=== PATIENT | male | born 1935 | race Caucasian/White ===

== ENCOUNTER 2020-11-16 10:04 | Outpatient (CLI) | payer MEDICARE, SELFPAY ==
--- NOTE | ~2020-11-16 | XR_ITS ---
EXAMINATION: XR abdomen/kub 1V INDICATION: Gross hematuria TECHNIQUE: Supine views of the abdomen were obtained on 2 radiographs. COMPARISON: None FINDINGS: A 6 mm stone projects in the lower pole of the left kidney. The bowel gas pattern is normal . There are changes of left total hip arthroplasty. Brachytherapy seeds are present in the prostate. 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 Severe lumbar spondylosis is noted. IMPRESSION: 1. Left nephrolithiasis. Reviewed, dictated and finalized at location A. OR QUANTITY SURVEYOR IMPRESSION: 1. Left nephrolithiasis.
--- NOTE | ~2020-11-16 | CT_ITS ---
EXAMINATION: CT abdomen pelvis wo/w con DATE: 11/16/2020 11:26 INDICATION: Gross hematuria TECHNIQUE: Computed tomography (CT) of the abdomen and pelvis was performed without intravenous contr ast. CT of the abdomen and pelvis was then performed with a total of 130 mL Omnipaque 350 intravenous contrast using a double-bolus technique for simultaneous opacification of the renal parenchyma and r enal collecting system. The dose-length product (DLP) was 2634.39 mGy-cm. Automated exposure control and iterative reconstruction technique were employed. COMPARISON: None FINDINGS: Minimal dependent atelectasis is present in the lung bases. The heart size is normal. There is a moderate-sized sliding hiatal hernia. The liver, spleen, pancreas, gallbladder, and adrenal gla nds are normal. Cysts of the kidneys measure up to 7 cm on the right. There is a thin septation withi n internal calcification in this large right kidney cyst (Bosniak II). No suspicious renal or urothel ial lesion is identified. There is a 6 mm stone in a lower pole calyx of the left kidney. No stones a re identified in the right kidney, ureters, or bladder. There is no hydronephrosis or hydroureter. Th ere is mild wall thickening of the urinary bladder. Brachytherapy seeds are noted in the prostate. Th ere is no free intraperitoneal gas or evidence of bowel obstruction. No pathologically enlarged abdom inal or pelvic lymph nodes are identified. There are changes of left total hip arthroplasty. There is atrophy of the left iliopsoas muscle. Severe lumbar spondylosis is noted. IMPRESSION: 1. Calyceal stone of the left kidney lower pole. 2. Mild wall thickening of the urinary bladder which could reflect chronic outlet obstruction or cyst itis. Reviewed, dictated and finalized at location A. REGENERATOR IMPRESSION: 1. Calyceal stone of the left kidney lower pole. 2. Mild wall thickening of the urinary bladder which could reflect chronic outl et obstruction or cystitis.
[2020-11-16 11:02] LABS: Estimated Glomerular Filt Rate 58
== END 2020-11-16 10:05 | disposition home or self-care (01) ==
PROVIDERS: Visit Provider Nurse Practitioner Adult Health
DX: R31.0 Gross hematuria (principal); N20.0 Calculus of kidney; R93.41 Abnormal radiologic findings on diagnostic imaging of renal pelvis, ureter, or bladder
CPT/HCPCS: 74018; 74178; Q9967

== ENCOUNTER 2020-11-29 02:06 | Outpatient (CLI) | payer MEDICARE, SELFPAY ==
[2020-11-29 18:12] LABS: SARS-CoV-2 RNA PCR Negative
== END 2020-11-29 02:07 | disposition home or self-care (01) ==
LOC: ANHCOVIDDT 02:10
PROVIDERS: Visit Provider Urology
DX: Z01.812 Encounter for preprocedural laboratory examination (principal); Z20.822 Contact with and (suspected) exposure to COVID-19
CPT/HCPCS: C9803; U0003; U0005

== ENCOUNTER 2020-11-29 09:13 | Outpatient (CLI) | payer MEDICARE, SELFPAY ==
--- NOTE | 2020-11-29 09:21 | ECG_ITS ---
Measurements Intervals [place] Rate: 99 P: 40 DC: 173 QRS: -31 QRSD: 106 T: 81 QT: 362 QTc: 466 Interpretive Statements SINUS RHYTHM VENTRICULAR COUPLET AND FREQUENT ATRIAL PREMATURE COMPLEXES DELAYED PRECORDIAL R/S TRANSITION INFERIOR INFARCT, AGE INDETERMINATE BORDERLINE ST-T WAVE ABNORMALITY- HIGH LATERAL LEADS ABNORMAL ECG Electronically Signed On 11-29-2020 11:06:43 RECOVERY ROOM RN by Jack Love D.O.
[2020-11-29 10:36] LABS: Prothrombin Time 13.3 Seconds (11.1-14.7)
[2020-11-29 10:37] LABS: Anion Gap 5 mmol/L (8-16); Blood Urea Nitrogen 24 mg/dL (9-20); Carbon Dioxide 32 mmol/L (22-30); Chloride 98 mmol/L (98-107); Estimated Glomerular Filt Rate 58; Glucose 135 mg/dL (75-110); Potassium 4.2 mmol/L (3.4-5.0); Sodium 135 mmol/L (137-145)
[2020-11-29 10:37] LABS: Partial Thromboplastin Time 29.1 SECONDS (22.3-36.8)
== END 2020-11-29 09:14 | disposition home or self-care (01) ==
LOC: ANHSURGERY 09:20
PROVIDERS: Anesthesiology; Visit Provider Urology
DX: Z01.818 Encounter for other preprocedural examination (principal); I10 Essential (primary) hypertension; N20.0 Calculus of kidney; Z79.899 Other long term (current) drug therapy
CPT/HCPCS: 36415; 80048; 85610; 85730; 87077; 87086; 87088; 87186; 93005; C9803; U0003; U0005

== ENCOUNTER 2020-12-12 14:05 | Outpatient (CLI) | payer MEDICARE, SELFPAY ==
[2020-12-12 15:03] LABS: Prothrombin Time 13.4 Seconds (11.1-14.7)
[2020-12-12 15:04] LABS: Partial Thromboplastin Time 29.2 SECONDS (22.3-36.8)
== END 2020-12-12 14:06 | disposition home or self-care (01) ==
PROVIDERS: Visit Provider Urology
DX: N20.0 Calculus of kidney (principal); Z01.812 Encounter for preprocedural laboratory examination
CPT/HCPCS: 36415; 85610; 85730; 87077; 87086; 87088

== ENCOUNTER → 2020-12-13 03:36 | Outpatient (CLI) | payer MEDICARE, SELFPAY ==
[2020-12-14 18:18] LABS: SARS-CoV-2 RNA PCR Negative
== END ==
PROVIDERS: Visit Provider Urology
DX: Z01.812 Encounter for preprocedural laboratory examination (principal); Z20.822 Contact with and (suspected) exposure to COVID-19
CPT/HCPCS: C9803; U0003; U0005

== ENCOUNTER 2020-12-16 00:57 | Day surgery (SDC) | payer MEDICARE, SELFPAY ==
[2020-11-28 15:49] VITALS: BMI 28.8
--- NOTE | 2020-11-30 12:26 | PC.NURSE ---
SPOKE TO PT'S RICK. STATES NO CHANGE IN HEALTH HX SINCE LAST INTERVIEW ON 11/28/20
--- NOTE | 2020-12-01 14:51 | WPDANESEPPF ---
Anes - Initial Pre Proc Eval Procedure: Operation Date: 12/02/20 15:30 Proposed Procedures p Left Renal Extracorporeal Shock Wave Lithotripsy - Minesh Tse MD Date/Time: 12/01/20 14:51 Surgeon: Minesh Tse MD Pre Op Diagnosis: Left Renal Kidney Stone Patient Data Age: 85 Gender: M Height: 1.78 m Weight: 91 kg Allergies Allergy/AdvReac Type Severity Reaction Status Date / Time No Known Allergies Allergy Unverified 11/28/20 15:41 Home Medications Medication Instructions Recorded Confirmed Type allopurinol 100 mg tablet 100 mg PO DAILY 10/11/20 11/28/20 History fexofenadine 180 mg tablet 180 mg PO DAILY 10/11/20 11/28/20 History hydrochlorothiazide 25 mg tablet 25 mg PO QAM 10/11/20 11/28/20 History simvastatin 20 mg tablet 20 mg PO DAILY 10/11/20 11/28/20 History tamsulosin 0.4 mg capsule 0.4 mg PO DAILY 10/11/20 11/28/20 History aspirin [Aspir-81] 81 mg PO DAILY 11/28/20 11/28/20 History cephalexin 250 mg PO HS 11/28/20 11/28/20 History fluticasone propion-salmeterol 1 inh INHALATION BID 11/28/20 11/28/20 History [Advair Diskus] uslunfgqvgja-nairczxl-[id number] 1 tablet PO DAILY 11/28/20 11/28/20 History [Centrum Silver] omeprazole 20 mg PO QAM 11/28/20 11/28/20 History PMFSH Past Medical History Medical History (Updated 12/01/20 @ 14:52 by Dieudonne Fleming MD) Arthritis CAD (coronary artery disease) Chronic GERD COPD (chronic obstructive pulmonary disease) Gout HTN (hypertension) Hypercholesterolemia Lung cancer Overweight (BMI 25.0-29.9) Prostate CA Surgical History Surgical History (Updated 12/01/20 @ 14:52 by Dieudonne Fleming MD) 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 Social History Social History (Updated 10/11/20 @ 09:36 by Angie Mccabe MA) Smoking packs per day: 1 Smoking cigarettes per day: 20.0 Years smoked: 40 Smoking pack-years: 40.00 Smoking status: Former smoker Smoking end date: 05/04/95 Alcohol intake: current Drinks per week: 9 Substance use: never Additional living arrangements comments: Spiritual care concerns: No Anes - Eval Final PreProcedure Day of Procedure 12/01/20 14:51 Patient weight: obese Heart: regular rate and rhythm Lungs: clear to auscultation and normal air movement Airway: Mallampati scale class II Neurological: alert and oriented Last oral intake: >/= 8 hours ASA classification: III Emergent: no Anesthetic plan: proceed Anesthesia type and monitoring: general LMA and ETT Informed Consent: The patient's anesthetic plan and its attendant risks and benefits were discussed with the patient/family/POA. Questions were solicited and answers provided to the satisfaction of the patient/family/POA.
--- NOTE | 2020-12-02 08:47 | WPDHPUPDATE1 ---
History and Physical Update Update Date/Time: 12/02/20 08:47 History and Physical has been reviewed, including an updated exam of the patient. There are NO changes in the patient's condition. Risks, benefits, and alternatives have been discussed and questions answered. Patient agrees to proceed with procedure.
[2020-12-09 11:32] VITALS: BMI 28.8
--- NOTE | 2020-12-13 08:40 | P.HP_ITS ---
History of Present Illness History of Present Illness Consent: Risks, benefits, and alternatives have been discussed and questions answered. Patient agrees to proceed with procedure. Chief complaint: Left Renal Stone Narrative: Cedric Mckinney is a 85 year old male with known irritable voiding, overactive bladder and hematuria. He has recently undergone a Botox injection for the overactive bladder. At that time his bladder was found to be unremarkable. CT scan of the abdomen pelvis done for hematuria reveals a 6 mm nonobstructing left renal stone. After discussion of therapeutic options he elected for left ESWL. 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 Social History Social History Smoking packs per day: 1 Smoking cigarettes per day: 20.0 Years smoked: 44 Smoking pack-years: 44.00 Smoking status: Former smoker Smoking end date: 05/04/95 Alcohol intake: current Drinks per week: 1 Substance use: never Additional living arrangements comments: Spiritual care concerns: No Meds Home Medications and Allergies Home Medications Medication Instructions Recorded Confirmed Type allopurinol 100 mg tablet 100 mg PO DAILY 10/11/20 12/09/20 History fexofenadine 180 mg tablet 180 mg PO DAILY 10/11/20 12/09/20 History hydrochlorothiazide 25 mg tablet 25 mg PO QAM 10/11/20 12/09/20 History simvastatin 20 mg tablet 20 mg PO DAILY 10/11/20 12/09/20 History tamsulosin 0.4 mg capsule 0.4 mg PO DAILY 10/11/20 12/09/20 History aspirin [Aspir-81] 81 mg PO DAILY 11/28/20 12/09/20 History fluticasone propion-salmeterol 1 inh INHALATION BID 11/28/20 12/09/20 History [Advair Diskus] ddjoyqounwsk-kfqijehm-zztnms 1 tablet PO DAILY 11/28/20 12/09/20 History [Centrum Silver] omeprazole 20 mg PO QAM 11/28/20 12/09/20 History levofloxacin 500 mg PO HS 12/09/20 12/09/20 History Allergies Allergy/AdvReac Type Severity Reaction Status Date / Time No Known Allergies Allergy Unverified 12/09/20 11:29 Exam Const: General: no acute distress Resp: Effort & Inspection: normal respiratory effort GI: Inspection: non-distended GI Palp: No abdominal tenderness and No Guarding due to palpation present (GI) Auscultation: normal bowel sounds Assessment and Plan Assessment and plan (1) Left renal stone: Code(s): N20.0 - Calculus of kidney Status: Acute Assessment and Plan: * Left ESWL
--- NOTE | 2020-12-15 15:50 | WPDANESEPPF ---
Anes - Initial Pre Proc Eval Procedure: Operation Date: 12/16/20 11:00 Proposed Procedures p Left Renal Extracorporeal Shock Wave Lithotripsy - Minesh Tse MD Date/Time: 12/15/20 15:50 Surgeon: Minesh Tse MD Pre Op Diagnosis: Left Renal Stone Patient Data Age: 85 Gender: M Height: 1.78 m Weight: 91 kg Allergies Allergy/AdvReac Type Severity Reaction Status Date / Time No Known Allergies Allergy Unverified 12/16/20 09:30 Home Medications Medication Instructions Recorded Confirmed Type allopurinol 100 mg tablet 100 mg PO DAILY 10/11/20 12/16/20 History fexofenadine 180 mg tablet 180 mg PO DAILY 10/11/20 12/16/20 History hydrochlorothiazide 25 mg tablet 25 mg PO QAM 10/11/20 12/16/20 History simvastatin 20 mg tablet 20 mg PO DAILY 10/11/20 12/16/20 History tamsulosin 0.4 mg capsule 0.4 mg PO DAILY 10/11/20 12/16/20 History aspirin [Aspir-81] 81 mg PO DAILY 11/28/20 12/16/20 History fluticasone propion-salmeterol 1 inh INHALATION BID 11/28/20 12/16/20 History [Advair Diskus] [id number]-htidodgr-qzkcsp 1 tablet PO DAILY 11/28/20 12/16/20 History [Centrum Silver] omeprazole 20 mg PO QAM 11/28/20 12/16/20 History levofloxacin 500 mg PO HS 12/09/20 12/16/20 History Patient hx anesthesia problems: none Family hx anesthesia problems: none [facility] Past Medical History Medical History Arthritis CAD (coronary artery disease) Chronic GERD COPD (chronic obstructive pulmonary disease) Gout HTN (hypertension) Hypercholesterolemia Lung cancer Overweight (BMI 25.0-29.9) Prostate CA Surgical History Surgical History 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 Social History Social History Smoking packs per day: 1 Smoking cigarettes per day: 20.0 Years smoked: 44 Smoking pack-years: 44.00 Smoking status: Former smoker Smoking end date: 05/04/95 Alcohol intake: current Drinks per week: 1 Alcohol use details: 1 GIN & TONIC/DAY Substance use: never Living arrangements: with family Additional living arrangements comments: Spiritual care concerns: No Anes - Eval Final PreProcedure Day of Procedure 12/15/20 15:50 Patient weight: overweight Heart: regular rate and rhythm Lungs: clear to auscultation and normal air movement Airway: Mallampati scale class II Neurological: alert and oriented Last oral intake: >/= 8 hours ASA classification: III Emergent: no Anesthetic plan: proceed Anesthesia type and monitoring: general LMA Informed Consent: The patient's anesthetic plan and its attendant risks and benefits were discussed with the patient/family/POA. Questions were solicited and answers provided to the satisfaction of the patient/family/POA.
[2020-12-16] VITALS (7 sets, daily range): BP systolic 122–147; BP diastolic 70–82; PULSE 56–78; RESP 13–20; TEMP 36.1–36.2; O2SAT 94–99
--- NOTE | ~2020-12-16 | XR_ITS ---
EXAMINATION: XR abdomen/kub 1V INDICATION: Gross hematuria TECHNIQUE: Supine views of the abdomen were obtained on 2 radiographs. COMPARISON: 11/16/2020 FINDINGS: Bowel contents project over the kidneys limiting sensitivity for renal stones. The previous ly identified stone in the left kidney lower pole is not definitely identified. No definite stone is seen along the expected course of the left ureter. A large osteophyte is noted on the left at L3-4. B rachytherapy seeds are noted in the prostate. There are changes of left total hip arthroplasty. Sever e lumbar spondylosis is noted. IMPRESSION: 1. No definite urolithiasis identified. Reviewed, dictated and finalized at location A. E PILOT
--- NOTE | 2020-12-16 06:38 | WPDHPUPDATE1 ---
History and Physical Update Update Date/Time: 12/16/20 06:38 History and Physical has been reviewed, including an updated exam of the patient. There are NO changes in the patient's condition. Risks, benefits, and alternatives have been discussed and questions answered. Patient agrees to proceed with procedure.
[2020-12-16] MEDS: LACTATED RINGERS 1,000 ML 30 ML IV CONT ×2 (09:50→11:59)
[2020-12-16] MEDS: ceFAZolin 2 GM/D5W 50 ML 2 GM/50 ML BAG IVPB (10:50)
--- NOTE | 2020-12-16 11:27 | PM.PROC ---
Procedure Note - Detailed Date of procedure: 12/16/20 Pre-op diagnosis: Left Renal Stone Post-op diagnosis: same Procedure performed: Left ESWL Description of procedure: The patient was brought to the operative suite where he was placed in the supine position on the Dornier lithotripsy table. The 5mm left lower pole stone could not reliably identified on fluoroscopy so we administered 100cc of IV contrast and shocked the lower pole calyx. A total of 2500 shocks were delivered at a power setting of 4. There appeared to be good fragmentation of the stone. The patient tolerated the procedure well and was taken to the recovery room in good condition. Anesthesia: GLMA Surgeon: Minesh Tse MD Drains: No Packing: No Pathology: none sent Complications: No immediate complications Condition: stable Disposition: PACU
== END 2020-12-16 13:32 | disposition home or self-care (01) ==
PROVIDERS: Visit Provider Urology
PROC: (CPT 50590; principal; 2020-12-16 11:00)
DX: N20.0 Calculus of kidney (principal); I10 Essential (primary) hypertension; I25.10 Atherosclerotic heart disease of native coronary artery without angina pectoris; J44.9 Chronic obstructive pulmonary disease, unspecified; K21.9 Gastro-esophageal reflux disease without esophagitis; E78.00 Pure hypercholesterolemia, unspecified; M10.9 Gout, unspecified; Z85.46 Personal history of malignant neoplasm of prostate; Z85.118 Personal history of other malignant neoplasm of bronchus and lung; Z79.82 Long term (current) use of aspirin; Z95.1 Presence of aortocoronary bypass graft; Z87.891 Personal history of nicotine dependence
CPT/HCPCS: 50590; 74018; J0690; J1100; J2370; J2405; J2704; J7120; Q9966

== ENCOUNTER 2021-03-31 12:47 | Outpatient (CLI) | payer MEDICARE, SELFPAY ==
--- NOTE | ~2021-03-31 | MR_ITS ---
EXAMINATION: MR lumbar spine wo con DATE: 03/31/2021 13:33 INDICATION: Lumbar radiculopathy. TECHNIQUE: Magnetic resonance imaging (MRI) of the lumbar spine was performed without intravenous con trast. Sequences included sagittal T2-weighted FSE, sagittal STIR FSE, sagittal T1-weighted FSE, and axial T2-weighted FSE. COMPARISON: None FINDINGS: There is 12 degrees dextroscoliosis of lumbar spine. There is 4 mm retrolisthesis of L2 on L3 and L3 on L4. There is 3 mm anterolisthesis of L5 on S1. There is severely decreased disc height f rom T12-L1 through L5-S1 with endplate remodeling. The distal spinal cord signal intensity is normal. The conus medullaris is at L1. There are cysts in the kidneys measuring up to 4.4 cm on the right. T he following disc levels are specifically discussed: L1-L2: The disc is bulging and has an annular fissure. There is mild bilateral facet joint osteoarthr itis. There is mild bilateral neural foraminal stenosis. There is mild central canal stenosis. L2-L3: The disc is bulging and has an annular fissure. There is severe bilateral facet joint osteoart hritis. There is moderate bilateral neural foraminal stenosis. There is mild central canal stenosis. L3-L4: The disc is bulging and has an annular fissure. There is severe bilateral facet joint osteoart hritis. There is moderate bilateral neural foraminal stenosis. There is mild central canal stenosis w ith posterior decompression. L4-L5: The disc is bulging and has an annular fissure. There is severe bilateral facet joint osteoart hritis. There is moderate right and mild left neural foraminal stenosis. There is mild central canal stenosis. L5-S1: The disc is bulging and has an annular fissure. There is severe bilateral facet joint osteoart hritis. There is mild bilateral neural foraminal stenosis. There is mild central canal stenosis. IMPRESSION: 1. Severe lumbar spondylosis. 2. Lumbar dextroscoliosis. Reviewed, dictated and finalized at location A.
== END 2021-03-31 12:48 | disposition home or self-care (01) ==
PROVIDERS: Visit Provider Neurological Surgery
DX: M54.16 Radiculopathy, lumbar region (principal); M47.816 Spondylosis without myelopathy or radiculopathy, lumbar region; M41.86 Other forms of scoliosis, lumbar region
CPT/HCPCS: 72148

== ENCOUNTER 2021-07-24 13:57 | Outpatient (CLI) | payer MEDICARE, SELFPAY ==
--- NOTE | ~2021-07-24 | XR_ITS ---
EXAMINATION: XR abdomen/kub 1V DATE: 07/24/2021 14:30 INDICATION: Left kidney stone. TECHNIQUE: A supine view of the abdomen on 2 radiographs was obtained. COMPARISON: CT abdomen and pelvis 11/16/20, abdomen radiographs 12/16/2020, 11/16/2020 FINDINGS: There are no dilated loops of bowel. There are brachytherapy seeds in the prostate. There i s a 6 mm stone in distal left ureter. There is a total left hip arthroplasty. Median sternotomy wires and mediastinal surgical clips are seen, likely from prior coronary artery bypass grafting. IMPRESSION: 1. 6 mm stone in distal left ureter. Reviewed, dictated and finalized at location A.
== END 2021-07-24 13:58 | disposition home or self-care (01) ==
LOC: ANHIMG 14:05
PROVIDERS: Visit Provider Urology
DX: N21.0 Calculus in bladder (principal)
CPT/HCPCS: 74018

== ENCOUNTER 2021-08-01 08:36 | Outpatient (CLI) | payer MEDICARE, SELFPAY ==
--- NOTE | ~2021-08-01 | CT_ITS ---
EXAMINATION: CT abdomen pelvis wo con EXAM DATE: 08/01/2021 08:59 INDICATION: Left-sided flank pain. Kidney stone. TECHNIQUE: Spiral CT of the abdomen and pelvis was performed without contrast. Axial, coronal and sag ittal images were reviewed. The dose-length product (DLP) for this examination was 440.63 mGy-cm. T he exposure was tailored according to patient size (auto mA exposure control), and iterative reconstr uction (ASIR) was used as additional dose reduction technique. Comparison is made to prior examinatio n from 11/16/2020. FINDINGS: There are bilateral fluid density renal lesions consistent with cysts, largest on the right measuring 7.5 cm. There are bilateral renal peripelvic cysts. There is bilateral renal cortical thin bryanna, atrophy. There is a stone in the distal aspect of the left ureter, about 4 cm from the ureterov esicular junction, measuring about 3 x 6 mm. No hydronephrosis at present. There are prostate radiat ion seeds. The bladder is unremarkable. The liver, spleen, adrenal glands and pancreas are unremarkable. Gallbladder is unremarkable. No bi liary obstruction. There is no retroperitoneal or pelvic lymphadenopathy. There is extensive scatt ered arterial sclerotic disease. The appendix is normal. There is moderate sigmoid predominant colonic diverticulosis. There is no ad jacent inflammatory change to suggest diverticulitis. There is small to moderate-sized gastroesophag eal hiatal hernia. There is expected amount of colonic stool. No free intraperitoneal gas. The h eart is normal in size. There are no pericardial or pleural effusions. The lung bases are unremarka ble. Advanced lumbar spondylosis. There are no osteoblastic or osteolytic lesions identified. There is left hip replacement. Mild thoracolumbar scoliosis. IMPRESSION: 1. Left distal ureteral 3 x 6 mm stone. No hydronephrosis at present. 2. Moderate sigmoid diverticulosis. 3. Small to moderate hiatal hernia. 4. Other chronic findings. Reviewed, dictated and finalized at location A.
== END 2021-08-01 08:37 | disposition home or self-care (01) ==
LOC: ANHIMG 08:40
PROVIDERS: Visit Provider Urology
DX: N20.0 Calculus of kidney (principal); K57.30 Diverticulosis of large intestine without perforation or abscess without bleeding; K44.9 Diaphragmatic hernia without obstruction or gangrene
CPT/HCPCS: 74176

== ENCOUNTER 2021-08-15 13:59 | Outpatient (RCR) | payer MEDICARE, SELFPAY ==
--- NOTE | 2021-08-15 15:11 | PTOPEVAL ---
PHYSICAL THERAPY EVALUATION AND PLAN OF CARE 08-15-21 Thank you for referring Cedric Mckinney to [facility] for the diagnosis of BPPV. He is to call for any questions, or to make an appointment, if additional PT is needed, ?0-2 x/week for 4 weeks. Please review, sign, date and return this plan of care ANU. I agree with and certify that the following plan of care is medically necessary. Referring Physician Date Attending Provider: Minesh Mckoy MD PT Outpatient Evaluation Document 08/15/21 14:10 JULIANNA (Rec: 08/15/21 15:10 JULIANNA [id number]) Past Medical History Source of Past Medical History Recalled from Previous Visit, Confirmed with Patient/Family Neurological History Hx Neurological Disorders No Significant History Cardiovascular History Hx Cardiac Catheterization Yes Hx Coronary Artery Bypass Graft Yes: CABG 5 VESSEL 2015 Hx Hypercholesterolemia Yes: meds Hx Hypertension Yes: meds Hx Other Cardiac Disorders Yes Respiratory History Hx Chronic Obstructive Pulmonary Disease Yes (COPD) Hx Other Respiratory Disorders Yes: LUNG CA 2019- RADIATION ONLY Gastrointestinal History Hx Gastroesophageal Reflux Disease Yes Genitourinary History Hx Kidney Stones Yes: LT KIDNEY STONE Hx Other Genitourinary Disorders Yes: SELF CATHS QID X 2 YEARS, BOTOX INJECTIONS TO BLADDER Q6 MO, PROSTATE CA Musculoskeletal History Hx Arthritis Yes: R ankle Hx Back Pain Yes: chronic pain in back Hx Gout Yes Hx Joint Replacement Yes: LEFT HIP ARTHROPLASTY 1997 Hx Spinal Surgery Yes: lumbar surgery Hematological History Hx Hematological Disorders No Significant History Endocrine History Hx Endocrine Disorders No Significant History HEENT History Hx Cataracts Yes: BILAT IMPLANTS Hx Sinus Problems Yes: seasonal allergies- 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
--- NOTE | 2021-10-03 13:27 | PCPTNOTE ---
PHYSICAL THERAPY DISCHARGE 10-03-21 Attending Provider: Minesh Mckoy MD Patient:Cedric Mckinney Date of :1935 Cedric has not returned for any further treatments since the initial evaluation on 08/15/2021, therefore he will be discharged at this time. The goals were not assessed. Thank you for referring Mr. Mckinney to [facility]. Please review, sign, date and return this discharge summary ANU. I have been updated about the patient's current status and I agree with discharge from the above service at this time. Referring Physician Date
== END 2021-10-04 08:57 | disposition home or self-care (01) ==
LOC: ANHPT 13:59
PROVIDERS: Visit Provider Otolaryngology
DX: H81.10 Benign paroxysmal vertigo, unspecified ear (principal)
CPT/HCPCS: 97161

== ENCOUNTER 2021-08-28 09:46 | Outpatient (CLI) | payer MEDICARE, SELFPAY ==
--- NOTE | ~2021-08-28 | CT_ITS ---
EXAMINATION: CT abdomen pelvis wo con DATE: 08/28/2021 10:17 INDICATION: Hematuria, left-sided kidney stone TECHNIQUE: Computed tomography (CT) of the abdomen and pelvis was performed without intravenous contr ast. The dose-length product (DLP) was 540.39 mGy-cm. Automated exposure control and iterative recons truction technique were employed. COMPARISON: 08/01/2021 FINDINGS: Minimal dependent atelectasis is present in the lung bases. The heart size is normal. Bilat eral gynecomastia is noted. 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 Median s ternotomy wires are noted. There is a moderate-sized sliding hiatal hernia. The liver, spleen, pancre as, gallbladder, and adrenal glands are normal. Cysts of the kidneys measure up to 7.6 cm on the righ t. The largest right kidney cyst demonstrates septation within internal calcification. The previously described 6 mm distal left ureteral stone now resides near the left ureterovesicular junction. There is no appreciable hydronephrosis or hydroureter. There is calcified atherosclerosis of the aorta and many of the other arteries. No pathologically enlarged abdominal or pelvic lymph nodes are identifie d. Streak artifact from left total hip arthroplasty slightly limits evaluation of the pelvis. Brachyt herapy seeds are noted in the prostate. The appendix is normal. There is severe lumbar spondylosis. IMPRESSION: 1. 6 mm stone of the left ureter which demonstrates distal migration and now resides near the left ur eterovesicular junction. Reviewed, dictated and finalized at location A. IMPRESSION: 1. 6 mm stone of the left ureter which demonstrates distal migration and now re sides near the left ureterovesicular junction.
== END 2021-08-28 09:47 | disposition home or self-care (01) ==
LOC: ANHIMG 09:50
PROVIDERS: Visit Provider Urology
DX: N20.0 Calculus of kidney (principal)
CPT/HCPCS: 74176

== ENCOUNTER 2021-08-31 01:27 | Day surgery (SDC) | payer MEDICARE, SELFPAY ==
[2021-08-30 09:39] VITALS: BMI 28.4
--- NOTE | 2021-08-30 10:58 | WPDANESEPPF ---
Anes - Initial Pre Proc Eval Procedure: Operation Date: 08/31/21 13:15 Proposed Procedures p Cystoscopy, Left Ureteroscopy, Possible Retrograde Pyelogram, Stone Extraction, Possible Stent Placement - Minesh Tse MD s Possible Holmium Laser Procedure - Mniesh Tse MD Date/Time: 08/30/21 10:58 Surgeon: Minesh Tse MD Pre Op Diagnosis: ureteral stones Patient Data Age: 85 Gender: M Height: 1.78 m Weight: 90 kg Allergies Allergy/AdvReac Type Severity Reaction Status Date / Time No Known Allergies Allergy Verified 08/30/21 09:38 Home Medications Medication Instructions Recorded Confirmed Type allopurinol 100 mg tablet 100 mg PO DAILY 10/11/20 08/30/21 History fexofenadine 180 mg tablet 180 mg PO DAILY 10/11/20 08/30/21 History hydrochlorothiazide 25 mg tablet 25 mg PO QAM 10/11/20 08/30/21 History simvastatin 20 mg tablet 20 mg PO DAILY 10/11/20 08/30/21 History tamsulosin 0.4 mg capsule 0.4 mg PO DAILY 10/11/20 08/30/21 History aspirin 81 mg PO DAILY 11/28/20 08/30/21 History fluticasone propion-salmeterol 1 inh INHALATION BID 11/28/20 08/30/21 History [Advair Diskus] [id number] 1 tablet PO DAILY 11/28/20 08/30/21 History omeprazole 20 mg PO QAM 11/28/20 08/30/21 History levofloxacin 500 mg PO HS 12/09/20 08/30/21 History prochlorperazine maleate 10 mg 10 mg PO Q8H PRN 07/26/21 08/30/21 History tablet Patient hx anesthesia problems: none Family hx anesthesia problems: none Results Review: All pre-operative results and documents have been reviewed as part of the pre-operative evaluation. [facility] Past Medical History Medical History Arthritis CAD (coronary artery disease) Chronic GERD COPD (chronic obstructive pulmonary disease) Gout HTN (hypertension) Hypercholesterolemia Lung cancer Overweight (BMI 25.0-29.9) Prostate CA Surgical History Surgical History S/P CABG (coronary artery bypass graft) 5 V 2015 Social History Social History Smoking packs per day: 1 Smoking cigarettes per day: 20.0 Years smoked: 40 Smoking pack-years: 40.00 Smoking status: Former smoker Tobacco type: cigarettes Second hand tobacco smoke exposure: No Smoking end date: 05/04/95 Alcohol intake: current Drinks per week: 9 Alcohol use details: 1 GIN & TONIC/DAY Substance use: never Substance use type: does not use Living arrangements: with family Additional living arrangements comments: Spiritual care concerns: No Anes - Eval Final PreProcedure Day of Procedure 08/30/21 10:58 Patient weight: overweight Heart: regular rate and rhythm Lungs: clear to auscultation and normal air movement Airway: Mallampati scale class II Neurological: alert and oriented Last oral intake: >/= 8 hours ASA classification: III Emergent: no Anesthetic plan: proceed Anesthesia type and monitoring: general LMA and standard monitoring Results Review: All pre-operative results and documents have been reviewed as part of the pre-operative evaluation. Informed Consent: The patient's anesthetic plan and its attendant risks and benefits were discussed with the patient/family/POA. Questions were solicited and answers provided to the satisfaction of the patient/family/POA.
[2021-08-31] VITALS (7 sets, daily range): BP systolic 131–160; BP diastolic 65–87; PULSE 65–78; RESP 15–18; TEMP 36.1–36.6; O2SAT 94–100; BMI 28.4
--- NOTE | ~2021-08-31 | XR_ITS ---
EXAMINATION: XR fluoroscopy no charge INDICATION: Intraoperative stone removal TECHNIQUE: Fluoroscopy exposure time was 1.7 seconds. Two intraoperative fluoroscopic images are subm itted for review. COMPARISON: None available FINDINGS: Fluoroscopic images demonstrate brachytherapy seeds in the prostate, a left total hip arthr oplasty, and a guidewire in the left ureter. Please refer to procedure note for full details. IMPRESSION: 1. Please refer to procedure note for full details. Reviewed, dictated and finalized at location A.
--- NOTE | 2021-08-31 06:45 | PM.HPGS ---
History of Present Illness History of Present Illness Consent: Risks, benefits, and alternatives have been discussed and questions answered. Patient agrees to proceed with procedure. 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 Given history of urolithiasis, a recent CT scan showed 6mm left distal ureteral stone that hasn't passed over several weeks. Review of Systems Cardiovascular: Cardiovascular: Denies chest pain, Denies lightheadedness, Denies palpitations and Denies dyspnea Respiratory: Respiratory: Denies dyspnea Gastrointestinal: Gastrointestinal: Denies diarrhea, Denies nausea and Denies vomiting Genitourinary: Genitourinary: Denies hematuria and Denies dysuria Endocrine: Endocrine: Denies palpitations PMFSH Past Medical History Medical History Arthritis CAD (coronary artery disease) Chronic GERD COPD (chronic obstructive pulmonary disease) Gout HTN (hypertension) Hypercholesterolemia Lung cancer Overweight (BMI 25.0-29.9) Prostate CA Surgical History Surgical History 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 Social History Social History Smoking packs per day: 1 Smoking cigarettes per day: 20.0 Years smoked: 40 Smoking pack-years: 40.00 Smoking status: Former smoker Tobacco type: cigarettes Second hand tobacco smoke exposure: No Smoking end date: 05/04/95 Alcohol intake: current Drinks per week: 9 Alcohol use details: 1 GIN & TONIC/DAY Substance use: never Substance use type: does not use Living arrangements: with family Additional living arrangements comments: Spiritual care concerns: No Meds Home Medications and Allergies Home Medications Medication Instructions Recorded Confirmed Type allopurinol 100 mg tablet 100 mg PO DAILY 10/11/20 08/30/21 History fexofenadine 180 mg tablet 180 mg PO DAILY 10/11/20 08/30/21 History hydrochlorothiazide 25 mg tablet 25 mg PO QAM 10/11/20 08/30/21 History simvastatin 20 mg tablet 20 mg PO DAILY 10/11/20 08/30/21 History tamsulosin 0.4 mg capsule 0.4 mg PO DAILY 10/11/20 08/30/21 History aspirin 81 mg PO DAILY 11/28/20 08/30/21 History fluticasone propion-salmeterol 1 inh INHALATION BID 11/28/20 08/30/21 History [Advair Diskus] [id number] 1 tablet PO DAILY 11/28/20 08/30/21 History omeprazole 20 mg PO QAM 11/28/20 08/30/21 History levofloxacin 500 mg PO HS 12/09/20 08/30/21 History prochlorperazine maleate 10 mg 10 mg PO Q8H PRN 07/26/21 08/30/21 History tablet Allergies Allergy/AdvReac Type Severity Reaction Status Date / Time No Known Allergies Allergy Verified 08/30/21 09:38 Exam Const: General: no acute distress Resp: Effort & Inspection: normal respiratory effort GI: Inspection: non-distended GI Palp: No abdominal tenderness and No Guarding due to palpation present (GI) Auscultation: normal bowel sounds Assessment and Plan Assessment and plan (1) Left ureteral stone: Code(s): N20.1 - Calculus of ureter Status: Acute Assessment and Plan: Cystoscopy, left ureteroscopy with stone extraction, possible laser lithotripsy and possible stent placement.
--- NOTE | 2021-08-31 06:48 | WPDHPUPDATE1 ---
History and Physical Update Update Date/Time: 08/31/21 06:48 History and Physical has been reviewed, including an updated exam of the patient. There are NO changes in the patient's condition. Risks, benefits, and alternatives have been discussed and questions answered. Patient agrees to proceed with procedure.
[2021-08-31] MEDS: LACTATED RINGERS 1,000 ML 30 ML IV CONT (12:00)
[2021-08-31] MEDS: ceFAZolin 2 GM/D5W 50 ML 2 GM/50 ML BAG IVPB (13:05)
[2021-08-31 13:12] LABS: Anion Gap 7 mmol/L (8-16); Blood Urea Nitrogen 24 mg/dL (9-20); Calcium 9.5 mg/dL (8.4-10.2); Carbon Dioxide 29 mmol/L (22-30); Chloride 104 mmol/L (98-107); Estimated CRCL calculation 49 ml/min; Estimated Glomerular Filt Rate > 60; Glucose 103 mg/dL (65-110); Potassium 3.8 mmol/L (3.4-5.0); Sodium 140 mmol/L (137-145)
[2021-08-31] MEDS: KETOROLAC 15 MG/ML VIAL (*BKC) IV PUSH (13:31)
--- NOTE | 2021-08-31 13:36 | P.OP_ITS ---
Procedure Note - Detailed Date of Procedure 08/31/21 Pre-op Diagnosis Left ureteral stone Post-op Diagnosis same Procedure Performed Cystoscopy, left ureteroscopy with stone extraction Surgeon Minesh Tse MD Anesthesia general Description of Procedure The patient was brought to the operative suite where he is prepped and draped in a routine sterile fashion while in the dorsal lithotomy position after the uneventful induction of a general LMA anesthetic. A 19F rigid cystoscope was placed in the bladder. There are no urethral strictures. His prostatic urethra measures, approximately, 3.0cm with moderate median lobe enlargement. The bladder mucosa was endoscopically normal without hyperemia or neoplasm. There was a single, orthotopic ureteral orifice bilaterally. A 0.035 glidewire was advanced into the left renal pelvis under fluoroscopy. The distal ureter was dilated with an 8F/10F ureteral dilator. Ureteroscopy was undertaken with a short, tapered, semi-rigid ureteroscope and the stone was extracted with ease using a 1.9F Escape disposable stone basket. Due to the ease of this manip ulation I opted not to place a ureteral stent. The patient's bladder was emptied and was taken to the recovery room having tolerated this procedure well. Drains No Packing No Pathology yes Complications No immediate complications Condition stable Disposition PACU
== END 2021-08-31 15:15 | disposition home or self-care (01) ==
PROVIDERS: Anesthesiology; Visit Provider Urology
PROC: (CPT 52352; principal; 2021-08-31 13:15)
DX: N20.1 Calculus of ureter (principal); I10 Essential (primary) hypertension; K21.9 Gastro-esophageal reflux disease without esophagitis; J44.9 Chronic obstructive pulmonary disease, unspecified; M19.90 Unspecified osteoarthritis, unspecified site; E78.00 Pure hypercholesterolemia, unspecified; Z79.82 Long term (current) use of aspirin; I25.10 Atherosclerotic heart disease of native coronary artery without angina pectoris; M10.9 Gout, unspecified; Z85.46 Personal history of malignant neoplasm of prostate; Z95.1 Presence of aortocoronary bypass graft; Z87.891 Personal history of nicotine dependence
CPT/HCPCS: 52352; 36415; 74018; 80048; 82365; 88300; C1769; J0690; J1100; J1885; J2405; J2704; J3010; J7120; Q9966

== ENCOUNTER 2022-03-06 09:56 | Outpatient (CLI) | payer MEDICARE, SELFPAY ==
--- NOTE | ~2022-03-06 | XR_ITS ---
EXAMINATION: XR abdomen/kub 1V INDICATION: Left-sided stone TECHNIQUE: Supine views of the abdomen were obtained on 2 radiographs. COMPARISON: 07/24/2021 FINDINGS: The previously described distal left ureteral stone is no longer evident. Bowel contents pr oject over the kidneys limiting sensitivity for renal stones. No urolithiasis is identified. There is severe lumbar spondylosis. Changes of left total hip arthroplasty are noted. There are brachytherapy seeds in the prostate. IMPRESSION: 1. No urolithiasis identified. Reviewed, dictated and finalized at location A.
== END 2022-03-06 09:57 | disposition home or self-care (01) ==
PROVIDERS: Visit Provider Urology
DX: N20.0 Calculus of kidney (principal); M47.816 Spondylosis without myelopathy or radiculopathy, lumbar region
CPT/HCPCS: 74018

== ENCOUNTER 2024-04-16 08:38 | Outpatient (CLI) | payer MEDICARE, SELFPAY | END 2024-04-16 08:39 | disposition home or self-care (01) | LOC: ANHAUDASC 08:40 | PROVIDERS: Visit Provider Otolaryngology | DX: H91.93 Unspecified hearing loss, bilateral (principal) | CPT/HCPCS: 92557; 92567 ==

== ENCOUNTER 2024-07-22 09:30 | Outpatient (RCR) | payer SELFPAY | END 2024-07-28 23:59 | disposition home or self-care (01) | LOC: ANHAUDASC 09:30 | PROVIDERS: Visit Provider Otolaryngology | DX: Z46.1 Encounter for fitting and adjustment of hearing aid (principal) | CPT/HCPCS: 99199; V5261; V5264 ==

== ENCOUNTER 2024-10-28 22:15 | Emergency (ER) | payer MEDICARE, SELFPAY ==
[2024-10-28 22:16] VITALS: BP 161/70; PULSE 68; RESP 20; TEMP 36.1; O2SAT 96
--- NOTE | 2024-10-28 22:21 | ECG_ITS ---
Test Date: 2024-10-28 22:27:51 Measurements Intervals [place] Rate: 59 P: 24 NE: 214 QRS: 37 QRSD: 142 T: 61 QT: 451 QTc: 447 Interpretive Statements SINUS BRADYCARDIA WITH FIRST DEGREE AV BLOCK INDETERMINATE AXIS RIGHT BUNDLE BRANCH BLOCK [120+ ms QRS DURATION, UPRIGHT V1, 40+ ms S IN I/aVL/V4/V5/V6] CAN NOT RULE OUT INFERIOR INFARCTION AGE UNDETERMINED ABNORMAL ECG Electronically Signed On 10-30-2024 16:49:36 SOCK LINING STITCHER by Zaki Sue M.D.
--- NOTE | 2024-10-28 23:35 | PC.NURSE ---
Pt approached triage desk stating that they were going to go home. This RN advised them to be seen at nearest ER if they feel it is necessary.
--- OUTSIDE RECORDS SUMMARY | 2024-11-05 00:07 | XMS_ITS | Continuity of Care Document ---
Author Organization [facility] Address [address] [place] [id number] Care Team Providers Care Epic Specialist Name Role Phone Luis Fernando Lebron Primary Care Physician Jeremie Mujica Unavailable Garland Haywood Unavailable Encounter [facility] Financial Number [id number] Date(s): 02/11/23 - 02/11/[address] [id number] Discharge Disposition: Home or Self Care Attending Physician: Luis Fernando Lebron M.D. Admitting Physician: Luis Fernando Lebron M.D. Referring Physician: Luis Fernando Lebron M.D. Allergies, Adverse Reactions, Alerts No Known Allergies Assessment and Plan Future Appointments Appointment Date:02/19/2023 01:30:00 PM Scheduled Provider:Gerhard Sultana MD Location:Rad Onc Appointment Type:RO Follow Up Appointment Date:03/11/2023 08:30:00 AM Scheduled Provider:Garland Haywood MD Location:[facility] Spec Appointment Type:Virtual Telephone Visit Appointment Date:07/31/2023 10:15:00 AM Scheduled Provider:Susan Montiel MD Location:[facility] 310N Appointment Type:CPA EP Established Patient Immunizations Given and Recorded Vaccine Date Status Refusal Reason SARS-CoV-2 (COVID-19) mRNA BNT-162b2 vax 08/03/22 Recorded influenza virus vaccine, inactivated 08/03/22 Graham rded influenza virus vaccine, inactivated 08/03/22 Graham rded influenza virus vaccine, inactivated 08/29/18 Graham rded influenza virus vaccine, H1N1, inactivat 07/15/17 Recorded pneumococcal 13-valent vaccine 10/14/14 Recorded Medications Advair Diskus 250 mcg-50 mcg inhalation powder 1 puff(s), Inhalation, bid, 180 each, 10, 90, Route to Pharmacy Electronically, [facility], [id number], 175, cm, 11/13/2021 1717, Height, 86.3, kg, 11/13/2021 1717, Weight Start Date: 01/22/22 Status: Ordered albuterol 90 mcg/inh inhaler 2 puff(s), Inhalation, [id number], PRN, 1 each, Inhaler, 3, 3, shortness of breath, Slow Breath inhaleslowly and deeply , Route to Pharmacy Electronically, [facility], [id number], 175, cm, 07/25/2022 1145, Height, 97.... Start Date: 07/25/22 Status: Ordered allopurinol 100 mg oral tablet 1 tablet(s), Oral, daily, 90 tablet(s), 3, FOR GOUT PREVENTION., Route to Pharmacy Electronically, [facility], [id number], 175, cm, 07/25/2022 1145, Height, 97.5, kg, 07/25/2022 1145, Weight Start Date: 08/06/22 Status: Ordered aspirin 81 mg oral enteric coated tablet 81 mg, 1 tablet(s), Oral, daily, Tab EC, 0 Start Date: 11/08/17 Status: Ordered Entresto 49 mg-51 mg oral tablet 1 tablet(s), Oral, bid, 180 tablet(s), Tablet(s), 3, 3, Route to Pharmacy Electronically, [id number], [id number], 178, cm, 09/22/2022 2335, Height, 93.7, kg, 09/26/2022 0507, Weight Start Date: 10/18/22 Stop Date: 10/13/23 Status: Ordered fexofenadine 180 mg oral tablet 180 mg, 1 tablet(s), Oral, daily, 30 tablet(s), Tablet(s), 0 Start Date: 11/08/17 Status: Ordered Flomax 0.4 mg oral capsule 0.4 mg, 1 capsule(s), Oral, pm after dinner, 90 capsule(s), Capsule(s), 3, 3, Route to Pharmacy Electronically, [facility], [id number], 172.72, cm, 11/06/2022 1120,Height, 89.09, kg, 11/06/2022 1120, Weight Start Date: 11/09/22 Stop Date: 11/04/23 Status: Ordered Keflex 250 mg oral capsule 250 mg, 1 capsule(s), Oral, qhs, 0 Start Date: 09/26/22 Status: Ordered Lasix 40 mg oral tablet 40 mg, 1 tablet(s), Oral, daily, 90 tablet(s), Tablet(s), 3, 3, Route to Pharmacy Electronically, [facility], [id number], 178, cm, 09/22/2022 2335, Height, 93.7, k g, 09/26/2022 0507, Weight Start Date: 10/18/22 Stop Date: 10/13/23 Status: Ordered Metoprolol Tartrate 50 mg oral tablet 50 mg, 1 tablet(s), Oral, bid, 180 tablet(s), Tablet(s), 3, 3, Route to Pharmacy Electronically, [facility], [id number], 178, cm, 09/22/2022 2335, Height, 93.7, kg, 09/26/2022 0507, Weight Start Date: 10/18/22 Stop Date: 10/13/23 Status: Ordered Multivitamin oral tablet 1 tablet(s), Oral, daily, 30 tablet(s), 0 Start Date: 11/12/12 Status: Ordered omeprazole 20 mg oral delayed release capsule 1 capsule(s), Oral, daily, 90 capsule(s), 3, Route to Pharmacy Electronically, [email or web address], [id number], 178, cm, 09/22/2022 2335, Height, 93.7, kg, 09/26/2022 0507, Weight Start Date: 10/01/22 Status: Ordered Potassium Chloride (Eqv-K-Tab) 10 mEq oral tablet, extended release 10 mEq, 1 tablet(s), Oral, bid, 180 tablet(s), 3, 3, [facility] to [facility]acy Electronically, [facility], [id number], 172.72, cm, 11/06/2022 1120, Height, 89.09, kg, 11/06/2022 1120, Weight Start Date: 11/09/22 Stop Date: 11/04/23 Status: Ordered prochlorperazine 10 mg oral tablet 10 mg, 1 tablet(s), Oral, [id number], PRN, 30 each, Tablet(s), 1, 1, nausea, Route to Pharmacy Electronically, [facility], [id number], 172.72, cm, 11/06/2022 1120, Height, 89.09, kg, 11/06/2022 1120, Weight Start Date: 11/06/22 Stop Date: 01/05/23 Status: Ordered rosuvastatin 20 mg oral tablet 1 tablet(s), Oral, HS, 90 tablet(s), 3, Route to Pharmacy Electronically, [email or web address], [id number], 175.26, cm, 04/26/2022 0917, Height, 97.7, kg, 04/26/2022 0917, Weight Start Date: 05/29/22 Status: Ordered Problem List Condition Confirmation Course Effective Dates Status H ealth Status Informant Asthma Confirmed Active Asthma-COPD overlap syndrome Confirmed Active ASHD (arteriosclerotic heart disease) I25.10 Confirmed Active COPD (chronic obstructive pulmonary disease) Confirmed Active Acute exacerbation of chronic obstructive airways disease J44.1 Confirmed Active COPD (chronic obstructive pulmonary disease) J44.9 Confirmed Active 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 HTN (hypertension) I10 Confirmed Active Acid reflux disease Confirmed Active Gout Confirmed Active Ground glass opacity present on imaging of lung Confirmed Active History of pulmonary hypertension Confirmed Active History of lung cancer Confirmed Active High cholesterol Confirmed Active Hyperplasia of prostate Confirmed Active High blood pressure Confirmed Active Kidney stone Confirmed Active Cataract Confirmed Active Lesion of lung Confirmed Active Restrictive ventilatory defect Confirmed Active Nocturia 1 Confirmed Active Bulging lumbar disc Confirmed Active Pulmonary HTN Confirmed Active Elevated cholesterol E78.00 Confirmed Active Asthma J45.909 Confirmed Active Urinary incontinence Confirmed Active 1frequency Procedures Procedure Date Related Diagnosis Body Site Status 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 Completed CE - Cataract extraction Completed Hip arthroplasty 2 Comple chiara lumbar back surg 04/2010 C ompleted Prostate implantation Com pleted 30725 2left Social History Social History Type Response Alcohol Current some day alc ohol user, Wine Substance Abuse Never drug user Smoking Status Former smoker;Never; Tobacco Cessation Counseling Requested N/A; Type: Cigarettes; Stopped at age: 55; entered on: 07/25/22 Sex Goals Prevent Readmission Through Ongoing Care Managem ent Start Date:09/28/22 End Date: Status:Met Progression:Met Exacerbations and Complications of COPD Avoided Start Date:09/28/22 End Date: Status:Met Progression:Met Follows Action Plan Appropri ately, Worse or Warning Symptoms Start Date:09/28/22 End Date: Status:Met Progression:Met US Heart * Event Display: Echocardiogram Report * Event Display: Echocardiogram Complete Study * Event Display: Echocardiogram Complete Study Authored Date: [id number] [facility] CARDIOLOGY SERVICES [address] [place] [address]. [place] [address] Transthoracic Echocardiogram Patient Name: BAM SMALL D : 1935 Study Date: 02/11/2023 9:28:05 AM Gender: M Platform Loader: AALocation: [facility]- Ref.Provider: LUIS FERNANDO LEBRON Height(Cm): 178 BSA: 2.08 Weight(Kg): 87.1 Quality: Good Order Provider: LUIS FERNANDO LEBRON PROCEDURES: Echocardiographic Report: Transthoracic echocardiogram with complete 2D, M-Mode, color and Doppler examination. INDICATIONS: CHF I50.9. Measurements: 2D/M Mode Doppler Measurement Value Normal Range Measurement Value Normal Range LVIDd 2D 5.0 [ 3.9 - 5.7 ] cm LVOT Peak [place] 93.5 [ 80.0 - 150.0 ] cm/s LVIDs 2D 4.5 [ 2.0 - 3.8 ] cm LVOT VTI 19.7 [ 20.0 - 30.0 ] cm IVSd Mid 2D 1.1 [ 0.6 - 1.0 ] cm LVOT Diam 2D 2.0 [ 1.4 - 2.6 ] cm LVPWd 2D 1.1 [ 0.6 - 1.0 ] cm LVOT SVI 31.10 [ 35.00 - 70.00 ] mL/m2 LV Mass 207 g AV Peak Milton 100.4 cm/s LV Mass Index 100 [ 49 - 115 ] g/m2 AV Peak PG 4.0 mmHg RWT 0.44 AV Mean PG 2.4 mmHg EDV 2D 93 [ 60 - 145 ] cm3 AV VTI 21.6 cm LV Diastolic Volume Index 45 [ 34 - 74 ] Aortic Valve Area (VTI) 2.87 cm2 ESV 2D 62 [ 20 - 60 ] cm3 AV DV Index (Velocity) 0.93 [ >= 0.50 ] EF Mod BP 34 [ 50 - 74 ] % AV DVTI Index (VTI) 0.91 [ >= 0.50 ] FS 2D 11 [ 25 - 47 ] % MV E Peak [place] 52.5 [ 70.0 - 120.0 ] cm/s LA Volume Index 2D 43 [ 20 - 34 ] cc/m2 MV A Peak [place] 91.0 cm/s RVDd 2D 3.5 cm MV E/A 0.6 RA Area 2D 13 [ 8 - 20 ] cm2 MV Decel Time 367.0 [ 180.0 - 240.0 ] msec IVC Diameter 2D 1.5 [ 1.1 - 2.1 ] cm PV Peak [place] 101.0 [ 80.0 - 150.0 ] cm/s LVOT Diam 2D 2.0 [ 1.4 - 2.6 ] cm PV Peak PG 4.1 mmHg Sinus V 2D 3.3 cm TR Peak Milton 222.3 [ 150.0 - 270.0 ] cm/s Asc AoR 2D 3.3 [ 2.0 - 3.7 ] cm TR Peak PG 19.8 [ 20.0 - 32.0 ] mmHg Tricuspid S` 5.0 [ 10.0 - 25.0 ] cm/s Lateral E` 8 cm/s Medial E` 6 cm/s Average E` 7.00 cm/s E/E` 7.50 [ <= 14.00 ] Measurement Value Normal Range Measurement Value Normal Range 2D/M Mode Doppler - FINDINGS: Left Ventricle: Normal left ventricular cavity size. Moderately depressed left ventricular systolic function. The left ventricular ejection fraction is measured by Bailey's biplane method at 34 %. Impaired LV relaxation with normal LA pressure (grade I diastolic dysfunction). Right Ventricle: Normal right ventricular size. Normal right ventricular systolic function. Left Atrium: Moderately dilated left atrium. Right Atrium: The right atrium is normal in size. Atrial Septum: Cannot rule out small ASD seen with color Doppler (seq 44); recommend correlation with prior studies. Mitral Valve: Mild mitral annular calcification. Trace mitral regurgitation. No mitral stenosis. Aortic Valve: Trileaflet aortic valve. Aortic cusps appear mildly calcified. No hemodynamically significant aortic stenosis by Doppler. No aortic regurgitation. Tricuspid Valve: There is mild tricuspid regurgitation. The estimated Peak RVSP is 23 mmHg. Pulmonic Valve: No pulmonic stenosis. There is mild pulmonic regurgitation. Pericardium: Normal pericardium with no significant pericardial effusion. Aorta: Normal aortic root. Normal ascending aorta size. IVC: Normal inferior vena cava appearance and respiratory collapse. Pulmonary Artery: Pulmonary artery is not well visualized. Rhythm: The rhythm during the study was sinus bradycardia. Prior Comparison: Compared with prior study of 11/28/2022, measured EF has increased from 24% to 34%. Mitral annular calcification does not appear as severe in this study; able to determine mild diastolic function. CONCLUSIONS: 1. Normal left ventricular cavity size. Moderately depressed left ventricular systolic function. The left ventricular ejection fraction is measured by Bailey's biplane method at 34 %. Impaired LV relaxation with normal LA pressure (grade I diastolic dysfunction). 2. Normal right ventricular size. Normal right ventricular systolic function. 3. Moderately dilated left atrium. 4. There is mild tricuspid regurgitation. The estimated Peak RVSP is 23 mmHg. 5. Compared with prior study of 11/28/2022, measured EF has increased from 24% to 34%. Mitral annular calcification does not appear as severe in this study; able to determine mild diastolic function. Electronically Signed By: Velia Moore MD 2023-02-11 11:30:45 CDT CC: CC: Note * Event Display: Authorization to Treat Authored Date: * Event Display: Authorization to Treat Authored Date: * [facility] [employer]: PERFORM Event Display: ROI_Correspondence Authored Date: * Event Display: ROI_Correspondence * Event Display: ROI_Correspondence * Event Display: ROI_Correspondence * Event Display: ROI_Correspondence Authored Date: * Event Display: ROI_Correspondence Authored Date: Patient Care team information Care Team Personnel Name: Abena Saldaña RN Lung Screening Coordinator Position: Population Health Coordinator Member Role: Population Health Coordinator Name: Jeremie Mujica M.D. Position: Physician - Cardiology Member Role: Undercutter Heart Failure Address: Address: [address] [place] [phone] [place] Name: Mindi Ma Cap Maker Position: Population Health Coordinator Member Role: Population Health Coordinator Name: Garland Haywood MD Position: Physician - Electrophysiology Member Role: Specialist Physician Address: Address: [address] [place] [address] [place] [address] Name: Luis Fernando Lebron M.D. Position: Physician - Cardiology Member Role: Primary Care Physician Address: Address: [address] [place] [address] [place] [address]- Name: Laila Burch RN Outpatient Manufacturing Worker Position: OP Manufacturing Worker Jet Dyeing Machine Tender Member Role: Manufacturing Worker Name: Luis Fernando Lebron M.D. Position: Physician - Cardiology Med Service: Primary Substance Abuse Counselor Epic Specialist Role: Referring Physician Address: Address: [address] [place] [address] [place] [address]- Care Team Related Persons Name: BRANDY SMALL Address: home [address] [id number]
--- OUTSIDE RECORDS SUMMARY | 2024-11-05 00:08 | XMS_ITS | Continuity of Care Document ---
Author Organization [facility] Address [address] [place] [phone] Care Team Providers Care Graphic Design Teacher Name Role Phone Luis Fernando Vo Primary Care Physician Encounter [facility] Financial Number [id number] Date(s): 01/24/22 - 01/24/[address] [id number] Discharge Disposition: Home or Self Care Attending Physician: Luis Fernando Vo M.D. Referring Physician: Luis Fernando Vo M.D. Allergies, Adverse Reactions, Alerts No Known Allergies Assessment and Plan Future Appointments Appointment Date:04/26/2022 09:30:00 AM Scheduled Provider:Luis Fernando Vo M.D. Location:[facility] 370N Appointment Type:ZANA GOMES Established Patient Extended Appointment Date:07/25/2022 11:30:00 AM Scheduled Provider:Susan Montiel MD Location:[facility] 310N Appointment Type:ZANA GRIGGS Established Patient Immunizations Given and Recorded Vaccine Date Status Refusal Reason influenza virus vaccine, inactivated 08/29/18 Graham rded influenza virus vaccine, H1N1, inactivat 07/15/17 Recorded pneumococcal 13-valent vaccine 10/14/14 Recorded Medications Advair Diskus 250 mcg-50 mcg inhalation powder 1 puff(s), Inhalation, bid, 180 each, 10, 90, Route to Pharmacy Electronically, [facility], [id number], 175, cm, 11/13/2021 1717, Height, 86.3, kg, 11/13/2021 1717, Weight Start Date: 01/22/22 Status: Ordered albuterol 90 mcg/inh inhaler 2 puff(s), Inhalation, p0dxqma, PRN, 1 each, Inhaler, 3, 3, shortness of breath, Route to Pharmacy Electronically, [id number], [id number] Start Date: 05/31/20 Stop Date: 09/28/20 Status: Ordered Aleve Caplet 220 mg oral tablet 1 tablet(s), Oral, a1hlkor, PRN, 30 tablet(s), Tablet(s), 0, headache Start Date: 11/08/17 Status: Ordered allopurinol 100 mg oral tablet 1 tablet(s), Oral, daily, 90 tablet(s), 3, 0, FOR GOUT PREVENTION., [facility]ically, [facility], [id number], 175, cm, 05/30/2021 0910, Height, 92.7, kg,05/30/2021 0910, Weight Start Date: 07/19/21 Status: Ordered aspirin 81 mg oral enteric coated tablet 81 mg, 1 tablet(s), Oral, daily, Tab EC, 0 Start Date: 11/08/17 Status: Ordered Azithromycin 5 Day Dose Pack 250 mg oral tablet 1 packet(s), Oral, daily, 5 day(s), 6 tablet(s), Packet, 0, 0, 01/29/2022 1315, as directed on package labeling, Route to Pharm[facility] Electronically, [facility], [id number], 175.26, cm, 01/24/2022 1301, Height, 97.7, kg... Start Date: 01/24/22 Stop Date: 01/29/22 Status: Ordered cephalexin 250 mg oral capsule 250 mg, 1 capsule(s), qhs, 0 Start Date: 01/24/22 Status: Ordered fexofenadine 180 mg oral tablet 180 mg, 1 tablet(s), Oral, daily, 30 tablet(s), Tablet(s), 0 Start Date: 11/08/17 Status: Ordered Flomax 0.4 mg oral capsule 0.4 mg, 1 capsule(s), Oral, pm after dinner, 90 capsule(s), Capsule(s), 0 Start Date: 04/10/19 Status: Ordered hydroCHLOROthiazide 25 mg oral tablet 1 tablet(s), Oral, qam, 90 tablet(s), 3, Route [facility], [facility], [id number], 175, cm, 11/13/2021 1717, Height, 86.3, kg, 11/13/2021 1717, Weight Start Date: 01/18/22 Status: Ordered Multivitamin oral tablet 1 tablet(s), Oral, daily, 30 tablet(s), 0 Start Date: 11/12/12 Status: Ordered omeprazole 20 mg oral delayed release capsule 1 capsule(s), Oral, daily, 90 capsule(s), 3, 0, Route to [facility] Electronically, [facility], [id number], 175, cm, 05/30/2021 0910, Height, 92.7, kg, 05/30/2021 0910, Weight Start Date: 09/25/21 Status: Ordered predniSONE 10 mg oral tablet Taper from 40 mg q3day by 10 mg till off, Oral, daily, 30 tablet(s), 0, 0, Route [facility] Pharm[facility] Electronically, [facility], [id number], 175.26, cm, 01/24/2022 1301, Height, 97.7, kg, 01/24/2022 1301, Weight Start Date: 01/24/22 Stop Date: 02/05/22 Status: Ordered rosuvastatin 20 mg oral tablet 20 mg, 1 tablet(s), Oral, qhs, 90 tablet(s), Tablet(s), 3, 3, Route to [facility] Electronically, [facility], [id number], 175, cm, 05/17/2021 1142, Height, 89.5, kg, 05/17/2021 1142, Weight Start Date: 05/22/21 Status: Ordered Problem List Condition Effective Dates Status Health Status Inform ant Asthma(Confirmed) Active ASHD (arteriosclerotic heart disease) I25.10(Confirmed) Active COPD (chronic obstructive pu lmonary disease)(Confirmed) Active Acute exacerbation of chroni c obstructive airways disease J44.1(Confirmed) Active COPD (chronic obstructive pu lmonary disease) J44.9(Confirmed) Active Coronary arteriosclerosis in [place] artery(Confirmed) Active HTN (hypertension) I10(Confirmed) Active Acid reflux disease(Confirmed) Active Gout(Confirmed) Active H/O: lung cancer(Confirmed) Active High cholesterol(Confirmed) Active Hyperplasia of prostate(Confirmed) Active High blood pressure(Confirmed) Active Kidney stone(Confirmed) Active Cataract(Confirmed) Active Lesion of lung(Confirmed) Active Nocturia(Confirmed) 1 Active Bulging lumbar disc(Confirmed) Active Elevated cholesterol E78.00(Confirmed) Active Asthma J45.909(Confirmed) Active Urinary incontinence(Confirmed) Active 1frequency Diagnosis Diagnosis Type Effective Dates Health Status Clinical Service Informant Pure hypercholesterolemia, unspecified 01/24/22 Non-Specified Chronic obstructive pulmonary disease, unspecified 01/24/22 Non-Specified Atherosclerotic heart disease of [place] coronary artery without angina pectoris 01/24/22 Non-Specified Chronic obstructive pulmonary disease, unspecified 01/24/22 Non-Specified Atherosclerotic heart disease of [place] coronary artery without angina pectoris 01/24/22 Non-Specified Pure hypercholesterolemia, unspecified 01/24/22 Non-Specified Pure hypercholesterolemia, unspecified 01/24/22 Non-Specified Atherosclerotic heart disease of [place] coronary artery without angina pectoris 01/24/22 Non-Specified Chronic obstructive pulmonary disease, unspecified 01/24/22 Non-Specified Chronic obstructive pulmonary disease, unspecified 01/24/22 Non-Specified Atherosclerotic heart disease of [place] coronary artery without angina pectoris 01/24/22 Non-Specified Pure hypercholesterolemia, unspecified 01/24/22 Non-Specified Essential (primary) hypertension 01/24/22 Non-Specified Chronic obstructive pulmonary disease, unspecified 01/24/22 Non-Specified Atherosclerotic heart disease of [place] coronary artery without angina pectoris 01/24/22 Non-Specified Pure hypercholesterolemia, unspecified 01/24/22 Non-Specified Procedures Procedure Date Related Diagnosis Body Site Status 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 Completed CE - Cataract extraction Completed Hip arthroplasty 2 Comple chiara lumbar back surg 04/2010 C ompleted Prostate implantation Com pleted [id number] 2left Results Laboratory List Name Date Urinalysis & Microscopic 01/24/22 CBC with Differential 01/24/22 Comprehensive Metabolic Profile 01/24/22 Differential, Automated 01/24/22 Lipid Panel 01/24/22 TSH (Highly Sensitive) 01/24/22 Most recent to oldest [Reference Range]: 1 Albumin [3.5-5.0 g/dL] 4.2 g/dL (01/24/22 10:06 AM) Alk Phos [38-126 U/L] 130 U/L *H* (01/24/22 10:06 AM) BUN [9-20 mg/dL] 34 mg/dL *H* (01/24/22 10:06 AM) Calcium [8.4-10.2 mg/dL] 9.9 mg/dL (01/24/22 10:06 AM) Chloride [98-107 mmol/L] 100 mmol/L (01/24/22 10:06 AM) Cholesterol [<=199 mg/dL] 144 mg/dL (01/24/22 10:06 AM) CO2 [22-30 mmol/L] 29 mmol/L (01/24/22 10:06 AM) Glucose [74-106 mg/dL] 86 mg/dL (01/24/22 10:06 AM) Direct HDL [>=41 mg/dL] 59 mg/dL (01/24/22 10:06 AM) Potassium [3.5-4.9 mmol/L] 3.5 mmol/L (01/24/22 10:06 AM) Sodium [137-145 mmol/L] 138 mmol/L (01/24/22 10:06 AM) Protein, Total [6.5-8.6 g/dL] 7.2 g/dL (01/24/22 10:06 AM) Triglyceride [<=149 mg/dL] 115 mg/dL (01/24/22 10:06 AM) TSH, Highly Sensitive [0.47-4.68 uIU/mL] 2.19 uIU/mL (01/24/22 10:06 AM) Baso # [0.0-0.2 K/uL] 0.1 K/uL (01/24/22 10:06 AM) Eos # [0.0-0.7 K/uL] 0.2 K/uL (01/24/22 10:06 AM) Hematocrit [40.0-48.0 %] 52.2 % *H* (01/24/22 10:06 AM) Lymph % 24 % (01/24/22 10:06 AM) Lymph # [0.7-4.5 K/uL] 2.4 K/uL (01/24/22 10:06 AM) MCHC [31.5-35.5 g/dL] 33.3 g/dL (01/24/22 10:06 AM) MCH [27.2-32.6 pg] 30.0 pg (01/24/22 10:06 AM) MCV [82.0-99.0 fL] 90.0 fL (01/24/22 10:06 AM) Dixie # [0.1-1.3 K/uL] 0.9 K/uL (01/24/22 10:06 AM) MPV [9.3-12.4 fL] 10.8 fL (01/24/22 10:06 AM) Neutro # [1.9-7.0 K/uL] 6.8 K/uL (01/24/22 10:06 AM) Platelet [140-350 K/uL] 214 K/uL (01/24/22 10:06 AM) RBC [4.50-5.40 M/uL] 5.80 M/uL *H* (01/24/22 10:06 AM) RDW [11.5-14.5 %] 13.1 % (01/24/22 10:06 AM) WBC [4.3-10.0 K/uL] 10.4 K/uL *H* (01/24/22 10:06 AM) Neutro % 65 % (01/24/22 10:06 AM) Dixie % 8 % (01/24/22 10:06 AM) Eos % 2 % (01/24/22 10:06 AM) Baso % 1 % (01/24/22 10:06 AM) Nucleated RBCs [0-0 %] 0 % (01/24/22 10:06 AM) UA Blood [Negative] 2+ *(A)* (01/24/22 10:16 AM) UA WBC [<3 /hpf] 51-100 /hpf *(A)* (01/24/22 10:16 AM) UA RBC [<3 /hpf] 26-50 /hpf *(A)* (01/24/22 10:16 AM) AST [17-59 U/L] 27 U/L (01/24/22 10:06 AM) Bilirubin, Total [0.2-1.3 mg/dL] 0.6 mg/ dL (01/24/22 10:06 AM) LDL (Calc) [<=99 mg/dL] 62 mg/dL (01/24/22 10:06 AM) Creatinine [0.7-1.3 mg/dL] 1.5 mg/dL *H* (01/24/22 10:06 AM) Patient Fasting? Yes (01/24/22 10:06 AM) Hemoglobin [13.6-16.5 g/dL] 17.4 g/dL *H* (01/24/22 10:06 AM) eGFR(4vMDRD) [>=60 mL/min/1.73m2] 46 mL/ min/1.73m2 *L* (01/24/22 10:06 AM) eCrCl(C-Gault) 0.5 mL/min/kg (01/24/22 10:06 AM) Immature Gran % [0.0-0.5 %] 0.7 % *H* (01/24/22 10:06 AM) Squamous Epithelial Cells [None seen /hp f] Occasional /hpf *(A)* (01/24/22 10:16 AM) Transitional Epithelial Cells [None seen /hpf] Few /hpf *(A)* (01/24/22 10:16 AM) Hyaline Cast [None seen /lpf] 3-5 /lpf *(A)* (01/24/22 10:16 AM) UA Bacteria [None seen /hpf] Moderate /h pf *(A)* (01/24/22 10:16 AM) UA Bilirubin [Negative] Negative (01/24/22 10:16 AM) UA Clarity [Clear] Hazy *(A)* (01/24/22 10:16 AM) UA Color [Straw] Yellow (01/24/22 10:16 AM) Differential Type Automated (01/24/22 10:06 AM) UA Glucose (Qual) [Negative] Negative (01/24/22 10:16 AM) UA Ketones [Negative] Negative (01/24/22 10:16 AM) UA Leukocyte Esterase [Negative] 2+ *(A)* (01/24/22 10:16 AM) UA Mucus [None seen /lpf] Trace /lpf *(A)* (01/24/22 10:16 AM) UA Nitrite [Negative] Negative (01/24/22 10:16 AM) UA Specific [place] [1.005-1.030] 1.024 (01/24/22 10:16 AM) UA pH [5.0-8.0] 5.5 (01/24/22 10:16 AM) UA Protein (Qual) [Negative] 1+ *(A)* (01/24/22 10:16 AM) UA Urobilinogen [Negative] Negative (01/24/22 10:16 AM) Anion Gap [7-16 mmol/L] 9 mmol/L (01/24/22 10:06 AM) ALT [<=50 U/L] 21 U/L (01/24/22 10:06 AM) Social History Social History Type Response Alcohol Current every day al cohol user, Liquor, Daily, 1 drink Substance Abuse Never drug user Smoking Status Former smoker;Never; Tobacco Cessation Counseling Requested N/A; Type: Cigarettes; Stopped at age: 55; entered on: 05/17/21 Sex Care Team Personnel Name: Luis Fernando Vo M.D. Address: [address] [place], [place] [address]-
--- OUTSIDE RECORDS SUMMARY | 2024-11-05 00:08 | XMS_ITS | Continuity of Care Document ---
Author Organization [facility] Address [address] [place] [phone] Care Team Providers Care Youtuber Name Role Phone Luis Fernando Lebron Primary Care Physician Garland Haywood [phone] Encounter [facility] Financial Number [id number] Date(s): 11/28/22 - 11/28/[address] [id number] Discharge Disposition: Home or Self Care Attending Physician: Luis Fernando Lebron M.D. Admitting Physician: Luis Fernando Lebron M.D. Referring Physician: Luis Fernando Lebron M.D. Allergies, Adverse Reactions, Alerts No Known Allergies Assessment and Plan Future Appointments Appointment Date:12/10/2022 11:15:00 AM Scheduled Provider:Garland Haywood MD Location:[facility] Appointment Type:SLES EP Established Patient Appointment Date:01/17/2023 11:15:00 AM Scheduled Provider: Location:[facility] CT Appointment Type:CT CHEST Appointment Date:01/17/2023 11:45:00 AM Scheduled Provider:Susan Montiel MD Location:[facility] 310N Appointment Type:CPA EP Established Patient Appointment Date:01/30/2023 11:00:00 AM Scheduled Provider:Luis Fernando Lebron M.D. [facility] Appointment Type:CPA EPE Established Patient Extended Immunizations Given and Recorded Vaccine Date Status [...] each, 10, 90, Route to Pharmacy Electronically, [facility], [id number], 175, cm, 11/13/2021 1717, Height, 86.3, kg, 11/13/2021 1717, Weight Start Date: 01/22/22 Status: Ordered albuterol 90 mcg/inh inhaler 2 puff(s), Inhalation, l4wpfcl, PRN, 1 each, Inhaler, 3, 3, shortness of breath, Slow Breath inhaleslowly and deeply , Route to Pharmacy Electronically, [facility] [address] [facility], [id number], 175, cm, 07/25/2022 1145, Height, 97.... Start Date: 07/25/22 Status: Ordered allopurinol 100 mg oral tablet 1 tablet(s), Oral, daily, 90 tablet(s), 3, FOR GOUT PREVENTION., Route to Pharmacy Electronically, [facility], [id number], 175, cm, 07/25/2022 1145, Height, 97.5, kg, 07/25/2022 1145, Weight Start Date: 08/06/22 Status: Ordered aspirin 81 mg oral enteric coated tablet 81 mg, 1 tablet(s), Oral, daily, Tab EC, 0 Start Date: 11/08/17 Status: Ordered Entresto 49 mg-51 mg oral tablet 1 tablet(s), Oral, bid, 180 tablet(s), Tablet(s), 3, 3, [id number], [id number], 178, cm, 09/22/2022 2335, Height, 93.7, kg, 09/26/2022 0507, Weight Start Date: 10/18/22 Stop Date: 10/13/23 Status: Ordered fexofenadine 180 mg oral tablet 180 mg, 1 tablet(s), Oral, daily, 30 tablet(s), Tablet(s), 0 Start Date: 11/08/17 Status: Ordered Flomax 0.4 mg oral capsule 0.4 mg, 1 capsule(s), Oral, pm after dinner, 90 capsule(s), Capsule(s), 3, 3, Route [facility] Pharm[facility] Electron[facility], [facility], [id number], 172.72, cm, 11/06/2022 1120,Height, 89.09, kg, 11/06/2022 1120, Weight Start Date: 11/09/22 Stop Date: 11/04/23 Status: Ordered Keflex 250 mg oral capsule 250 mg, 1 capsule(s), Oral, qhs, 0 Start Date: 09/26/22 Status: Ordered Lasix 40 mg oral tablet 40 mg, 1 tablet(s), Oral, daily, 90 tablet(s), Tablet(s), 3, 3, Route [facility] Pharm[facility], [facility], [id number], 178, cm, 09/22/2022 2335, Height, 93.7, k g, 09/26/2022 0507, Weight Start Date: 10/18/22 Stop Date: 10/13/23 Status: Ordered Metoprolol Tartrate 50 mg oral tablet 50 mg, 1 tablet(s), Oral, bid, 180 tablet(s), Tablet(s), 3, 3, Route to Pharmacy Electronically, [facility], [id number], 178, cm, 09/22/2022 2335, Height, 93.7, kg, 09/26/2022 0507, Weight Start Date: 10/18/22 Stop Date: 10/13/23 Status: Ordered Multivitamin oral tablet 1 tablet(s), Oral, daily, 30 tablet(s), 0 Start Date: 11/12/12 Status: Ordered omeprazole 20 mg oral delayed release capsule 1 capsule(s), Oral, daily, 90 capsule(s), 3, Route to Pharmacy Electronically, [facility] [address], [id number], 178, cm, 09/22/2022 2335, Height, 93.7, kg, 09/26/2022 0507, Weight Start Date: 10/01/22 Status: Ordered Potassium Chloride (Eqv-K-Tab) 10 mEq oral tablet, extended release 10 mEq, 1 tablet(s), Oral, bid, 180 tablet(s), 3, 3, Route to Pharmacy Electronically, [facility] [address], [id number], 172.72, cm, 11/06/2022 1120, Height, 89.09, kg, 11/06/2022 1120, Weight Start Date: 11/09/22 Stop Date: 11/04/23 Status: Ordered predniSONE 10 mg oral tablet Taper from 30 mg q3day by 10 mg till off, Oral, daily, 18 tablet(s), 0, 0, Route to Pharmacy Electronically, [facility], [id number], 178, cm, 09/22/2022 2335, Height, 93.7, kg, 09/26/2022 0507, Weight Start Date: 09/26/22 Stop Date: 10/05/22 Status: Ordered prochlorperazine 10 mg oral tablet 10 mg, 1 tablet(s), Oral, f7qvdzw, PRN, 30 each, Tablet(s), 1, 1, nausea, Route to Pharmacy Electronically, [facility] [address] [facility], [id number], 172.72, cm, 11/06/2022 1120, Height, 89.09, kg, 11/06/2022 1120, Weight Start Date: 11/06/22 Stop Date: 01/05/23 Status: Ordered rosuvastatin 20 mg oral tablet 1 tablet(s), Oral, HS, 90 tablet(s), 3, Route to Pharmacy Electronically, [facility], [id number], 175.26, cm, 04/26/2022 0917, Height, 97.7, kg, [...] disease) J44.9 Confirmed Active Coronary arteriosclerosis in [place] artery Confirmed Active HTN (hypertension) I10 Confirmed Active Acid reflux disease Confirmed Active Gout Confirmed Active Ground glass opacity present on imaging of lung Confirmed Active History of lung cancer Confirmed [...] 04/2010 C ompleted Prostate implantation Com pleted [id number] 2left Social History Social History Type Response [...] Event Display: Echocardiogram Complete Study Authored Date: [facility]ARD[facility]OLOGY [facility] [address] [place] [address] Transthoracic Echocardiogram Patient Name: BAM SMALL D : 1935 Study Date: 11/28/2022 10:52:42 AM Gender: M [employer] Hand: AGLocation: [facility]- Ref.Provider: LUIS FERNANDO LEBRON Height(Cm): 178 BSA: 2.07 Weight(Kg): 86.6 BP: 111/61Quality: Good Order Provider: LUIS FERNANDO LEBRON PROCEDURES: Echocardiographic Report: Transthoracic echocardiogram with complete 2D, M-Mode, color and Doppler examination. INDICATIONS: CHF I50.9. Measurements: 2D/M Mode Doppler Measurement Value Normal Range Measurement Value Normal Range LVIDd 2D 5.4 [ 3.9 - 5.7 ] cm LVOT Peak [place] 73.5 [ 80.0 - 150.0 ] cm/s LVIDs 2D 4.9 [ 2.0 - 3.8 ] cm LVOT VTI 15.2 [ 20.0 - 30.0 ] cm IVSd Mid 2D 0.8 [ 0.6 - 1.0 ] cm LVOT Diam 2D 2.2 [ 1.4 - 2.6 ] cm LVPWd 2D 0.8 [ 0.6 - 1.0 ] cm LVOT SVI 26.94 [ 35.00 - 70.00 ] mL/m2 LV Mass 155 g AV Peak [place] 99.9 cm/s LV Mass Index 75 [ 49 - 115 ] g/m2 AV Peak PG 4.0 mmHg RWT 0.30 AV Mean PG 2.1 mmHg EDV 2D 177 [ 60 - 145 ] cm3 AV VTI 20.9 cm LV Diastolic Volume Index 86 [ 34 - 74 ] Aortic Valve Area (VTI) 2.76 cm2 ESV 2D 135 [ 20 - 60 ] cm3 AV DV Index (Velocity) 0.74 [ >= 0.50 ] EF Mod BP 24 [ 50 - 74 ] % AV DVTI Index (VTI) 0.73 [ >= 0.50 ] FS 2D 9 [ 25 - 47 ] % MV E Peak [place] 45.8 [ 70.0 - 120.0 ] cm/s LA Volume Index 2D 37 [ 20 - 34 ] cc/m2 MV A Peak [place] 98.4 cm/s RVDd 2D 4.6 cm MV E/A 0.5 TAPSE 1.2 [ 1.6 - 2.3 ] cm MV Decel Time 302.1 [ 180.0 - 240.0 ] msec RA Area 2D 13 [ 8 - 20 ] cm2 PV Peak [place] 80.9 [ 80.0 - 150.0 ] cm/s IVC Diameter 2D 1.4 [ 1.1 - 2.1 ] cm PV Peak PG 2.6 mmHg LVOT Diam 2D 2.2 [ 1.4 - 2.6 ] cm TR Peak [place] 223.8 [ 150.0 - 270.0 ] cm/s Sinus V 2D 3.5 cm TR Peak PG 20.1 [ 20.0 - 32.0 ] mmHg Asc AoR 2D 3.6 [ 2.0 - 3.7 ] cm RVSP 25.0 mmHg Tricuspid S` 5.4 [ 10.0 - 25.0 ] cm/s Lateral E` 6 cm/s Medial E` 4 cm/s Average E` 5.00 cm/s E/E` 9.16 [ <= 14.00 ] Measurement Value Normal Range Measurement Value Normal Range 2D/M Mode Doppler - FINDINGS: Left Ventricle: Normal left ventricular cavity size. Severely depressed left ventricular systolic function. Left ventricular dysfunction is global. The left ventricular ejection fraction is measured by Bailey's biplane method at 24 %. Indeterminate diastolic function due to severe mitral annular calcification. Right Ventricle: Mildly dilated right ventricle. Moderate right ventricular hypokinesis. Left Atrium: Mildly dilated left atrium. Right Atrium: The right atrium is normal in size. Atrial Septum: Normal atrial septum. Mitral Valve: Normal appearance and function of the mitral valve with trace physiologic regurgitation. Severe mitral annular calcification. Aortic Valve: No significant aortic stenosis or insufficiency. Trileaflet but asymmetric aortic valve. Tricuspid Valve: Normal appearance and function of the tricuspid valve with trace physiologic regurgitation. Normal right ventricular systolic pressure. The estimated Peak RVSP is 25 mmHg. Pulmonic Valve: Normal pulmonic valve appearance and function with trace (physiologic) regurgitation. Pericardium: Normal pericardium with no significant pericardial effusion. Aorta: Normal aortic root. Normal ascending aorta size. Normal aortic arch. IVC: Normal inferior vena cava appearance and respiratory collapse. Pulmonary Artery: Normal pulmonary artery size. Rhythm: The rhythm during the study was normal sinus rhythm. Prior Comparison: Compared with prior study of 09/24/2022, left atrial size has decreased. CONCLUSIONS: 1. Normal left ventricular cavity size. Severely depressed left ventricular systolic function. Left ventricular dysfunction is global. The left ventricular ejection fraction is measured by Bailey's biplane method at 24 %. Indeterminate diastolic function due to severe mitral annular calcification. 2. Mildly dilated right ventricle. Moderate right ventricular hypokinesis. 3. Mildly dilated left atrium. 4. Normal appearance and function of the mitral valve with trace physiologic regurgitation. Severe mitral annular calcification. 5. No significant aortic stenosis or insufficiency. Trileaflet but asymmetric aortic valve. 6. Compared with prior study of 09/24/2022, left atrial size has decreased. Electronically Signed By: Jeremie Mujica MD [facility] 2022-11-28 12:17:06 PECAN PICKER CC: CC: Note * Event Display: Authorization to Treat Authored Date: [id number] * Event Display: Authorization to Treat Authored Date: [id number] * [facility] [employer]eder: PERFORM Event Display: ROI_Correspondence Authored Date: [id number] * Event Display: ROI_Correspondence * Event Display: ROI_Correspondence * Event Display: ROI_Correspondence * Event Display: ROI_Correspondence Authored Date: [id number] * Event Display: ROI_Correspondence Authored Date: [id number] Patient Care team information Care Team Personnel Name: Abena Saldaña RN Lung Screening Coordinator Position: Population Health Coordinator Member Role: Population Health Coordinator Name: Mindi Ma Industrial Gas Service Helper Position: Population Health Coordinator Member Role: Population Health Coordinator Name: Garland Haywood MD Position: Physician - Electrophysiology Member Role: Specialist Physician Address: Address: [address] [place] [address] [address] [place] [id number] [place] Name: Luis Fernando Lebron M.D. Position: Physician - Cardiology Member Role: Primary Care Physician Address: Address: [address] [place], [place] [address]- Name: Laila Burch RN Outpatient Unit Educator Position: OP Unit Educator Quality Systems Technician Member Role: Unit Educator Name: Luis Fernando Lebron M.D. Position: Physician - Cardiology Med Service: Skelp Processor Youtuber Role: Referring Physician Address: Address: [address] [place], [place] [address]- Care Team Related Persons Name: BRANDY SMALL Address: home [address], [id number]
--- OUTSIDE RECORDS SUMMARY | 2024-11-05 00:08 | XMS_ITS | Continuity of Care Document ---
Author Organization [facility] [address] Address [address] [facility] [address], [place] [id number] Care Team Providers Care Freelance Operator Name Role Phone Baldev Mccray Primary Care Physician Encounter [facility] Financial Number [id number] Date(s): 07/24/24 - 07/24/24 [facility] [address] [facility] [address], [place] [id number] Discharge Disposition: Home or Self Care Allergies, Adverse Reactions, Alerts No Known Allergies Assessment and Plan Future Appointments Appointment Date:08/10/2024 11:30:00 AM Scheduled Provider: [facility] Appointment Type:Echocardiogram Complete Study Appointment Date:08/10/2024 12:30:00 PM Scheduled Provider:Juan Gu MD Location:[facility] Appointment Type:HCS Follow Up Appointment Date:09/28/2024 11:15:00 AM Scheduled Provider:Susan Montiel MD Location:[facility] Appointment Type:CPA EP Established Patient Appointment Date:01/06/2025 11:15:00 AM Scheduled Provider: [facility] Appointment Type:CT CHEST Appointment Date:01/11/2025 01:00:00 PM Scheduled Provider:Baldev Mccray MD Location:[facility] Appointment Type:[facility] CPE Complete Physical Exam Immunizations Given and Recorded Vaccine Date Status Refusal Reason RSV vaccine preF3, recombinant 08/08/23 Recorded influenza virus vaccine, inactivated 07/30/23 Graham rded influenza virus vaccine, inactivated 08/03/22 Graham rded influenza virus vaccine, inactivated 08/03/22 Graham rded influenza virus vaccine, inactivated 08/29/18 Graham rded SARS-CoV-2 (COVID-19) mRNA-LNP vaccine ( 07/30/23 Recorded SARS-CoV-2 (COVID-19) mRNA BNT-162b2 vax 08/03/22 Recorded influenza virus vaccine, H1N1, inactivat 07/15/17 Recorded pneumococcal 13-valent vaccine 10/14/14 Recorded Medications albuterol 90 mcg/inh inhaler 2 puff(s), Inhalation, [id number], PRN, 1 each, Inhaler, 3, 3, shortness of breath, Slow Breath inhaleslowly and deeply , Route to Pharmacy Electronically, [facility] [address] [facility], [id number], 172.72, cm, 07/31/23 10:20:00 CDT, Height, 86.81, kg, 07/31/23 10:20:00 CDT, Weight Start Date: 11/05/23 Status: Ordered allopurinol 100 mg oral tablet 1 tablet(s), Oral, daily, 90 tablet(s), 1, FOR GOUT PREVENTION., Route to Pharmacy Electronically, [facility], [id number], 177, cm, 06/23/24 10:12:00 CDT, Height, 90.9,kg, 06/23/24 10:12:00 CDT, Weight Start Date: 07/07/24 Status: Ordered aspirin 81 mg oral enteric coated tablet 81 mg, 1 tablet(s), Oral, daily, Tab EC, 0 Start Date: 11/08/17 Status: Ordered dapagliflozin 5 mg oral tablet 5 mg, 1 tablet(s), Oral, daily, 30 tablet(s), Tablet(s), 11, 11, This medication can be used for both Heart Failure and Diabetes, please do not stop or substitute without talking to the prescribing physician., Route to Pharmacy Electronically, [facility] [address] [facility], [id number], 177, cm, 02/03/24 11:23:00 CDT, Height, 91.81, kg, 02/03/24 11:23:00 CDT, Weight Start Date: 02/03/24 Status: Ordered Entresto 49 mg-51 mg oral tablet 1 tablet(s), Oral, bid, 180 tablet(s), 0, Route to Pharmacy Electronically, [facility], [id number], 177, cm, 06/23/24 10:12:00 CDT, Height, 90.9, kg, 06/23/24 10:12:00 CDT, Weight Start Date: 07/07/24 Status: Ordered fexofenadine 180 mg oral tablet 180 mg, 1 tablet(s), Oral, daily, 30 tablet(s), Tablet(s), 0 Start Date: 11/08/17 Status: Ordered Flomax 0.4 mg oral capsule 0.4 mg, 1 capsule(s), Oral, pm after dinner, 90 capsule(s), Capsule(s), 3, 3, Route to Pharmacy Electronically, [facility], [id number], 172.72, cm, 11/06/2022 1120,Height, 89.09, kg, 11/06/2022 1120, Weight Start Date: 11/09/22 Stop Date: 11/04/23 Status: Ordered Keflex 250 mg oral capsule 250 mg, 1 capsule(s), Oral, qhs, 0 Start Date: 09/26/22 Status: Ordered Lasix 20 mg oral tablet 20 mg, 1 tablet(s), Oral, daily, 90 tablet(s), Tablet(s), 3, 3, Route to Pharmacy Electronically, [facility], [id number], 177, cm, 02/03/24 11:23:00 CDT, Height, 9 1.81, kg, 02/03/24 11:23:00 CDT, Weight Start Date: 02/03/24 Status: Ordered Metoprolol Succinate ER 50 mg oral tablet, extended release 50 mg, 1 tablet(s), Oral, daily, 90 tablet(s), Tablet CR, 3, 3, Do Not Route Start Date: 02/03/24 Status: Ordered Multivitamin oral tablet 1 tablet(s), Oral, daily, 30 tablet(s), 0 Start Date: 11/12/12 Status: Ordered omeprazole 20 mg oral delayed release capsule 1 capsule(s), Oral, daily, 90 capsule(s), 3, 3, Route to Pharmacy Electronically, [facility] [address] [facility], [id number], 172.72, cm, 07/31/23 10:20:00 CDT, Height, 86.81, kg, 07/31/23 10:20:00 CDT, Weight Start Date: 10/30/23 Status: Ordered Potassium Chloride (Eqv-K-Tab) 10 mEq oral tablet, extended release 10 mEq, 1 tablet(s), Oral, bid, 180 tablet(s), 3, 3, Route to Pharmacy Electronically, [facility] [address] [facility], [id number], 172.72, cm, 11/06/2022 1120, Height, 89.09, kg, 11/06/2022 1120, Weight Start Date: 11/09/22 Stop Date: 11/04/23 Status: Ordered prochlorperazine 10 mg oral tablet 10 mg, 1 tablet(s), Oral, daily, PRN, 30 tablet(s), Tablet(s), 1, 1, nausea, Route to Pharmacy Electronically, [facility] [address] [facility], [id number], 177, cm, 01/03/24 13:03:00 NUTRITION MANAGER, Height, 91.2, kg, 01/03/24 13:03:00 NUTRITION MANAGER, Weight Start Date: 01/03/24 Stop Date: 03/03/24 Status: Ordered rosuvastatin 20 mg oral tablet 1 tablet(s), Oral, HS, 90 tablet(s), 0, Route to Pharmacy Electronically, [facility] [address], [id number], 177, cm, 02/03/24 11:23:00 CDT, Height, 91.81, kg, 02/03/24 11:23:00 CDT, Weight Start Date: 06/19/24 Status: Ordered Tessalon Perles 100 mg oral capsule 100 mg, 1 capsule(s), Oral, tid, PRN, 30 capsule(s), Capsule(s), 0, 0, cough, Route to Pharmacy Electronically, [facility] [address] [facility], [id number], 177.8, cm, 07/14/24 11:38:00 CDT, Height, 92.3, kg, 07/14/24 11:38:00 CDT, Weight Start Date: 07/20/24 Status: Ordered Trelegy Ellipta 100 mcg-62.5 mcg-25 mcg/inh inhalation powder 1 puff(s), Inhalation, daily, 1 each, Inhaler, 0, 0, Fast Breath inhale quickly and deeply, Route to Pharmacy Electronically, [facility] [address] [facility], [id number], 177.8, cm, 07/14/24 11:38:00 CDT, Height, 92.3, kg, 07/14/24 11:38:00 CDT, Weight Start Date: 07/20/24 Status: Ordered Trelegy Ellipta SAMPLE 200 mcg-62.5 mcg-25 mcg/inh Inhaler 1 puff(s), Inhalation, daily, Fast Breath???inhale quickly and deeply , Medication Sample Given, 1,inhaler Start Date: 07/14/24 Status: Ordered Wixela Inhub 250 mcg-50 mcg inhalation powder 1 puff(s), Inhalation, bid, 180 each, 1, INSTR:FAST BREATH INHALE QUICKLY AND DEEPLY, 90, Route to Pharmacy Electronically, [facility] [address], [id number], 177.8, cm, 07/14/24 11:38:00 CDT, Height, 92.3, kg, 07/14/24 11:38:00 CDT, Weight Start Date: 07/21/24 Status: Ordered Problem List Condition Confirmation Course Effective Dates Status H ealth Status Informant Allergic rhinitis Confirmed Active Asthma-COPD overlap syndrome Confirmed Active ASHD (arteriosclerotic heart disease) I25.10 Confirmed Active BPH (benign prostatic hyperplasia) Confirmed Active Hearing loss of both ears Confirmed Active 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 Active HTN (hypertension) I10 Confirmed Active Acid reflux disease Confirmed Active Gout Confirmed Active Ground glass opacity present on imaging of lung Confirmed Active History of pulmonary hypertension Confirmed Active Hx of gout Confirmed Active Heart failure with reduced ejection fraction Confirmed Active History of lung cancer Confirmed Active High cholesterol Confirmed Active Hyperplasia of prostate Confirmed Active High blood pressure Confirmed Active Ischemic cardiomyopathy Confirmed Active Kidney stone Confirmed Active Cataract Confirmed Active Lesion of lung Confirmed Active Restrictive ventilatory defect Confirmed Active Nausea and vomiting Confirmed Active Nocturia 1 Confirmed Active Bulging lumbar disc Confirmed Active Elevated cholesterol E78.00 Confirmed Active Solitary pulmonary nodule Confirmed Active Urinary incontinence Confirmed Active Need for vaccination Confirmed Active 1frequency Procedures Procedure Date Related Diagnosis Body Site Status 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 Completed CE - Cataract extraction Completed Hip arthroplasty 2 Comple chiara lumbar back surg 04/2010 C ompleted Prostate implantation Com pleted 61591 2left Social History Social History Type Response Alcohol Current every day al cohol user, Liquor, Daily, 1 drink Substance Abuse Never drug user Smoking Status Former smoker;Never; Tobacco Cessation Counseling Requested N/A; Type: Cigarettes; Stopped at age: 55; entered on: 07/31/23 Sex Goals Prevent Readmission Through Ongoing Care Managem ent Start Date:09/28/22 End Date: Status:Met Progression:Met Exacerbations and Complications of COPD Avoided Start Date:09/28/22 End Date: Status:Met Progression:Met Follows Action Plan Appropri ately, Worse or Warning Symptoms Start Date:09/28/22 End Date: Status:Met Progression:Met Note * Tomy Hernandez Health Business Support Associate: PERFORM Event Display: ROI_Correspondence Authored Date: [id number] * Event Display: ROI_Correspondence * Event Display: ROI_Correspondence * Event Display: ROI_Correspondence Letter * Baldev Mccray MD: PERFORM, FOLLOWUP Event Display: Patient Letter Authored Date: [id number] Baldev Mccray MD [address] [facility] [address] [place] [id number] 07/14/2024 07/24/2024 BAM SMALL [address] [place], [place] [id number] We want to let you know about your laboratory results listed below. Your complete blood count was normal, chemistry panel was okay except fasting blood sugar was mildly elevated so try to avoid sugary foods and sweet dishes. Cholesterol levels were good. If you would like to discuss them further with us, or if you have further questions, please call us at your convenience to discuss, or to schedule an appointment to do so. Result Name Current Result Previous Result Reference Range WBC (Thousand/uL) 7.1 07/23/2024 3.8 - 10.8 RBC (Million/uL) 4.94 07/23/2024 4.20 - 5.80 Hemoglobin (g/dL) 15.1 07/23/2024 13.2 - 17.1 Hematocrit (%) 46.0 07/23/2024 38.5 - 50.0 MCV (fL) 93.1 07/23/2024 80.0 - 100.0 MCH (pg) 30.6 07/23/2024 27.0 - 33.0 MCHC (g/dL) 32.8 07/23/2024 32.0 - 36.0 RDW (%) 13.1 07/23/2024 11.0 - 15.0 MPV (fL) 10.8 07/23/2024 7.5 - 12.5 Platelet (Thousand/uL) 185 07/23/2024 140 - 400 Neutro % (%) 60.9 07/23/2024 Lymph % (%) 23.7 07/23/2024 [place] % (%) 8.7 07/23/2024 Eos % (%) 6.0 07/23/2024 Baso % (%) 0.7 07/23/2024 Neutro # (cells/uL) 4,324 07/23/2024 1,500 - 7,800 Lymph # (cells/uL) 1,683 07/23/2024 850 - 3,900 [place] # (cells/uL) 618 07/23/2024 200 - 950 Eos # (cells/uL) 426 07/23/2024 15 - 500 Baso # (cells/uL) 50 07/23/2024 0 - 200 Sodium (mmol/L) 142 07/23/2024 139 01/09/2024 135 - 146 Potassium (mmol/L) 4.6 07/23/2024 4.5 01/09/2024 3.5 - 5.3 Chloride (mmol/L) 105 07/23/2024 105 01/09/2024 98 - 110 CO2 (mmol/L) 29 07/23/2024 29 01/09/2024 20 - 32 BUN (mg/dL) 30 07/23/2024 30 01/09/2024 7 - 25 Creatinine (mg/dL) 1.21 07/23/2024 1.17 01/09/2024 0.70 - 1.22 BUN/Creatinine Ratio ((CALC)) 25 07/23/2024 26 01/09/2024 6 - 22 Glucose (mg/dL) 115 07/23/2024 97 01/09/2024 65 - 99 Calcium (mg/dL) 9.4 07/23/2024 9.4 01/09/2024 8.6 - 10.3 Protein, Total (g/dL) 5.9 07/23/2024 5.8 01/09/2024 6.1 - 8.1 Albumin (g/dL) 3.6 07/23/2024 3.7 01/09/2024 3.6 - 5.1 Alk Phos (U/L) 108 07/23/2024 111 01/09/2024 35 - 144 Bilirubin, Total (mg/dL) 0.6 07/23/2024 0.6 01/09/2024 0.2 - 1.2 AST (U/L) 20 07/23/2024 22 01/09/2024 10 - 35 ALT (U/L) 14 07/23/2024 15 01/09/2024 9 - 46 Globulin (G/DL(%)) 2.3 07/23/2024 2.1 01/09/2024 1.9 - 3.7 A/G Ratio ((CALC)) 1.6 07/23/2024 1.8 01/09/2024 1.0 - 2.5 eGFR (mL/min/1.73m2) 58 07/23/2024 60 01/09/2024 > OR = 60 - Cholesterol (mg/dL) 122 07/23/2024 124 01/09/2024 - <200 Triglyceride (mg/dL) 114 07/23/2024 92 01/09/2024 - <150 Direct HDL (mg/dL) 50 07/23/2024 50 01/09/2024 > OR = 40 - LDL (Calc) (mg/dL (calc)) 52 07/23/2024 56 01/09/2024 Chol/HDL Ratio ((CALC)) 2.4 07/23/2024 2.5 01/09/2024 - <5.0 Non HDL Cholesterol (mg/dL (calc)) 72 07/23/2024 74 01/09/2024 - <130 Baldev Mccray MD Patient Care team information Care Team Personnel Name: Cande Malloy COMMUNITY ENGAGEMENT MANAGER Position: AMB COMMUNITY ENGAGEMENT MANAGER/PA Member Role: Nurse Practitioner Address: Address: [address] [place] [address] [place] [address] [place] Name: Gemma Linder Research And Development Scientist Position: Population Health Coordinator Member Role: Population Health Coordinator Name: Gerhard Sultana MD Position: Physician - Radiation Oncology Member Role: Radiation Oncologist Address: Address: [address] [place] [address] [place] Name: Jeremie Mujica M.D. Position: Physician - Cardiology Member Role: Dental Secretary Heart Failure Address: Address: [address] [place] [address] [place] Name: Garland Haywood MD Member Role: Specialist Physician Name: Veronika Odonnell RN Position: AMB ONC Nurse Navigator Member Role: Nurse Navigator Name: Baldev Mccray MD Position: Physician - Internal Medicine Member Role: Primary Care Physician Address: Address: [address] [place] [address] [place] [address] [place] Name: Laila Burch RN Outpatient Chicken Fancier Position: OP Chicken Fancier Enterprise Resource Analyst Member Role: Chicken Fancier Name: Bronson Vaca COMMUNITY ENGAGEMENT MANAGER Position: AMB ONC COMMUNITY ENGAGEMENT MANAGER Member Role: Nurse Practitioner Address: Address: [address] [place] [address] [place] Name: Lucas Damon Senior Net Developer Architect Position: AMB ONC CPM/MA/RN Member Role: Nurse Navigator Care Team Related Persons Name: BRANDY SMALL Address: home [address] [facility], [phone]
--- OUTSIDE RECORDS SUMMARY | 2024-11-05 00:08 | XMS_ITS | Continuity of Care Document ---
Author Organization [facility] [address] [id number] Care Team Providers Care Specialist Icu Name Role Phone Baldev Mccray Primary Care Physician Encounter [facility] Financial Number [id number] Date(s): 07/14/24 - 07/14/24 [facility] [address] [facility] [address], [place] [id number] Encounter Diagnosis S/P radiation therapy(Discharge Diagnosis) - 07/13/24 History of pulmonary hypertension(Discharge Diagnosis) - 07/13/24 Elevated cholesterol E78.00(Discharge Diagnosis) - 07/13/24 Acid reflux disease(Discharge Diagnosis) - 07/13/24 BPH (benign prostatic hyperplasia)(Discharge Diagnosis) - 07/13/24 Hx of gout(Discharge Diagnosis) - 07/13/24 Hearing loss of both ears(Discharge Diagnosis) - 07/13/24 HTN (hypertension) I10(Discharge Diagnosis) - 07/13/24 ASHD (arteriosclerotic heart disease) I25.10(Discharge Diagnosis) - 07/13/24 Ischemic cardiomyopathy(Discharge Diagnosis) - 07/13/24 Heart failure with reduced ejection fraction(Discharge Diagnosis) - 07/13/24 H/O: lung cancer(Discharge Diagnosis) - 07/13/24 Asthma-COPD overlap syndrome(Discharge Diagnosis) - 07/13/24 Ground glass opacity present on imaging of lung(Discharge Diagnosis) - 07/13/24 Discharge Disposition: Home or Self Care Attending Physician: Baldev Mccray MD Allergies, Adverse Reactions, Alerts No Known Allergies Assessment and Plan Future Appointments Appointment Date:08/10/2024 11:30:00 AM Scheduled Provider: Location:[facility] DOC Cardiology Appointment Type:Echocardiogram Complete Study Appointment Date:08/10/2024 12:30:00 PM Scheduled Provider:Juan Scott MD Location:[facility] Appointment Type:HCS Follow Up Appointment Date:09/28/2024 11:15:00 AM Scheduled Provider:Susan Montiel MD Location:[facility] [address] Appointment Type:CPA EP Established Patient Appointment Date:01/06/2025 11:15:00 AM Scheduled Provider: Location:[facility] DOC CT Appointment Type:CT CHEST Appointment Date:01/11/2025 [...] albuterol 90 mcg/inh inhaler 2 puff(s), Inhalation, t2hrdse, PRN, 1 each, Inhaler, 3, 3, shortness of breath, Slow Breath inhaleslowly and deeply , Route to Pharmacy Electronically, [facility] [address] [place], [id number], 172.72, cm, 07/31/23 10:20:00 CDT, Height, 86.81, kg, 07/31/23 10:20:00 CDT, Weight Start Date: 11/05/23 Status: Ordered allopurinol 100 mg oral tablet 1 tablet(s), Oral, daily, 90 tablet(s), 1, FOR GOUT PREVENTION., Route to Pharmacy Electronically, [facility] STORE [address], [id number], 177, cm, 06/23/24 10:12:00 CDT, Height, 90.9,kg, [...] the prescribing physician., Route to Pharmacy Electronically, [facility] [address] IN [place], [id number], 177, cm, 02/03/24 11:23:00 CDT, Height, 91.81, kg, 02/03/24 11:23:00 CDT, Weight Start Date: 02/03/24 Status: Ordered Entresto 49 mg-51 mg oral tablet 1 tablet(s), Oral, bid, 180 tablet(s), 0, Route to Pharmacy Electronically, [facility] [address], [id number], 177, cm, 06/23/24 10:12:00 CDT, Height, 90.9, kg, 06/23/24 10:12:00 CDT, Weight Start Date: 07/07/24 Status: Ordered fexofenadine 180 mg oral tablet 180 mg, 1 tablet(s), Oral, daily, 30 tablet(s), Tablet(s), 0 Start Date: 11/08/17 Status: Ordered Flomax 0.4 mg oral capsule 0.4 mg, 1 capsule(s), Oral, pm after dinner, 90 capsule(s), Capsule(s), 3, 3, Route to Pharmacy Electronically, [facility] [address] IN [place], [id number], 172.72, cm, 11/06/2022 1120,Height, 89.09, kg, 11/06/2022 1120, Weight Start Date: 11/09/22 Stop Date: 11/04/23 Status: Ordered Keflex 250 mg oral capsule 250 mg, 1 capsule(s), Oral, qhs, 0 Start Date: 09/26/22 Status: Ordered Lasix 20 mg oral tablet 20 mg, 1 tablet(s), Oral, daily, 90 tablet(s), Tablet(s), 3, 3, Route to Pharmacy Electronically, [facility] [address] IN [place], [id number], 177, cm, 02/03/24 11:23:00 CDT, Height, 9 [...] capsule(s), 3, 3, Route to Pharmacy Electronically, [facility] [address] [facility], [id number], 172.72, cm, 07/31/23 10:20:00 CDT, Height, 86.81, kg, 07/31/23 10:20:00 CDT, Weight Start Date: 10/30/23 Status: Ordered Potassium Chloride (Eqv-K-Tab) 10 mEq oral tablet, extended release 10 mEq, 1 tablet(s), Oral, bid, 180 tablet(s), 3, 3, Route to Pharmacy Electronically, [facility] [address] [facility], [id number], 172.72, cm, 11/06/2022 1120, Height, 89.09, kg, 11/06/2022 1120, Weight Start Date: 11/09/22 Stop Date: 11/04/23 Status: Ordered prochlorperazine 10 mg oral tablet 10 mg, 1 tablet(s), Oral, daily, PRN, 30 tablet(s), Tablet(s), 1, 1, nausea, Route to Pharmacy Electronically, [facility] [address] IN [place], [id number], 177, cm, 01/03/24 13:03:00 NIGHT NURSE, Height, 91.2, kg, 01/03/24 13:03:00 NIGHT NURSE, Weight Start Date: 01/03/24 Stop Date: 03/03/24 Status: Ordered rosuvastatin 20 mg oral tablet 1 tablet(s), Oral, HS, 90 tablet(s), 0, Route to Pharmacy Electronically, [facility] [address], [id number], 177, cm, 02/03/24 11:23:00 CDT, Height, 91.81, kg, 02/03/24 11:23:00 CDT, Weight Start Date: 06/19/24 Status: Ordered Trelegy Ellipta SAMPLE 200 mcg-62.5 mcg-25 mcg/inh Inhaler 1 puff(s), Inhalation, daily, Fast Breath???inhale quickly and deeply , Medication Sample Given, 1,inhaler Start Date: 07/14/24 Status: Ordered Wixela Inhub 250 mcg-50 mcg inhalation powder 1 puff(s), Inhalation, bid, 1 each, Inhaler, 3, 3, Fast Breath inhale quickly and deeply, Route to Pharmacy Electronically, [facility] [address] [place], [id number], 172.72, cm, 07/31/23 10:20:00 CDT, Height, 86.81, kg, 07/31/23 10:20:00 CDT, Weight Start Date: 11/05/23 Status: Ordered Problem List Condition Confirmation Course Effective Dates Status H ealth Status Informant Allergic rhinitis Confirmed Active Asthma-COPD overlap syndrome Confirmed Active ASHD (arteriosclerotic heart disease) I25.10 Confirmed Active BPH (benign prostatic hyperplasia) Confirmed Active Hearing loss of both ears Confirmed Active Coronary arteriosclerosis in [place] artery Confirmed Active HTN (hypertension) I10 Confirmed [...] 04/2010 C ompleted Prostate implantation Com pleted [id number] 2left Vital Signs Most recent to oldest [Reference Range]: 1 Temperature Temporal Artery [35.8-38 Deg C] 36.2 DegC (07/14/24 11:38 AM) Peripheral Pulse Rate [60-100 bpm] 48 bp m *L (07/14/24 11:38 AM) Blood Pressure [89-139/60-90 mm Hg] 122/ 68mm Hg (07/14/24 11:38 AM) Height 177.80 cm (07/14/24 11:38 AM) Weight 92.3 kg (07/14/24 11:38 AM) Social History Social History Type Response [...] Status:Met Progression:Met Note * [facility] [employer] Machine Setup Operator: PERFORM Event Display: ROI_Correspondence Authored Date: * Event Display: ROI_Correspondence * Event Display: ROI_Correspondence * Event Display: ROI_Correspondence Internal medicine Outpatient Note * Baldev Mccray MD: PERFORM Event Display: Internal Medicine Office/Clinic Note Authored Date: Patient Information Name:BAM SMALL Address: [address] [place] [phone] Sex:Male Date of :1935 Emergency Contact:BRANDY SMALL Location:[facility] [address] Registration Date and Time:07/14/2024 11:03 CDT Primary Care Physician: Baldev Mccray MD, Attending Physician: Baldev Mccray MD, Chief Complaint 6 month f/u; medical issues History of Present Illness Mr. Small??is here today for his follow-up visit.?? He was recently??seen by his master chef??Dr Montiel??and??his inhaler??was??changed to Trelegy??and??it is working better for him because his??cough??has lessened significantly.?? His blood pressure is under control??and clinically he appears saida well compensated??on current regimen. ??He is ??bradycardic??with a heart rate of around 48 bpm and he is on metoprolol treatment??but he is not having any??symptoms related to it. His GERD symptoms??are well-controlled on??omeprazole. He has hearing loss and uses hearing aids. He is due for lab work. Review of Systems GENERAL: No significant wt loss or wt gain, no fever or chills HEENT: No ??pain in ears, nose ??or throat,??using hearing aids for hearing loss? RESPIRATORY: Intermittent??cough, occasional??SOB or Wheezing, no pleuritic chest pain CVS: No chest pain, exertional dyspnea, palpitation, dizziness or syncope GI: No abdominal pain, nausea, vomiting, diarrhea or blood in stool MUSCULOSKELETAL: No joint pain or swelling or redness of joints SKIN: No skin lesions or rashes or change in moles : No dysuria, no incontinence,no blood in urine?? NEUROLOGICAL: No dizziness, headache or visual changes. No focal weakness or sensory disturbance PSYCHIATRIC: No depression, suicidal or homicidal thoughts, no mood swings ? Vitals and Measurements Vital Signs Height: 177.8 cm Height Inches Conversion: 70 Weight: 92.3 kg Weight in Pounds (kg conversion): 203.1 Body Surface Area: 2.1351 m2 Body Mass Index: 29.2 kg/m2 Temperature Temporal Artery: 36.2 DegC Systolic Blood Pressure: 122 mm Hg Diastolic Blood Pressure: 68 mm Hg Peripheral Pulse Rate:??48 bpm??Critical Oxygen Saturation: 97 % HRA Pain Present: No Physical Exam General Examination GENERAL APPEARANCE: Overall appearance is appropriate for patient???s age, well developed and well nourished, in no acute distress.? EYES: extra ocular muscles intact (EOMI) bilaterally, pupils, equal, round, sclera clear.?? HEENT: Head - normocephalic/atraumatic, EARS: Wearing hearing aids??NOSE: Exam deferred ORAL CAVITY: Exam deferred NECK/THYROID: no carotid bruit, no jugular venous distention (JVD), no lymphadenopathy, no thyromegaly.?? CARDIOVASCULAR: Bradycardic but??regular rate and rhythm, normal S1S2, no murmurs, gallops or rubs.?? CHEST: symmetrical.?? RESPIRATORY: Slight diminished??breath sounds??throughout, no wheezes, rhonchi, rales.?? GASTROINTESTINAL: soft, non-tender/non-distended, bowel sounds present.?? SKIN: unremarkable.?? EXTREMITIES: no clubbing, cyanosis, trace??edema.?? PERIPHERAL PULSES: (+) bilaterally.?? LYMPH NODES: No palpable adenopathy.?? RECTAL: Deferred BACK: No spinal tenderness. MUSCULOSKELETAL: No acute??redness or swelling of joints. NEUROLOGIC EXAM: Alert and orientated?3, cranial nerves II-XII grossly intact,??no motor/sensorydeficit. Gait??not tested??but usually walks with a cane PSYCHIATRIC: Normal affect, no suicidal or homicidal ideations or thoughts, ??good eye contact.? Assessment/Plan 1.??HTN (hypertension) I10 Blood pressure is stable and under control on current regimen. ??Followed by automobile service station manager Dr. Scott. Ordered: CBC with Differential, 07/14/24 12:13:00 CDT, Blood, ROUTINE, Routine, 07/14/24 12:14:00 CDT, NurseCollect, Print Label, ASHD (arteriosclerotic heart disease) I25.10 HTN (hypertension) I10, Hold Until Collected, [facility] COMPREHENSIVE METABOLIC PANEL - Ref Lab Only Q, 07/14/24 12:13:00 CDT, Blood, ROUTINE, Routine, 07/14/24 12:14:00 CDT, Nurse Collect, Print Label, ASHD (arteriosclerotic heart disease) I25.10 HTN (hypertension) I10, Hold Until Collected, [facility] Lipid Panel, 07/14/24 12:13:00 CDT, Blood, ROUTINE, Routine, 07/14/24 12:14:00 CDT, Nurse Collect, Print Label, ASHD (arteriosclerotic heart disease) I25.10 HTN (hypertension) I10, Not Required, Hold Until Collected, Yes, [facility] ?? 2.??ASHD (arteriosclerotic heart disease) I25.10 Followed by automobile service station manager as mentioned above.?? Continue current meds. Ordered: CBC with Differential, 07/14/24 12:13:00 CDT, Blood, ROUTINE, Routine, 07/14/24 12:14:00 CDT, NurseCollect, Print Label, ASHD (arteriosclerotic heart disease) I25.10 HTN (hypertension) I10, Hold Until Collected, [facility] COMPREHENSIVE METABOLIC PANEL - Ref Lab Only Q, 07/14/24 12:13:00 CDT, Blood, ROUTINE, Routine, 07/14/24 12:14:00 CDT, Nurse Collect, Print Label, ASHD (arteriosclerotic heart disease) I25.10 HTN (hypertension) I10, Hold Until Collected, [facility] Lipid Panel, 07/14/24 12:13:00 CDT, Blood, ROUTINE, Routine, 07/14/24 12:14:00 CDT, Nurse Collect, Print Label, ASHD (arteriosclerotic heart disease) I25.10 HTN (hypertension) I10, Not Required, Hold Until Collected, Yes, [facility] ?? 3.??Ischemic cardiomyopathy Currently??denies chest pain or angina symptoms.?? Followed by automobile service station manager as mentioned above. ?? 4.??Heart failure with reduced ejection fraction Clinically appears to be well compensated on current med regimen.?? Followed by automobile service station manager Dr. Scott. ?? 5.??H/O: lung cancer Had radiation treatment??and followed by master chef??Dr Montiel.?? Followed by radiation oncologist. ?? 6.??S/P radiation therapy Followed by radiation oncologist Dr. Sultana. ?? 7.??Asthma-COPD overlap syndrome Followed by??master chef Dr Montiel.?? Was seen by her recently??and??inhaler treatment??was changed to Trelegy which is working better for him. ?? 8.??Ground glass opacity present on imaging of lung Monitored and followed by master chef.?? Scheduled to have??another CT scan in future. ?? 9.??History of pulmonary hypertension Followed by pulmonary??and automobile service station manager. ?? 10.??Elevated cholesterol E78.00 Follow low-fat low-cholesterol heart healthy??diet and continue??taking rosuvastatin. ?? 11.??Acid reflux disease Follow??reflux precautions and continue to use omeprazole??for acid reduction. ?? 12.??BPH (benign prostatic hyperplasia) Continue to take??tamsulosin. ?? 13.??Hx of gout Follow low purine diet and??continue to use allopurinol for gout prophylaxis. ?? 14.??Hearing loss of both ears Continue to use??hearing aids. ?? Patient Instructions This visit included provision for longitudinal care for multiple medical conditions for the patient. ?Follow-up in 6 months for CPE Problem List/Past Medical History Ongoing Acid reflux disease Allergic rhinitis ASHD (arteriosclerotic heart disease) I25.10 Asthma-COPD overlap syndrome BPH (benign prostatic hyperplasia) Bulging lumbar disc Cataract Coronary arteriosclerosis in [place] artery Elevated cholesterol E78.00 Gout Ground glass opacity present on imaging of lung H/O: lung cancer Hearing loss of both ears Heart failure with reduced ejection fraction High blood pressure High cholesterol History of lung cancer History of pulmonary hypertension HTN (hypertension) I10 Hx of gout Hyperplasia of prostate Ischemic cardiomyopathy Kidney stone Lesion of lung Nausea and vomiting Need for vaccination Nocturia Restrictive ventilatory defect Solitary pulmonary nodule Urinary incontinence Historical Acute exacerbation of chronic obstructive airways disease J44.1 Cancer of prostate Chest pain Deep vein thrombosis (DVT) Procedure/Surgical History ???CABG x 5 - Coronary artery bypass grafts x 5???CE - Cataract extraction???Hip arthroplasty???lumbar back surg 04/2010???Prostate implantation Medications Unchanged albuterol (albuterol 90 mcg/inh inhaler)2 puff(s) Inhalation every 4 hours as needed shortness of breath. Slow Breath inhale slowly and deeply . Refills: 3. allopurinol (allopurinol 100 mg oral tablet)1 tablet(s) By mouth daily. FOR GOUT PREVENTION.. Refills: 1. aspirin (aspirin 81 mg oral enteric coated tablet)1 tablet(s) By mouth daily. cephalexin (Keflex 250 mg oral capsule)1 capsule(s) By mouth every evening at bedtime. dapagliflozin (dapagliflozin 5 mg oral tablet)1 tablet(s) By mouth daily. This medication can be used for both Heart Failure and Diabetes, please do not stop or substitute without talking to the prescribing physician.. Refills: 11. fexofenadine (fexofenadine 180 mg oral tablet)1 tablet(s) By mouth daily. fluticasone-salmeterol (Wixela Inhub 250 mcg-50 mcg inhalation powder)1 puff(s) Inhalation 2 times a day. Fast Breath inhale quickly and deeply. Refills: 3. fluticasone/umeclidinium/vilanterol (Trelegy Ellipta SAMPLE 200 mcg-62.5 mcg-25 mcg/inh Inhaler)1 puff(s) Inhalation daily. Fast Breath???inhale quickly and deeply . furosemide (Lasix 20 mg oral tablet)1 tablet(s) By mouth daily. Refills: 3. metoprolol (Metoprolol Succinate ER 50 mg oral tablet, extended release)1 tablet(s) By mouth daily.Refills: 3. multivitamin (Multivitamin oral tablet)1 tablet(s) By mouth daily. omeprazole (omeprazole 20 mg oral delayed release capsule)1 capsule(s) By mouth daily. Refills: 3. potassium chloride (Potassium Chloride (Eqv-K-Tab) 10 mEq oral tablet, extended release)1 tablet(s)By mouth 2 times a day for 90 day(s). Refills: 3. prochlorperazine (prochlorperazine 10 mg oral tablet)1 tablet(s) By mouth daily as needed nausea for 30 day(s). Refills: 1. rosuvastatin (rosuvastatin 20 mg oral tablet)1 tablet(s) By mouth HS. Refills: 0. sacubitril-valsartan (Entresto 49 mg-51 mg oral tablet)1 tablet(s) By mouth 2 times a day. Refills:0. tamsulosin (Flomax 0.4 mg oral capsule)1 capsule(s) By mouth every evening after dinner for 90 day(s). Refills: 3. Immunizations Vaccine Date StatusRSV vaccine preF3, recombinant 08/08/2023 Recorded influenza virus vaccine, inactivated 07/30/2023 Recorded SARS-CoV-2 (COVID-19) mRNA-LNP vaccine ( 07/30/2023 Recorded SARS-CoV-2 (COVID-19) mRNA BNT-162b2 vax 08/03/2022 Recorded influenza virus vaccine, inactivated 08/03/2022 Recorded influenza virus vaccine, inactivated 08/03/2022 Recorded influenza virus vaccine, inactivated 08/29/2018 Recorded influenza virus vaccine, H1N1, inactivat 07/15/2017 Recorded pneumococcal 13-valent vaccine 10/14/2014 Recorded Allergies NKA Social History Smoking Status - 02/25/2015 Former smoker Alcohol Current every day alcohol user, Liquor, Daily, 1 drink, 02/03/2024 Current some day alcohol user, Wine, 01/24/2023 Substance Abuse Never drug user, 02/03/2024 Never drug user, 01/24/2023 Tobacco Former smoker, Smokeless Tobacco use: Never. N/A Cessation Counseling. Cigarettes, Stopped age 55 Years., 07/31/2023 Family History ?Mother ?Positive ?Hypertension ?Mother ?Positive ?Breast cancer ?Sister ?Positive ?Arthritis ?Mother ?Positive ?Stroke ?Grandmother/Maternal ?Unknown ?Grandfather/Maternal ?Unknown ?Grandmother/Paternal ?Unknown ?Grandfather/Paternal ?Unknown ? POC Results Event Name?? Event Result?? Date/Time?? Oxygen Saturation 97 % 07/14/24 11:38:00 ? Voice to Text Technology Disclaimer This note may contain text inserted via Dragon or other voice to text assistive technology and manager procurement, variances may occur. Outpatient Summary note * Izabella Coronado MA-MR: PERFORM Event Display: Ambulatory Patient Summary Authored Date: [id number] BAM SMALL :1935 Visit Date:07/14/2024 [facility] Visit Instructions Your Diagnosis HTN (hypertension) I10 ASHD (arteriosclerotic heart disease) I25.10 Ischemic cardiomyopathy Heart failure with reduced ejection fraction H/O: lung cancer S/P radiation therapy Asthma-COPD overlap syndrome Ground glass opacity present on imaging of lung History of pulmonary hypertension Elevated cholesterol E78.00 Acid reflux disease BPH (benign prostatic hyperplasia) Hx of gout Hearing loss of both ears Your Care Team Attending Physician - Baldev Mccray MD Primary Care Physician - Baledv Mccray MD Procedure History ???CABG x 5 - Coronary artery bypass grafts x 5???CE - Cataract extraction???Hip arthroplasty???lumbar back surg 04/2010???Prostate implantation Discharge Vitals Vital Signs Height: 177.8 cm Height Inches Conversion: 70 Weight: 92.3 kg Weight in Pounds (kg conversion): 203.1 Body Surface Area: 2.1351 m2 Body Mass Index: 29.2 kg/m2 Temperature Temporal Artery: 36.2 DegC Systolic Blood Pressure: 122 mm Hg Diastolic Blood Pressure: 68 mm Hg Peripheral Pulse Rate:??48 bpm??Critical Oxygen Saturation: 97 % HRA Pain Present: No What to do next Scheduled Follow-Up Appointments Saturday 11:30 AM CDT ?? With: Where: [facility] Saturday 12:30 PM CDT ?? With: Juan Scott MD Where: [facility] Saturday 11:15 AM NIGHT NURSE ?? With: Susan Montiel MD Where: [facility] [address] [facility] [address] [place], [place] [phone] Saturday 11:15 AM NIGHT NURSE ?? With: Where: [facility] Saturday 1:00 PM CDT ?? With: Baldev Mccray MD Where: [facility] [address] [facility] [address] [place], [place] [id number] Referral Information Referral Information ? No Results Found ? Medications What How Much When Instructions Unchanged albuterol (albuterol 90 mcg/ inh inhaler) 2 puff(s) Inhalation Every 4 hours as needed for shortness of breath Slow Breath inhale slowly and deeply ?? Unchanged allopurinol (allopurinol 100 mg oral tablet) 1 tablet(s) By mouth Daily FOR GOUT PREVENTION. ?? Unchanged aspirin (aspirin 81 mg oral enteric coated tablet) 1 tablet(s) By mouth Daily Unchanged cephalexin (Keflex 250 mg oral capsule) 1 capsule(s) By mouth Every evening at bedtime Unchanged dapagliflozin (dapagliflozin 5 mg oral tablet) 1 tablet(s) By mouth Daily This medication can be used for both Heart Failure and Diabetes, please do not stop or substitute without talking to the prescribing physician. ?? Unchanged fexofenadine (fexofenadine 180 mg oral tablet) 1 tablet(s) By mouth Daily Unchanged fluticasone-salmeterol (Wixela Inhub 250 mcg-50 mcg inhalation powder) 1 puff(s) Inhalation 2 times a day Fast Breath inhale quickly and deeply ?? Unchanged fluticasone/ umeclidinium/ vilanterol (Trelegy Ellipta SAMPLE 200 mcg- 62.5 mcg-25 mcg/ inh Inhaler) 1 puff(s) Inhalation Daily Fast Breath???inhale quickly and deeply ?? Unchanged furosemide (Lasix 20 mg oral tablet) 1 tablet(s) By mouth Daily Unchanged metoprolol (Metoprolol Succinate ER 50 mg oral tablet, extended release) 1 tablet(s) By mouth Daily Unchanged multivitamin (Multivitamin oral tablet) 1 tablet(s) By mouth Daily Unchanged omeprazole (omeprazole 20 mg oral delayed release capsule) 1 capsule(s) By mouth Daily Unchanged potassium chloride (Potassium Chloride (Eqv-K-Tab) 10 mEq oral tablet, extended release) 1 tablet(s) By mouth 2 times a day Duration: 90 day(s) Unchanged prochlorperazine (prochlorperazine 10 mg oral tablet) 1 tablet(s) By mouth Daily as needed for nausea Duration: 30 day(s) Unchanged rosuvastatin (rosuvastatin 20 mg oral tablet) 1 tablet(s) By mouth HS Unchanged sacubitril-valsartan (Entresto 49 mg-51 mg oral tablet) 1 tablet(s) By mouth 2 times a day Unchanged tamsulosin (Flomax 0.4 mg oral capsule) 1 capsule(s) By mouth Every evening after dinner Duration: 90 day(s) Medications and Immunizations Administered Medication Administrations ? No Results Found ? Allergies NKA Problems Ongoing Acid reflux disease Allergic rhinitis ASHD (arteriosclerotic heart disease) I25.10 Asthma-COPD overlap syndrome BPH (benign prostatic hyperplasia) Bulging lumbar disc Cataract Coronary arteriosclerosis in [place] artery Elevated cholesterol E78.00 Gout Ground glass opacity present on imaging of lung H/O: lung cancer Hearing loss of both ears Heart failure with reduced ejection fraction High blood pressure High cholesterol History of lung cancer History of pulmonary hypertension HTN (hypertension) I10 Hx of gout Hyperplasia of prostate Ischemic cardiomyopathy Kidney stone Lesion of lung Nausea and vomiting Need for vaccination Nocturia Restrictive ventilatory defect Solitary pulmonary nodule Urinary incontinence PatientStated Former smoker S/P radiation therapy Historical Acute exacerbation of chronic obstructive airways disease J44.1 Cancer of prostate Chest pain Deep vein thrombosis (DVT) Common Emergency Awareness Tips IS IT A STROKE? Act FAST and Check for these signs: FACE Does the face look uneven? ARM Does one arm drift down? SPEECH Does their speech sound strange? TIME Call at any sign of stroke Voice to Text Technology Disclaimer This note may contain text inserted via Dragon or other voice to text assistive technology and manager procurement, variances may occur. Patient Care team information Care Team Personnel Name: Cande Malloy ADMITTING INTERVIEWER Position: AMB ADMITTING INTERVIEWER/PA Member Role: Nurse Practitioner Address: Address: [address] [place] [phone] [place] Name: Gemma Linder Mower Mechanic Position: Population Health Coordinator Member Role: Population Health Coordinator Name: Gerhard Sultana MD Position: Physician - Radiation Oncology Member Role: Radiation Oncologist Address: Address: [address] [place] [address] [place] Name: Jeremie Mujica M.D. Position: Physician - Cardiology Member Role: Magnet Maker Heart Failure Address: Address: [address] [place] [phone] [place] Name: Garland Haywood MD Member Role: Specialist Physician Name: Veronika Odonnell RN Position: AMB ONC Nurse Navigator Member Role: Nurse Navigator Name: Baldev Mccray MD Position: Physician - Internal Medicine Member Role: Primary Care Physician Address: Address: [address] [place] [address] [address] Name: Laila Burch RN Outpatient Automobile Service Station Manager Position: OP Automobile Service Station Manager Student Success Coach Member Role: Automobile Service Station Manager Name: Bronson Vaca ADMITTING INTERVIEWER Position: AMB ONC ADMITTING INTERVIEWER Member Role: Nurse Practitioner Address: Address: [address] [place] [address] [place] Name: Lucas Damon Baccarat Dealer Position: AMB ONC CPM/MA/RN Member Role: Nurse Navigator Name: Baldev Mccray MD Position: Physician - Internal Medicine Med Service: Calender Runner Specialist Icu Role: Attending Physician Address: Address: [address] [facility] [address] Care Team Related Persons Name: BRANDY SMALL Address: home [address] [facility] [phone]
--- OUTSIDE RECORDS SUMMARY | 2024-11-05 00:08 | XMS_ITS | Continuity of Care Document ---
Author Organization [facility] [address] [id number] Care Team Providers Care Building Services Engineer Name Role Phone Baldev Mccray Primary Care Physician [phone] Encounter [facility] Financial Number [id number] Date(s): 09/28/24 - 09/28/24 [facility] [address] [phone] Encounter Diagnosis Asthma-COPD overlap syndrome(Discharge Diagnosis) - 09/28/24 Asthma exacerbation(Discharge Diagnosis) - 09/28/24 H/O: lung cancer(Discharge Diagnosis) - 09/28/24 Discharge Disposition: Home or Self Care Attending Physician: Susan Montiel MD Allergies, Adverse Reactions, Alerts No Known Allergies Assessment and Plan Future Appointments Appointment Date:12/29/2024 02:00:00 PM Scheduled Provider:Susan Montiel MD Location:[facility] Appointment Type:CPA EP Established Patient Appointment Date:01/06/2025 11:15:00 AM Scheduled Provider: Location:[facility] Appointment Type:CT CHEST Appointment Date:01/11/2025 01:00:00 PM Scheduled Provider:Baldev Mccray MD [facility] Physical Exam Appointment Date:02/15/2025 12:30:00 PM Scheduled Provider:Juan Gu MD Location:[facility] Appointment Type:[facility] Follow Up Immunizations Given and Recorded Vaccine Date Status [...] albuterol 90 mcg/inh inhaler 2 puff(s), Inhalation, g9tsskt, PRN, 1 each, Inhaler, 3, 3, shortness of breath, Slow Breath inhaleslowly and deeply , Route to Pharmacy Electronically, [place] [address] [facility], [id number], 172.72, cm, 07/31/23 10:20:00 CDT, Height, 86.81, kg, 07/31/23 10:20:00 CDT, Weight Start Date: 11/05/23 Status: Ordered allopurinol 100 mg oral tablet 1 tablet(s), Oral, daily, 90 tablet(s), 1, FOR GOUT PREVENTION., Route to Pharmacy Electronically, [facility] [address], [id number], 177, cm, 06/23/24 10:12:00 CDT, Height, 90.9,kg, 06/23/24 10:12:00 CDT, Weight Start Date: 07/07/24 Status: Ordered aspirin 81 mg oral enteric coated tablet 81 mg, 1 tablet(s), Oral, daily, Tab EC, 0 Start Date: 11/08/17 Status: Ordered Azithromycin 5 Day Dose Pack 250 mg oral tablet 1 packet(s), Oral, daily, 5 day(s), 6 tablet(s), Packet, 0, 0, 10/03/24 11:45:00 AM WINDOWS MIGRATION TECHNICIAN, as directed on package labeling, Route to Pharmacy Electronically, [place] [id number] [facility], [id number], 177, cm, 09/28/24 10:57:00 WINDOWS MIGRATION TECHNICIAN, Height, 91, kg, 09/28/24 10:57:00 WINDOWS MIGRATION TECHNICIAN, Weight Start Date: 09/28/24 Stop Date: 10/03/24 Status: Ordered dapagliflozin 5 mg oral tablet 5 mg, 1 tablet(s), Oral, daily, 30 tablet(s), Tablet(s), 11, 11, This medication can be used for both Heart Failure and Diabetes, please do not stop or substitute without talking to the prescribing physician., Route to Pharmacy Electronically, [facility] [address] [facility], [id number], 177, cm, 02/03/24 11:23:00 CDT, Height, 91.81, kg, 02/03/24 11:23:00 CDT, Weight Start Date: 02/03/24 Status: Ordered Entresto 49 mg-51 mg oral tablet 1 tablet(s), Oral, bid, 180 tablet(s), 0, Route to Pharmacy Electronically, [facility] [address], [id number], 177, cm, 06/23/24 10:12:00 CDT, Height, 90.9, kg, 06/23/24 10:12:00 CDT, Weight Start Date: 07/07/24 Status: Ordered fexofenadine 180 mg oral tablet 180 mg, 1 tablet(s), Oral, daily, 30 tablet(s), Tablet(s), 0 Start Date: 11/08/17 Status: Ordered Flomax 0.4 mg oral capsule 0.4 mg, 1 capsule(s), Oral, pm after dinner, 90 capsule(s), Capsule(s), 3, 3, Route to Pharmacy Electronically, [facility] [address] [facility], [id number], 172.72, cm, 11/06/2022 1120,Height, 89.09, kg, 11/06/2022 1120, Weight Start Date: 11/09/22 Stop Date: 11/04/23 Status: Ordered Keflex 250 mg oral capsule 250 mg, 1 capsule(s), Oral, qhs, 0 Start Date: 09/26/22 Status: Ordered Lasix 20 mg oral tablet 20 mg, 1 tablet(s), Oral, daily, 90 tablet(s), Tablet(s), 3, 3, Route to Pharmacy Electronically, [facility] [address] [facility], [id number], 177, cm, 02/03/24 11:23:00 CDT, Height, 9 [...] capsule(s), 3, 3, Route to Pharmacy Electronically, [facility] [address] [facility], [id number], 172.72, cm, 07/31/23 10:20:00 CDT, Height, 86.81, kg, 07/31/23 10:20:00 CDT, Weight Start Date: 10/30/23 Status: Ordered Potassium Chloride (Eac-Djcb-Xlg 10) 10 mEq oral tablet, extended release 10 mEq, 1 tablet(s), Oral, bid, 360 tablet(s), 1, Route to Pharmacy Electronically, [facility] [address], [id number], 177.8, cm, 08/10/24 12:28:00 CDT, Height, 91.81, kg, 08/10/24 12:28:00 CDT, Weight Start Date: 09/01/24 Stop Date: 02/28/25 Status: Ordered predniSONE 10 mg oral tablet Taper from 40 mg q3day by 10 mg till off, Oral, daily, 30 tablet(s), 0, 0, Route to Pharmacy Electronically, [facility] [address] [facility], [id number], 177, cm, 09/28/24 10:57:00 WINDOWS MIGRATION TECHNICIAN, Height, 91, kg, 09/28/24 10:57:00 WINDOWS MIGRATION TECHNICIAN, Weight Start Date: 09/28/24 Stop Date: 10/10/24 Status: Ordered prochlorperazine 10 mg oral tablet 10 mg, 1 tablet(s), Oral, daily, PRN, 30 tablet(s), Tablet(s), 1, 1, nausea, Route to Pharmacy Electronically, [facility] [address], [id number], 177, cm, 01/03/24 13:03:00 WINDOWS MIGRATION TECHNICIAN, Height, 91.2, kg, 01/03/24 13:03:00 WINDOWS MIGRATION TECHNICIAN, Weight Start Date: 01/03/24 Stop Date: 03/03/24 Status: Ordered rosuvastatin 20 mg oral tablet 1 tablet(s), Oral, HS, 90 tablet(s), 0, Route to Pharmacy Electronically, [facility], [id number], 177, cm, 02/03/24 11:23:00 CDT, Height, 91.81, kg, 02/03/24 11:23:00 CDT, Weight Start Date: 06/19/24 Status: Ordered Tessalon Perles 100 mg oral capsule 100 mg, 1 capsule(s), Oral, tid, PRN, 30 capsule(s), Capsule(s), 0, 0, cough, Route to Pharmacy Electronically, [facility] [address] [facility], [id number], 177.8, cm, 07/14/24 11:38:00 CDT, Height, 92.3, kg, 07/14/24 11:38:00 CDT, Weight Start Date: 07/20/24 Status: Ordered Trelegy Ellipta 200 mcg-62.5 mcg-25 mcg/inh inhalation powder 1 puff(s), Inhalation, daily, 1 each, Inhaler, 6, 6, Fast Breath inhale quickly and deeply, Route to Pharmacy Electronically, [facility] [address] [facility], [id number], 177, cm, 09/28/24 10:57:00 WINDOWS MIGRATION TECHNICIAN, Height, 91, kg, 09/28/24 10:57:00 WINDOWS MIGRATION TECHNICIAN, Weight Start Date: 09/28/24 Stop Date: 04/26/25 Status: Ordered Problem List Condition Confirmation Course Effective Dates Status H ealth Status Informant Allergic rhinitis Confirmed Active Asthma-COPD overlap syndrome Confirmed Active ASHD (arteriosclerotic heart disease) I25.10 Confirmed Active BPH (benign prostatic hyperplasia) Confirmed Active Hearing loss of both ears Confirmed Active 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 HTN (hypertension) I10 Confirmed Active Acid reflux disease Confirmed Active Gout Confirmed Active Ground glass opacity present on imaging of lung Confirmed Active History of pulmonary hypertension Confirmed Active Hx of gout Confirmed Active Heart failure with mid-range ejection fraction Confirmed Active Heart failure with reduced ejection [...] 04/2010 C ompleted Prostate implantation Com pleted [id number] 2left Vital Signs Most recent to oldest [Reference Range]: 1 Peripheral Pulse Rate [60-100 bpm] 45 bp m *L (09/28/24 10:57 AM) Height 177 cm (09/28/24 10:57 AM) Weight 91 kg (09/28/24 10:57 AM) Social History Social History Type Response Alcohol Current every day al cohol user, Liquor, Daily, 1 drink Substance Abuse Never drug user Smoking Status Former smoker;Never; Tobacco Cessation Counseling Requested N/A; Type: Cigarettes; Stopped at age: 55; entered on: 07/31/23 Sex Sex Representation Male (finding) Goals Prevent Readmission Through Ongoing Care Managem ent Start Date:09/28/22 End Date: Status:Met Progression:Met Exacerbations and Complications of COPD Avoided Start Date:09/28/22 End Date: Status:Met Progression:Met Follows Action Plan Appropri ately, Worse or Warning Symptoms Start Date:09/28/22 End Date: Status:Met Progression:Met Note * Tomy Hernandez [employer] Osteopathic Neurologist: PERFORM Event Display: ROI_Correspondence Authored Date: * Event Display: ROI_Correspondence * Event Display: ROI_Correspondence * Event Display: ROI_Correspondence Patient Care team information Care Team Personnel Name: Cande Malloy BURRER MACHINE Position: AMB BURRER MACHINE/PA Member Role: Nurse Practitioner Address: [address] [place] [address] [place] Name: Gemma Linder Draw Machine Operator Position: Population Health Coordinator Member Role: Population Health Coordinator Name: Gerhard Sultana MD Position: Physician - Radiation Oncology Member Role: Radiation Oncologist Address: [address] [place] [address] [place] Name: Jeremie Mujica M.D. Position: Physician - Cardiology Member Role: Adoption Services Manager Heart Failure Address: [address] [place] [address] [place] Name: Garland Haywood MD Member Role: Specialist Physician Name: Veronika Odonnell RN Position: AMB ONC Nurse Navigator Member Role: Nurse Navigator Name: Baldev Mccray MD Position: Physician - Internal Medicine Member Role: Primary Care Physician Address: [address] [place] [address] [place] [address] [place] Name: Laila Burch RN Outpatient Cold Roller Position: OP Cold Roller Rigging Slinger Member Role: Cold Roller Name: Bronson Vaca BURRER MACHINE Position: AMB ONC BURRER MACHINE Member Role: Nurse Practitioner Address: [address] [place] [address] [place] Name: Lucas Damon Heating Element Repairer Position: AMB ONC CPM/MA/RN Member Role: Nurse Navigator Name: Susan Montiel MD Position: Physician - Pulmonology Med Service: Platform Architect Building Services Engineer Role: Attending Physician Address: [address] [facility] [address] [place] [address] [place] Care Team Related Persons Name: BRANDY SMALL Insurance Providers Guarantor name: BAM SMALL Health Plan Information #: 1 Payer: Medicare Member Number: [id number] Policy Number: NA Health Plan Information #: 2 Payer: Medicare Supplement Member Number: [id number] Policy Number: NA
--- OUTSIDE RECORDS SUMMARY | 2024-11-05 00:08 | XMS_ITS | Continuity of Care Document ---
Author Organization [facility] Address [address] [place] [phone] Care Team Providers Care Human Services Manager Name Role Phone Luis Fernando Vo Primary Care Physician Garland Haywood Encounter [facility] Financial Number [id number] Date(s): 09/22/22 - 09/26/[address] [phone] Encounter Diagnosis COPD exacerbation(Discharge Diagnosis) - 09/22/22 Atrial fibrillation(Discharge Diagnosis) - 09/22/22 Discharge Disposition: Home with Home Health Care Attending Physician: Binh Jiang M.D. Admitting Physician: Alfonzo Durham M.D. Allergies, Adverse Reactions, Alerts No Known Allergies Assessment and Plan Extracted from: Title:Discharge Summary, Short Stay Author:Binh Thorne M.D. Date:09/26/22 Discharge Summary Reason for Hospitalization: Patient is an 86-year-old male with a past medical history of COPD, stage I right upper lobe lung cancer (status post radiation therapy), CAD status post CABG, hypertension, hyperlipidemia, gout, who presents with shortness of breath, productive cough, and chest discomfort. In the ED, noted to have wheezing on exam and given steroids and albuterol with improvement of symptoms. Viral respiratory pathogen panel was obtained and was negative. Chest x-ray showed no acute process. Patient was also given ceftriaxone and azithromycin for possible pneumonia. Pulmonology and cardiology were consulted by ED. Admitted for further management. Upon arrival to floor, patient with adequate oxygen saturation on room air and states that he is feeling much better, with significant improvement of symptoms and feeling almost back to baseline.. Hospital Course\Significant Findings: Patient was admitted to hospital and had management of the following medical problems. Acute on chronic heart failure with reduced ejection fraction. -Diuresed with IV Lasix and transitioned to oral lasix -Echocardiogram results reviewed which showed ejection fraction of 25%. -Echo also showed mild to moderate mitral regurgitation and moderate tricuspid regurgitation. He had elevated RSVP. -Cardiology was consulted and appreciate input from Dr. Mujica -Continue on metoprolol, Entresto - LifeVest on discharge Chest pain, CAD: History of CABG -MO was ruled out. Monitor on the rehabilitation technician. Continue on aspirin, statin, beta-ric. -Plan for further work up as an out patient Possible atrial fibrillation: -Currently in normal sinus rhythm. -Continue metoprolol and aspirin. Presumed COPD exacerbation: -Continue on bronchodilators. Multiplex PCR is negative. -On oral prednisone with tapering doses. -Antibiotics discontinued as procalcitonin normal -Continue on Breo Ellipta. Appreciate pulmonary input. History of lung cancer: -S/p radiation treatment. Hyperglycemia: -As expected with the steroids. Stable BPH with urinary retention: -Segundo catheter while hospitalized with ongoing diuresis. Continue on Flomax. -Discontinued Segundo catheter on discharge and resume self-catheterization at home Hyperlipidemia: -Continue on statin. Tolerating it well. Generalized weakness: -Home health RN and Bath Aide ordered Discharge date: Patient is doing well. His shortness of breath is stable. Denied any chest pain. No significant arrhythmia on the monitor. Patient was having a LifeVest placed. Discussed with Dr. Mujica who is okay for patient to be discharged to home. Patient had mildly elevated creatinine which need to be further followed as an outpatient with repeat labs. He is currently on Entresto and Lasix. Patient and family was updated that patient need to follow 2 g sodium diet, 40 ounce fluid restrictions and daily weights. Physical exam: Patient is alert, awake, oriented X 3 Vitals Temp BP Pulse RR SpO2 FIO2 Date Wt(kg) Wt(lb) 09/26 13:48 36.3 116/65 58 18 95 RA 09/26 93.7 206 09/26 13:39 36.3 116/65 58 18 95 RA 09/25 94.8 209 09/26 09:05 36.3 127/68 66 18 96 09/24 94.0 207 09/26 05:01 36 116/61 62 16 94 RA 09/22 95.5 210 09/25 19:00 36.6 118/50 85 16 94 RA 09/22 96.2 212 24 Hr Tmax: 36.6 at 09/25 19:00 36 Hr Tmax: 36.6 at 09/25 19:00 Vital Signs are the last 5 in the past 48 hours. Weights display the last 5 within 7 days. Initial Wt: 09/22 96.2 kg 212 lb SHEENT: Neck-supple, No JVD, Oral mucosa- moist Chest: No tenderness Lungs: Bilateral breath sounds heard. No wheezing or rales present CVS: S1, S2 heard. No murmurs. Regular in rate and rhythm Abdomen: soft, No tenderness present. Normal bowel sounds heard. Ext: Mild pedal edema . Labs: Laboratory 09/26/2022 04:40 [employer] SALES [employer]SULTANT Sodium 139 mmol/L Potassium 3.9 mmol/L BUN 55 mg/dL H Creatinine 1.4 mg/dL H Glucose 126 mg/dL H Calcium 8.9 mg/dL 09/25/2022 06:22 [employer] SALES [employer]SULTANT Creatinine 1.1 mg/dL Glucose 118 mg/dL H 09/24/2022 05:07 [employer] SALES CONSULTANT NT-proBNP 11,000 pg/mL 09/23/2022 04:30 [employer] SALES CONSULTANT WBC 6.8 K/uL Hemoglobin 14.6 g/dL Hematocrit 45.3 % Platelet 159 K/uL 09/23/2022 01:24 [employer] SALES [employer]ANT Troponin I 0.01 ng/mL 09/22/2022 21:04 [employer] SALES CONSULTANT Troponin I 0.02 ng/mL 09/22/2022 20:57 OUT[employer] SALES CONSULTANT UA Protein (Qual) 1+ UA WBC 11-25 /hpf 09/22/2022 20:47 [employer] SALES CONSULTANT Procalcitonin <0.08 ng/mL 09/22/2022 18:36 OUTB[employer] SALES CONSULTANT Troponin I 0.02 ng/mL NT-proBNP 7,350 pg/mL Procalcitonin <0.08 ng/mL Blood Culture NEG (In Progress) Blood Culture NEG (In Progress) Influenza A RNA Not Detected Influenza B RNA Not Detected RSV RNA Not Detected . Radiology: CT ANGIO PE PROTOCOL Event Date: 09/23/2022 10:32 OUTBOUND SALES CONSULTANT IMPRESSION: 1. No CT evidence of pulmonary embolus. 2. Increased soft tissue density in the medial right upper lobe at the site of prior radiation therapy which could be seen in the setting of tumor recurrence. 3. Small bilateral pleural effusions with bibasilar and lingular atelectasis, new compared to prior study. 4. Cardiac enlargement with reflux of contrast into the hepatic veins, findings which could be seen with heart failure. CHEST SINGLE VIEW Event Date: 09/22/2022 19:29 OUTBOUND SALES CONSULTANT IMPRESSION: 1. Previously noted right upper and mid lung opacities are less conspicuous on the current study. 2. Cardiac silhouette enlargement.. Cardiology: [facility] Echocardiogram Complete Event Date: 09/24/2022 12:47 OUTBOUND SALES CONSULTANT CONCLUSIONS: 1. Mildly dilated left ventricle. Severely depressed left ventricular systolic function. The left ventricular ejection fraction is measured by Bailey's biplane method at 25 %. Diastolic dysfunction present, cannot determine Diastolic Dysfunction Grade. 2. Moderately dilated right ventricle. Mild right ventricular hypokinesis. 3. Severely dilated left atrium. 4. Mildly dilated right atrium. 5. Normal appearance of the mitral valve leaflets. Mild to moderate mitral regurgitation. 6. No significant aortic stenosis or insufficiency. Trileaflet but assymetric aortic valve. 7. Normal appearance of the tricuspid valve. There is moderate tricuspid regurgitation. Right ventricular systolic pressure is consistent with mild pulmonary hypertension. The estimated Peak RVSP is 47 mmHg. . Discharge Summary Information: Admit Date: Admitted 09/22/2022. Discharge Date: Discharged 09/26/2022. Admitting physician: Binh Jiang M.D.. Consulting physician(s): Susan Montiel MD, Jeremie Mujica M.D.. Admitting diagnosis: Chest pain. Discharge diagnosis: Acute systolic and diastolic heart failure, chest pain, CAD possible atrial fibrillation, presumed COPD exacerbation, history of lung cancer, hyperlipidemia, BPH with urinary retention, hyperlipidemia, deconditioning.. Condition on Discharge: Improved. Disposition: Home, Home health. Discharge Plan from Discharge Orders: Active Care Orders - Ordered -- 09/26/2022 1132, Registered Nurse Active Care Orders - Ordered -- 09/26/2022 1132, Continue lifevest as instructed Diet: - Ordered -- 2GM Sodium diet Follow-up instructions post Discharge - Ordered -- Follow up Instructions: Follow up in 4 weeks, Susan Montiel MD Follow-up instructions post Discharge - Ordered -- Follow up Instructions: Follow up with, Luis Fernando Vo M.D., Special Instructions: Please follow-up with Dr. Vo October 10 at 11:[address] [facility]. If unable to keep appt, please call [phone]... Lab Orders after discharge: - Ordered -- 09/26/20221131, Lab(s) to Draw: Basic Metabolic Profile, Magnesium, Lab Draw Date: 10/01/22, PCP, Dr. Mujica Special Discharge Instructions - Ordered -- 09/26/20221131, Check weight daily--if there is increase in weight more than 3 lb in 1 day or 5 lb in 3 days--call Dr. Mujica for adjustment in medications., 09/26/20221131 Vital Signs: - Ordered -- 09/26/20221131, Every skilled visit. Discharge Medications: Discharge Medications acetaminophen: 650 mg = 1 tablet(s), Oral, [id number], PRN (pain, mild) albuterol: 2 puff(s), Inhalation, [id number], PRN (shortness of breath), Slow Breath inhale slowly and deeply allopurinol: 1 tablet(s), Oral, daily, FOR GOUT PREVENTION. aspirin: 81 mg = 1 tablet(s), Oral, daily cephalexin: 250 mg = 1 capsule(s), Oral, qhs fexofenadine: 180 mg = 1 tablet(s), Oral, daily fluticasone-salmeterol: 1 puff(s), Inhalation, bid furosemide: 40 mg = 1 tablet(s), Oral, daily metoprolol: 50 mg = 1 tablet(s), Oral, bid multivitamin: 1 tablet(s), Oral, daily omeprazole: 1 capsule(s), Oral, daily potassium chloride: 20 mEq = 2 tablet(s), Oral, daily predniSONE: Taper from 30 mg q3day by 10 mg till off, Oral, daily prochlorperazine: 10 mg = 1 tablet(s), Oral, [id number], PRN (nausea) rosuvastatin: 1 tablet(s), Oral, HS sacubitril-valsartan: 1 tablet(s), Oral, bid tamsulosin: 0.4 mg = 1 capsule(s), Oral, pm after dinner . Total discharge time spent: 34 min Future Appointments Appointment Date:10/10/2022 11:30:00 AM Scheduled Provider:Luis Fernando Vo M.D. Location:[facility] Appointment Type:ZANA GRIGGSE Established Patient Extended Appointment Date:11/06/2022 11:00:00 AM Scheduled Provider:Luis Fernando Vo M.D. Location:[facility] [address] Appointment Type:ZANA EPE Established Patient Extended Appointment Date:01/08/2023 11:15:00 AM Scheduled Provider:Susan Montiel MD Location:[facility] [address] Appointment Type:CPA EP Established Patient Functional Status 09/26/22 Activity Assistance Independent 09/23/22 ADLs Minimal assistance 09/22/22 Living Situation Home independently Immunizations Given and Recorded Vaccine Date Status [...] each, 10, 90, Route to Pharmacy Electronically, [facility] [address], [id number], 175, cm, 11/13/2021 1717, Height, 86.3, kg, 11/13/2021 1717, Weight Start Date: 01/22/22 Status: Ordered albuterol 90 mcg/inh inhaler 2 puff(s), Inhalation, [id number], PRN, 1 each, Inhaler, 3, 3, shortness of breath, Slow Breath inhaleslowly and deeply , Route to Pharmacy Electronically, [facility] [address] [facility], [id number], 175, cm, 07/25/2022 1145, Height, 97.... Start Date: 07/25/22 Status: Ordered allopurinol 100 mg oral tablet 1 tablet(s), Oral, daily, 90 tablet(s), 3, FOR GOUT PREVENTION., Route to Pharmacy Electronically, [facility], [id number], 175, cm, 07/25/2022 1145, Height, 97.5, kg, 07/25/2022 1145, Weight Start Date: 08/06/22 Status: Ordered aspirin 81 mg oral enteric coated tablet 81 mg, 1 tablet(s), Oral, daily, Tab EC, 0 Start Date: 11/08/17 Status: Ordered Entresto 49 mg-51 mg oral tablet 1 tablet(s), Oral, bid, 60 tablet(s), Tablet(s), 1, 1, Route to Pharmacy Electronically, [facility], [id number], 178, cm, 09/22/2022 2335, Height, 93.7, kg, 09/26/2022 0507, Weight Start Date: 09/26/22 Status: Ordered fexofenadine 180 mg oral tablet 180 mg, 1 tablet(s), Oral, daily, 30 tablet(s), Tablet(s), 0 Start Date: 11/08/17 Status: Ordered Flomax 0.4 mg oral capsule 0.4 mg, 1 capsule(s), Oral, pm after dinner, 90 capsule(s), Capsule(s), 0 Start Date: 04/10/19 Status: Ordered Keflex 250 mg oral capsule 250 mg, 1 capsule(s), Oral, qhs, 0 Start Date: 09/26/22 Status: Ordered Lasix 40 mg oral tablet 40 mg, 1 tablet(s), Oral, daily, 30 tablet(s), Tablet(s), 1, 1, Route to Pharmacy Electronically, [facility], [id number], 178, cm, 09/22/2022 2335, Height, 93.7, kg, 09/26/2022 0507, Weight Start Date: 09/26/22 Status: Ordered Metoprolol Tartrate 50 mg oral tablet 50 mg, 1 tablet(s), Oral, bid, 60 tablet(s), Tablet(s), 1, 1, Route to Pharmacy Electronically, [facility], [id number], 178, cm, 09/22/2022 2335, Height, 93.7, kg, 09/26/2022 0507, Weight Start Date: 09/26/22 Status: Ordered Multivitamin oral tablet 1 tablet(s), Oral, daily, 30 tablet(s), 0 Start Date: 11/12/12 Status: Ordered omeprazole 20 mg oral delayed release capsule 1 capsule(s), Oral, daily, 90 capsule(s), 3, 0, Route to Pharmacy Electronically, [facility]ORE [address], [id number], 175, cm, 05/30/2021 0910, Height, 92.7, kg, 05/30/2021 0910, Weight Start Date: 09/25/21 Status: Ordered Potassium Chloride (Eqv-K-Tab) 10 mEq oral tablet, extended release 20 mEq, 2 tablet(s), Oral, daily, 60 tablet(s), 0, 0, Route to Pharmacy Electronically, [facility], [id number], 178, cm, 09/22/2022 2335, Height, 93.7,kg, 09/26/2022 0507, Weight Start Date: 09/26/22 Status: Ordered predniSONE 10 mg oral tablet Taper from 30 mg q3day by 10 mg till off, Oral, daily, 18 tablet(s), 0, 0, Route to Pharmacy Electronically, [facility], [id number], 178, cm, 09/22/2022 2335, Height, 93.7, kg, 09/26/2022 0507, Weight Start Date: 09/26/22 Stop Date: 10/05/22 Status: Ordered prochlorperazine 10 mg oral tablet 10 mg, 1 tablet(s), Oral, [id number], PRN, 30 each, Tablet(s), 1, 1, nausea, Route to Pharmacy Electronically, [facility] [address] [facility], [id number], 175, cm, 08/07/2022 1308, Height, 97, kg, 08/07/2022 1308, Weight Start Date: 08/16/22 Stop Date: 10/15/22 Status: Ordered rosuvastatin 20 mg oral tablet 1 tablet(s), Oral, HS, 90 tablet(s), 3, Route to Pharmacy Electronically, [facility], [id number], 175.26, cm, 04/26/2022 0917, Height, 97.7, kg, 04/26/2022 0917, Weight Start Date: 05/29/22 Status: Ordered Tylenol 8 HR Arthritis Pain 650 mg oral tablet, extended release 650 mg, 1 tablet(s), Oral, [id number], PRN, 0, pain, mild Start Date: 09/25/22 Status: Ordered Mental Status 09/26/22 Orientation_ND Oriented x4 Hearing Impairment Hard of hearing Vision Impairment None 09/22/22 Orientation Oriented x 4 Problem List Condition Confirmation Course Effective Dates Status H ealth Status Informant Asthma Confirmed Active ASHD (arteriosclerotic heart disease) I25.10 Confirmed Active COPD (chronic obstructive pulmonary disease) Confirmed Active Acute exacerbation of chronic obstructive airways disease J44.1 Confirmed Active COPD (chronic obstructive pulmonary disease) J44.9 Confirmed Active Coronary arteriosclerosis in [place] artery Confirmed Active HTN (hypertension) I10 Confirmed Active Acid reflux disease Confirmed Active Gout Confirmed Active High cholesterol Confirmed Active Hyperplasia of prostate Confirmed Active High blood pressure Confirmed Active Kidney stone Confirmed Active Cataract Confirmed Active Lesion of lung Confirmed Active Nocturia 1 Confirmed Active Bulging lumbar disc Confirmed Active Elevated cholesterol E78.00 Confirmed Active Asthma J45.909 Confirmed Active Urinary incontinence Confirmed Active 1frequency Diagnosis Diagnosis Type Effective Dates Health Status Clinical Service Informant Encounter for other specified special examinations 09/22/22 Non-Specified Procedures Procedure Date Related Diagnosis Body Site Status 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 Completed CE - Cataract extraction Completed Hip arthroplasty 2 Comple chiara lumbar back surg 04/2010 C ompleted Prostate implantation Com pleted [id number] 2left Results Laboratory List Name Date Glucose (POC) 09/26/22 Glucose (POC) 09/26/22 Basic Metabolic Profile (BMP) 09/26/22 Magnesium Level 09/26/22 Uric Acid 09/26/22 Glucose (POC) 09/25/22 Basic Metabolic Profile (BMP) 09/25/22 Magnesium Level 09/25/22 Basic Metabolic Profile (BMP) 09/24/22 Magnesium Level 09/24/22 NT-proBNP (NTpro BNP) 09/24/22 Procalcitonin 09/24/22 CBC with Differential 09/23/22 Comprehensive Metabolic Profile (CMP) Differential, Automated 09/23/22 Phosphorus Level 09/23/22 Troponin-I 09/23/22 Troponin-I 09/22/22 Urinalysis w/ Reflex to Microscopic 09/04 07/26 Procalcitonin (ADD ON - Procalcitonin) 1 11/22/21 CBC with Differential 09/22/22 Comprehensive Metabolic Profile 09/22/22 Differential, Automated 09/22/22 Lactic Acid 09/22/22 NT-proBNP (BNP, NT-Pro (NT-proBNP)-[facility]) 09/22/22 PT/INR 09/22/22 PTT 09/22/22 Procalcitonin 09/22/22 Troponin-I 09/22/22 Urine Microscopic 09/22/22 Most recent to oldest [Reference Range]: 1 2 3 Albumin [3.5-5.0 g/dL] 3.4 g/dL *L* (09/23/22 4:30 AM) 3.7 g/dL (09/22/22 6:36 PM) Alk Phos [38-126 U/L] 100 U/L (09/23/22 4:30 AM) 118 U/L (09/22/22 6:36 PM) BUN [9-20 mg/dL] 55 mg/dL *H* (09/26/22 4:40 AM) 42 mg/dL *H* (09/25/22 6:22 AM) 38 mg/dL *H* (09/24/22 5:07 AM) Calcium [8.4-10.2 mg/dL] 8.9 mg/dL (09/26/22 4:40 AM) 8.7 mg/dL (09/25/22 6:22 AM) 9.5 mg/dL (09/24/22 5:07 AM) Chloride [98-107 mmol/L] 101 mmol/L (09/26/22 4:40 AM) 106 mmol/L (09/25/22 6:22 AM) 107 mmol/L (09/24/22 5:07 AM) CO2 [22-30 mmol/L] 33 mmol/L *H* (09/26/22 4:40 AM) 28 mmol/L (09/25/22 6:22 AM) 24 mmol/L (09/24/22 5:07 AM) Glucose [74-106 mg/dL] 126 mg/dL *H* (09/26/22 4:40 AM) 118 mg/dL *H* (09/25/22 6:22 AM) 165 mg/dL *H* (09/24/22 5:07 AM) Magnesium [1.6-2.6 mg/dL] 1.9 mg/dL (09/26/22 4:40 AM) 1.9 mg/dL (09/25/22 6:22 AM) 1.8 mg/dL (09/24/22 5:07 AM) Glucose (POC) [65-110 mg/dL] 184 mg/dL *H* (09/26/22 12:57 PM) 117 mg/dL *H* (09/26/22 8:39 AM) 170 mg/dL *H* (09/25/22 5:11 PM) Phosphorus [2.5-4.5 mg/dL] 3.3 mg/dL (09/23/22 4:30 AM) Potassium [3.5-4.9 mmol/L] 3.9 mmol/L (09/26/22 4:40 AM) 3.6 mmol/L (09/25/22 6:22 AM) 4.0 mmol/L (09/24/22 5:07 AM) Sodium [137-145 mmol/L] 139 mmol/L (09/26/22 4:40 AM) 139 mmol/L (09/25/22 6:22 AM) 139 mmol/L (09/24/22 5:07 AM) Protein, Total [6.5-8.6 g/dL] 6.2 g/dL *L* (09/23/22 4:30 AM) 6.6 g/dL (09/22/22 6:36 PM) Troponin I 0.01 ng/mL (09/23/22 1:24 AM) 0.02 ng/mL (09/22/22 9:04 PM) 0.02 ng/mL (09/22/22 6:36 PM) Uric Acid [3.5-8.5 mg/dL] 8.2 mg/dL (09/26/22 4:40 AM) Baso # [0.0-0.2 K/uL] 0.0 K/uL (09/23/22 4:30 AM) 0.0 K/uL (09/22/22 6:36 PM) Eos # [0.0-0.7 K/uL] 0.0 K/uL (09/23/22 4:30 AM) 0.2 K/uL (09/22/22 6:36 PM) Hematocrit [40.0-48.0 %] 45.3 % (09/23/22 4:30 AM) 45.7 % (09/22/22 6:36 PM) Lymph % 7 % (09/23/22 4:30 AM) 18 % (09/22/22 6:36 PM) Lymph # [0.7-4.5 K/uL] 0.5 K/uL *L* (09/23/22 4:30 AM) 1.2 K/uL (09/22/22 6:36 PM) MCHC [31.5-35.5 g/dL] 32.2 g/dL (09/23/22 4:30 AM) 32.6 g/dL (09/22/22 6:36 PM) MCH [27.2-32.6 pg] 30.1 pg (09/23/22 4:30 AM) 30.0 pg (09/22/22 6:36 PM) MCV [82.0-99.0 fL] 93.4 fL (09/23/22 4:30 AM) 92.1 fL (09/22/22 6:36 PM) [place] # [0.1-1.3 K/uL] 0.0 K/uL *L* (09/23/22 4:30 AM) 0.6 K/uL (09/22/22 6:36 PM) MPV [9.3-12.4 fL] 11.5 fL (09/23/22 4:30 AM) 11.0 fL (09/22/22 6:36 PM) Neutro # [1.9-7.0 K/uL] 6.2 K/uL (09/23/22 4:30 AM) 4.8 K/uL (09/22/22 6:36 PM) Platelet [140-350 K/uL] 159 K/uL (09/23/22 4:30 AM) 169 K/uL (09/22/22 6:36 PM) RBC [4.50-5.40 M/uL] 4.85 M/uL (09/23/22 4:30 AM) 4.96 M/uL (09/22/22 6:36 PM) RDW [11.5-14.5 %] 13.2 % (09/23/22 4:30 AM) 13.3 % (09/22/22 6:36 PM) WBC [4.3-10.0 K/uL] 6.8 K/uL (09/23/22 4:30 AM) 7.0 K/uL (09/22/22 6:36 PM) INR [0.9-1.1] 1.1 (09/22/22 6:36 PM) Protime (PT) [11.9-14.9 sec] 14.3 sec (09/22/22 6:36 PM) PTT [23.0-34.0 sec] 29.2 sec (09/22/22 6:36 PM) Neutro % 92 % (09/23/22 4:30 AM) 69 % (09/22/22 6:36 PM) [place] % 1 % (09/23/22 4:30 AM) 9 % (09/22/22 6:36 PM) Eos % 0 % (09/23/22 4:30 AM) 4 % (09/22/22 6:36 PM) Baso % 0 % (09/23/22 4:30 AM) 1 % (09/22/22 6:36 PM) Nucleated RBCs [0-0 %] 0 % (09/23/22 4:30 AM) 0 % (09/22/22 6:36 PM) UA Blood [Negative] Trace *(A)* (09/22/22 8:57 PM) UA WBC [<3 /hpf] 11-25 /hpf *(A)* (09/22/22 8:57 PM) UA RBC [<3 /hpf] 6-10 /hpf *(A)* (09/22/22 8:57 PM) AST [14-54 U/L] 35 U/L (09/23/22 4:30 AM) 32 U/L (09/22/22 6:36 PM) Bilirubin, Total [0.2-1.3 mg/dL] 0.3 mg/dL (09/23/22 4:30 AM) 0.5 mg/dL (09/22/22 6:36 PM) Creatinine [0.7-1.3 mg/dL] 1.4 mg/dL *H* (09/26/22 4:40 AM) 1.1 mg/dL (09/25/22 6:22 AM) 1.1 mg/dL (09/24/22 5:07 AM) Hemoglobin [13.6-16.5 g/dL] 14.6 g/dL (09/23/22 4:30 AM) 14.9 g/dL (09/22/22 6:36 PM) eGFR(4vMDRD) [>=60 mL/min/1.73m2] 49 mL/min/1.73m2 *L* (09/26/22 4:40 AM) >60 mL/min/1.73m2 (09/25/22 6:22 AM) >60 mL/min/1.73m2 (09/24/22 5:07 AM) eCrCl(C-Gault) 0.5 mL/min/kg (09/26/22 4:40 AM) 0.7 mL/min/kg (09/25/22 6:22 AM) 0.7 mL/min/kg (09/24/22 5:07 AM) Immature Gran % [0.0-0.5 %] 0.6 % *H* (09/23/22 4:30 AM) 0.3 % (09/22/22 6:36 PM) NT-proBNP 94795 pg/mL (09/24/22 5:07 AM) 7350 pg/mL (09/22/22 6:36 PM) Squamous Epithelial Cells [None seen /hpf] Occasional /hpf *(A)* (09/22/22 8:57 PM) UA Bilirubin [Negative] Negative (09/22/22 8:57 PM) UA Clarity [Clear] Clear (09/22/22 8:57 PM) UA Color [Straw] Yellow (09/22/22 8:57 PM) Differential Type Automated (09/23/22 4:30 AM) Automated (09/22/22 6:36 PM) UA Glucose (Qual) [Negative] Negative (09/22/22 8:57 PM) UA Ketones [Negative] Negative (09/22/22 8:57 PM) UA Leukocyte Esterase [Negative] Trace *(A)* (09/22/22 8:57 PM) UA Mucus [None seen /lpf] Trace /lpf *(A)* (09/22/22 8:57 PM) UA Nitrite [Negative] Negative (09/22/22 8:57 PM) UA Specific [place] [1.005-1.030] 1.028 (09/22/22 8:57 PM) UA pH [5.0-8.0] 5.5 (09/22/22 8:57 PM) UA Protein (Qual) [Negative] 1+ *(A)* (09/22/22 8:57 PM) UA Urobilinogen [Negative] Negative (09/22/22 8:57 PM) Anion Gap [7-16 mmol/L] 5 mmol/L *L* (09/26/22 4:40 AM) 5 mmol/L *L* (09/25/22 6:22 AM) 8 mmol/L (09/24/22 5:07 AM) Procalcitonin 0.08 ng/mL (09/24/22 5:07 AM) <0.08 ng/mL (09/22/22 8:47 PM) <0.08 ng/mL (09/22/22 6:36 PM) Lactic Acid [0.7-2.1 mmol/L] 1.1 mmol/L (09/22/22 6:36 PM) ALT [<=50 U/L] 20 U/L (09/23/22 4:30 AM) 18 U/L (09/22/22 6:36 PM) Orders for Microbiology Reports Name Date Blood Culture 09/22/22 Blood Culture 09/22/22 Microbiology Reports TEST:Blood Culture STATUS:Order in Progress BODY SITE: SOURCE:Blood COLLECTED DATE/TIME:09/22/22 6:36 PM PRELIMINARY REPORT No growth at 4 days. TEST:Blood Culture STATUS:Order in Progress BODY SITE: SOURCE:Blood COLLECTED DATE/TIME:09/22/22 6:36 PM PRELIMINARY REPORT No growth at 4 days. 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 3D reconstructions were performed on an independent workstation under concurrent physician supervision. Omnipaque-350 69 mL IV was given without complication. Serum creatinine on 09/23/2022 is 0.9 mg/dL with estimated glomerular filtration rate of >60 mL/min/1.73 sq m. Radiation exposure as measured by the dose length product (DLP) is 222 mGy-cm. CT dose-lowering technique was utilized. Comparison to noncontrast chest CT on 01/24/2022. There are small bilateral pleural effusions with bibasilar and lingular atelectasis, new compared to prior study. There is increased soft tissue density in the medial aspect of the right upper lobe (series 7, image #[id number]). No pneumothorax. The heart is mildly enlarged. No pericardial effusion. There is atherosclerosis of the coronary arteries, thoracic aorta, and proximal great vessels. No thoracic aortic aneurysm. No CT evidence of pulmonary embolus. No axillary lymphadenopathy. Prominent mediastinal lymph nodes appear unchanged compared to prior study. No hilar lymphadenopathy. There is reflux of contrast into the hepatic veins. There is a healed median sternotomy. 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 3-D images confirm the above vascular findings. IMPRESSION: 1. No CT evidence of pulmonary embolus. 2. Increased soft tissue density in the medial right upper lobe at the site of prior radiation therapy which could be seen in the setting of tumor recurrence. 3. Small bilateral pleural effusions with bibasilar and lingular atelectasis, new compared to prior study. 4. Cardiac enlargement with reflux of contrast into the hepatic veins, findings which could be seen with heart failure. . Dictating Physician: Natty Car MD Releasing Physician: Natty Car MD Signature Electronically Authorized Authorized Date/Time: 23-SEP-2022 10:54 am * Exam Date Time Procedure Performing Provider Status 09/22/22 7:29 PM CHEST SINGLE VIEW Cristi Alejo End Finder Forming Department; Auth (Verified) Notes: (CHEST SINGLE VIEW) Reason For Exam: Sepsis CHEST SINGLE VIEW EXAMINATION: Chest radiograph, single view HISTORY: Sepsis, lung cancer FINDINGS: Comparison to chest CT on 01/24/2022, and chest radiograph on 02/24/2019. The right anteromedial upper lobe density is not well demonstrated on radiographs. Right mid lung opacity with central lucency on prior chest radiograph is less conspicuous on the current study. No new pulmonary infiltrate or pulmonary nodule. No pleural effusion or pneumothorax. Left basilar atelectasis versus scarring is unchanged. 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 The cardiac silhouette is enlarged. There is atherosclerosis of the thoracic aorta. There are bilateral full-thickness rotator cuff tears with glenohumeral joint osteoarthritis. IMPRESSION: 1. Previously noted right upper and mid lung opacities are less conspicuous on the current study. 2. Cardiac silhouette enlargement. . Dictating Physician: Natty Car MD Releasing Physician: Natty Car MD Signature Electronically Authorized Authorized Date/Time: 22-SEP-2022 07:34 pm Vital Signs Most recent to oldest [Reference Range]: 1 2 3 Temperature Temporal Artery [35.8-38 DegC] 36.3 DegC (09/26/22 1:48 PM) 36.3 DegC (09/26/22 1:39 PM) 36.3 DegC (09/26/22 9:05 AM) Peripheral Pulse Rate [60-100 bpm] 58 bpm *L* (09/26/22 1:48 PM) 58 bpm *L* (09/26/22 1:39 PM) 66 bpm (09/26/22 9:05 AM) Respiratory Rate [14-22 br/min] 18 br/min (09/26/22 1:48 PM) 18 br/min (09/26/22 1:39 PM) 18 br/min (09/26/22 9:05 AM) Blood Pressure [89-139/60-90 mm Hg] 116/65mm Hg (09/26/22 1:48 PM) 116/65mm Hg (09/26/22 1:39 PM) 127/68mm Hg (09/26/22 9:05 AM) Oxygen Therapy Room air (09/26/22 1:48 PM) Room air (09/26/22 1:39 PM) Room air (09/26/22 9:05 AM) Oxygen Flow Rate 0 L/min (09/22/22 11:45 PM) SpO2 96 % (09/23/22 6:56 AM) 96 % (09/22/22 11:45 PM) Height 178 cm (09/22/22 11:35 PM) 178 cm (09/22/22 5:43 PM) Weight 93.7 kg (09/26/22 5:07 AM) 94.8 kg (09/25/22 9:41 AM) 94.0 kg (09/24/22 2:00 AM) Social History Social History Type Response Alcohol Current every day al cohol user, Liquor, Daily, 1 drink Substance Abuse Never drug user Smoking Status Former smoker;Never; Tobacco Cessation Counseling Requested N/A; Type: Cigarettes; Stopped at age: 55; entered on: 07/25/22 Sex Hospital Discharge Instructions Patient Education 09/26/2022 11:43:11 What is COPD? What Is COPD? COPD stands for chronic obstructive pulmonary disease. It means the airways in your lungs are blocked (obstructed). This makes it hard to breathe.??You may have trouble with daily activities because of shortness of breath. Over time the shortness of breath often gets worse. This makes it harder to take care of yourself and take part in activities. Chronic bronchitis and emphysema are 2 common types of COPD. How did I get COPD? Most people get COPD from smoking. Cigarette smoke damages lungs. This can develop into COPD over many years. How COPD affects you COPD makes you work harder to breathe. Air may get trapped in the lungs. This prevents your lungs from filling completely with fresh oxygen-filled air when you breathe in (inhale). It's harder to take deep breaths, especially when you are active and start breathing faster. Over time your lungs may become enlarged, filled with air that does not transfer oxygen into the blood. These problems lead to shortness of breath (also called dyspnea). Hoarse, whistling breathing (wheezing) and a chronic cough are common. So is feeling tired and worn out (fatigue).?? What happens in chronic bronchitis? The cells in the airways make more mucus than normal. The mucus builds up, narrowing the airways. This means less air travels into and out of the lungs. The lining of the airways may also become swollen (inflamed). This causes the airways to narrow even more. What happens in emphysema? The small airways are damaged and lose their stretchiness. The airways collapse when you exhale. This causes air to get trapped in the air sacs. This means that less oxygen enters the blood vessels. And less oxygen is delivered to all of the cells of your body. This makes it hard to breathe. Damage to cilia Cilia are small hairs that line and protect the airways. Smoking damages the cilia. Damaged cilia can???t sweep mucus and particles away. Some of the cilia are destroyed. This damage makes COPD worse. ?? [id number] [employer] All rights reserved. This information is not intended as a substitute for professional medical care. Always follow your healthcare professional's instructions. Note * Hermes Stewart RN Care Manager: PERFORM Event Display: Transition Planning Ongoing - Text Authored Date: [id number] Transition Planning Ongoing Assessment Entered On: 09/26/2022 15:27 OUTBOUND SALES CONSULTANT Performed On: 09/26/2022 15:27 OUTBOUND SALES CONSULTANT by Hermes Stewart RN Care Manager Discharge Planning Daily Note Discharge Arrangements : Patient Post-Acute Information Patient Name: BAM SMALL [facility]: [id number] Gender: Male : 35 Age: 86 Years No Post-Acute Placement(s) Listed No Post-Acute Service(s) Listed Anticipated Discharge Needs RTF : DISCHARGE PLAN/NEEDS:No discharge data available. EQUIPMENT/TREATMENT NEEDS:No discharge data available. Home Caregiver Identification : Patient identifies a Caregiver Home Caregiver Name/Relationship : BRANDY SMALL (SPOUSE) Home Caregiver Hermes Stewart residence hall director - 09/26/2022 15:27 OUTBOUND SALES CONSULTANT Discharge Disposition CM Discharge Disposition : Home with new skilled home health services (06) Hermes Stewart residence hall director - 09/26/2022 15:27 OUTBOUND SALES CONSULTANT * Ayana Malloy RN: PERFORM Event Display: Vital Signs at Discharge - Text Authored Date: Vital Signs at Discharge Entered On: 09/26/2022 13:48 OUTBOUND SALES CONSULTANT Performed On: 09/26/2022 13:48 OUTBOUND SALES CONSULTANT by Ayana Malloy RN Vital Signs Temperature Temporal Artery : 36.3 DegC(Converted to: 97.3 DegF) Peripheral Pulse Rate : 58 bpm (L) Respiratory Rate : 18 br/min Systolic Blood Pressure : 116 mm Hg Diastolic Blood Pressure : 65 mm Hg Oxygen Therapy : Room air Oxygen Saturation : 95 % Present Pain Score : 0 Ayana Malloy RN - 09/26/2022 13:48 OUTBOUND SALES CONSULTANT * Cecelia Banks Clinical Mental Health Associate: PERFORM Event Display: Pharmacy Clinical Note Authored Date: Reviewed medication list prior to patient discharge. Medication changes this admission included: New Additions: ??furosemide 40 mg daily metoprolol tartrate 50 mg BID potassium chloride 20 mEq daily Entresto 49/51 mg BID prednisone taper from 30 mg daily, decrease by 10 mg every 3 days until off Discontinuations: hydrochlorothiazide naproxen Counseled the patient regarding all changes, including indication, directions, and potential side effects of new therapies. Provided with prednisone taper calendar. Patient was using naproxen (Aleve)as needed for pain, encouraged to use Tylenol instead. Arranged for prescriptions to be filled and delivered by [facility] retail pharmacy. Informed of likely calls from the Outpatient CM team post-discharge. The best number to reach the patient is their landline, . The patient and his family members expressed understanding of the information provided and all questions were answered. * Cecelia Banks Clinical Mental Health Associate: PERFORM Event Display: Pharmacy Clinical Note Authored Date: Spoke with Dr. Jiang and readded patient's home Keflex, which he is on chronically once daily asprescribed by his outpatient urologist. * Hermes Stewart RN Care Manager: PERFORM Event Display: Transition Planning Ongoing - Text Authored Date: Transition Planning Ongoing Assessment Entered On: 09/26/2022 12:08 OUTBOUND SALES CONSULTANT Performed On: 09/26/2022 11:57 OUTBOUND SALES CONSULTANT by Hermes Stewart RN Care Manager Discharge Planning Daily Note Discharge Arrangements : Patient Post-Acute Information Patient Name: BAM SMALL Gender: Male : 35 Age: 86 Years No Post-Acute Placement(s) Listed No Post-Acute Service(s) Listed Anticipated Discharge Needs RTF : DISCHARGE PLAN/NEEDS:No discharge data available. EQUIPMENT/TREATMENT NEEDS:No discharge data available. Home Caregiver Identification : Patient identifies a Caregiver Home Caregiver Name/Relationship : BRANDY SMALL (SPOUSE) Home Caregiver Hermes Stewart RN Care Manager - 09/26/2022 11:57 OUTBOUND SALES CONSULTANT CM Ongoing Narrative Note Ongoing Discharge Planning Note : 09/25/22 Hermes Toribio RN, CM admit: SOB, COPD exacerbation, Afib, acute on chronic CHF Pt has no needs upon discharge regarding therapy; however, [facility] has been ordered for pt. DARIAN hasbeen in communication with Darlene from [facility]. Documents had to be faxed b/c [employer] option did notgo through after 2 attempts. CM will follow up to ensure [facility] was set up successfully. 09/26/22 Hermes Toribio RN, CM D/t pt going home with [facility], Dr. Jiang would like to order RN. Also, pt/family tells md dennis terrell would be helpful. CM spoke with pt/family at bedside. [facility] is here fitting pt. I sent referrals. Jd accepted; I spoke with Shirley, who will visit pt/family in pt's room prior to discharge. Floor RN Ayana notified. Hermes Stewart RN Care Manager - 09/26/2022 11:57 OUTBOUND SALES CONSULTANT * Ayana Malloy RN: PERFORM Event Display: Nursing Discharge Instructions - Text Authored Date: Nursing Discharge Instructions Entered On: 09/26/2022 11:42 OUTBOUND SALES CONSULTANT Performed On: 09/26/2022 11:42 OUTBOUND SALES CONSULTANT by Ayana Malloy RN Patient Discharge Location Discharge Location IP : Home Discharge Location IP Home : Yes Ayana Malloy RN - 09/26/2022 11:42 OUTBOUND SALES CONSULTANT Home Discharge Instructions Inpatient/Observation Instructions : After you leave the hospital, you may call the Nursing Unit within 24 hours of your discharge if you have any questions about these instructions. If any medical problems occur or your symptoms get worse, call your doctor immediately. Inpatient/Observation Instructions Freetext : After you leave the hospital, you may call the Nursing Unit within 24 hours of your discharge if you have any questions about these instructions. In any medical problems occur or your systems get worse, or you have questions, call your doctor immediately Patient Home Medications Returned : No home medications Nursing Unit Phone Number : [phone] Wound Measured at Discharge : N/A Diet After Discharge : Low Sodium (No Added Salt or 2 gram sodium), Low Fat/Low Cholesterol or Heart Healthy Discharge Medication Planning : Discharge Medication Information provided, Medication Side Effects Information explained and provided, Ability to obtain prescribed medication confirmed, Due to medications you have received, you should not drive a vehicle or operate machinery for 24 hours Ayana Malloy RN - 09/26/2022 11:42 OUTBOUND SALES CONSULTANT * Event Display: Phone Message/Call Authored Date: [id number] From: Garland Haywood MD To: Ines Urban [place]; Maliha Porter Coordinator; Sent: 09/26/2022 09:05 OUTBOUND SALES CONSULTANT Needs follow up in the office after his echo in 3 months. thank you, KK * Pat, Hermes A residence hall director: PERFORM Event Display: Transition Planning Ongoing - Text Authored Date: [id number] Transition Planning Ongoing Assessment Entered On: 09/25/2022 15:31 OUTBOUND SALES CONSULTANT Performed On: 09/25/2022 15:27 OUTBOUND SALES CONSULTANT by Hermes Stewart residence hall director Discharge Planning Daily Note Discharge Arrangements : Patient Post-Acute Information Patient Name: BAM SMALL Gender: Male : 35 Age: 86 Years No Post-Acute Placement(s) Listed No Post-Acute Service(s) Listed Anticipated Discharge Needs RTF : DISCHARGE PLAN/NEEDS:No discharge data available. EQUIPMENT/TREATMENT NEEDS:No discharge data available. Home Caregiver Identification : Patient identifies a Caregiver Home Caregiver Name/Relationship : BRANDY SMALL (SPOUSE) Home Caregiver Hermes Stewart RN Care Manager - 09/25/2022 15:27 OUTBOUND SALES CONSULTANT CM Ongoing Narrative Note Ongoing Discharge Planning Note : 09/25/22 Hermes Toribio RN CM admit: SOB, COPD exacerbation, Afib, acute on chronic CHF Pt has no needs upon discharge regarding therapy; however, [facility] has been ordered for pt. CM hasbeen in communication with Darlene from [facility]. Documents had to be faxed b/c [employer] option did notgo through after 2 attempts. CM will follow up to ensure [facility] was set up successfully. Hermes Stewart RN Care Manager - 09/25/2022 15:27 OUTBOUND SALES CONSULTANT * Cecelia Banks Clinical Mental Health Associate: PERFORM Event Display: Medication History Documentation - Text Authored Date: [id number] Pharmacy Clinical Interventions Entered On: 09/25/2022 13:23 OUTBOUND SALES CONSULTANT Performed On: 09/25/2022 13:20 OUTBOUND SALES CONSULTANT by Cecelia Banks Clinical Mental Health Associate Medication History Documentation Reviewed Medications : Patient Patient Had Medication List : Yes Medication Changes : - Removed duplicate albuterol - Removed old prednisone taper - Added directions to acetaminophen Patients Preferred Pharmacy : [facility] in [place], [place] Pharmacy Comments : Spoke with the patient during admission regarding his home medications. Patientreports managing his own medications at home. He did have a list with him, which was mostly up to date. This was compared with [facility] fill history. Updates made were minor, as noted above. Cecelia Banks Clinical Mental Health Associate - 09/25/2022 13:20 OUTBOUND SALES CONSULTANT * Nawaf Membreno DPT: PERFORM Event Display: PT Progress Note - Text Authored Date: [id number] PT Progress Note Entered On: 09/24/2022 13:45 OUTBOUND SALES CONSULTANT Performed On: 09/24/2022 13:44 OUTBOUND SALES CONSULTANT by Nawaf Membreno DPT PT Progress Note Physical Therapy Contact Status : Patient seen for a limited visit. PT Progress Note : Attempted evaluation, Pt states that he is independent with mobility and has been up ad jessica in his room and hallway. Will reach out for therapy if he feels like his mobility declines. Will d/c orders per Pts wishes. Nawaf Membreno DPT - 09/24/2022 13:44 OUTBOUND SALES CONSULTANT * Socorro Welsh OT: PERFORM Event Display: OT Progress Note - Text Authored Date: [id number] OT Progress Note Entered On: 09/24/2022 13:45 OUTBOUND SALES CONSULTANT Performed On: 09/24/2022 13:39 OUTBOUND SALES CONSULTANT by Socorro Welsh OT OT Progress Note Occupational Therapy Contact Status : Patient seen for a limited visit. OT Progress Note : Chart reviewed. Pt. educated on role/purpose of OT in acute care setting, reported he has been up independently to/from bathroom since admission, reported he has also been walking in the hallway. R.N. (Mercedes) confirmed he is ambulating in the hallway. Pt. denied any needs/concerns for skilled OT at this time, understands to ask for new orders if any needs change/arise during hospitalization. Encouraged to continue ambulation to maintain strength/independence. Will discontinueOT orders per pt. request. Socorro Welsh OT - 09/24/2022 13:39 OUTBOUND SALES CONSULTANT * Mine Kelley RN, RVT: PERFORM Event Display: Vascular Lab-Preliminary Authored Date: [id number] Vascular Lab-Preliminary Entered On: 09/24/2022 11:26 OUTBOUND SALES CONSULTANT Performed On: 09/24/2022 11:25 OUTBOUND SALES CONSULTANT by Mine Kelley RN, RVT Vascular Lab Preliminary Vascular Lab Exam Performed : Bilateral lower extremity venous duplex scan. Vascular Lab Preliminary Report : Negative for DVT. FINAL REPORT TO FOLLOW : . Exam Performed By : Mine Kelley RN, RVT Mine Kelley RN, RVT - 09/24/2022 11:25 OUTBOUND SALES CONSULTANT * Event Display: Vascular Lab * Angy Limon OT: PERFORM Event Display: OT Cancellation Note Authored Date: [id number] OT Cancellation Note Entered On: 09/24/2022 09:03 OUTBOUND SALES CONSULTANT Performed On: 09/24/2022 09:02 OUTBOUND SALES CONSULTANT by Angy Limon OT OT Cancellation Occupational Therapy Cancellation Status : Treatment session cancelled this attempt, will reattemptwhen appropriate. Therapy Services Cancel/Hold Reason : Other: LE dopplars pending Angy Limon OT - 09/24/2022 09:02 OUTBOUND SALES CONSULTANT * Anayeli Olivia Physical Therapist: PERFORM Event Display: PT Cancellation Note Authored Date: [id number] PT Cancellation Note Entered On: 09/24/2022 08:56 OUTBOUND SALES CONSULTANT Performed On: 09/24/2022 08:56 OUTBOUND SALES CONSULTANT by Anayeli Olivia Physical Therapist PT Cancellation Physical Therapy Cancellation Status : Treatment session cancelled this attempt, will reattempt when appropriate. Therapy Services Cancel/Hold Reason : Other: awaiting results of doppler study; will continue to attempt Anayeli Olivia Physical Therapist - 09/24/2022 08:56 OUTBOUND SALES CONSULTANT * Mindi Davalos CAFETERIA WORKER: PERFORM Event Display: Disease Management Education - Text Authored Date: [id number] Disease Management Education Entered On: 09/24/2022 08:24 OUTBOUND SALES CONSULTANT Performed On: 09/24/2022 08:24 OUTBOUND SALES CONSULTANT by Mindi Davalos CAFETERIA WORKER Disease Management Education Inhaler Technique : Correct Home Medications : Advair BID Albuterol MDI PRN Pneumococcal/Flu Vaccines Up to Date : Influenza, Pneumonia Emergency Plan ([place]) : Discussed Follow Up Appt (1 to 2 weeks) : Discussed Antibiotics - Therapy : Discussed Mindi Davalos CAFETERIA WORKER - 09/24/2022 08:27 OUTBOUND SALES CONSULTANT Disease Management Education Provided : COPD Mindi Davalos CAFETERIA WORKER - 09/24/2022 08:24 OUTBOUND SALES CONSULTANT Education Topics : Plan of care Individuals Taught RT : Patient Barriers to Learning RT : None evident Teaching Method RT : Printed materials Mindi Davalos CAFETERIA WORKER - 09/24/2022 08:27 OUTBOUND SALES CONSULTANT * Maria Antonia Gonsales CAFETERIA WORKER: PERFORM Event Display: RT Aerosol Therapy-MDI/Inhaler - Text Authored Date: RT Aerosol Therapy - MDI/Inhaler Entered On: 09/23/2022 20:05 OUTBOUND SALES CONSULTANT Performed On: 09/23/2022 20:04 OUTBOUND SALES CONSULTANT by Maria Antonia Gonsales CAFETERIA WORKER RT Treatment Assessment Peripheral Pulse Rate : 72 bpm Respiratory Rate : 18 br/min All Lobes Breath Sounds : Diminished Oxygen Therapy : Simple mask Maria Antonia Gonsales CAFETERIA WORKER - 09/23/2022 20:04 OUTBOUND SALES CONSULTANT Aerosol Therapy - MDI RT Charge - MDI : Subsequent Aerosol Treatment Route : Spacer Maria Antonia Gonsales CAFETERIA WORKER - 09/23/2022 20:04 OUTBOUND SALES CONSULTANT Post Treatment Assessment Post Peripheral Pulse Rate : 72 bpm Post Respiratory Rate : 18 br/min Respiratory Treatment Response : Unchanged breath sounds Maria Antonia Gonsales CAFETERIA WORKER - 09/23/2022 20:04 OUTBOUND SALES CONSULTANT Suction/Cough Cough and Deep Breathe : Done Spontaneous Cough : Yes Cough : Non-Productive Maria Antonia Gonsales CAFETERIA WORKER - 09/23/2022 20:04 OUTBOUND SALES CONSULTANT Education Individuals Taught RT : Patient Barriers to Learning RT : None evident Assessment/Outcome Evaluation RT : Needs practice/supervision Maria Antonia Gonsales CAFETERIA WORKER - 09/23/2022 20:04 OUTBOUND SALES CONSULTANT * Krissy Romo CAFETERIA WORKER: PERFORM Event Display: RT Aerosol Therapy-MDI/Inhaler - Text Authored Date: RT Aerosol Therapy - MDI/Inhaler Entered On: 09/23/2022 15:52 OUTBOUND SALES CONSULTANT Performed On: 09/23/2022 15:51 OUTBOUND SALES CONSULTANT by Krissy Romo CAFETERIA WORKER RT Treatment Assessment Peripheral Pulse Rate : 94 bpm Respiratory Rate : 18 br/min All Lobes Breath Sounds : Clear, Diminished Dyspnea Pre : 1. None Oxygen Therapy : Room air Krissy Romo CAFETERIA WORKER - 09/23/2022 15:51 OUTBOUND SALES CONSULTANT Aerosol Therapy - MDI RT Charge - MDI : Subsequent Aerosol Treatment Route : Spacer Patient Participation in Aerosol tx : Cooperative Patient Effort : Good Krissy Romo CAFETERIA WORKER - 09/23/2022 15:51 OUTBOUND SALES CONSULTANT Post Treatment Assessment Post Peripheral Pulse Rate : 97 bpm Post Respiratory Rate : 18 br/min Respiratory Treatment Response : Unchanged breath sounds Post All Lobes Breath Sounds : Clear, Diminished Dyspnea Post : 1. None Krissy Romo CAFETERIA WORKER - 09/23/2022 15:51 OUTBOUND SALES CONSULTANT Suction/Cough Spontaneous Cough : Yes Cough : Able to clear secretions Krissy Romo CAFETERIA WORKER - 09/23/2022 15:51 OUTBOUND SALES CONSULTANT Education Topics : Metered dose inhaler/spacer use Individuals Taught RT : Patient Assessment/Outcome Evaluation RT : Needs practice/supervision, Returns demonstrations correctly, Verbalizes understanding Krissy Romo CAFETERIA WORKER - 09/23/2022 15:51 OUTBOUND SALES CONSULTANT * Za Carlin US/PCT: PERFORM Event Display: Physician/WIRELESS SALES CONSULTANT Communication - Text Authored Date: Physician/WIRELESS SALES CONSULTANT Communication Entered On: 09/23/2022 14:19 OUTBOUND SALES CONSULTANT Performed On: 09/23/2022 14:19 OUTBOUND SALES CONSULTANT by Za Carlin US/PCT MD/WIRELESS SALES CONSULTANT Communication Physician/WIRELESS SALES CONSULTANT Search : Jeremie Mujica M.D. Date/Time Physician/WIRELESS SALES CONSULTANT Communication : 09/23/2022 14:19 OUTBOUND SALES CONSULTANT Physician/WIRELESS SALES CONSULTANT Communication Type : Called Za Carlin US/PCT - 09/23/2022 14:19 OUTBOUND SALES CONSULTANT * Felipa Cardoza OT: PERFORM Event Display: OT Cancellation Note Authored Date: OT Cancellation Note Entered On: 09/23/2022 12:08 OUTBOUND SALES CONSULTANT Performed On: 09/23/2022 12:08 OUTBOUND SALES CONSULTANT by Felipa Cardoza OT OT Cancellation Occupational Therapy Cancellation Status : Treatment session cancelled this attempt, will reattempt when appropriate. OT Cancellation Comments : patient cancelled due to LE dopplers pending Felipa Cardoza OT - 09/23/2022 12:08 OUTBOUND SALES CONSULTANT * Laila Pritchard CAFETERIA WORKER-ACCS: PERFORM Event Display: RT Aerosol Therapy-MDI/Inhaler - Text Authored Date: RT Aerosol Therapy - MDI/Inhaler Entered On: 09/23/2022 11:08 OUTBOUND SALES CONSULTANT Performed On: 09/23/2022 11:07 OUTBOUND SALES CONSULTANT by Laila Pritchard CAFETERIA WORKER-ACCS RT Treatment Assessment Peripheral Pulse Rate : 101 bpm (H) Respiratory Rate : 22 br/min All Lobes Breath Sounds : Diminished Laila Pritchard CAFETERIA WORKER-ACCS - 09/23/2022 11:07 OUTBOUND SALES CONSULTANT Aerosol Therapy - MDI RT Charge - MDI : Subsequent Aerosol Treatment Route : Spacer Patient Participation in Aerosol tx : Cooperative Patient Effort : Good HarriettyenniferLaila CAFETERIA WORKER-ACCS - 09/23/2022 11:07 OUTBOUND SALES CONSULTANT Post Treatment Assessment Post Peripheral Pulse Rate : 98 bpm Post Respiratory Rate : 20 br/min Respiratory Treatment Response : Unchanged breath sounds Post All Lobes Breath Sounds : Diminished Laila Pritchard Florian CAFETERIA WORKER-ACCS - 09/23/2022 11:07 OUTBOUND SALES CONSULTANT Suction/Cough Cough : None Macho Laila E CAFETERIA WORKER-ACCS - 09/23/2022 11:07 OUTBOUND SALES CONSULTANT Education Topics : Metered dose inhaler/spacer use Individuals Taught RT : Patient Barriers to Learning RT : None evident Teaching Method RT : Demonstration, Explanation Assessment/Outcome Evaluation RT : Needs further teaching, Needs practice/supervision, Needs reinforcement Macho Laila E CAFETERIA WORKER-ACCS - 09/23/2022 11:07 OUTBOUND SALES CONSULTANT * Laila Ellison Physical Therapist: PERFORM Event Display: PT Cancellation Note Authored Date: [id number] PT Cancellation Note Entered On: 09/23/2022 08:33 OUTBOUND SALES CONSULTANT Performed On: 09/23/2022 08:32 OUTBOUND SALES CONSULTANT by Laila Ellison Physical Therapist PT Cancellation Physical Therapy Cancellation Status : Treatment session cancelled this attempt. PT Cancellation Comments : Lower extremity dopplers pending. Will await results and evaluate as appropriate. Laila Ellison Physical Therapist - 09/23/2022 08:32 OUTBOUND SALES CONSULTANT * Sapna Everett US: PERFORM Event Display: Physician/WIRELESS SALES CONSULTANT Communication - Text Authored Date: [id number] Physician/WIRELESS SALES CONSULTANT Communication Entered On: 09/23/2022 08:04 OUTBOUND SALES CONSULTANT Performed On: 09/23/2022 08:03 OUTBOUND SALES CONSULTANT by Sapna Everett MD/WIRELESS SALES CONSULTANT Communication Physician/WIRELESS SALES CONSULTANT Search : Susan Montiel MD Date/Time Physician/WIRELESS SALES CONSULTANT Communication : 09/23/2022 08:03 OUTBOUND SALES CONSULTANT Physician/WIRELESS SALES CONSULTANT Communication Type : Called, Other: spoke with Joan at the Answering [facility] Sapna Everett - 09/23/2022 08:03 OUTBOUND SALES CONSULTANT * Laila Pritchard CAFETERIA WORKER-ACCS: PERFORM Event Display: RT Aerosol Therapy-MDI/Inhaler - Text Authored Date: [id number] RT Aerosol Therapy - MDI/Inhaler Entered On: 09/23/2022 06:56 OUTBOUND SALES CONSULTANT Performed On: 09/23/2022 06:56 OUTBOUND SALES CONSULTANT by Laila Pritchard RRT-ACCNancy Aerosol Therapy - MDI RT Charge - MDI : Subsequent Laila Pritchard CAFETERIA WORKER-ACCS - 09/23/2022 11:08 OUTBOUND SALES CONSULTANT Education Topics : Dry powder inhaler Individuals Taught RT : Patient Barriers to Learning RT : None evident Teaching Method RT : Demonstration, Explanation Assessment/Outcome Evaluation RT : Returns demonstrations correctly, Verbalizes understanding Laila Pritchard CAFETERIA WORKER-ACCS - 09/23/2022 06:56 OUTBOUND SALES CONSULTANT * Laila Pritchard CAFETERIA WORKER-ACCS: PERFORM Event Display: RT Adult Severity Index - Text Authored Date: RT Adult Patient Severity Index Entered On: 09/23/2022 06:57 OUTBOUND SALES CONSULTANT Performed On: 09/23/2022 06:56 OUTBOUND SALES CONSULTANT by Laila Pritchard CAFETERIA WORKER-ACCS History and Diagnosis Chief Complaint : Afib COPD Exacerbation Pulmonary Diagnosis : COPD Home Oxygen/CPAP/BiPAP : none noted Home Respriatory Therapy : 1 p Advair 250/50 BID 2 P Albuterol PRN Laila Pritchard CAFETERIA WORKER-ACCS - 09/23/2022 06:56 OUTBOUND SALES CONSULTANT RT Adult Patient Severity Index Level of Consciousness, Severity Index : Alert, oriented, cooperative Level of Acuity, Severity Index : Ambulatory Respiratory Pattern, Severity Index : Regular pattern, RR = 8-20 Breath Sounds, Severity Index : Diminished bilaterally, fine crackles Cough, Severity Index : Strong, spontaneous, non-productive Respiratory History, Severity Index : Severe or chronic exacerbation Surgery This Admission, Severity Index : No surgery Chest X-Ray, Severity Index : Infiltrate in more than one lobe, interstitial changes Adult Severity Index Score : 9 RT Class III : q 4 hours while awake & PRN RT Treatment Plan : continue nebs as ordered Laila Pritchard CAFETERIA WORKER-ACCS - 09/23/2022 06:56 OUTBOUND SALES CONSULTANT Vital Signs Peripheral Pulse Rate : 90 bpm Respiratory Rate : 20 br/min SpO2 : 96 % MachoNateLaila E CAFETERIA WORKER-ACCS - 09/23/2022 06:56 OUTBOUND SALES CONSULTANT Respiratory Care Plan RT Nebulizer Medication Grid RT Nebulizer Medication : DuoNeb RT Nebulizer Medication Dose : 3 ml unit dose RT Nebulizer Medication Frequency : q 4 hours while awake HarriettLaila de oliveira [facility]-ACCS - 09/23/2022 06:56 OUTBOUND SALES CONSULTANT Post Tx Breath Sounds BUL : Diminished BLL : Diminished KARISSA : Clear RML : Clear RUL : Clear LLL : Clear RLL : Clear HarriettLaila de oliveira CAFETERIA WORKER-ACCS - 09/23/2022 06:56 OUTBOUND SALES CONSULTANT Respiratory Treatment Response : Unchanged breath sounds Laila Pritchard [facility]-ACCS - 09/23/2022 06:56 OUTBOUND SALES CONSULTANT Suction/Cough Cough : None Laila Pritchard [facility]-ACCS - 09/23/2022 06:56 OUTBOUND SALES CONSULTANT RT Plan of Care RT Plan of Care : Stabilizing - continue current therapy Laila Pritchard [facility]-ACCS - 09/23/2022 06:56 OUTBOUND SALES CONSULTANT * Lien Gar CAFETERIA WORKER: PERFORM Event Display: RT Aerosol Therapy-Nebulizer - Text Authored Date: RT Aerosol Therapy - Nebulizer Entered On: 09/23/2022 00:13 OUTBOUND SALES CONSULTANT Performed On: 09/23/2022 00:03 OUTBOUND SALES CONSULTANT by Lien Gar CAFETERIA WORKER RT Treatment Assessment Peripheral Pulse Rate : 98 bpm Respiratory Rate : 18 br/min All Lobes Breath Sounds : Diminished Lien Gar CAFETERIA WORKER - 09/23/2022 00:12 OUTBOUND SALES CONSULTANT Aerosol Therapy - Nebulizer RT Charge - Nebulizer : Initial Aerosol Treatment Route : Mouth piece Patient Participation in Aerosol tx : Cooperative Patient Effort : Good Lien Gar RRT - 09/23/2022 00:12 OUTBOUND SALES CONSULTANT Post Treatment Assessment Post Peripheral Pulse Rate : 112 bpm (H*) Post Respiratory Rate : 18 br/min Respiratory Treatment Response : Unchanged breath sounds Post All Lobes Breath Sounds : Diminished Lien Gar RRT - 09/23/2022 00:12 OUTBOUND SALES CONSULTANT Suction/Cough Spontaneous Cough : Yes Cough : Non-Productive Lien Gar RRT - 09/23/2022 00:12 OUTBOUND SALES CONSULTANT RT Adult Severity Score Level of Consciousness, Severity Index : Alert, oriented, cooperative Level of Acuity, Severity Index : Ambulatory Respiratory Pattern, Severity Index : Regular pattern, RR = 8-20 Breath Sounds, Severity Index : Diminished bilaterally, fine crackles Cough, Severity Index : Strong, spontaneous, non-productive Respiratory History, Severity Index : Severe or chronic exacerbation Surgery This Admission, Severity Index : No surgery Chest X-Ray, Severity Index : Infiltrate in more than one lobe, interstitial changes Adult Severity Index Score : 9 Lien Gar CAFETERIA WORKER - 09/23/2022 00:12 OUTBOUND SALES CONSULTANT * Natty Car MD: VERIFY, VERIFY, PERFORM Event Display: Interpretation: Authored Date: EXAMINATION: CT angiography chest with contrast HISTORY: Shortness of breath, orthopnea, lung cancer FINDINGS: Axial computed tomographic images of the chest were obtained with contrast using PE protocol. 3D reconstructions were performed on an independent workstation under concurrent physician supervision. Omnipaque-350 69 mL IV was given without complication. Serum creatinine on 09/23/2022 is 0.9 mg/dL with estimated glomerular filtration rate of >60 mL/min/1.73 sq m. Radiation exposure as measured by the dose length product (DLP) is 222 mGy-cm. CT dose-lowering technique was utilized. Comparison to noncontrast chest CT on 01/24/2022. There are small bilateral pleural effusions with bibasilar and lingular atelectasis, new compared to prior study. There is increased soft tissue density in the medial aspect of the right upper lobe (series 7, image #57). No pneumothorax. The heart is mildly enlarged. No pericardial effusion. There is atherosclerosis of the coronary arteries, thoracic aorta, and proximal great vessels. No thoracic aortic aneurysm. No CT evidence of pulmonary embolus. No axillary lymphadenopathy. Prominent mediastinal lymph nodes appear unchanged compared to prior study. No hilar lymphadenopathy. There is reflux of contrast into the hepatic veins. There is a healed median sternotomy. 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 3-D images confirm the above vascular findings. IMPRESSION: 1. No CT evidence of pulmonary embolus. 2. Increased soft tissue density in the medial right upper lobe at the site of prior radiation therapy which could be seen in the setting of tumor recurrence. 3. Small bilateral pleural effusions with bibasilar and lingular atelectasis, new compared to prior study. 4. Cardiac enlargement with reflux of contrast into the hepatic veins, findings which could be seen with heart failure. . Dictating Physician: Natty Car MD Releasing Physician: Natty Car MD Signature Electronically Authorized Authorized Date/Time: 23-SEP-2022 10:54 am * Lien Gar CAFETERIA WORKER: PERFORM Event Display: RT Adult Severity Index - Text Authored Date: RT Adult Patient Severity Index Entered On: 09/22/2022 23:46 OUTBOUND SALES CONSULTANT Performed On: 09/22/2022 23:45 OUTBOUND SALES CONSULTANT by Lien Gar RRT History and Diagnosis Home Respriatory Therapy : 1 p Advair 250/50 BID 2 P Albuterol PRN Lien Gar CAFETERIA WORKER - 09/22/2022 23:56 OUTBOUND SALES CONSULTANT Chief Complaint : Afib COPD Exacerbation Pulmonary Diagnosis : COPD Home Oxygen/CPAP/BiPAP : none noted Lien Gar RRT - 09/22/2022 23:45 OUTBOUND SALES CONSULTANT RT Adult Patient Severity Index Level of Consciousness, Severity Index : Alert, oriented, cooperative Level of Acuity, Severity Index : Ambulatory Respiratory Pattern, Severity Index : Regular pattern, RR = 8-20 Breath Sounds, Severity Index : Diminished bilaterally, fine crackles Cough, Severity Index : Strong, spontaneous, non-productive Respiratory History, Severity Index : Severe or chronic exacerbation Surgery This Admission, Severity Index : No surgery Chest X-Ray, Severity Index : Infiltrate in more than one lobe, interstitial changes Adult Severity Index Score : 9 RT Class III : q 4 hours RT Treatment Plan : Duo neb Q4 Lien Gar RRT - 09/22/2022 23:56 OUTBOUND SALES CONSULTANT Vital Signs Peripheral Pulse Rate : 98 bpm Respiratory Rate : 18 br/min SpO2 : 96 % Oxygen Flow Rate : 0 L/min Lien Gar RRT - 09/23/2022 00:11 OUTBOUND SALES CONSULTANT Respiratory Care Plan RT Nebulizer Medication Grid RT Nebulizer Medication : DuoNeb RT Nebulizer Medication Dose : 3 ml unit dose RT Nebulizer Medication Frequency : q 4 hours while awake Lien Gar RRT - 09/23/2022 00:11 OUTBOUND SALES CONSULTANT Post Tx Breath Sounds BUL : Diminished BLL : Diminished KARISSA : Diminished RML : Diminished RUL : Diminished LLL : Diminished RLL : Diminished Lien Gar CAFETERIA WORKER - 09/23/2022 00:11 OUTBOUND SALES CONSULTANT Respiratory Treatment Response : Unchanged breath sounds Lien Gar CAFETERIA WORKER - 09/22/2022 23:56 OUTBOUND SALES CONSULTANT Suction/Cough Spontaneous Cough : Yes Cough : Non-Productive Lien Gar CAFETERIA WORKER - 09/22/2022 23:56 OUTBOUND SALES CONSULTANT RT Plan of Care RT Plan of Care : Stabilizing - continue current therapy Lien Gar CAFETERIA WORKER - 09/22/2022 23:56 OUTBOUND SALES CONSULTANT * Rhonda Rodrigues RN: PERFORM Event Display: Fall Risk Intervention - Text Authored Date: [id number] Fall Risk Intervention Entered On: 09/22/2022 23:37 OUTBOUND SALES CONSULTANT Performed On: 09/22/2022 23:36 OUTBOUND SALES CONSULTANT by Rhonda Rodrigues RN Fall Prevention High Fall Risk Interventions : BED/CHAIR ALARM, LOW BED, Bed in low/locked position, Call light in reach, Educate pt. and family on fall prevention, Fall Care Plan, Fall risk bracelet, Gait belt, Observe patient every hour and offer toileting, Personal Items in Reach, Safety Care Plan, Side rails up X 3, Staff remain in room with pt. while toileting, Staff to assist when transferring/ambulating/toileting, Yellow non-skid socks Safety Checklist : Allergy Band, Call device within reach, Close to Nurses Station, Electric Equipment Hazards Reviewed, Fluid/Foods Offered, Identification band, Medication reviewed for appropriateness, Monitor alarms on/limits set, Night light, Phone, TV/CCTV Rhonda Rodrigues RN - 09/22/2022 23:36 OUTBOUND SALES CONSULTANT * Rhonda Rodrigues RN: PERFORM Event Display: Mandatory Admission Screens - Text Authored Date: [id number] Mandatory Admission Screens Entered On: 09/22/2022 23:36 OUTBOUND SALES CONSULTANT Performed On: 09/22/2022 23:35 OUTBOUND SALES CONSULTANT by Rhonda Rodrigues RN Measurements/Notification/Integumary Screen Height : 178 cm(Converted to: 5 ft 10 inch(es), 70.08 inch(es)) Weight : 95.5 kg(Converted to: 210.541 pound(s)) Body Mass Index : 30.14 kg/m2 Body Surface Area : 2.173 m2 Physician to be Notified of Admission : No Person to be Notified of Admission : No Rhonda Rodrigues RN - 09/22/2022 23:35 OUTBOUND SALES CONSULTANT Belongings Patient has Belongings : Yes Clothes, Patient Valuables at Bedside : Jacket, Pants, Shirt, Shoes Electronic Devices at Bedside : Cell phone, Other: trigonometry tutor Rhonda Rodrigues RN - 09/22/2022 23:35 OUTBOUND SALES CONSULTANT Jewelry at Bedside : Watch, Wedding band Rhonda Rodrigues RN - 09/23/2022 04:33 OUTBOUND SALES CONSULTANT Monetary Items at Bedside : Other: brief case Rhonda Rodrigues RN - 09/22/2022 23:35 OUTBOUND SALES CONSULTANT Nutrition Screen Home Diet : Regular Feeding Ability : Complete independence Eating Difficulties : None Adaptive Feeding Equipment : None Appetite : Fair Have you lost weight recently without trying? : No Eating poorly due to decreased appetite? : No MST Score : 0 Nausea/Vomiting/Diarrhea Prior to admission : No Rhonda Rodrigues RN - 09/22/2022 23:35 OUTBOUND SALES CONSULTANT Diabetes Screen Insulin Pump Present : No Ever diagnosed with Diabetes, any type? : No Ever been told you have Pre Diabetes? : No Do you check Blood Glucose at home? : No Rhonda Rodrigues RN - 09/22/2022 23:35 OUTBOUND SALES CONSULTANT * Rhonda Rodrigues RN: PERFORM Event Display: Patient History Adult - Text Authored Date: Patient History Entered On: 09/22/2022 23:35 OUTBOUND SALES CONSULTANT Performed On: 09/22/2022 23:24 OUTBOUND SALES CONSULTANT by Rhonda Rodrigues RN Preferred Language Preferred Language of Patient/Caregiver : Maltese Preferred Mode of Communication : Verbal Rhonda Rodrigues RN - 09/22/2022 23:24 OUTBOUND SALES CONSULTANT General Information Information Given By : Patient Rhonda Rodrigues RN - 09/22/2022 23:24 OUTBOUND SALES CONSULTANT Problem List Adult Past Medical History Reviewed : Yes Rhonda Rodrigues RN - 09/22/2022 23:24 OUTBOUND SALES CONSULTANT (As Of: 09/22/2022 23:35 OUTBOUND SALES CONSULTANT) Problems(Active) Acid reflux disease (SNOMED CT :506113690 ) Name of Problem: Acid reflux disease ; Recorder: Rose Mary Valdovinos RN; Confirmation: Confirmed ; Classification: Medical ; Code: [id number] ; Contributor System: PowerChart ; Last Updated: 07/11/2014 10:29 CDT ; Life Cycle Date: 05/01/2010 ; Life Cycle Status: Active ; Vocabulary: SNOMED CT Acute exacerbation of chronic obstructive airways disease J44.1 (ICD-10-CM :J44.1 ) Name of Problem: Acute exacerbation of chronic obstructive airways disease J44.1 ; Recorder: Linda Vaughan; Confirmation: Confirmed ; Classification: Medical ; Code: J44.1 ; Contributor System: PowerChart ; Last Updated: 04/09/2019 13:43 CDT ; Life Cycle Date: 12/31/2018 ; Life Cycle Status: Active ; Responsible Provider: Linda Vaughan; Vocabulary: ICD-10-CM ASHD (arteriosclerotic heart disease) I25.10 (ICD-10-CM :I25.10 ) Name of Problem: ASHD (arteriosclerotic heart disease) I25.10 ; Recorder: Linda Vaughan; Confirmation: Confirmed ; Classification: Medical ; Code: I25.10 ; Contributor System: PowerChart ; Last Updated: 04/09/2019 13:48 CDT ; Life Cycle Date: 12/31/2018 ; Life Cycle Status: Active ; Responsible Provider: Linda Vaughan; Vocabulary: ICD-10-CM Asthma (SNOMED CT :404006841 ) Name of Problem: Asthma ; Recorder: Rose Mary Valdovinos RN; Confirmation: Confirmed ; Classification:Medical ; Code: 421588286 ; Contributor System: PowerChart ; Last Updated: 07/11/2014 10:27 CDT ; Life Cycle Date: 05/01/2010 ; Life Cycle Status: Active ; Vocabulary: SNOMED CT Asthma J45.909 (ICD-10-CM :J45.909 ) Name of Problem: Asthma J45.909 ; Recorder: Linda Vaughan; Confirmation: Confirmed ; Classification:Medical ; Code: J45.909 ; Contributor System: PowerChart ; Last Updated: 04/09/2019 13:48 CDT ; Life Cycle Date: 12/31/2018 ; Life Cycle Status: Active ; Responsible Provider: Linda Vaughan; Vocabulary: I CD-10-CM Bulging lumbar disc (SNOMED CT :956270983 ) Name of Problem: Bulging lumbar disc ; Recorder: Rose Mary Valdovinos RN; Confirmation: Confirmed ; Classification: Medical ; Code: 964654793 ; Contributor System: PowerChart ; Last Updated: 07/11/2014 10:27 CDT ; Life Cycle Date: 05/01/2010 ; Life Cycle Status: Active ; Vocabulary: SNOMED CT Cataract (SNOMED CT :8896810183 ) Name of Problem: Cataract ; Recorder: Leonie Mercado RN; Confirmation: Confirmed ; Classification:Medical ; Code: 6885387231 ; Contributor System: PowerChart ; Last Updated: 11/08/2017 10:24 OUTBOUND SALES CONSULTANT ; Life Cycle Date: 11/08/2017 ; Life Cycle Status: Active ; Vocabulary: SNOMED CT COPD (chronic obstructive pulmonary disease) (SNOMED CT :60509125 ) Name of Problem: COPD (chronic obstructive pulmonary disease) ; Recorder: Rose Mary Valdovinos RN; Confirmation: Confirmed ; Classification: Medical ; Code: 39310087 ; Contributor System: PowerChart ; Last Updated: 03/04/2019 16:52 CDT ; Life Cycle Date: 03/04/2019 ; Life Cycle Status: Active ; Vocabulary: SNOMED CT COPD (chronic obstructive pulmonary disease) J44.9 (ICD-10-CM :J44.9 ) Name of Problem: COPD (chronic obstructive pulmonary disease) J44.9 ; Recorder: Linda Vaughan; Confirmation: Confirmed ; Classification: Medical ; Code: J44.9 ; Contributor System: PowerChart ; Last Updated: 04/09/2019 13:42 CDT ; Life Cycle Date: 12/31/2018 ; Life Cycle Status: Active ; Responsible Provider: Linda Vaughan; Vocabulary: ICD-10-CM Coronary arteriosclerosis in [place] artery (SNOMED CT :6296017904 ) Name of Problem: Coronary arteriosclerosis in [place] artery ; Recorder: Val Hendrickson V; Confirmation: Confirmed ; Classification: Medical ; Code: 3439802256 ; Contributor System: PowerChart; Last Updated: 07/27/2014 19:53 CDT ; Life Cycle Date: 07/27/2014 ; Life Cycle Status: Active ; Vocabulary: SNOMED CT Elevated cholesterol E78.00 (ICD-10-CM :E78.00 ) Name of Problem: Elevated cholesterol E78.00 ; Recorder: Linda Vaughan; Confirmation: Confirmed ; Classification: Medical ; Code: E78.00 ; Contributor System: PowerChart ; Last Updated: 04/09/2019 13:42CDT ; Life Cycle Date: 12/31/2018 ; Life Cycle Status: Active ; Responsible Provider: Linda Vaughan; Vocabulary: ICD-10-CM Gout (SNOMED CT :328748008 ) Name of Problem: Gout ; Recorder: Val Hendrickson GLORIA V; Confirmation: Confirmed ; Classification: Medical ; Code: 184906736 ; Contributor System: PowerChart ; Last Updated: 07/27/2014 19:54 CDT ; Life Cycle Date: 07/27/2014 ; Life Cycle Status: Active ; Vocabulary: SNOMED CT High blood pressure (SNOMED CT :8495552216 ) Name of Problem: High blood pressure ; Recorder: Rose Mary Valdovinos RN; Confirmation: Confirmed ; Classification: Medical ; Code: 9516477693 ; Contributor System: PowerChart ; Last Updated: 07/11/2014 10:28 CDT ; Life Cycle Date: 05/01/2010 ; Life Cycle Status: Active ; Vocabulary: SNOMED CT High cholesterol (SNOMED CT :82725452 ) Name of Problem: High cholesterol ; Recorder: Rose Mary Valdovinos RN; Confirmation: Confirmed ; Classification: Medical ; Code: 26531333 ; Contributor System: PowerChart ; Last Updated: 07/11/2014 10:28CDT ; Life Cycle Date: 05/01/2010 ; Life Cycle Status: Active ; Vocabulary: SNOMED CT HTN (hypertension) I10 (ICD-10-CM :I10 ) Name of Problem: HTN (hypertension) I10 ; Recorder: Linda Vaughan; Confirmation: Confirmed ; Classification: Medical ; Code: I10 ; Contributor System: PowerChart ; Last Updated: 04/09/2019 13:48 CDT ; Life Cycle Date: 12/31/2018 ; Life Cycle Status: Active ; Responsible Provider: Linda Vaughan; Vocabulary: ICD-10-CM Hyperplasia of prostate (SNOMED CT :3044495699 ) Name of Problem: Hyperplasia of prostate ; Recorder: Val Hendrickson GLORIA V; Confirmation: Confirmed ; Classification: Medical ; Code: 0801361939 ; Contributor System: PowerChart ; Last Updated: 07/27/2014 19:53 CDT ; Life Cycle Date: 07/27/2014 ; Life Cycle Status: Active ; Vocabulary: SNOMED CT Kidney stone (SNOMED CT :390516207 ) Name of Problem: Kidney stone ; Recorder: Wendy Kelly EMPLOYMENT CONSULTANT; Confirmation: Confirmed ; Classification: Medical ; Code: 389761721 ; Contributor System: [employer] ; Last Updated: 01/17/2021 10:43 CDT ; Life Cycle Date: 01/17/2021 ; Life Cycle Status: Active ; Responsible Provider: Wendy Kelly EMPLOYMENT CONSULTANT; Vocabulary: SNOMED CT Lesion of lung (SNOMED CT :471957973 ) Name of Problem: Lesion of lung ; Recorder: Wendy Kelly EMPLOYMENT CONSULTANT; Confirmation: Confirmed ; Classification: Medical ; Code: 572978414 ; Contributor System: [employer] ; Last Updated: 01/17/2021 10:43 CDT ; Life Cycle Date: 01/17/2021 ; Life Cycle Status: Active ; Responsible Provider: Wendy Kelly EMPLOYMENT CONSULTANT; Vocabulary: SNOMED CT Nocturia (SNOMED CT :305410085 ) Name of Problem: Nocturia ; Recorder: Rose Mary Valdovinos RN; Confirmation: Confirmed ; Classification: Medical ; Code: 724745461 ; Contributor System: PowerChart ; Last Updated: 07/11/2014 10:29 CDT ; Life Cycle Date: 05/01/2010 ; Life Cycle Status: Active ; Vocabulary: SNOMED CT ; Comments: 05/01/2010 05:40 - Rose Mary Valdovinos RN frequency Urinary incontinence (SNOMED CT :8843722835 ) Name of Problem: Urinary incontinence ; Recorder: Olga Rosenbaum RN; Confirmation: Confirmed ; Classification: Medical ; Code: 1862965298 ; Contributor System: PowerChart ; Last Updated: 10/14/2017 10:57 OUTBOUND SALES CONSULTANT ; Life Cycle Date: 10/14/2017 ; Life Cycle Status: Active ; Vocabulary: SNOMED CT Diagnoses(Active) Atrial fibrillation Date: 09/22/2022 ; Diagnosis Type: Discharge ; Confirmation: Confirmed ; Clinical Dx: Atrial fibrillation ; Classification: Medical ; Clinical Service: Non-Specified ; Code: ICD-10-CM ; Probability: 0 ; Diagnosis Code: I48.91 COPD exacerbation Date: 09/22/2022 ; Diagnosis Type: Discharge ; Confirmation: Confirmed ; Clinical Dx: COPD exacerbation ; Classification: Medical ; Clinical Service: Non-Specified ; Code: ICD-10-CM ; Probability: 0 ; Diagnosis Code: J44.1 Encounter for other specified special examinations Date: 09/22/2022 ; Confirmation: Confirmed ; Clinical Dx: Encounter for other specified special examinations ; Classification: Medical ; Clinical Service: Non-Specified ; Code: ICD-10-CM ; Probability: 0 ; Diagnosis Code: Z01.89 Shortness of breath Date: 09/22/2022 ; Diagnosis Type: Reason For Visit ; Confirmation: Confirmed ; Clinical Dx: Shortness of breath ; Classification: Medical ; Clinical Service: Emergency medicine ; Code: PNED ; Probability: 0 ; Diagnosis Code: [id number] Family Health History Family History Reviewed : Yes Rhonda Rodrigues RN - 09/22/2022 23:24 OUTBOUND SALES CONSULTANT Family History (As Of: 09/22/2022 23:35 OUTBOUND SALES CONSULTANT) Sister: Relation: Sister ; Gender: Female ; Nomenclature: Arthritis ; Value: Positive Mother: Relation: Mother ; Gender: Female ; ; Age at : 98 Years Nomenclature: Breast cancer ; Value: Positive Nomenclature: Stroke ; Value: Positive Procedure History Procedure History Reviewed : Yes Rhonda Rodrigues RN - 09/22/2022 23:24 OUTBOUND SALES CONSULTANT - Procedure History (As Of: 09/22/2022 23:35 OUTBOUND SALES CONSULTANT) Anesthesia Minutes: 0 ; Procedure Name: Hip arthroplasty ; Procedure Minutes: 0 ; Comments: 05/01/2010 05:41 CDT - Rose Mary Valdovinos RN left Anesthesia Minutes: 0 ; Procedure Name: Prostate implantation ; Procedure Minutes: 0 Anesthesia Minutes: 0 ; Procedure Name: lumbar back surg 04/2010 ; Procedure Minutes: 0 Anesthesia Minutes: 0 ; Procedure Name: 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 : Yes Rhonda Rodrigues RN - 09/22/2022 23:24 OUTBOUND SALES CONSULTANT (As Of: 09/22/2022 23:35 OUTBOUND SALES CONSULTANT) Allergies (Active) NKA Estimated Onset Date: Unspecified ; Created By: Anahy Vo RN; Reaction Status: Active ; Category: Drug ; Substance: NKA ; Type: Allergy ; Updated By: Anahy Vo RN; Reviewed Date: 09/22/2022 18:34 OUTBOUND SALES CONSULTANT Medication List Medications Verified? : Yes Rhonda Rodrigues RN - 09/22/2022 23:24 OUTBOUND SALES CONSULTANT Medication List (As Of: 09/22/2022 23:35 OUTBOUND SALES CONSULTANT) Normal Order azithromycin (Zithromax) : azithromycin (Zithromax) ; Status: Completed ; Ordered As Mnemonic: Zithromax ; Simple Display Line: 500 mg, 5 mL, 250 mL/hr, IV Piggyback, Once ; Ordering Provider: Alfonzo Durham M.D.; Catalog Code: azithromycin ; Order Dt/Tm: 09/22/2022 20:52 OUTBOUND SALES CONSULTANT cefTRIAXone 1 gm/50 mL : cefTRIAXone 1 gm/50 mL ; Status: Completed ; Ordered As Mnemonic: cefTRIAXone ; Simple Display Line: 1 gm, 50 mL, 100 mL/hr, IV Piggyback, Once ; Ordering Provider: Alfonzo Durham M.D.; Catalog Code: cefTRIAXone ; Order Dt/Tm: 09/22/2022 20:52 OUTBOUND SALES CONSULTANT ; Comment: ALWAYS Communicate Potential Side Effects: pain at injection site, diarrhea albuterol Inhaler : albuterol Inhaler ; Status: Completed ; Ordered As Mnemonic: albuterol 90 mcg/inh inhaler ; Simple Display Line: 2 puff(s), Inhalation, Once ; Ordering Provider: Alfonzo Durham M.D.; Catalog Code: albuterol ; Order Dt/Tm: 09/22/2022 18:58 OUTBOUND SALES CONSULTANT ; Comment: RT to Do ALWAYS Communicate Potential Side Effects: Tremors, nervousness, cough, throat irritation, headache, runny or stuffy nose. methylPREDNISolone 125 mg/2 mL Inj : methylPREDNISolone 125 mg/2 mL Inj ; Status: Completed ; Ordered As Mnemonic: SOLUMedrol IV Slow Push Dosing ; Simple Display Line: 125 mg, 2 mL, IV SLOW Push, Once ; Ordering Provider: Alfonzo Durham M.D.; Catalog Code: methylPREDNISolone ; Order Dt/Tm: 09/22/2022 18:58 OUTBOUND SALES CONSULTANT ; Comment: ALWAYS Co mmunicate Potential Side Effects: Increased appetite, weight gain, anxiety azithromycin (Zithromax) : azithromycin (Zithromax) ; Status: Ordered ; Ordered As Mnemonic: Zithromax ; Simple Display Line: 500 mg, 5 mL, 250 mL/hr, IV Piggyback, q24h ; Ordering Provider: Alfonzo Durham M.D.; Catalog Code: azithromycin ; Order Dt/Tm: 09/22/2022 23:10 OUTBOUND SALES CONSULTANT ; Comment: x 5 days cefTRIAXone 1 gm/50 mL : cefTRIAXone 1 gm/50 mL ; Status: Ordered ; Ordered As Mnemonic: Rocephin ; Simple Display Line: 1gm, 50 mL, 100 mL/hr, IV Piggyback, q24h ; Ordering Provider: Alfonzo Durham M.D.; Catalog Code: cefTRIAXone ; Order Dt/Tm: 09/22/2022 23:10 OUTBOUND SALES CONSULTANT methylPREDNISolone 40 mg/1 mL Inj : methylPREDNISolone 40 mg/1 mL Inj ; Status: Ordered ; Ordered As Mnemonic: SOLUMedrol IV Slow Push Dosing ; Simple Display Line: 40 mg, 1 mL, IV SLOW Push, [id number] ; Ordering Provider: Alfonzo Durham M.D.; Catalog Code: methylPREDNISolone ; Order Dt/Tm: 09/22/2022 23:10 OUTBOUND SALES CONSULTANT ; Comment: ALWAYS Co mmunicate Potential Side Effects: Increased appetite, weight gain, anxiety albuterol-ipratropium 2.5 mg-0.5 mg/3 mL Jimena UD : albuterol-ipratropium 2.5 mg-0.5 mg/3 mL Jimena UD ; Status: Ordered ; Ordered As Mnemonic: DuoNeb 2.5 mg-0.5 mg/3 mL ; Simple Display Line: 3 mL, Nebulized, [id number] ; Ordering Provider: Alfonzo Durham M.D.; Catalog Code: albuterol- ipratropium ; Order Dt/Tm: 09/22/2022 23:10 OUTBOUND SALES CONSULTANT ; Comment: RT to Give ALWAYS Communicate Potential Side Effects: Tremors, nervousness, cough, throat irritation, headache, runny or stuffy nose. ondansetron 4 mg/2 mL Inj : ondansetron 4 mg/2 mL Inj ; Status: Ordered ; Ordered As Mnemonic: ondansetron ; Simple Display Line: 4 mg, 2 mL, IV SLOW Push, [id number], PRN: nausea/vomiting ; Ordering Provider: Alfonzo Durham M.D.; Catalog Code: ondansetron ; Order Dt/Tm: 09/22/2022 23:10 OUTBOUND SALES CONSULTANT ; Comment: ALWAYS Communicate Potential Side Effects: Headache, tiredness, pain, swelling, itching, irritation where the needle is placed. naloxone 0.4 mg/1 mL Inj : naloxone 0.4 mg/1 mL Inj ; Status: Ordered ; Ordered As Mnemonic: Narcan ; Simple Display Line: 0.2 mg, 0.5 mL, IV SLOW Push, q2min, PRN: opiate reversal ; Ordering Provider: Alfonzo Durham M.D.;Catalog Code: naloxone ; Order Dt/Tm: 09/22/2022 23:10 OUTBOUND SALES CONSULTANT ; Comment: ALWAYS Communicate Potential Side Effects: increased heart rate, increased blood pressure, nausea Sodium Chloride 0.9% 250 mL : Sodium Chloride 0.9% 250 mL ; Status: Ordered ; Ordered As Mnemonic: Back Up Bag NS 0.9% for [id number] mL ; Simple Display Line: KVO Rate for Backup Bag, IV Cont, Stop: 10/22/20222308 ; Ordering Provider: Alfonzo Durham M.D.; Catalog Code: Sodium Chloride 0.9% ; Order Dt/Tm: 09/22/2022 23:10 OUTBOUND SALES CONSULTANT ; Comment: This is for a backup bag for after IVPB Sodium Chloride 0.9% 250 mL : Sodium Chloride 0.9% 250 mL ; Status: Ordered ; Ordered As Mnemonic: Back Up Bag NS 0.9% for [id number] mL ; Simple Display Line: KVO Rate for Backup Bag, IV Cont, Stop: 10/22/20222308 ; Ordering Provider: Alfonzo Durham M.D.; Catalog Code: Sodium Chloride 0.9% ; Order Dt/Tm: 09/22/2022 23:10 OUTBOUND SALES CONSULTANT ; Comment: This is for a backup bag for after IVPB Prescription/Discharge Order prochlorperazine : prochlorperazine ; Status: Prescribed ; Ordered As Mnemonic: prochlorperazine 10 mg oral tablet ;Simple Display Line: 10 mg, 1 tablet(s), Oral, g0qdoss, for 30 day(s), PRN: nausea, 30 each, 1 Refill(s) ; Ordering Provider: Luis Fernando Vo M.D.; Catalog Code: prochlorperazine ; Order Dt/Tm: 08/16/2022 14:04 CDT allopurinol : allopurinol ; Status: Prescribed ; Ordered As Mnemonic: allopurinol 100 mg oral tablet ; Simple Display Line: 1 tablet(s), Oral, daily, FOR GOUT PREVENTION., 90 tablet(s), 3 Refill(s) ; Ordering Provider: Luis Fernando Vo M.D.; Catalog Code: allopurinol ; Order Dt/Tm: 08/06/2022 09:17 CDT albuterol : albuterol ; Status: Prescribed ; Ordered As Mnemonic: albuterol 90 mcg/inh inhaler ; Simple Display Line: 2 puff(s), Inhalation, [id number], Slow Breath inhale slowly and deeply , PRN: shortness of breath, 1 each, 3 Refill(s) ; Ordering Provider: Susan Montiel MD; Catalog Code: albuterol ; OrderDt/Tm: 07/25/2022 12:04 CDT rosuvastatin : rosuvastatin ; Status: Prescribed ; Ordered As Mnemonic: rosuvastatin 20 mg oral tablet ; SimpleDisplay Line: 1 tablet(s), Oral, HS, 90 tablet(s), 3 Refill(s) ; Ordering Provider: Luis Fernando Vo M.D.; Catalog Code: rosuvastatin ; Order Dt/Tm: 05/29/2022 12:31 CDT predniSONE : predniSONE ; Status: Prescribed ; Ordered As Mnemonic: predniSONE 10 mg oral tablet ; Simple Display Line: Taper from 40 mg q3day by 10 mg till off, Oral, daily, for 12 day(s), 30 tablet(s), 0 Refill(s) ; Ordering Provider: Susan Montiel MD; Catalog Code: predniSONE ; Order Dt/Tm: 01/24/2022 13:14 CDT fluticasone-salmeterol : fluticasone-salmeterol ; Status: Prescribed ; Ordered As Mnemonic: Advair Diskus 250 mcg-50 mcg inhalation powder ; Simple Display Line: 1 puff(s), Inhalation, bid, 180 each, 10 Refill(s) ; Ordering Provider: Susan Montiel MD; Catalog Code: fluticasone-salmeterol ; Order Dt/Tm: 01/22/2022 12:27 CDT hydroCHLOROthiazide : hydroCHLOROthiazide ; Status: Prescribed ; Ordered As Mnemonic: hydroCHLOROthiazide 25 mg oral tablet ; Simple Display Line: 1 tablet(s), Oral, qam, 90 tablet(s), 3 Refill(s) ; Ordering Provider: Luis Fernando Vo M.D.; Catalog Code: hydroCHLOROthiazide ; Order Dt/Tm: 01/18/2022 13:27 CDT omeprazole : omeprazole ; Status: Prescribed ; Ordered As Mnemonic: omeprazole 20 mg oral delayed release capsule ; Simple Display Line: 1 capsule(s), Oral, daily, 90 capsule(s), 3 Refill(s) ; Ordering Provider: Luis Fernando Vo M.D.; Catalog Code: omeprazole ; Order Dt/Tm: 09/25/2021 08:33 OUTBOUND SALES CONSULTANT albuterol : albuterol ; Status: Prescribed ; Ordered As Mnemonic: albuterol 90 mcg/inh inhaler ; Simple Display Line: 2 puff(s), Inhalation, [id number], for 30 day(s), PRN: shortness of breath, 1 each, 3 Refill(s) ; Ordering Provider: Susan Montiel MD; Catalog Code: albuterol ; Order Dt/Tm: 05/31/2020 14:28CDT Home Meds cephalexin : cephalexin ; Status: Documented ; Ordered As Mnemonic: cephalexin 250 mg oral capsule ; Simple Display Line: 250 mg, 1 capsule(s), qhs, 0 Refill(s) ; Catalog Code: cephalexin ; Order Dt/Tm: 01/24/2022 09:09 CDT tamsulosin : tamsulosin ; Status: Documented ; Ordered As Mnemonic: Flomax 0.4 mg oral capsule ; Simple Display Line: 0.4 mg, 1 capsule(s), Oral, pm after dinner, 90 capsule(s), 0 Refill(s) ; Catalog Code: tamsulosin ; Order Dt/Tm: 04/10/2019 11:17 CDT ; Comment: Capsules should be swallowed whole; do not crush, chew, or open. naproxen : naproxen ; Status: Documented ; Ordered As Mnemonic: Aleve Caplet 220 mg oral tablet ; Simple Display Line: 1 tablet(s), Oral, [id number], PRN: headache, 30 tablet(s), 0 Refill(s) ; Catalog Code: naproxen ; Order Dt/Tm: 11/08/2017 10:35 OUTBOUND SALES CONSULTANT fexofenadine : fexofenadine ; Status: Documented ; Ordered As Mnemonic: fexofenadine 180 mg oral tablet ; SimpleDisplay Line: 180 mg, 1 tablet(s), Oral, daily, 30 tablet(s), 0 Refill(s) ; Catalog Code: fexofenadine ; Order Dt/Tm: 11/08/2017 10:34 OUTBOUND SALES CONSULTANT aspirin : aspirin ; Status: Documented ; Ordered As Mnemonic: aspirin 81 mg oral enteric coated tablet ; Simple Display Line: 81 mg, 1 tablet(s), Oral, daily, 0 Refill(s) ; Catalog Code: aspirin ; Order Dt/Tm: 11/08/2017 10:33 OUTBOUND SALES CONSULTANT multivitamin : multivitamin ; Status: Documented ; Ordered As Mnemonic: Multivitamin oral tablet ; Simple Display Line: 1 tablet(s), Oral, daily, 30 tablet(s) ; Catalog Code: multivitamin ; Order Dt/Tm: 11/12/2012 09:59 OUTBOUND SALES CONSULTANT Status: Processing ; Ordered As Mnemonic: acetaminophen ; Simple Display Line: 650 mg, Oral, 100 tablet(s), 0 Refill(s) ; Action Display: Document ; Catalog Code: acetaminophen ; Order Dt/Tm: 09/22/2022 23:28 OUTBOUND SALES CONSULTANT Functional Sensory Devices Needed : Glasses Medical Devices : None Radiology Testing Barriers/Precautions : Other: left hip replacement Medical Devices/Radiology Barriers Verified : Yes Living Situation : Home independently Anticipated Discharge Needs : Home independently Rhonda Rodrigues RN - 09/22/2022 23:24 OUTBOUND SALES CONSULTANT Social Habits Social History Reviewed : Yes Rhonda Rodrigues RN - 09/22/2022 23:24 OUTBOUND SALES CONSULTANT Social History (As Of: 09/22/2022 23:35 OUTBOUND SALES CONSULTANT) Tobacco: Former smoker, Smokeless Tobacco use: Never. N/A Cessation Counseling. Cigarettes, Stopped age 55 Years. (Last Updated: 07/25/2022 11:48 CDT by Janette Gutierrez RN) Alcohol: Current every day alcohol user, Liquor, Daily, 1 drink (Last Updated: 01/24/2022 09:10 CDT by Wendy Mccann EMPLOYMENT CONSULTANT/DIE OUT WORKER) Substance Abuse: Never drug user (Last Updated: 01/24/2022 09:10 CDT by Wendy Mccann EMPLOYMENT CONSULTANT/DIE OUT WORKER) Cultural/Spiritual Special Practices to be Part of Care : No Pastoral Care to Visit : No Rhonda Rodrigues RN - 09/22/2022 23:24 OUTBOUND SALES CONSULTANT Psychosocial Domestic Violence Screening : Patient does not have domestic violence concerns Chela Molina RN - 09/25/2022 10:52 OUTBOUND SALES CONSULTANT Current Danger to Self or Others : No Current treatment for Cancer on 7700 : No Little interest/pleasure in doing things? : No Feeling down, depressed, or hopeless? : No Have you wished you were ? : No Had thoughts of killing yourself? : No Ever attempted to kill yourself? : No Rhonda Rodrigues RN - 09/22/2022 23:24 OUTBOUND SALES CONSULTANT Advance Directive Advanced Directives : Yes Advance Directive Type : Medical durable power of document review attorney Advance Directive Location : Copy obtained from previous records Rhonda Rodrigues RN - 09/22/2022 23:24 OUTBOUND SALES CONSULTANT TB Screen Travelled or Contact in last month? : No contact with ill traveler Previous Pneumococcal Vaccine? : Yes Flu Vaccine This Season? : Yes Rhonda Rodrigues RN - 09/22/2022 23:24 OUTBOUND SALES CONSULTANT Novel Coronavirus Assessment Novel Coronavirus Current Fever : No Novel Coronavirus Fever 14 days : No Novel Coronavirus Exposed COVID 14 days : No Novel Coronavirus Previous Outside Labs : No Novel Coronavirus Received Vaccine : Yes Novel Coronavirus Vaccine Type : Moderna Novel Coronavirus Completed Vac Series : Yes Novel Coronavirus Booster Vaccine Received : Yes Rhonda Rodrigues RN - 09/22/2022 23:24 OUTBOUND SALES CONSULTANT * Osito Vasquez RN: PERFORM Event Display: ED Patient Handoff - Text Authored Date: ED Patient Handoff Entered On: 09/22/2022 23:02 OUTBOUND SALES CONSULTANT Performed On: 09/22/2022 23:02 OUTBOUND SALES CONSULTANT by Osito Vasquez RN Patient Handoff Time Report Called : 09/22/2022 23:02 OUTBOUND SALES CONSULTANT ED Report Called To : Rhonda ED Transfer To Room : 6514 Patient has Belongings : Yes Osito Vasquez RN - 09/22/2022 23:02 OUTBOUND SALES CONSULTANT Belongings Patient has Belongings : Yes Clothes, Patient Valuables at Bedside : Pants, Shirt, Shoes, Undergarments Osito Vasquez RN - 09/22/2022 23:02 OUTBOUND SALES CONSULTANT * Chiki Almanza CAFETERIA WORKER: PERFORM Event Display: RT Aerosol Therapy-MDI/Inhaler - Text Authored Date: RT Aerosol Therapy - MDI/Inhaler Entered On: 09/22/2022 19:17 OUTBOUND SALES CONSULTANT Performed On: 09/22/2022 19:16 OUTBOUND SALES CONSULTANT by Chiki Almanza CAFETERIA WORKER RT Treatment Assessment Peripheral Pulse Rate : 94 bpm Respiratory Rate : 20 br/min All Lobes Breath Sounds : Diminished Dyspnea Pre : 1. None Oxygen Therapy : Room air Oxygen Saturation : 96 % Chiki Almanza CAFETERIA WORKER - 09/22/2022 19:16 OUTBOUND SALES CONSULTANT Aerosol Therapy - MDI RT Charge - MDI : Initial Aerosol Treatment Route : Spacer Patient Participation in Aerosol tx : Cooperative Patient Effort : Good Chiki Almanza CAFETERIA WORKER - 09/22/2022 19:16 OUTBOUND SALES CONSULTANT Post Treatment Assessment Post Peripheral Pulse Rate : 97 bpm Post Respiratory Rate : 18 br/min Respiratory Treatment Response : Unchanged breath sounds Post All Lobes Breath Sounds : Diminished Dyspnea Post : 1. None Chiki Almanza CAFETERIA WORKER - 09/22/2022 19:16 OUTBOUND SALES CONSULTANT Suction/Cough Cough and Deep Breathe : Not done Chiki Almanza RRT - 09/22/2022 19:16 OUTBOUND SALES CONSULTANT Education Barriers to Learning RT : None evident Chiki Almanza RRT - 09/22/2022 19:16 OUTBOUND SALES CONSULTANT * Theodora Dias Compensation Consulting Manager: PERFORM Event Display: Designated Caregiver Text Authored Date: Designated Caregiver Entered On: 09/22/2022 19:00 OUTBOUND SALES CONSULTANT Performed On: 09/22/2022 19:00 OUTBOUND SALES CONSULTANT by Theodora Dias Compensation Consulting Manager Designated Caregiver Home Caregiver Identification : Patient identifies a Caregiver Home Caregiver Name/Relationship : BRANDY SMALL (SPOUSE) Home Caregiver Theodora Dias Compensation Consulting Manager - 09/22/2022 19:00 OUTBOUND SALES CONSULTANT * Event Display: Designated Caregiver Text Authored Date: [id number] * Theodora Dias Compensation Consulting Manager: PERFORM Event Display: Designated Caregiver Text Authored Date: [id number] Designated Caregiver Entered On: 09/22/2022 18:58 OUTBOUND SALES CONSULTANT Performed On: 09/22/2022 18:57 OUTBOUND SALES CONSULTANT by Theodora Dias Compensation Consulting Manager Designated Caregiver Home Caregiver Identification : Patient identifies a Caregiver Home Caregiver Name/Relationship : BRANDY SMALL (SPOUSE) Home Caregiver Theodora Dias Compensation Consulting Manager - 09/22/2022 18:57 OUTBOUND SALES CONSULTANT * Event Display: Authorization to Treat Authored Date: * Event Display: Authorization to Treat Authored Date: * Osito Vasquez RN: PERFORM Event Display: Health History/Procedures - Text Authored Date: [id number] ED Health History/Procedures Entered On: 09/22/2022 18:18 OUTBOUND SALES CONSULTANT Performed On: 09/22/2022 18:17 OUTBOUND SALES CONSULTANT by Osito Vasquez RN Problem List Adult Past Medical History Reviewed : Yes Osito Vasquez RN - 09/22/2022 18:17 OUTBOUND SALES CONSULTANT (As Of: 09/22/2022 18:18 OUTBOUND SALES CONSULTANT) Problems(Active) Acid reflux disease (SNOMED CT :101572829 ) Name of Problem: Acid reflux disease ; Recorder: Rose Mary Valdovinos RN; Confirmation: Confirmed ; Classification: Medical ; Code: [id number] ; Contributor System: [employer] ; Last Updated: 07/11/2014 10:29 CDT ; Life Cycle Date: 05/01/2010 ; Life Cycle Status: Active ; Vocabulary: SNOMED CT Acute exacerbation of chronic obstructive airways disease J44.1 (ICD-10-CM :J44.1 ) Name of Problem: Acute exacerbation of chronic obstructive airways disease J44.1 ; Recorder: Linda Vaughan; Confirmation: Confirmed ; Classification: Medical ; Code: J44.1 ; Contributor System: [employer] ; Last Updated: 04/09/2019 13:43 CDT ; Life Cycle Date: 12/31/2018 ; Life Cycle Status: Active ; Responsible Provider: Linda Vaughan; Vocabulary: ICD-10-CM ASHD (arteriosclerotic heart disease) I25.10 (ICD-10-CM :I25.10 ) Name of Problem: ASHD (arteriosclerotic heart disease) I25.10 ; Recorder: Linda Vaughan; Confirmation: Confirmed ; Classification: Medical ; Code: I25.10 ; Contributor System: [employer] ; Last Updated: 04/09/2019 13:48 CDT ; Life Cycle Date: 12/31/2018 ; Life Cycle Status: Active ; Responsible Provider: Linda Vaughan; Vocabulary: ICD-10-CM Asthma (SNOMED CT :707424245 ) Name of Problem: Asthma ; Recorder: Rose Mary Valdovinos RN; Confirmation: Confirmed ; Classification: Medical ; Code: [id number] ; Contributor System: [employer] ; Last Updated: 07/11/2014 10:27 CDT ; Life Cycle Date: 05/01/2010 ; Life Cycle Status: Active ; Vocabulary: SNOMED CT Asthma J45.909 (ICD-10-CM :J45.909 ) Name of Problem: Asthma J45.909 ; Recorder: Linda Vaughan; Confirmation: Confirmed ; Classification:Medical ; Code: J45.909 ; Contributor System: [employer] ; Last Updated: 04/09/2019 13:48 CDT ; Life Cycle Date: 12/31/2018 ; Life Cycle Status: Active ; Responsible Provider: Linda Vaughan; Vocabulary: I CD-10-CM Bulging lumbar disc (SNOMED CT :145418607 ) Name of Problem: Bulging lumbar disc ; Recorder: Rose Mary Valdovinos RN; Confirmation: Confirmed ; Classification: Medical ; Code: [id number] ; Contributor System: [employer] ; Last Updated: 07/11/2014 10:27 CDT ; Life Cycle Date: 05/01/2010 ; Life Cycle Status: Active ; Vocabulary: SNOMED CT Cataract (SNOMED CT :4922412579 ) Name of Problem: Cataract ; Recorder: Leonie Mercado RN; Confirmation: Confirmed ; Classification:Medical ; Code: [id number] ; Contributor System: [employer] ; Last Updated: 11/08/2017 10:24 OUTBOUND SALES CONSULTANT ; Life Cycle Date: 11/08/2017 ; Life Cycle Status: Active ; Vocabulary: SNOMED CT COPD (chronic obstructive pulmonary disease) (SNOMED CT :33144333 ) Name of Problem: COPD (chronic obstructive pulmonary disease) ; Recorder: Rose Mary Valdovinos RN; Confirmation: Confirmed ; Classification: Medical ; Code: [id number] ; Contributor System: [employer] ; Last Updated: 03/04/2019 16:52 CDT ; Life Cycle Date: 03/04/2019 ; Life Cycle Status: Active ; Vocabulary: SNOMED CT COPD (chronic obstructive pulmonary disease) J44.9 (ICD-10-CM :J44.9 ) Name of Problem: COPD (chronic obstructive pulmonary disease) J44.9 ; Recorder: Linda Vaughan; Confirmation: Confirmed ; Classification: Medical ; Code: J44.9 ; Contributor System: [employer] ; Last Updated: 04/09/2019 13:42 CDT ; Life Cycle Date: 12/31/2018 ; Life Cycle Status: Active ; Responsible Provider: Linda Vaughan; Vocabulary: ICD-10-CM Coronary arteriosclerosis in [place] artery (SNOMED CT :3151538966 ) Name of Problem: Coronary arteriosclerosis in [place] artery ; Recorder: Val Hendrickson GLORIA V; Confirmation: Confirmed ; Classification: Medical ; Code: [id number] ; Contributor System: [employer]; Last Updated: 07/27/2014 19:53 CDT ; Life Cycle Date: 07/27/2014 ; Life Cycle Status: Active ; Vocabulary: SNOMED CT Elevated cholesterol E78.00 (ICD-10-CM :E78.00 ) Name of Problem: Elevated cholesterol E78.00 ; Recorder: Linda Vaughan; Confirmation: Confirmed ; Classification: Medical ; Code: E78.00 ; Contributor System: [employer] ; Last Updated: 04/09/2019 13:42CDT ; Life Cycle Date: 12/31/2018 ; Life Cycle Status: Active ; Responsible Provider: Linda Vaughan; V ocabulary: ICD-10-CM Gout (SNOMED CT :236246655 ) Name of Problem: Gout ; Recorder: Val Hendrickson GLORIA V; Confirmation: Confirmed ; Classification: Medical ; Code: 497138697 ; Contributor System: [employer] ; Last Updated: 07/27/2014 19:54 CDT ; Life Cycle Date: 07/27/2014 ; Life Cycle Status: Active ; Vocabulary: SNOMED CT H/O: lung cancer (SNOMED CT :6724537619 ) Name of Problem: H/O: lung cancer ; Recorder: Susan Montiel MD; Confirmation: Confirmed ; Classification: Medical ; Code: [id number] ; Contributor System: [employer] ; Last Updated: 01/24/2022 13:15 CDT ; Life Cycle Date: 01/24/2022 ; Life Cycle Status: Active ; Responsible Provider: Susan Montiel MD; Vocabulary: SNOMED CT High blood pressure (SNOMED CT :3187800265 ) Name of Problem: High blood pressure ; Recorder: Rose Mary Valdovinos RN; Confirmation: Confirmed ; Classification: Medical ; Code: [id number] ; Contributor System: [employer] ; Last Updated: 07/11/2014 10:28 CDT ; Life Cycle Date: 05/01/2010 ; Life Cycle Status: Active ; Vocabulary: SNOMED CT High cholesterol (SNOMED CT :32468057 ) Name of Problem: High cholesterol ; Recorder: Rose Mary Valdovinos RN; Confirmation: Confirmed ; Classification: Medical ; Code: 98533094 ; Contributor System: [employer] ; Last Updated: 07/11/2014 10:28 CDT ; Life Cycle Date: 05/01/2010 ; Life Cycle Status: Active ; Vocabulary: SNOMED CT HTN (hypertension) I10 (ICD-10-CM :I10 ) Name of Problem: HTN (hypertension) I10 ; Recorder: Linda Vaughan; Confirmation: Confirmed ; Classification: Medical ; Code: I10 ; Contributor System: [employer] ; Last Updated: 04/09/2019 13:48 CDT ; Life Cycle Date: 12/31/2018 ; Life Cycle Status: Active ; Responsible Provider: Linda Vaughan; Vocabulary: ICD-10-CM Hyperplasia of prostate (SNOMED CT :1967512373 ) Name of Problem: Hyperplasia of prostate ; Recorder: Val Hendrickson V; Confirmation: Confirmed ; Classification: Medical ; Code: [id number] ; Contributor System: [employer] ; Last Updated: 07/27/2014 19:53 CDT ; Life Cycle Date: 07/27/2014 ; Life Cycle Status: Active ; Vocabulary: SNOMED CT Kidney stone (SNOMED CT :703269530 ) Name of Problem: Kidney stone ; Recorder: Wendy Kelly EMPLOYMENT CONSULTANT; Confirmation: Confirmed ; Classification: Medical ; Code: [id number] ; Contributor System: [employer] ; Last Updated: 01/17/2021 10:43 CDT ; Life Cycle Date: 01/17/2021 ; Life Cycle Status: Active ; Responsible Provider: Wendy Kelly EMPLOYMENT CONSULTANT; Vocabulary: SNOMED CT Lesion of lung (SNOMED CT :470631243 ) Name of Problem: Lesion of lung ; Recorder: Wendy Kelly EMPLOYMENT CONSULTANT; Confirmation: Confirmed ; Classification: Medical ; Code: [id number] ; Contributor System: [employer] ; Last Updated: 01/17/2021 10:43 CDT ; Life Cycle Date: 01/17/2021 ; Life Cycle Status: Active ; Responsible Provider: Wendy Kelly EMPLOYMENT CONSULTANT; Vocabulary: SNOMED CT Nocturia (SNOMED CT :656325364 ) Name of Problem: Nocturia ; Recorder: Rose Mary Valdovinos RN; Confirmation: Confirmed ; Classification: Medical ; Code: 511836191 ; Contributor System: [employer] ; Last Updated: 07/11/2014 10:29 CDT ; Life Cycle Date: 05/01/2010 ; Life Cycle Status: Active ; Vocabulary: SNOMED CT ; Comments: 05/01/2010 05:40 - Rose Mary Valdovinos RN frequency Urinary incontinence (SNOMED CT :3802237778 ) Name of Problem: Urinary incontinence ; Recorder: Olga Rosenbaum RN; Confirmation: Confirmed ; Classification: Medical ; Code: [id number] ; Contributor System: [employer] ; Last Updated: 10/14/2017 10:57 OUTBOUND SALES CONSULTANT ; Life Cycle Date: 10/14/2017 ; Life Cycle Status: Active ; Vocabulary: SNOMED CT Diagnoses(Active) Shortness of breath Date: 09/22/2022 ; Diagnosis Type: Reason For Visit ; Confirmation: Confirmed ; Clinical Dx: Shortness of breath ; Classification: Medical ; Clinical Service: Emergency medicine ; Code: PNED ; Probability: 0 ; Diagnosis Code: [id number] Family Health History Family History Reviewed : Yes Osito Vasquez RN - 09/22/2022 18:17 OUTBOUND SALES CONSULTANT Family History (As Of: 09/22/2022 18:18 OUTBOUND SALES CONSULTANT) Sister: Relation: Sister ; Gender: Female ; Nomenclature: Arthritis ; Value: Positive Mother: Relation: Mother ; Gender: Female ; ; Age at : 98 Years Nomenclature: Breast cancer ; Value: Positive Nomenclature: Stroke ; Value: Positive Procedure History Procedure History Reviewed : Yes Osito Vasquez RN - 09/22/2022 18:17 OUTBOUND SALES CONSULTANT - Procedure History (As Of: 09/22/2022 18:18 OUTBOUND SALES CONSULTANT) Anesthesia Minutes: 0 ; Procedure Name: Hip arthroplasty ; Procedure Minutes: 0 ; Comments: 05/01/2010 05:41 CDT - Rose Mary Valdovinos RN left Anesthesia Minutes: 0 ; Procedure Name: Prostate implantation ; Procedure Minutes: 0 Anesthesia Minutes: 0 ; Procedure Name: lumbar back surg 04/2010 ; Procedure Minutes: 0 Anesthesia Minutes: 0 ; Procedure Name: CABG x 5 - Coronary artery bypass grafts x 5 ; Procedure Minutes: 0 ; Comments: 10/14/2017 10:59 OUTBOUND SALES CONSULTANT - Olga Rosenbaum RN 2014 Anesthesia Minutes: 0 ; Procedure Name: CE - Cataract extraction ; Procedure Minutes: 0 Social Habits Flu Vaccine This Season? : Yes Osito Vasquez RN - 09/22/2022 18:17 OUTBOUND SALES CONSULTANT Social History (As Of: 09/22/2022 18:18 OUTBOUND SALES CONSULTANT) Tobacco: Former smoker, Smokeless Tobacco use: Never. N/A Cessation Counseling. Cigarettes, Stopped age 55 Years. (Last Updated: 07/25/2022 11:48 CDT by Janette Gutierrez RN) Alcohol: Current every day alcohol user, Liquor, Daily, 1 drink (Last Updated: 01/24/2022 09:10 CDT by Wendy Mccann EMPLOYMENT CONSULTANT/DIE OUT WORKER) Substance Abuse: Never drug user (Last Updated: 01/24/2022 09:10 CDT by Wendy Mccann EMPLOYMENT CONSULTANT/DIE OUT WORKER) Medical Devices Medical Devices : None Radiology Testing Barriers/Precautions : Other: left hip replacement Osito Vsaquez RN - 09/22/2022 18:17 OUTBOUND SALES CONSULTANT * Event Display: ROI_Correspondence * Event Display: ROI_Correspondence * Event Display: ROI_Correspondence * Event Display: ROI_Correspondence Authored Date: [id number] * Event Display: ROI_Correspondence Authored Date: [id number] Discharge summary * Binh Jiang M.D.: PERFORM, MODIFY, SIGN, VERIFY Event Display: Discharge Summary. Authored Date: Patient: BAM SMALL Age: 86 years Sex: Male : 1935 Associated Diagnoses: None Author: Binh Jiang M.D. Discharge Summary Reason for Hospitalization: Patient is an 86-year-old male with a past medical history of COPD, stage I right upper lobe lung cancer (status post radiation therapy), CAD status post CABG, hypertension, hyperlipidemia, gout, who presents with shortness of breath, productive cough, and chest discomfort. In the ED, noted to have wheezing on exam and given steroids and albuterol with improvement of symptoms. Viral respiratory pathogen panel was obtained and was negative. Chest x-ray showed no acute process. Patient was also given ceftriaxone and azithromycin for possible pneumonia. Pulmonology and cardiology were consulted by ED. Admitted for further management. Upon arrival to floor, patient withadequate oxygen saturation on room air and states that he is feeling much better, with significant improvement of symptoms and feeling almost back to baseline.. Hospital Course\Significant Findings: Patient was admitted to hospital and had management of the following medical problems. Acute on chronic heart failure with reduced ejection fraction. -Diuresed with IV Lasix and transitioned to oral lasix -Echocardiogram results reviewed which showed ejection fraction of 25%. -Echo also showed mild to moderate mitral regurgitation and moderate tricuspid regurgitation. He had elevated RSVP. -Cardiology was consulted and appreciate input from Dr. Mujica -Continue on metoprolol, Entresto - LifeVest on discharge Chest pain, CAD: History of CABG -MO was ruled out. Monitor on the rehabilitation technician. Continue on aspirin, statin, beta-ric. -Plan for further work up as an out patient Possible atrial fibrillation: -Currently in normal sinus rhythm. -Continue metoprolol and aspirin. Presumed COPD exacerbation: -Continue on bronchodilators. Multiplex PCR is negative. -On oral prednisone with tapering doses. -Antibiotics discontinued as procalcitonin normal -Continue on Breo Ellipta. Appreciate pulmonary input. History of lung cancer: -S/p radiation treatment. Hyperglycemia: -As expected with the steroids. Stable BPH with urinary retention: -Segundo catheter while hospitalized with ongoing diuresis. Continue on Flomax. -Discontinued Segundo catheter on discharge and resume self-catheterization at home Hyperlipidemia: -Continue on statin. Tolerating it well. Generalized weakness: -Home health RN and Bath Aide ordered Discharge date: Patient is doing well. His shortness of breath is stable. Denied any chest pain. Nosignificant arrhythmia on the monitor. Patient was having a LifeVest placed. Discussed with Dr. Mujica who is okay for patient to be discharged to home. Patient had mildly elevated creatinine which need to be further followed as an outpatient with repeat labs. He is currently on Entresto and Lasix. Patient and family was updated that patient need to follow 2 g sodium diet, 40 ounce fluid restrictions and daily weights. Physical exam: Patient is alert, awake, oriented X 3 Vitals Temp BP Pulse RR SpO2 FIO2 Date Wt(kg) Wt(lb) 09/26 13:48 36.3 116/65 58 18 95 RA 09/26 93.7 206 09/26 13:39 36.3 116/65 58 18 95 RA 09/25 94.8 209 09/26 09:05 36.3 127/68 66 18 96 RA 09/24 94.0 207 09/26 05:01 36 116/61 62 16 94 09/22 95.5 210 09/25 19:00 36.6 118/50 85 16 94 09/22 96.2 212 24 Hr Tmax: 36.6 at 09/25 19:00 36 Hr Tmax: 36.6 at 09/25 19:00 Vital Signs are the last 5 in the past 48 hours. Weights display the last 5 within 7 days. Initial Wt: 09/22 96.2 kg 212 lb SHEENT: Neck-supple, No JVD, Oral mucosa- moist Chest: No tenderness Lungs: Bilateral breath sounds heard. No wheezing or rales present CVS: S1, S2 heard. No murmurs. Regular in rate and rhythm Abdomen: soft, No tenderness present. Normal bowel sounds heard. Ext: Mild pedal edema . Labs: Laboratory 09/26/2022 04:40 OUTBOUND SALES CONSULTANT Sodium 139 mmol/L Potassium 3.9 mmol/L BUN 55 mg/dL H Creatinine 1.4 mg/dL H Glucose 126 mg/dL H Calcium 8.9 mg/dL 09/25/2022 06:22 OUTBOUND SALES CONSULTANT Creatinine 1.1 mg/dL Glucose 118 mg/dL H 09/24/2022 05:07 OUTBOUND SALES CONSULTANT NT-proBNP 11,000 pg/mL 09/23/2022 04:30 OUTBOUND SALES CONSULTANT WBC 6.8 K/uL Hemoglobin 14.6 g/dL Hematocrit 45.3 % Platelet 159 K/uL 09/23/2022 01:24 OUTBOUND SALES CONSULTANT Troponin I 0.01 ng/mL 09/22/2022 21:04 OUTBOUND SALES CONSULTANT Troponin I 0.02 ng/mL 09/22/2022 20:57 OUTBOUND SALES CONSULTANT UA Protein (Qual) 1+ UA WBC 11-25 /hpf 09/22/2022 20:47 OUTBOUND SALES CONSULTANT Procalcitonin <0.08 ng/mL 09/22/2022 18:36 OUTBOUND SALES CONSULTANT Troponin I 0.02 ng/mL NT-proBNP 7,350 pg/mL Procalcitonin <0.08 ng/mL Blood Culture NEG (In Progress) Blood Culture NEG (In Progress) Influenza A RNA Not Detected Influenza B RNA Not Detected RSV RNA Not Detected . Radiology: CT ANGIO PE PROTOCOL Event Date: 09/23/2022 10:32 OUTBOUND SALES CONSULTANT IMPRESSION: 1. No CT evidence of pulmonary embolus. 2. Increased soft tissue density in the medial right upper lobe at the site of prior radiation therapy which could be seen in the setting of tumor recurrence. 3. Small bilateral pleural effusions with bibasilar and lingular atelectasis, new compared to prior study. 4. Cardiac enlargement with reflux of contrast into the hepatic veins, findings which could be seen with heart failure. CHEST SINGLE VIEW Event Date: 09/22/2022 19:29 OUTBOUND SALES CONSULTANT IMPRESSION: 1. Previously noted right upper and mid lung opacities are less conspicuous on the current study. 2. Cardiac silhouette enlargement.. Cardiology: [facility] Echocardiogram Complete Event Date: 09/24/2022 12:47 OUTBOUND SALES CONSULTANT CONCLUSIONS: 1. Mildly dilated left ventricle. Severely depressed left ventricular systolic function. The left ventricular ejection fraction is measured by Bailey's biplane method at 25 %. Diastolic dysfunction present, cannot determine Diastolic Dysfunction Grade. 2. Moderately dilated right ventricle. Mild right ventricular hypokinesis. 3. Severely dilated left atrium. 4. Mildly dilated right atrium. 5. Normal appearance of the mitral valve leaflets. Mild to moderate mitral regurgitation. 6. No significant aortic steno sis or insufficiency. Trileaflet but assymetric aortic valve. 7. Normal appearance of the tricuspidvalve. There is moderate tricuspid regurgitation. Right ventricular systolic pressure is consistentwith mild pulmonary hypertension. The estimated Peak RVSP is 47 mmHg. . Discharge Summary Information: Admit Date: Admitted 09/22/2022. Discharge Date: Discharged 09/26/2022. Admitting physician: Binh Jiang M.D.. Consulting physician(s): Susan Montiel MD, Jeremie Mujica M.D.. Admitting diagnosis: Chest pain. Discharge diagnosis: Acute systolic and diastolic heart failure, chest pain, CAD possible atrial fibrillation, presumed COPD exacerbation, history of lung cancer, hyperlipidemia, BPH with urinary retention, hyperlipidemia, deconditioning.. Condition on Discharge: Improved. Disposition: Home, Home health. Discharge Plan from Discharge Orders: Active Care Orders - Ordered -- 09/26/20221131, Registered Nurse Active Care Orders - Ordered -- 09/26/20221131, Continue lifevest as instructed Diet: - Ordered -- 2GM Sodium diet Follow-up instructions post Discharge - Ordered -- Follow up Instructions: Follow up in 4 weeks, Susan Montiel MD Follow-up instructions post Discharge - Ordered -- Follow up Instructions: Follow up with, Luis Fernando Vo M.D., Special Instructions: Please follow-up with Dr. Vo October 10 at 11:[address] [facility]. If unable to keep appt, please call [phone]... Lab Orders after discharge: - Ordered -- 09/26/20221131, Lab(s) to Draw: Basic Metabolic Profile, Magnesium, Lab Draw Date: 10/01/22, PCP, Dr. Mujica Special Discharge Instructions - Ordered -- 09/26/20221131, Check weight daily--if there is increase in weight more than 3 lb in 1 day or 5lb in 3 days--call Dr. Mujica for adjustment in medications., 09/26/20221131 Vital Signs: - Ordered -- 09/26/20221131, Every skilled visit. Discharge Medications: Discharge Medications acetaminophen: 650 mg = 1 tablet(s), Oral, [id number], PRN (pain, mild) albuterol: 2 puff(s), Inhalation, [id number], PRN (shortness of breath), Slow Breath inhale slowly anddeeply allopurinol: 1 tablet(s), Oral, daily, FOR GOUT PREVENTION. aspirin: 81 mg = 1 tablet(s), Oral, daily cephalexin: 250 mg = 1 capsule(s), Oral, qhs fexofenadine: 180 mg = 1 tablet(s), Oral, daily fluticasone-salmeterol: 1 puff(s), Inhalation, bid furosemide: 40 mg = 1 tablet(s), Oral, daily metoprolol: 50 mg = 1 tablet(s), Oral, bid multivitamin: 1 tablet(s), Oral, daily omeprazole: 1 capsule(s), Oral, daily potassium chloride: 20 mEq = 2 tablet(s), Oral, daily predniSONE: Taper from 30 mg q3day by 10 mg till off, Oral, daily prochlorperazine: 10 mg = 1 tablet(s), Oral, [id number], PRN (nausea) rosuvastatin: 1 tablet(s), Oral, HS sacubitril-valsartan: 1 tablet(s), Oral, bid tamsulosin: 0.4 mg = 1 capsule(s), Oral, pm after dinner . Total discharge time spent: 34 min [Electronically Signed on 09/26/2022 02:51 PM OUTBOUND SALES CONSULTANT] Binh Jiang M.D. Nurse Progress note * Ayana Malloy RN: PERFORM Event Display: Progress Note-Nurse Authored Date: Pt went home with and son in private car at 1415. * Cecilia Puckett RN: PERFORM Event Display: Progress Note-Nurse Authored Date: [id number] This AM RN went to administer pt's scheduled morning medications but patient stated that he had already taken them. Pt then proceeded to produce a weekly pill automatic data processing planner box with multiple medications inside. Patient stated that he was unsure of what medications were in the boxes. Pt produced a medication list but medications were unable to be identified. Pharmacist Zana stated that medications could not be verified due to being in unlabeled containers. Dr. Binh Jiang notified of this event. RN also informed MD that morning medications, besides aspirin and methylprednisolone. No new orders received and patient educated to inform hospital staff of all medications being taken to avoid risk o f injury or overdose. Upon arrival of patient's spouse, spouse stated that she would take medications home with her and placed them in her purse. No further incidents to report. This information was also communicated to JOSE Long when patient transferred to division [id number]. * Rhonda Rodrigues RN: PERFORM Event Display: Progress Note-Nurse Authored Date: pt arrived to 65 via er stretcher with RN and PCT. RN at bedside and pt attached to rehabilitation technician. see ronnie and MARGI for assessment. WIRELESS SALES CONSULTANT paged and hospitalist notified. Hospital Summary note * Ayana Malloy RN: PERFORM Event Display: Inpatient Patient Summary Authored Date: [id number] [facility] for your health care. Routine checkups and screenings are an important part of staying healthy. [facility] entire network of care is open, safe and ready to provide you with the very best patient-focused care. BAM SMALL :1935 Visit Date:09/22/[address] [facility] would like to thank you for allowing us to assist you with the healthcare needs. The following information includes patient education materials and information regarding your injury/illness. Our entire staff strives to provide a very good experience for our patients and their families. You may receive, by mail, a survey about your experience with us at [facility].PLEASE ENSURE YOU FOLLOW-UP PER THE INSTRUCTIONS BELOW. Location Information ?[facility]?[address] ?? Your Care Team Admitting Physician - Alfonzo Durham M.D. Attending Physician - Binh Jiang M.D. Consulting Physician - eJremie Mujica M.D., Kristen E MD Primary Care Physician - Luis Fernando Vo M.D. Reason for Your Visit Afib COPD Exacerbation Your Diagnosis Encounter for other specified special examinations Atrial fibrillation COPD exacerbation Shortness of breath Discharge Orders Discharge Instructions ?Follow-up instructions post Discharge?Follow-up Instuctions post Discharge??Follow up with ?Follow-up instructions post Discharge?Provider Search?Luis Fernando Vo ??Abigail ?Follow-up instructions post Discharge?Special Instructions?Please follow-up with Dr. Vo October 10 at 11:30 am in [address] [facility]. ??If unable to keep appt, please call [phone] to reschedule. ?Follow-up instructions post Discharge?Follow-up Instuctions post Discharge??Follow up in 4 weeks ?Follow-up instructions post Discharge?Provider Search?Susan Montiel ??MD ?Special Discharge Instructions?Special Instructions?Check weight daily--if there is increase in weight more than 3 lb in 1 day or 5 lb in 3 days--call Dr. Mujica for adjustment in medications. ?Special Discharge Instructions?Stop Date/Time?09/26/20221131 ?Vital Signs:?Special Instructions?Every skilled visit ?Active Care Orders?Special Instructions?Registered Nurse ?Active Care Orders?Special Instructions?Continue lifevest as instructed ?Lab Orders after discharge:?Lab(s) to draw?Basic Metabolic Profile, Magnesium ?Lab Orders after discharge:?Lab(s) to be drawn on:?11/28/22 ?Lab Orders after discharge:?CallLab results to:?PCP, Dr. Mujica ?Diet:?Diet post Discharge?2GM Sodium diet ?Discharge Patient to:?Discharge Disposition?Home w/Home Health Care ?Discharge Patient to:?Home Health Options?Registered Nurse ?Discharge Patient to:?Home Health Options?Other: (Free-text below) ?Discharge Patient to:?Special Instructions?Bath Aide ?? Nursing Discharge Instructions Inpatient/Observation Instructions: After you leave the hospital, you may call the Nursing Unit within 24 hours of your discharge if you have any questions about these instructions. ??If any medical problems occur or your symptoms get worse, call your doctor immediately. Nursing Unit Phone Number: [phone] Patient Home Medications Returned: No home medications Diet After Discharge: Low Sodium (No Added Salt or 2 gram sodium), Low Fat/Low Cholesterol or HeartHealthy Discharge Medication Planning: Discharge Medication Information provided, Medication Side Effects Information explained and provided, Ability to obtain prescribed medication confirmed, Due to medications you have received, you should not drive a vehicle or operate machinery for 24 hours No qualifying data available. Tests Pending Procedures History ???CABG x 5 - Coronary artery bypass grafts x 5???CE - Cataract extraction???Hip arthroplasty???lumbar back surg 04/2010???Prostate implantation Discharge Vitals Temperature Temporal Artery: 36.3 DegC (09/26/22 13:48:00) Peripheral Pulse Rate:??58 bpm??Low (09/26/22 13:48:00) Respiratory Rate: 18 br/min (09/26/22 13:48:00) Systolic Blood Pressure: 116 mm Hg (09/26/22 13:48:00) Diastolic Blood Pressure: 65 mm Hg (09/26/22 13:48:00) Oxygen Saturation: 95 % (09/26/22 13:48:00) What to do next Scheduled Follow-Up Appointments Saturday 11:30 AM OUTBOUND SALES CONSULTANT ?? With: Luis Fernando Vo M.D. Where: [facility] [address] [phone] Saturday 11:00 AM OUTBOUND SALES CONSULTANT ?? With: Luis Fernando Vo M.D. [facility] [address] [phone] Saturday 11:15 AM OUTBOUND SALES CONSULTANT ?? With: Susan Montiel MD Where: [facility] [address] [facility] [address] [phone] You Need to Schedule the Following Appointments Follow Up with??Susan Montiel When??In 4 weeks 10/24/2022 OUTBOUND SALES CONSULTANT Why: Call for follow up appointment Call PCP if symptoms worsen Return to ED if symptoms worsen Where: [address] [facility] [address] [place] [phone]- Business (1) Follow Up with??Follow up with Primary Care Provider When??In 1 week 10/03/2022 OUTBOUND SALES CONSULTANT Why: Call for follow up appointment Call PCP if symptoms worsen Return to ED if symptoms worsen Follow Up with??Jeremie Mujica When??Within 1 to 2 weeks Why: Call for follow up appointment Call PCP if symptoms worsen Return to ED if symptoms worsen Where: [address] [facility] [phone]- Business (1) The Following Equipment/Services/Treatments Have Been Arranged For You Medications [facility] provided you with a completed list of medications post discharge, share the list of your current medications with your primary care physician; update the information when medications are discontinued, doses are changed, or new medications (including over the counter products) are added; and carry medication information at all times in the event of emergency situations. What How Much When Instructions Side Effects Next Dose New furosemide (Lasix 40 mg oral tablet) 1 tablet(s) By mouth Daily Refills: [address] [facility] metoprolol (Metoprolol Tartrate 50 mg oral tablet) 1 tablet(s) By mouth 2 times a day Refills: 1 Pickup at [facility] New potassium chloride (Potassium Chloride (Eqv-K-Tab) 10 mEq oral tablet, extended release) 2 tablet(s) By mouth Daily Pickup at [facility] predniSONE (predniSONE 10 mg oral tablet) Taper from 30 mg q3day by 10 mg till off By mouth Daily Duration: 9 day(s) Pickup at [facility] New sacubitril-valsartan (Entresto 49 mg-51 mg oral tablet) 1 tablet(s) By mouth 2 times a day Refills: 1 Pickup at [facility] Changed acetaminophen (Tylenol 8 HR Arthritis Pain 650 mg oral tablet, extended release) 1 tablet(s) By mouth Every 8 hours as needed for pain, mild Changed albuterol (albuterol 90 mcg/ inh inhaler) 2 puff(s) Inhalation Every 4 hours as needed for shortness of breath Slow Breath inhale slowly and deeply ?? Changed cephalexin (Keflex 250 mg oral capsule) 1 capsule(s) By mouth Every evening at bedtime Unchanged allopurinol (allopurinol 100 mg oral tablet) 1 tablet(s) By mouth Daily FOR GOUT PREVENTION. ?? Unchanged aspirin (aspirin 81 mg oral enteric coated tablet) 1 tablet(s) By mouth Daily Unchanged fexofenadine (fexofenadine 180 mg oral tablet) 1 tablet(s) By mouth Daily Unchanged fluticasone-salmeterol (Advair Diskus 250 mcg-50 mcg inhalation powder) 1 puff(s) Inhalation 2 times a day Unchanged multivitamin (Multivitamin oral tablet) 1 tablet(s) By mouth Daily Unchanged omeprazole (omeprazole 20 mg oral delayed release capsule) 1 capsule(s) By mouth Daily Unchanged prochlorperazine (prochlorperazine 10 mg oral tablet) 1 tablet(s) By mouth Every 6 hours as needed for nausea Duration: 30 day(s) Unchanged rosuvastatin (rosuvastatin 20 mg oral tablet) 1 tablet(s) By mouth HS Unchanged tamsulosin (Flomax 0.4 mg oral capsule) 1 capsule(s) By mouth Every evening after dinner Capsules should be swallowed whole; do not crush, chew, or open. Pharmacy Information [facility]: [address] [facility] [address] [phone] ?? What How Much When Comments Stop Taking hydroCHLOROthiazide (hydroCHLOROthiazide 25 mg oral tablet) 1 tablet(s) By mouth Every morning Stop Taking naproxen (Aleve Caplet 220 mg oral tablet) 1 tablet(s) By mouth Every 8 hours as needed for headache Immunizations This Visit Allergies NKA Problems Ongoing Acid reflux disease Acute exacerbation of chronic obstructive airways disease J44.1 ASHD (arteriosclerotic heart disease) I25.10 Asthma Asthma J45.909 Bulging lumbar disc Cataract COPD (chronic obstructive pulmonary disease) COPD (chronic obstructive pulmonary disease) J44.9 Coronary arteriosclerosis in [place] artery Elevated cholesterol E78.00 Gout H/O: lung cancer High blood pressure High cholesterol HTN (hypertension) I10 Hyperplasia of prostate Kidney stone Lesion of lung Nocturia Urinary incontinence PatientStated No qualifying data Historical Cancer of prostate Chest pain Deep vein thrombosis (DVT) Medication Information furosemide (oral/injection)?? (fur [place] se mide) ?? Lasix?What is the most important information I should know about furosemide?You should not use this medicine if you are unable to urinate. ?Do not take more than your recommended dose. ??High doses of furosemide may cause irreversible hearing loss.?What is furosemide?Furosemide is a loop diuretic (water pill) that prevents your body from absorbing too much salt. ??This allows the salt to instead be passed in your urine. ?Furosemide is used to treat fluid retention (edema) in people with congestive heart failure, liver disease, or a kidney disorder such as nephrotic syndrome. ?Furosemide is also used to treat high blood pressure (hypertension). ?Furosemide may also be used for purposes not listed in this medication guide. ?What should I discuss with my healthcare provider before taking furosemide?You should not use furosemide if you are allergic to it, or if you are unable to urinate. ?Tell your doctor if you have ever had: ?kidney disease; ?enlarged prostate, bladder obstruction, urination problems; ?cirrhosis or other liver disease; ?an electrolyte imbalance (such as low levels of potassium or magnesium in your blood); ?gout; ?lupus; ?diabetes; or ?a sulfa drug allergy. ?Tell your doctor if you have an MRI (magnetic resonance imaging) or any type of scan using a radioactive dye that is injected into your veins. ??Both contrast dyes and furosemide can harm your kidneys. ?It is not known whether this medicine will harm an unborn baby. Tell your doctor if you are or plan to become . ?It may not be safe to breastfeed while using this medicine. Ask your doctor about any risk. ??Furosemide may slow breast milk production. ?How should I take furosemide?Follow all directions on your prescription label and read all medication guides or instruction sheets. ??Your doctor may occasionally change your dose. ??Use the medicine exactly as directed. ?Furosemide??oral??is taken by mouth. ??Furosemide??injection??is injected into a muscle or given as an infusion into a vein. ??A healthcare provider will give you this injection if you are unableto take the medicine by mouth. ?You may receive your first dose in a hospital or clinic setting if you have severe liver disease. ?Do not take more than your recommended dose. ??High doses of furosemide may cause irreversible hearing loss.?Measure??liquid medicine??carefully. Use the dosing syringe provided, or use a medicine dose-measuring device (not a kitchen spoon). ?Furosemide doses are based on weight in children. ??Your child's dose needs may change if the child gains or loses weight. ?Furosemide will make you urinate more often and you may get dehydrated easily. ??Follow your doctor's instructions about using potassium supplements or getting enough salt and potassium in your diet. ?Your blood pressure will need to be checked often and you may need other medical tests. ?If you have high blood pressure,??keep using this medicine even if you feel well.?High bloodpressure often has no symptoms. ??You may need to use blood pressure medicine for the rest of your life. ?If you need surgery, tell the surgeon ahead of time that you are using furosemide. ?Store at room temperature away from moisture, heat, and light. ??Throw away any unused??oral liquid??after 90 days. ?What happens if I miss a dose?Furosemide is sometimes used only once, so you may not be on a dosing schedule. ??If you are using the medication regularly, take the medicine as soon as you can, but skip the missed dose if it is almost time for your next dose.??Do not??take two doses at one time.?What happens if I overdose?Seek emergency medical attention or call the [employer] Help line at . ?Overdose symptoms may include feeling very thirsty or hot, heavy sweating, hot and dry skin, extreme weakness, or fainting. ?What should I avoid while taking furosemide?Avoid getting up too fast from a sitting or lying position, or you may feel dizzy. ?Avoid becoming dehydrated. ??Follow your doctor's instructions about the type and amount of liquids you should drink while you are taking furosemide. ?Drinking alcohol with this medicine can cause side effects. ?If you have high blood pressure, ask a doctor or pharmacist before taking any medicines that can raise your blood pressure, such as diet pills or qqjov-cyu-gpvw medicine. ?What are the possible side effects of furosemide?Get emergency medical help if you have??signs of an allergic reaction??(hives, difficult breathing, swelling in your face or throat)??or a severe skin reaction??(fever, sore throat, burning in your eyes, skin pain, red or purple skin rash that spreads and causes blistering and peeling). ?Call your doctor at once if you have: ?a light-headed feeling, like you might pass out; ?ringing in your ears, hearing loss; ?muscle spasms or contractions; ?pale skin, easy bruising, unusual bleeding; ?high blood sugar--increased thirst, increased urination, dry mouth, fruity breath odor; ?kidney problems--little or no urination, swelling in your feet or ankles, feeling tired or short of breath;?signs of liver or pancreas problems--loss of appetite, upper stomach pain (that may spread to your back), nausea or vomiting, dark urine, jaundice (yellowing of the skin or eyes); or ?signs of an electrolyte imbalance--dry mouth, thirst, weakness, drowsiness, feeling jitteryor unsteady, vomiting, irregular heartbeats, fluttering in your chest, numbness or tingling, musclecramps, muscle weakness or limp feeling. ?Common side effects may include: ?diarrhea, constipation, loss of appetite; ?numbness or tingling; ?headache, dizziness; or ?blurred vision. ?This is not a complete list of side effects and others may occur. Call your doctor for medical advice about side effects. You may report side effects to FDA at 8-721-DDL-1750.?What other drugs will affect furosemide?Sometimes it is not safe to use certain medications at the same time.?Some drugs can affect your blood levels of other drugs you take, which may increase side effects or make the medications less effective. ?If you also take sucralfate, take your furosemide dose 2 hours before or 2 hours after you takesucralfate. ?Tell your doctor about all your other medicines, especially: ?another diuretic, especially ethacrynic acid; ?chloral hydrate; ?lithium; ?phenytoin; ?an injected antibiotic;?cancer medicine, such as cisplatin;?heart or blood pressure medicine; or ?salicylates such as aspirin, Nuprin Backache Caplet, Kaopectate, KneeRelief, Pamprin Cramp Formula, Pepto-Bismol, Tricosal, Trilisate, and others. ?This list is not complete. ??Other drugs may affect furosemide, including prescription and itli-fhk-wvsofbg medicines, vitamins, and herbal products. ??Not all possible drug interactions are listed here. ?Where can I get more information?Your pharmacist can provide more information about furosemide. ?Remember, keep this and all other medicines out of the reach of children, never share your medicines with others, and use this medication only for the indication prescribed. ?Every effort has been made to ensure that the information provided by [employer]') is accurate, up-to-date, and complete, but no guarantee is made to that effect. Drug information contained herein may be time sensitive. [employer] information has been compiled for use by healthcare practitioners and consumers in the [place] and therefore [employer] does not warrant that uses outside of the [place] are appropriate, unless specifically indicated otherwise. [employer] drug information does not endorse drugs, diagnose patients or recommend therapy. [employer] drug information is an informational resource designed to assist licensed healthcare practitioners in caring for their patients and/or to serve consumers viewing this service as a supplement to, and not a substitutefor, the expertise, skill, knowledge and judgment of healthcare practitioners. The absence of a warning for a given drug or drug combination in no way should be construed to indicate that the drug ordrug combination is safe, effective or appropriate for any given patient. [employer] does not assume any responsibility for any aspect of healthcare administered with the aid of information [employer] provides. The information contained herein is not intended to cover all possible uses, directions, precautions, warnings, drug interactions, allergic reactions, or adverse effects. If you have questions about the drugs you are taking, check with your doctor, nurse or pharmacist.? Copyright 5895-8215 [employer]. Version: 16.01. Revision Date: 03/25/2019. ?? prednisone?? (PRED ni sone) ?? Raeann?What is the most important information I should know about prednisone?You should not use prednisone if you have a fungal infection anywhere in your body. ?You should not stop using prednisone suddenly.?Follow your doctor's instructions about tapering your dose. ?What is prednisone?Prednisone is a steroid that reduces inflammation in the body, and also suppresses your immune system. ?Prednisone is used to treat many different conditions such as hormonal disorders, skin diseases, arthritis, lupus, psoriasis, allergic conditions, ulcerative colitis, Crohn's disease, eye diseases, lung diseases, asthma, tuberculosis, blood cell disorders, kidney disorders, leukemia, lymphoma, m ultiple sclerosis, organ transplant rejection, swelling from a brain tumor or injury. ?Prednisone may also be used for purposes not listed in this medication guide. ?What should I discuss with my healthcare provider before taking prednisone?You should not use prednisone if you are allergic to it, or if you have a fungal infection anywhere in your body. ?Steroid medication can weaken your immune system, making it easier for you to get an infection??or worsening an infection you already have. ??Tell your doctor about any illness or infection you've had within the past several weeks. ?Tell your doctor if you have ever had: ?heart problems, high blood pressure, or a heart attack; ?glaucoma or cataracts; ?herpes infection of the eyes; ?past or present tuberculosis; ?a parasite infection that causes diarrhea (such as threadworms); ?any illness that causes diarrhea; ?underactive thyroid; ?diabetes; ?a stomach ulcer, diverticulitis; ?a colostomy or ileostomy; ?osteoporosis or low bone mineral density (steroid medication can increase your risk of boneloss); ?low levels of calcium or potassium in your blood; ?cirrhosis or other liver disease; ?mental illness or psychosis; or ?a muscle disorder such as myasthenia gravis. ?Long-term use of steroids may lead to bone loss (osteoporosis), especially if you smoke or drink alcohol, if you do not exercise, or if you do not get enough vitamin D or calcium in your diet.?It is not known whether this medicine will harm an unborn baby. Tell your doctor if you are or plan to become . ?You should not breastfeed while using prednisone. ?How should I take prednisone?Follow all directions on your prescription label and read all medication guides or instruction sheets. ??Your doctor may occasionally change your dose. ??Use the medicine exactly as directed. ?Prednisone is taken daily or every other day, depending on the condition being treated. ??You may need to take the medicine at a certain time of day. ??Follow your doctor's instructions about when and how often to take this medicine.?Take with food if prednisone upsets your stomach. ?Measure??liquid medicine??carefully. Use the dosing syringe provided, or use a medicine dose-measuring device (not a kitchen spoon). ?Swallow the??delayed-release tablet??whole and do not crush, chew, or break it. ?Prednisone can weaken (suppress) your immune system, and you may get an infection more easily. Call your doctor if you have signs of infection (fever, weakness, cold or flu symptoms, skin sores, diarrhea, frequent or recurring illness). ?If you have major surgery or a severe injury or infection, your prednisone dose needs may change. ??Make sure any doctor caring for you knows you are using this medicine. ?If you use this medicine long-term, you may need medical tests and vision exams. ?In case of emergency, wear or carry medical identification to let others know you use a steroid. ?You should not stop using prednisone suddenly.?Follow your doctor's instructions about tapering your dose. ?Store at room temperature away from moisture, heat, and light. ?What happens if I miss a dose?Take the medicine as soon as you can, but skip the missed dose if it is almost time for your next dose.??Do not??take two doses at one time.?What happens if I overdose?Seek emergency medical attention or call the Poison Help line at . ?High doses or long-term use of prednisone??can lead to thinning skin, easy bruising, changes inbody fat (especially in your face, neck, back, and waist), increased acne or facial hair, menstrualproblems, impotence, or loss of interest in sex. ?What should I avoid while taking prednisone?Do not receive a 'live' vaccine while using prednisone.?The vaccine may not work as well andmay not fully protect you from disease. ??Live vaccines include measles, mumps, rubella (MMR), polio, rotavirus, typhoid, yellow fever, varicella (chickenpox), zoster (shingles), and nasal flu (influenza) vaccine. ?Avoid being near people who are sick or have infections. ??Call your doctor for preventive treatment if you are exposed to chickenpox or measles. ??These conditions can be serious or even fatal in people who are using steroid medicine. ?Avoid drinking alcohol. ?What are the possible side effects of prednisone?Get emergency medical help if you have??signs of an allergic reaction: ??hives; difficult breathing; swelling of your face, lips, tongue, or throat. ?Call your doctor at once if you have: ?muscle pain or weakness; ?blurred vision, tunnel vision, eye pain, or seeing halos around lights; ?severe depression, changes in personality, unusual thoughts or behavior;?bloody or tarry stools, coughing up blood or vomit that looks like coffee grounds; ?swelling, rapid weight gain, feeling short of breath; ?irregular heartbeats; ?severe headache, pounding in your neck or ears; ?decreased adrenal gland hormones--muscle weakness, tiredness, diarrhea, nausea, menstrual changes, skin discoloration, craving salty foods, and feeling light-headed; or ?low potassium level--leg cramps, constipation, irregular heartbeats, fluttering in your chest, increased thirst or urination, numbness or tingling, muscle weakness or limp feeling. ?Prednisone can affect growth in children. ??Tell your doctor if your child is not growing at a normal rate while using this medicine. ?Common side effects may include: ?weight gain (especially in your face or your upper back and torso);?increased appetite; ?mood changes, trouble sleeping; ?changes in your menstrual periods; ?problems with memory or thought; ?muscle or joint pain; ?weakness; ?headache, dizziness, spinning sensation; ?nausea, bloating, loss of appetite;?slow wound healing; or ?acne, increased sweating, thinning skin, bruising, pinpoint spots under your skin. ?This is not a complete list of side effects and others may occur. Call your doctor for medical advice about side effects. You may report side effects to FDA at 6-161-ARH-6666. ?What other drugs will affect prednisone?Sometimes it is not safe to use certain medications at the same time.?Some drugs can affect your blood levels of other drugs you take, which may increase side effects or make the medications less effective. ?Tell your doctor about all your current medicines.?Many drugs can affect prednisone, especially: ?bupropion; ?cyclosporine; ?digoxin; ?ketoconazole; ?an antibiotic; ? control pills or hormone replacement therapy; ?a diuretic or 'water pill'; ?insulin or oral diabetes medicine; ?a blood thinner--warfarin, Coumadin, Jantoven; or ?NSAIDs (nonsteroidal anti-inflammatory drugs)--aspirin, ibuprofen (Advil, Motrin), naproxen(Aleve), celecoxib, diclofenac, indomethacin, meloxicam, and others. ?This list is not complete and many other drugs may affect prednisone.??This includes prescription and wtex-uve-kotnrmo medicines, vitamins, and herbal products. Not all possible drug interactionsare listed here. ?Where can I get more information?Your pharmacist can provide more information about prednisone. ?Remember, keep this and all other medicines out of the reach of children, never share your medicines with others, and use this medication only for the indication prescribed. ?Every effort has been made to ensure that the information provided by [employer] is accurate, up-to-date, and complete, but no guarantee is made to that effect. Drug information contained herein may be time sensitive. [employer] information has been compiled for use by healthcare practitioners and consumers in the [place] and therefore [employer] does not warrant that uses outside of the [place] are appropriate, unless specifically indicated otherwise. [employer] drug information does not endorse drugs, diagnose patients or recommend therapy. [employer] drug information is an informational resource designed to assist licensed healthcare practitioners in caring for their patients and/or to serve consumers viewing this service as a supplement to, and not a substitutefor, the expertise, skill, knowledge and judgment of healthcare practitioners. The absence of a warning for a given drug or drug combination in no way should be construed to indicate that the drug ordrug combination is safe, effective or appropriate for any given patient. [employer] does not assume any responsibility for any aspect of healthcare administered with the aid of information [employer] provides. The information contained herein is not intended to cover all possible uses, directions, precautions, warnings, drug interactions, allergic reactions, or adverse effects. If you have questions about the drugs you are taking, check with your doctor, nurse or pharmacist.? Copyright 9614-6813 [employer]. Version: 10.. Revision Date: 01/29/2019. ?? potassium chloride (oral/injection)?? (stephanie TASS ee um) ?? Kyrie Potassium 99, Klor-Con, K-Tab, Potassium Chloride Proamp?What is the most important information I should know about potassium chloride?You should not use this medicine if you have high levels of potassium in your blood (hyperkalemia), or if you also take a 'potassium-sparing' diuretic. ?What is potassium chloride?Potassium is a mineral that is needed for several functions of your body, especially the beating of your heart. ?Potassium chloride is used to prevent or to treat low blood levels of potassium (hypokalemia). ??Potassium levels can be low as a result of a disease or from taking certain medicines, or after a prolonged illness with diarrhea or vomiting. ?Potassium chloride may also be used for purposes not listed in this medication guide. ?What should I discuss with my healthcare provider before taking potassium chloride?You should not use potassium chloride if you are allergic to it, or if: ?you have high levels of potassium in your blood (hyperkalemia); or ?you take a 'potassium-sparing' diuretic (water pill) such as amiloride, spironolactone, or triamterene. ?Tell your doctor if you have ever had: ?heart problems; ?high blood pressure; ?liver or kidney disease; ?a large tissue injury such as a severe burn; ?an electrolyte imbalance (such as low levels of calcium or magnesium in your blood);?trouble swallowing; ?slow digestion; ?stomach bleeding, an ulcer, or a blockage in your stomach or intestines;?an adrenal gland disorder; ?diabetes; or ?severe dehydration. ?Tell your doctor if you are or .?How should I take potassium chloride?Follow all directions on your prescription label and read all medication guides or instruction sheets. ??Your doctor may occasionally change your dose. ??Use the medicine exactly as directed. ?Potassium chloride??oral??is taken by mouth. ??Potassium chloride??injection??is given as a slow infusion into a vein. ?A healthcare provider will give you this medicine by??injection??if you have severely low potassium levels. ??Tell your caregivers if you feel any burning, pain, or swelling around the IV needle when potassium chloride is injected. ?Take??oral??potassium chloride with food if the medicine upsets your stomach. ?Always follow directions on the medicine label about giving this medicine to a child. ?Take the??tablet??or??capsule??with a full glass of water. ?Do not crush, chew, or suck on a potassium tablet or capsule. ??Sucking on the pill could irritate your mouth or throat. ?Measure??liquid medicine??carefully. Use the dosing syringe provided, or use a medicine dose-measuring device (not a kitchen spoon). ??Mix the oral solution with least 4 ounces of water before taking it. ?You may need to follow a special diet while using potassium chloride. ??Follow all instructionsof your doctor or dietitian. ??Learn about the foods to eat or avoid to help control your condition. ?Call your doctor if you have trouble swallowing a potassium chloride capsule or tablet. ??You may be able to dissolve the tablet in water, or mix the medicine from a capsule with soft food. ??Carefully follow your doctor's instructions. ?You may need frequent medical tests. ??Your heart function may need to be checked using an electrocardiograph or ECG (sometimes called an EKG). Even if you have no symptoms, tests can help your doctor determine if this medicine is effective. ?Some??tablets??are made with a shell that is not absorbed or melted in the body. Part of this shell may appear in your stool. This is normal and will not make the medicine less effective. ?Store at room temperature away from moisture, heat, and light. ??Keep the medication in a closed container. ?What happens if I miss a dose?Take the medicine as soon as you can, but skip the missed dose if it is almost time for your next dose.??Do not??take two doses at one time.?What happens if I overdose?Seek emergency medical attention or call the Poison Help line at . ?Overdose symptoms may include stomach pain, vomiting, irregular heartbeats, chest pain, muscle weakness, loss of movement, numbness or tingling, or feeling light-headed.?What should I avoid while taking potassium chloride?Do not use potassium supplements or other products that contain potassium, unless your doctor has told you to. ??Salt substitutes or low-salt foods often contain potassium. ??Read the label of any food or medicine to see if it contains potassium. ?What are the possible side effects of potassium chloride?Get emergency medical help if you have??signs of an allergic reaction:?hives; difficult breathing; swelling of your face, lips, tongue, or throat. ?Stop using potassium chloride and call your doctor at once if you have: ?severe throat irritation; ?chest pain, trouble breathing; ?pain, burning, bruising, swelling, irritation, or skin changes where the medicine was injected; ?stomach bloating, severe vomiting, severe stomach pain; ?high potassium level--nausea, weakness, tingly feeling, chest pain, irregular heartbeats, loss of movement; or ?signs of stomach bleeding--bloody or tarry stools, coughing up blood or vomit that looks like coffee grounds. ?Common side effects may include: ?nausea, vomiting, diarrhea; ?gas, stomach pain; or ?the appearance of a potassium chloride tablet in your stool. ?This is not a complete list of side effects and others may occur. Call your doctor for medical advice about side effects. You may report side effects to FDA at 0-964-PYE-5869. ?What other drugs will affect potassium chloride?Tell your doctor about all your other medicines, especially: ?medicine to prevent organ transplant rejection; ?a diuretic or 'water pill'; or ?heart or blood pressure medication. ?This list is not complete. ??Other drugs may affect potassium chloride, including prescription and pbpf-qhc-tlmfzlk medicines, vitamins, and herbal products. ??Not all possible drug interactions are listed here. ?Where can I get more information?Your pharmacist can provide more information about potassium chloride. ?Remember, keep this and all other medicines out of the reach of children, never share your medicines with others, and use this medication only for the indication prescribed. ?Every effort has been made to ensure that the information provided by [employer]. ('[employer]') is accurate, up-to-date, and complete, but no guarantee is made to that effect. Drug information contained herein may be time sensitive. [employer] information has been compiled for use by healthcare practitioners and consumers in the [place] and therefore [employer] does not warrant that uses outside of the [place] are appropriate, unless specifically indicated otherwise. [employer] drug information does not endorse drugs, diagnose patients or recommend therapy. [employer] drug information is an informational resource designed to assist licensed healthcare practitioners in caring for their patients and/or to serve consumers viewing this service as a supplement to, and not a substitutefor, the expertise, skill, knowledge and judgment of healthcare practitioners. The absence of a warning for a given drug or drug combination in no way should be construed to indicate that the drug ordrug combination is safe, effective or appropriate for any given patient. [facility] does not assume any responsibility for any aspect of healthcare administered with the aid of information [facility] provides. The information contained herein is not intended to cover all possible uses, directions, precautions, warnings, drug interactions, allergic reactions, or adverse effects. If you have questions about the drugs you are taking, check with your doctor, nurse or pharmacist.? Copyright 8672-0795 [id number]. Version: 14.01. Revision Date: 03/31/2020. ?? sacubitril and valsartan?? (sak UE bi tril ??and ??ned gan) ?? Entresto?What is the most important information I should know about sacubitril and valsartan?Do not use if you are , and tell your doctor right away if you become .?If you have diabetes,??do not use sacubitril and valsartan together with any medication that contains aliskiren (a blood pressure medicine). ?What is sacubitril and valsartan?Sacubitril and valsartan are blood pressure medicines. Valsartan is an angiotensin II receptor ric (sometimes called an ARB). ?Sacubitril and valsartan is a combination medicine that is used in adults with chronic heart failure. This medicine helps lower the risk of needing to be hospitalized when symptoms get worse, andhelps lower the risk of from heart failure. ?Sacubitril and valsartan is also used to treat heart failure in children who are at least 1 year old. ?Sacubitril and valsartan is usually given together with other heart medications. ?Sacubitril and valsartan may also be used for purposes not listed in this medication guide. ?What should I discuss with my healthcare provider before taking sacubitril and valsartan?You should not use this medicine if you are allergic to sacubitril or valsartan (Diovan), or ifyou have ever had a severe allergic reaction to a blood pressure medication such as:?an GREGG inhibitor--benazepril, captopril, enalapril, fosinopril, lisinopril, moexipril, perindopril, quinapril, ramipril, trandolapril (Lotensin, Vasotec, Prinivil, Accupril, Mavik, and others); or ?an ARB--azilsartan, candesartan, eprosartan, irbesartan, losartan, olmesartan, telmisartan,valsartan (Atacand, Avapro, Benicar, Diovan, Edarbi, Micardis, Teveten, and others). ?You should not take sacubitril and valsartan within 36 hours before or after you have taken anyACE inhibitor medication. ?If you have diabetes,??do not use sacubitril and valsartan together with any medication that contains aliskiren (a blood pressure medicine). ?You may also need to avoid taking sacubitril and valsartan with aliskiren??if you have kidney disease. ?Tell your doctor if you have ever had: ?liver disease; ?hereditary angioedema; or ?if you are on a [id number]. ?Do not use if you are , and tell your doctor right away if you become .?Sacubitril and valsartan can cause injury or to the unborn baby if you take the medicine during your second or third trimester.?You should not breastfeed while using this medicine. ?How should I take sacubitril and valsartan?Follow all directions on your prescription label and read all medication guides or instruction sheets. Your doctor may occasionally change your dose. Use the medicine exactly as directed. ?You may take this medicine with or without food.?Sacubitril and valsartan doses are based on weight in children. Your child's dose needs may change if the child gains or loses weight. ?If you cannot swallow a tablet whole,??a pharmacist can make an oral suspension (liquid). Tell the doctor if the person taking this medicine has trouble swallowing the tablet.?Shake the??oral suspension??(liquid) before you measure a dose. Use the dosing syringe provided, or use a medicine dose-measuring device (not a kitchen spoon). ?Your blood pressure will need to be checked often. Your kidney function may also need to be checked. ?Store at room temperature away from moisture and heat. Throw away any??oral suspension??not used within 15 days after it was mixed. Do not keep the oral suspension in a refrigerator. ?What happens if I miss a dose?Take the medicine as soon as you can, but skip the missed dose if it is almost time for your next dose.??Do not??take two doses at one time.?What happens if I overdose?Seek emergency medical attention or call the Poison Help line at . ?What should I avoid while taking sacubitril and valsartan?Do not use potassium supplements or salt substitutes, unless your doctor has told you to. ?Avoid getting up too fast from a sitting or lying position, or you may feel dizzy. ?What are the possible side effects of sacubitril and valsartan?Get emergency medical help if you have??signs of an allergic reaction:?hives; difficulty breathing; swelling of your face, lips, tongue, or throat. You may be more likely to have an allergic reaction if you are -[place]. ?Also call your doctor at once if you have: ?a light-headed feeling, like you might pass out;?extreme tiredness; ?high potassium--slow heart rate, weak pulse, muscle weakness, tingly feeling; or ?kidney problems--little or no urination, rapid weight gain, painful or difficult urination,swelling in your hands, feet, or ankles. ?Common side effects may include: ?kidney problems; ?high potassium; ?dizziness, feeling light-headed; or ?cough. ?This is not a complete list of side effects and others may occur. Call your doctor for medical advice about side effects. You may report side effects to FDA at 5-751-HMU-6670. ?What other drugs will affect sacubitril and valsartan?Tell your doctor about all your other medicines, especially: ?aliskiren; ?lithium; ?any other heart or blood pressure medicines; ?a diuretic or 'water pill'; ?medicine or mineral supplements that contain potassium; or ?NSAIDs (nonsteroidal anti-inflammatory drugs)--aspirin, ibuprofen (Advil, Motrin), naproxen(Aleve), celecoxib, diclofenac, indomethacin, meloxicam, and others. ?This list is not complete. Other drugs may affect sacubitril and valsartan, including prescription and [id number]-enn-[id number] medicines, vitamins, and herbal products. Not all possible drug interactions are listed here. ?Where can I get more information?Your pharmacist can provide more information about sacubitril and valsartan. ?Remember, keep this and all other medicines out of the reach of children, never share your medicines with others, and use this medication only for the indication prescribed. ?Every effort has been made to ensure that the information provided by [employer]. ('[employer]') is accurate, up-to-date, and complete, but no guarantee is made to that effect. Drug information contained herein may be time sensitive. [employer] information has been compiled for use by healthcare practitioners and consumers in the [place] and therefore [employer] does not warrant that uses outside of the [place] are appropriate, unless specifically indicated otherwise. [employer] drug information does not endorse drugs, diagnose patients or recommend therapy. [employer] drug information is an informational resource designed to assist licensed healthcare practitioners in caring for their patients and/or to serve consumers viewing this service as a supplement to, and not a substitutefor, the expertise, skill, knowledge and judgment of healthcare practitioners. The absence of a warning for a given drug or drug combination in no way should be construed to indicate that the drug ordrug combination is safe, effective or appropriate for any given patient. [employer] does not assume any responsibility for any aspect of healthcare administered with the aid of information [employer] provides. The information contained herein is not intended to cover all possible uses, directions, precautions, warnings, drug interactions, allergic reactions, or adverse effects. If you have questions about the drugs you are taking, check with your doctor, nurse or pharmacist.? Copyright [id number] [employer]. Version: 5.01. Revision Date: 02/13/2021. ? Education Materials What Is COPD? COPD stands for chronic obstructive pulmonary disease. It means the airways in your lungs are blocked (obstructed). This makes it hard to breathe.??You may have trouble with daily activities because of shortness of breath. Over time the shortness of breath often gets worse. This makes it harder to take care of yourself and take part in activities. Chronic bronchitis and emphysema are 2 common types of COPD. How did I get COPD? Most people get COPD from smoking. Cigarette smoke damages lungs. This can develop into COPD over many years. How COPD affects you COPD makes you work harder to breathe. Air may get trapped in the lungs. This prevents your lungs from filling completely with fresh oxygen-filled air when you breathe in (inhale). It's harder to take deep breaths, especially when you are active and start breathing faster. Over time your lungs may become enlarged, filled with air that does not transfer oxygen into the blood. These problems lead to shortness of breath (also called dyspnea). Hoarse, whistling breathing (wheezing) and a chronic cough are common. So is feeling tired and worn out (fatigue).?? What happens in chronic bronchitis? The cells in the airways make more mucus than normal. The mucus builds up, narrowing the airways. This means less air travels into and out of the lungs. The lining of the airways may also become swollen (inflamed). This causes the airways to narrow even more. What happens in emphysema? The small airways are damaged and lose their stretchiness. The airways collapse when you exhale. This causes air to get trapped in the air sacs. This means that less oxygen enters the blood vessels. And less oxygen is delivered to all of the cells of your body. This makes it hard to breathe. Damage to cilia Cilia are small hairs that line and protect the airways. Smoking damages the cilia. Damaged cilia can???t sweep mucus and particles away. Some of the cilia are destroyed. This damage makes COPD worse. ?? 3352-1792 [employer] All rights reserved. This information is not intended as a substitute for professional medical care. Always follow your healthcare professional's instructions. Patient Portal Information [employer]. is a secure online tool where you can access your personal health records, test results, visit summaries or request follow up appointments. The portal can be accessed on the hospital website [email or web address] where you can self-enroll if you did not do so on registration. If you need assistance logging in, please call . For questions regarding medications or other healthconcerns after discharge, please contact your physician???s office. [facility]:[id number] Location:[facility] Registration Date and Time:09/22/2022 17:42 OUTBOUND SALES CONSULTANT Primary Care Physician: Luis Fernando Vo M.D., Attending Physician: Binh Jiang M.D., Designated Caregiver: Home Caregiver Identification: Patient identifies a Caregiver ?Home Caregiver Name/Relationship: BRANDY COUCH (SPOUSE) ?Home Caregiver I have received the above patient education materials/instructions and have verbalized understanding. Patient/Molding Line Operator Signature: Date/Time: Designated Caregiver Signature: Date/Time: Unable to contact Designated Caregiver upon discharge. Provider Signature: Date/Time: Final Medication List We have provided this final list of active medications as a courtesy so that you can easily update your home records and provide to your physician(s). These are the only medications that you should be taking. Please review carefully and contact your doctor prior to taking any medications NOT on this list. New furosemide (Lasix 40 mg oral tablet)1 tablet(s) By mouth daily. Refills: 1. metoprolol (Metoprolol Tartrate 50 mg oral tablet)1 tablet(s) By mouth 2 times a day. Refills: 1. potassium chloride (Potassium Chloride (Eqv-K-Tab) 10 mEq oral tablet, extended release)2 tablet(s)By mouth daily. Refills: 0. predniSONE (predniSONE 10 mg oral tablet)Taper from 30 mg q3day by 10 mg till off By mouth daily for 9 day(s). Refills: 0. sacubitril-valsartan (Entresto 49 mg-51 mg oral tablet)1 tablet(s) By mouth 2 times a day. Refills:1. Changed acetaminophen (Tylenol 8 HR Arthritis Pain 650 mg oral tablet, extended release)1 tablet(s) By mouth every 8 hours as needed pain, mild. albuterol (albuterol 90 mcg/inh inhaler)2 puff(s) Inhalation every 4 hours as needed shortness of breath. Slow Breath inhale slowly and deeply . Refills: 3. cephalexin (Keflex 250 mg oral capsule)1 capsule(s) By mouth every evening at bedtime. Unchanged allopurinol (allopurinol 100 mg oral tablet)1 tablet(s) By mouth daily. FOR GOUT PREVENTION.. Refills: 3. aspirin (aspirin 81 mg oral enteric coated tablet)1 tablet(s) By mouth daily. fexofenadine (fexofenadine 180 mg oral tablet)1 tablet(s) By mouth daily. fluticasone-salmeterol (Advair Diskus 250 mcg-50 mcg inhalation powder)1 puff(s) Inhalation 2 timesa day. Refills: 10. multivitamin (Multivitamin oral tablet)1 tablet(s) By mouth daily. omeprazole (omeprazole 20 mg oral delayed release capsule)1 capsule(s) By mouth daily. Refills: 3. prochlorperazine (prochlorperazine 10 mg oral tablet)1 tablet(s) By mouth every 6 hours as needed nausea for 30 day(s). Refills: 1. rosuvastatin (rosuvastatin 20 mg oral tablet)1 tablet(s) By mouth HS. Refills: 3. tamsulosin (Flomax 0.4 mg oral capsule)1 capsule(s) By mouth every evening after dinner. Discontinued hydroCHLOROthiazide (hydroCHLOROthiazide 25 mg oral tablet)1 tablet(s) By mouth every morning. Refills: 3. naproxen (Aleve Caplet 220 mg oral tablet)1 tablet(s) By mouth every 8 hours as needed headache. Progress note * Marisol Dye PA: MODIFY, SIGN, MODIFY, SIGN, PERFORM, SIGN, VERIFY Event Display: Progress Note-Physician Authored Date: Patient: BAM SMALL Age: 86 years Sex: Male : 1935 Associated Diagnoses: None Author: Marisol Dye Notes HF Update: Pt's weight is down to 93.7 kg today from 96.2 kg on admission. Pt currently being fitted with Life Vest. Contacted with Dr. Mujica's office for f/u appt and Wendy will call me back. [Electronically Signed on 09/26/2022 12:23 PM OUTBOUND SALES CONSULTANT] DANDRE Barnett [Electronically Signed on 09/26/2022 01:05 PM OUTBOUND SALES CONSULTANT] DANDRE Barnett * Marisol Dye: PERFORM Event Display: Progress Note-Physician Authored Date: Spoke with Wendy and Dr. Mujica would like pt to f/u with Dr. Vo, left message with office to schedule pt's hospital f/u appt with Dr. Vo. [Electronically Signed on 09/26/2022 01:05 PM OUTBOUND SALES CONSULTANT] DANDRE Barnett * Marisol Dye PA: PERFORM Event Display: Progress Note-Physician Authored Date: Dr. Vo' office returned call, appt scheduled for October 10 at 11:30 am, appt card given to pt, pt aware to call and reschedule if needed. [Electronically Signed on 09/26/2022 01:27 PM OUTBOUND SALES CONSULTANT] DANDRE Barnett * Susan Montiel MD: VERIFY, PERFORM, SIGN Event Display: Progress Note-Physician Authored Date: Patient: BAM SMALL Age: 86 years Sex: Male : 1935 Associated Diagnoses: None Author: Susan Montiel MD Impression and Plan Impression: Shortness of breath Acute on chronic heart failure Possible COPD exacerbation History of lung cancer status post radiation with some enlargement and nodule on CT Coronary artery disease. Plan: Continue prednisone taper. Continue diuresis. Off oxygen. Ambulation. Subjective Patient Concerns: Respiratory status stable. No wheezing. Patient Exam Vitals and Weights: Vitals Temp BP Pulse RR SpO2 FIO2 Date Wt(kg) Wt(lb) 09/26 05:01 36 116/61 62 16 94 09/26 93.7 206 09/25 19:00 36.6 118/50 85 16 94 09/25 94.8 209 09/25 17:09 36.2 123/67 67 16 95 09/24 94.0 207 09/25 10:56 36 106/66 66 18 96 09/22 95.5 210 09/25 07:29 36.3 111/71 71 18 97 09/22 96.2 212 24 Hr Tmax: 36.6 at 09/25 19:00 36 Hr Tmax: 36.6 at 09/25 19:00 Vital Signs are the last 5 in the past 48 hours. Weights display the last 5 within 7 days. Initial Wt: 09/22 96.2 kg 212 lb . General: Alert and oriented, No acute distress. HENT: Normocephalic, Oral mucosa is moist. Neck: Supple, Non-tender. Cardiovascular: Normal rate, Regular rhythm, No murmur, No edema. Pulmonary: Lungs are clear to auscultation, Respirations are non-labored. GI: Soft, Non-tender. Skin: Warm. Nails: No cyanosis. Recent Results Lab Results: Labs (Last four charted values) WBC 6.8 (SEP 23) 7.0 (SEP 22) Hgb 14.6 (SEP 23) 14.9 (SEP 22) Hct 45.3 (SEP 23) 45.7 (SEP 22) Plt 159 (SEP 23) 169 (SEP 22) Na 139 (SEP 26) 139 (SEP 25) 139 (SEP 24) 139 (SEP 23) K 3.9 (SEP 26) 3.6 (SEP 25) 4.0 (SEP 24) 4.4 (SEP 23) CO2 H 33 (SEP 26) 28 (SEP 25) 24 (SEP 24) 25 (SEP 23) Cl 101 (SEP 26) 106 (SEP 25) 107 (SEP 24) H 109 (SEP 23) Cr H 1.4 (SEP 26) 1.1 (SEP 25) 1.1 (SEP 24) 0.9 (SEP 23) BUN H 55 (SEP 26) H 42 (SEP 25) H 38 (SEP 24) H 25 (SEP 23) Glucose Random H 126 (SEP 26) H 118 (SEP 25) H 165 (SEP 24) H 179 (SEP 23) Mg 1.9 (SEP 26) 1.9 (SEP 25) 1.8 (SEP 24) 1.8 (SEP 23) Phos 3.3 (SEP 23) Ca 8.9 (SEP 26) 8.7 (SEP 25) 9.5 (SEP 24) 9.1 (SEP 23) INR 1.1 (SEP 22) PTT 29.2 (SEP 22) Troponin 0.01 (SEP 23) 0.02 (SEP 22) 0.02 (SEP 22) . Radiology/Imaging: X-Ray: COMPLETED RADIOLOGY IMAGING STUDIES: No Imaging Results in the last 36 hours. [Electronically Signed on 09/26/2022 09:04 AM OUTBOUND SALES CONSULTANT] Susan Montiel MD * Binh Jiang M.D.: PERFORM, SIGN, VERIFY Event Display: Progress Note-Physician Authored Date: Patient: BAM SMALL Age: 86 years Sex: Male : 1935 Associated Diagnoses: None Author: Binh Jiang M.D. Subjective Patient Concerns: Follow-up on shortness of breath, chest heaviness. Subjective Information: Patient was seen and examined. He is doing well. His shortness of breath isimproving. Denied any chest pain. No nausea or vomiting. No fever or chills. Patient Exam Vitals and Weights: Vitals Temp BP Pulse RR SpO2 FIO2 Date Wt(kg) Wt(lb) 09/25 10:56 36 106/66 66 18 96 RA 09/25 94.8 209 09/25 07:29 36.3 111/71 71 18 97 RA 09/24 94.0 207 09/25 06:34 36.3 128/54 81 18 94 RA 09/22 95.5 210 09/24 20:48 ---- 123/62 63 -- --- RA 09/22 96.2 212 09/24 20:47 36.4 123/62 63 18 94 RA 24 Hr Tmax: 36.4 at 09/24 20:47 36 Hr Tmax: 36.6 at 09/24 05:21 Vital Signs are the last 5 in the past 48 hours. Weights display the last 5 within 7 days. Initial Wt: 09/22 96.2 kg 212 lb . General: Alert and oriented. HENT: Normocephalic. Neck: Supple, Non-tender. Cardiovascular: Normal rate, Regular rhythm. Pulmonary: Lungs are clear to auscultation. GI: Soft, Non-tender, Normal bowel sounds. Extremities: Pedal edema: 1+ bilateral present. Neuro: Alert, No focal defects. Recent Results Lab Results: Labs (Last four charted values) WBC 6.8 (SEP 23) 7.0 (SEP 22) Hgb 14.6 (SEP 23) 14.9 (SEP 22) Hct 45.3 (SEP 23) 45.7 (SEP 22) Plt 159 (SEP 23) 169 (SEP 22) Na 139 (SEP 25) 139 (SEP 24) 139 (SEP 23) 143 (SEP 22) K 3.6 (SEP 25) 4.0 (SEP 24) 4.4 (SEP 23) 4.3 (SEP 22) CO2 28 (SEP 25) 24 (SEP 24) 25 (SEP 23) 24 (SEP 22) Cl 106 (SEP 25) 107 (SEP 24) H 109 (SEP 23) H 110 (SEP 22) Cr 1.1 (SEP 25) 1.1 (SEP 24) 0.9 (SEP 23) 1.1 (SEP 22) BUN H 42 (SEP 25) H 38 (SEP 24) H 25 (SEP 23) H 28 (SEP 22) Glucose Random H 118 (SEP 25) H 165 (SEP 24) H 179 (SEP 23) H 125 (SEP 22) Mg 1.9 (SEP 25) 1.8 (SEP 24) 1.8 (SEP 23) 1.8 (SEP 22) Phos 3.3 (SEP 23) Ca 8.7 (SEP 25) 9.5 (SEP 24) 9.1 (SEP 23) 9.5 (SEP 22) INR 1.1 (SEP 22) PTT 29.2 (SEP 22) Troponin 0.01 (SEP 23) 0.02 (SEP 22) 0.02 (SEP 22) . Impression and Plan Impression: Acute on chronic heart failure with reduced ejection fraction. -Diuresis with IV Lasix and transition to oral in next 24 hours -Echocardiogram results reviewed which showed ejection fraction of 25%. Patient also had mild to moderate mitral regurgitation and moderate tricuspid regurgitation. He had elevated RSVP. -Cardiology was consulted and appreciate input from Dr. Mujica -Continue on metoprolol, Entresto-increased dose of metoprolol -Plan for LifeVest on discharge Chest pain, CAD: History of CABG -MO was ruled out. Monitor on the rehabilitation technician. Continue on aspirin, statin, beta-ric. Possible atrial fibrillation: -There was report of atrial fibrillation. Currently in normal sinus rhythm. -Continue metoprolol and aspirin. Presumed COPD exacerbation: -Continue on bronchodilators. Multiplex PCR is negative. -Transition to oral prednisone with tapering doses. -Antibiotics discontinued as procalcitonin normal -Continue on Breo Ellipta. Appreciate pulmonary input. History of lung cancer: -S/p radiation treatment. Hyperglycemia: -As expected with the steroids. Accu-Cheks and sliding scale insulin will be continued BPH with urinary retention: -Segundo catheter ordered with ongoing diuresis. Continue on Flomax. -Plan to discontinue Segundo catheter on discharge and resume self-catheterization at home Hyperlipidemia: -Continue on statin. Tolerating it well. Generalized weakness: -PT, OT evaluation will be ordered. DVT prophylaxis: SCD/heparin. CODE STATUS: Full code Disposition: Possible discharge in a.m. to home. Miscellaneous Diet: Diet - Modified -- 09/22/2022 2310, No Added Salt, Heart Healthy . Prophylaxis: VTE Prophylaxis: Last Heparin Dose : heparin 09/25/2022 15:28 OUTBOUND SALES CONSULTANT heparin 5,000 unit(s) unit(s) 09/25/2022 06:21 OUTBOUND SALES CONSULTANT heparin 5,000 unit(s) unit(s) 09/24/2022 20:47 OUTBOUND SALES CONSULTANT heparin 5,000 unit(s) unit(s) . [Electronically Signed on 09/25/2022 04:31 PM OUTBOUND SALES CONSULTANT] Binh Jiang M.D. * Susan Montiel MD: PERFORM, SIGN, VERIFY Event Display: Progress Note-Physician Authored Date: Patient: BAM SMALL Age: 86 years Sex: Male : 1935 Associated Diagnoses: None Author: Susan Montiel MD Impression and Plan Impression: Shortness of breath Acute on chronic heart failure Possible COPD exacerbation History of lung cancer status post radiation with some enlargement and nodule on CT Coronary artery disease. Plan: Continue prednisone taper. Continue diuresis. Off oxygen. Ambulation. Subjective Patient Concerns: No issues overnight shortness of breath improving.. Patient Exam Vitals and Weights: Vitals Temp BP Pulse RR SpO2 FIO2 Date Wt(kg) Wt(lb) 09/25 10:56 36 106/66 66 18 96 RA 09/25 94.8 209 09/25 07:29 36.3 111/71 71 18 97 RA 09/24 94.0 207 09/25 06:34 36.3 128/54 81 18 94 09/22 95.5 210 09/24 20:48 ---- 123/62 63 -- --- RA 09/22 96.2 212 09/24 20:47 36.4 123/62 63 18 94 RA 24 Hr Tmax: 36.4 at 09/24 20:47 36 Hr Tmax: 36.6 at 09/24 05:21 Vital Signs are the last 5 in the past 48 hours. Weights display the last 5 within 7 days. Initial Wt: 09/22 96.2 kg 212 lb . General: Alert and oriented, No acute distress. HENT: Normocephalic, Oral mucosa is moist. Neck: Supple, Non-tender. Cardiovascular: Normal rate, Regular rhythm, No murmur, No edema. Pulmonary: Lungs are clear to auscultation, Respirations are non-labored. GI: Soft, Non-tender. Skin: Warm. Nails: No cyanosis. Recent Results Lab Results: Labs (Last four charted values) WBC 6.8 (SEP 23) 7.0 (SEP 22) Hgb 14.6 (SEP 23) 14.9 (SEP 22) Hct 45.3 (SEP 23) 45.7 (SEP 22) Plt 159 (SEP 23) 169 (SEP 22) Na 139 (SEP 25) 139 (SEP 24) 139 (SEP 23) 143 (SEP 22) K 3.6 (SEP 25) 4.0 (SEP 24) 4.4 (SEP 23) 4.3 (SEP 22) CO2 28 (SEP 25) 24 (SEP 24) 25 (SEP 23) 24 (SEP 22) Cl 106 (SEP 25) 107 (SEP 24) H 109 (SEP 23) H 110 (SEP 22) Cr 1.1 (SEP 25) 1.1 (SEP 24) 0.9 (SEP 23) 1.1 (SEP 22) BUN H 42 (SEP 25) H 38 (SEP 24) H 25 (SEP 23) H 28 (SEP 22) Glucose Random H 118 (SEP 25) H 165 (SEP 24) H 179 (SEP 23) H 125 (SEP 22) Mg 1.9 (SEP 25) 1.8 (SEP 24) 1.8 (SEP 23) 1.8 (SEP 22) Phos 3.3 (SEP 23) Ca 8.7 (SEP 25) 9.5 (SEP 24) 9.1 (SEP 23) 9.5 (SEP 22) INR 1.1 (SEP 22) PTT 29.2 (SEP 22) Troponin 0.01 (SEP 23) 0.02 (SEP 22) 0.02 (SEP 22) . Radiology/Imaging: X-Ray: COMPLETED RADIOLOGY IMAGING STUDIES: No Imaging Results in the last 36 hours. [Electronically Signed on 09/25/2022 12:49 PM OUTBOUND SALES CONSULTANT] Susan Montiel MD * Jeremie Mujica M.D.: PERFORM, SIGN, VERIFY Event Display: Progress Note-Physician Authored Date: Patient: BAM SMALL Age: 86 years Sex: Male : 1935 Associated Diagnoses: None Author: Jeremie Mujica M.D. Subjective Subjective Information: The patient is up in the recliner resting without shortness of breath. He is afebrile. Pulse 71 and irregular. Blood pressure 111/71. His neck is supple. Lungs are clear. His heart is regular. Tones are somewhat distant. Extremities do not have significant edema. 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 So far, he is tolerating metoprolol we will increase the dose. He is on a moderate dose of Entresto which we will continue. We will continue to monitor renal function. Assuming he tolerates the higher dose of metoprolol he may be ready to leave the hospital tomorrow.. Patient Exam Vitals and Weights: Vitals Temp BP Pulse RR SpO2 FIO2 Date Wt(kg) Wt(lb) 09/25 07:29 36.3 111/71 71 18 97 RA 09/25 94.8 209 09/25 06:34 36.3 128/54 81 18 94 09/24 94.0 207 09/24 20:48 ---- 123/62 63 -- --- 09/22 95.5 210 09/24 20:47 36.4 123/62 63 18 94 09/22 96.2 212 09/24 15:09 36.1 139/95 77 22 93 RA 24 Hr Tmax: 36.4 at 09/24 20:47 36 Hr Tmax: 36.6 at 09/24 05:21 Vital Signs are the last 5 in the past 48 hours. Weights display the last 5 within 7 days. Initial Wt: 09/22 96.2 kg 212 lb . Intake and Output: I+O from Chart Intake Output Balance 09/25/2022 7a-3p 0 0 0 As of 10:27 3p-11p 0 0 0 11p-7a 0 0 0 Totals 0 0 0 09/24/2022 7a-3p 250 0 250 3p-11p 200 550 -350 11p-7a 400 1000 -600 Totals 850 1550 -700 09/23/2022 7a-3p 120 125 -5 3p-11p 300 0 300 11p-7a 400 0 400 Totals 820 125 695 . Recent Results Lab Results: Labs (Last four charted values) WBC 6.8 (SEP 23) 7.0 (SEP 22) Hgb 14.6 (SEP 23) 14.9 (SEP 22) Hct 45.3 (SEP 23) 45.7 (SEP 22) Plt 159 (SEP 23) 169 (SEP 22) Na 139 (SEP 25) 139 (SEP 24) 139 (SEP 23) 143 (SEP 22) K 3.6 (SEP 25) 4.0 (SEP 24) 4.4 (SEP 23) 4.3 (SEP 22) CO2 28 (SEP 25) 24 (SEP 24) 25 (SEP 23) 24 (SEP 22) Cl 106 (SEP 25) 107 (SEP 24) H 109 (SEP 23) H 110 (SEP 22) Cr 1.1 (SEP 25) 1.1 (SEP 24) 0.9 (SEP 23) 1.1 (SEP 22) BUN H 42 (SEP 25) H 38 (SEP 24) H 25 (SEP 20) H 28 (SEP 22) Glucose Random H 118 (SEP 25) H 165 (SEP 24) H 179 (SEP 23) H 125 (SEP 22) Mg 1.9 (SEP 25) 1.8 (SEP 24) 1.8 (SEP 23) 1.8 (SEP 22) Phos 3.3 (SEP 23) Ca 8.7 (SEP 25) 9.5 (SEP 24) 9.1 (SEP 23) 9.5 (SEP 22) INR 1.1 (SEP 22) PTT 29.2 (SEP 22) Troponin 0.01 (SEP 23) 0.02 (SEP 22) 0.02 (SEP 22) . Miscellaneous Diet: Diet - Modified -- 09/22/2022 2310, No Added Salt, Heart Healthy . [Electronically Signed on 09/25/2022 10:31 AM OUTBOUND SALES CONSULTANT] Jeremie Mujica M.D. * Marisol Dye: SIGN, MODIFY, VERIFY, PERFORM, SIGN Event Display: Progress Note-Physician Authored Date: Patient: BAM SMALL Age: 86 years Sex: Male : 1935 Associated Diagnoses: None Author: Marisol Dye Notes HF Note: Bam Small is a delightful 86 y/o male with a PMH of CABG, COPD, lung CA, HTN, and BPH who was admitted 09/22 secondary to dyspnea. Pt denies h/o HF. CXR on admission showed cardiomegaly. proBNP on admission was 7350. Pt has been treated with Solumedrol started 09/22, transitioned to Prednisone today for COPD exacerbation and Lasix 40 mg IV daily started 09/23. Echo done 09/24 showed EF 25%, diastolic dysfunction, cannot determine grade, severe LAE, mod RVE/TR, mild/mod MR, and mild ANDREI/PHTN. HF education done including explaining HF, daily weights and reporting a weight gain of 3 or more lbs/day or 5 or more lbs/wk and HF s/s to Dr. Mujica, taking medications as directed, and following a1.5 to 2 gram Na diet. Pt encouraged not to add salt to his food, salty foods to avoid/limit reviewed, and label reading emphasized. Literature provided. All questions answered. Daily weights ordered. Pt states he saw Dr. Haywood this morning and he plans on treating medically with possible deviceplacement in 4 months. D/W Dr. Mujica and he would like pt d/cd on Life Vest, will place order. [Electronically Signed on 09/25/2022 10:19 AM OUTBOUND SALES CONSULTANT] DANDRE Barnett * Marisol Dye PA: PERFORM Event Display: Progress Note-Physician Authored Date: [id number] Life Vest education done, literature provided, all questions answered. Pt agreeable to this since it's what Dr. Mujica wants. Updated Darlene from [facility] and RNCM. Dr. Mujica maximizing medications today with possible d/c in am, pt updated. [Electronically Signed on 09/25/2022 10:39 AM OUTBOUND SALES CONSULTANT] DANDRE Barnett * Binh Jiang M.D.: VERIFY, PERFORM, SIGN Event Display: Progress Note-Physician Authored Date: [id number] Patient: BAM SMALL Age: 86 years Sex: Male : 1935 Associated Diagnoses: None Author: Binh Jiang M.D. Subjective Patient Concerns: Follow-up on shortness of breath, chest heaviness. Subjective Information: Patient was seen and examined. He. Followed the same when compared to yesterday. He reports continued shortness of breath on exertion. Denied any chest pain. No nausea or vomiting. Family was at bedside. Patient apparently had problems with urinary retention required straight cath at home. Spoke to Dr. Rey. Patient had a very low EF on echo which is a new finding.. Patient Exam Vitals and Weights: Vitals Temp BP Pulse RR SpO2 FIO2 Date Wt(kg) Wt(lb) 09/24 15:09 36.1 139/95 77 22 93 RA 09/24 94.0 207 09/24 08:02 36.0 136/81 87 18 96 RA 09/22 95.5 210 09/24 06:02 36.4 114/71 75 18 94 RA 09/22 96.2 212 09/24 05:21 36.6 124/86 84 18 94 RA 09/23 20:19 36.7 119/53 75 18 93 RA 24 Hr Tmax: 36.7 at 09/23 20:19 36 Hr Tmax: 36.7 at 09/23 20:19 Vital Signs are the last 5 in the past 48 hours. Weights display the last 5 within 7 days. Initial Wt: 09/22 96.2 kg 212 lb . General: Alert and oriented. HENT: Normocephalic. Neck: Supple, Non-tender. Cardiovascular: Normal rate, Regular rhythm. Pulmonary: Bilateral decreased breath sounds heard. Occasional Rales present. GI: Soft, Non-tender, Normal bowel sounds. Extremities: Pedal edema: 1+ bilateral present. Neuro: Alert, No focal defects. Recent Results Lab Results: Labs (Last four charted values) WBC 6.8 (SEP 23) 7.0 (SEP 22) Hgb 14.6 (SEP 23) 14.9 (SEP 22) Hct 45.3 (SEP 23) 45.7 (SEP 22) Plt 159 (SEP 23) 169 (SEP 22) Na 139 (SEP 24) 139 (SEP 23) 143 (SEP 22) K 4.0 (SEP 24) 4.4 (SEP 23) 4.3 (SEP 22) CO2 24 (SEP 24) 25 (SEP 23) 24 (SEP 22) Cl 107 (SEP 24) H 109 (SEP 23) H 110 (SEP 22) Cr 1.1 (SEP 24) 0.9 (SEP 23) 1.1 (SEP 22) BUN H 38 (SEP 24) H 25 (SEP 23) H 28 (SEP 22) Glucose Random H 165 (SEP 24) H 179 (SEP 23) H 125 (SEP 22) Mg 1.8 (SEP 24) 1.8 (SEP 23) 1.8 (SEP 22) Phos 3.3 (SEP 23) Ca 9.5 (SEP 24) 9.1 (SEP 23) 9.5 (SEP 22) INR 1.1 (SEP 22) PTT 29.2 (SEP 22) Troponin 0.01 (SEP 23) 0.02 (SEP 22) 0.02 (SEP 22) . Radiology/Imaging: COMPLETED RADIOLOGY IMAGING STUDIES: CT ANGIO PE PROTOCOL [Auth (Verified)] (09/23 0544): FINAL IMPRESSION:1. No CT evidence of pulmonary embolus.2. Increased soft tissue density in the medial right upper lobe atthe site of prior radiation therapy which could be seen in the settingof tumor recurrence.3. Small bilateral pleural effusions with bibasilar and lingularatelectasis, new compared to prior study.4. Cardiac enlargement with reflux of contrast into the hepaticveins, findings which could be seen with heart failure.. . Impression and Plan Impression: Acute on chronic heart failure with reduced ejection fraction. -Patient had elevated NT proBNP as well as CT of the chest showing findings of pleural effusion. -Continue diuresis with the IV Lasix and monitor volume status closely. -Echocardiogram results reviewed which showed ejection fraction of 25%. Patient also had mild to moderate mitral regurgitation and moderate tricuspid regurgitation. He had elevated RSVP. -Cardiology was consulted and appreciate input from Dr. Mujica -Started on metoprolol, Entresto Chest pain, CAD: History of CABG -MO was ruled out. Monitor on the rehabilitation technician. Continue on aspirin, statin, beta-ric. Possible atrial fibrillation: -There was report of atrial fibrillation. Currently in normal sinus rhythm. -Continue metoprolol. On aspirin. Presumed COPD exacerbation: -Continue on bronchodilators. Multiplex PCR is negative. -Transition to oral prednisone with tapering doses. -Antibiotics discontinued as procalcitonin normal -Continue on Breo Ellipta. Appreciate pulmonary input. History of lung cancer: -S/p radiation treatment. Hyperglycemia: -As expected with the steroids. Accu-Cheks and sliding scale insulin will be continued BPH with urinary retention: -Segundo catheter ordered with ongoing diuresis. Continue on Flomax. Hyperlipidemia: -Continue on statin. Tolerating it well. Generalized weakness: -PT, OT evaluation will be ordered. DVT prophylaxis: SCD/heparin. CODE STATUS: Full code Spoke to patient and son at bedside. Updated him about plan of care.. Miscellaneous Diet: Diet - Modified -- 09/22/2022 2310, No Added Salt, Heart Healthy . Prophylaxis: VTE Prophylaxis: Last Heparin Dose : heparin 09/24/2022 13:25 [employer]OUND SALES CONSULTANT heparin 5,000 unit(s) unit(s) 09/24/2022 05:08 OUTBOUND SALES CONSULTANT heparin 5,000 unit(s) unit(s) 09/23/2022 20:21 OUTBOUND SALES CONSULTANT heparin 5,000 unit(s) unit(s) . [Electronically Signed on 09/24/2022 06:07 PM OUTBOUND SALES CONSULTANT] Binh Jiang M.D. * Jeremie Mujica M.D.: PERFORM, SIGN, VERIFY Event Display: Progress Note-Physician Authored Date: Patient: BAM SMALL Age: 86 years Sex: Male : 1935 Associated Diagnoses: None Author: Jeremie Mujica M.D. Subjective Subjective Information: The patient is currently resting in bed lying nearly flat without excess dyspnea. He just finished using one of his inhalers and his lungs are essentially clear. He is afebrile. Pulse 87, regular. Blood pressure 136/81. His neck is supple. Lungs have decreased breath sounds. His heart is irregular. I do not appreciatea gallop today. Extremities do not have significant edema. Echocardiogram was done this morning. Full report is pending but I did review the images and the ejection fraction is less than 20%. This is an unexpected finding. Impression: 1. Atrial fibrillation 2. Severely depressed left ventricular ejection fraction 3. Coronary disease with previous bypass without evidence for active ischemia Discussion: We will begin treatment for his reduced ejection fraction. We will ask electrophysiology to see as he will likely be a defibrillator candidate.. Patient Exam Vitals and Weights: Vitals Temp BP Pulse RR SpO2 FIO2 Date Wt(kg) Wt(lb) 09/24 08:02 36.0 136/81 87 18 96 RA 09/24 94.0 207 09/24 06:02 36.4 114/71 75 18 94 RA 09/22 95.5 210 09/24 05:21 36.6 124/86 84 18 94 RA 09/22 96.2 212 09/23 20:19 36.7 119/53 75 18 93 RA 09/23 20:04 ---- ----- 72 18 --- --- 24 Hr Tmax: 36.7 at 09/23 20: 36 Hr Tmax: 36.8 at 09/23 04:00 Vital Signs are the last 5 in the past 48 hours. Weights display the last 5 within 7 days. Initial Wt: 09/22 96.2 kg 212 lb . Intake and Output: I+O from Chart Intake Output Balance 09/24/2022 7a-3p 250 0 250 As of 13:05 3p-11p 0 0 0 11p-7a 0 0 0 Totals 250 0 250 09/23/2022 7a-3p 120 125 -5 3p-11p 300 0 300 11p-7a 400 0 400 Totals 820 125 695 09/22/2022 7a-3p 0 0 0 3p-11p 201.25 0 201.25 11p-7a 63.75 200 -136.25 Totals 265 200 65 . Recent Results Lab Results: Labs (Last four charted values) WBC 6.8 (SEP 23) 7.0 (SEP 22) Hgb 14.6 (SEP 23) 14.9 (SEP 22) Hct 45.3 (SEP 23) 45.7 (SEP 22) Plt 159 (SEP 23) 169 (SEP 22) Na 139 (SEP 24) 139 (SEP 23) 143 (SEP 22) K 4.0 (SEP 24) 4.4 (SEP 23) 4.3 (SEP 22) CO2 24 (SEP 24) 25 (SEP 23) 24 (SEP 22) Cl 107 (SEP 24) H 109 (SEP 23) H 110 (SEP 22) Cr 1.1 (SEP 24) 0.9 (SEP 23) 1.1 (SEP 22) BUN H 38 (SEP 24) H 25 (SEP 23) H 28 (SEP 22) Glucose Random H 165 (SEP 24) H 179 (SEP 23) H 125 (SEP 22) Mg 1.8 (SEP 24) 1.8 (SEP 23) 1.8 (SEP 22) Phos 3.3 (SEP 23) Ca 9.5 (SEP 24) 9.1 (SEP 23) 9.5 (SEP 22) INR 1.1 (SEP 22) PTT 29.2 (SEP 22) Troponin 0.01 (SEP 23) 0.02 (SEP 22) 0.02 (SEP 22) . Miscellaneous Diet: Diet - Modified -- 09/22/2022 2310, No Added Salt, Heart Healthy . [Electronically Signed on 09/24/2022 01:07 PM OUTBOUND SALES CONSULTANT] Jeremie Mujica M.D. * Susan Montiel MD: MODIFY, SIGN, VERIFY, PERFORM Event Display: Progress Note-Physician Authored Date: Patient: BAM SMALL Age: 86 years Sex: Male : 1935 Associated Diagnoses: None Author: Susan Montiel MD Impression and Plan Impression: Shortness of breath Acute on chronic heart failure Possible COPD exacerbation History of lung cancer status post radiation with some enlargement and nodule on CT Coronary artery disease. Plan: BNP elevated with small pleural effusions on CT. Suspect etiology of shortness of breath is in part heart failure related echocardiogram pending. Decrease steroids to oral 40 mg taper by 10 mg every 3 days until off. Continue bronchodilator treatment. continue diuretics. Subjective Patient Concerns: no issues overnight. Subjective Information Patient Exam Vitals and Weights: Vitals Temp BP Pulse RR SpO2 FIO2 Date Wt(kg) Wt(lb) 09/24 08:02 36.0 136/81 87 18 96 RA 09/24 94.0 207 09/24 06:02 36.4 114/71 75 18 94 RA 09/22 95.5 210 09/24 05:21 36.6 124/86 84 18 94 RA 09/22 96.2 212 09/23 20:19 36.7 119/53 75 18 93 RA 09/23 20:04 ---- ----- 72 18 --- --- 24 Hr Tmax: 36.7 at 09/23 20:19 36 Hr Tmax: 36.8 at 09/23 04:00 Vital Signs are the last 5 in the past 48 hours. Weights display the last 5 within 7 days. Initial Wt: 09/22 96.2 kg 212 lb . General: Alert and oriented, No acute distress. HENT: Normocephalic, Oral mucosa is moist. Neck: Supple, Non-tender. Cardiovascular: Normal rate, Regular rhythm, No murmur, No edema. Pulmonary: Lungs are clear to auscultation, Respirations are non-labored. GI: Soft, Non-tender. Skin: Warm. Nails: No cyanosis. Recent Results Lab Results: Labs (Last four charted values) WBC 6.8 (SEP 23) 7.0 (SEP 22) Hgb 14.6 (SEP 23) 14.9 (SEP 22) Hct 45.3 (SEP 23) 45.7 (SEP 22) Plt 159 (SEP 23) 169 (SEP 22) Na 139 (SEP 24) 139 (SEP 23) 143 (SEP 22) K 4.0 (SEP 24) 4.4 (SEP 23) 4.3 (SEP 22) CO2 24 (SEP 24) 25 (SEP 23) 24 (SEP 22) Cl 107 (SEP 24) H 109 (SEP 23) H 110 (SEP 22) Cr 1.1 (SEP 24) 0.9 (SEP 23) 1.1 (SEP 22) BUN H 38 (SEP 24) H 25 (SEP 23) H 28 (SEP 22) Glucose Random H 165 (SEP 24) H 179 (SEP 23) H 125 (SEP 22) Mg 1.8 (SEP 24) 1.8 (SEP 23) 1.8 (SEP 22) Phos 3.3 (SEP 23) Ca 9.5 (SEP 24) 9.1 (SEP 23) 9.5 (SEP 22) INR 1.1 (SEP 22) PTT 29.2 (SEP 22) Troponin 0.01 (SEP 23) 0.02 (SEP 22) 0.02 (SEP 22) . Radiology/Imaging: X-Ray: COMPLETED RADIOLOGY IMAGING STUDIES: CT ANGIO PE PROTOCOL [Auth (Verified)] (09/23 1054): FINAL IMPRESSION:1. No CT evidence of pulmonary embolus.2. Increased soft tissue density in the medial right upper lobe atthe site of prior radiation therapy which could be seen in the settingof tumor recurrence.3. Small bilateral pleural effusions with bibasilar and lingularatelectasis, new compared to prior study.4. Cardiac enlargement with reflux of contrast into the hepaticveins, findings which could be seen with heart failure.. . [Electronically Signed on 09/24/2022 10:42 AM OUTBOUND SALES CONSULTANT] Susan Montiel MD * Binh Jiang M.D.: PERFORM, SIGN, VERIFY Event Display: Progress Note-Physician Authored Date: Patient: BAM SMALL Age: 86 years Sex: Male : 1935 Associated Diagnoses: None Author: Binh Jiang M.D. Subjective Patient Concerns: Follow-up on shortness of breath, chest heaviness. Subjective Information: Patient was seen and examined. He apparently started having shortness of breath, chest heaviness for last 2 days. This was progressively getting worse. He has cough and occasional wheezing at home. Denied any fever or chills. Patient came to hospital with above symptoms. He is admitted for further evaluation and treatment. At the time of my exam, patient appears to be weak but in no distress. Denied any abdominal pain, nausea or vomiting. He reports history of constipation.. Patient Exam Vitals and Weights: Vitals Temp BP Pulse RR SpO2 FIO2 Date Wt(kg) Wt(lb) 09/23 11:54 36.1 128/86 84 22 93 RA 09/22 95.5 210 09/23 11:07 ---- ----- 101 22 --- 09/22 96.2 212 09/23 10:00 ---- ----- 84 24 --- 09/23 09:00 ---- ----- 89 24 95 RA 09/23 08:00 ---- 127/82 88 25 92 RA 24 Hr Tmax: 36.8 at 09/23 04:00 36 Hr Tmax: 36.8 at 09/23 04:00 Vital Signs are the last 5 in the past 48 hours. Weights display the last 5 within 7 days. Initial Wt: 09/22 96.2 kg 212 lb . General: Alert and oriented. HENT: Normocephalic. Neck: Supple, Non-tender. Cardiovascular: Normal rate, Regular rhythm. Pulmonary: Bilateral decreased breath sounds heard. Occasional Rales present. GI: Soft, Non-tender, Normal bowel sounds. Extremities: Pedal edema: 1+ bilateral present. Neuro: Alert, No focal defects. Recent Results Lab Results: Labs (Last four charted values) WBC 6.8 (SEP 23) 7.0 (SEP 22) Hgb 14.6 (SEP 23) 14.9 (SEP 22) Hct 45.3 (SEP 23) 45.7 (SEP 22) Plt 159 (SEP 23) 169 (SEP 22) Na 139 (SEP 23) 143 (SEP 22) K 4.4 (SEP 23) 4.3 (SEP 22) CO2 25 (SEP 23) 24 (SEP 22) Cl H 109 (SEP 23) H 110 (SEP 22) Cr 0.9 (SEP 23) 1.1 (SEP 22) BUN H 25 (SEP 23) H 28 (SEP 22) Glucose Random H 179 (SEP 23) H 125 (SEP 22) Mg 1.8 (SEP 23) 1.8 (SEP 22) Phos 3.3 (SEP 23) Ca 9.1 (SEP 23) 9.5 (SEP 22) INR 1.1 (SEP 22) PTT 29.2 (SEP 22) Troponin 0.01 (SEP 23) 0.02 (SEP 22) 0.02 (SEP 22) . Radiology/Imaging: COMPLETED RADIOLOGY IMAGING STUDIES: CT ANGIO PE PROTOCOL [Auth (Verified)] (09/23 1054): FINAL IMPRESSION:1. No CT evidence of pulmonary embolus.2. Increased soft tissue density in the medial right upper lobe atthe site of prior radiation therapy which could be seen in the settingof tumor recurrence.3. Small bilateral pleural effusions with bibasilar and lingularatelectasis, new compared to prior study.4. Cardiac enlargement with reflux of contrast into the hepaticveins, findings which could be seen with heart failure.. CHEST SINGLE VIEW [Auth (Verified)] (09/22 1934): FINAL IMPRESSION:1. Previously noted right upper and mid lung opacities are lessconspicuous on the current study.2. Cardiac silhouette enlargement.. . Impression and Plan Impression: Acute on chronic heart failure with preserved ejection fraction. -Patient had elevated NT proBNP as well as CT of the chest showing findings of pleural effusion. -Will diurese with the IV Lasix. Monitor volume status closely. -Check echocardiogram. -Cardiology was consulted and follow recommendations. Chest pain, CAD: History of CABG -MO was ruled out. Monitor on the rehabilitation technician. Continue on aspirin, statin. Will add low-dose beta-ric. Presumed COPD exacerbation: -Continue on bronchodilators. Multiplex PCR is negative. -Also on IV Solu-Medrol which will be weaned down as tolerated. -Patient is started on empiric antibiotics which will be de-escalated in next 24 hours if his condition remains stable. Procalcitonin is normal. -Continue on Breo Ellipta. Appreciate pulmonary input. Hyperglycemia: -As expected with the steroids. Accu-Cheks and sliding scale insulin ordered. BPH: -Symptoms are stable. Continue on Flomax. Hyperlipidemia: -Continue on statin. Tolerating it well. Generalized weakness: -PT, OT evaluation will be ordered. DVT prophylaxis: SCD/heparin. CODE STATUS: Full code. Miscellaneous Diet: Diet - Modified -- 09/22/2022 2310, No Added Salt, Heart Healthy . Prophylaxis: VTE Prophylaxis: Last Heparin Dose : heparin 09/23/2022 12:53 OUTBOUND SALES CONSULTANT heparin 5,000 unit(s) unit(s) . [Electronically Signed on 09/23/2022 01:47 PM OUTBOUND SALES CONSULTANT] Binh Jiang M.D. Clinical cardiac electrophysiology Consult note * Garland Haywood MD: PERFORM Event Display: Electrophysiology Consultation Authored Date: Patient Information Name:BAM SMALL Address: [address] [place] [phone] Sex:Male Date of :1935 Emergency Contact:BRANDY SMALL Location:[facility] Registration Date and Time:09/22/2022 17:42 OUTBOUND SALES CONSULTANT Primary Care Physician: Luis Fernando Vo M.D., Attending Physician: Binh Jiang M.D., Chief Complaint Afib COPD Exacerbation Reason for Consultation IC evaluation History of Present Illness Initial evaluation??September 25, 2022. ??Patient is a very pleasant 86-year-old gentleman that is followed by Dr. Mujica. ??Shortness of breath??secondary to COPD exacerbation. ??Also has a history of coronary artery disease status post CABG. Looking at the available notes it does seem that??afterhis catheterization in 2014 he was not seen in the clinic.?? EP was consulted for evaluation for ICD . Functional status:??Able to perform activities of daily life?? Social history: Does not smoke Heart failure regimen: none at presentation Oral AC: none Previous Cardiac studies: Transthoracic??echocardiogram??September 24, 2022: Ejection fraction 25%??severely dilated?? left atrium, mild to moderate MR. EKG September 22: SR with PAC RBBB. Review of Systems 10 system review negative besides what is stated in HPI Vitals and Measurements Vital Signs Height: 178 cm Height: 178 cm Height Source: Stated Weight: 93.7 kg Weight: 94.8 kg Weight: 94 kg Weight Source: Actual Body Surface Area: 2.173 m2 Body Mass Index: 30.14 kg/m2 Body Mass Index: 30.36 kg/m2 Temperature Temporal Artery: 36 DegC Temperature Temporal Artery: 36.6 DegC Temperature Temporal Artery: 36.2 DegC Systolic Blood Pressure: 116 mm Hg Systolic Blood Pressure: 118 mm Hg Systolic Blood Pressure: 123 mm Hg Diastolic Blood Pressure: 61 mm Hg Diastolic Blood Pressure:??50 mm Hg??Low Diastolic Blood Pressure: 67 mm Hg Peripheral Pulse Rate: 62 bpm Peripheral Pulse Rate: 63 bpm Peripheral Pulse Rate: 63 bpm Heart Rate Monitored: 62 bpm Heart Rate Monitored: 85 bpm Heart Rate Monitored: 67 bpm Respiratory Rate: 16 br/min Respiratory Rate: 16 br/min Respiratory Rate: 16 br/min SpO2: 96 % SpO2: 96 % Oxygen Saturation: 94 % Oxygen Saturation: 94 % Oxygen Saturation: 95 % Oxygen Flow Rate: 0 L/min Physical Exam General: Pleasant, Appropriate, not confused, not in extremis Eyes: No scleral icterus, gaze appropriate, ENMT: , no notable jugular venous distension, , otherwise normocephalic, atraumatic; Respiratory: Breathing unlabored, speech unlabored, chest generally clear to auscultation, no cough, no wheeze, no rales CV: Regular rate, regular rhythm, normal S1 and S2, no rub, no notable murmur GI: Abdomen is soft, nontender, nonrigid, with normoactive, normal pitch bowel sounds, no bruit, : No costovertebral angle tenderness M-S: No cervical, thoracic, lumbar, or sacral spine tenderness Skin: No clubbing, cyanosis.. Skin otherwise warm and dry Extremities: no lower extremities edema Gait: moves all extremities without issues Psych: appropriate mood and affect Assessment/Plan 1.??Encounter for other specified special examinations Atrial fibrillation COPD exacerbation Shortness of breath HfrEF: new diagnosis Patient will be started on GDMT Will need an echo in 3 months from now Would consider ischemic evaluation given his??new diagnosis of HFrEF ??but will defer this of course to Dr. Mujica We discussed about ICD the benefits and risks associated with the procedure. We discussed that in octogenarians the data supporting mortality benefit are not so strong . ?? Problem List/Past Medical History Ongoing Acid reflux disease Acute exacerbation of chronic obstructive airways disease J44.1 ASHD (arteriosclerotic heart disease) I25.10 Asthma Asthma J45.909 Bulging lumbar disc Cataract COPD (chronic obstructive pulmonary disease) COPD (chronic obstructive pulmonary disease) J44.9 Coronary arteriosclerosis in [place] artery Elevated cholesterol E78.00 Gout H/O: lung cancer High blood pressure High cholesterol HTN (hypertension) I10 Hyperplasia of prostate Kidney stone Lesion of lung Nocturia Urinary incontinence PatientStated No qualifying data Historical Cancer of prostate Chest pain Deep vein thrombosis (DVT) Procedure/Surgical History ???CABG x 5 - Coronary artery bypass grafts x 5???CE - Cataract extraction???Hip arthroplasty???lumbar back surg 04/2010???Prostate implantation Medications Inpatient albuterol 90 mcg/inh inhaler, 2 puff(s), Inhalation, [id number], PRN albuterol 90 mcg/inh inhaler, 2 puff(s), Inhalation, [id number] while awake allopurinol, 100 mg= 1 tablet(s), Oral, daily aspirin, 81 mg= 1 tablet(s), Oral, daily Back Up Bag NS 0.9% for IVPB 250 mL, 250 mL, IV Cont Back Up Bag NS 0.9% for IVPB 250 mL, 250 mL, IV Cont Breo Ellipta 100 mcg-25 mcg/inh inhalation powder, 1 puff(s), Inhalation, daily Cepacol oral lozenge, 1 lozenge, Oral, as needed, PRN Colace, 100 mg= 1 capsule(s), Oral, bid, PRN Dextrose 50% 25 gm/50 mL Syringe, 12.5 gm= 25 mL, IV SLOW Push, as needed, PRN Dextrose 50% 25 gm/50 mL Syringe, 25 gm= 50 mL, IV SLOW Push, as needed, PRN DuoNeb 2.5 mg-0.5 mg/3 mL, 3 mL, Nebulized, e5wocsj, PRN Entresto 49 mg-51 mg oral tablet, 1 tablet(s), Oral, bid Flomax, 0.4 mg= 1 capsule(s), Oral, pm after dinner glucagon, 1 mg= 1 mL, SubQ, as needed, PRN Heparin (SubQ Dosing), 5000 unit(s)= 1 mL, SubQ, h4nswar Insulin Lispro, 0-5 unit(s), SubQ, tid with meals Lasix, 40 mg= 1 tablet(s), Oral, daily melatonin, 3 mg= 1 tablet(s), Oral, qhs, PRN Metoprolol Tartrate, 50 mg= 1 tablet(s), Oral, bid MiraLax oral powder for reconstitution, 1 packet(s), Oral, daily, PRN MiraLax oral powder for reconstitution, 1 packet(s), Oral, daily Narcan, 0.2 mg= 0.5 mL, IV SLOW Push, q2min, PRN ondansetron, 4 mg= 2 mL, IV SLOW Push, a4xuotq, PRN predniSONE, 40 mg= 2 tablet(s), Oral, daily with breakfast predniSONE, 30 mg= 3 tablet(s), Oral, daily with breakfast predniSONE, 20 mg= 1 tablet(s), Oral, daily with breakfast predniSONE, 10 mg= 1 tablet(s), Oral, daily with breakfast rosuvastatin, 20 mg= 1 tablet(s), Oral, qhs Tylenol, 650 mg= 2 tablet(s), Oral, e9hiiqu, PRN Home Advair Diskus 250 mcg-50 mcg inhalation powder, 1 puff(s), Inhalation, bid albuterol 90 mcg/inh inhaler, 2 puff(s), Inhalation, p4kaxkv, PRN, 3 refills Aleve Caplet 220 mg oral tablet, 1 tablet(s), Oral, h3psdbs, PRN allopurinol 100 mg oral tablet, 1 tablet(s), Oral, daily aspirin 81 mg oral enteric coated tablet, 81 mg= 1 tablet(s), Oral, daily cephalexin 250 mg oral capsule, 250 mg= 1 capsule(s), qhs fexofenadine 180 mg oral tablet, 180 mg= 1 tablet(s), Oral, daily Flomax 0.4 mg oral capsule, 0.4 mg= 1 capsule(s), Oral, pm after dinner hydroCHLOROthiazide 25 mg oral tablet, 1 tablet(s), Oral, qam Multivitamin oral tablet, 1 tablet(s), Oral, daily omeprazole 20 mg oral delayed release capsule, 1 capsule(s), Oral, daily prochlorperazine 10 mg oral tablet, 10 mg= 1 tablet(s), Oral, i1fnkrn, PRN, 1 refills rosuvastatin 20 mg oral tablet, 1 tablet(s), Oral, HS Tylenol 8 HR Arthritis Pain 650 mg oral tablet, extended release, 650 mg= 1 tablet(s), Oral, k8umagy, PRN Allergies NKA Social History Smoking Status - 02/25/2015 Former smoker Alcohol Current every day alcohol user, Liquor, Daily, 1 drink, 01/24/2022 Substance Abuse Never drug user, 01/24/2022 Tobacco Former smoker, Smokeless Tobacco use: Never. N/A Cessation Counseling. Cigarettes, Stopped age 55 Years., 07/25/2022 Family History ?Mother ?Positive ?Breast cancer ?Sister ?Positive ?Arthritis ?Mother ?Positive ?Stroke ? Immunizations Vaccine Date [id number]-7 (COVID-19) mRNA BNT-162b2 vax 08/03/2022 Recorded influenza virus vaccine, inactivated 08/03/2022 Recorded influenza virus vaccine, inactivated 08/03/2022 Recorded influenza virus vaccine, inactivated 08/29/2018 Recorded influenza virus vaccine, H1N1, inactivat 07/15/2017 Recorded pneumococcal 13-valent vaccine 10/14/2014 Recorded Voice to Text Technology Disclaimer This note may contain text inserted via Dragon or other voice to text assistive technology and salon shampoo assistant, variances may occur. US Heart * Event Display: Echocardiogram Report * Event Display: Echocardiogram Complete Study * Event Display: Echocardiogram Complete Study Authored Date: [id number] [facility] CARDIOLOGY [facility] [address] [place] [address] Transthoracic Echocardiogram Patient Name: BAM SMALL D : 1935 Study Date: 09/24/2022 12:47:06 PM Gender: M Stylist Assistant: MZLocation: [id number] Ref.Provider: BINH JIANG Height(Cm): 178 BSA: 2.17 Weight(Kg): 95.5 BP: 136/81Quality: Good Order Provider: BINH JIANG PROCEDURES: Echocardiographic Report: Transthoracic echocardiogram with complete 2D, M-Mode, color and Doppler examination. INDICATIONS: CAD I25.10. Measurements: 2D/M Mode Doppler Measurement Value Normal Range Measurement Value Normal Range LVIDd 2D 5.8 [ 3.9 - 5.7 ] cm LVOT [place] 65.7 [ 80.0 - 150.0 ] cm/s LVIDs 2D 5.1 [ 2.0 - 3.8 ] cm LVOT VTI 10.3 [ 20.0 - 30.0 ] cm IVSd Mid 2D 0.9 [ 0.6 - 1.0 ] cm LVOT Diam 2D 2.0 [ 1.4 - 2.6 ] cm LVPWd 2D 0.9 [ 0.6 - 1.0 ] cm LVOT SVI 14.52 [ 35.00 - 70.00 ] mL/m2 LV Mass 203 g AV Peak [place] 88.9 cm/s LV Mass Index 94 [ 49 - 115 ] g/m2 AV Peak PG 3.2 mmHg RWT 0.31 AV Mean PG 1.5 mmHg EDV 2D 201 [ 60 - 145 ] cm3 AV VTI 14.1 cm LV Diastolic Volume Index 93 [ 34 - 74 ] Aortic Valve Area (VTI) 2.29 cm2 ESV 2D 151 [ 20 - 60 ] cm3 AV DV Index (Velocity) 0.74 [ >= 0.50 ] EF Mod BP 25 [ 50 - 74 ] % AV DVTI Index (VTI) 0.73 [ >= 0.50 ] FS 2D 13 [ 25 - 47 ] % MV E [place] 93.6 [ 70.0 - 120.0 ] cm/s LA Volume Index 2D 56 [ 20 - 34 ] cc/m2 MV A [place] 26.8 cm/s RVDd 2D 5.1 cm MV E/A 3.5 TAPSE 1.4 [ 1.6 - 2.3 ] cm MV Decel Time 124.7 [ 180.0 - 240.0 ] msec RA Area 2D 22 [ 8 - 20 ] cm2 PV Peak [place] 101.0 [ 80.0 - 150.0 ] cm/s LVOT Diam 2D 2.0 [ 1.4 - 2.6 ] cm PV Peak PG 4.1 mmHg Sinus V 2D 2.9 cm TR Peak [place] 308.5 [ 150.0 - 270.0 ] cm/s Asc AoR 2D 3.3 [ 2.0 - 3.7 ] cm TR Peak PG 38.1 [ 20.0 - 32.0 ] mmHg Tricuspid S` 6.0 [ 10.0 - 25.0 ] cm/s Medial E` 4 cm/s Measurement Value Normal Range Measurement Value Normal Range 2D/M Mode Doppler - FINDINGS: Left Ventricle: Mildly dilated left ventricle. Severely depressed left ventricular systolic function. The left ventricular ejection fraction is measured by Bailey's biplane method at 25 %. Diastolic dysfunction present, cannot determine Diastolic Dysfunction Grade. Right Ventricle: Moderately dilated right ventricle. Mild right ventricular hypokinesis. Left Atrium: Severely dilated left atrium. Right Atrium: Mildly dilated right atrium. Atrial Septum: Normal atrial septum. Mitral Valve: Normal appearance of the mitral valve leaflets. Mild to moderate mitral regurgitation. Aortic Valve: No significant aortic stenosis or insufficiency. Trileaflet but assymetric aortic valve. Tricuspid Valve: Normal appearance of the tricuspid valve. There is moderate tricuspid regurgitation. Right ventricular systolic pressure is consistent with mild pulmonary hypertension. The estimated Peak RVSP is 47 mmHg. Pulmonic Valve: Normal pulmonic valve appearance and function with trace (physiologic) regurgitation. Pericardium: Normal pericardium with no significant pericardial effusion. Aorta: Normal aortic root. Normal ascending aorta size. Normal aortic arch. IVC: Normal inferior vena cava appearance. Pulmonary Artery: Normal pulmonary artery size. Rhythm: Indeterminate cardiac rhythm. Prior Comparison: No prior studies for comparison. CONCLUSIONS: 1. Mildly dilated left ventricle. Severely depressed left ventricular systolic function. The left ventricular ejection fraction is measured by Bailey's biplane method at 25 %. Diastolic dysfunction present, cannot determine Diastolic Dysfunction Grade. 2. Moderately dilated right ventricle. Mild right ventricular hypokinesis. 3. Severely dilated left atrium. 4. Mildly dilated right atrium. 5. Normal appearance of the mitral valve leaflets. Mild to moderate mitral regurgitation. 6. No significant aortic stenosis or insufficiency. Trileaflet but assymetric aortic valve. 7. Normal appearance of the tricuspid valve. There is moderate tricuspid regurgitation. Right ventricular systolic pressure is consistent with mild pulmonary hypertension. The estimated Peak RVSP is 47 mmHg. Electronically Signed By: Jeremie Mujica MD [facility] 2022-09-24 14:03:32 OUTBOUND SALES CONSULTANT CC: CC: .doppler Lower extremity vein - bilateral * Event Display: VENOUS BILAT LOWER EXTR DUPLEX * Event Display: VENOUS BILAT LOWER EXTR DUPLEX Authored Date: [facility] [address] [place] [address] Bilateral Lower Extremity Venous Report Patient Name: BAM SMALL D : 1935 (86y 10m) Study Date: 09/24/2022 11:04:10 AM Gender: M Tech: [facility] Location: [address] [place] [address] Ref.Provider: DARLENE KUO Height(Cm): BSA: Weight(Kg): Quality: Adequate Order Provider: DARLENE KUO Procedures: Vascular Report: The deep and superficial venous segments of the bilateral lower extremities were examined for compressibility, spontaneity, patency, phasicity and augmentation. Indications: Localized edema R60.0. Findings: Right Common Femoral Vein: The right common femoral vein is fully compressible. Doppler signals are within normal limits. Right Proximal Great Saphenous Vein: The proximal right great saphenous vein is fully compressible. Right Femoral Vein: The right femoral vein is fully compressible. Right Profunda Vein: The proximal profunda femoral vein is compressible with normal color filling. Right Popliteal Vein: The right popliteal vein is fully compressible. Doppler signals are within normal limits. Right Gastrocnemius Veins: The right gastrocnemius veins are fully compressible. Right Posterior Tibial Calf: The right posterior tibial veins are fully compressible. Normal color filling with distal augmentation. Right Peroneal Calf: The right peroneal veins are fully compressible. Normal color filling with distal augmentation. Left Common Femoral Vein: The left common femoral vein is fully compressible. Doppler signals are within normal limits. Left Great Saphenous Vein: The proximal left great saphenous vein is fully compressible. Left Femoral Vein: The left femoral vein is fully compressible. Left Profunda Vein: The proximal profunda femoral vein is compressible with normal color filling. Left Popliteal Vein: The left popliteal vein is fully compressible. Doppler signals are within normal limits. Left Gastrocnemius Veins: The left gastrocnemius veins are fully compressible. Left Posterior Tibial Calf: The left posterior tibial veins are fully compressible. Normal color filling with distal augmentation. Left Peroneal Calf: The left peroneal veins are fully compressible. Normal color filling with distal augmentation. Performing Technologist: This exam was performed by Mine Kelely RVT RN. Conclusions: 1. No evidence of deep venous thrombosis in either lower extremity. Electronically Signed By: Kameron Nur MD 2022-09-24 12:01:21 OUTBOUND SALES CONSULTANT CC: CC: Consult note * Art Thomas MD: PERFORM, SIGN, VERIFY Event Display: Consultation Authored Date: [id number] Patient: BAM SMALL Age: 86 years Sex: Male : 1935 Associated Diagnoses: None Author: Art Thomas MD Consultation Information Consultation Date: 09/23/2022. Reason for Consultation: Shortness of breath/cough. Assessment Impression 1. Shortness of breath/cough, possible pneumonia versus COPD exacerbation 2. Moderately severe COPD 3. Right upper lobe groundglass nodule, status post radiotherapy 4. Coronary artery disease 5. Hypertension 6. Hyperlipidemia. Recommendations Recommendations: 1. We will do CT of chest with contrast using PE protocol 2. Ensure that respiratory 22 Plex swab was performed 3. Solu-Medrol 20 mg every 8 hours 4. Nebulized bronchodilators 5. Antibiotics pending review of CT and procalcitonin. History of Present Illness Patient is an 86-year-old male with moderately severe COPD who is followed by my partner Dr. Susan Montiel. He has known coronary disease, has had bypass surgery and has had a right upper lobe groundglass nodule that upon enlargement was addressed by bronchoscopy without result. With a negative finding but with growth and suspicion, radiation therapy was completed to this nodule. The patient developed the onset of shortness of breath and cough productive of clear sputum about 2days prior to this admission. The day of admission he developed left-sided chest pressure, substernal and nonradiating but mild to moderate in severity. This lasted a few hours before resolving. He did not have chest pain per se. There was no pleurisy type pain no hemoptysis. The patient came to the emergency room because of the symptoms. He had had no accompanying fevers chills or exposures. In the ER he was wheezing on examination and treated with steroids and albuterol. His multiplex 22 panel was negative. I am asked to see him now in pulmonary consultation and to assist with management.. Histories Past Medical History: Medical Problems ASHD (arteriosclerotic heart disease) I25.10 Acid reflux disease Acute exacerbation of chronic obstructive airways disease J44.1 Asthma Asthma J45.909 Bulging lumbar disc COPD (chronic obstructive pulmonary disease) COPD (chronic obstructive pulmonary disease) J44.9 Cataract Coronary arteriosclerosis in [place] artery Elevated cholesterol E78.00 Gout HTN (hypertension) I10 High blood pressure High cholesterol Hyperplasia of prostate Kidney stone Lesion of lung Nocturia Urinary incontinence Procedure history: Hip arthroplasty ([id number]). Comments: 05/01/2010 05:41 CDT - Rose Mary Valdovinos RN left Prostate implantation ([id number]). lumbar back surg 04/2010. CABG x 5 - Coronary artery bypass grafts x 5 ([id number]). Comments: 10/14/2017 10:59 OUTBOUND SALES CONSULTANT - Olga Rosenbaum RN 2015 CE - Cataract extraction ([id number]). Current medications: Home Medications: acetaminophen: 650 mg, Oral albuterol: 2 puff(s), Inhalation, [id number], PRN (shortness of breath) albuterol: 2 puff(s), Inhalation, s5ifvvo, PRN (shortness of breath), Slow Breath inhale slowly anddeeply allopurinol: 1 tablet(s), Oral, daily, FOR GOUT PREVENTION. aspirin: 81 mg = 1 tablet(s), Oral, daily cephalexin: 250 mg = 1 capsule(s), qhs fexofenadine: 180 mg = 1 tablet(s), Oral, daily fluticasone-salmeterol: 1 puff(s), Inhalation, bid hydroCHLOROthiazide: 1 tablet(s), Oral, qam multivitamin: 1 tablet(s), Oral, daily naproxen: 1 tablet(s), Oral, h7epfxu, PRN (headache) omeprazole: 1 capsule(s), Oral, daily predniSONE: Taper from 40 mg q3day by 10 mg till off, Oral, daily prochlorperazine: 10 mg = 1 tablet(s), Oral, a1ayvmt, PRN (nausea) rosuvastatin: 1 tablet(s), Oral, HS tamsulosin: 0.4 mg = 1 capsule(s), Oral, pm after dinner Family History: Stroke Mother () Arthritis Sister Breast cancer Mother () Review of Systems Constitutional: Sweats, Weakness, Fatigue. Ear/Nose/Mouth/Throat: Negative. Respiratory: Shortness of breath, Cough, Sputum production. Cardiovascular: Negative. Gastrointestinal: Negative. Musculoskeletal: Negative. Integumentary: Negative. Neurologic: Negative. Psychiatric: Negative. Physical Examination Vitals Temp BP Pulse RR SpO2 FIO2 Date Wt(kg) Wt(lb) 09/23 07:00 36.2 ----- --- 25 95 --- 09/22 95.5 210 09/23 06:56 ---- ----- 90 20 96 --- 09/22 96.2 212 09/23 04:00 36.8 119/87 --- 23 94 RA 09/23 00:03 ---- ----- 98 18 --- RA 09/23 00:00 36.6 140/89 --- 30 95 RA 24 Hr Tmax: 36.8 at 09/23 04:00 36 Hr Tmax: 36.8 at 09/23 04:00 Vital Signs are the last 5 in the past 48 hours. Weights display the last 5 within 7 days. Initial Wt: 09/22 96.2 kg 212 lb General: Alert and oriented, No acute distress. Eye: Pupils are equal, round and reactive to light, Extraocular movements are intact, Normal conjunctiva. HENT: Normocephalic, Oral mucosa is moist, No pharyngeal erythema. Neck: Supple, Non-tender, No carotid bruit, No jugular venous distention, No lymphadenopathy, No thyromegaly. Cardiovascular: Normal rate, Regular rhythm, No murmur, No gallop, Good pulses equal in all extremities, Normal peripheral perfusion. Gastrointestinal: Soft, Non-tender, Non-distended, Normal bowel sounds, No organomegaly. Lymphatics: No lymphadenopathy neck, axilla, groin. Musculoskeletal Normal range of motion. Normal strength. No tenderness. No swelling. Integumentary: Warm, Dry. Genitourinary: No costovertebral angle tenderness. Cognition and Speech: Oriented, Speech clear and coherent, Functional cognition intact. Neurologic: Alert, Oriented, Normal sensory, Normal motor function, No focal deficits. Psychiatric: Cooperative, Appropriate mood & affect. Data Pertinant Lab Results: Summary Labs Labs (Last four charted values) WBC 6.8 (SEP 23) 7.0 (SEP 22) Hgb 14.6 (SEP 23) 14.9 (SEP 22) Hct 45.3 (SEP 23) 45.7 (SEP 22) Plt 159 (SEP 23) 169 (SEP 22) Na 139 (SEP 23) 143 (SEP 22) K 4.4 (SEP 23) 4.3 (SEP 22) CO2 25 (SEP 23) 24 (SEP 22) Cl H 109 (SEP 23) H 110 (SEP 22) Cr 0.9 (SEP 23) 1.1 (SEP 22) BUN H 25 (SEP 23) H 28 (SEP 22) Glucose Random H 179 (SEP 23) H 125 (SEP 22) Mg 1.8 (SEP 23) 1.8 (SEP 22) Phos 3.3 (SEP 23) Ca 9.1 (SEP 23) 9.5 (SEP 22) INR 1.1 (SEP 22) PTT 29.2 (SEP 22) Troponin 0.01 (SEP 23) 0.02 (SEP 22) 0.02 (SEP 22) , ABG Results Last AGB Result No ABG results within 24 hours. Radiology/ImaginH Rad Impressions COMPLETED RADIOLOGY IMAGING STUDIES: CHEST SINGLE VIEW [Auth (Verified)] (09/22 1934): FINAL IMPRESSION:1. Previously noted right upper and mid lung opacities are lessconspicuous on the current study.2. Cardiac silhouette enlargement.. . Ventilator Data: Ventilator information, latest result from past 4 hours No qualifying data available.. Medical Reasoning Medical Reasoning: We will proceed to a CT with PE protocol, continue steroids and antibiotics and do bedside spirometry and compared to prior studies. Dr. Montiel will resume care tomorrow.. [Electronically Signed on 09/23/2022 09:46 AM OUTBOUND SALES CONSULTANT] Art Thomas M.D. History and physical note * Darlene Kuo MD: SIGN, MODIFY, VERIFY, MODIFY, SIGN, MODIFY, PERFORM Event Display: History and Physical Authored Date: Patient: BAM SMALL Age: 86 years Sex: Male : 1935 Associated Diagnoses: None Author: Darlene Kuo MD Basic Information Admit information: Date of admission / Date of service: 09/22/2022 (seen and examined before 11:59pm). Source of history: Self. Referral source: Emergency department. History limitation: None. Chief Complaint 09/22/2022 17:43 OUTBOUND SALES CONSULTANT SOB for 2 days. Productive cough with clear to yellow sputum. 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 Patient states that shortness of breath and productive cough with clear sputum began 2 days prior to admission. Then on day of admission when laying in bed had onset of chest pressure, mid chest/substernal, nonradiating, notrelieved or exacerbated by anything, mild to moderate severity, constant for a couple hours and then resolved. Patient denies chest pain. Patient denies change in symptoms with exertion. Patient denies orthopnea. Denies fevers, chills, and sick contacts. Patient states that he has lower extremity swelling that has been present for several months and is unchanged. Denies other ROS. In the ED, noted to have wheezing on exam and given steroids and albuterol with improvement of symptoms. Viral respiratory pathogen panel was obtained and was negative. Chest x-ray showed no acute process. Patient was also given ceftriaxone and azithromycin for possible pneumonia. Pulmonology and cardiology were consulted by ED. Admitted for further management. Upon arrival to floor, patient withadequate oxygen saturation on room air and states that he is feeling much better, with significant improvement of symptoms and feeling almost back to baseline. . Review of Systems Constitutional: No fever, No chills. Eye: No recent visual problem. Respiratory: Shortness of breath, Cough. Cardiovascular: chest pressure, No chest pain. Gastrointestinal: No nausea, No vomiting, No abdominal pain. Genitourinary: No dysuria. Hematology/Lymphatics: No bleeding tendency. Musculoskeletal: No joint pain, No muscle pain. Integumentary: No rash. Neurologic: Alert and oriented X4, No numbness, No tingling. Psychiatric All other systems are negative Health Status Allergies: Allergies (1) Active Reaction NKA None Documented Current medications: Home Medications: acetaminophen: 650 mg, Oral albuterol: 2 puff(s), Inhalation, i0qblkc, PRN (shortness of breath) albuterol: 2 puff(s), Inhalation, s4ufjbs, PRN (shortness of breath), Slow Breath inhale slowly anddeeply allopurinol: 1 tablet(s), Oral, daily, FOR GOUT PREVENTION. aspirin: 81 mg = 1 tablet(s), Oral, daily cephalexin: 250 mg = 1 capsule(s), qhs fexofenadine: 180 mg = 1 tablet(s), Oral, daily fluticasone-salmeterol: 1 puff(s), Inhalation, bid hydroCHLOROthiazide: 1 tablet(s), Oral, qam multivitamin: 1 tablet(s), Oral, daily naproxen: 1 tablet(s), Oral, j8ifgwq, PRN (headache) omeprazole: 1 capsule(s), Oral, daily predniSONE: Taper from 40 mg q3day by 10 mg till off, Oral, daily prochlorperazine: 10 mg = 1 tablet(s), Oral, z6azqiw, PRN (nausea) rosuvastatin: 1 tablet(s), Oral, HS tamsulosin: 0.4 mg = 1 capsule(s), Oral, pm after dinner Problem list: Active Problems (20) Acid reflux disease Acute exacerbation of chronic obstructive airways disease J44.1 ASHD (arteriosclerotic heart disease) I25.10 Asthma Asthma J45.909 Bulging lumbar disc Cataract COPD (chronic obstructive pulmonary disease) COPD (chronic obstructive pulmonary disease) J44.9 Coronary arteriosclerosis in [place] artery Elevated cholesterol E78.00 Gout High blood pressure High cholesterol HTN (hypertension) I10 Hyperplasia of prostate Kidney stone Lesion of lung Nocturia Urinary incontinence Histories Past Medical History: Active Asthma (034671659) COPD (chronic obstructive pulmonary disease) (68374459) Bulging lumbar disc (874319303) High blood pressure (9639002405) High cholesterol (44586838) Acid reflux disease (745288104) Nocturia (490306689) Comments: 05/01/2010 CDT 05:40 CDT - Rose Mary Valdovinos RN frequency Resolved 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 Deep vein thrombosis (DVT) (315258936): Resolved. Chest pain (88353132): Resolved. Family History: Stroke Mother () Arthritis Sister Breast cancer Mother () Procedure history: Hip arthroplasty ([id number]). Comments: 05/01/2010 05:41 CDCielo - Rose Mary Valdovinos RN left Prostate implantation ([id number]). lumbar back surg 04/2010. CABG x 5 - Coronary artery bypass grafts x 5 ([id number]). Comments: 10/14/2017 10:59 LOBO - Olga Rosenbaum RN 2015 CE - Cataract extraction ([id number]). Social History Social & Psychosocial Habits Alcohol 01/24/2022 Use: Current every day alcohol Type: Liquor Frequency: Daily Last Use 1 drink Substance Abuse 01/24/2022 Use: Never drug user Tobacco 07/25/2022 Smoking Tobacco Use: Former smoker Smokeless Tobacco use: Never Tobacco Cessation Counseling Requested N/A Type: Cigarettes Stopped at age: 55 Years . Physical Examination Vitals Temp BP Pulse RR SpO2 FIO2 Date Wt(kg) Wt(lb) 09/22 22:30 ---- 143/99 --- 26 --- --- 09/22 95.5 210 09/22 22:15 ---- 125/100 --- 29 --- --- 09/22 96.2 212 09/22 22:00 ---- 141/84 --- 27 --- --- 09/22 21:45 ---- 139/92 --- 27 --- --- 09/22 21:30 ---- 126/89 --- 24 --- --- 24 Hr Tmax: 36.2 at 09/22 17:43 36 Hr Tmax: 36.2 at 09/22 17:43 Vital Signs are the last 5 in the past 48 hours. Weights display the last 5 within 7 days. Initial Wt: 09/22 96.2 kg 212 lb Measurements from flowsheet : Measurements 09/22/2022 23:35 OUTBOUND SALES CONSULTANT Height 178 cm Weight 95.5 kg Body Surface Area 2.173 m2 Body Mass Index 30.14 kg/m2 09/22/2022 17:43 OUTBOUND SALES CONSULTANT Height 178 cm Height Source Stated Weight 96.2 kg Weight Source Actual Body Mass Index 30.36 kg/m2 Intake and Output Intake Output Balance 09/22/2022 7a-3p 0 0 0 3p-11p 201.25 0 201.25 11p-7a 63.75 200 -136.25 Totals 265 200 65 09/21/2022 7a-3p 0 0 0 3p-11p 0 0 0 11p-7a 0 0 0 Totals 0 0 0 General: No acute distress. HENT: Normocephalic. Eye: Normal conjunctiva. Neck: Supple. Respiratory: Lungs are clear to auscultation. Cardiovascular: Normal rate, Regular rhythm. Gastrointestinal: Soft, Non-tender, Non-distended. Musculoskeletal 1+ b/l LE edema . Integumentary: Warm, Dry. Neurologic: Alert, Oriented. Psychiatric: Appropriate mood & affect. Review / Management Results review: Labs (Last four charted values) WBC 7.0 (SEP 22) Hgb 14.9 (SEP 22) Hct 45.7 (SEP 22) Plt 169 (SEP 22) Na 143 (SEP 22) K 4.3 (SEP 22) CO2 24 (SEP 22) Cl H 110 (SEP 22) Cr 1.1 (SEP 22) BUN H 28 (SEP 22) Glucose Random H 125 (SEP 22) Mg 1.8 (SEP 22) Ca 9.5 (SEP 22) INR 1.1 (SEP 22) PTT 29.2 (SEP 22) Troponin 0.02 (SEP 22) 0.02 (SEP 22) . Chest x-ray results Include last 36 hours of Radiology interpretations COMPLETED RADIOLOGY IMAGING STUDIES: CHEST SINGLE VIEW [Auth (Verified)] (09/22 1934): FINAL IMPRESSION:1. Previously noted right upper and mid lung opacities are lessconspicuous on the current study.2. Cardiac silhouette enlargement.. Radiology results: Include last 36 hours of Radiology interpretations COMPLETED RADIOLOGY IMAGING STUDIES: CHEST SINGLE VIEW [Auth (Verified)] (09/22 1934): FINAL IMPRESSION:1. Previously noted right upper and mid lung opacities are lessconspicuous on the current study.2. Cardiac silhouette enlargement.. . Impression and Plan Diagnosis Shortness of breath and cough, probable COPD exacerbation -Wheezing was noted on exam in the ED, but not evident on exam upon arrival to floor -Elevated BNP and chronic unchanged mild bilateral lower extremity edema; however, no orthopnea, chest x-ray clear, and symptoms not consistent with CHF/CHF exacerbation -Respiratory pathogen panel was negative -Chest x-ray with no acute process -Continue IV steroids for now; can likely transition to p.o. in the next 24 hours -Continue ceftriaxone and azithromycin (started in ED) for now, but can likely de-escalate in the next 24 hours -Monitor vitals -Pulmonology and cardiology consulted by ED, appreciate recommendations -Continue scheduled and as needed duo nebs -Continue home Advair inhaler -Lower extremity duplex ultrasound ordered given lower extremity edema, although DVT unlikely --- Consider additional imaging/work-up, including possible CT and echocardiogram--will defer to pulmonology and cardiology Atypical chest pressure on admission, resolved -Symptoms atypical and not consistent with ACS -EKG without changes suggestive of acute ischemia -Troponins negative x3 -Cardiology consulted by ED Tachycardia -EKG was read as atrial fibrillation with ventricular rate of 107, but on review of EKG, unclear jeff doan -Cardiology consulted by ED; appreciate recommendations -Monitor on telemetry -Monitor vitals closely History of CAD status post CABG -Continue home low dose aspirin and statin History of hypertension -Continue home hydrochlorothiazide History of BPH -Continue home tamsulosin History of gout -Continue home allopurinol . [Electronically Signed on 09/23/2022 07:43 AM OUTBOUND SALES CONSULTANT] Darlene Kuo MD [Electronically Signed on 09/23/2022 08:18 AM OUTBOUND SALES CONSULTANT] Darlene Kuo MD Nurse Emergency department Note * Osito Vasquez RN: PERFORM Event Display: ED Note-Nursing Authored Date: [id number] ED Patient Rounds Entered On: 09/22/2022 21:10 OUTBOUND SALES CONSULTANT Performed On: 09/22/2022 21:09 OUTBOUND SALES CONSULTANT by Osito Vasquez RN Visual Check Visual Check Performed : Yes Interventions Offered : Toileting, Change of position, Pain assessment Primary Pain Intensity : 0 Osito Vasquez RN - 09/22/2022 21:09 OUTBOUND SALES CONSULTANT Assess/Tx Level of Consciousness : Alert Orientation : Oriented x 4 Affect/Behavior : Calm, Cooperative Skin Color ED : Normal for ethnicity Rounding Assessment : Updated on plan of care, No change in condition, No distress observed/reported Osito Vasquez RN - 09/22/2022 21:09 OUTBOUND SALES CONSULTANT * Osito Vasquez RN: PERFORM Event Display: ED Note-Nursing Authored Date: [id number] ED Patient Rounds Entered On: 09/22/2022 20:39 OUTBOUND SALES CONSULTANT Performed On: 09/22/2022 20:39 OUTBOUND SALES CONSULTANT by Osito Vasquez RN Visual Check Visual Check Performed : Yes Interventions Offered : Toileting, Change of position, Pain assessment Primary Pain Intensity : 0 Osito Vasquez RN - 09/22/2022 20:39 OUTBOUND SALES CONSULTANT Assess/Tx Level of Consciousness : Alert Orientation : Oriented x 4 Affect/Behavior : Calm, Cooperative Skin Color ED : Normal for ethnicity Rounding Assessment : Updated on plan of care, No change in condition, No distress observed/reported Osito Vasquez RN - 09/22/2022 20:39 OUTBOUND SALES CONSULTANT * Osito Vasquez RN: PERFORM Event Display: ED Note-Nursing Authored Date: [id number] ED Patient Rounds Entered On: 09/22/2022 20:00 OUTBOUND SALES CONSULTANT Performed On: 09/22/2022 19:59 OUTBOUND SALES CONSULTANT by Osito Vasquez RN Visual Check Visual Check Performed : Yes Interventions Offered : Toileting, Change of position, Pain assessment Primary Pain Intensity : 0 Osito Vasquez RN - 09/22/2022 19:59 OUTBOUND SALES CONSULTANT Assess/Tx Level of Consciousness : Alert Orientation : Oriented x 4 Affect/Behavior : Calm, Cooperative Skin Color ED : Normal for ethnicity Rounding Assessment : Updated on plan of care, No change in condition, No distress observed/reported Osito Vasquez RN - 09/22/2022 19:59 OUTBOUND SALES CONSULTANT * Osito Vasquez RN: PERFORM Event Display: ED Note-Nursing Authored Date: [id number] ED Patient Rounds Entered On: 09/22/2022 19:15 OUTBOUND SALES CONSULTANT Performed On: 09/22/2022 19:15 OUTBOUND SALES CONSULTANT by Osito Vasquez RN Visual Check Visual Check Performed : Yes Interventions Offered : Toileting, Change of position, Pain assessment Primary Pain Intensity : 0 Osito Vasquez RN - 09/22/2022 19:15 OUTBOUND SALES CONSULTANT Assess/Tx Level of Consciousness : Alert Orientation : Oriented x 4 Affect/Behavior : Calm, Cooperative Skin Color ED : Normal for ethnicity Rounding Assessment : Updated on plan of care, No change in condition, No distress observed/reported Osito Vasquez RN - 09/22/2022 19:15 OUTBOUND SALES CONSULTANT * Osito Vasquez RN: PERFORM Event Display: ED Note-Nursing Authored Date: [id number] ED Patient Rounds Entered On: 09/22/2022 18:19 OUTBOUND SALES CONSULTANT Performed On: 09/22/2022 18:17 OUTBOUND SALES CONSULTANT by Osito Vasquez RN Visual Check Visual Check Performed : Yes Interventions Offered : Toileting, Change of position, Pain assessment Primary Pain Intensity : 0 Osito Vasquez RN - 09/22/2022 18:17 OUTBOUND SALES CONSULTANT Assess/Tx Level of Consciousness : Alert Orientation : Oriented x 4 Affect/Behavior : Calm, Cooperative Skin Color ED : Normal for ethnicity Rounding Assessment : Updated on plan of care, No change in condition, No distress observed/reported Osito Vasquez RN - 09/22/2022 18:17 OUTBOUND SALES CONSULTANT * Osito Vasquez RN: PERFORM Event Display: ED Note-Nursing Authored Date: ED Document Historical Medications Entered On: 09/22/2022 18:17 OUTBOUND SALES CONSULTANT Performed On: 09/22/2022 18:17 OUTBOUND SALES CONSULTANT by Osito Vasquez [employer]ION[employer] MANAGER Medication List Medication List (As Of: 09/22/2022 18:17 OUTBOUND SALES CONSULTANT) Prescription/Discharge Order prochlorperazine : prochlorperazine ; Status: Prescribed ; Ordered As Mnemonic: prochlorperazine 10 mg oral tablet ;Simple Display Line: 10 mg, 1 tablet(s), Oral, [id number], for 30 day(s), PRN: nausea, 30 each, 1 Refill(s) ; Ordering Provider: Luis Fernando Vo M.D.; Catalog Code: prochlorperazine ; Order Dt/Tm: 08/16/2022 14:04 CDT allopurinol : allopurinol ; Status: Prescribed ; Ordered As Mnemonic: allopurinol 100 mg oral tablet ; Simple Display Line: 1 tablet(s), Oral, daily, FOR GOUT PREVENTION., 90 tablet(s), 3 Refill(s) ; Ordering Provider: Luis Fernando Vo M.D.; Catalog Code: allopurinol ; Order Dt/Tm: 08/06/2022 09:17 CDT albuterol : albuterol ; Status: Prescribed ; Ordered As Mnemonic: albuterol 90 mcg/inh inhaler ; Simple Display Line: 2 puff(s), Inhalation, [id number], Slow Breath inhale slowly and deeply , PRN: shortness of breath, 1 each, 3 Refill(s) ; Ordering Provider: Susan Montiel MD; Catalog Code: albuterol ; OrderDt/Tm: 07/25/2022 12:04 CDT rosuvastatin : rosuvastatin ; Status: Prescribed ; Ordered As Mnemonic: rosuvastatin 20 mg oral tablet ; Simple Display Line: 1 tablet(s), Oral, HS, 90 tablet(s), 3 Refill(s) ; Ordering Provider: Luis Fernando Vo M.D.; Catalog Code: rosuvastatin ; Order Dt/Tm: 05/29/2022 12:31 CDT predniSONE : predniSONE ; Status: Prescribed ; Ordered As Mnemonic: predniSONE 10 mg oral tablet ; Simple Display Line: Taper from 40 mg q3day by 10 mg till off, Oral, daily, for 12 day(s), 30 tablet(s), 0 Refill(s) ; Ordering Provider: Susan Montiel MD; Catalog Code: predniSONE ; Order Dt/Tm: 01/24/2022 13:14 CDT fluticasone-salmeterol : fluticasone-salmeterol ; Status: Prescribed ; Ordered As Mnemonic: Advair Diskus 250 mcg-50 mcg inhalation powder ; Simple Display Line: 1 puff(s), Inhalation, bid, 180 each, 10 Refill(s) ; Ordering Provider: Susan Montiel MD; Catalog Code: fluticasone-salmeterol ; Order Dt/Tm: 01/22/2022 12:27 CDT hydroCHLOROthiazide : hydroCHLOROthiazide ; Status: Prescribed ; Ordered As Mnemonic: hydroCHLOROthiazide 25 mg oral tablet ; Simple Display Line: 1 tablet(s), Oral, qam, 90 tablet(s), 3 Refill(s) ; Ordering Provider: Luis Fernando Vo M.D.; Catalog Code: hydroCHLOROthiazide ; Order Dt/Tm: 01/18/2022 13:27 CDT omeprazole : omeprazole ; Status: Prescribed ; Ordered As Mnemonic: omeprazole 20 mg oral delayed release capsule ; Simple Display Line: 1 capsule(s), Oral, daily, 90 capsule(s), 3 Refill(s) ; Ordering Provider: Luis Fernando Vo M.D.; Catalog Code: omeprazole ; Order Dt/Tm: 09/25/2021 08:33 OUTBOUND SALES CONSULTANT albuterol : albuterol ; Status: Prescribed ; Ordered As Mnemonic: albuterol 90 mcg/inh inhaler ; Simple Display Line: 2 puff(s), Inhalation, [id number], for 30 day(s), PRN: shortness of breath, 1 each, 3 Refill(s) ; Ordering Provider: Susan Montiel MD; Catalog Code: albuterol ; Order Dt/Tm: 05/31/2020 14:28CDT Home Meds cephalexin : cephalexin ; Status: Documented ; Ordered As Mnemonic: cephalexin 250 mg oral capsule ; Simple Display Line: 250 mg, 1 capsule(s), qhs, 0 Refill(s) ; Catalog Code: cephalexin ; Order Dt/Tm: 01/24/2022 09:09 CDT tamsulosin : tamsulosin ; Status: Documented ; Ordered As Mnemonic: Flomax 0.4 mg oral capsule ; Simple Display Line: 0.4 mg, 1 capsule(s), Oral, pm after dinner, 90 capsule(s), 0 Refill(s) ; Catalog Code: tamsulosin ; Order Dt/Tm: 04/10/2019 11:17 CDT ; Comment: Capsules should be swallowed whole; do not crush, chew, or open. naproxen : naproxen ; Status: Documented ; Ordered As Mnemonic: Aleve Caplet 220 mg oral tablet ; Simple Display Line: 1 tablet(s), Oral, [id number], PRN: headache, 30 tablet(s), 0 Refill(s) ; Catalog Code: naproxen ; Order Dt/Tm: 11/08/2017 10:35 OUTBOUND SALES CONSULTANT fexofenadine : fexofenadine ; Status: Documented ; Ordered As Mnemonic: fexofenadine 180 mg oral tablet ; SimpleDisplay Line: 180 mg, 1 tablet(s), Oral, daily, 30 tablet(s), 0 Refill(s) ; Catalog Code: fexofenadine ; Order Dt/Tm: 11/08/2017 10:34 OUTBOUND SALES CONSULTANT aspirin : aspirin ; Status: Documented ; Ordered As Mnemonic: aspirin 81 mg oral enteric coated tablet ; Simple Display Line: 81 mg, 1 tablet(s), Oral, daily, 0 Refill(s) ; Catalog Code: aspirin ; Order Dt/Tm: 11/08/2017 10:33 OUTBOUND SALES CONSULTANT multivitamin : multivitamin ; Status: Documented ; Ordered As Mnemonic: Multivitamin oral tablet ; Simple Display Line: 1 tablet(s), Oral, daily, 30 tablet(s) ; Catalog Code: multivitamin ; Order Dt/Tm: 11/12/2012 09:59 OUTBOUND SALES CONSULTANT * Sally Fabian RN: PERFORM Event Display: ED Note-Nursing Authored Date: [id number] ED Triage Entered On: 09/22/2022 17:47 OUTBOUND SALES CONSULTANT Performed On: 09/22/2022 17:43 OUTBOUND SALES CONSULTANT by Sally Fabian RN Reason For Visit Chief Complaint Description : SOB for 2 days. Productive cough with clear to yellow sputum. Chest heaviness Sally Fabian RN - 09/22/2022 17:51 OUTBOUND SALES CONSULTANT Reg STK Was Last Known Well Date and Time Witnessed : N/A ED Allergies/Home Meds : Document assessment Preferred Language of Patient/Caregiver ED : Maltese Workman's Comp : No Temperature Temporal Artery : 36.2 DegC(Converted to: 97.2 DegF) Respiratory Rate : 18 br/min Peripheral Pulse Rate : 106 bpm (H) Systolic Blood Pressure : 137 mm Hg Diastolic Blood Pressure : 89 mm Hg Oxygen Saturation : 97 % Height : 178 cm(Converted to: 5 ft 10 inch(es)) Weight Source : Actual Weight : 96.2 kg(Converted to: 212.085 pound(s)) ED Oxygen Therapy Mode of Arrival : Room air Height Source : Stated Body Mass Index : 30.36 kg/m2 Sally Fabian RN - 09/22/2022 17:43 OUTBOUND SALES CONSULTANT DCP GENERIC CODE Tracking Group : Emergency Department Tracking Acuity : 2 - Emergent Sally Fabian RN - 09/22/2022 17:43 OUTBOUND SALES CONSULTANT Primary Pain Intensity : 5 (H*) Sally Fabian RN - 09/22/2022 17:43 OUTBOUND SALES CONSULTANT (As Of: 09/22/2022 17:51 OUTBOUND SALES CONSULTANT) Problems(Active) Acid reflux disease (SNOMED CT :311947816 ) Name of Problem: Acid reflux disease ; Recorder: Rose Mary Valdovinos RN; Confirmation: Confirmed ; Classification: Medical ; Code: [id number] ; Contributor System: [employer] ; Last Updated: 07/11/2014 10:29 CDT ; Life Cycle Date: 05/01/2010 ; Life Cycle Status: Active ; Vocabulary: SNOMED CT Acute exacerbation of chronic obstructive airways disease J44.1 (ICD-10-CM :J44.1 ) Name of Problem: Acute exacerbation of chronic obstructive airways disease J44.1 ; Recorder: Linda Vaughan; Confirmation: Confirmed ; Classification: Medical ; Code: J44.1 ; Contributor System: [employer] ; Last Updated: 04/09/2019 13:43 CDT ; Life Cycle Date: 12/31/2018 ; Life Cycle Status: Active ; Responsible Provider: Linda Vaughan; Vocabulary: ICD-10-CM ASHD (arteriosclerotic heart disease) I25.10 (ICD-10-CM :I25.10 ) Name of Problem: ASHD (arteriosclerotic heart disease) I25.10 ; Recorder: Linda Vaughan; Confirmation: Confirmed ; Classification: Medical ; Code: I25.10 ; Contributor System: PowerChart ; Last Updated: 04/09/2019 13:48 CDT ; Life Cycle Date: 12/31/2018 ; Life Cycle Status: Active ; Responsible Provider: Linda Vaughan; Vocabulary: ICD-10-CM Asthma (SNOMED CT :394638139 ) Name of Problem: Asthma ; Recorder: Rose Mary Valdovinos RN; Confirmation: Confirmed ; Classification:Medical ; Code: [id number] ; Contributor System: Power[employer] ; Last Updated: 07/11/2014 10:27 CDT ; Life Cycle Date: 05/01/2010 ; Life Cycle Status: Active ; Vocabulary: SNOMED CT Asthma J45.909 (ICD-10-CM :J45.909 ) Name of Problem: Asthma J45.909 ; Recorder: Linda Vaughan; Confirmation: Confirmed ; Classification: Medical ; Code: J45.909 ; Contributor System: Power[employer] ; Last Updated: 04/09/2019 13:48 CDT ; LifeCycle Date: 12/31/2018 ; Life Cycle Status: Active ; Responsible Provider: Linda Vaughan; Vocabulary:ICD-10-CM Bulging lumbar disc (SNOMED CT :066472614 ) Name of Problem: Bulging lumbar disc ; Recorder: Rose Mary Valdovinos RN; Confirmation: Confirmed ; Classification: Medical ; Code: [id number] ; Contributor System: PowerChart ; Last Updated: 07/11/2014 10:27 CDT ; Life Cycle Date: 05/01/2010 ; Life Cycle Status: Active ; Vocabulary: SNOMED CT Cataract (SNOMED CT :6478548295 ) Name of Problem: Cataract ; Recorder: Bath, Leonie L RN; Confirmation: Confirmed ; Classification:Medical ; Code: [id number] ; Contributor System: PowerChart ; Last Updated: 11/08/2017 10:24 OUTBOUND SALES CONSULTANT ; Life Cycle Date: 11/08/2017 ; Life Cycle Status: Active ; Vocabulary: SNOMED CT COPD (chronic obstructive pulmonary disease) (SNOMED CT :52504847 ) Name of Problem: COPD (chronic obstructive pulmonary disease) ; Recorder: Rose Mary Valdovinos RN; Confirmation: Confirmed ; Classification: Medical ; Code: [id number] ; Contributor System: PowerChart ; Last Updated: 03/04/2019 16:52 CDT ; Life Cycle Date: 03/04/2019 ; Life Cycle Status: Active ; Vocabulary: SNOMED CT COPD (chronic obstructive pulmonary disease) J44.9 (ICD-10-CM :J44.9 ) Name of Problem: COPD (chronic obstructive pulmonary disease) J44.9 ; Recorder: Linda Vauhgan; Confirmation: Confirmed ; Classification: Medical ; Code: J44.9 ; Contributor System: Power[employer] ; Last Updated: 04/09/2019 13:42 CDT ; Life Cycle Date: 12/31/2018 ; Life Cycle Status: Active ; Responsible Provider: Linda Vaughan; Vocabulary: ICD-10-CM Coronary arteriosclerosis in [place] artery (SNOMED CT :4356078381 ) Name of Problem: Coronary arteriosclerosis in [place] artery ; Recorder: Val Hendrickson V; Confirmation: Confirmed ; Classification: Medical ; Code: [id number] ; Contributor System: PowerChart ; Last Updated: 07/27/2014 19:53 CDT ; Life Cycle Date: 07/27/2014 ; Life Cycle Status: Active ; Vocabulary: SNOMED CT Elevated cholesterol E78.00 (ICD-10-CM :E78.00 ) Name of Problem: Elevated cholesterol E78.00 ; Recorder: Linda Vaughan; Confirmation: Confirmed ; Classification: Medical ; Code: E78.00 ; Contributor System: PowerChart ; Last Updated: 04/09/2019 13:42CDT ; Life Cycle Date: 12/31/2018 ; Life Cycle Status: Active ; Responsible Provider: Gianni Vaughan V ocabulary: ICD-10-CM Gout (SNOMED CT :758902382 ) Name of Problem: Gout ; Recorder: Val Hendrickson V; Confirmation: Confirmed ; Classification: Medical ; Code: 870415151 ; Contributor System: PowerChart ; Last Updated: 07/27/2014 19:54 CDT ; Life Cycle Date: 07/27/2014 ; Life Cycle Status: Active ; Vocabulary: SNOMED CT H/O: lung cancer (SNOMED CT :3683010881 ) Name of Problem: H/O: lung cancer ; Recorder: Susan Montiel MD; Confirmation: Confirmed ; Classification: Medical ; Code: [id number] ; Contributor System: PowerChart ; Last Updated: 01/24/2022 13:15 CDT ; Life Cycle Date: 01/24/2022 ; Life Cycle Status: Active ; Responsible Provider: Susan Montiel MD; Vocabulary: SNOMED CT High blood pressure (SNOMED CT :4141262635 ) Name of Problem: High blood pressure ; Recorder: Rose Mary Valdovinos RN; Confirmation: Confirmed ; Classification: Medical ; Code: [id number] ; Contributor System: PowerChart ; Last Updated: 07/11/2014 10:28 CDT ; Life Cycle Date: 05/01/2010 ; Life Cycle Status: Active ; Vocabulary: SNOMED CT High cholesterol (SNOMED CT :54669427 ) Name of Problem: High cholesterol ; Recorder: Rose Mary Valdovinos RN; Confirmation: Confirmed ; Classification: Medical ; Code: 11973532 ; Contributor System: PowerChart ; Last Updated: 07/11/2014 10:28 CDT ; Life Cycle Date: 05/01/2010 ; Life Cycle Status: Active ; Vocabulary: SNOMED CT HTN (hypertension) I10 (ICD-10-CM :I10 ) Name of Problem: HTN (hypertension) I10 ; Recorder: Linda Vaughan; Confirmation: Confirmed ; Classification: Medical ; Code: I10 ; Contributor System: PowerChart ; Last Updated: 04/09/2019 13:48 CDT ; Life Cycle Date: 12/31/2018 ; Life Cycle Status: Active ; Responsible Provider: Linda Vaughan; Vocabulary: ICD-10-CM Hyperplasia of prostate (SNOMED CT :2233202069 ) Name of Problem: Hyperplasia of prostate ; Recorder: Val Hendrickson V; Confirmation: Confirmed ; Classification: Medical ; Code: [id number] ; Contributor System: PowerChart ; Last Updated: 07/27/2014 19:53 CDT ; Life Cycle Date: 07/27/2014 ; Life Cycle Status: Active ; Vocabulary: SNOMED CT Kidney stone (SNOMED CT :359268431 ) Name of Problem: Kidney stone ; Recorder: Wendy Kelly EMPLOYMENT CONSULTANT; Confirmation: Confirmed ; Classification: Medical ; Code: 597566098 ; Contributor System: [employer] ; Last Updated: 01/17/2021 10:43 CDT ; Life Cycle Date: 01/17/2021 ; Life Cycle Status: Active ; Responsible Provider: Wendy Kelly EMPLOYMENT CONSULTANT; Vocabulary: SNOMED CT Lesion of lung (SNOMED CT :778219626 ) Name of Problem: Lesion of lung ; Recorder: Wendy Kelly EMPLOYMENT CONSULTANT; Confirmation: Confirmed ; Classification: Medical ; Code: 717745107 ; Contributor System: [employer] ; Last Updated: 01/17/2021 10:43 CDT ; Life Cycle Date: 01/17/2021 ; Life Cycle Status: Active ; Responsible Provider: Wendy Kelly EMPLOYMENT CONSULTANT; Vocabulary: SNOMED CT Nocturia (SNOMED CT :475377962 ) Name of Problem: Nocturia ; Recorder: Rose Mary Valdovinos RN; Confirmation: Confirmed ; Classification: Medical ; Code: 621441034 ; Contributor System: PowerChart ; Last Updated: 07/11/2014 10:29 CDT ; Life Cycle Date: 05/01/2010 ; Life Cycle Status: Active ; Vocabulary: SNOMED CT ; Comments: 05/01/2010 05:40 - Rose Mary Valdovinos RN frequency Urinary incontinence (SNOMED CT :9676063879 ) Name of Problem: Urinary incontinence ; Recorder: Olga Rosenbaum RN; Confirmation: Confirmed ; Classification: Medical ; Code: [id number] ; Contributor System: PowerChart ; Last Updated: 10/14/2017 10:57 OUTBOUND SALES CONSULTANT ; Life Cycle Date: 10/14/2017 ; Life Cycle Status: Active ; Vocabulary: SNOMED CT Diagnoses(Active) Shortness of breath Date: 09/22/2022 ; Diagnosis Type: Reason For Visit ; Confirmation: Confirmed ; Clinical Dx: Shortness of breath ; Classification: Medical ; Clinical Service: Emergency medicine ; Code: PNED ; Probability: 0 ; Diagnosis Code: [id number] Allergies (As Of: 09/22/2022 17:47 OUTBOUND SALES CONSULTANT) Allergies (Active) NKA Estimated Onset Date: Unspecified ; Created By: Anahy Vo RN; Reaction Status: Active ; Category: Drug ; Substance: NKA ; Type: Allergy ; Updated By: Anahy Vo RN; Reviewed Date: 09/22/2022 17:45 OUTBOUND SALES CONSULTANT Medication List (As Of: 09/22/2022 17:47 OUTBOUND SALES CONSULTANT) Prescription/Discharge Order omeprazole : omeprazole ; Status: Prescribed ; Ordered As Mnemonic: omeprazole 20 mg oral delayed release capsule ; Simple Display Line: 1 capsule(s), Oral, daily, 90 capsule(s), 3 Refill(s) ; Ordering Provider: Luis Fernando Vo M.D.; Catalog Code: omeprazole ; Order Dt/Tm: 09/25/2021 08:33 OUTBOUND SALES CONSULTANT fluticasone-salmeterol : fluticasone-salmeterol ; Status: Prescribed ; Ordered As Mnemonic: Advair Diskus 250 mcg-50 mcg inhalation powder ; Simple Display Line: 1 puff(s), Inhalation, bid, 180 each, 10 Refill(s) ; Ordering Provider: Susan Montiel MD; Catalog Code: fluticasone-salmeterol ; Order Dt/Tm: 01/22/2022 12:27 CDT allopurinol : allopurinol ; Status: Prescribed ; Ordered As Mnemonic: allopurinol 100 mg oral tablet ; Simple Display Line: 1 tablet(s), Oral, daily, FOR GOUT PREVENTION., 90 tablet(s), 3 Refill(s) ; Ordering Provider: Luis Fernando Vo M.D.; Catalog Code: allopurinol ; Order Dt/Tm: 08/06/2022 09:17 CDT rosuvastatin : rosuvastatin ; Status: Prescribed ; Ordered As Mnemonic: rosuvastatin 20 mg oral tablet ; Simple Display Line: 1 tablet(s), Oral, HS, 90 tablet(s), 3 Refill(s) ; Ordering Provider: Luis Fernando Vo M.D.; Catalog Code: rosuvastatin ; Order Dt/Tm: 05/29/2022 12:31 CDT hydroCHLOROthiazide : hydroCHLOROthiazide ; Status: Prescribed ; Ordered As Mnemonic: hydroCHLOROthiazide 25 mg oral tablet ; Simple Display Line: 1 tablet(s), Oral, qam, 90 tablet(s), 3 Refill(s) ; Ordering Provider: Luis Fernando Vo M.D.; Catalog Code: hydroCHLOROthiazide ; Order Dt/Tm: 01/18/2022 13:27 CDT prochlorperazine : prochlorperazine ; Status: Prescribed ; Ordered As Mnemonic: prochlorperazine 10 mg oral tablet ;Simple Display Line: 10 mg, 1 tablet(s), Oral, [id number], for 30 day(s), PRN: nausea, 30 each, 1 Refill(s) ; Ordering Provider: Luis Fernando Vo M.D.; Catalog Code: prochlorperazine ; Order Dt/Tm: 08/16/2022 14:04 CDT albuterol : albuterol ; Status: Prescribed ; Ordered As Mnemonic: albuterol 90 mcg/inh inhaler ; Simple Display Line: 2 puff(s), Inhalation, [id number], for 30 day(s), PRN: shortness of breath, 1 each, 3 Refill(s) ; Ordering Provider: Susan Montiel MD; Catalog Code: albuterol ; Order Dt/Tm: 05/31/2020 14:28CDT albuterol : albuterol ; Status: Prescribed ; Ordered As Mnemonic: albuterol 90 mcg/inh inhaler ; Simple Display Line: 2 puff(s), Inhalation, [id number], Slow Breath inhale slowly and deeply , PRN: shortness of breath, 1 each, 3 Refill(s) ; Ordering Provider: Susan Montiel MD; Catalog Code: albuterol ; OrderDt/Tm: 07/25/2022 12:04 CDT predniSONE : predniSONE ; Status: Prescribed ; Ordered As Mnemonic: predniSONE 10 mg oral tablet ; Simple Display Line: Taper from 40 mg q3day by 10 mg till off, Oral, daily, for 12 day(s), 30 tablet(s), 0 Refill(s) ; Ordering Provider: Susan Montiel MD; Catalog Code: predniSONE ; Order Dt/Tm: 01/24/2022 13:14 CDT Home Meds tamsulosin : tamsulosin ; Status: Documented ; Ordered As Mnemonic: Flomax 0.4 mg oral capsule ; Simple Display Line: 0.4 mg, 1 capsule(s), Oral, pm after dinner, 90 capsule(s), 0 Refill(s) ; Catalog Code: tamsulosin ; Order Dt/Tm: 04/10/2019 11:17 CDT ; Comment: Capsules should be swallowed whole; do not crush, chew, or open. multivitamin : multivitamin ; Status: Documented ; Ordered As Mnemonic: Multivitamin oral tablet ; Simple Display Line: 1 tablet(s), Oral, daily, 30 tablet(s) ; Catalog Code: multivitamin ; Order Dt/Tm: 11/12/2012 09:59 OUTBOUND SALES CONSULTANT naproxen : naproxen ; Status: Documented ; Ordered As Mnemonic: Aleve Caplet 220 mg oral tablet ; Simple Display Line: 1 tablet(s), Oral, [id number], PRN: headache, 30 tablet(s), 0 Refill(s) ; Catalog Code: naproxen ; Order Dt/Tm: 11/08/2017 10:35 OUTBOUND SALES CONSULTANT fexofenadine : fexofenadine ; Status: Documented ; Ordered As Mnemonic: fexofenadine 180 mg oral tablet ; SimpleDisplay Line: 180 mg, 1 tablet(s), Oral, daily, 30 tablet(s), 0 Refill(s) ; Catalog Code: fexofenadine ; Order Dt/Tm: 11/08/2017 10:34 OUTBOUND SALES CONSULTANT cephalexin : cephalexin ; Status: Documented ; Ordered As Mnemonic: cephalexin 250 mg oral capsule ; Simple Display Line: 250 mg, 1 capsule(s), qhs, 0 Refill(s) ; Catalog Code: cephalexin ; Order Dt/Tm: 01/24/2022 09:09 CDT aspirin : aspirin ; Status: Documented ; Ordered As Mnemonic: aspirin 81 mg oral enteric coated tablet ; Simple Display Line: 81 mg, 1 tablet(s), Oral, daily, 0 Refill(s) ; Catalog Code: aspirin ; Order Dt/Tm: 11/08/2017 10:33 OUTBOUND SALES CONSULTANT General Travelled or Contact in last month? (ED) : No travel and no contact with ill traveler in the last month Status : N/A Child/Parent Domestic Concerns : None Chemotherapy Med. Currently Taking : No Little interest/pleasure in doing things? : No Feeling down, depressed, or hopeless? : No Sally Fabian RN - 09/22/2022 17:43 OUTBOUND SALES CONSULTANT Severe Sepsis Triage Screening Tool Does the Patient Have Any Three of the Following : None Is the Pt's SBP < 90 or MAP < 65 mmHg? : No Sally Fabian RN - 09/22/2022 17:43 OUTBOUND SALES CONSULTANT Novel Coronavirus Assessment Novel Coronavirus Current Fever : No Novel Coronavirus Fever 14 days : No Novel Coronavirus Exposed COVID 14 days : No Novel Coronavirus Previous Outside Labs : No Novel Coronavirus Received Vaccine : Yes Novel Coronavirus Vaccine Type : Moderna Novel Coronavirus Completed Vac Series : Yes Novel Coronavirus Booster Vaccine Received : Yes Sally Fabian RN - 09/22/2022 17:43 OUTBOUND SALES CONSULTANT Physician Emergency department Note * Alfonzo Durham M.D.: MODIFY, SIGN, VERIFY, PERFORM, MODIFY, MODIFY Event Display: ED Note-Physician Authored Date: Patient: BAM SMALL Age: 86 years Sex: Male : 1935 Associated Diagnoses: None Author: Alfonzo Durham M.D. Basic Information Vital signs: Vital Signs 09/22/2022 18:15 [employer] SALES CONSULTANT Heart Rate Monitored 99 bpm Respiratory Rate 26 br/min H SaO2 Pulse Rate 100 bpm Systolic Blood Pressure 149 mm Hg H Diastolic Blood Pressure 103 mm Hg H* Mean Arterial Pressure 118.33 mm Hg 09/22/2022 18:00 OUTBOUND SALES CONSULTANT Respiratory Rate 26 br/min H SaO2 Pulse Rate 77 bpm Systolic Blood Pressure 141 mm Hg H Diastolic Blood Pressure 97 mm Hg H Mean Arterial Pressure 111.67 mm Hg 09/22/2022 17:43 OUTBOUND SALES CONSULTANT Temperature Temporal Artery 36.2 DegC Peripheral Pulse Rate 106 bpm H Respiratory Rate 18 br/min Systolic Blood Pressure 137 mm Hg Diastolic Blood Pressure 89 mm Hg , Measurements 09/22/2022 17:43 OUTBOUND SALES CONSULTANT Height 178 cm Height Source Stated Weight 96.2 kg Weight Source Actual Body Mass Index 30.36 kg/m2 , Oxygen saturation: Basic Oxygen Information 09/22/2022 18:15 OUTBOUND SALES CONSULTANT Oxygen Saturation 93 % 09/22/2022 17:43 OUTBOUND SALES CONSULTANT Oxygen Saturation 97 % . Time seen: Date & time 09/22/2022 18:20:00. History source: Patient. Arrival mode: Private vehicle. History limitation: None. Additional information:: Chief Complaint from Nursing Triage Note : Chief Complaint Description 09/22/2022 17:43 OUTBOUND SALES CONSULTANT Chief Complaint Description SOB for 2 days. Productive cough with clear to yellow sputum. Chest heaviness (Modified) . History of Present Illness 86-year-old white male by private car with shortness of breath. The patient has noted shortness of breath and cough productive of clear to yellow sputum for about 2 days. His chest feels somewhat heavy and tight. He has not had a fever. He has noted wheezing. His states that he was lying down and trying to nap today and he sounded like he was gasping. He is not having sharp chest pain. No abdominal pain, nausea vomiting, diarrhea, dysuria or hematuria or lower extremity swelling or pain. He has been vaccinated against COVID and influenza. His pulmonary doctor is Dr. Montiel; he has COPD but is not on home oxygen.. Review of Systems Constitutional symptoms: no fever Skin symptoms: no rash Eye symptoms: no recent vision problems ENMT symptoms: no sore throat Respiratory symptoms: Shortness of breath, cough, wheezing. Cardiovascular symptoms: no chest pain Gastrointestinal symptoms: no abdominal pain no nausea, no vomiting, no diarrhea. Genitourinary symptoms: no dysuria no hematuria. Musculoskeletal symptoms: no back pain no Muscle pain. Neurologic symptoms: no headache Psychiatric symptoms: no anxiety no depression. Endocrine symptoms: no polyuria no polydipsia. Hematologic/Lymphatic symptoms: bleeding tendency negative Allergy/immunologic symptoms: no seasonal allergies Health Status Allergies: Allergic Reactions (Selected) NKA. Past Medical/ Family/ Social History Medical history Problem List from Nurse's Notes All Problems Asthma / SNOMED CT 502953173 / Confirmed ASHD (arteriosclerotic heart disease) I25.10 / ICD-10-CM I25.10 / Confirmed COPD (chronic obstructive pulmonary disease) / SNOMED CT 46826027 / Confirmed Acute exacerbation of chronic obstructive airways disease J44.1 / ICD-10-CM J44.1 / Confirmed COPD (chronic obstructive pulmonary disease) J44.9 / ICD-10-CM J44.9 / Confirmed Coronary arteriosclerosis in [place] artery / SNOMED CT 2888321953 / Confirmed HTN (hypertension) I10 / ICD-10-CM I10 / Confirmed Acid reflux disease / SNOMED CT 840715157 / Confirmed Gout / SNOMED CT 769041331 / Confirmed H/O: lung cancer / SNOMED CT 1030841516 / Confirmed High cholesterol / SNOMED CT 50753708 / Confirmed Hyperplasia of prostate / SNOMED CT 7729417502 / Confirmed High blood pressure / SNOMED CT 8586051758 / Confirmed Kidney stone / SNOMED CT 985556679 / Confirmed Cataract / SNOMED CT 1213467024 / Confirmed Lesion of lung / SNOMED CT 071181536 / Confirmed Nocturia / SNOMED CT 550102614 / Confirmed Bulging lumbar disc / SNOMED CT 283566153 / Confirmed Elevated cholesterol E78.00 / ICD-10-CM E78.00 / Confirmed Asthma J45.909 / ICD-10-CM J45.909 / Confirmed Urinary incontinence / SNOMED CT 5668998824 / Confirmed. Surgical history: Procedure History from Nurses Notes Hip arthroplasty ([id number]). Comments: 05/01/2010 05:41 CDT - Rose Mary Valdovinos RN left Prostate implantation ([id number]). lumbar back surg 04/2010. CABG x 5 - Coronary artery bypass grafts x 5 ([id number]). Comments: 10/14/2017 10:59 [employer]BOUND SALES CONSULTANT - Olga Rosenbaum RN 2015 CE - Cataract extraction ([id number]).. Family history: Family History from Nurse's Notes Stroke Mother () Arthritis Sister Breast cancer Mother () . Social history: Social History from Nurses Notes Alcohol Details: Current every day alcohol user, Liquor, Daily, 1 drink Substance Abuse Details: Never drug user Tobacco Details: Former smoker, Smokeless Tobacco use: Never. N/A Cessation Counseling. Cigarettes, Stoppedage 55 Years. . Physical Examination General: Alert. no acute distress. Skin: Warm. dry. pink. Head: Normocephalic. atraumatic. Neck: Supple Eye: Pupils are equal, round and reactive to light. extraocular movements are intact. Ears, nose, mouth and throat: Oral mucosa moist Cardiovascular: no Regular rate and rhythm Irregularly irregular. Respiratory: Scattered rhonchi. End expiratory wheezing. Chest wall: No tenderness Back: Nontender. Normal range of motion. Musculoskeletal: Normal ROM. 2+ pedal edema bilaterally. Gastrointestinal: Soft. Nontender. Neurological: Alert and oriented to person, place, time, and situation. No focal neurological deficit observed. Lymphatics: No lymphadenopathy Psychiatric: Cooperative Medical Decision Making Differential Diagnosis: Pneumonia, bronchitis, congestive heart failure, chronic obstructive pulmonary disease, pulmonary edema, pleural effusion, Atrial fibrillation, COVID, influenza, viral syndrome. Rationale The patient will undergo septic work-up. Would give steroids and albuterol as well given his wheezing. He will certainly be admitted and pulmonary consultation will be obtained.. Electrocardiogram: EP Interp, Atrial fibrillation with RVR 107, right bundle branch block, left anterior fascicular block. Results review: Lab results : Lab View 09/22/2022 18:36 OUTBOUND SALES CONSULTANT WBC 7.0 K/uL Nucleated RBCs 0 % RBC 4.96 M/uL Hemoglobin 14.9 g/dL Hematocrit 45.7 % MCV 92.1 fL MCH 30.0 pg MCHC 32.6 g/dL RDW 13.3 % MPV 11.0 fL Platelet 169 K/uL Differential Type Automated Immature Gran % 0.3 % Neutro % 69 % Lymph % 18 % [place] % 9 % Eos % 4 % Baso % 1 % Neutro # 4.8 K/uL Lymph # 1.2 K/uL [place] # 0.6 K/uL Eos # 0.2 K/uL Baso # 0.0 K/uL Protime (PT) 14.3 sec INR 1.1 PTT 29.2 sec Sodium 143 mmol/L Potassium 4.3 mmol/L Chloride 110 mmol/L H CO2 24 mmol/L Anion Gap 9 mmol/L BUN 28 mg/dL H Creatinine 1.1 mg/dL Glucose 125 mg/dL H Calcium 9.5 mg/dL Protein, Total 6.6 g/dL Albumin 3.7 g/dL Alk Phos 118 U/L Bilirubin, Total 0.5 mg/dL AST 32 U/L ALT 18 U/L eGFR(4vMDRD) >60 mL/min/1.73m2 eCrCl(C-Gault) 0.7 mL/min/kg Lactic Acid 1.1 mmol/L Magnesium 1.8 mg/dL Troponin I 0.02 ng/mL NT-proBNP 7,350 pg/mL Blood Culture NEG (In Progress) Blood Culture NEG (In Progress) Influenza A RNA Not Detected Influenza B RNA Not Detected RSV RNA Not Detected SARS-CoV-2 (COVID-19) RNA Not Detected SARS-CoV-2 First Test Unknown SARS-CoV-2 Healthcare Employee No SARS-CoV-2 CDC Symptomatic Yes SARS-CoV-2 Symptom Onset 09/20/2022 SARS-CoV-2 Hospitalized No SARS-CoV-2 ICU No SARS-CoV-2 Congregate Care No SARS-CoV-2 Not Coronavirus HKU1 RNA Not Detected Coronavirus NL63 RNA Not Detected Coronavirus 229E RNA Not Detected Coronavirus OC43 RNA Not Detected Adenovirus DNA Not Detected Human Metapneumovirus RNA Not Detected Human Rhinovirus/Enterovirus RNA Not Detected Parainfluenza 1 RNA Not Detected Parainfluenza 2 RNA Not Detected Parainfluenza 3 RNA Not Detected Parainfluenza 4 RNA Not Detected Bordetella parapertussis DNA Not Detected Bordetella pertussis DNA Not Detected Chlamydia pneumoniae DNA Not Detected Mycoplasma pneumoniae DNA Not Detected , Interpretation. Chest X-Ray: * Final Report * Reason For Exam Sepsis CHEST SINGLE VIEW EXAMINATION: Chest radiograph, single view HISTORY: Sepsis, lung cancer FINDINGS: Comparison to chest CT on 01/24/2022, and chest radiograph on 02/24/2019. The right anteromedial upper lobe density is not well demonstrated on radiographs. Right mid lung opacity with central lucency on prior chest radiograph is less conspicuous on the current study. No new pulmonary infiltrate or pulmonary nodule. No pleural effusion or pneumothorax. Left basilar atelectasis versus scarring is unchanged. 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 The cardiac silhouette is enlarged. There is atherosclerosis of the thoracic aorta. There are bilateral full-thickness rotator cuff tears with glenohumeral joint osteoarthritis. IMPRESSION: 1. Previously noted right upper and mid lung opacities are less conspicuous on the current study. 2. Cardiac silhouette enlargement. . Signature Line Dictating Physician: Natty Car MD Releasing Physician: Natty Car MD Signature Electronically Authorized Authorized Date/Time: 22-SEP-2022 07:34 pm . Impression and Plan Diagnosis COPD exacerbation : [id number] J44.1, Discharge, Medical Atrial fibrillation : [id number] I48.91, Discharge, Medical Discharge plan Condition: Stable, Guarded. Admit: Time 09/22/2022 20:53:00, To Inpatient Telemetry Unit. Counseled: Patient, Family, Regarding diagnostic results, Regarding treatment plan. Notes: The patient has no significant infiltrate and labs look reasonably normal. He does have someelevation of proBNP but does not really clinically appear volume overloaded. I suspect that this marcos COPD exacerbation particularly given his wheezing. I have covered him with albuterol and Solu-Medrol which I will continue for the floor and I will add ceftriaxone and Zithromax for at least 1 doseto cover a potential radiographically occult pneumonia. 22 Plex is negative. I have paged Dr. Thomas for Montiel and I will contact Dr. Lewis to find out who he would like for cardiology. Katharina is aware and accepts on behalf of the hospitalist. Dr Erickson's group aware--Dr Mujica called back. He thinks the patient is not in afib but is actually sinus with a lot of PACs. They will consult.. [Electronically Signed on 09/22/2022 09:43 PM OUTBOUND SALES CONSULTANT] Alfonzo Durham M.D. EKG study * Event Display: EKG Report * Event Display: EKG-ED * Event Display: EKG-ED Authored Date: Vent Rate: 107 bpm RR Interval: 559 msec MN Interval: 0 msec QRS Duration: 150 msec QT Interval: 382 msec QTC Interval: 445 msec P-R-T [place]: 0 - -54 - 48 degrees sinus tachycardia with frequent PAC; sand rare PVCs INDETERMINATE AXIS RIGHT BUNDLE BRANCH BLOCK [120+ ms QRS DURATION, UPRIGHT V1, 40+ ms S IN I/aVL/V4/V5/V6] LEFT ANTERIOR FASCICULAR BLOCK [QRS AXIS <= -45, QR IN I, RS IN II] ABNORMAL ECG Compared to prior on 27-Feb-2015 05:21:21 PM: right bundle branch block is new, PACs and PVCs are new. Electronically Signed By: Kenny Romero MD [facility] XR Chest Single view * Natty Car MD: VERIFY, VERIFY, PERFORM Event Display: Interpretation: Authored Date: EXAMINATION: Chest radiograph, single view HISTORY: Sepsis, lung cancer FINDINGS: Comparison to chest CT on 01/24/2022, and chest radiograph on 02/24/2019. The right anteromedial upper lobe density is not well demonstrated on radiographs. Right mid lung opacity with central lucency on prior chest radiograph is less conspicuous on the current study. No new pulmonary infiltrate or pulmonary nodule. No pleural effusion or pneumothorax. Left basilar atelectasis versus scarring is unchanged. 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 The cardiac silhouette is enlarged. There is atherosclerosis of the thoracic aorta. There are bilateral full-thickness rotator cuff tears with glenohumeral joint osteoarthritis. IMPRESSION: 1. Previously noted right upper and mid lung opacities are less conspicuous on the current study. 2. Cardiac silhouette enlargement. . Dictating Physician: Natty Car MD Releasing Physician: Natty Car MD Signature Electronically Authorized Authorized Date/Time: 22-SEP-2022 07:34 pm Patient Care team information Care Team Personnel Name: Abena Saldaña RN Lung Screening Coordinator Position: Population Health Coordinator Member Role: Population Health Coordinator Name: Mindi Ma [employer] Professional Position: Population Health Coordinator Member Role: Population Health Coordinator Name: Garland Haywood MD Position: Physician - Electrophysiology Member Role: Specialist Physician Address: Address: [address] [place] [address] [place] [id number] [place] Name: Luis Fernando Vo M.D. Position: Physician - Cardiology Member Role: Primary Care Physician Address: Address: [address] [facility] [address] [place], [place] [address]- Care Team Related Persons Name: BRANDY SMALL Address: home [address] [place] [phone]
--- OUTSIDE RECORDS SUMMARY | 2024-11-05 00:08 | XMS_ITS | Continuity of Care Document ---
Author Organization [facility] Address [address] [place] [id number] Care Team Providers Care Geotechnical Engineer Name Role Phone Luis Fernando Vo Primary Care Physician Jeremie Mujica Unavailable Garland Haywood Unavailable [phone] Encounter [facility] Financial Number [id number] Date(s): 01/30/23 - 01/30/[address] [id number] Discharge Disposition: Home or Self Care Attending Physician: Susan Montiel MD Admitting Physician: Susan Montiel MD Referring Physician: Susan Montiel MD Allergies, Adverse Reactions, Alerts No Known Allergies Assessment and Plan Future Appointments Appointment Date:02/11/2023 09:30:00 AM Scheduled Provider: Location:[facility] Cardiology Appointment Type:Echocardiogram Complete Study Appointment Date:02/19/2023 01:30:00 PM Scheduled Provider:Gerhard Sultana MD Location:Rad Onc Appointment Type:RO Follow Up Appointment Date:03/11/2023 08:30:00 AM Scheduled Provider:Garland Haywood MD Location:[facility] Electo Spec Appointment Type:Virtual Telephone Visit Appointment Date:07/31/2023 10:15:00 AM Scheduled Provider:Susan Montiel MD Location:[facility] Appointment Type:[facility] Established Patient Immunizations Given and Recorded Vaccine Date Status Refusal Reason SARS-CoV-2 (COVID-19) mRNA BNT-162b2 vax 08/03/22 Recorded influenza virus vaccine, inactivated 08/03/22 Rgaham rded influenza virus vaccine, inactivated 08/03/22 Graham rded influenza virus vaccine, inactivated 10/26/18 Graham rded influenza virus vaccine, H1N1, inactivat 07/15/17 Recorded pneumococcal 13-valent vaccine 10/14/14 Recorded Medications Advair Diskus 250 mcg-50 mcg inhalation powder 1 puff(s), Inhalation, bid, 180 each, 10, 90, Route to Pharmacy Electronically, [facility], [id number], 175, cm, 11/13/2021 1717, Height, 86.3, kg, 11/13/2021 1717, Weight Start Date: 01/22/22 Status: Ordered albuterol 90 mcg/inh inhaler 2 puff(s), Inhalation, [id number], PRN, 1 each, Inhaler, 3, 3, shortness of breath, Slow Breath inhaleslowly and deeply , Route to Pharmacy Electronically, [facility] [address] [facility], [id number], 175, cm, 07/25/2022 1145, Height, 97.... Start Date: 07/25/22 Status: Ordered allopurinol 100 mg oral tablet 1 tablet(s), Oral, daily, 90 tablet(s), 3, FOR GOUT PREVENTION., Route to Pharmacy Electronically, [facility], [id number], 175, cm, 07/25/2022 1145, Height, 97.5, kg, 07/25/2022 1145, Weight Start Date: 08/06/22 Status: Ordered aspirin 81 mg oral enteric coated tablet 81 mg, 1 tablet(s), Oral, daily, Tab EC, 0 Start Date: 11/08/17 Status: Ordered Entresto 49 mg-51 mg oral tablet 1 tablet(s), Oral, bid, 180 tablet(s), Tablet(s), 3, 3, Route to Pharmacy Electronically, [facility] [address], [id number], 178, cm, 09/22/2022 2335, Height, 93.7, kg, 09/26/2022 0507, Weight Start Date: 10/18/22 Stop Date: 10/13/23 Status: Ordered fexofenadine 180 mg oral tablet 180 mg, 1 tablet(s), Oral, daily, 30 tablet(s), Tablet(s), 0 Start Date: 11/08/17 Status: Ordered Flomax 0.4 mg oral capsule 0.4 mg, 1 capsule(s), Oral, pm after dinner, 90 capsule(s), Capsule(s), 3, 3, Route [facility] Pharmacy Electronically, [facility], [id number], 172.72, cm, 11/06/2022 1120,Height, 89.09, kg, 11/06/2022 1120, Weight Start Date: 11/09/22 Stop Date: 11/04/23 Status: Ordered Keflex 250 mg oral capsule 250 mg, 1 capsule(s), Oral, qhs, 0 Start Date: 09/26/22 Status: Ordered Lasix 40 mg oral tablet 40 mg, 1 tablet(s), Oral, daily, 90 tablet(s), Tablet(s), 3, 3, Route [facility] Pharmacy Electronically, [facility], [id number], 178, cm, 09/22/2022 2335, Height, 93.7, k g, 09/26/2022 0507, Weight Start Date: 10/18/22 Stop Date: 10/13/23 Status: Ordered Metoprolol Tartrate 50 mg oral tablet 50 mg, 1 tablet(s), Oral, bid, 180 tablet(s), Tablet(s), 3, 3, Route to Pharmacy Electronically, [facility], [id number], 178, cm, 09/22/2022 2335, Height, 93.7, kg, 09/26/2022 0507, Weight Start Date: 10/18/22 Stop Date: 10/13/23 Status: Ordered Multivitamin oral tablet 1 tablet(s), Oral, daily, 30 tablet(s), 0 Start Date: 11/12/12 Status: Ordered omeprazole 20 mg oral delayed release capsule 1 capsule(s), Oral, daily, 90 capsule(s), 3, Route to Pharmacy Electronically, [facility], [id number], 178, cm, 09/22/2022 2335, Height, 93.7, kg, 09/26/2022 0507, Weight Start Date: 10/01/22 Status: Ordered Potassium Chloride (Eqv-K-Tab) 10 mEq oral tablet, extended release 10 mEq, 1 tablet(s), Oral, bid, 180 tablet(s), 3, 3, Route to Pharmacy Electronically, [facility] [address] [facility], [id number], 172.72, cm, 11/06/2022 1120, Height, 89.09, kg, 11/06/2022 1120, Weight Start Date: 11/09/22 Stop Date: 11/04/23 Status: Ordered prochlorperazine 10 mg oral tablet 10 mg, 1 tablet(s), Oral, [id number], PRN, 30 each, Tablet(s), 1, 1, nausea, Route to Pharmacy Electronically, [facility], [id number], 172.72, cm, 11/06/2022 1120, Height, 89.09, kg, 11/06/2022 1120, Weight Start Date: 11/06/22 Stop Date: 01/05/23 Status: Ordered rosuvastatin 20 mg oral tablet 1 tablet(s), Oral, HS, 90 tablet(s), 3, Route to Pharmacy Electronically, [facility], [id number], 175.26, cm, 04/26/2022 0917, Height, 97.7, kg, [...] disease) J44.9 Confirmed Active Coronary arteriosclerosis in [place] artery Confirmed Active HTN (hypertension) I10 Confirmed [...] 04/2010 C ompleted Prostate implantation Com pleted 15570 2left Results Radiology Reports * Exam Date Time Procedure Performing Provider Status 01/30/23 1:[address] CHEST W/O CONTRAST Shannan Patel collections and archives director; Auth (Verified) Notes: (CT CHEST W/O CONTRAST) Reason For Exam: Ground glass nodule, history of lung cancer, 3 month interval scan follow up CT CHEST W/O CONTRAST CT CHEST WITHOUT INTRAVENOUS CONTRAST. HISTORY: Malignant neoplasia of the lung. Follow-up surveillance. TECHNIQUE: Contiguous axial CT images of the chest without intravenous contrast per referring physician request. Radiation exposure based on dose length product (DLP) is 328 mGy-cm. Dose lowering CT technique was utilized. COMPARISON: Chest CT angiogram of 09/23/2022. FINDINGS: Cardiac diameter has decreased and is now normal. There are changes of aortocoronary bypass grafting and marked coronary artery calcifications. No pericardial effusion. There is no interval mediastinal or hilar lymph node enlargement. There is a stable 3 x 2 cm triangular focal density in the anteromedial right upper lobe (series 3, image 53). Partly traversing bronchi are noted. This likely represents chronic focal infective change or atelectasis, though underlying neoplasia is not excluded. Bilateral pleural effusions have resolved. There is a stable 4 mm nodule in the inferior right upper lobe at the carinal level (series 3, image 45). A right mediobasal nodule on a prior CT scan is no longer visualized. No new confluent infiltrate is identified. Upper abdominal images are remarkable for a moderate size hiatus hernia, stable left adrenal gland nodular hypertrophy and exophytic right renal cysts. IMPRESSION: 1. Stable anteromedial right upper lobe density. 2. Unchanged tiny right lower lobe nodule. 3. Resolved bilateral pleural effusions. . Dictating Physician: Vijay Ibarra M.D. Releasing Physician: Vijay Ibarra M.D. Signature Electronically Authorized Authorized Date/Time: 30-JAN-2023 02:20 pm Social History Social History Type Response Alcohol [...] Date:09/28/22 End Date: Status:Met Progression:Met Note * Event Display: Authorization to Treat Authored Date: * Event Display: Authorization to Treat Authored Date: * Tomy Hernandez Health Compliance Examiner: PERFORM Event Display: ROI_Correspondence Authored Date: [id number] * Event Display: ROI_Correspondence * Event Display: ROI_Correspondence * Event Display: ROI_Correspondence * Event Display: ROI_Correspondence Authored Date: * Event Display: ROI_Correspondence Authored Date: CT Chest WO contrast * Vijay Ibarra M.D.: VERIFY, VERIFY, PERFORM Event Display: Interpretation: Authored Date: CT CHEST WITHOUT INTRAVENOUS CONTRAST. HISTORY: Malignant neoplasia of the lung. Follow-up surveillance. TECHNIQUE: Contiguous axial CT images of the chest without intravenous contrast per referring physician request. Radiation exposure based on dose length product (DLP) is 328 mGy-cm. Dose lowering CT technique was utilized. COMPARISON: Chest CT angiogram of 09/23/2022. FINDINGS: Cardiac diameter has decreased and is now normal. There are changes of aortocoronary bypass grafting and marked coronary artery calcifications. No pericardial effusion. There is no interval mediastinal or hilar lymph node enlargement. There is a stable 3 x 2 cm triangular focal density in the anteromedial right upper lobe (series 3, image 53). Partly traversing bronchi are noted. This likely represents chronic focal infective change or atelectasis, though underlying neoplasia is not excluded. Bilateral pleural effusions have resolved. There is a stable 4 mm nodule in the inferior right upper lobe at the carinal level (series 3, image 45). A right mediobasal nodule on a prior CT scan is no longer visualized. No new confluent infiltrate is identified. Upper abdominal images are remarkable for a moderate size hiatus hernia, stable left adrenal gland nodular hypertrophy and exophytic right renal cysts. IMPRESSION: 1. Stable anteromedial right upper lobe density. 2. Unchanged tiny right lower lobe nodule. 3. Resolved bilateral pleural effusions. . Dictating Physician: Vijay Ibarra M.D. Releasing Physician: Vijay Ibarra M.D. Signature Electronically Authorized Authorized Date/Time: 30-JAN-2023 02:20 pm Patient Care team information Care Team Personnel Name: Abena Saldaña RN Lung Screening Coordinator Position: Population Health Coordinator Member Role: Population Health Coordinator Name: Jeremie Mujica M.D. Position: Physician - Cardiology Member Role: Outside Plant Supervisor Heart Failure Address: Address: [address] [place], [place] [id number] [place] Name: Mindi Ma Shift Commander Position: Population Health Coordinator Member Role: Population Health Coordinator Name: Garland Haywood MD Position: Physician - Electrophysiology Member Role: Specialist Physician Address: Address: [address] [place] [address] [place] Name: Luis Fernando Vo M.D. Position: Physician - Cardiology Member Role: Primary Care Physician Address: Address: [address] [place], [place] [address]- Name: Laila Burch RN Outpatient Drosser Position: OP Drosser Welder Operator Member Role: Drosser Name: Susan Montiel MD Position: Physician - Pulmonology Med Service: Snowmaker Geotechnical Engineer Role: Referring Physician Address: Address: [address] [place] [address] [address] [place] [address] Care Team Related Persons Name: BRANDY SMALL Address: home [address] [facility], [id number]
--- OUTSIDE RECORDS SUMMARY | 2024-11-05 00:08 | XMS_ITS | Continuity of Care Document ---
Author Organization [facility] Address [address] [place] [id number] Care Team Providers Care Managed Security Sales Consultant Name Role Phone Luis Fernando Vo Primary Care Physician Garland Haywood [phone] Encounter [facility] Financial Number [id number] Date(s): 10/19/22 - 10/19/[address] [id number] Discharge Disposition: Home or Self Care Attending Physician: Susan Montiel MD Referring Physician: Susan Montiel MD Allergies, Adverse Reactions, Alerts No Known Allergies Assessment and Plan Future Appointments Appointment Date:10/25/2022 09:00:00 AM Scheduled Provider:Luis Fernando Vo M.D. Location:[facility] Appointment Type:CPA EPE Established Patient Extended Appointment Date:11/06/2022 11:00:00 AM Scheduled Provider:Luis Fernando Vo M.D. Location:[facility] Appointment Type:CPA EPE Established Patient Extended Appointment Date:12/10/2022 11:15:00 AM Scheduled Provider:Garland Haywood MD Location:[facility] Appointment Type:SLES EP Established Patient Appointment Date:01/08/2023 11:15:00 AM Scheduled Provider:Susan Montiel MD Location:[facility] Appointment Type:CPA EP Established Patient Appointment Date:01/17/2023 11:15:00 AM Scheduled Provider: Location:[facility] CT Appointment Type:CT CHEST Appointment Date:01/17/2023 11:45:00 AM Scheduled Provider:Susan Montiel MD Location:[facility] Appointment Type:CPA EP Established Patient Immunizations [...] each, 10, 90, Route to Pharmacy Electronically, [facility], [id number], 175, cm, 11/13/2021 1717, Height, 86.3, kg, 11/13/2021 1717, Weight Start Date: 01/22/22 Status: Ordered albuterol 90 mcg/inh inhaler 2 puff(s), Inhalation, [id number], PRN, 1 each, Inhaler, 3, 3, shortness of breath, Slow Breath inhaleslowly and deeply , Route [facility] Pharm[facility] Electron[facility], [facility], [id number], 175, cm, 07/25/2022 1145, Height, 97.... Start Date: 07/25/22 Status: Ordered allopurinol 100 mg oral tablet 1 tablet(s), Oral, daily, 90 tablet(s), 3, FOR GOUT PREVENTION., Route to Pharmacy Electronically, [facility], [id number], 175, cm, 07/25/2022 1145, Height, 97.5, kg, 07/25/2022 1145, Weight Start Date: 08/06/22 Status: Ordered aspirin 81 mg oral enteric coated tablet 81 mg, 1 tablet(s), Oral, daily, Tab EC, 0 Start Date: 11/08/17 Status: Ordered Entresto 49 mg-51 mg oral tablet 1 tablet(s), Oral, bid, 180 tablet(s), Tablet(s), 3, 3, Route to Pharmacy Electronically, [facility], [id number], 178, cm, 09/22/2022 2335, Height, 93.7, kg, [...] 3, 3, Route to Pharmacy Electronically, [facility], [id number], 178, cm, 09/22/2022 2335, Height, 93.7, k g, 09/26/2022 0507, Weight Start Date: 10/18/22 Stop Date: 10/13/23 Status: Ordered Metoprolol Tartrate 50 mg oral tablet 50 mg, 1 tablet(s), Oral, bid, 180 tablet(s), Tablet(s), 3, 3, Route to Pharmacy Electronically, [facility], [id number], 178, cm, 09/22/2022 2335, Height, 93.7, kg, 09/26/2022 0507, Weight Start Date: 10/18/22 Stop Date: 10/13/23 Status: Ordered Multivitamin oral tablet 1 tablet(s), Oral, daily, 30 tablet(s), 0 Start Date: 11/12/12 Status: Ordered omeprazole 20 mg oral delayed release capsule 1 capsule(s), Oral, daily, 90 capsule(s), 3, Route to Pharmacy Electronically, [facility], [id number], 178, cm, 09/22/2022 2335, Height, 93.7, kg, 09/26/2022 0507, Weight Start Date: 10/01/22 Status: Ordered Potassium Chloride (Eqv-K-Tab) 10 mEq oral tablet, extended release 20 mEq, 2 tablet(s), Oral, daily, 60 tablet(s), 0, 0, Route to Pharmacy Electronically, [facility], [id number], 178, cm, 09/22/2022 2335, Height, 93.7,kg, 09/26/2022 0507, Weight Start Date: 09/26/22 Status: Ordered predniSONE 10 mg oral tablet Taper from 30 mg q3day by 10 mg till off, Oral, daily, 18 tablet(s), 0, 0, Route to Pharmacy Electronically, [facility], [id number], 178, cm, 09/22/2022 2335, Height, 93.7, kg, 09/26/2022 0507, Weight Start Date: 09/26/22 Stop Date: 10/05/22 Status: Ordered predniSONE 20 mg oral tablet 20 mg, 1 tablet(s), Oral, daily, 5 day(s), 5 tablet(s), 0, 0, 10/24/2022 1104, Route to Pharmacy Electronically, [facility] [address] [facility], [id number], 172.72, cm, 10/19/2022 1036, Height, 88.18, kg, 10/19/2022 1036, Weight Start Date: 10/19/22 Stop Date: 10/24/22 Status: Ordered prochlorperazine 10 mg oral tablet 10 mg, 1 tablet(s), Oral, [id number], PRN, 30 each, Tablet(s), 1, 1, nausea, Route to Pharmacy Electronically, [facility] [address] [facility], [id number], 175, cm, 08/07/2022 1308, Height, 97, kg, 08/07/2022 1308, Weight Start Date: 08/16/22 Stop Date: 10/15/22 Status: Ordered rosuvastatin 20 mg oral tablet 1 tablet(s), Oral, HS, 90 tablet(s), 3, Route to Pharmacy Electronically, [facility], [id number], 175.26, cm, 04/26/2022 0917, Height, 97.7, kg, 04/26/2022 0917, Weight Start Date: 05/29/22 Status: Ordered Tylenol 8 HR Arthritis Pain 650 mg oral tablet, extended release 650 mg, 1 tablet(s), Oral, [id number], PRN, 0, pain, mild Start Date: 09/25/22 Status: Ordered Problem List Condition Confirmation Course Effective Dates Status H ealth Status Informant Asthma Confirmed Active Asthma-COPD overlap syndrome Confirmed Active ASHD (arteriosclerotic heart disease) I25.10 Confirmed Active COPD (chronic obstructive pulmonary disease) Confirmed Active Acute exacerbation of chronic obstructive airways disease J44.1 Confirmed Active COPD (chronic obstructive pulmonary disease) J44.9 Confirmed Active Coronary arteriosclerosis in [place] artery Confirmed Active HTN (hypertension) I10 Confirmed [...] Diagnosis Diagnosis Type Effective Dates Health Status Cl inical Service Informant Cough 10/19/22 Non-Specified Asthma-COPD overlap syndrome 10/19/22 Non-Specified Heart failure 10/19/22 Non-Specified Procedures Procedure Date Related Diagnosis Body Site Status 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 Completed CE - Cataract extraction Completed Hip arthroplasty 2 Comple chiara lumbar back surg 04/2010 C ompleted Prostate implantation Com pleted [id number] 2left Results Radiology Reports * Exam Date Time Procedure Performing Provider Status 10/19/22 11:40 AM CHEST 2 VIEWS Mindi Gardner BOARD HAMMER OPERATOR ; Auth (Verified) Notes: (CHEST 2 VIEWS) Reason For Exam: COUGH, COPD & Heart Failure CHEST 2 VIEWS EXAM: CHEST X-RAY - PA AND LATERAL HISTORY: COUGH, COPD COMPARISON: 09/22/2022 FINDINGS: Heart size borderline enlarged status post CABG. Perihilar infiltrates on prior examination have resolved. Lungs are now essentially clear. IMPRESSION: Clear lungs. . . Dictating Physician: Sammy Redd MD Releasing Physician: Sammy Redd MD Signature Electronically Authorized Authorized Date/Time: 19-OCT-2022 12:32 pm Social History Social History Type Response Alcohol Current every day al cohol user, Liquor, Daily, 1 drink Substance Abuse Never drug user Smoking Status Former smoker;Never; Tobacco Cessation Counseling Requested N/A; Type: Cigarettes; Stopped at age: 55; entered on: 07/25/22 Sex Goals Prevent Readmission Through Ongoing Care Managem ent Start Date:09/28/22 End Date: Status:Met Progression:Not Met Exacerbations and Complications of COPD Avoided Start Date:09/28/22 End Date: Status:Met Progression:Not Met Follows Action Plan Appropri ately, Worse or Warning Symptoms Start Date:09/28/22 End Date: Status:Met Progression:Not Met Note * Event Display: Authorization to Treat Authored Date: * Event Display: Authorization to Treat Authored Date: * Tomy Hernandez Health Community Organizer: PERFORM Event Display: ROI_Correspondence Authored Date: * Event Display: ROI_Correspondence * Event Display: ROI_Correspondence * Event Display: ROI_Correspondence * Event Display: ROI_Correspondence Authored Date: * Event Display: ROI_Correspondence Authored Date: XR Chest 2 Views * Sammy Redd MD: VERIFY, VERIFY, PERFORM Event Display: Interpretation: Authored Date: EXAM: CHEST X-RAY - PA AND LATERAL HISTORY: COUGH, COPD COMPARISON: 09/22/2022 FINDINGS: Heart size borderline enlarged status post CABG. Perihilar infiltrates on prior examination have resolved. Lungs are now essentially clear. IMPRESSION: Clear lungs. . . Dictating Physician: Sammy Redd MD Releasing Physician: Sammy Redd MD Signature Electronically Authorized Authorized Date/Time: 19-OCT-2022 12:32 pm Patient Care team information Care Team Personnel Name: Abena Saldaña RN Lung Screening Coordinator Position: Population Health Coordinator Member Role: Population Health Coordinator Name: Mindi Ma Utility Arborist Position: Population Health Coordinator Member Role: Population Health Coordinator Name: Garland Haywood MD Position: Physician - Electrophysiology Member Role: Specialist Physician Address: Address: [address] [place] [address] [address] Name: Luis Fernando Vo M.D. Position: Physician - Cardiology Member Role: Primary Care Physician Address: Address: [address] [place] [address]- Name: Laila Burch RN Outpatient Tanyard Worker Position: OP Tanyard Worker [employer] Biology Teacher Member Role: Tanyard Worker Care Team Related Persons Name: BRANDY SMALL Address: home [address] [facility] [facility] [phone]
--- OUTSIDE RECORDS SUMMARY | 2024-11-05 00:08 | XMS_ITS | Continuity of Care Document ---
Author Organization [facility] Address [address] [id number] Care Team Providers Care Manager Production Name Role Phone Baldev Mccray Primary Care Physician Encounter [facility] Financial Number [id number] Date(s): 08/10/24 - 08/10/24 [facility] [address] [address] Encounter Diagnosis Heart failure with mid-range ejection fraction(Discharge Diagnosis) - 08/10/24 Ischemic cardiomyopathy(Discharge Diagnosis) - 08/10/24 Coronary arteriosclerosis in [place] artery(Discharge Diagnosis) - 08/10/24 HTN (hypertension) I10(Discharge Diagnosis) - 08/10/24 Discharge Disposition: Home or Self Care Attending Physician: Juan Gu MD Referring Physician: Juan Gu MD Allergies, Adverse Reactions, Alerts No Known Allergies Assessment and Plan Future Appointments Appointment Date:09/28/2024 11:15:00 AM Scheduled Provider:Susan Montiel MD Location:[facility] [address] Appointment Type:CPA EP Established Patient Appointment Date:01/06/2025 11:15:00 AM Scheduled Provider: Location:[facility] Appointment Type:CT CHEST Appointment Date:01/11/2025 01:00:00 PM Scheduled Provider:Baldev Mccray MD Location:[facility] [address] Appointment Type:[facility] Complete Physical Exam Appointment Date:02/15/2025 12:30:00 PM Scheduled Provider:Juan Gu MD Location:[facility] Appointment Type:[facility] Follow Up Immunizations Given and Recorded Vaccine [...] albuterol 90 mcg/inh inhaler 2 puff(s), Inhalation, u0xseab, PRN, 1 each, Inhaler, 3, 3, shortness of breath, Slow Breath inhaleslowly and deeply , Route to Pharmacy Electronically, [place] [id number] [place] [facility], [id number], 172.72, cm, 07/31/23 10:20:00 CDT, Height, 86.81, kg, 07/31/23 10:20:00 CDT, Weight Start Date: 11/05/23 Status: Ordered allopurinol 100 mg oral tablet 1 tablet(s), Oral, daily, 90 tablet(s), 1, FOR GOUT PREVENTION., Route to Pharmacy Electronically, [facility] [address], [id number], 177, cm, 06/23/24 10:12:00 CDT, Height, 90.9,kg, [...] the prescribing physician., Route to Pharmacy Electronically, [place] [id number] [place] [facility], [id number], 177, cm, 02/03/24 11:23:00 CDT, Height, 91.81, kg, 02/03/24 11:23:00 CDT, Weight Start Date: 02/03/24 Status: Ordered Entresto 49 mg-51 mg oral tablet 1 tablet(s), Oral, bid, 180 tablet(s), 0, Route to Pharmacy Electronically, [facility], [id number], 177, cm, 06/23/24 10:12:00 CDT, Height, 90.9, kg, 06/23/24 10:12:00 CDT, Weight Start Date: 07/07/24 Status: Ordered fexofenadine 180 mg oral tablet 180 mg, 1 tablet(s), Oral, daily, 30 tablet(s), Tablet(s), 0 Start Date: 11/08/17 Status: Ordered Flomax 0.4 mg oral capsule 0.4 mg, 1 capsule(s), Oral, pm after dinner, 90 capsule(s), Capsule(s), 3, 3, Route to Pharmacy Electronically, [facility] [address] [place] [facility], [id number], 172.72, cm, 11/06/2022 1120,Height, 89.09, kg, 11/06/2022 1120, Weight Start Date: 11/09/22 Stop Date: 11/04/23 Status: Ordered Keflex 250 mg oral capsule 250 mg, 1 capsule(s), Oral, qhs, 0 Start Date: 09/26/22 Status: Ordered Lasix 20 mg oral tablet 20 mg, 1 tablet(s), Oral, daily, 90 tablet(s), Tablet(s), 3, 3, Route to Pharmacy Electronically, [place] [place] [facility], [id number], 177, cm, 02/03/24 11:23:00 CDT, Height, 9 [...] capsule(s), 3, 3, Route to Pharmacy Electronically, [facility] [address] [place] [facility], [id number], 172.72, cm, 07/31/23 10:20:00 CDT, Height, 86.81, kg, 07/31/23 10:20:00 CDT, Weight Start Date: 10/30/23 Status: Ordered Potassium Chloride (Eqv-K-Tab) 10 mEq oral tablet, extended release 10 mEq, 1 tablet(s), Oral, bid, 180 tablet(s), 3, 3, Route to Pharmacy Electronically, [facility], [id number], 172.72, cm, 11/06/2022 1120, Height, 89.09, kg, 11/06/2022 1120, Weight Start Date: 11/09/22 Stop Date: 11/04/23 Status: Ordered prochlorperazine 10 mg oral tablet 10 mg, 1 tablet(s), Oral, daily, PRN, 30 tablet(s), Tablet(s), 1, 1, nausea, Route to Pharmacy Electronically, [facility] [address] [place] [facility], [id number], 177, cm, 01/03/24 13:03:00 TEAM PHYSICIAN, Height, 91.2, kg, 01/03/24 13:03:00 TEAM PHYSICIAN, Weight Start Date: 01/03/24 Stop Date: 03/03/24 Status: Ordered rosuvastatin 20 mg oral tablet 1 tablet(s), Oral, HS, 90 tablet(s), 0, Route to Pharmacy Electronically, [facility], [id number], 177, cm, 02/03/24 11:23:00 CDT, Height, 91.81, kg, 02/03/24 11:23:00 CDT, Weight Start Date: 06/19/24 Status: Ordered Tessalon Perles 100 mg oral capsule 100 mg, 1 capsule(s), Oral, tid, PRN, 30 capsule(s), Capsule(s), 0, 0, cough, Route to Pharmacy Electronically, [facility] [address] [place] [facility], [id number], 177.8, cm, 07/14/24 11:38:00 CDT, Height, 92.3, kg, 07/14/24 11:38:00 CDT, Weight Start Date: 07/20/24 Status: Ordered Trelegy Ellipta 100 mcg-62.5 mcg-25 mcg/inh inhalation powder 1 puff(s), Inhalation, daily, 1 each, Inhaler, 0, 0, Fast Breath inhale quickly and deeply, Route to Pharmacy Electronically, [facility] [address] [place] [facility], [id number], 177.8, cm, 07/14/24 11:38:00 CDT, Height, 92.3, [...] AND DEEPLY, 90, Route to Pharmacy Electronically, [facility] [address], [id number], 177.8, cm, 07/14/24 11:38:00 CDT, Height, 92.3, kg, 07/14/24 11:38:00 CDT, Weight Start Date: 07/21/24 Status: Ordered Problem List Condition Confirmation Course Effective Dates Status H ealth Status Informant Allergic rhinitis Confirmed Active Asthma-COPD overlap syndrome Confirmed Active ASHD (arteriosclerotic heart disease) I25.10 Confirmed Active BPH (benign prostatic hyperplasia) Confirmed Active Hearing loss of both ears Confirmed Active Coronary arteriosclerosis in [place] artery Confirmed Active HTN (hypertension) I10 Confirmed [...] 04/2010 C ompleted Prostate implantation Com pleted [id number] 2left Vital Signs Most recent to oldest [Reference Range]: 1 Peripheral Pulse Rate [60-100 bpm] 52 bp m *L* (08/10/24 12:28 PM) Blood Pressure [89-139/60-90 mm Hg] 140/ 70mm Hg *H* (08/10/24 12:28 PM) Height 177.80 cm (08/10/24 12:28 PM) Weight 91.81 kg (08/10/24 12:28 PM) Social History Social History Type Response Alcohol [...] Date: Status:Met Progression:Met Note * Tomy Hernandez [employer] Front Office Associate: PERFORM Event Display: ROI_Correspondence Authored Date: [id number] * Event Display: ROI_Correspondence * Event Display: ROI_Correspondence * Event Display: ROI_Correspondence Cardiology Outpatient Note * Juan Gu MD: PERFORM, MODIFY Event Display: Cardiology Office/Clinic Note Authored Date: Patient Information Name:BAM SMALL Address: [address] [place] [phone] Sex:Male Date of :1935 Emergency Contact:BRANDY SMALL Location:[facility] Registration Date and Time:08/10/2024 12:08 CDT Primary Care Physician: Baldev Mccray MD, Attending Physician: Juan Gu MD, History of Present Illness 1.?? CAD - s/p CABG 2015 2.?? Ischemic cardiomyopathy 3.?? Heart failure with midrange EF 4.?? Hypertension 5.?? Asthma/COPD 6.?? Lung CA-treated with radiation 7.?? Remote smoking ?? Bam Small is an 88-year-old history of coronary artery disease, ischemic cardiomyopathy, hypertension, asthma/COPD, lung cancer, and heart failure with midrange EF who presents to be seen in consultation for his heart failure. He is referred by his PCP Dr Mccray.?? He previously followed with Dr. Lewis prior to his passing. ?? Mr. Small presents today doing relatively well from a cardiovascular standpoint.?? His main concern??is??exertional dyspnea - becomes dyspneic walking aroudn his house.?? Has mild R ankle edema, muchbetter overall, none on left.?? No lightheadedness on standing,??had one spell of bad dizziness, res ponds to compazine.?No syncope.?? Has had no chest pain or pressure.?He has been dealing witha cough, occasionally productive of whitish sputum. ??Has talked with Dr. Montiel.?? Has been going on last couple months that he feels it is better now. ? Cardiovascular regimen Metoprolol succ??50 mg p.o. twice daily Sacubitril/valsartan 49/51 twice daily dapa 10 ?? Furosemide 20 mg p.o. daily Rosuvastatin 20 mg p.o. daily ?? Cardiovascular testing: ?? 07/31/2023-echo 1. The left ventricular ejection fraction is measured by Bailey's biplane method at 46 %. Global Longitudinal Strain (GLS) was found to be -14.2%. 2. There is global left ventricular hypkonesis. 3. Grade 1 Diastolic Dysfunction. 4. Moderately dilated right ventricle. Mild right ventricular hypokinesis. 5. Normal appearance of the tricuspid valve. There is mild tricuspid regurgitation. The estimated Peak RV Systolic Pressure is 25 mmHg. 6. Normal inferior vena cava appearance and respiratory collapse. 7. Compared with prior study of 02/11/2023, LV systolic function has increased. ?08/10/20240698-[id number]-tmttrm-normal systolic function, EF 55 to 60% Review of Systems Pertinent findings as per HPI, all other systems are negative.? Vitals and Measurements Vital Signs Height: 177.8 cm Height Inches Conversion: 70 Weight: 91.81 kg Weight in Pounds (kg conversion): 202 Body Surface Area: 2.1294 m2 Body Mass Index: 29.04 kg/m2 Systolic Blood Pressure:??140 mm Hg??High Diastolic Blood Pressure: 70 mm Hg Peripheral Pulse Rate:??52 bpm??Low Oxygen Saturation: 96 % Physical Exam Gen -??Well-appearing, no acute distress HEENT-anicteric, conjunctiva pink Neck-no bruits, JVP normal CV- RRR, no M, no S3 Resp - clear b/l abd - soft, NT/ND, HJR negative ext - WWP, no LE edema Neuro -alert, oriented, grossly nonfocal ?? Assessment/Plan 1.??Heart failure with mid-range ejection fraction ?? 2.??Ischemic cardiomyopathy Ordered: Echocardiogram Complete Study(Echo Cardiogram Complete Study), 08/10/24 11:30:00 CDT, cardiomyopathy, Ischemic cardiomyopathy, Not Required, Electronic, 08/10/24 11:30:00 CDT ?? 3.??Coronary arteriosclerosis in [place] artery ?? 4.??HTN (hypertension) I10 ?? In summary, Bam Small is an 88-year-old history of coronary artery disease, ischemic cardiomyopathy, hypertension, asthma/COPD, lung cancer, and heart failure with??improved??EF who returns for follow-up. ??Mr. Small returns today again doing well. ??He appears euvolemic with NYHA class III?dyspneaSymptoms, though I suspect his??is too significant??extent related to his prior lung radiation and COPD.?? Repeat echo today reveals normal LV systolic function, formal report is pending.?? His blood pressure is well-controlled. ??He is tolerating his regimen.?? He notes he has had a cough for several months. ??He was changed to different inhaler though he has not yet started that inhaler. ??H e feels that now his cough is better.?? We reviewed that should his cough persist and no obvious pulmonary cause be found, consideration could be given to transitioning his??sacubitril/valsartan to??losartan as??cough can be a side effect of sacubitril/valsartan.?? For now, I made no changes. ??I will plan to see him back for follow-up in 6 months. ?? Longitudinal care is provided today.?The patient has serious ongoing issues.?This office is the continuing focal point for these health services. We are providing continuity of care for multiple complex issues.?See Assessment/plan section.?Follow up visit arranged. Problem List/Past Medical History Ongoing Acid reflux disease Allergic rhinitis ASHD (arteriosclerotic heart disease) I25.10 Asthma-COPD overlap syndrome BPH (benign prostatic hyperplasia) Bulging lumbar disc Cataract Coronary arteriosclerosis in [place] artery Elevated cholesterol E78.00 Gout Ground glass opacity present on imaging of lung H/O: lung cancer Hearing loss of both ears Heart failure with mid-range ejection fraction Heart failure with reduced ejection fraction High [...] extraction???Hip arthroplasty???lumbar back surg 04/2010???Prostate implantation Medications albuterol 90 mcg/inh inhaler, 2 puff(s), Inhalation, g0ghggl, PRN, 3 refills allopurinol 100 mg oral tablet, 1 tablet(s), Oral, daily aspirin 81 mg oral enteric coated tablet, 81 mg= 1 tablet(s), Oral, daily dapagliflozin 5 mg oral tablet, 5 mg= 1 tablet(s), Oral, daily, 11 refills Entresto 49 mg-51 mg oral tablet, 1 tablet(s), Oral, bid fexofenadine 180 mg oral tablet, 180 mg= 1 tablet(s), Oral, daily Flomax 0.4 mg oral capsule, 0.4 mg= 1 capsule(s), Oral, pm after dinner, 3 refills Keflex 250 mg oral capsule, 250 mg= 1 capsule(s), Oral, qhs Lasix 20 mg oral tablet, 20 mg= 1 tablet(s), Oral, daily, 3 refills Metoprolol Succinate ER 50 mg oral tablet, extended release, 50 mg= 1 tablet(s), Oral, daily, 3 refills Multivitamin oral tablet, 1 tablet(s), Oral, daily omeprazole 20 mg oral delayed release capsule, 1 capsule(s), Oral, daily, 3 refills Potassium Chloride (Eqv-K-Tab) 10 mEq oral tablet, extended release, 10 mEq= 1 tablet(s), Oral, bid, 3 refills prochlorperazine 10 mg oral tablet, 10 mg= 1 tablet(s), Oral, daily, PRN, 1 refills rosuvastatin 20 mg oral tablet, 1 tablet(s), Oral, HS Tessalon Perles 100 mg oral capsule, 100 mg= 1 capsule(s), Oral, tid, PRN Trelegy Ellipta 100 mcg-62.5 mcg-25 mcg/inh inhalation powder, 1 puff(s), Inhalation, daily Trelegy Ellipta SAMPLE 200 mcg-62.5 mcg-25 mcg/inh Inhaler, 1 puff(s), Inhalation, daily Wixela Inhub 250 mcg-50 mcg inhalation powder, 1 puff(s), Inhalation, bid Allergies NKA Social History Smoking Status - [...] ?Grandfather/Maternal ?Unknown ?Grandmother/Paternal ?Unknown ?Grandfather/Paternal ?Unknown ? Voice to Text Technology Disclaimer This note may contain text inserted via Dragon or other voice to text assistive technology and regional intermodal truck driver, variances may occur. Outpatient Summary note * Leo Paris Munguia VP CUSTOMER DEVELOPMENT: PERFORM Event Display: Ambulatory Patient Summary Authored Date: [id number] BAM SMALL :1935 Visit Date:08/10/[address] [facility] Visit Instructions Your Diagnosis Heart failure with mid-range ejection fraction Ischemic cardiomyopathy Coronary arteriosclerosis in [place] artery HTN (hypertension) I10 Your Care Team Attending Physician - Juan Gu MD Primary Care Physician - Baldev Mccray MD Referring Physician - Juan Gu MD Procedure History ???CABG x 5 - Coronary artery bypass grafts x 5???CE - Cataract extraction???Hip arthroplasty???lumbar back surg 04/2010???Prostate implantation Discharge Vitals Vital Signs Height: 177.8 cm Height Inches Conversion: 70 Weight: 91.81 kg Weight in Pounds (kg conversion): 202 Body Surface Area: 2.1294 m2 Body Mass Index: 29.04 kg/m2 Systolic Blood Pressure:??140 mm Hg??High Diastolic Blood Pressure: 70 mm Hg Peripheral Pulse Rate:??52 bpm??Low Oxygen Saturation: 96 % What to do next Scheduled Follow-Up Appointments Saturday 11:15 AM TEAM PHYSICIAN ?? With: Susan Montiel MD Where: [facility] [address] [facility] [address] [place], [place] [phone] Saturday 11:15 AM TEAM PHYSICIAN ?? With: Where: [facility] Saturday 1:00 PM CDT ?? With: Baldev Mccray MD Where: [facility] [address] [facility] [address] [place], [place] [id number] Saturday 12:30 PM CDT ?? With: Juan Gu MD Where: [facility] Referral Information Referral Information ? No Results Found ? Medications What How Much When Instructions Unchanged albuterol (albuterol 90 mcg/ inh inhaler) 2 puff(s) Inhalation Every 4 hours as needed for shortness of breath Slow Breath inhale slowly and deeply Contact prescribing physician if questions or concerns ?? Unchanged allopurinol (allopurinol 100 mg oral tablet) 1 tablet(s) By mouth Daily FOR GOUT PREVENTION. Contact prescribing physician if questions or concerns ?? Unchanged aspirin (aspirin 81 mg oral enteric coated tablet) 1 tablet(s) By mouth Daily Contact prescribing physician if questions or concerns ?? Unchanged benzonatate (Tessalon Perles 100 mg oral capsule) 1 capsule(s) By mouth 3 times a day as needed for cough Contact prescribing physician if questions or concerns ?? Unchanged cephalexin (Keflex 250 mg oral capsule) 1 capsule(s) By mouth Every evening at bedtime Contact prescribing physician if questions or concerns ?? Unchanged dapagliflozin (dapagliflozin 5 mg oral tablet) 1 tablet(s) By mouth Daily This medication can be used for both Heart Failure and Diabetes, please do not stop or substitute without talking to the prescribing physician. Contact prescribing physician if questions or concerns ?? Unchanged fexofenadine (fexofenadine 180 mg oral tablet) 1 tablet(s) By mouth Daily Contact prescribing physician if questions or concerns ?? Unchanged fluticasone-salmeterol (Wixela Inhub 250 mcg-50 mcg inhalation powder) 1 puff(s) Inhalation 2 times a day INSTR:FAST BREATH INHALE QUICKLY AND DEEPLY Contact prescribing physician if questions or concerns ?? Unchanged fluticasone/ umeclidinium/ vilanterol (Trelegy Ellipta 100 mcg-62.5 mcg-25 mcg/ inh inhalation powder) 1 puff(s) Inhalation Daily Fast Breath inhale quickly and deeply Contact prescribing physician if questions or concerns ?? Unchanged fluticasone/ umeclidinium/ vilanterol (Trelegy Ellipta SAMPLE 200 mcg- 62.5 mcg-25 mcg/ inh Inhaler) 1 puff(s) Inhalation Daily Fast Breath???inhale quickly and deeply Contact prescribing physician if questions or concerns ?? Unchanged furosemide (Lasix 20 mg oral tablet) 1 tablet(s) By mouth Daily Contact prescribing physician if questions or concerns ?? Unchanged metoprolol (Metoprolol Succinate ER 50 mg oral tablet, extended release) 1 tablet(s) By mouth Daily Contact prescribing physician if questions or concerns ?? Unchanged multivitamin (Multivitamin oral tablet) 1 tablet(s) By mouth Daily Contact prescribing physician if questions or concerns ?? Unchanged omeprazole (omeprazole 20 mg oral delayed release capsule) 1 capsule(s) By mouth Daily Contact prescribing physician if questions or concerns ?? Unchanged potassium chloride (Potassium Chloride (Eqv-K-Tab) 10 mEq oral tablet, extended release) 1 tablet(s) By mouth 2 times a day Duration: 90 day(s) Contact prescribing physician if questions or concerns ?? Unchanged prochlorperazine (prochlorperazine 10 mg oral tablet) 1 tablet(s) By mouth Daily as needed for nausea Duration: 30 day(s) Contact prescribing physician if questions or concerns ?? Unchanged rosuvastatin (rosuvastatin 20 mg oral tablet) 1 tablet(s) By mouth HS Contact prescribing physician if questions or concerns ?? Unchanged sacubitril-valsartan (Entresto 49 mg-51 mg oral tablet) 1 tablet(s) By mouth 2 times a day Contact prescribing physician if questions or concerns ?? Unchanged tamsulosin (Flomax 0.4 mg oral capsule) 1 capsule(s) By mouth Every evening after dinner Duration: 90 day(s) Contact prescribing physician if questions or concerns ?? Medications and Immunizations Administered Medication Administrations ? No Results Found ? Allergies NKA Problems Ongoing Acid reflux disease Allergic rhinitis ASHD (arteriosclerotic heart disease) I25.10 Asthma-COPD overlap syndrome BPH (benign prostatic hyperplasia) Bulging lumbar disc Cataract Coronary arteriosclerosis in [place] artery Elevated cholesterol E78.00 Gout Ground glass opacity present on imaging of lung H/O: lung cancer Hearing loss of both ears Heart failure with mid-range ejection fraction Heart failure with reduced ejection fraction High [...] other voice to text assistive technology and regional intermodal truck driver, variances may occur. Patient Care team information Care Team Personnel Name: Cande Malloy MICROGRAPHICS SERVICES SUPERVISOR Position: AMB MICROGRAPHICS SERVICES SUPERVISOR/PA Member Role: Nurse Practitioner Address: Address: [address] [place] [phone] [place] Name: Gemma Linder Laborer Operator Position: Population Health Coordinator Member Role: Population Health Coordinator Name: Gerhard Sultana MD Position: Physician - Radiation Oncology Member Role: Radiation Oncologist Address: Address: [address] [place] [address] [place] Name: Jeremie Mujica M.D. Position: Physician - Cardiology Member Role: Riding Double Heart Failure Address: Address: [address] [place], [place] [id number] [place] Name: Garland Haywood MD Member Role: Specialist Physician Name: Veronika Odonnell RN Position: AMB ONC Nurse Navigator Member Role: Nurse Navigator Name: Baldev Mccray MD Position: Physician - Internal Medicine Member Role: Primary Care Physician Address: Address: [address] [place] [address] [place] [address] [place] Name: Laila Burch RN Outpatient Aluminum Pourer Position: OP Aluminum Pourer De Alcholizer Member Role: Aluminum Pourer Name: Bronson Vaca MICROGRAPHICS SERVICES SUPERVISOR Position: AMB ONC MICROGRAPHICS SERVICES SUPERVISOR Member Role: Nurse Practitioner Address: Address: [address] [place] [address] [place] Name: Lucas Damon Design Engineering Technician Position: AMB ONC CPM/MA/RN Member Role: Nurse Navigator Name: Juan Gu MD Position: Physician - Cardiology Med Service: Junior Java Developer Manager Production Role: Attending Physician Address: Address: [address] Care Team Related Persons Name: BRANDY SMALL Address: [address] [facility] [phone]
--- OUTSIDE RECORDS SUMMARY | 2024-11-05 00:08 | XMS_ITS | Continuity of Care Document ---
Author Organization [facility] [address] [id number] Care Team Providers Care Nuclear Officer Name Role Phone Baldev Mccray Primary Care Physician Encounter [facility] Financial Number [id number] Date(s): 06/23/24 - 06/23/24 [facility] [address] [facility] [address], [place] [id number] Encounter Diagnosis Asthma-COPD overlap syndrome(Discharge Diagnosis) - 06/23/24 History of lung cancer(Discharge Diagnosis) - 06/23/24 Discharge Disposition: Home or Self Care Attending Physician: Susan Montiel MD Allergies, Adverse Reactions, Alerts No Known Allergies Assessment and Plan Future Appointments Appointment Date:07/14/2024 11:15:00 AM Scheduled Provider:Baldev Mccray MD Location:[facility] 43W Appointment Type:CIMR EP Established Patient Appointment Date:08/10/2024 11:30:00 AM Scheduled Provider: Location:[facility] Cardiology Appointment Type:Echocardiogram Complete Study Appointment Date:08/10/2024 12:30:00 PM Scheduled Provider:Juan Gu MD Location:[facility] Appointment Type:[facility]CS Follow Up Appointment Date:09/28/2024 11:15:00 AM Scheduled Provider:Susan Montiel MD Location:[facility] 310N Appointment Type:CPA EP Established Patient Appointment Date:01/06/2025 09:45:00 AM Scheduled Provider:Baldev Mccray MD Location:[facility] 43W Appointment Type:CIMR CPE Complete Physical Exam Appointment Date:01/06/2025 11:15:00 AM Scheduled Provider: Location:[facility] DOC CT Appointment Type:CT CHEST Immunizations Given and Recorded Vaccine Date Status [...] albuterol 90 mcg/inh inhaler 2 puff(s), Inhalation, f0nyoyj, PRN, 1 each, Inhaler, 3, 3, shortness of breath, Slow Breath inhaleslowly and deeply , Route to Pharmacy Electronically, [facility] [address] [place] [facility], [id number], 172.72, cm, 07/31/23 10:20:00 CDT, Height, 86.81, kg, 07/31/23 10:20:00 CDT, Weight Start Date: 11/05/23 Status: Ordered allopurinol 100 mg oral tablet 1 tablet(s), Oral, daily, 30 tablet(s), 3, FOR GOUT PREVENTION., Route to Pharmacy Electronically, [facility], [id number], 177, cm, 02/03/24 11:23:00 CDT, Height, 91.81, kg, 02/03/24 11:23:00 CDT, Weight Start Date: 02/27/24 Status: Ordered aspirin 81 mg oral enteric [...] the prescribing physician., Route to Pharmacy Electronically, [facility] [address] [place] [facility], [id number], 177, cm, 02/03/24 11:23:00 CDT, Height, 91.81, kg, 02/03/24 11:23:00 CDT, Weight Start Date: 02/03/24 Status: Ordered Entresto 49 mg-51 mg oral tablet 1 tablet(s), Oral, bid, 180 tablet(s), 0, Route to Pharmacy Electronically, [facility] [address], [id number], 177, cm, 02/03/24 11:23:00 CDT, Height, 91.81, kg, 02/03/24 11:23:00CDT, Weight Start Date: 04/13/24 Status: Ordered fexofenadine 180 mg oral tablet 180 mg, 1 tablet(s), Oral, daily, 30 tablet(s), Tablet(s), 0 Start Date: 11/08/17 Status: Ordered Flomax 0.4 mg oral capsule 0.4 mg, 1 capsule(s), Oral, pm after dinner, 90 capsule(s), Capsule(s), 3, 3, Route to Pharmacy Electronically, [facility] [place] [facility], [id number], 172.72, cm, 11/06/2022 1120,Height, 89.09, kg, 11/06/2022 1120, Weight Start Date: 11/09/22 Stop Date: 11/04/23 Status: Ordered Keflex 250 mg oral capsule 250 mg, 1 capsule(s), Oral, qhs, 0 Start Date: 09/26/22 Status: Ordered Lasix 20 mg oral tablet 20 mg, 1 tablet(s), Oral, daily, 90 tablet(s), Tablet(s), 3, 3, Route to Pharmacy Electronically, [facility] [address] [place] [facility], [id number], 177, cm, 02/03/24 11:23:00 CDT, Height, 9 [...] capsule(s), 3, 3, Route to Pharmacy Electronically, [facility] [address] [place] [facility], [id number], 172.72, cm, 07/31/23 10:20:00 CDT, Height, 86.81, kg, 07/31/23 10:20:00 CDT, Weight Start Date: 10/30/23 Status: Ordered Potassium Chloride (Eqv-K-Tab) 10 mEq oral tablet, extended release 10 mEq, 1 tablet(s), Oral, bid, 180 tablet(s), 3, 3, Route to Pharmacy Electronically, [facility] [address], [id number], 172.72, cm, 11/06/2022 1120, Height, 89.09, kg, 11/06/2022 1120, Weight Start Date: 11/09/22 Stop Date: 11/04/23 Status: Ordered prochlorperazine 10 mg oral tablet 10 mg, 1 tablet(s), Oral, daily, PRN, 30 tablet(s), Tablet(s), 1, 1, nausea, Route to Pharmacy Electronically, [facility] [address] [place] [facility], [id number], 177, cm, 01/03/24 13:03:00 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 CONTROL SUPERVISOR, Height, 91.2, kg, 01/03/24 13:03:00 WATER CONTROL SUPERVISOR, Weight Start Date: 01/03/24 Stop Date: 03/03/24 Status: Ordered rosuvastatin 20 mg oral tablet 1 tablet(s), Oral, HS, 90 tablet(s), 0, Route to Pharmacy Electronically, [facility], [id number], 177, cm, 02/03/24 11:23:00 CDT, Height, 91.81, kg, 02/03/24 11:23:00 CDT, Weight Start Date: 06/19/24 Status: Ordered Wixela Inhub 250 mcg-50 mcg inhalation powder 1 puff(s), Inhalation, bid, 1 each, Inhaler, 3, 3, Fast Breath inhale quickly and deeply, Route to Pharmacy Electronically, [facility] [address] [place] [facility], [id number], 172.72, cm, 07/31/23 10:20:00 CDT, Height, 86.81, kg, 07/31/23 10:20:00 CDT, Weight Start Date: 11/05/23 Status: Ordered Problem List Condition Confirmation Course Effective Dates Status H ealth Status Informant Allergic rhinitis Confirmed Active Asthma-COPD overlap syndrome Confirmed Active ASHD (arteriosclerotic heart disease) I25.10 Confirmed Active BPH (benign prostatic hyperplasia) Confirmed Active Hearing loss of both ears Confirmed Active Coronary arteriosclerosis in [place] artery Confirmed Active HTN (hypertension) I10 [...] 04/2010 C ompleted Prostate implantation Com pleted 13406 2left Vital Signs Most recent to oldest [Reference Range]: 1 Peripheral Pulse Rate [60-100 bpm] 47 bp m *L (06/23/24 10:12 AM) Blood Pressure [89-139/60-90 mm Hg] 136/ 72mm Hg (06/23/24 10:12 AM) Oxygen Flow Rate 0 L/min (06/23/24 10:12 AM) Height 177 cm (06/23/24 10:12 AM) Weight 90.9 kg (06/23/24 10:12 AM) Social History Social History Type Response [...] Date: Status:Met Progression:Met Note * Tomy Hernandez [employer]HarborVeterinarian Epidemiologist: PERFORM Event Display: ROI_Correspondence Authored Date: [id number] * Event Display: ROI_Correspondence * Event Display: ROI_Correspondence * Event Display: ROI_Correspondence Outpatient Summary note * Julia Bowman NEUROSURGEON: PERFORM Event Display: Ambulatory Patient Summary Authored Date: [id number] BAM SMALL :1935 Visit Date:06/23/2024 [facility] Visit Instructions Your Diagnosis Asthma-COPD overlap syndrome History of lung cancer Your Care Team Attending Physician - Susan Montiel MD Primary Care Physician - Baldev Mccray MD Procedure History ???CABG x 5 - Coronary artery bypass grafts x 5???CE - Cataract extraction???Hip arthroplasty???lumbar back surg 04/2010???Prostate implantation Discharge Vitals Vital Signs Height: 177 cm Height Inches Conversion: 69.7 Weight: 90.9 kg Weight in Pounds (kg conversion): 200 Body Surface Area: 2.1141 m2 Body Mass Index: 29.01 kg/m2 Systolic Blood Pressure: 136 mm Hg Diastolic Blood Pressure: 72 mm Hg Peripheral Pulse Rate:??47 bpm??Critical Oxygen Saturation: 96 % Oxygen Flow Rate: 0 L/min What to do next Scheduled Follow-Up Appointments Saturday 11:15 AM CDT ?? With: Baldev Mccray MD Where: [facility] [address], [place] [phone] Saturday 11:30 AM CDT ?? With: Where: [facility] Saturday 12:30 PM CDT ?? With: Juan Gu MD Where: [facility] Saturday 11:15 AM WATER CONTROL SUPERVISOR ?? With: Susan Montiel MD Where: [facility] [address] [facility] [address] [place], [place] [phone] Saturday 9:45 AM WATER CONTROL SUPERVISOR ?? With: Baldev Mccray MD Where: [facility] [address] [phone] Saturday 11:15 AM WATER CONTROL SUPERVISOR ?? [facility]: [facility] You Need to Complete the Following CT CHEST W/O CONTRAST, hx lung cancer, 01/06/25, ROUTINE, Asthma-COPD overlap syndrome History oflung cancer, Not Required, Future Order, Electronic, RADIOLOGY Medications What How Much When Instructions Unchanged [...] Breath inhale quickly and deeply ?? Unchanged furosemide (Lasix [...] Every evening after dinner Duration: 90 day(s) Allergies NKA Problems Ongoing Acid reflux disease Allergic rhinitis ASHD (arteriosclerotic heart disease) I25.10 Asthma-COPD overlap syndrome BPH (benign prostatic hyperplasia) Bulging lumbar disc Cataract Coronary arteriosclerosis in [place] artery Elevated cholesterol E78.00 Gout Ground glass [...] other voice to text assistive technology and research pharmacist, variances may occur. Patient Care team information Care Team Personnel Name: Cande Malloy MANGANESE WHEELER Position: AMB MANGANESE WHEELER/PA Member Role: Nurse Practitioner Address: Address: [address] [place] [address] [place] Name: Gerhard Sultana MD Position: Physician - Radiation Oncology Member Role: Radiation Oncologist Address: Address: [address] [place] [address] Name: Jeremie Mujica M.D. Position: Physician - Cardiology Member Role: Reconnaissance Man Heart Failure Address: Address: [address] [place] [address] [place] Name: Garland Haywood MD Member Role: Specialist Physician Name: Veronika Odonnell RN Position: AMB ONC Nurse Navigator Member Role: Nurse Navigator Name: Baldev Mccray MD Position: Physician - Internal Medicine Member Role: Primary Care Physician Address: Address: [address] [place] [address] Name: Laila Burch RN Outpatient Parking Lot Spotter Position: OP Parking Lot Spotter Shipyard Laborer Member Role: Parking Lot Spotter Name: Bronson Vaca MANGANESE WHEELER Position: AMB ONC MANGANESE WHEELER Member Role: Nurse Practitioner Address: Address: [address] [place] [address] [place] Name: Lucas Damon Chemical Engineering Teacher Position: AMB ONC CPM/MA/RN Member Role: Nurse Navigator Name: Susan Montiel MD Position: Physician - Pulmonology Med Service: Payable Representative Nuclear Officer Role: Attending Physician Address: Address: [address] [place] [address] [address] Care Team Related Persons Name: BRANDY SMALL Address: home [address] [place] [phone]
--- OUTSIDE RECORDS SUMMARY | 2024-11-05 00:08 | XMS_ITS | Continuity of Care Document ---
Author Organization [facility] [address] Address [address] [facility] [address], [place] [id number] Care Team Providers Care Software Developer Mid Level Name Role Phone Baldev Mccray Primary Care Physician [phone] Encounter [facility] Financial Number [id number] Date(s): 01/03/24 - 01/03/24 [facility] [address] [facility] [address], [place] [id number] Encounter Diagnosis ASHD (arteriosclerotic heart disease) I25.10(Discharge Diagnosis) - 01/03/24 HTN (hypertension) I10(Discharge Diagnosis) - 01/03/24 Ischemic cardiomyopathy(Discharge Diagnosis) - 01/03/24 Asthma-COPD overlap syndrome(Discharge Diagnosis) - 01/03/24 Ground glass opacity present on imaging of lung(Discharge Diagnosis) - 01/03/24 History of lung cancer(Discharge Diagnosis) - 01/03/24 Elevated cholesterol E78.00(Discharge Diagnosis) - 01/03/24 Acid reflux disease(Discharge Diagnosis) - 01/03/24 History of pulmonary hypertension(Discharge Diagnosis) - 01/03/24 S/P radiation therapy(Discharge Diagnosis) - 01/03/24 BPH (benign prostatic hyperplasia)(Discharge Diagnosis) - 01/03/24 Hx of gout(Discharge Diagnosis) - 01/03/24 Nausea and vomiting(Discharge Diagnosis) - 01/03/24 Heart failure with reduced ejection fraction(Discharge Diagnosis) - 01/03/24 Hearing loss of both ears(Discharge Diagnosis) - 01/03/24 Discharge Disposition: Home or Self Care Attending Physician: Baldev Mccray MD Allergies, Adverse Reactions, Alerts No Known Allergies Assessment and Plan Future Appointments Appointment Date:01/21/2024 10:15:00 AM Scheduled Provider: Location:[facility] Appointment Type:CT CHEST Appointment Date:06/23/2024 10:15:00 AM Scheduled Provider:Susan Montiel MD Location:[facility] Appointment Type:CPA EP Established Patient Appointment Date:07/14/2024 11:15:00 AM Scheduled Provider:Baldev Mccray MD Location:[facility] Appointment Type:CIMR EP Established Patient Appointment Date:01/06/2025 09:45:00 AM Scheduled Provider:Baldev Mccray MD Location:[facility] Appointment Type:CIMR CPE Complete Physical Exam [...] albuterol 90 mcg/inh inhaler 2 puff(s), Inhalation, [id number], PRN, 1 each, Inhaler, 3, 3, shortness of breath, Slow Breath inhaleslowly and deeply , Route to Pharmacy Electronically, [facility], [id number], 172.72, cm, 07/31/23 10:20:00 CDT, Height, 86.81, kg, 07/31/23 10:20:00 CDT, Weight Start Date: 11/05/23 Status: Ordered allopurinol 100 mg oral tablet 1 tablet(s), Oral, daily, 30 tablet(s), 0, 0, FOR GOUT PREVENTION., Route to Pharmacy Electronically, [facility], [id number], 172.72, cm, 07/31/23 10:20:00 CDT, Height, 86.81, kg, 07/31/23 10:20:00 CDT, Weight Start Date: 12/18/23 Status: Ordered aspirin 81 mg oral enteric coated tablet 81 mg, 1 tablet(s), Oral, daily, Tab EC, 0 Start Date: 11/08/17 Status: Ordered Entresto 49 mg-51 mg oral tablet 1 tablet(s), Oral, bid, 60 tablet(s), Tablet(s), 0, 0, Route to Pharmacy Electronically, [facility], [id number], 172.72, cm, 07/31/23 10:20:00 CDT, Height, 86.81,kg, 07/31/23 10:20:00 CDT, Weight Start Date: 12/18/23 Status: Ordered fexofenadine 180 mg oral tablet 180 mg, 1 tablet(s), Oral, daily, 30 tablet(s), Tablet(s), 0 Start Date: 11/08/17 Status: Ordered Flomax 0.4 mg oral capsule 0.4 mg, 1 capsule(s), Oral, pm after dinner, 90 capsule(s), Capsule(s), 3, 3, Route to Pharmacy Electronically, [facility], [id number], 172.72, cm, 11/06/2022 1120,Height, 89.09, kg, 11/06/2022 1120, Weight Start Date: 11/09/22 Stop Date: 11/04/23 Status: Ordered Keflex 250 mg oral capsule 250 mg, 1 capsule(s), Oral, qhs, 0 Start Date: 09/26/22 Status: Ordered Lasix 40 mg oral tablet 40 mg, 1 tablet(s), Oral, daily, 90 tablet(s), Tablet(s), 3, 3, Route to Pharmacy Electronically, [facility], [id number], 178, cm, 09/22/2022 2335, Height, 93.7, k g, 09/26/2022 0507, Weight Start Date: 10/18/22 Stop Date: 10/13/23 Status: Ordered Metoprolol Tartrate 50 mg oral tablet 50 mg, 1 tablet(s), Oral, bid, 180 tablet(s), Tablet(s), 3, 3, Route to Pharmacy Electronically, [facility] [address] [facility], [id number], 172.72, cm, 01/30/2023 1336, Height, 86.4,kg, 02/19/2023 1340, Weight Start Date: 03/14/23 Stop Date: 03/08/24 Status: Ordered Multivitamin oral tablet 1 tablet(s), Oral, daily, 30 tablet(s), 0 Start Date: 11/12/12 Status: Ordered omeprazole 20 mg oral delayed release capsule 1 capsule(s), Oral, daily, 90 capsule(s), 3, 3, Route to Pharmacy Electronically, [facility] [address] [facility], [id number], 172.72, cm, 07/31/23 10:20:00 CDT, Height, 86.81, kg, 07/31/23 10:20:00 CDT, Weight Start Date: 10/30/23 Status: Ordered Potassium Chloride (Eqv-K-Tab) 10 mEq oral tablet, extended release 10 mEq, 1 tablet(s), Oral, bid, 180 tablet(s), 3, 3, Route to Pharmacy Electronically, [facility] [address] [facility], [id number], 172.72, cm, 11/06/2022 1120, Height, 89.09, kg, 11/06/2022 1120, Weight Start Date: 11/09/22 Stop Date: 11/04/23 Status: Ordered prochlorperazine 10 mg oral tablet 10 mg, 1 tablet(s), Oral, daily, PRN, 30 tablet(s), Tablet(s), 1, 1, nausea, Route to Pharmacy Electronically, [facility] [address] [facility], [id number], 177, cm, 01/03/24 13:03:00 CHEMICAL ENGINEERING TECHNICIAN, Height, 91.2, kg, 01/03/24 13:03:00 CHEMICAL ENGINEERING TECHNICIAN, Weight Start Date: 01/03/24 Stop Date: 03/03/24 Status: Ordered rosuvastatin 20 mg oral tablet 1 tablet(s), Oral, HS, 90 tablet(s), 3, Route to Pharmacy Electronically, [facility], [id number], 172.72, cm, 01/30/23 13:36:00 CDT, Height, 86.4, kg, 02/19/23 13:40:00CDT, Weight Start Date: 06/10/23 Status: Ordered Wixela Inhub 250 mcg-50 mcg inhalation powder 1 puff(s), Inhalation, bid, 1 each, Inhaler, 3, 3, Fast Breath inhale quickly and deeply, Route to Pharmacy Electronically, [facility] [address] [facility], [id number], 172.72, cm, 07/31/23 10:20:00 CDT, Height, 86.81, kg, 07/31/23 10:20:00 CDT, Weight Start Date: 11/05/23 Status: Ordered Problem List Condition Confirmation Course Effective Dates Status H ealth Status Informant Allergic rhinitis Confirmed Active Asthma-COPD overlap syndrome Confirmed Active ASHD (arteriosclerotic heart disease) I25.10 Confirmed Active BPH (benign prostatic hyperplasia) Confirmed Active Hearing loss of both ears Confirmed Active Coronary arteriosclerosis in [place] artery Confirmed Active HTN (hypertension) I10 Confirmed [...] 04/2010 C ompleted Prostate implantation Com pleted 60199 2left Vital Signs Most recent to oldest [Reference Range]: 1 Peripheral Pulse Rate [60-100 bpm] 56 bp m *L* (01/03/24 1:03 PM) Blood Pressure [89-139/60-90 mm Hg] 124/ 70mm Hg (01/03/24 1:03 PM) Height 177 cm (01/03/24 1:03 PM) Weight 91.2 kg (01/03/24 1:03 PM) Social History Social History Type Response [...] Date: Status:Met Progression:Met Note * Event Display: Consent/Registration Forms Authored Date: * Event Display: Consent/Registration Forms Authored Date: * Event Display: Privacy Practice Authored Date: * [facility] Fish Frog Or Oyster Farmer: PERFORM Event Display: ROI_Correspondence Authored Date: [id number] * Event Display: ROI_Correspondence * Event Display: ROI_Correspondence * Event Display: ROI_Correspondence Internal medicine Outpatient Note * Baldev Mccray MD: PERFORM Event Display: Internal Medicine Office/Clinic Note Authored Date: Patient Information Name:BAM SMALL Address: [address] [place] [id number] Sex:Male Date of :1935 Emergency Contact:RBANDY SMALL Location:[facility] [address] Registration Date and Time:01/03/2024 12:33 CHEMICAL ENGINEERING TECHNICIAN Primary Care Physician: Baldev Mccray MD, Attending Physician: Baldev Mccray MD, Chief Complaint Establish Care (Dr. Joshua cardoso) History of Present Illness Meet Small??is a pleasant 88-year-old gentleman who is??establishing care with me today.?? He was seeing Dr. Yung Lewis??previously.?? He has hypertension,??arteriosclerotic heart disease, ischemic cardiomyopathy.?? He is on??Entresto, metoprolol??and??Lasix??treatment.?? His ejection fraction on his last echo done in July 2023??showed??EF??of??around 45%??which is an improvement compared to his previous echo.?? His lower extremity edema has improved significantly??on current regimen.?? He is now looking for a new tunnel mucker. He also has??asthma -COPD??overlap syndrome??and lung nodules??with history of??lung cancer??that was treated with radiation??and is followed by director of neighborhood service center Dr Montiel??and radiation oncologist ??Rd. He was a former smoker but he??gave up smoking many years ago.?? He is on inhalers as per??his director of neighborhood service center. He has history of acid reflux disease??for which she takes??omeprazole??but he also??gets occasional??dizzy spells??associated with nausea vomiting??and he has been tried on Dramamine/meclizine??without??much help but??Compazine??works well for him and he request refill of his Compazine medication. He has history of BPH??for which he takes tamsulosin. He has bilateral hearing loss??and uses hearing aids but he??has lost??his left??hearing aid and??he will be??looking to get??a pair of new hearing aids. Review of Systems GENERAL: No significant wt loss or wt gain, no fever or chills HEENT: No pain in ears, nose ??or throat,??has hearing loss in both ears??and uses hearing aid??butlost the left one??in recent past RESPIRATORY: No cough, occasional??SOB or Wheezing, no pleuritic chest pain [...] suicidal or homicidal thoughts, no mood swings Vitals and Measurements Vital Signs Height: 177 cm Height Inches Conversion: 69.7 Weight: 91.2 kg Weight in Pounds (kg conversion): 200.6 Body Surface Area: 2.1175 m2 Body Mass Index: 29.11 kg/m2 Systolic Blood Pressure: 124 mm Hg Diastolic Blood Pressure: 70 mm Hg Peripheral Pulse Rate:??56 bpm??Low Oxygen Saturation: 95 % HRA Pain Present: No Physical Exam General Examination GENERAL APPEARANCE: Overall appearance is appropriate for patient???s age, pleasant??elderly overweight gentleman,??well developed and well nourished, in no acute distress.? EYES: extra ocular muscles intact (EOMI) bilaterally, pupils, equal, round, reactive to light and accommodation (PERRLA), sclera clear.?? HEENT: Head - normocephalic/atraumatic, EARS:??Wearing hearing aid in right ear NOSE: Exam deferred ORAL CAVITY: Exam deferred NECK/THYROID: no carotid bruit, no jugular venous distention (JVD), no lymphadenopathy, no thyromegaly.?? CARDIOVASCULAR: regular rate and rhythm, normal S1S2, no murmurs, gallops or rubs.?? CHEST: symmetrical.?? RESPIRATORY: normal breath sounds, no wheezes, rhonchi, rales.?? GASTROINTESTINAL: soft, non-tender/non-distended, bowel sounds present.?? SKIN: unremarkable.?? EXTREMITIES: no clubbing, cyanosis,??trace edema.?? PERIPHERAL PULSES:?? (+) bilaterally.?? LYMPH NODES: No palpable adenopathy.?? RECTAL: Deferred BACK: No spinal tenderness. MUSCULOSKELETAL: No??acute joint pain or redness or swelling of joints. NEUROLOGIC EXAM: Alert and orientated?3, cranial nerves II-XII grossly intact??Hard of hearing, no motor/sensory deficit. Gait normal. PSYCHIATRIC: Normal affect, no suicidal or homicidal ideations or thoughts, good eye contact. Assessment/Plan 1.??HTN (hypertension) I10 Blood pressure is stable and under control??on current regimen.?? Checking??lab work. Ordered: COMPREHENSIVE METABOLIC PANEL - Ref Lab Only Q Lipid Panel Referral Ambulatory ?? 2.??ASHD (arteriosclerotic heart disease) I25.10 Currently denies chest pain or angina??symptoms.?? Recommended following up with tunnel mucker. Ordered: COMPREHENSIVE METABOLIC PANEL - Ref Lab Only Q Lipid Panel Referral Ambulatory ?? 3.??Ischemic cardiomyopathy Continue current med regimen.?? Recommended seeing tunnel mucker??Dr. Scott. Ordered: Referral Ambulatory ?? 4.??Heart failure with reduced ejection fraction Continue current med regimen.?? Follow strict low-salt??diet.?? Recommended seeing Dr. Scott??and patient will call to get an appointment with him. Ordered: Referral Ambulatory ?? 5.??Elevated cholesterol E78.00 Follow low-fat low-cholesterol heart healthy diet??and continue with rosuvastatin treatment. Ordered: COMPREHENSIVE METABOLIC PANEL - Ref Lab Only Q Lipid Panel ?? 6.??Asthma-COPD overlap syndrome Followed by director of neighborhood service center Dr Montiel.?? Continue current??inhaler regimen. ?? 7.??Ground glass opacity present on imaging of lung Monitored and followed by??director of neighborhood service center Dr Montiel. ?? 8.??History of lung cancer Was treated??with radiation treatment.?? Followed by radiation oncologist ??Rd. ?? 9.??S/P radiation therapy Followed by radiation oncologist as mentioned above. ?? 10.??History of pulmonary hypertension Followed by??Dr Montiel. ?? 11.??Acid reflux disease Follow reflux precautions and continue to use??omeprazole??as needed. ?? 12.??Nausea and vomiting Gets occasional dizziness associated with nausea and vomiting.?? Compazine helps to control the nausea and vomiting. ?? 13.??BPH (benign prostatic hyperplasia) Continue taking Flomax. ?? 14.??Hx of gout Follow low purine diet and continue to take allopurinol. ?? 15.??Hearing loss of both ears Uses hearing aids but lost??left ear hearing aid??in recent past.?? Will be looking to get??a new pair. ?? Orders: prochlorperazine, 10 mg, 1 tablet(s), Oral, daily, PRN, 30 tablet(s), Tablet(s), 1, 1, nausea, Route to Pharmacy Electronically, [facility], [id number], 177, cm, 01/03/24 13:03:00 CHEMICAL ENGINEERING TECHNICIAN, Height, 91.2, kg, 01/03/24 13:03:00 CHEMICAL ENGINEERING TECHNICIAN, Weight Follow-up??in 6 months Problem List/Past Medical History Ongoing Acid reflux disease Allergic rhinitis ASHD (arteriosclerotic heart disease) I25.10 Asthma-COPD overlap syndrome BPH (benign prostatic hyperplasia) Bulging lumbar disc Cataract Coronary arteriosclerosis in [place] artery Elevated cholesterol E78.00 Gout Ground glass [...] extraction???Hip arthroplasty???lumbar back surg 04/2010???Prostate implantation Medications Changed prochlorperazine (prochlorperazine 10 mg oral tablet)1 tablet(s) By mouth daily as needed nausea for 30 day(s). Refills: 1. Unchanged albuterol (albuterol 90 mcg/inh inhaler)2 puff(s) Inhalation every 4 hours as needed shortness of breath. Slow Breath inhale slowly and deeply . Refills: 3. allopurinol (allopurinol 100 mg oral tablet)1 tablet(s) By mouth daily. FOR GOUT PREVENTION.. Refills: 0. aspirin (aspirin 81 mg oral enteric coated tablet)1 tablet(s) By mouth daily. cephalexin (Keflex 250 mg oral capsule)1 capsule(s) By mouth every evening at bedtime. fexofenadine (fexofenadine 180 mg oral tablet)1 tablet(s) By mouth daily. fluticasone-salmeterol (Wixela Inhub 250 mcg-50 mcg inhalation powder)1 puff(s) Inhalation 2 times a day. Fast Breath inhale quickly and deeply. Refills: 3. furosemide (Lasix 40 mg oral tablet)1 tablet(s) By mouth daily for 90 day(s). Refills: 3. metoprolol (Metoprolol Tartrate 50 mg oral tablet)1 tablet(s) By mouth 2 times a day for 90 day(s).Refills: 3. multivitamin (Multivitamin oral tablet)1 tablet(s) By mouth daily. omeprazole (omeprazole 20 mg oral delayed release capsule)1 capsule(s) By mouth daily. Refills: 3. potassium chloride (Potassium Chloride (Eqv-K-Tab) 10 mEq oral tablet, extended release)1 tablet(s)By mouth 2 times a day for 90 day(s). Refills: 3. rosuvastatin (rosuvastatin 20 mg oral tablet)1 tablet(s) By mouth HS. Refills: 3. sacubitril-valsartan (Entresto 49 mg-51 mg oral tablet)1 [...] Status - 02/25/2015 Former smoker Alcohol Current some day alcohol user, Wine, 01/24/2023 Current every day alcohol user, Liquor, Daily, 1 drink, 01/24/2022 Substance Abuse Never drug user, 01/24/2023 Never drug user, 01/24/2022 Tobacco Former smoker, Smokeless Tobacco use: Never. N/A Cessation Counseling. Cigarettes, Stopped age 55 Years., 07/31/2023 Family History ?Mother ?Positive ?Hypertension ?Mother ?Positive ?Breast cancer ?Sister ?Positive ?Arthritis ?Mother ?Positive ?Stroke ?Grandmother/Maternal ?Unknown ?Grandfather/Maternal ?Unknown ?Grandmother/Paternal ?Unknown ?Grandfather/Paternal ?Unknown ? POC Results Event Name?? Event Result?? Date/Time?? Oxygen Saturation 95 % 01/03/24 13:03:00 ? Voice to Text Technology Disclaimer This note may contain text inserted via Dragon or other voice to text assistive technology and drop wire aliner, variances may occur. Outpatient Summary note * Izabella Coronado Iram LOPEZ-MR: PERFORM Event Display: Ambulatory Patient Summary Authored Date: [id number] BAM SMALL :1935 Visit Date:01/03/2024 [facility] Visit Instructions Your Diagnosis HTN (hypertension) I10 ASHD (arteriosclerotic heart disease) I25.10 Ischemic cardiomyopathy Elevated cholesterol E78.00 Asthma-COPD overlap syndrome Ground glass opacity present on imaging of lung History of lung cancer S/P radiation therapy History of pulmonary hypertension Acid reflux disease Nausea and vomiting BPH (benign prostatic hyperplasia) Hx of gout Hearing loss of both ears Your Care Team Attending Physician - Baldev Mccary MD Primary Care Physician - Baldev Mccray MD Procedure History ???CABG x 5 - Coronary artery bypass grafts x 5???CE - Cataract extraction???Hip arthroplasty???lumbar back surg 04/2010???Prostate implantation Discharge Vitals Vital Signs Height: 177 cm Height Inches Conversion: 69.7 Weight: 91.2 kg Weight in Pounds (kg conversion): 200.6 Body Surface Area: 2.1175 m2 Body Mass Index: 29.11 kg/m2 Systolic Blood Pressure: 124 mm Hg Diastolic Blood Pressure: 70 mm Hg Peripheral Pulse Rate:??56 bpm??Low Oxygen Saturation: 95 % HRA Pain Present: No What to do next Scheduled Follow-Up Appointments Saturday 10:15 AM CDT ?? With: Where: [facility] Saturday 10:15 AM CDT ?? With: Susan Montiel MD Where: [facility] [address] [phone] Saturday 11:15 AM CDT ?? With: Baldev Mccray MD Where: [facility] [address] [phone] Saturday 9:45 AM CHEMICAL ENGINEERING TECHNICIAN ?? With: Baldev Mccray MD Where: [facility] [address] [phone] Referral Information Referral Information ? No Results Found ? Medications What How Much When Instructions Changed prochlorperazine (prochlorperazine 10 mg oral tablet) 1 tablet(s) By mouth Daily as needed for nausea Duration: 30 day(s) Pickup at [place] [address] [facility] Unchanged albuterol (albuterol 90 mcg/ inh inhaler) [...] By mouth Every evening at bedtime Unchanged fexofenadine (fexofenadine 180 mg oral tablet) 1 tablet(s) By mouth Daily Unchanged fluticasone-salmeterol (Wixela Inhub 250 mcg-50 mcg inhalation powder) 1 puff(s) Inhalation 2 times a day Fast Breath inhale quickly and deeply ?? Unchanged furosemide (Lasix 40 mg oral tablet) 1 tablet(s) By mouth Daily Duration: 90 day(s) Unchanged metoprolol (Metoprolol Tartrate 50 mg oral tablet) 1 tablet(s) By mouth 2 times a day Duration: 90 day(s) Unchanged multivitamin (Multivitamin oral tablet) 1 tablet(s) By mouth Daily Unchanged omeprazole (omeprazole 20 mg oral delayed release capsule) 1 capsule(s) By mouth Daily Unchanged potassium chloride (Potassium Chloride (Eqv-K-Tab) 10 mEq oral tablet, extended release) 1 tablet(s) By mouth 2 times a day Duration: 90 day(s) Unchanged rosuvastatin (rosuvastatin 20 mg oral tablet) 1 tablet(s) By mouth HS Unchanged sacubitril-valsartan (Entresto 49 mg-51 mg oral tablet) 1 tablet(s) By mouth 2 times a day Unchanged tamsulosin (Flomax 0.4 mg oral capsule) 1 capsule(s) By mouth Every evening after dinner Duration: 90 day(s) Pharmacy Information [place] [address] [facility]: [address] [place], [place] [phone] Medications and Immunizations Administered Medication Administrations ? No Results Found ? Allergies NKA Problems Ongoing Acid reflux disease Allergic rhinitis ASHD (arteriosclerotic heart disease) I25.10 Asthma-COPD overlap syndrome BPH (benign prostatic hyperplasia) Bulging lumbar disc Cataract Coronary arteriosclerosis in [place] artery Elevated cholesterol E78.00 Gout Ground glass opacity present on imaging of lung H/O: lung cancer Hearing loss of both ears High blood pressure High cholesterol History of [...] other voice to text assistive technology and drop wire aliner, variances may occur. Patient Care team information Care Team Personnel Name: Cande Malloy HARVEST WORKER FRUIT Position: AMB HARVEST WORKER FRUIT/PA Member Role: Nurse Practitioner Address: Address: [address] [facility] [address], [place] [phone] Name: Abena Saldaña RN Lung Screening Coordinator Position: Population Health Coordinator Member Role: Population Health Coordinator Name: Jeremie Mujica M.D. Position: Physician - Cardiology Member Role: Paint Roller Assembler Heart Failure Address: Address: [address] [place], [place] [phone] Name: Mindi Ma Family Practitioner Position: Population Health Coordinator Grain Trader Member Role: Population Health Coordinator Name: Garland Haywood MD Member Role: Specialist Physician Address: Address: [address] [place] [address] Name: Veronika Odonnell RN Position: AMB ONC Nurse Navigator Member Role: Nurse Navigator Name: Baldev Mccray MD Position: Physician - Internal Medicine Member Role: Primary Care Physician Address: Address: [address] [place] [address] [place] Name: Laila Burch RN Outpatient Tap Out Operator Position: OP Tap Out Operator Tank Maker Wood Member Role: Tap Out Operator Name: Bronson Vaca HARVEST WORKER FRUIT Position: AMB ONC HARVEST WORKER FRUIT Member Role: Nurse Practitioner Address: Address: [address] Name: Lucas Damon Gem Setter Position: AMB ONC CPM/MA/RN Member Role: Nurse Navigator Name: Baldev Mccray MD Position: Physician - Internal Medicine Med Service: Manager Diabetes Software Developer Mid Level Role: Attending Physician Address: Address: [address] Care Team Related Persons Name: BRANDY SMALL Address: home [address] [facility] [facility] [facility] [id number]
--- OUTSIDE RECORDS SUMMARY | 2024-11-05 00:08 | XMS_ITS | Continuity of Care Document ---
Author Organization [facility] Address [address] [facility] [address] [place] [phone] Care Team Providers Care Pipe Tester Name Role Phone Luis Fernando Vo Primary Care Physician Encounter [facility] Financial Number [id number] Date(s): 03/11/23 - 03/11/23 [facility] [address] [place] [phone] Discharge Disposition: Home or Self Care Attending Physician: Garland Haywood MD Referring Physician: Luis Fernando Vo M.D. Allergies, Adverse Reactions, Alerts No Known Allergies Assessment and Plan Future Appointments Appointment Date:07/31/2023 10:15:00 AM Scheduled Provider:Susan Montiel MD Location:[address] Appointment Type:CPA EP Established Patient Immunizations Given [...] each, 10, 90, Route to Pharmacy Electronically, [facility], [id number], 175, cm, 11/13/2021 1717, Height, 86.3, kg, 11/13/2021 1717, Weight Start Date: 01/22/22 Status: Ordered albuterol 90 mcg/inh inhaler 2 puff(s), Inhalation, p3dvicx, PRN, 1 each, Inhaler, 3, 3, shortness of breath, Slow Breath inhaleslowly and deeply , Route to Pharmacy Electronically, [facility] [address] [place] [facility], [id number], 175, cm, 07/25/2022 1145, Height, 97.... Start Date: 07/25/22 Status: Ordered allopurinol 100 mg oral tablet 1 tablet(s), Oral, daily, 90 tablet(s), 3, FOR GOUT PREVENTION., Route to Pharmacy Electronically, [facility] [address], [id number], 175, cm, 07/25/2022 1145, Height, 97.5, kg, 07/25/2022 1145, Weight Start Date: 08/06/22 Status: Ordered aspirin 81 mg oral enteric coated tablet 81 mg, 1 tablet(s), Oral, daily, Tab EC, 0 Start Date: 11/08/17 Status: Ordered Entresto 49 mg-51 mg oral tablet 1 tablet(s), Oral, bid, 180 tablet(s), Tablet(s), 3, 3, Route to Pharmacy Electronically, [facility] [id number], [id number], 178, cm, 09/22/2022 2335, Height, 93.7, kg, 09/26/2022 0507, Weight Start Date: 10/18/22 Stop Date: 10/13/23 Status: Ordered fexofenadine 180 mg oral tablet 180 mg, 1 tablet(s), Oral, daily, 30 tablet(s), Tablet(s), 0 Start Date: 11/08/17 Status: Ordered Flomax 0.4 mg oral capsule 0.4 mg, 1 capsule(s), Oral, pm after dinner, 90 capsule(s), Capsule(s), 3, 3, Route to Pharmacy Electronically, [facility] [address] [place] [facility], [id number], 172.72, cm, 11/06/2022 1120,Height, 89.09, kg, 11/06/2022 1120, Weight Start Date: 11/09/22 Stop Date: 11/04/23 Status: Ordered Keflex 250 mg oral capsule 250 mg, 1 capsule(s), Oral, qhs, 0 Start Date: 09/26/22 Status: Ordered Lasix 40 mg oral tablet 40 mg, 1 tablet(s), Oral, daily, 90 tablet(s), Tablet(s), 3, 3, Route to Pharmacy Electronically, [facility] [address] [place] [facility], [id number], 178, cm, 09/22/2022 2335, Height, 93.7, k g, 09/26/2022 0507, Weight Start Date: 10/18/22 Stop Date: 10/13/23 Status: Ordered Metoprolol Tartrate 50 mg oral tablet 50 mg, 1 tablet(s), Oral, bid, 180 tablet(s), Tablet(s), 3, 3, Route to Pharmacy Electronically, [facility] [address] [place] [facility], [id number], 178, cm, 09/22/2022 2335, Height, 93.7, kg, 09/26/2022 0507, Weight Start Date: 10/18/22 Stop Date: 10/13/23 Status: Ordered Multivitamin oral tablet 1 tablet(s), Oral, daily, 30 tablet(s), 0 Start Date: 11/12/12 Status: Ordered omeprazole 20 mg oral delayed release capsule 1 capsule(s), Oral, daily, 90 capsule(s), 3, Route to Pharmacy Electronically, [facility], [id number], 178, cm, 09/22/2022 2335, Height, 93.7, kg, 09/26/2022 0507, Weight Start Date: 10/01/22 Status: Ordered Potassium Chloride (Eqv-K-Tab) 10 mEq oral tablet, extended release 10 mEq, 1 tablet(s), Oral, bid, 180 tablet(s), 3, 3, Route to Pharmacy Electronically, [facility] [address] [facility], [id number], 172.72, cm, 11/06/2022 1120, Height, 89.09, kg, 11/06/2022 1120, Weight Start Date: 11/09/22 Stop Date: 11/04/23 Status: Ordered prochlorperazine 10 mg oral tablet 10 mg, 1 tablet(s), Oral, z2ykyce, PRN, 30 each, Tablet(s), 1, 1, nausea, Route to Pharmacy Electronically, [facility] [address] [place] [facility], [id number], 172.72, cm, 11/06/2022 1120, Height, 89.09, kg, 11/06/2022 1120, Weight Start Date: 11/06/22 Stop Date: 01/05/23 Status: Ordered rosuvastatin 20 mg oral tablet 1 tablet(s), Oral, HS, 90 tablet(s), 3, Route to Pharmacy Electronically, [facility], [id number], 175.26, cm, 04/26/2022 0917, Height, 97.7, kg, 04/26/2022 0917, Weight Start Date: 05/29/22 Status: Ordered Problem List Condition Confirmation Course Effective Dates Status H ealt Status Informant Asthma Confirmed Active Asthma-COPD overlap syndrome Confirmed Active ASHD (arteriosclerotic heart disease) I25.10 Confirmed Active COPD (chronic obstructive pulmonary disease) Confirmed Active Acute exacerbation of chronic obstructive airways disease J44.1 Confirmed Active COPD (chronic obstructive pulmonary disease) J44.9 Confirmed Active 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 HTN (hypertension) I10 Confirmed [...] Confirmed Active Solitary pulmonary nodule Confirmed Active Asthma J45.909 Confirmed Active Urinary incontinence Confirmed Active 1frequency Procedures Procedure Date Related Diagnosis Body Site Status 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 Completed CE - Cataract extraction Completed Hip arthroplasty 2 Comple chiara lumbar back surg 04/2010 C ompleted Prostate implantation Com pleted [id number] 2left Social History Social History Type Response [...] Status:Met Progression:Met Note * [facility] 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 Position: Physician - Cardiology Member Role: Printed Circuit Board Designer Heart Failure Address: Address: [address] [place] [phone] [place] Name: Mindi Ma Hotel Maintenance Worker Position: Population Health Coordinator Member Role: Population Health Coordinator Name: Garland Haywood MD Position: Physician - Electrophysiology Member Role: Specialist Physician Address: Address: [address] [place] [address] Dr [address] [place] [address] Name: Veronika Odonnell RN Position: AMB ONC Nurse Navigator Member Role: Nurse Navigator Name: Luis Fernando Vo M.D. Position: Physician - Cardiology Member Role: Primary Care Physician Address: Address: [address] [facility] [address] [place] [address]- Name: Laila Burch RN Outpatient Bellows Assembler Position: OP Bellows Assembler Project Coach Member Role: Bellows Assembler Name: Bronson Vaca INTERVENTIONAL CARDIOLOGIST Position: AMB ONC INTERVENTIONAL CARDIOLOGIST Member Role: Nurse Practitioner Address: Address: [address] [place] [address] [place] Name: Garland Haywood MD Position: Physician - Electrophysiology Med Service: Vessel Slagman Pipe Tester Role: Attending Physician Address: Address: [address] [place] [address] [place] Name: Luis Fernando Vo M.D. Position: Physician - Cardiology Med Service: Vessel Slagman Pipe Tester Role: Referring Physician Address: Address: [address] [facility] [address] [place] [address]- Care Team Related Persons Name: BRANDY SMALL Address: home [address] [place] [phone]
--- OUTSIDE RECORDS SUMMARY | 2024-11-05 00:09 | XMS_ITS | Encounter Summary ---
Author Organization [facility] Address [address] [place] [address] Care Team Providers Care Hand Coremaker Name Role Phone Luis Fernando Vo MD Primary Care Provider [phone] Reason for Visit * Auth/Cert Specialty Diagnoses / Procedures Referred By Carlyn hester Referred To Contact Diagnoses Melanocytic neoplasm of skin MELANOCYTIC NEOPLASM Procedures RECONSTRUCTION/REPAIR NASAL Referral ID Status Reason Start Date Expiration Date Visits Re quested Visits Authorized [id number] 1 1 Encounter Details Date Type Department Care Team (Late st Contact Info) Description 07/05/2021 9:06 AM CDT Anesthesia Event [facility] [address] [place] [id number] Micaela Khan MD [address] [place] [address] DEPT [place] [address] Cheyanne Thomas MD [address] [facility] [place] [id number] Anesthesia Record Procedure Summary Procedure Name Responsible Anesthesiologist Anesthesia Start Time Anesthesia Stop Time RECONSTRUCTION OF NASAL TIP DEFECT, POSSIBLE AURICULAR CARTILAGE GRAFT (Nose) Micaela Kahn MD 07/05/21 0906 07/05/21 1137 Events Date Time Event Comment 07/05/2021 0740 0906 An Start 0906 Pt In Room 0906 An Start Data 0918 Anes Timeout 0918 PT Reassessment 0918 Induction 0920 An Intubation 0937 Anes Ready 0938 Local Infiltration by Azizao n 0949 Time Out Anesthesia part icipated in timeout at the time documented in the record by nursing 0949 Proc Start 1124 Proc Stop 1124 An Emergence 1129 Extubation 1132 an stop data 1132 Pt out of Room 1132 ANPTO2 1137 An Stop Meds Name Total ceFAZolin 2,000 mg IVPB 2 g fentaNYL 100 mcg/2ml injection 75 mcg lidocaine PF 2% 100 mg propofol 200mg/20mL injection 50 mg etomidate 2 mg/mL injection 20 mg rocuronium 50 mg/5 mL injection 50 mg phenylephrine 100 mcg/mL syringe 300 mcg dexamethasone 10 mg/ml PF injection 4 mg ondansetron 4mg/2mL injection 4 mg sugammadex 200 mg/2mL injection 200 mg lactated ringers infusion 700 mL * Agents Name Insp. N2O Exp. Sevoflurane Exp. N2O O2 Air Insp. Sevoflurane * Blood No blood administrations on file. Lines, Drains, and Airways Type Details Placement Removal Peripheral IV Date: 07/05/21; Time : 08; Orientation: Distal, Posterior, Left 07/05/21 0810 by Lyric Graves RN 07/05/21 1321 by Lyric Graves RN ETT Date: 07/05/21; Time : 09; Placed By: MARCUS Elias; Vent: easy with oral airway mask; Induction: Standard IV; Blade Type: Video; Blade Size: 4; Laryngoscopy View: Grade 1 (full cords); Intubation Adjuncts: Video Laryngoscope; Tube: Endotracheal Tube; Placement: Oral; Tube Type: Cuffed-inflated; Tube Size(mm): 7.5 MM; Depth of Insertion: 23 CM; Measured From: teeth; Attempts: 1; Cuff Infated: Air; Cuff Vol(mL): 5 mL; Verified By: Direct visualization, Bilateral breath sounds, CO2 Monitor 07/05/21 09 by Rosaline Willingham APRN-CRNA 07/05/21 112 by Anjana Black DO Procedural Site (Incision) 07/05/21; 1033; Nose; XEROFORM; 07/05/21; 193907/05/21 1033 by Mitzi Hernadez RN 09/01/21 1940 by Generic, Auto Release documented in this encounter Social History Tobacco Use Types Packs/Day Years Used Date Smoking Tobacco: Former Smokeless Tobacco: Never Alcohol Use Standard Drinks/Week Comments Yes 0 (1 standard drink = 0.6 oz pur e alcohol) nightly gin and tonic Sex and Gender Information Value Date Recorded Sex Assigned at Not on file Gender Identity Not on file Sexual Orientation Not on file COVID-19 Exposure Response Date Recorded In the last month, have you been in contact with someone who was confirmed or suspected to have Coronavirus / COVID-19? No / Unsure 06/15/2021 8:34 AM CDT documented as of this encounter Progress Notes * Micaela Khan MD - 07/05/2021 12:14 PM CDT ANESTHESIA POSTOP EVALUATION NOTE Procedure: RECONSTRUCTION OF NASAL TIP DEFECT, POSSIBLE AURICULAR CARTILAGE GRAFT (N/A Nose) Cedric Mckinney is a 85 year old male Patient Vitals for the past 6 hrs: BP Temp Pulse Resp SpO2 Pain Rating Score #1 Pain Scale/Observation 07/05/21 0733 147/90 98.3 ??F (36.8 ??C) 80 24 95 % 0 N 07/05/21 0745 152/83 -- 75 14 95 % -- -- 07/05/21 0800 150/81 -- 77 23 94 % -- -- 07/05/21 0815 141/82 -- 70 25 94 % -- -- 07/05/21 1135 138/75 98 ??F (36.7 ??C) 73 10 95 % 2 N 07/05/21 1140 136/72 -- 72 11 97 % -- -- 07/05/21 1145 142/79 -- 69 14 96 % -- -- 07/05/21 1148 -- -- -- -- -- 5 N 07/05/21 1150 (!) 143/106 -- 69 19 97 % -- -- 07/05/21 1155 144/76 -- 69 17 98 % -- -- 07/05/21 1158 -- -- -- -- -- 5 N 07/05/21 1200 146/72 -- 72 21 97 % -- -- 07/05/21 1205 147/70 -- 72 10 91 % 3 N 07/05/21 1210 146/77 -- 71 12 (!) 89 % -- -- Anesthesia Type: general ETT Pre-op Diagnosis Codes: * Melanocytic neoplasm of skin [D22.9] Mental Status: awake, alert and oriented Neuro Status: No numbness, tingling or visual disturbances Respiratory Function: natural Cardiac Function: stable Postop Pain: acceptable to the patient Postop Hydration: adequate Postop Nausea: none Assessment: no apparent anesthetic complications, patient tolerated procedure well and no evidence of recall Patient Disposition: Release from Anesthesia Care COMPLICATIONS: No complications documented. * Cheyanne Thomas MD - 06/15/2021 9:01 AM CDT Images from the original note were not included. ANESTHESIA PREOPERATIVE EVALUATION NOTE Procedure: RECONSTRUCTION OF NASAL TIP DEFECT, POSSIBLE AURICULAR CARTILAGE GRAFT (N/A Nose) Vitals: Patient Vitals for the past 6 hrs: BP Temp Pulse Resp SpO2 06/15/21 0900 143/67 97.2 ??F (36.2 ??C) 87 16 95 % ANESTHESIA PRE-EVALUATION NOTE History of Present Illness: FEI Mckinney is a 84 y.o. male who is being evaluated prior to undergoing reconstruction of nasal tip defect, possible articular cartilage graft. Patient had general anesthesia with ETT in April2021 without complications. PMH as below: Cardiovascular + Hypertension - controlled + Hyperlipidemia (statin) + CAD + CABG - Prior CABG date: 02/2015. + DVT 2006 Respiratory + COPD - emphysema. Dyspnea frequency: never at rest + Asthma Dyspnea frequency: never. Most recent exacerbation: 2014. + Lung cancer- s/p right lung radiation 2019 Gastrointestinal + GERD - on daily therapy. Other + Prostate cancer- s/p prostatectomy Functional capacity: <4 METs Comments: Patient ambulates with walker and cane 2/2 back pain, mild SOB walking a city block. Previous Airway Management: No Hx Available The patient is a current non-smoker. Physical Exam: Orientation X3 Airway/Mallampati Score: III Mouth Opening Distance: 3 fingerwidths Neck ROM: full TM Distance: < 3 FB Teeth: Other - comments (Permenant bridges.) Heart: normal - S1 S2 Lungs: clear to ausculation bilaterally Abdomen Exam: obese and soft Review of Systems: History of anesthetic complications: No Malignant Hyperthermia: No GERD: Yes (Takes omperazole), well controlled Poor Exercise Tolerance: Yes (Mild dyspnea when walking 1 city block. ) Recent Chest Pain: No Shortness of Breath: No AICD/Pacemaker: No Renal Disease: No ANESTHESIA PLAN ASA Score: 3 NPO Status: Patient instructed to be NPO after midnight Anesthesia Plan: general ETT Planned Induction: intravenous Planned Postop Destination: OPS Anesthetic plan was discussed with: patient Anesthetic Plan discussion was: Consented Use of blood products were discussed with: patient Use of blood product discussion was: Consented The patient's procedural Anesthetic Plan was discussed with the resident. BMI, Height, Weight Tobacco History Estimated body mass index is 29.98 kg/m?? as calculated from the following: Height as of this encounter: 1.753 m (5' 9 ). Weight as of this encounter: 92.1 kg (203 lb). Social History Tobacco Use Smoking Status Former Smoker Smokeless Tobacco Never Used Alcohol History Drug History Social History Substance and Sexual Activity Alcohol Use Yes Comment: nightly gin and tonic Social History Substance and Sexual Activity Drug Use No Outpatient Medications: Inpatient Medications: No outpatient medications have been marked as taking for the 06/15/21 encounter (Hospital Encounter)with [facility] PAT ROOM 1. No current facility-administered medications for this encounter. Allergies: No Known Allergies Relevant Problems No relevant active problems Problem List: Hospital Problem List None Non-Hospital Problem List None Medical History: Past Medical History: Diagnosis Date ??? Asthma never hospitalized ??? Chronic obstructive pulmonary disease (COPD) Dx 30-40 years ago; no hospitalizations; has not used rscue inhaler ??? GERD (gastroesophageal reflux disease) controlled with medication ??? Gout ??? High blood pressure controlled with medicaiton ??? High cholesterol ??? IV-hard IV stick ??? Prostate disease Surgical History: Past Surgical History: Procedure Laterality Date ??? Coronary Artery Bypass Graft ??? HX JOINT REPLACEMENT left hip 2000 ??? AZ BIOPSY OF SKIN LESION ??? AZ REPR ANOMAL CORON ART PA ORIGIN BY GRAFT 5 vessels 02/2015 Covid Vaccine: Fully vaccinated. Lab Results: No results found for requested labs within last 120 days. No results found for requested labs within last 120 days. PAT Evaluation summary: PATIENT WAS EVALUATED in PAT clinic. Cedric Mckinney is a/an 85 year old, male presenting for RECONSTRUCTION OF NASAL TIP DEFECT, POSSIBLEAURICULAR CARTILAGE GRAFT (N/A Nose) Past Medical History: Diagnosis Date ??? Asthma never hospitalized ??? Chronic obstructive pulmonary disease (COPD) Dx 30-40 years ago; no hospitalizations; has not used rscue inhaler ??? GERD (gastroesophageal reflux disease) controlled with medication ??? Gout ??? High blood pressure controlled with medicaiton ??? High cholesterol ??? IV-hard IV stick ??? Prostate disease Past Surgical History: Procedure Laterality Date ??? Coronary Artery Bypass Graft ??? HX JOINT REPLACEMENT left hip 2000 ??? AZ BIOPSY OF SKIN LESION ??? AZ REPR ANOMAL CORON ART PA ORIGIN BY GRAFT 5 vessels 02/2015 Social History Socioeconomic History ??? Marital status: Spouse name: Not on file ??? Number of children: Not on file ??? Years of education: Not on file ??? Highest education level: Not on file Occupational History ??? Not on file Tobacco Use ??? Smoking status: Former Smoker ??? Smokeless tobacco: Never Used Vaping Use ??? Vaping Use: Never used Substance and Sexual Activity ??? Alcohol use: Yes Comment: nightly gin and tonic ??? Drug use: No ??? Sexual activity: Not on file Other Topics Concern ??? Not on file Social History Narrative ??? Not on file Social Determinants of Health Financial Resource Strain: ??? Difficulty of Paying Living Expenses: Food Insecurity: ??? Worried About Running Out of Food in the Last Year: ??? Ran Out of Food in the Last Year: Transportation Needs: ??? Lack of Transportation (Medical): ??? Lack of Transportation (Non-Medical): Physical Activity: ??? Days of Exercise per Week: ??? Minutes of Exercise per Session: Stress: ??? Feeling of Stress : Social Connections: ??? Frequency of Communication with Friends and Family: ??? Frequency of Social Gatherings with Friends and Family: ??? Attends Congregational Services: ??? Active Member of Clubs or Organizations: ??? Attends Club or Organization Meetings: ??? Marital Status: Intimate Partner Violence: ??? Fear of Current or Ex-Partner: ??? Emotionally Abused: ??? Physically Abused: ??? Sexually Abused: Current Outpatient Medications on File Prior to Encounter Medication Sig Dispense Refill ??? ADVAIR DISKUS 250-50 MCG/DOSE inhaler Inhale 1 puff by mouth 2 times daily ??? albuterol HFA (PROVENTIL;VENTOLIN;PROAIR) 108 (90 Base) MCG/ACT inhaler INHALE 2 PUFFS BY MOUTHEVERY 4 HOURS NEEDED FOR SHORTNESS OF BREATH FOR 30 DAYS ??? allopurinol (ZYLOPRIM) 100 MG tablet Take 100 mg by mouth once daily ??? aspirin (ASPIRIN) 81 MG chew tablet Take 325 mg by mouth once daily ??? cephalexin (KEFLEX) 250 MG capsule Take 250 mg by mouth at bedtime ??? fesoterodine CR 24hr (TOVIAZ) 4 MG tablet Take by mouth. ??? fexofenadine (JENNIFER) 60 MG tablet Take by mouth. ??? hydroCHLOROthiazide (HYDRODIURIL) 25 MG tablet Take 25 mg by mouth once daily ??? HYDROcodone-acetaminophen (NORCO) 5-325 MG tablet Take 2 tablets by mouth every 6 hours as needed For pain. ??? omeprazole EC (PRILOSEC OTC) 20 MG tablet Take 20 mg by mouth once daily ??? simvastatin (ZOCOR) 20 MG tablet ??? sulfamethoxazole-trimethoprim (BACTRIM DS; SEPTRA DS) 800-160 MG tablet Take 1 tablet by mouth 2 times daily ??? tamsulosin (FLOMAX) 0.4 MG capsule Take 0.4 mg by mouth once daily No current facility-administered medications on file prior to encounter. No Known Allergies Lab results smartLinks are not currently available Vitals: 06/15/21 0900 BP: 143/67 Pulse: 87 Resp: 16 Temp: 97.2 ??F (36.2 ??C) SpO2: 95% Weight: 92.1 kg (203 lb) Height: 1.753 m (5' 9 ) Estimated body mass index is 29.98 kg/m?? as calculated from the following: Height as of this encounter: 1.753 m (5' 9 ). Weight as of this encounter: 92.1 kg (203 lb). SCARLET STOP-BANG Screening Snoring, daytime fatigue, observed apnea, HTN BMI >35 kg/m2 age > 50, neck circumference - For male = collar 17 inches/43 cm or larger? Female = collar 16 inches/41 cm or larger? Bold for POSITIVES Total score: 5 - 8: High risk 3 - 4: Intermediate risk 0 - 2: Low risk ___ Perioperative Cardiac Risk Stratification based on 2014 ACC/AHA Guidelines Perioperative risk of a Major Adverse Cardiac Event (MACE). Add one point for each positive RCRI (Revised Cardiac Risk Index) Is the surgery high-risk? no history of ischemic heart disease? Yes History of congestive heart failure? No History of cerebrovascular disease? no Insulin-dependent Diabetes? no Preoperative creatinine > 2 mg/dl? no RCRI correlation with MACE (www.mdcalc.com/hzlmzaj-szkniur-lkja-wmiwx-czb-uewrugcsu-risk, originally validated by Cielo Gardner. Circulation. 1999;100:7130-0648) 0 Points - 0.4% risk 1 Point - 0.9% risk 2 Points - 6.6% risk 3 or more Points - 11% risk This patient has 1 RCRI and the risk of MACE= 0.9 % Consults: Cardiology / medicine risk stratification requested: YES, cardiology clearance from Dr. Vo CIEDs Patient does not have any CIEDs (cardiovascular implantable electronic device) Anticoagulants Is patient receiving antiplatelet/ anticoagulant medications. Per primary team instruction Blood products Does this procedure have a high risk of bleeding or anticipated blood loss > 250 ml? Unlikely Previous transfusions: Yes T&S ordered prior to DOS: Yes Include H&H/platelets here Ref. Range 06/15/2021 10:10 Hemoglobin Latest Ref Range: 12.0 - 17.6 g/dL 16.2 Hematocrit Latest Ref Range: 35.2 - 51.7 % 48.4 Platelet Count Latest Ref Range: 150 - 400 10??3/uL 177 Most recent EKG- recent AK within 6 months? NO QT 396 QTc 465 Labs ordered for DOS: No Summary: Cedric Mckinney is a 85 year old male presenting for RECONSTRUCTION OF NASAL TIP DEFECT, POSSIBLE AURICULAR CARTILAGE GRAFT (N/A Nose). he has an ASA score of 3 And 1 RCRI, which correlates with a MACEscore of _0.9_%. Patient requires no further workup and has been risk stratified as medically optimized for surgery by his product management consultant. Patient will need further workup with CBC, BMP, T&S Preoperative plan and physical exam will be discussed w/ Attending in holding area. Information obtained from the patient, and chart review. Cheyanne Thomas MD 06/15/2021 9:32 AM Addendum: CBC reviewed with no findings ?? BMP reviewed with Cr at 1.54, appears consistent with labs from OSH 01/14/20 - Cr 1.6 documented in this encounter Procedure Notes * Rosaline Willingham APRN-CRNA - 07/05/2021 9:38 AM CDTAssociated Order(s): ETT Placement Endotracheal Tube Placement: Patient Location: OR. Procedure: intubation (34488). Procedure Section: Sedation: under general anesthesia. Indications for Airway Management: anesthesia Procedure pretreatments used? No Induction: standard IV Patient Position: sniffing Mask Ventilation: easy with oral airway. Blade Type: Video (trialing the Proview) Blade Size: 4 Laryngoscopy View: grade 1 (full cords) Intubation Adjuncts: video laryngoscope Tube: endotracheal tube Placement: oral Tube type: cuff - inflated Tube Size (MM): 7.5 Depth of Insertion (CM): 23 Measured From: teeth Cuff volume (mL): 5 Cuff Inflated With: air Number of Attempts: 1. Placement Verified By: direct visualization, bilateral breath sounds and CO2 monitor Tube secured with: adhesive tape. Dentition unchanged? Yes Difficult Airway? No. Staff Section Anesthesia Provider: Rosaline Willingham APRN-CRNA, Performed the procedure documented in this encounter Consult Notes * Micaela Khan MD - 07/05/2021 7:43 AM CDT ANESTHESIA PREOPERATIVE EVALUATION NOTE Procedure: RECONSTRUCTION OF NASAL TIP DEFECT, POSSIBLE AURICULAR CARTILAGE GRAFT (N/A Nose) Vitals: Patient Vitals for the past 6 hrs: BP Temp Pulse Resp SpO2 Pain Rating Score #1 07/05/21 0733 147/90 98.3 ??F (36.8 ??C) 80 24 95 % 0 PreEval ANESTHESIA PLAN ASA Score: 3 NPO Status: No solids since midnight Anesthesia Plan: general ETT Planned Induction: intravenous Planned Postop Destination: PACU Anesthetic plan was discussed with: patient Anesthetic Plan discussion was: Consented The patient's procedural Anesthetic Plan was discussed with the TOPPIECE CUTTER. BMI, Height, Weight Tobacco History Estimated body mass index is 29.73 kg/m?? as calculated from the following: Height as of this encounter: 1.753 m (5' 9 ). Weight as of this encounter: 91.3 kg (201 lb 4.8 oz). Social History Tobacco Use Smoking Status Former Smoker Smokeless Tobacco Never Used Alcohol History Drug History Social History Substance and Sexual Activity Alcohol Use Yes Comment: nightly gin and tonic Social History Substance and Sexual Activity Drug Use No Outpatient Medications: Inpatient Medications: No outpatient medications have been marked as taking for the 07/05/21 encounter (Hospital Encounter). Current Facility-Administered Medications Medication Dose Last Admin ??? 0.9% NaCl 3 mL And ??? 0.9% NaCl 1-10 mL ??? acetaminophen 1,000 mg ??? ceFAZolin 2 g ??? lactated ringers Allergies: No Known Allergies Problem List: Hospital Problem List None Non-Hospital Problem List None Medical History: Past Medical History: Diagnosis Date ??? Asthma never hospitalized ??? Atherosclerosis of coronary artery ??? Chronic obstructive pulmonary disease (COPD) Dx 30-40 years ago; no hospitalizations; has not used rscue inhaler ??? GERD (gastroesophageal reflux disease) controlled with medication ??? Gout ??? High blood pressure controlled with medicaiton ??? High cholesterol ??? IV-hard IV stick ??? Prostate disease Surgical History: Past Surgical History: Procedure Laterality Date ??? Coronary Artery Bypass Graft ??? HX JOINT REPLACEMENT left hip 2000 ??? Lithotripsy ??? AZ BIOPSY OF SKIN LESION ??? AZ REPR ANOMAL CORON ART PA ORIGIN BY GRAFT 5 vessels 02/2015 Covid Vaccine: Lab Results: Recent Labs Component Name 06/15/21 1010 WBC 7.6 RBC 5.48 HCT 48.4 HGB 16.2 PLTCOUNT 177 MCV 88.3 MCH 29.6 MCHC 33.5 MPV 10.4 Recent Labs Component Name 06/15/21 1010 ABORH O POS ABSCG NEG Recent Labs Component Name 06/15/21 1010 POTASSIUM 4.3 CALCIUM 9.7 CO2 26 GLUCOSE 110 BUN 19 CREATININE 1.54* No results found for requested labs within last 120 days. Recent Labs Result Component Current Result Anion Gap 13 (06/15/2021) eGFR by CKD-EPI 41 (L) (06/15/2021) documented in this encounter Miscellaneous Notes * Anesthesia Transfer of Care - Darrick Bello DO - 07/05/2021 11:35 AM CDT ANESTHESIA TRANSFER OF CARE NOTE Today's Date: 07/05/2021 Date of : 1935 Patient: Cedric Mckinney Procedure(s): RECONSTRUCTION OF NASAL TIP DEFECT, POSSIBLE AURICULAR CARTILAGE GRAFT Surgeon(s): Primary: Cresencio Sotelo MD Resident - Assisting: Stephany Ochoa MD Preop Diagnosis: Pre-op Diagnois: * Melanocytic neoplasm of skin [D22.9] Pre-op Meds (From admission, onward) Start Stop Status Route Frequency Ordered 07/05/21 0704 0.9% NaCl injection 1-10 mL -- Dispensed IK PRN 07/05/21 0704 07/05/21 0715 0.9% NaCl injection 3 mL -- Dispensed IK EVERY 8 HOURS 07/05/21 0704 07/05/21 0715 acetaminophen (Tylenol) tablet 1,000 mg 07/05 0849 Completed PO ONCE 07/05/21 0704 07/05/21 0934 ceFAZolin (Ancef) 2,000 mg in 50 ml IVPB -- Sent IV PRN 07/05/21 0940 07/05/21 0704 ceFAZolin (Ancef) syringe 2,000 mg -- Verified IV PRE-OP MULTIPLE 07/05/21 0704 07/05/21 0933 dexAMETHasone Sod Phosphate PF injection -- Sent IV PRN 07/05/21 0939 07/05/21 0918 etomidate (Amidate) injection -- Sent IV PRN 07/05/21 0939 07/05/21 0918 fentaNYL (PF) (Sublimaze) injection -- Sent IV PRN 07/05/21 0939 07/05/21 0715 lactated ringers infusion -- Dispensed IV PRE-OP CONTINUOUS 07/05/21 0704 07/05/21 0918 lidocaine hcl (PF) (Xylocaine MPF) 2 % injection -- Sent IV PRN 07/05/21 0939 07/05/21 0933 Ondansetron HCl (Zofran) injection -- Sent IV PRN 07/05/21 0939 07/05/21 0949 phenylephrine 100 mcg/mL injection -- Sent IV PRN 07/05/21 0949 07/05/21 0918 propofol (Diprivan) injection -- Sent IV PRN 07/05/21 0939 07/05/21 0918 rocuronium (Zemuron) injection -- Sent IV PRN 07/05/21 0939 07/05/21 112 sugammadex (Bridion) injection -- Sent IV PRN 07/05/21 1126 Post-op Diagnosis: * Melanocytic neoplasm of skin [D22.9] . No Known Allergies Vitals: No data found. Lines, Drains, and Airways Type Details Placement Removal Peripheral IV Date: 07/05/21; Time: 0810; Orientation: Distal, Posterior, Left; Location: Forearm; Gauge: 18 Gauge 07/05/21809 by Lyric Graves RN ETT Date: 07/05/21; Time: 0939; Placed By: Rosaline Willingham APRN-CHRIS; Vent: easy with oral airwaymask; Induction: Standard IV; Blade Type: Video; Blade Size: 4; Laryngoscopy View: Grade 1 (full cords); Intubation Adjuncts: Video Laryngoscope; Tube: Endotracheal Tube; Placement: Oral; Tube Type: Cuffed- inflated; Tube Size(mm): 7.5 MM; Depth of Insertion: 23 CM; Measured From: teeth; Attempts: 1; Cuff Infated: Air; Cuff Vol(mL): 5 mL; Verified By: Direct visualization, Bilateral breath sounds,CO2 Monitor 07/05/21938 by Rosaline Willingham APRN-CHRIS 07/05/211128 by Anjana Black DO Intraprocedure I/O Totals Intake lactated ringers infusion 700.00 mL Total Intake 700 mL Patient Transfer Location: PACU Transport Airway: spontaneous respirations and supplemental O2 Transport Monitoring: heart rate and continuous pulse oximetry Complications: None Comments: Awake, VSS Handoff Given? Yes Checklist or Protocol - The king handoff elements that must be included in the transfer of care checklist include: 1. Identification of patient. 2. Identification of responsible practitioner (PACU nurse or advanced practitioner). 3. Discussion of pertinent medical history. 4. Discussion of the surgical/procedure course (procedure, reason for surgery, procedure performed). 5. Intraoperative anesthetic management and issue/concerns. 6. Expectations/Plans for the early post-procedure period. 7. Opportunity for questions and acknowledgement of understanding of report from the receiving PACUteam. Darrick Bello DO documented in this encounter Plan of Treatment Not on file documented as of this encounter Procedures Procedure Name Priority Date/Time Associated Diagnosis Comments ENDOTRACHEAL TUBE NOTE Routine 07/05/2021 9:38 AM CDT documented in this encounter Results * ETT LINE PERFORMABLE (07/05/2021 9:38 AM CDT) Narrative Rosaline Willingham APRN-CRNA - 07/05/2021 9:38 AM CDT Rosaline Willingham APRN-CRNA ? 07/05/2021 ??9:39 AM Endotracheal Tube Placement: ? Patient Location: OR. Procedure: intubation (34038). Procedure Section: ?? Sedation: under general anesthesia. Indications for Airway Management: ??anesthesia Procedure pretreatments used? ??No Induction: standard IV Patient Position: ??sniffing Mask Ventilation: easy with oral airway. Blade Type: Video (trialing the Proview) Blade Size: 4 Laryngoscopy View: grade 1 (full cords) Intubation Adjuncts: video laryngoscope Tube: endotracheal tube Placement: oral Tube type: cuff - inflated Tube Size (MM): 7.5 Depth of Insertion (CM): 23 Measured From: teeth Cuff volume (mL): ??5 Cuff Inflated With: air Number of Attempts: 1. Placement Verified By: direct visualization, bilateral breath sounds and CO2 monitor Tube secured with: ??adhesive tape. Dentition unchanged? ??Yes Difficult Airway? ??No. Staff Section ?? Anesthesia Provider: Rosaline Willingham APRN-TOPPIECE CUTTER, Performed the procedure Micaela Khan MD GENERAL ANESTHESIA ORDERABLES documented in this encounter Visit Diagnoses Not on filedocumented in this encounter Administered Medications Inactive Administered Medications - up to 3 most recent administrations Medication Order MAR Action Action Date Dose Rate Site ceFAZolin (Ancef) 2,000 mg in 50 ml IVPB Intravenous, PRN, Starting on Sat07/05/21 at 0934, Until Sat07/05/21 at 1137, Anesthesia Intra-op $ Given 07/05/2021 9:34 AM CDT 2 g dexAMETHasone Sod Phosphate PF injection Intravenous, PRN, Starting on Sat07/05/21 at 0933, Until Sat07/05/21 at 1137, Anesthesia Intra-op $ Given 07/05/2021 9:33 AM CDT 4 mg etomidate (Amidate) injection Intravenous, PRN, Starting on Sat07/05/21 at 0918, Until Sat07/05/21 at 1137, Anesthesia Intra-op $ Given 07/05/2021 9:18 AM CDT 20 mg fentaNYL (PF) (Sublimaze) injection Intravenous, PRN, Starting on Sat07/05/21 at 0918, Until Sat07/05/21 at 1137, Anesthesia Intra-op $ Given 07/05/2021 10:31 AM CDT 25 mcg $ Given 07/05/2021 9:18 AM CDT 50 mcg lidocaine hcl (PF) (Xylocaine MPF) 2 % injection Intravenous, PRN, Starting on Sat07/05/21 at 0918, Until Sat07/05/21 at 1137, Anesthesia Intra-op $ Given 07/05/2021 9:18 AM CDT 100 mg Ondansetron HCl (Zofran) injection Intravenous, PRN, Starting on Sat07/05/21 at 0933, Until Sat07/05/21 at 1137, Anesthesia Intra-op $ Given 07/05/2021 9:33 AM CDT 4 mg phenylephrine 100 mcg/mL injection Intravenous, PRN, Starting on Sat07/05/21 at 0949, Until Sat07/05/21 at 1137, Anesthesia Intra-op $ Given 07/05/2021 10:12 AM CDT 100 mcg $ Given 07/05/2021 10:04 AM CDT 100 mcg $ Given 07/05/2021 9:49 AM CDT 100 mcg propofol (Diprivan) injection Intravenous, PRN, Starting on Sat07/05/21 at 0918, Until Sat07/05/21 at 1137, Anesthesia Intra-op $ Given 07/05/2021 9:18 AM CDT 50 mg rocuronium (Zemuron) injection Intravenous, PRN, Starting on Sat07/05/21 at 0918, Until Sat07/05/21 at 1137, Anesthesia Intra-op $ Given 07/05/2021 9:18 AM CDT 50 mg sugammadex (Bridion) injection Intravenous, PRN, Starting on Sat07/05/21 at 1126, Until Sat07/05/21 at 1137, Anesthesia Intra-op $ Given 07/05/2021 11:26 AM CDT 200 mg documented in this encounter Care Teams Hand Coremaker Relationship Specialty Start Date End Date Luis Fernando Vo MD [address] [place] [address] PCP - General Cardiovascular Disease 06/06/21 documented as of this encounter
--- OUTSIDE RECORDS SUMMARY | 2024-11-05 00:09 | XMS_ITS | Continuity of Care Document ---
Author Organization [facility] [place] [address] [address] [id number] Care Team Providers Care Edge Molder Name Role Phone Luis Fernando Vo Primary Care Physician Encounter [facility] Financial Number [id number] Date(s): 07/31/23 - 07/31/23 [facility] [address] [id number] Encounter Diagnosis Asthma-COPD overlap syndrome(Discharge Diagnosis) - 07/31/23 Ground glass opacity present on imaging of lung(Discharge Diagnosis) - 07/31/23 History of lung cancer(Discharge Diagnosis) - 07/31/23 Allergic rhinitis(Discharge Diagnosis) - 07/31/23 Need for vaccination(Discharge Diagnosis) - 07/31/23 Discharge Disposition: Home or Self Care Attending Physician: Susan Montiel MD Allergies, Adverse Reactions, Alerts No Known Allergies Assessment and Plan Future Appointments Appointment Date:10/22/2023 09:30:00 AM Scheduled Provider:Luis Fernando Vo M.D. Location:[place] [address] Appointment Type:ZANA GOMES Established Patient Extended Appointment Date:01/29/2024 10:00:00 AM Scheduled Provider:Susan Montiel MD Location:[facility] [address] Appointment Type:ZANA GRIGGS Established Patient Immunizations Given and Recorded Vaccine Date Status Refusal Reason SARS-CoV-2 (COVID-19) mRNA BNT-162b2 vax 08/03/22 Recorded influenza virus vaccine, inactivated 08/03/22 Graham rded influenza virus vaccine, inactivated 08/03/22 Graham rded influenza virus vaccine, inactivated 08/29/18 Graham rded influenza virus vaccine, H1N1, inactivat 07/15/17 Recorded pneumococcal 13-valent vaccine 10/14/14 Recorded Medications Advair Diskus 250 mcg-50 mcg inhalation powder See Instructions, 180 each, 3, INHALE ONE PUFF BY MOUTH TWICE A DAY, 90, Route to Pharmacy Electronically, [facility], [id number], Instructions Replace Required Details, 172.72, cm, 01/30/23 13:36:00 CDT, Height, 86.4, kg, 02/19/23 13:40:00 CDT, Weight Start Date: 06/24/23 Status: Ordered albuterol 90 mcg/inh inhaler 2 puff(s), Inhalation, [id number], PRN, 1 each, Inhaler, 3, 3, shortness of breath, Slow Breath inhaleslowly and deeply , Route to Pharmacy Electronically, [facility] [address] [facility], [id number], 175, cm, 07/25/2022 1145, Height, 97.5, kg, 07/25/2022 1145, Weight Start Date: 07/25/22 Status: Ordered allopurinol 100 mg oral tablet 1 tablet(s), Oral, daily, 90 tablet(s), 3, FOR GOUT PREVENTION., Route to Pharmacy Electronically, [facility] [address], [id number], 175, cm, 07/25/2022 1145, Height, 97.5, kg, 07/25/2022 1145, Weight Start Date: 08/06/22 Status: Ordered Arexvy preservative-free intramuscular injection 60 mcg, 0.5 mL, IntraMuscular, Once, 0.5 mL, 0, 0, Pharmacy to administer, Route to Pharmacy Electronically, [facility] [address] [place] [facility], [id number], 172.72, cm, 07/31/23 10:20:00CDT, Height, 86.81, kg, 07/31/23 10:20:00 CDT, Weight Start Date: 07/31/23 Status: Ordered aspirin 81 mg oral enteric coated tablet 81 mg, 1 tablet(s), Oral, daily, Tab EC, 0 Start Date: 11/08/17 Status: Ordered Entresto 49 mg-51 mg oral tablet 1 tablet(s), Oral, bid, 180 tablet(s), Tablet(s), 3, 3, Route to Pharmacy Electronically, [facility], [id number], 178, cm, 09/22/2022 2335, Height, 93.7, kg, 09/26/2022 0507, Weight Start Date: 10/18/22 Stop Date: 10/13/23 Status: Ordered fexofenadine 180 mg oral tablet 180 mg, 1 tablet(s), Oral, daily, 30 tablet(s), Tablet(s), 0 Start Date: 11/08/17 Status: Ordered Flomax 0.4 mg oral capsule 0.4 mg, 1 capsule(s), Oral, pm after dinner, 90 capsule(s), Capsule(s), 3, 3, Route to Pharmacy Electronically, [facility] [address] [place] [facility], [id number], 172.72, cm, 11/06/2022 1120,Height, 89.09, kg, 11/06/2022 1120, Weight Start Date: 11/09/22 Stop Date: 11/04/23 Status: Ordered Keflex 250 mg oral capsule 250 mg, 1 capsule(s), Oral, qhs, 0 Start Date: 09/26/22 Status: Ordered Lasix 40 mg oral tablet 40 mg, 1 tablet(s), Oral, daily, 90 tablet(s), Tablet(s), 3, 3, Route to Pharmacy Electronically, [facility] [address] [place] [facility], [id number], 178, cm, 09/22/2022 2335, Height, 93.7, k g, 09/26/2022 0507, Weight Start Date: 10/18/22 Stop Date: 10/13/23 Status: Ordered Metoprolol Tartrate 50 mg oral tablet 50 mg, 1 tablet(s), Oral, bid, 180 tablet(s), Tablet(s), 3, 3, Route to Pharmacy Electronically, [facility] [place] [facility], [id number], 172.72, cm, 01/30/2023 1336, Height, 86.4,kg, 02/19/2023 1340, Weight Start Date: 03/14/23 Stop Date: 03/08/24 Status: Ordered Multivitamin oral tablet 1 tablet(s), Oral, daily, 30 tablet(s), 0 Start Date: 11/12/12 Status: Ordered omeprazole 20 mg oral delayed release capsule 1 capsule(s), Oral, daily, 90 capsule(s), 3, Route to Pharmacy Electronically, [facility] [address], [id number], 178, cm, 09/22/2022 2335, Height, 93.7, kg, 09/26/2022 0507, Weight Start Date: 10/01/22 Status: Ordered Potassium Chloride (Eqv-K-Tab) 10 mEq oral tablet, extended release 10 mEq, 1 tablet(s), Oral, bid, 180 tablet(s), 3, 3, Route to Pharmacy Electronically, [facility], [id number], 172.72, cm, 11/06/2022 1120, Height, 89.09, kg, 11/06/2022 1120, Weight Start Date: 11/09/22 Stop Date: 11/04/23 Status: Ordered predniSONE 10 mg oral tablet Taper from 40 mg q3day by 10 mg till off, Oral, daily, 30 tablet(s), 0, 0, Route to Pharmacy Electronically, [facility] [place] [facility], [id number], 172.72, cm, 01/30/23 13:36:00CDT, Height, 86.4, kg, 02/19/23 13:40:00 CDT, Weight Start Date: 07/02/23 Stop Date: 07/14/23 Status: Ordered prochlorperazine 10 mg oral tablet 10 mg, 1 tablet(s), Oral, [id number], PRN, 30 each, Tablet(s), 1, 1, nausea, Route to Pharmacy Electronically, [facility] [address] [place] [facility], [id number], 172.72, cm, 11/06/2022 1120, Height, 89.09, kg, 11/06/2022 1120, Weight Start Date: 11/06/22 Stop Date: 01/05/23 Status: Ordered rosuvastatin 20 mg oral tablet 1 tablet(s), Oral, HS, 90 tablet(s), 3, Route to Pharmacy Electronically, [facility], [id number], 172.72, cm, 01/30/23 13:36:00 CDT, Height, 86.4, kg, 02/19/23 13:40:00CDT, Weight Start Date: 06/10/23 Status: Ordered Problem List Condition Confirmation Course Effective Dates Status H ealth Status Informant Allergic rhinitis Confirmed Active Asthma Confirmed Active Asthma-COPD overlap syndrome Confirmed Active ASHD (arteriosclerotic heart disease) I25.10 Confirmed Active COPD (chronic obstructive pulmonary disease) Confirmed Active Acute exacerbation of chronic obstructive airways disease J44.1 Confirmed Active COPD (chronic obstructive pulmonary disease) J44.9 Confirmed Active 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 HTN (hypertension) I10 Confirmed [...] J45.909 Confirmed Active Urinary incontinence Confirmed Active Need for vaccination Confirmed Active 1frequency Procedures Procedure Date Related Diagnosis Body Site Status 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 Completed CE - Cataract extraction Completed Hip arthroplasty 2 Comple chiara lumbar back surg 04/2010 C ompleted Prostate implantation Com pleted 13100 2left Vital Signs Most recent to oldest [Reference Range]: 1 Peripheral Pulse Rate [60-100 bpm] 55 bp m *L* (07/31/23 10:20 AM) Blood Pressure [89-139/60-90 mm Hg] 124/ 62mm Hg (07/31/23 10:20 AM) Oxygen Flow Rate 0 L/min (07/31/23 10:20 AM) Height 172.72 cm (07/31/23 10:20 AM) Weight 86.81 kg (07/31/23 10:20 AM) Social History Social History Type Response [...] Date:09/28/22 End Date: Status:Met Progression:Met Note * Gina Portillo RN: PERFORM Event Display: In Office Test Results Authored Date: [id number] * Tomy Hernandez Health Castings Trimmer: PERFORM Event Display: ROI_Correspondence Authored Date: [id number] * Event Display: ROI_Correspondence * Event Display: ROI_Correspondence * Event Display: ROI_Correspondence Patient Care team information Care Team Personnel Name: Abena Saldaña RN Lung Screening Coordinator Position: Population Health Coordinator Member Role: Population Health Coordinator Name: Jeremie Mujica M.D. Position: Physician - Cardiology Member Role: Animal Caretaker Supervisor Heart Failure Address: Address: [address] [place] [phone] [place] Name: Mindi Ma Core Cleaner Position: Population Health Coordinator Technology Manager Member Role: Population Health Coordinator Name: Garland aHywood MD Position: Physician - Electrophysiology Member Role: Specialist Physician Address: Address: [address] [place] [address] [address] [place] [address] Name: Veronika Odonnell RN Position: AMB ONC Nurse Navigator Member Role: Nurse Navigator Name: Luis Fernando Vo M.D. Position: Physician - Cardiology Member Role: Primary Care Physician Address: Address: [address] [place] [address] [address] Name: Laila Burch RN Outpatient Assembler Final Position: OP Assembler Final Brand Advisor Member Role: Assembler Final Name: Bronson Vaca SENIOR DATA DEVELOPER Position: AMB ONC SENIOR DATA DEVELOPER Member Role: Nurse Practitioner Address: Address: [address] [place] [address] Name: Lucas Damon Content Checker Position: AMB ONC CPM/MA/RN Member Role: Nurse Navigator Name: Susan Montiel MD Position: Physician - Pulmonology Med Service: Manager It Security Edge Molder Role: Attending Physician Address: Address: [address] [place] [address] [address] Care Team Related Persons Name: BRANDY SMALL Address: [address] [id number]
--- OUTSIDE RECORDS SUMMARY | 2024-11-05 00:09 | XMS_ITS | Encounter Summary ---
Author Organization [facility] Address [address] [place] [address] Care Team Providers Care Licensed Audiologist Name Role Phone Luis Fernando Vo MD Primary Care Provider [phone] Reason for Visit * Reason Onset Date Comments Question 08/01/2021 pop questions Encounter Details Date Type Department Care Team (Late st Contact Info) Description 08/01/2021 Telephone [facility] [address] [facility], [address] [place] [address] Suzi Vo LPN Question (pop questions) Social History Tobacco Use Types Packs/Day Years Used Date Smoking Tobacco: Former Smokeless Tobacco: Never Alcohol Use Standard Drinks/Week Comments Yes 0 (1 standard drink = 0.6 oz pur e alcohol) nightly gin and tonic Sex and Gender Information Value Date Recorded Sex Assigned at Not on file Gender Identity Not on file Sexual Orientation Not on file documented as of this encounter Functional Status Functional Status Response Date of Assess ment Is person deaf or have serious hearing difficult y? Yes 07/05/2021 Is person blind or have serious difficulty seein g? No 07/05/2021 Does person have serious dif ficulty walking/climbing stairs? Yes 07/05/2021 Does person have difficulty dressing/bathing? No 07/05/2021 Does person have difficulty doing errands alone? No 07/05/2021 Cognitive Status Response Date of Assessm ent Does person have difficulty concentrating/remembering/making decisions? No 07/05/2021 documented as of this encounter Patient Instructions * Patient Instructions* Suzi Vo LPN - 08/01/2021 1:27 PM CDT Mr. Mckinney had post operative concerns regarding operative site, but questions were answered by Dr. Sotelo, told it would be okay and to follow up in office on August [address] Sotelo. Mr. Mckinney wassatisfied with this decision, will call if he has any other concerns. documented in this encounter Plan of Treatment Not on file documented as of this encounter Visit Diagnoses Not on filedocumented in this encounter Care Teams Licensed Audiologist Relationship Specialty Start Date End Date Luis Fernando Vo MD [address] [address] PCP - General Cardiovascular Disease 06/06/21 documented as of this encounter
--- OUTSIDE RECORDS SUMMARY | 2024-11-05 00:09 | XMS_ITS | Encounter Summary ---
Author Organization [employer] [facility] Address [address] [place] [address] Care Team Providers Care Chief Of Service Name Role Phone Luis Fernando Vo MD Primary Care Provider [phone] Reason for Visit * Auth/Cert Specialty Diagnoses / Procedures Referred By Carlyn t Referred To Contact Diagnoses Melanocytic neoplasm of skin MELANOCYTIC NEOPLASM Procedures RECONSTRUCTION/REPAIR NASAL Referral ID Status Reason Start Date Expiration Date Visits Re quested Visits Authorized [id number] 1 1 Encounter Details Date Type Department Care Team (Late st Contact Info) Description 07/05/2021 9:15 AM CDT - 07/05/2021 11:50 AM CDT Surgery [facility] [address] [place] [address] Cresencio Sotelo MD [address] [place] [address] RECONSTRUCTION OF NASAL TIP DEFECT, POSSIBLE AURICULAR CARTILAGE GRAFT Surgery Details Date/Time Status Location OR Service Patient Class Case Class Case Type Trauma Case? 07/05/2021 9:15 AM Posted [facility] [employer] [facility] OR OR 04 ENT Surgery Day Care Panel 1 Procedure LRB Anes Op Region Wound Class Comments RECONSTRUCTION OF NASAL TIP DEFECT, POSSIBLE AURICULAR CARTILAGE GRAFT N/A General Nose Clean Contaminated Surgeon Surgeon Role Service Panel Cresencio Sotelo MD Primary ENT 1 Stephany Ochoa MD Resident - Assisting Plastics 1 Special Needs Supine,DS 07/03 documented in this encounter Social History Tobacco [...] AM CDT documented as of this encounter Last Filed Vital Signs Vital Sign Reading Time Taken Comments Blood Pressure 143/106 07/05/2021 11:50 AM CDT Pulse 69 07/05/2021 11:50 AM CDT Temperature 36.7 ??C (98 ??F) 07/05/2021 11:35 AM CDT Respiratory Rate 19 07/05/2021 11:50 AM CDT Oxygen Saturation 97% 07/05/2021 11:50 AM CDT Inhaled Oxygen Concentration - - Weight 91.3 kg (201 lb 4.8 oz) 07/05/2021 7:19 A M CDT Height 175.3 cm (5' 9 ) 07/05/2021 7:19 AM CDT Body Mass Index 29.73 07/05/2021 7:19 AM CDT documented in this encounter Functional Status Functional Status Response [...] No 07/05/2021 documented as of this encounter Discharge Instructions * Discharge Instructions* Lyric Graves RN - 07/05/2021 12:56 PM CDT Otolaryngology Discharge Instructions Disposition: Home Diet: Regular Diet Activity:Okay to resume light activity tomorrow. Avoid activities that may increase your blood pressure. Wound care: - It is ok to shower after 24 hours, avoid direct water over your incisions or the yellow bolster which is sutured in place. - The bolster will be removed when you follow up in clinic in 1 week. - Apply bacitracin ointment to the incision and the top of the yellow bolster 2- 3 times daily, until you follow up with Dr. Sotelo. - It is expected that you may develop significant facial swelling and or bruising over the next 2 days. To help with this, sleep with head of bed elevated or with multiple pillows or in a recliner. Pain control: - Please use tylenol and or ibuprofen for pain control as needed, unless someone has previously told you to avoid these medications. Follow up: Please call Dr. Sotelo's office to schedule an appointment for 07/11/21 Follow-up Information Cresencio Sotelo MD . Specialty: Otolaryngology Why: Please call Dr. Sotelo's office to schedule a follow up appointment for 07/11/21 Contact information: [address] DEPT OF OTOLARYNGOLOGY [facility] [address] Other Instructions: Should you experience any of these symptoms... -Fever over 102 degrees. -Persistent pain, nausea, or vomiting. -Persistent bleeding. -Shortness of breath. -Significant redness or drainage from your incision. -Any other questions or concerns. ...During business hours call: [phone] ...On nights or weekends call: [phone], ask for the ENT resident hat cone inspector. General Postsurgical Instructions You may expect to feel dizzy, weak, and drowsy for as long as 24 hours after receiving the medicinethat made you sleep (anesthetic). The following information pertains to your recovery period for the first 24 hours followingsurgery. Do not drive a car, ride a bicycle, participate in physical activities, or take public transportation until you are done taking narcotic pain medicines or as directed by your caregiver. Do not drink alcohol or take tranquilizers. Do not take medicine that has not been prescribed by your caregiver. Do not sign important papers or make important decisions while on narcotic pain medicines. Have a responsible person with you. CARE OF INCISION Change bandages (dressings) as directed. Take showers instead of baths until your caregiver gives you permission to take baths. Check with your caregiver if you have tubes coming from the wound site. Avoid heavy lifting (more than 10 pounds/4.5 kilograms), pushing, or pulling. Avoid activities that may risk injury to your surgical site. Only take xkga-lgu-zncsche or prescription medicines for pain, discomfort, or fever as directed by your caregiver. Do not take aspirin. It can make you bleed. SEEK MEDICAL CARE IF: You feel sick to your stomach (nauseous). You start to throw up (vomit). You have trouble eating or drinking. You have an oral temperature above 102?? F (38.9?? C). You have constipation that is not helped by adjusting diet or increasing fluid intake. Pain medicines are a common cause of constipation. SEEK IMMEDIATE MEDICAL CARE IF: You have persistent dizziness. You have difficulty breathing. You have an oral temperature above 102?? F (38.9?? C), not controlled by medicine. There is increasing pain or tenderness near or in the surgical site. Document Released: 02/09/2004 Document Re-Released: 01/15/2011 ExitCare?? Patient Information ??2011 [employer]. documented in this encounter Medications at Time of Discharge Medication Sig Dispensed Refills Start Date End Date ADVAIR DISKUS 250-50 MCG/DOSE inhaler Inhale 1 puff by mouth 2 times daily 02/15/2021 allopurinol (ZYLOPRIM) 100 MG tablet Take 100 mg by mouth once daily aspirin (ASPIRIN) 81 MG chew tablet Take 325 mg by mouth once daily cephalexin (KEFLEX) 250 MG capsule Take 250 mg by mouth at bedtime 04/20/2021 fesoterodine CR 24hr (TOVIAZ) 4 MG tablet Take by mouth. 07/16/2017 fexofenadine (JENNIFER) 60 MG tablet Take by mouth. 07/16/2017 hydroCHLOROthiazide (HYDRODIURIL) 25 MG tablet Take 25 mg by mouth once daily omeprazole EC (PRILOSEC OTC) 20 MG tablet Take 20 mg by mouth once daily saline nasal spray (OCEAN; BABY AYR) 0.65 % nasal spray Stinnett 2 (two) sprays into each nostril 4 times daily as needed for Dry Nose 07/05/2021 simvastatin (ZOCOR) 20 MG tablet 06/04/2017 tamsulosin (FLOMAX) 0.4 MG capsule Take 0.4 mg by mouth once daily albuterol HFA (PROVENTIL;VENTOLIN;PRO AIR) 108 (90 Base) MCG/ACT inhaler INHALE 2 PUFFS BY MOUTH EVERY 4 HOURS NEEDED FOR SHORTNESS OF BREATH FOR 30 DAYS 06/01/2020 07/18/2021 documented as of this encounter Progress Notes * Lyric Graves RN - 07/05/2021 1:28 PM CDT Discharge instructions discussed with patient and patient's , and both verbalized understanding. 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 Now with Lentiginous melanocytic proliferation on the nasal tip, uncertain if this is reoccurrence vs new lesion. He has undergone staged excision with Mohs, margins are negative as detailed below. He presents today for reconstruction of the nasal tip defect and possible cartilage graft with Dr. Sotelo. PAST MEDICAL HISTORY (PMH): Major Medical Past Medical History: Diagnosis Date ??? Asthma never hospitalized ??? Chronic obstructive pulmonary disease (COPD) Dx 30-40 years ago; no hospitalizations; has not used rscue inhaler ??? GERD (gastroesophageal reflux disease) controlled with medication ??? Gout ??? High blood pressure controlled with medicaiton ??? High cholesterol ??? IV-hard IV stick ??? Prostate disease Surgical Past Surgical History: Procedure Laterality Date ??? Coronary Artery Bypass Graft ??? HX JOINT REPLACEMENT left hip 2000 ??? GA BIOPSY OF SKIN LESION ??? GA REPR ANOMAL CORON ART PA ORIGIN BY GRAFT 5 vessels 02/2015 Family Family History Problem Relation Name Age of Onset ??? Cancer Mother breast ??? Hypertension Mother Social History Tobacco Use ??? Smoking status: Former Smoker ??? Smokeless tobacco: Never Used Substance Use Topics ??? Alcohol use: Yes Comment: nightly gin and tonic MEDICATIONS No current facility-administered medications for this encounter. Current Outpatient Medications Medication Sig Dispense Refill ??? ADVAIR DISKUS [...] 25 mg by mouth once daily ??? omeprazole EC (PRILOSEC OTC) 20 MG tablet Take 20 mg by mouth once daily ??? simvastatin (ZOCOR) 20 MG tablet ??? tamsulosin (FLOMAX) 0.4 MG capsule Take 0.4 mg by mouth once daily REVIEW OF SYSTEMS 11 point review of systems was obtained and is negative except for as noted in the HPI and per medical logistics specialist notes PHYSICAL EXAM There were no vitals taken for this visit. General: NAD HEENT: Eyes: EOMI Ears: Normal landmarks, atraumatic Nose: nasal tip with central island of skin with residual melanocytic proliferation. Sutures in place Oral Cavity, Oropharynx: moist mucosa, uvula midline Dental: Age appropriate dentition Laryngopharynx by mirror: deferred Neck: No appreciable LAD Cardiovascular: Warm and well perfused, regular rate and rhythm Respiratory: unlabored breathing bilaterally Neuro/Psych: CN II-XII intact bilaterally RADIOLOGY No new imaging to review PATHOLOGY nal Diagnosis Specimen A. SKIN, nasal tip, 12-3 o'clock margin: SOLAR ELASTOSIS (L57.8) (see microscopic description) Final Diagnosis Specimen A. SKIN, nasal tip 12-3 o'clock: MELANOCYTIC HYPERPLASIA (D48.5) (see microscopic description and comment) ?? Specimen B. SKIN, nasal tip 3-6 o'clock: SOLAR ELASTOSIS (L57.8) (see microscopic description) ?? Specimen C. SKIN, nasal tip 6-7 o'clock: SOLAR ELASTOSIS (L57.8) (see microscopic description) ?? Specimen D. SKIN, nasal tip 7-9 o'clock: SOLAR ELASTOSIS (L57.8) (see microscopic description) ?? Specimen E. SKIN, nasal tip 9-12 o'clock: SOLAR ELASTOSIS (L57.8) (see microscopic description) ?? Specimen F. SKIN, nasal tip debulk: MELANOMA IN SITU, LENTIGINOUS TYPE (D03.39) (see microscopic description PLAN OF CARE - To the OR for completion excision of central island lesion, reconstruction of the nasal tip defect, possible auricular cartilage graft, possible skin graft - Risks, benefits, and alternatives discussed with patient and they elect to proceed. - Consent to be obtained. - antibiotics prior to incision Resident signature: Stephany Ochoa MD documented in this encounter OR Notes * Operative - Cresencio Sotelo MD - 07/05/2021 9:49 AM CDT OPERATIVE REPORT NAME: Cedric Mckinney : 1935 CSN: [id number] DATE OF OPERATION: 07/05/2021 ATTENDING SURGEON: Cresencio Sotelo MD Pre-Op Diagnosis: -Cutaneous melanocytic proliferation, recurrent Post-Op Diagnosis: -Nasal tip defect Procedure: -Locoregional flap for nasal tip reconstruction -Full thickness skin graft, 1cm -Dorsal hump reduction -Wound prep Student Finance Advisor Stephany Ochoa MD Indications for procedure: Cedric Mckinney is a 85 year old male with a history of skin malignancy with the diagnosis above. He had the same diagnosis in 2016 that was treated with staged excision. This is likely a recurrence. He was referred back to the Mohs surgeon for slow-Mohs technique. After his margins were negative, hepresented today for scheduled reconstruction. Prior to the surgery, we had a consultation in the off ice regarding reconstruction options. We discussed that given this is a recurrence, and he had previous reconstruction in this area, he is at high risk for wound healing complications. He decided to proceed. Details of Procedure: After the patient was identified in the preoperative holding area, He was transported to the operating room. Upon arrival in the OR, the patient and intended procedure were reviewed. He was placed elda supine position on the table. The patient was intubated by Anesthesia and the table was turned 90-180 degrees. The eyes were protected. The patient was examined. All planned incisions were marked. Lidocaine 1% with 1:100,000 epinephrine was injected into the incision sites. The patient was prepped and draped in the usual sterile manner. First, we resected the residual melanoma. This was marked at the dorsum with a long stitch and right ala with a short stitch. The resection went down to the domal cartilages. The defect left behind was examined. It measured 2.4 cm tall and 2.1 cm wide, spherical, at the nasal tip extending into thecolumella by 1cm. The patient's nasal subunits were outlined. The glabellar rhytids were outlined. A dorsal nasal flap was marked out extending from the glabellar rhytids down the right side of the nose at the sidewall-cheek junction. The incisions were made sharply. The flap was raised off the nose in the pre-perichondrial plane. A small dorsal hump at the cartilaginous dorsum and upper lateral cartilages was reduced to allow increased reach of the flap. The upper lateral cartilages were closed to the septum with 5-0 PDS. The elevation extended toward the left medial canthus. Bleeding was controlled with bipolar cautery. The donor site at the glabella was closed with 5-0 monocryl and 5-0 prolene. The flap was rotated inferiorly. The soft tissue envelope was elevated over the nasal tip. The flap was secured with 5-0 monocryl and 5-0 fast. The extra skin from the glabellar donor site was trimmed and de-fatted for a full thickness skin graft. This was used to cover the columella defect. A standing cone deformity wasremoved from the base of the flap at the left nasal supratip. The skin graft was bolstered with a xeroform dressing. The nose was dressed with antibiotic ointment Estimated Blood Loss: 50mL Complications: None apparent. Condition: Stable I was present and performed all critical portions of the surgery. Cresencio Sotelo MD Knit Tubing Dyer Facial Plastic and Reconstructive Surgery Otolaryngology- Head and Neck Surgery documented in this encounter Plan of Treatment Not on file documented as of this encounter Procedures Procedure Name Priority Date/Time Associated Diagnosis Comments CARDIAC EKG ORDER 07/07/2021 1:0 8 PM CDT PATHOLOGY TISSUE Routine 07/05/2021 10:0 1 AM CDT Melanocytic neoplasm of skin RECONSTRUCTION/RE PAIR NASAL 07/05/2021 9:49 AM CDT Melanocytic neoplasm of skin Special Needs Supine,DS 07/03 documented in this encounter Results * CARDIAC EKG ORDER (07/07/2021 1:08 PM CDT) Narrative 07/07/2021 1:08 PM CDT Ordered by an unspecified provider. Scanned Document CARDIAC SERVICES ORD ERABLES * PATHOLOGY TISSUE (07/05/2021 10:01 AM CDT) Case Report Surgical Pathology Report ? Case: [id number] ? Authorizing Provider: ??Cresencio Sotelo MD ? Collected: ? 07/05/2021 10:01 AM ? Ordering Location: ? [facility] ?Received: ?07/05/2021 01:32 PM ? Pathologist: ? Macie Vo MD ? Specimen: ?Skin, COMPLETION RESECTION NASAL TIP (LONG STITCH TOWARDS DORSUM, SHORT STITCH ? TOWARDS ALA) ? 07/19/2021 10:16 AM [facility] Final Diagnosis Skin, nasal tip, long stitch dorsum, short stitch ala, oriented completion resection (A): - Melanocytic hyperplasia without atypia, associated with scar; all margins free of melanocytic hyperplasia (see description) 07/19/2021 10:16 AM [facility] Microscopic Description and Comment Microscopic examination substantiates the final diagnosis. The skin has melanocytic hyperplasia and actinic keratoses surrounding the prior biopsy site scar. The melanocytic hyperplasia consists of basal melanocytes without atypia and without extended confluence. There is no theque formation, no upward migration off the basal layer, and no involvement of deeper adnexal structures by the H and E stain and by the MART1/MelanA stain (A2, A3, A4; controls stained appropriately). No xlipxgqt-rn-bekl or melanoma is seen. The melanocytic hyperplasia is 6 mm from the 12:00 margin, 2 mm from the 3:00 margin, 1 mm from the 6:00 margin, and 2 mm from the 9:00 margin, measured using the MART1/MelanA and H and E stains. The 3:00 tip has scar. The dermis has marked solar elastosis. 07/19/2021 10:16 AM [facility] Clinical History The patient is an 85-year-old male with a history of melanoma first diagnosed in 2016 status post staged excision. Patient was referred for slow-Mohs technique ([id number], 06/20/21; [id number], 06/29/21) with final margins negative for lentiginous phhnyxdl-kb-sjyv. The current procedure is for reconstruction. 07/19/2021 10:16 AM [facility] Gross Description The requisition and specimen(s) are identified with the patient's name, Cedric Mckinney. Received in formalin, specimen A , is an oriented, light gan, hair bearing skin excision 2.0 x 1.8 cm excised to a depth of 0.8 cm, oriented with a long stitch at dorsum and a short stich at ala. The skin surface has a 1.1 x 0.2 linear scar 1.2 cm away from 12:00 1.0 cm from three 0.5 from 6:00 and 0.6 from 9:00. The long stitch is designated 12:00 and the short stitch is designated 9:00. The peripheral contour of the resection is curvilinear from 6-9. Specimen is inked as follows: 12-3 green, 3-6 blue, 6-9 black, 9-12 red. Sectioning shows bocanegra-gan cut surfaces with no discrete lesion. The specimen is entirely and sequentially submitted from 9:00 to 3:00 as follows: A1 9:00, perp, A2-A4 central, A5 3:00, perp. CP 07/19/2021 10:16 AM [facility] Disclaimer The performance characteristics of all immunohistochemical and indirect immunofluorescence stains (if any) cited in this report were determined by the Histopathology Laboratory of [facility]. Some of these tests were developed by our own laboratory and have not been cleared or approved by the [place] Food and Drug Administration. The FDA does not require this test to go through premarket FDA review. These tests are used for clinical purposes. They should not be regarded as investigational or for research. This laboratory is certified under the Clinical Laboratory Improvement Amendments (CLIA) as qualified to perform high complexity clinical laboratory testing. This case has been personally reviewed and interpreted by the attending (teaching) pathologist. 07/19/2021 10:16 AM CDT [facility] Embedded Images 07/19/2021 10:16 AM CDT [facility] Biopsy, Excision TISSUE SPECIMEN FROM SKIN / Unknown 07/05/2021 10:01 AM CDT 07/05/2021 1:32 PM CDT Comment:Pre-op diagnosis: MELANOCYTIC NEOPLASM Cresencio Sotelo MD LAB - PATHOLOGY/CYTO LOGY ORDERABLES [facility] [address] [phone] documented in this encounter Visit Diagnoses Diagnosis Melanocytic neoplasm of skin Melanocytic neoplasm of skin documented in this encounter Administered Medications Inactive Administered Medications - up to 3 most recent administrations Medication Order MAR Action Action Date Dose Rate Site 0.9% NaCl injection 1-10 mL 1-10 mL, Intracatheter, PRN, Other, peripheral line flush, Starting on Sat07/05/21 at 0704, Until Sat07/05/21 at 1440, Flush peripheral IV catheter with 1-10 mL of normal saline before and after medications and prn to clear blood from the line or to verify patency., Pre-op 0.9% NaCl injection 3 mL 3 mL, Intracatheter, EVERY 8 HOURS, First dose on Sat07/05/21 at 0715, Until Discontinued, Flush peripheral IV catheter with 3 mL of normal saline every 8 hours., Pre-op acetaminophen (Tylenol) tablet 1,000 mg 1,000 mg, Oral, ONCE, 1 dose, On Sat07/05/21 at 0715, Pre-op $ Given 07/05/2021 8:49 AM CDT 1,000 mg bacitracin topical ointment PRN, Starting on Sat07/05/21 at 1126, Until Sat07/05/21 at 1134, Intra-op $ Given 07/05/2021 11:26 AM CDT 1 packet Operative Site bss ophthalmic solution PRN, Starting on Sat07/05/21 at 1112, Until Sat07/05/21 at 1134, Intra-op $ Given 07/05/2021 11:12 AM CDT 2 mL Operative Site ceFAZolin (Ancef) syringe 2,000 mg 2,000 mg (2 g), Intravenous, PRE-OP MULTIPLE, Starting on Sat07/05/21 at 0704, Until Sat07/05/21 at 1440, Administer 30 minutes prior to surgical incision. Administer over 3-5 minutes., Indication for anti-infective therapy: Surgical prophylaxis, Pre-op fentaNYL (PF) (Sublimaze) injection 50 mcg 50 mcg, Intravenous, EVERY 10 MIN PRN, Moderate Pain, 4 doses, Starting on Sat07/05/21 at 1140, Until Sat07/05/21 at 1440, Maximum total of 4 doses. If patient reaches max total dose, please consult anesthesiologist prior to further administration of pain meds. Hold pain meds if there are signs of hypoventilation., PACU $ Given 07/05/2021 11:58 AM CDT 50 mcg $ Given 07/05/2021 11:48 AM CDT 50 mcg lactated ringers infusion at 20 mL/hr, Intravenous, PRE-OP CONTINUOUS, Starting on Sat07/05/21 at 0715, Until Sat07/05/21 at 1440, Pre-op $ New Bag/Syringe 07/05/2021 8:10 AM CDT 20 mL/hr lidocaine 1% (Xylocaine-MPF) - EPINEPHrine 1:100,000 injection PRN, Starting on Sat07/05/21 at 0938, Until Sat07/05/21 at 1134, Intra-op $ Given 07/05/2021 9:38 AM CDT 5 mL Operative Site ondansetron (Zofran) injection 4 mg 4 mg, Intravenous, ONCE PRN, Nausea/Vomiting, 1 dose, Starting on Sat07/05/21 at 1140, Until Sat07/05/21 at 1142, First choice, PACU $ Given 07/05/2021 11:42 AM CDT 4 mg documented in this encounter Active and Recently Administered Medications Times are shown in CDT. Scheduled Medication Order 07/03/2021 07/04/2021 07/05/2021 0.9% NaCl injection 3 mL(Linked Group 1) 3 mL, Intracatheter, EVERY 8 HOURS, First dose on Sat07/05/21 at 0715, Until Discontinued, Flush peripheral IV catheter with 3 mL of normal saline every 8 hours., Pre-op 0715 (Due) acetaminophen (Tylenol) tablet 1,000 mg (COMPLETED) 1,000 mg, Oral, ONCE, 1 dose, On Sat07/05/21 at 0715, Pre-op 0849 ($ Given - Prov ider: Lyric Graves RN - Comment: ordered preop) albuterol (Proventil;Ventolin) (5 MG/ML) 0.5% nebulizer solution 2.5 mg 2.5 mg, Inhalation, POST-OP MULTIPLE, Starting on Sat07/05/21 at 1140, Until Sat07/05/21 at 1440, For wheezing. Notify anesthesia immediately., PACU ceFAZolin (Ancef) syringe 2,000 mg 2,000 mg (2 g), Intravenous, PRE-OP MULTIPLE, Starting on Sat07/05/21 at 0704, Until Sat07/05/21 at 1440, Administer 30 minutes prior to surgical incision. Administer over 3-5 minutes., Indication for anti-infective therapy: Surgical prophylaxis, Pre-op hydrALAZINE (Apresoline) injection 5 mg 5 mg, Intravenous, POST-OP MULTIPLE, Starting on Sat07/05/21 at 1140, Until Sat07/05/21 at 1440, IV given slowly over 1 minute, up to 20 mg. Repeat 5 mg IV dose every 10-15 minutes for sustained hypertension SBP greater than 180, DBP greater than 100., PACU labetalol (Normodyne; Trandate) injection 5 mg 5 mg, Intravenous, POST-OP MULTIPLE, Starting on Sat07/05/21 at 1140, Until Sat07/05/21 at 1440, IV given slowly over 1 minute up to 20 mg. Repeat every 10-15 minutes in 5 mg doses. Hold if heart rate is less than 60. Give for hypertension SBP greater than 180, DBP greater than 100., PACU naloxone (Narcan) injection 0.04 mg 0.04 mg, Intravenous, POST-OP MULTIPLE, Starting on Sat07/05/21 at 1140, Until Sat07/05/21 at 1440, Notify physician immediately, and mix 0.4 mg Naloxone in 9 mL Normal Saline for slow IV push. Administer dilute Naloxone solution IV very slowly (1 mL over 30 seconds) while observing the patient response and titrating to effect. If no response, call Rapid Response, continue IV Naloxone at the same rate up to a total of 0.8 mg of diluted Naloxone., PACU Continuous Medication Order 07/03/2021 07/04/2021 07/05/2021 lactated ringers infusion at 20 mL/hr, Intravenous, PRE-OP CONTINUOUS, Starting on Sat07/05/21 at 0715, Until Sat07/05/21 at 1440, Pre-op 0810 ($ New Bag/Syri nge - Provider: Lyric Graves RN - Comment: barcode would not scan)1132 (Stopped - Provider: Anjana Black DO) lactated ringers infusion at 50 mL/hr, Intravenous, CONTINUOUS, Starting on Sat07/05/21 at 1145, Until Sat07/05/21 at 1440, PACU 1145 (Due) PRN Medication Order 07/03/2021 07/04/2021 07/05/2021 0.9% NaCl injection 1-10 mL(Linked Group 1) 1-10 mL, Intracatheter, PRN, Other, peripheral line flush, Starting on Sat07/05/21 at 0704, Until Sat07/05/21 at 1440, Flush peripheral IV catheter with 1-10 mL of normal saline before and after medications and prn to clear blood from the line or to verify patency., Pre-op bacitracin topical ointment (CANCELED) PRN, Starting on Sat07/05/21 at 1126, Until Sat07/05/21 at 1134, Intra-op 1126 ($ Given - Prov ider: Cresencio Sotelo MD) bss ophthalmic solution (CANCELED) PRN, Starting on Sat07/05/21 at 1112, Until Sat07/05/21 at 1134, Intra-op 1112 ($ Given - Prov ider: Cresencio Sotelo MD) fentaNYL (PF) (Sublimaze) injection 25 mcg 25 mcg, Intravenous, EVERY 10 MIN PRN, Mild Pain, 4 doses, Starting on Sat07/05/21 at 1140, Until Sat07/05/21 at 1440, Maximum total of 4 doses. If patient reaches max total dose, please consult anesthesiologist prior to further administration of pain meds. Hold pain meds if there are signs of hypoventilation., PACU fentaNYL (PF) (Sublimaze) injection 50 mcg 50 mcg, Intravenous, EVERY 10 MIN PRN, Moderate Pain, 4 doses, Starting on Sat07/05/21 at 1140, Until Sat07/05/21 at 1440, Maximum total of 4 doses. If patient reaches max total dose, please consult anesthesiologist prior to further administration of pain meds. Hold pain meds if there are signs of hypoventilation., PACU 1148 ($ Given - Prov ider: Janette Andres RN)1158 ($ Given - Provider: Janette Andres RN) HYDROmorphone (Dilaudid) injection 0.2 mg 0.2 mg, Intravenous, EVERY 10 MIN PRN, Severe Pain, 4 doses, Starting on Sat07/05/21 at 1140, Until Sat07/05/21 at 1440, Maximum total of 4 doses If patient reaches max total dose, please consult anesthesiologist prior to further administration of pain meds. Hold pain meds if there are signs of hypoventilation., PACU lidocaine 1% (Xylocaine-MPF) - EPINEPHrine 1:100,000 injection (CANCELED) PRN, Starting on Sat07/05/21 at 0938, Until Sat07/05/21 at 1134, Intra-op 0938 ($ Given - Prov ider: Cresencio Sotelo MD) ondansetron (Zofran) injection 4 mg (COMPLETED) 4 mg, Intravenous, ONCE PRN, Nausea/Vomiting, 1 dose, Starting on Sat07/05/21 at 1140, Until Sat07/05/21 at 1142, First choice, PACU 1142 ($ Given - Prov ider: Janette Andres RN) Linked Groups Order Group 1: SALINE LOCK, INSERT AND MAINTAIN (CANCELED) Routine, CONTINUOUS, Starting on Sat07/05/21 at 0715, Until Specified, Pre-op, New collection And 0.9% NaCl injection 3 mLJump to med 3 mL, Intracatheter, EVERY 8 HOURS, First dose on Sat07/05/21 at 0715, Until Discontinued, Flush peripheral IV catheter with 3 mL of normal saline every 8 hours., Pre-op And 0.9% NaCl injection 1-10 mLJump to med 1-10 mL, Intracatheter, PRN, Other, peripheral line flush, Starting on Sat07/05/21 at 0704, Until Sat07/05/21 at 1440, Flush peripheral IV catheter with 1-10 mL of normal saline before and after medications and prn to clear blood from the line or to verify patency., Pre-op documented in this encounter Care Teams Chief Of Service Relationship Specialty Start Date End Date Luis Fernando Vo MD [address] [facility] [address] [place] [address] PCP - General Cardiovascular Disease 06/06/21 documented as of this encounter
--- OUTSIDE RECORDS SUMMARY | 2024-11-05 00:09 | XMS_ITS | Continuity of Care Document ---
Author Organization [facility] [address] [id number] Care Team Providers Care Test Architect Name Role Phone Baldev Mccray Primary Care Physician Encounter [facility] Financial Number [id number] Date(s): 02/03/24 - 02/03/24 [facility] [address] [address] Encounter Diagnosis Heart failure with mid-range ejection fraction (HFmEF)(Discharge Diagnosis) - 02/03/24 Ischemic cardiomyopathy(Discharge Diagnosis) - 02/03/24 Coronary artery disease(Discharge Diagnosis) - 02/03/24 HTN (hypertension) I10(Discharge Diagnosis) - 02/03/24 Discharge Disposition: Home or Self Care Attending Physician: Juan Gu MD Referring Physician: Baldev Mccray MD Allergies, Adverse Reactions, Alerts No Known Allergies Assessment and Plan Future Appointments Appointment Date:06/23/2024 10:15:00 AM Scheduled Provider:Susan Montiel MD Location:[facility] [address] Appointment Type:CPA EP Established Patient Appointment Date:07/14/2024 11:15:00 AM Scheduled Provider:Baldev Mccray MD Location:[facility] Appointment Type:[facility] Established Patient Appointment Date:08/10/2024 11:30:00 AM Scheduled Provider: Location:[facility] Cardiology Appointment Type:Echocardiogram Complete Study Appointment Date:08/10/2024 12:30:00 PM Scheduled Provider:Juan Gu MD Location:[facility] Appointment Type:[facility] Follow Up Appointment Date:01/06/2025 09:45:00 AM Scheduled Provider:Baldev Mccray MD Location:[facility] [address] Appointment Type:CIMR CPE Complete Physical [...] albuterol 90 mcg/inh inhaler 2 puff(s), Inhalation, [id number], PRN, 1 each, Inhaler, 3, 3, shortness of breath, Slow Breath inhaleslowly and deeply , [facility], [id number], 172.72, cm, 07/31/23 10:20:00 CDT, Height, 86.81, kg, 07/31/23 10:20:00 CDT, Weight Start Date: 11/05/23 Status: Ordered allopurinol 100 mg oral tablet 1 tablet(s), Oral, daily, 30 tablet(s), 0, 0, FOR GOUT PREVENTION., Route to Pharmacy Electronically, [facility], [id number], 172.72, cm, 07/31/23 10:20:00 CDT, Height, 86.81, [...] the prescribing physician., Route to Pharmacy Electronically, [facility], [id number], 177, cm, 02/03/24 11:23:00 CDT, Height, 91.81, kg, 02/03/24 11:23:00 CDT, Weight Start Date: 02/03/24 Status: Ordered Entresto 49 mg-51 mg oral tablet 1 tablet(s), Oral, bid, 180 each, Tablet(s), 0, 0, Route to Pharmacy Electronically, [facility], [id number], 177, cm, 01/03/24 13:03:00 NETWORK TECHNICIAN, Height, 91.2, kg, 01/03/24 13:03:00 NETWORK TECHNICIAN, Weight Start Date: 01/13/24 Status: Ordered fexofenadine 180 mg oral tablet 180 mg, 1 tablet(s), Oral, daily, 30 tablet(s), Tablet(s), 0 Start Date: 11/08/17 Status: Ordered Flomax 0.4 mg oral capsule 0.4 mg, 1 capsule(s), Oral, pm after dinner, 90 capsule(s), Capsule(s), 3, 3, Route to Pharmacy Electronically, [facility], [id number], 172.72, cm, 11/06/2022 1120,Height, 89.09, kg, 11/06/2022 1120, Weight Start Date: 11/09/22 Stop Date: 11/04/23 Status: Ordered Keflex 250 mg oral capsule 250 mg, 1 capsule(s), Oral, qhs, 0 Start Date: 09/26/22 Status: Ordered Lasix 20 mg oral tablet 20 mg, 1 tablet(s), Oral, daily, 90 tablet(s), Tablet(s), 3, 3, Route to Pharmacy Electronically, [facility], [id number], 177, cm, 02/03/24 11:23:00 CDT, Height, 9 [...] 3, 3, Route to Pharmacy Electronically, [facility] [address] [facility], [id number], 172.72, cm, 07/31/23 10:20:00 CDT, Height, 86.81, kg, 07/31/23 10:20:00 CDT, Weight Start Date: 10/30/23 Status: Ordered Potassium Chloride (Eqv-K-Tab) 10 mEq oral tablet, extended release 10 mEq, 1 tablet(s), Oral, bid, 180 tablet(s), 3, 3, Route to Pharmacy Electronically, [facility] [address], [id number], 172.72, cm, 11/06/2022 1120, Height, 89.09, kg, 11/06/2022 1120, Weight Start Date: 11/09/22 Stop Date: 11/04/23 Status: Ordered prochlorperazine 10 mg oral tablet 10 mg, 1 tablet(s), Oral, daily, PRN, 30 tablet(s), Tablet(s), 1, 1, nausea, Route to Pharmacy Electronically, [facility] [address] [facility], [id number], 177, cm, 01/03/24 13:03:00 NETWORK TECHNICIAN, Height, 91.2, kg, 03/01/24 13:03:00 NETWORK TECHNICIAN, Weight Start Date: 01/03/24 Stop Date: 03/03/24 Status: Ordered rosuvastatin 20 mg oral tablet 1 tablet(s), Oral, HS, 90 tablet(s), 0, 0, Route to Pharmacy Electronically, [facility] [address] [facility],[id number], 177, cm, 01/03/24 13:03:00 NETWORK TECHNICIAN, Height, 91.2, kg, 01/03/24 13:03:00 NETWORK TECHNICIAN, Weight Start Date: 01/13/24 Status: Ordered Wixela Inhub 250 mcg-50 mcg inhalation powder 1 puff(s), Inhalation, bid, 1 each, Inhaler, 3, 3, Fast Breath inhale quickly and deeply, Route to Pharmacy Electronically, [facility] [address] [facility], [id number], 172.72, cm, 07/31/23 10:20:00 CDT, Height, 86.81, kg, 07/31/23 10:20:00 CDT, Weight Start Date: 11/05/23 Status: Ordered Problem List Condition Confirmation Course Effective Dates Status H ealth Status Informant Allergic rhinitis Confirmed Active Asthma-COPD overlap syndrome Confirmed Active ASHD (arteriosclerotic heart disease) I25.10 Confirmed Active BPH (benign prostatic hyperplasia) Confirmed Active Hearing loss of both ears Confirmed Active Coronary arteriosclerosis in [place] artery Confirmed Active HTN (hypertension) I10 Confirmed [...] 04/2010 C ompleted Prostate implantation Com pleted [id number] 2left Vital Signs Most recent to oldest [Reference Range]: 1 Peripheral Pulse Rate [60-100 bpm] 52 bp m *L* (02/03/24 11:23 AM) Blood Pressure [89-139/60-90 mm Hg] 128/ 52mm Hg (02/03/24 11:23 AM) Height 177 cm (02/03/24 11:23 AM) Weight 91.81 kg (02/03/24 11:23 AM) Social History Social History Type Response [...] Date: Status:Met Progression:Met Note * Tomy Hernandez [facility] Assistant Manager Retail: PERFORM Event Display: ROI_Correspondence Authored Date: * Event Display: ROI_Correspondence * Event Display: ROI_Correspondence * Event Display: ROI_Correspondence Cardiology Outpatient Note * Juan Gu MD: PERFORM Event Display: Cardiology Office/Clinic Note Authored Date: [id number] Patient Information Name:BAM SMALL Mely Address: [address] [place] [id number] Sex:Male Date of :1935 Emergency Contact:BRANDY SMALL Location:[facility] Registration Date and Time:02/03/2024 10:40 CDT Primary Care Physician: Baldev Mccray MD, Attending Physician: Juan Gu MD, History of Present Illness 1.?? CAD - s/p CABG 2014 2.?? Ischemic cardiomyopathy 3.?? Heart failure with [...] relatively well from a cardiovascular standpoint.?? His cardiac history significant for??coronary artery disease with bypass at [facility] in 2014.?? More recently he was noted to develop??cardiomyopathy.?? In 2020 his LVEF was 24%. ??It improved over the following couple years with an EF of??46% on echo in July 2023.?? He has been on sacubitril/valsartan and metoprolol tartrate in addition to his furosemide. ?? At presenthe has no chest pain or pressure.?? Has not had any recent LE or abd edema.?? Has no orthopnea or PND.?? Has had prior issues with dizziness, currently no orthostatic lightheadedness, no syncope.?? Occasional mild palpitations.? Cardiovascular regimen Metoprolol tartrate 50 mg p.o. OD twice daily Sacubitril/valsartan 49/51 twice daily ?? Furosemide 20 mg p.o. daily Rosuvastatin [...] of 02/11/2023, LV systolic function has increased. Review of Systems Pertinent findings as per HPI, all other systems are negative. Vitals and Measurements Vital Signs Height: 177 cm Height Inches Conversion: 69.7 Weight: 91.81 kg Weight in Pounds (kg conversion): 202 Body Surface Area: 2.1246 m2 Body Mass Index: 29.31 kg/m2 Systolic Blood Pressure: 128 mm Hg Diastolic Blood Pressure:??52 mm Hg??Low Peripheral Pulse Rate:??52 bpm??Low Oxygen Saturation: 96 % Physical Exam Gen -??Well-appearing, no acute distress HEENT-anicteric, conjunctiva pink Neck-no bruits, JVP normal CV- RRR, no M, no S3 Resp - clear b/l abd - soft, NT/ND, HJR negative ext - WWP, no LE edema Neuro -alert, oriented, grossly nonfocal ?? Assessment/Plan 1.??Heart failure with mid-range ejection fraction (HFmEF) ?? 2.??Ischemic cardiomyopathy Ordered: Echocardiogram Complete Study ?? 3.??Coronary artery disease ?? 4.??HTN (hypertension) I10 ?? Orders: dapagliflozin, 5 mg, 1 tablet(s), Oral, daily, 30 tablet(s), Tablet(s), 11, 11, This medication canbe used for both Heart Failure and Diabetes, please do not stop or substitute without talking to the prescribing physician., [facility] furo[facility], 20 mg, 1 tablet(s), Oral, daily, 90 tablet(s), Tablet(s), 3, 3, [facility] Pharm[facility] Electron[facility], [facility], [id number], 177, cm, 02/03/24 11:23:00 CDT, Height, 91.81, kg, 02/03/24 11:23:00 CDT, Weight metoprolol, 50 mg, 1 tablet(s), Oral, daily, 90 tablet(s), Tablet CR, 3, 3, Do Not Route In summary, Bam Small is an 88-year-old history of coronary artery disease, ischemic cardiomyopathy, hypertension, asthma/COPD, lung cancer, and heart failure with midrange EF who presents to be seen in consultation for his heart failure.?? As above, Mr. Small is doing reasonably well at present.??He is euvolemic today with NYHA class II symptoms. ??His blood pressure is controlled. ??He is tolerating his medications. ??He is free from angina.?? His LV function has improved over the last couple years. ??His LVEF is now 46%.?? We will transition his metoprolol to tartrate to metoprolol succinate??so he is on an evidence supporting heart failure beta-ric.?? Will also add dapagliflozin 5 mg daily. ??Will defer spironolactone??as his EF is 46% and his symptoms are well-controlled.?? I have made no other changes medications. ??Will plan to see him back for follow-up in 6 months. ??At that time we will repeat an echocardiogram. Problem List/Past Medical History Ongoing Acid reflux disease Allergic rhinitis ASHD (arteriosclerotic heart disease) I25.10 Asthma-COPD overlap syndrome BPH (benign prostatic hyperplasia) Bulging lumbar disc Cataract Coronary arteriosclerosis in [place] artery Elevated cholesterol E78.00 Gout Ground glass [...] albuterol 90 mcg/inh inhaler, 2 puff(s), Inhalation, [id number], PRN, 3 refills allopurinol 100 mg oral [...] mg oral tablet, 1 tablet(s), Oral, HS Wixela Inhub 250 mcg-50 mcg inhalation powder, 1 puff(s), Inhalation, bid, 3 refills Allergies NKA Social History Smoking Status - [...] other voice to text assistive technology and roll mechanic, variances may occur. Patient Care team information Care Team Personnel Name: Cande Malloy IT SOFTWARE ENGINEER Position: AMB IT SOFTWARE ENGINEER/PA Member Role: Nurse Practitioner Address: Address: [address] [place] [address] Name: Abena Saldaña RN Lung Screening Coordinator Position: Population Health Coordinator Member Role: Population Health Coordinator Name: Gerhard Sultana MD Position: Physician - Radiation Oncology Member Role: Radiation Oncologist Address: Address: [address] [place] [address] Name: Jeremie Mujica M.D. Position: Physician - Cardiology Member Role: Mold Setter Heart Failure Address: Address: [address] [place] [address] Name: Mindi Ma Director Of Logistics Position: Population Health Coordinator Oncology Social Work Member Role: Population Health Coordinator Name: Garland Haywood MD Member Role: Specialist Physician Name: Veronika Odonnell RN Position: AMB ONC Nurse Navigator Member Role: Nurse Navigator Name: Baldev Mccray MD Position: Physician - Internal Medicine Member Role: Primary Care Physician Address: Address: [address] [place] [address] [place] [address] [place] Name: Laila Burch RN Outpatient Insect Control Aide Position: OP Insect Control Aide Slusher Operator Member Role: Insect Control Aide Name: Bronson Vaca IT SOFTWARE ENGINEER Position: [facility]B ONC IT SOFTWARE ENGINEER Member Role: Nurse Practitioner Address: Address: [address] [place] [address] [place] Name: Lucas Damon Pennie Vice President Global Advertising Sales Position: [facility] ONC CPM/MA/RN Member Role: Nurse Navigator Name: Juan Gu MD Position: Physician - Cardiology Med Service: Senior Care Assistant Test Architect Role: Attending Physician Address: Address: [address] [facility] [address] Name: Baldev Mccray MD Position: Physician - Internal Medicine Med Service: Senior Care Assistant Test Architect Role: Referring Physician Address: Address: [address] [facility] [address] Care Team Related Persons Name: BRANDY SMALL Address: home [address] [place] [phone]
--- OUTSIDE RECORDS SUMMARY | 2024-11-05 00:09 | XMS_ITS | Encounter Summary ---
Author Organization [facility] Address [address] [place] [address] Care Team Providers Care Machine Edge Bander Name Role Phone Luis Fernando Vo MD Primary Care Provider [phone] Reason for Visit * Reason Comments Surgical Followup Encounter Details Date Type Department Care Team (Late st Contact Info) Description 09/18/2021 10:00 AM SENIOR MARKETING MANAGER Office Visit [facility] [address] [facility], [address] [place] [address] Cresencio Sotelo MD [facility] [place] [address] Melanocytic neoplasm of skin (Primary Dx) Social History Tobacco Use Types Packs/Day Years [...] No 07/05/2021 documented as of this encounter Progress Notes * Cresencio Sotelo MD - 09/18/2021 10:17 AM CST History of Present Illness: 85 year old who presents for postoperative visit. The patient underwent dorsal nasal flap with fullthickness skin graft for columella on 07/05/21 Today the patient reports no major complaints and is healing well. At last visit 6 weeks ago, he was still doing local wound care for the skin graft portion, which was not completely granulated. Thishas healed in interim. Review of Systems: ROS x 14 was performed and was negative except for : none Past Medical History: Diagnosis Date ??? Asthma never hospitalized ??? Atherosclerosis of coronary artery ??? Chronic obstructive pulmonary disease (COPD) Dx 30-40 years ago; no hospitalizations; has not used rscue inhaler ??? GERD (gastroesophageal reflux disease) controlled with medication ??? Gout ??? High blood pressure controlled with medicaiton ??? High cholesterol ??? IV-hard IV stick ??? Prostate disease PSH: has a past surgical history that includes pr biopsy of skin lesion; pr repr anomal coron art pa origin by graft; coronary artery bypass graft; hx joint replacement; lithotripsy; and plastic surgery procedure (N/A, 07/05/2021). Current Outpatient Medications Medication Sig Dispense Refill [...] 20 mg by mouth once daily ??? prochlorperazine (COMPAZINE) 10 MG tablet TAKE 1 TABLET BY MOUTH TWICE A DAY NEEDED FOR NAUSEA ??? saline nasal spray (OCEAN; BABY AYR) 0.65 % nasal spray [place] 2 (two) sprays into each nostril 4 times daily as needed for Dry Nose ??? simvastatin (ZOCOR) 20 MG tablet ??? tamsulosin (FLOMAX) 0.4 MG capsule Take 0.4 mg by mouth once daily No current facility-administered medications for this visit. Allergies Patient has no known allergies. Social History Tobacco Use ??? Smoking status: Former Smoker ??? Smokeless tobacco: Never Used Vaping Use ??? Vaping Use: Never used Substance Use Topics ??? Alcohol use: Yes Comment: nightly gin and tonic ??? Drug use: No Family History Problem Relation Name Age of Onset ??? Cancer Mother breast ??? Hypertension Mother Physical Exam: Nasal wound: clean, dry, intact, no drainage. Healing well, dorsal nasal flap well vascularized. Minimal crusting, minimal swelling Nasal tip wound: clean, dry, intact, no drainage. Completely healed and covered by skin. Slight constriction of the tip defining points, donor site along right sidewall healed well, slight palpable scar ball along the incision in the right alar-tip junction that he is not bothered by Assessment and Plan: The patient is a 85 year old male who presents today for a post operative visit. The patient is s/p dorsal nasal flap with full thickness skin graft for columella on 07/05/21. His skin graft did not completely take, and required healing by secondary intention. Now it is completely healed and he is happy with the outcome. Follow up PRN OR MARKETING MANAGER documented in this encounter Plan of Treatment Not on file documented as of this encounter Visit Diagnoses Diagnosis Melanocytic neoplasm of skin- Primary documented in this encounter Care Teams Machine Edge Bander Relationship Specialty Start Date End Date Luis Fernando Vo MD [address] [place] [address] PCP - General Cardiovascular Disease 06/06/21 documented as of this encounter
--- OUTSIDE RECORDS SUMMARY | 2024-11-05 00:09 | XMS_ITS | Referral Summary ---
Author Organization [facility] Address [address] [place] [address] Care Team Providers Care Novelty Maker Name Role Phone Luis Fernando Vo MD Primary Care Provider [phone] Source Comments [facility],non-owned Affiliates and Associated Physician Practices is amultiple site organization consisting of ambulatory clinics and hospital sitesin [place], [place], [place] and [place]. This disclosure is being madepursuant to the Care Everywhere program and may not contain all information available regarding this patient. Last updated 18.[facility] Allergies No known active allergies Medications * Be aware that medications may not be up to date on this document. Alwaysverify current medications with the patient. Medication Sig Dispensed Refills Start Date End Date Status simvastatin (ZOCOR) 20 MG tablet 06/04/2017 Active fexofenadine (JENNIFER) 60 MG tablet Take by mouth. 07/16/2017 Active fesoterodine CR 24hr (TOVIAZ) 4 MG tablet Take by mouth. 07/16/2017 Active cephalexin (KEFLEX) 250 MG capsule Take 250 mg by mouth at bedtime 04/20/2021 Active allopurinol (ZYLOPRIM) 100 MG tablet Take 100 mg by mouth once daily Active tamsulosin (FLOMAX) 0.4 MG capsule Take 0.4 mg by mouth once daily Active omeprazole EC (PRILOSEC OTC) 20 MG tablet Take 20 mg by mouth once daily Active hydroCHLOROthiazide (HYDRODIURIL) 25 MG tablet Take 25 mg by mouth once daily Active aspirin (ASPIRIN) 81 MG chew tablet Take 325 mg by mouth once daily Active ADVAIR DISKUS 250-50 MCG/DOSE inhaler Inhale 1 puff by mouth 2 times daily 02/15/2021 Active saline nasal spray (OCEAN; BABY AYR) 0.65 % nasal spray [place] 2 (two) sprays into each nostril 4 times daily as needed for Dry Nose 07/05/2021 Active albuterol HFA (PROVENTIL;VENTOLIN;P ROAIR) 108 (90 Base) MCG/ACT inhaler INHALE 2 PUFFS BY MOUTH EVERY 4 HOURS NEEDED FOR SHORTNESS OF BREATH FOR 30 DAYS 07/18/2021 Active prochlorperazine (COMPAZINE) 10 MG tablet TAKE 1 TABLET BY MOUTH TWICE A DAY NEEDED FOR NAUSEA 07/19/2021 Active Active Problems No known active problems Immunizations Name Administration Dates Next Due INFLUENZA VACCINE, TRIV. (AF LURIA, FLUZONE TRIVALENT; 6MO+) (IIV3) 08/21/2017,07/18/2015 Covid Moderna primary monova lent 12+ yr 0.5mL 08/28/2021,12/30/2020,12/02/2020 INFLUENZA VACCINE, ADJUVANTE D, QUADR. (FLUAD QUADRIVALENT; 65Y+) (AIIV4) 08/01/2021 INFLUENZA VACCINE, ADJUVANTE D, TRIV. (FLUAD TRIVALENT; 65Y+) (AIIV3) 09/01/2019 INFLUENZA VACCINE, QUADR. (F LUZONE; FLULAVAL; FLUARIX; AFLURIA QUADRIVALENT; 6MO+), 0.5 ML (IIV4) 07/21/2020 PNEUMOCOCCAL PPSV23 01/09/2016 Pneumococcal Pcv13 Conj 10/14/2014 Social History Tobacco Use Types Packs/Day Years Used Date Smoking Tobacco: Former Smokeless Tobacco: Never Alcohol Use Standard Drinks/Week Comments Yes 0 (1 standard drink = 0.6 oz pur e alcohol) nightly gin and tonic Sex and Gender Information Value Date Recorded Sex Assigned at Not on file Gender Identity Not on file Sexual Orientation Not on file Last Filed Vital Signs Vital Sign Reading Time Taken Comments Blood Pressure 140/73 08/08/2021 3:01 PM CDT Pulse 72 08/08/2021 3:01 PM CDT Temperature 36.5 ??C (97.7 ??F) 07/05/2021 12:47 PM C DT Respiratory Rate 15 07/05/2021 1:15 PM CDT Oxygen Saturation 92% 07/05/2021 1:15 PM CDT Inhaled Oxygen Concentration - - Weight 91.2 kg (201 lb) 08/08/2021 3:01 PM CDT Height 177.8 cm (5' 10 ) 08/08/2021 3:01 PM CDT Body Mass Index 28.84 08/08/2021 3:01 PM CDT Functional Status Functional Status Response Date of [...] person have difficulty concentrating/remembering/making decisions? No 07/05/2021 Plan of Treatment Not on file Care Teams Novelty Maker Relationship Specialty Start Date End Date Luis Fernando Vo MD [address] [facility] [facility] [address] [place] [address] PCP - General Cardiovascular Disease 06/06/21
--- OUTSIDE RECORDS SUMMARY | 2024-11-05 00:09 | XMS_ITS | Encounter Summary ---
Author Organization [facility] Address [address] [place] [address] Care Team Providers Care Cover Inspector Name Role Phone Luis Fernando Vo MD Primary Care Provider [phone]- [phone] Encounter Details Date Type Department Care Team (Late st Contact Info) Description 02/06/2023 Lab Requisition [facility] [address] [facility] [place] [address] Chiki Nicholson MD [address] [place] [address] Social History Tobacco Use Types Packs/Day Years [...] No 07/05/2021 documented as of this encounter Plan of Treatment Not on file documented as of this encounter Procedures Procedure Name Priority Date/Time Associated Diagnosis Comments DERMATOPATHOLOGY Routine 02/05/2023 3:33 AM CDT documented in this encounter Results * DERMATOPATHOLOGY (02/05/2023 3:33 AM CDT) Case Report Dermatopathology Report ? Case: [id number] ? Authorizing Provider: ??Chiki Nicholson MD ?Collected: ? 02/05/2023 03:33 AM ? Ordering Location: ? [facility] ?Received: ?02/06/2023 02:23 PM ? Pathologist: ? Ileana Sandoval MD ? Specimens: ?? A) - Skin, dorsal left hand ? B) - Skin, dorsal right prox forearm ? 3 3:46 PM CDT DERMATOPATHOLOGY LABORATORY Final Diagnosis Specimen A. 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 SKIN, dorsal right prox forearm: SQUAMOUS CELL CARCINOMA, KERATOACANTHOMA TYPE (C44.622) 3 3:46 PM CDT DERMATOPATHOLOGY LABORATORY Clinical History A-B: R/O SCC, KA 3 3:46 PM CDT DERMATOPATHOLOGY LABORATORY Gross Description Specimen A: Received is one formalin filled container labeled with the patient's name and designated dorsal left hand. The specimen consists of a shave biopsy measuring [id number] mm. Jar 0. Specimen B: Received is one formalin filled container labeled with the patient's name and designated dorsal right prox forearm. The specimen consists of a shave biopsy measuring 19x81e1 mm. Jar 0. 3:46 PM CDT DERMATOPATHOLOGY LABORATORY Microscopic Description Specimen A. SKIN, dorsal left hand: Sections show an endo exophytic crateriform lesion with a keratotic plug, formed by confluent follicle-like structures with relatively large keratinocytes and neutrophilic abscesses. Specimen B. SKIN, dorsal right prox forearm: Sections show an endo exophytic crateriform lesion with a keratotic plug, formed by confluent follicle-like structures with relatively large keratinocytes and neutrophilic abscesses. 3:46 PM CDT DERMATOPATHOLOGY LABORATORY Disclaimer An external and internal positive and negative controls are appropriate for the histochemical, immunohistochemical and immunofluorescence stain(s) in this case (if any), except where stated explicitly. The performance characteristics of the stain(s) cited in this report were developed and its performance characteristic determined by the Dermatopathology Laboratory at [facility], directed by Dr. Azalea Peters. These tests need not be, and therefore are not, approved by the [place] Food and Drug Administration. The tests are used for clinical purposes. Billing Codes Specimen Charges Stain Charges 80391 19742 1 1 3 3:46 PM CDT DERMATOPATHOLOGY LABORATORY Embedded Images 3:46 PM CDT DERMATOPATHOLOGY LABORATORY Pathology/Cytology TISSUE SPECIMEN FROM SKIN / Unknown 02/05/2023 3:33 AM CDT 02/06/2023 2:23 PM CDT Miscellaneous samples (specimen) TISSUE SPECIMEN FROM SKIN / Unknown 02/05/2023 3:33 AM CDT 02/06/2023 2:23 PM CDT Chiki Nicholson MD LAB - PATHOLOGY/CYTO LOGY ORDERABLES DERMATOPATHOLOGY LABORATORY [facility] - Department of Dermatology [facility] [address] [place] [address], [address] [phone] documented in this encounter Visit Diagnoses Not on filedocumented in this encounter Care Teams Cover Inspector Relationship Specialty Start Date End Date Luis Fernando Vo MD [address] [place] [phone] PCP - General Cardiovascular Disease 06/06/21 documented as of this encounter
--- OUTSIDE RECORDS SUMMARY | 2024-11-05 00:09 | XMS_ITS | Continuity of Care Document ---
Author Organization [facility] [place] [address] Address [address] [id number] Care Team Providers Care Experimental Display Builder Name Role Phone Baldev Mccray Primary Care Physician Encounter [facility] Financial Number [id number] Date(s): 12/26/23 - 12/26/23 [facility] [address] [id number] Encounter Diagnosis Asthma-COPD overlap syndrome(Discharge Diagnosis) - 12/26/23 Ground glass opacity present on imaging of lung(Discharge Diagnosis) - 12/26/23 History of lung cancer(Discharge Diagnosis) - 12/26/23 Allergic rhinitis(Discharge Diagnosis) - 12/26/23 Ischemic cardiomyopathy(Discharge Diagnosis) - 12/26/23 ASHD (arteriosclerotic heart disease) I25.10(Discharge Diagnosis) - 12/26/23 Discharge Disposition: Home or Self Care Attending Physician: Susan Montiel MD Allergies, Adverse Reactions, Alerts No Known Allergies Assessment and Plan Future Appointments Appointment Date:01/03/2024 01:00:00 PM Scheduled Provider:Baldev [facility]ccray [facility] App[facility] Type:CIMR IOS ARCHITECT New Patient Appointment Date:01/21/2024 10:15:00 AM Scheduled Provider: Location:[facility] CT Appointment Type:CT CHEST Appointment Date:06/23/2024 10:15:00 AM Scheduled Provider:Susan Montiel MD Location:[facility] [address] Appointment Type:CPA EP Established Patient Immunizations [...] albuterol 90 mcg/inh inhaler 2 puff(s), Inhalation, o0qzava, PRN, 1 each, Inhaler, 3, 3, shortness of breath, Slow Breath inhaleslowly and deeply , Route to Pharmacy Electronically, [facility] [address] [facility], [id number], 172.72, cm, 07/31/23 10:20:00 CDT, Height, 86.81, kg, 07/31/23 10:20:00 CDT, Weight Start Date: 11/05/23 Status: Ordered allopurinol 100 mg oral tablet 1 tablet(s), Oral, daily, 30 tablet(s), 0, 0, FOR GOUT PREVENTION., Route to Pharmacy Electronically, [facility] [address] [facility], [id number], 172.72, cm, 07/31/23 10:20:00 CDT, Height, 86.81, kg, 07/31/23 10:20:00 CDT, Weight Start Date: 12/18/23 Status: Ordered aspirin 81 mg oral enteric coated tablet 81 mg, 1 tablet(s), Oral, daily, Tab EC, 0 Start Date: 11/08/17 Status: Ordered Entresto 49 mg-51 mg oral tablet 1 tablet(s), Oral, bid, 60 tablet(s), Tablet(s), 0, 0, Route to Pharmacy Electronically, [facility] [address] [facility], [id number], 172.72, cm, 07/31/23 10:20:00 CDT, Height, 86.81,kg, 07/31/23 10:20:00 CDT, Weight Start Date: 12/18/23 Status: Ordered fexofenadine 180 mg oral tablet 180 mg, 1 tablet(s), Oral, daily, 30 tablet(s), Tablet(s), 0 Start Date: 11/08/17 Status: Ordered Flomax 0.4 mg oral capsule 0.4 mg, 1 capsule(s), Oral, pm after dinner, 90 capsule(s), Capsule(s), 3, 3, Route to Pharmacy Electronically, [facility] [address], [id number], 172.72, cm, 11/06/2022 1120,Height, 89.09, kg, 11/06/2022 1120, Weight Start Date: 11/09/22 Stop Date: 11/04/23 Status: Ordered Keflex 250 mg oral capsule 250 mg, 1 capsule(s), Oral, qhs, 0 Start Date: 09/26/22 Status: Ordered Lasix 40 mg oral tablet 40 mg, 1 tablet(s), Oral, daily, 90 tablet(s), Tablet(s), 3, 3, Route to Pharmacy Electronically, [facility] [address] [facility], [id number], 178, cm, 09/22/2022 2335, Height, 93.7, k g, 09/26/2022 0507, Weight Start Date: 10/18/22 Stop Date: 10/13/23 Status: Ordered Metoprolol Tartrate 50 mg oral tablet 50 mg, 1 tablet(s), Oral, bid, 180 tablet(s), Tablet(s), 3, 3, Route to Pharmacy Electronically, [facility] [address] [facility], [id number], 172.72, cm, 01/30/2023 1336, Height, 86.4,kg, 02/19/2023 1340, Weight Start Date: 03/14/23 Stop Date: 03/08/24 Status: Ordered Multivitamin oral tablet 1 tablet(s), Oral, daily, 30 tablet(s), 0 Start Date: 11/12/12 Status: Ordered omeprazole 20 mg oral delayed release capsule 1 capsule(s), Oral, daily, 90 capsule(s), 3, 3, Route to Pharmacy Electronically, [facility] [address] [place] [facility], [id number], 172.72, cm, 07/31/23 10:20:00 CDT, Height, 86.81, kg, 07/31/23 10:20:00 CDT, Weight Start Date: 10/30/23 Status: Ordered Potassium Chloride (Eqv-K-Tab) 10 mEq oral tablet, extended release 10 mEq, 1 tablet(s), Oral, bid, 180 tablet(s), 3, 3, Route to Pharmacy Electronically, [facility] [address] [facility], [id number], 172.72, cm, 11/06/2022 1120, Height, 89.09, kg, 11/06/2022 1120, Weight Start Date: 11/09/22 Stop Date: 11/04/23 Status: Ordered prochlorperazine 10 mg oral tablet 10 mg, 1 tablet(s), Oral, [id number], PRN, 30 each, Tablet(s), 1, 1, nausea, Route to Pharmacy Electronically, [facility] [address] [place] [facility], [id number], 172.72, cm, 11/06/2022 1120, Height, 89.09, kg, 11/06/2022 1120, Weight Start Date: 11/06/22 Stop Date: 01/05/23 Status: Ordered rosuvastatin 20 mg oral tablet 1 tablet(s), Oral, HS, 90 tablet(s), 3, Route to Pharmacy Electronically, [facility] [address], [id number], 172.72, cm, 01/30/23 13:36:00 CDT, Height, 86.4, kg, 02/19/23 13:40:00CDT, Weight Start Date: 06/10/23 Status: Ordered Wixela Inhub 250 mcg-50 mcg inhalation powder 1 puff(s), Inhalation, bid, 1 each, Inhaler, 3, 3, Fast Breath inhale quickly and deeply, Route to Pharmacy Electronically, [facility] [address] [place] [facility], [id number], 172.72, cm, 07/31/23 10:20:00 CDT, Height, 86.81, [...] disease) J44.9 Confirmed Active Coronary arteriosclerosis in [place] artery Confirmed Active HTN (hypertension) I10 Confirmed [...] 04/2010 C ompleted Prostate implantation Com pleted 05298 2left Vital Signs Most recent to oldest [Reference Range]: 1 Peripheral Pulse Rate [60-100 bpm] 54 bp m *L* (12/26/23 2:31 PM) Blood Pressure [89-139/60-90 mm Hg] 122/ 68mm Hg (12/26/23 2:31 PM) Oxygen Flow Rate 0 L/min (12/26/23 2:31 PM) Height 172.72 cm (12/26/23 2:31 PM) Weight 89.18 kg (12/26/23 2:31 PM) Social History Social History Type Response [...] Privacy Practice Authored Date: * Tomy Hernandez OrthAlign[employer] Sign Writer: PERFORM Event Display: ROI_Correspondence Authored Date: * Event Display: ROI_Correspondence * Event Display: ROI_Correspondence * Event Display: ROI_Correspondence Patient Care team information Care Team Personnel Name: Abena Saldaña RN Lung Screening Coordinator Position: Population Health Coordinator Member Role: Population Health Coordinator Name: Jeremie Mujica M.D. Position: Physician - Cardiology Member Role: Composite Engineer Heart Failure Address: Address: [address] [place], [place] [id number] [place] Name: Mindi Ma Elevator Starter Position: Population Health Coordinator Waste Duster Member Role: Population Health Coordinator Name: Garland Haywood MD Member Role: Specialist Physician Address: Address: [address] [place] [address] [place] [address] [place] Name: Veronika Odonnell RN Position: AMB ONC Nurse Navigator Member Role: Nurse Navigator Name: Baldev Mccray MD Position: Physician - Internal Medicine Member Role: Primary Care Physician Address: Address: [address] [facility] [address] [place] [address] [place] Name: Laila Burch RN Outpatient Admin Secretary Position: OP Admin Secretary Cleaning Machine Operator Member Role: Admin Secretary Name: Bronson Vaca IOS ARCHITECT Position: AMB ONC IOS ARCHITECT Member Role: Nurse Practitioner Address: Address: [address] Name: Lucas Damon Rubber Goods Inspector Tester Position: AMB ONC CPM/MA/RN Member Role: Nurse Navigator Name: Susan Montiel MD Position: Physician - Pulmonology Med Service: Media Consultant Experimental Display Builder Role: Attending Physician Address: [facility] [address] [address] [address] Care Team Related Persons Name: BRANDY SMALL Address: home [address] [facility] [id number]
--- OUTSIDE RECORDS SUMMARY | 2024-11-05 00:09 | XMS_ITS | Continuity of Care Document ---
Author Organization [facility] [place] [address] Address [address] [facility] [address], [place] [id number] Care Team Providers Care Loss Claim Clerk Name Role Phone Luis Fernando Vo Primary Care Physician Encounter [facility] Financial Number [id number] Date(s): 07/03/23 - 07/03/23 [facility] [address] [facility] [address] [place], [place] [phone] Discharge Disposition: Home or Self Care Attending Physician: Luis Fernando Vo M.D. Allergies, Adverse Reactions, Alerts No Known Allergies Assessment and Plan Future Appointments Appointment Date:07/31/2023 10:15:00 AM Scheduled Provider:Susan Montiel MD Location:[address] Appointment Type:ZANA GRIGGS Established Patient Appointment Date:07/31/2023 11:30:00 AM Scheduled Provider: Location:[facility] Cardiology Appointment Type:Echocardiogram Complete Study Appointment Date:10/22/2023 09:30:00 AM Scheduled Provider:Luis Fernando Vo M.D. Location:[address] Appointment Type:ZANA GRIGGSE Established Patient Extended Immunizations Given and Recorded [...] A DAY, 90, Route to Pharmacy Electronically, [facility], [id number], Instructions Replace Required Details, 172.72, cm, 01/30/23 13:36:00 CDT, Height, 86.4, kg, 02/19/23 13:40:00 CDT, Weight Start Date: 06/24/23 Status: Ordered albuterol 90 mcg/inh inhaler 2 puff(s), Inhalation, [id number], PRN, 1 each, Inhaler, 3, 3, shortness of breath, Slow Breath inhaleslowly and deeply , Route to Pharmacy Electronically, [facility] [place], [id number], 175, cm, 07/25/2022 1145, Height, 97.5, kg, 07/25/2022 1145, Weight Start Date: 07/25/22 Status: Ordered allopurinol 100 mg oral tablet 1 tablet(s), Oral, daily, 90 tablet(s), 3, FOR GOUT PREVENTION., Route to Pharmacy Electronically, [facility], [id number], 175, cm, 07/25/2022 1145, Height, 97.5, kg, 07/25/2022 1145, Weight Start Date: 08/06/22 Status: Ordered aspirin 81 mg oral enteric coated tablet 81 mg, 1 tablet(s), Oral, daily, Tab EC, 0 Start Date: 11/08/17 Status: Ordered Azithromycin 5 Day Dose Pack 250 mg oral tablet 1 packet(s), Oral, daily, 5 day(s), 6 tablet(s), Packet, 0, 0, 07/07/23 3:45:00 PM CDT, as directed on package labeling, Route to Pharmacy Electronically, [facility] [place], [id number], 172.72, cm, 01/30/23 13:36:00 CDT, Height, 86.4, kg, 02/19/23 13:40:00 CDT, Weight Start Date: 07/02/23 Stop Date: 07/07/23 Status: Ordered Entresto 49 mg-51 mg oral tablet 1 tablet(s), Oral, bid, 180 tablet(s), Tablet(s), 3, 3, Route to Pharmacy Electronically, [facility] [place], [id number], 178, cm, 09/22/2022 2335, Height, 93.7, kg, 09/26/2022 0507, Weight Start Date: 10/18/22 Stop Date: 10/13/23 Status: Ordered fexofenadine 180 mg oral tablet 180 mg, 1 tablet(s), Oral, daily, 30 tablet(s), Tablet(s), 0 Start Date: 11/08/17 Status: Ordered Flomax 0.4 mg oral capsule 0.4 mg, 1 capsule(s), Oral, pm after dinner, 90 capsule(s), Capsule(s), 3, 3, Route to Pharmacy Electronically, [facility] [place], [id number], 172.72, cm, 11/06/2022 1120,Height, 89.09, kg, 11/06/2022 1120, Weight Start Date: 11/09/22 Stop Date: 11/04/23 Status: Ordered Keflex 250 mg oral capsule 250 mg, 1 capsule(s), Oral, qhs, 0 Start Date: 09/26/22 Status: Ordered Lasix 40 mg oral tablet 40 mg, 1 tablet(s), Oral, daily, 90 tablet(s), Tablet(s), 3, 3, Route to Pharmacy Electronically, [facility] [address] [place] [facility], [id number], 178, cm, 09/22/2022 2335, Height, 93.7, k g, 09/26/2022 0507, Weight Start Date: 10/18/22 Stop Date: 10/13/23 Status: Ordered Metoprolol Tartrate 50 mg oral tablet 50 mg, 1 tablet(s), Oral, bid, 180 tablet(s), Tablet(s), 3, 3, Route to Pharmacy Electronically, [facility] [place], [id number], 172.72, cm, 01/30/2023 1336, Height, 86.4,kg, 02/19/2023 1340, Weight Start Date: 03/14/23 Stop Date: 03/08/24 Status: Ordered Multivitamin oral tablet 1 tablet(s), Oral, daily, 30 tablet(s), 0 Start Date: 11/12/12 Status: Ordered omeprazole 20 mg oral delayed release capsule 1 capsule(s), Oral, daily, 90 capsule(s), 3, [facility], [id number], 178, cm, 09/22/2022 2335, Height, 93.7, kg, 09/26/2022 0507, Weight Start Date: 10/01/22 Status: Ordered Potassium Chloride (Eqv-K-Tab) 10 mEq oral tablet, extended release 10 mEq, 1 tablet(s), Oral, bid, 180 tablet(s), 3, 3, [facility] Electron[facility], [id number], 172.72, cm, 11/06/2022 1120, Height, 89.09, kg, 11/06/2022 1120, Weight Start Date: 11/09/22 Stop Date: 11/04/23 Status: Ordered predniSONE 10 mg oral tablet Taper from 40 mg q3day by 10 mg till off, Oral, daily, 30 tablet(s), 0, 0, Route to Pharmacy Electronically, [facility] [place], [id number], 172.72, cm, 01/30/23 13:36:00CDT, Height, 86.4, kg, 02/19/23 13:40:00 CDT, Weight Start Date: 07/02/23 Stop Date: 07/14/23 Status: Ordered prochlorperazine 10 mg oral tablet 10 mg, 1 tablet(s), Oral, t6hzodg, PRN, 30 each, Tablet(s), 1, 1, nausea, [facility] [id number], 172.72, cm, 11/06/2022 1120, Height, 89.09, kg, 11/06/2022 1120, Weight Start Date: 11/06/22 Stop Date: 01/05/23 Status: Ordered rosuvastatin 20 mg oral tablet 1 tablet(s), Oral, HS, 90 tablet(s), 3, Route to [facility] Electronically, [facility], [id number], 172.72, cm, 01/30/23 13:36:00 CDT, Height, 86.4, [...] disease) J44.9 Confirmed Active Coronary arteriosclerosis in [place] artery Confirmed Active HTN (hypertension) I10 Confirmed [...] 04/2010 C ompleted Prostate implantation Com pleted 54831 2left Vital Signs Most recent to oldest [Reference Range]: 1 Peripheral Pulse Rate [60-100 bpm] 63 bp m (07/03/23 9:31 AM) Blood Pressure [89-139/60-90 mm Hg] 116/ 63mm Hg (07/03/23 9:31 AM) Height 172.72 cm (07/03/23 9:31 AM) Weight 86.4 kg (07/03/23 9:31 AM) Social History Social History Type Response [...] Date: Status:Met Progression:Met Note * Tomy Hernandez [employer] Regeneration Operator: PERFORM Event Display: ROI_Correspondence Authored Date: [id number] * Event Display: ROI_Correspondence * Event Display: ROI_Correspondence * Event Display: ROI_Correspondence Cardiology Outpatient Note * Luis Fernando Vo M.D.: PERFORM Event Display: Cardiology Office/Clinic Note Authored Date: [id number] Patient Information Name:BAM SMALL Address: [address] [place] [phone] Sex:Male Date of :1935 Location:[facility] [place] [address] Registration Date and Time:07/03/2023 09:26 CDT Primary Care Physician: Luis Fernando Vo M.D., Attending Physician: Luis Fernando Vo M.D., Chief Complaint my heart History of Present Illness this patient comes in today and from a heart failure standpoint he seems to be doing excellent. He does have an ischemic cardiomyopathy along with cancer of the long and a history of congestive heartfailure. He is feeling very well at this point and it's obvious that his congestive failure has improved clearly. At this point I'm going to have him get a echo and BMP the next time he comes to see Dr. Montiel concerning his lung cancer. He actually is feeling quite well at this point. Vitals and Measurements Vital Signs Height: 172.72 cm Height Inches Conversion: 68 Weight: 86.4 kg Weight in Pounds (kg conversion): 190.1 Body Surface Area: 2.036 m2 Body Mass Index: 28.96 kg/m2 Systolic Blood Pressure: 116 mm Hg Diastolic Blood Pressure: 63 mm Hg Peripheral Pulse Rate: 63 bpm Oxygen Saturation: 98 % HRA Pain Present: No Physical Exam GENERAL:??The patient has a normal appearance and that of the stated age. NECK:??Carotids are full and without bruits. ??Thyroid is not enlarged. HEART:??Regular rhythm, no murmurs, gallops, clicks or rubs. LUNGS:??Clear to percussion and auscultation. ABDOMEN:??Bowel sounds are normal. ??There is no tenderness, masses or organomegaly or hernia. EXTREMITIES:??There are good peripheral pulses and no edema. Assessment/Plan ASHD (arteriosclerotic heart disease) Ordered: .31997 Office Visit Level 4 Est ?? Carcinoma of lung Ordered: .08982 Office Visit Level 4 Est ?? Ischemic cardiomyopathy Ordered: .31650 Office Visit Level 4 Est ?? seems to be doing excellent but we will check an echocardiogram in the near future. I will see him in3-4 months. He seems to be doing very well at this point. Problem List/Past Medical History Ongoing Acid reflux disease Acute exacerbation of chronic obstructive airways disease J44.1 ASHD (arteriosclerotic heart disease) I25.10 Asthma Asthma J45.909 Asthma-COPD overlap syndrome Bulging lumbar disc Cataract COPD (chronic obstructive pulmonary disease) COPD (chronic obstructive pulmonary disease) J44.9 Coronary arteriosclerosis in [place] artery Elevated cholesterol E78.00 Gout Ground glass opacity present on imaging of lung H/O: lung cancer High blood pressure High cholesterol History of lung cancer History of pulmonary hypertension HTN (hypertension) I10 Hyperplasia of prostate Ischemic cardiomyopathy Kidney stone Lesion of lung Nocturia Pulmonary HTN Restrictive ventilatory defect Solitary pulmonary nodule Urinary incontinence Historical Cancer of prostate Chest pain Deep vein thrombosis (DVT) Procedure/Surgical History ???CABG x 5 - Coronary artery bypass grafts x 5???CE - Cataract extraction???Hip arthroplasty???lumbar back surg 04/2010???Prostate implantation Medications Advair Diskus 250 mcg-50 mcg inhalation powder, See Instructions albuterol 90 mcg/inh inhaler, 2 puff(s), Inhalation, f0nqfdc, PRN, 3 refills allopurinol 100 mg oral tablet, 1 tablet(s), Oral, daily aspirin 81 mg oral enteric coated tablet, 81 mg= 1 tablet(s), Oral, daily Azithromycin 5 Day Dose Pack 250 mg oral tablet, 1 packet(s), Oral, daily Entresto 49 mg-51 mg oral tablet, 1 tablet(s), Oral, bid, 3 refills fexofenadine 180 mg oral tablet, 180 mg= 1 tablet(s), Oral, daily Flomax 0.4 mg oral capsule, 0.4 mg= 1 capsule(s), Oral, pm after dinner, 3 refills Keflex 250 mg oral capsule, 250 mg= 1 capsule(s), Oral, qhs Lasix 40 mg oral tablet, 40 mg= 1 tablet(s), Oral, daily, 3 refills Metoprolol Tartrate 50 mg oral tablet, 50 mg= 1 tablet(s), Oral, bid, 3 refills Multivitamin oral tablet, 1 tablet(s), Oral, daily omeprazole 20 mg oral delayed release capsule, 1 capsule(s), Oral, daily Potassium Chloride (Eqv-K-Tab) 10 mEq oral tablet, extended release, 10 mEq= 1 tablet(s), Oral, bid, 3 refills predniSONE 10 mg oral tablet, Taper from 40 mg q3day by 10 mg till off, Oral, daily prochlorperazine 10 mg oral tablet, 10 mg= 1 tablet(s), Oral, t6uefnw, PRN, 1 refills rosuvastatin 20 mg oral tablet, 1 tablet(s), Oral, HS Allergies NKA Social History Smoking Status - 02/25/2015 Former smoker Alcohol Current some day alcohol user, Wine, 01/24/2023 Current every day alcohol user, Liquor, Daily, 1 drink, 01/24/2022 Substance Abuse Never drug user, 01/24/2023 Never drug user, 01/24/2022 Tobacco Former smoker, Smokeless Tobacco use: Never. N/A Cessation Counseling. Cigarettes, Stopped age 55 Years., 07/25/2022 Family History ?Mother ?Positive ?Hypertension ?Mother ?Positive ?Breast cancer ?Sister ?Positive ?Arthritis ?Mother ?Positive ?Stroke ?Grandmother/Maternal ?Unknown ?Grandfather/Maternal ?Unknown ?Grandmother/Paternal ?Unknown ?Grandfather/Paternal ?Unknown ? Voice to Text Technology Disclaimer This note may contain text inserted via Dragon or other voice to text assistive technology and stator winder, variances may occur. Patient Care team information Care Team Personnel Name: Abena Saldaña RN Lung Screening Coordinator Position: Population Health Coordinator Member Role: Population Health Coordinator Name: Jeremie Mujica M.D. Position: Physician - Cardiology Member Role: Crown Ironer Operator Heart Failure Address: Address: [address] [place] [phone] Name: Mindi Ma Tomato Grader Position: Population Health Coordinator Member Role: Population Health Coordinator Name: Garland Haywood MD Position: Physician - Electrophysiology Member Role: Specialist Physician Address: Address: [address] [place] [address] Name: Veronika Odonnell RN Position: AMB ONC Nurse Navigator Member Role: Nurse Navigator Name: Luis Fernando oV M.D. Position: Physician - Cardiology Member Role: Primary Care Physician Address: Address: [address] [place] [address] [place] [address]- Name: Laila Burch RN Outpatient Asset Administrator Position: OP Asset Administrator Office Worker Member Role: Asset Administrator Name: Bronson Vaca FOOD TESTER Position: AMB ONC FOOD TESTER Member Role: Nurse Practitioner Address: Address: [address] [place] [address] Name: Lucas Damon Counter Control Operator Position: AMB ONC CPM/MA/RN Member Role: Nurse Navigator Name: Luis Fernando Vo M.D. Position: Physician - Cardiology Med Service: [employer] Consultant Loss Claim Clerk Role: Attending Physician Address: Address: [address] [place] [address] [address] [place] [address]- Care Team Related Persons Name: BRANDY SMALL Address: [address] [facility], [id number]
--- OUTSIDE RECORDS SUMMARY | 2024-11-05 00:09 | XMS_ITS | Continuity of Care Document ---
Author Organization [facility] Address [address] [place] [phone] Care Team Providers Care Dental Claims Processor Name Role Phone Luis Fernando Vo Primary Care Physician Encounter [facility] Financial Number [id number] Date(s): 01/24/22 - 01/24/[address] [phone] Discharge Disposition: Home or Self Care Attending Physician: Gerhard Sultana M.D. Admitting Physician: Gerhard Sultana M.D. Referring Physician: Gerhard Sultana M.D. Allergies, Adverse Reactions, Alerts No Known Allergies Assessment and Plan Future Appointments Appointment Date:04/26/2022 09:30:00 AM Scheduled Provider:Luis Fernando Vo M.D. Location:[facility] [address] Appointment Type:CPA INDUE Established Patient Extended Appointment Date:07/25/2022 11:30:00 AM Scheduled Provider:Susan Montiel MD Location:[facility] [address] Appointment Type:[facility] EP Established Patient Immunizations Given and Recorded Vaccine Date Status Refusal Reason influenza virus vaccine, inactivated 08/29/18 Graham rded influenza virus vaccine, H1N1, inactivat 07/15/17 Recorded pneumococcal 13-valent vaccine 10/14/14 Recorded Medications Advair Diskus 250 mcg-50 mcg inhalation powder 1 puff(s), Inhalation, bid, 180 each, 10, 90, Route to Pharmacy Electronically, [facility], [id number], 175, cm, 11/13/2021 1717, Height, 86.3, kg, 11/13/2021 1717, Weight Start Date: 01/22/22 Status: Ordered albuterol 90 mcg/inh inhaler 2 puff(s), Inhalation, [id number], PRN, 1 each, Inhaler, 3, 3, shortness of breath, Route to Pharmacy Electronically, [facility], [id number] Start Date: 05/31/20 Stop Date: 09/28/20 Status: Ordered Aleve Caplet 220 mg oral tablet 1 tablet(s), Oral, [id number], PRN, 30 tablet(s), Tablet(s), 0, headache Start Date: 11/08/17 Status: Ordered allopurinol 100 mg oral tablet 1 tablet(s), Oral, daily, 90 tablet(s), 3, 0, FOR GOUT PREVENTION., Route to Pharmacy Electronically, [facility], [id number], 175, cm, 05/30/2021 0910, Height, 92.7, kg,05/30/2021 [...] package labeling, Route to Pharmacy Electronically, [facility], [id number], 175.26, cm, 01/24/2022 1301, Height, 97.7, kg... [...] 3, Route to Pharmacy Electronically, [facility], [id number], 175, cm, 11/13/2021 1717, Height, 86.3, kg, 11/13/2021 1717, Weight Start Date: 01/18/22 Status: Ordered Multivitamin oral tablet 1 tablet(s), Oral, daily, 30 tablet(s), 0 Start Date: 11/12/12 Status: Ordered omeprazole 20 mg oral delayed release capsule 1 capsule(s), Oral, daily, 90 capsule(s), 3, 0, Route to Pharmacy Electronically, [facility], [id number], 175, cm, 05/30/2021 0910, Height, 92.7, kg, 05/30/2021 0910, Weight Start Date: 09/25/21 Status: Ordered predniSONE 10 mg oral tablet Taper from 40 mg q3day by 10 mg till off, Oral, daily, 30 tablet(s), 0, 0, Route to Pharmacy Electronically, [facility], [id number], 175.26, cm, 01/24/2022 1301, Height, 97.7, kg, 01/24/2022 1301, Weight Start Date: 01/24/22 Stop Date: 02/05/22 Status: Ordered rosuvastatin 20 mg oral tablet 20 mg, 1 tablet(s), Oral, qhs, 90 tablet(s), Tablet(s), 3, 3, Route to Pharmacy Electronically, [facility], [id number], 175, cm, 05/17/2021 1142, Height, 89.5, kg, 05/17/2021 1142, Weight Start Date: 05/22/21 Status: Ordered Problem List Condition Effective Dates Status Health Status Inform ant Asthma(Confirmed) Active ASHD (arteriosclerotic heart disease) I25.10(Confirmed) Active COPD (chronic obstructive pu lmonary disease)(Confirmed) Active Acute exacerbation of chroni c obstructive airways disease J44.1(Confirmed) Active COPD (chronic obstructive pu lmonary disease) J44.9(Confirmed) Active Coronary arteriosclerosis in [place] artery(Confirmed) Active HTN (hypertension) I10(Confirmed) Active Acid reflux disease(Confirmed) Active Gout(Confirmed) Active H/O: lung cancer(Confirmed) Active High cholesterol(Confirmed) Active Hyperplasia of prostate(Confirmed) Active High blood pressure(Confirmed) Active Kidney stone(Confirmed) Active Cataract(Confirmed) Active Lesion of lung(Confirmed) Active Nocturia(Confirmed) 1 Active Bulging lumbar disc(Confirmed) Active Elevated cholesterol E78.00(Confirmed) Active Asthma J45.909(Confirmed) Active Urinary incontinence(Confirmed) Active 1frequency Procedures Procedure Date Related Diagnosis Body Site Status 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 Completed CE - Cataract extraction Completed Hip arthroplasty 2 Comple chiara lumbar back surg 04/2010 C ompleted Prostate implantation Com pleted [id number] 2left Results Radiology Reports * Exam Date Time Procedure Performing Provider Status 01/24/22 11:[address] CHEST W/O CONTRAST Kyaw Moura design supervisor; Auth (Verified) Notes: (CT CHEST W/O CONTRAST) Reason For Exam: Malignant neoplasm of upper lobe, right bronchus or lung CT CHEST W/O CONTRAST CT CHEST WITHOUT INTRAVENOUS CONTRAST. 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 TECHNIQUE: Contiguous axial CT images of the chest without intravenous contrast per referring physician request. Radiation exposure based on dose length product (DLP) is 395 mGy-cm. Dose lowering CT technique was utilized. COMPARISON: Chest CT scans of 11/10/2020 and 04/27/2020. FINDINGS: Normal cardiac size, changes of aortocoronary bypass grafting and marked coronary artery calcifications. No aortic dilatation or pericardial effusion. There are stable prominent mediastinal lymph nodes and no definite hilar lymph node enlargement. There is a stable irregular density in the anteromedial right upper lobe with partial air bronchograms (series 3, images 50-54). A 4 mm nodule in the inferior right upper lobe at the carinal level (image 41) is unchanged. A new 5 mm nodule is seen in the paravertebral region of the right lung base on image 84. No confluent infiltrate or pleural effusion. Small hiatus hernia, right greater than left exophytic renal cysts and stable left adrenal gland hypertrophy. IMPRESSION: 1. Stable anteromedial right upper lobe focal density. 2. Stable right upper and new lower lobe nodules. . Dictating Physician: Vijay Ibarra M.D. Releasing Physician: Vijay Ibarra M.D. Signature Electronically Authorized Authorized Date/Time: 24-JAN-2022 11:39 am Social History Social History Type Response Alcohol Current every day al cohol user, Liquor, Daily, 1 drink Substance Abuse Never drug user Smoking Status Former smoker;Never; Tobacco Cessation Counseling Requested N/A; Type: Cigarettes; Stopped at age: 55; entered on: 05/17/21 Sex Note * Vijay Ibarra M.D.: VERIFY, VERIFY, PERFORM Event Display: Interpretation: Authored Date: CT CHEST WITHOUT INTRAVENOUS CONTRAST. 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 TECHNIQUE: Contiguous axial CT images of the chest without intravenous contrast per referring physician request. Radiation exposure based on dose length product (DLP) is 395 mGy-cm. Dose lowering CT technique was utilized. COMPARISON: Chest CT scans of 11/10/2020 and 04/27/2020. FINDINGS: Normal cardiac size, changes of aortocoronary bypass grafting and marked coronary artery calcifications. No aortic dilatation or pericardial effusion. There are stable prominent mediastinal lymph nodes and no definite hilar lymph node enlargement. There is a stable irregular density in the anteromedial right upper lobe with partial air bronchograms (series 3, images 50-54). A 4 mm nodule in the inferior right upper lobe at the carinal level (image 41) is unchanged. A new 5 mm nodule is seen in the paravertebral region of the right lung base on image 84. No confluent infiltrate or pleural effusion. Small hiatus hernia, right greater than left exophytic renal cysts and stable left adrenal gland hypertrophy. IMPRESSION: 1. Stable anteromedial right upper lobe focal density. 2. Stable right upper and new lower lobe nodules. . Dictating Physician: Vijay Ibarra M.D. Releasing Physician: Vijay Ibarra M.D. Signature Electronically Authorized Authorized Date/Time: 24-JAN-2022 11:39 am Care Team Personnel Name: Luis Fernando Vo M.D. Address: [address] [facility] [address] [place] [phone]
--- OUTSIDE RECORDS SUMMARY | 2024-11-05 00:09 | XMS_ITS | Encounter Summary ---
Author Organization [facility] Address [address] [place] [address] Care Team Providers Care Wound Care Rn Name Role Phone Luis Fernando Vo MD Primary Care Provider +1- [phone] Reason for Visit * Auth/Cert Specialty Diagnoses / Procedures Referred By Carlyn t Referred To Contact Diagnoses Melanocytic neoplasm of skin MELANOCYTIC NEOPLASM Procedures RECONSTRUCTION/REPAIR NASAL Referral ID Status Reason Start Date Expiration Date Visits Re quested Visits Authorized [id number] 1 1 Encounter Details Date Type Department Care Team (Latest Contact Info) Description 07/05/2021 6:48 AM CDT - 07/05/2021 1:35 PM CDT Hospital Encounter [facility] [address] [place] [address] Cresencio Sotelo MD [address] DEPT [place] [address] Otolaryngology Discharge Disposition: Home or Self Care Social History Tobacco Use Types Packs/Day Years [...] Sign Reading Time Taken Comments Blood Pressure 166/88 07/05/2021 1:15 PM CDT Pulse 70 07/05/2021 1:15 PM CDT Temperature 36.5 ??C (97.7 ??F) [...] appointment for 07/11/21 Contact information: Dan[address] DEPT OF OTOLARYNGOLOGY [facility] [address] Other Instructions: Should you experience any of these symptoms... -Fever over 102 degrees. -Persistent pain, nausea, or vomiting. -Persistent bleeding. -Shortness of breath. -Significant redness or drainage from your incision. -Any other questions or concerns. ...During business hours call: [phone] ...On nights or weekends call: [phone], ask for the ENT resident quality control microbiologist. General Postsurgical Instructions You may expect to [...] injury to your surgical site. Only take ehqp-tbu-ubuuivh or prescription medicines for pain, discomfort, or [...] Document Re-Released: 01/15/2011 ExitCare?? Patient Information ??2011 [employer]. documented in this encounter Medications at Time [...] (OCEAN; BABY AYR) 0.65 % nasal spray [place] 2 (two) sprays into each nostril 4 [...] HX JOINT REPLACEMENT left hip 2000 ??? [place] BIOPSY OF SKIN LESION ??? [place] REPR ANOMAL CORON ART PA ORIGIN BY [...] noted in the HPI and per medical records director notes PHYSICAL EXAM There were no vitals [...] REPORT NAME: Cedric Mckinney : 1935 CSN: [id number] DATE OF OPERATION: 07/05/2021 ATTENDING SURGEON: Cresencio Sotelo MD Pre-Op Diagnosis: -Cutaneous melanocytic proliferation, recurrent Post-Op Diagnosis: -Nasal tip defect Procedure: -Locoregional flap for nasal tip reconstruction -Full thickness skin graft, 1cm -Dorsal hump reduction -Wound prep Senior Javascript Developer Stephany Ochoa MD Indications for procedure: Cedric [...] portions of the surgery. Cresencio Sotelo MD Inhalation Therapy Teacher Facial Plastic and Reconstructive Surgery Otolaryngology- Head [...] Case Report Surgical Pathology Report ? Case: [id number] ? Authorizing Provider: ??Cresencio Sotelo MD ? Collected: ? 07/05/2021 10:01 AM ? Ordering Location: ? [facility] ?Received: ?07/05/2021 01:32 PM ? Pathologist: ? Macie Vo MD ? Specimen: ?Skin, COMPLETION RESECTION NASAL TIP (LONG STITCH TOWARDS DORSUM, SHORT STITCH ? TOWARDS ALA) ? 07/19/2021 10:[address] [facility] Final Diagnosis Skin, nasal tip, long stitch dorsum, short stitch ala, oriented completion resection (A): - Melanocytic hyperplasia without atypia, associated with scar; all margins free of melanocytic hyperplasia (see description) 07/19/2021 10:[address] [facility] Microscopic Description and Comment [...] (A2, A3, A4; controls stained appropriately). No ypvtnlea-bw-juwc or melanoma is seen. The melanocytic hyperplasia is 6 mm from the 12:00 margin, 2 mm from the 3:00 margin, 1 mm from the 6:00 margin, and 2 mm from the 9:00 margin, measured using the MART1/MelanA and H and E stains. The 3:00 tip has scar. The dermis has marked solar elastosis. 07/19/2021 10:[address] [facility] Clinical History The patient is an 85-year-old male with a history of melanoma first diagnosed in 2016 status post staged excision. Patient was referred for slow-Mohs technique ([id number], 06/20/21; [id number], 06/29/21) with final margins negative for lentiginous resjzjah-vv-izjr. The current procedure is for reconstruction. 07/19/2021 10:[address] [facility] Gross Description The requisition [...] A5 3:00, perp. CP 07/19/2021 10:[address] [facility] Disclaimer The performance characteristics of all immunohistochemical and indirect immunofluorescence stains (if any) cited in this report were determined by the Histopathology Laboratory of [facility]. Some of these tests were developed [...] the attending (teaching) pathologist. 07/19/2021 10:[address] [facility] Embedded Images 07/19/2021 10:[address] [facility] Biopsy, Excision TISSUE SPECIMEN FROM SKIN / Unknown 07/05/2021 10:01 AM CDT 07/05/2021 1:32 PM CDT Comment:Pre-op diagnosis: MELANOCYTIC NEOPLASM Cresencio Sotelo MD LAB - PATHOLOGY/CYTO LOGY ORDERABLES [facility] [address] [place] [address], [facility] [phone] documented in this encounter Visit Diagnoses Diagnosis Melanocytic neoplasm of skin documented in this [...] Given 07/05/2021 8:49 AM CDT 1,000 mg ceFAZolin (Ancef) syringe 2,000 mg 2,000 mg [...] Bag/Syringe 07/05/2021 8:10 AM CDT 20 mL/hr ondansetron (Zofran) injection 4 mg 4 mg, [...] 1142 ($ Given - Prov ider: Janette Andres, JOSE) Linked Groups Order Group 1: SALINE LOCK, [...] Pre-op documented in this encounter Care Teams Wound Care Rn Relationship Specialty Start Date End Date Luis Fernando Vo MD [address] [place] [address] [address] [place] [id number] PCP - General Cardiovascular Disease 06/06/21 documented as of this encounter
--- OUTSIDE RECORDS SUMMARY | 2024-11-05 00:09 | XMS_ITS | Clinical Summary ---
Author Organization [facility] [employer] Address [address] [place] [address] Care Team Providers Care Mine Deputy Name Role Phone Luis Fernando Vo MD Primary Care Provider +1- [phone] Source Comments [facility] [employer],non-owned Affiliates and Associated Physician Practices is amultiple site organization consisting of ambulatory clinics and hospital sitesin [place], [place], [place] and [place]. This disclosure is being madepursuant to the Care Everywhere program and may not contain all information available regarding this patient. Last updated 18.[facility] [employer] Allergies No known active allergies Medications * [...] (OCEAN; BABY AYR) 0.65 % nasal spray [place] 2 (two) sprays into each nostril 4 [...] PNEUMOCOCCAL PPSV23 01/09/2016 Pneumococcal Pcv13 Conj 10/14/2014 Family History Medical History Relation Name Comments Cancer Mother breast Hypertension Mother Relation Name Status Comments Father Maternal Grandfather Maternal Grandmother Mother Paternal Grandfather Paternal Grandmother Social History Tobacco Use Types Packs/Day Years [...] Mass Index 28.84 08/08/2021 3:01 PM CDT Plan of Treatment Health Maintenance Due Date Last Done Comments MEDICARE AWV ? 12 MONTHS 1935 DTAP/TDAP/TD VACCINES (1 - Tdap) 1954 ZOSTER VACCINE (1 of 2) 1985 Respiratory Syncytial Virus (RSV) Vaccine Pt: or over 60 yrs (1 - 1-dose 75+ series) 2010 DEPRESSION SCREENING 11/04/2023 COVID-19 VACCINE ( season) 2024 08/28/2021, 12/30/2020, 12/02/2020 INFLUENZA VACCINE (#1) 2024 , 07/21/2020, 09/01/2019, Additional history exists PNEUMOCOCCAL VACCINE 65+ Completed 01/09/2016, 10/04 HEPATITIS B VACCINE Aged Out No longe r eligible based on patient's age to complete this topic HIB VACCINE Aged Out No longer eligi ble based on patient's age to complete this topic HPV VACCINE Aged Out No longer eligi ble based on patient's age to complete this topic MENINGOCOCCAL VACCINE Aged Out No main maksim eligible based on patient's age to complete this topic Care Teams Mine Deputy Relationship Specialty Start Date End Date Luis Fernando Vo MD [address] [place] [address] [address] [place] [id number] PCP - General Cardiovascular Disease 06/06/21
--- OUTSIDE RECORDS SUMMARY | 2024-11-05 00:09 | XMS_ITS | Continuity of Care Document ---
Author Organization [facility] Address [address] [place] [phone] Care Team Providers Care Motor Bus Driver Name Role Phone Baldev Mccray Primary Care Physician [phone] Encounter [facility] Financial Number [id number] Date(s): 08/10/24 - 08/10/[address] [id number] Discharge Disposition: Home or Self Care Attending Physician: Juan Gu MD Admitting Physician: Juan Gu MD Referring Physician: Juan Gu MD Allergies, Adverse Reactions, Alerts No Known Allergies Assessment and Plan Future Appointments Appointment Date:09/28/2024 11:15:00 AM Scheduled Provider:Susan Montiel MD Location:[facility] [address] Appointment Type:CPA EP Established Patient Appointment Date:01/06/2025 11:15:00 AM Scheduled Provider: Location:[facility] DOC CT Appointment Type:CT CHEST Appointment Date:01/11/2025 01:00:00 PM Scheduled Provider:Baldev Mccray MD Location:[facility] [address] Appointment Type:[facility] CPE Complete Physical Exam Appointment Date:02/15/2025 12:30:00 PM Scheduled Provider:Juan Gu MD Location:[facility] Appointment Type:[facility] Follow Up Immunizations Given and Recorded [...] albuterol 90 mcg/inh inhaler 2 puff(s), Inhalation, t4rwxub, PRN, 1 each, Inhaler, 3, 3, shortness of breath, Slow Breath inhaleslowly and deeply , Route to Pharmacy Electronically, [facility] [address] [facility], [id number], 172.72, cm, 07/31/23 10:20:00 CDT, Height, 86.81, kg, 07/31/23 10:20:00 CDT, Weight Start Date: 11/05/23 Status: Ordered allopurinol 100 mg oral tablet 1 tablet(s), Oral, daily, 90 tablet(s), 1, FOR GOUT PREVENTION., Route to Pharmacy Electronically, [facility] [address], [id number], 177, cm, 06/23/24 10:12:00 CDT, Height, 90.9,kg, [...] the prescribing physician., Route to Pharmacy Electronically, [facility] [address] [place] [facility], [id number], 177, cm, 02/03/24 11:23:00 CDT, Height, 91.81, kg, 02/03/24 11:23:00 CDT, Weight Start Date: 02/03/24 Status: Ordered Entresto 49 mg-51 mg oral tablet 1 tablet(s), Oral, bid, 180 tablet(s), 0, Route to Pharmacy Electronically, [facility] STORE [address], [id number], 177, cm, 06/23/24 10:12:00 CDT, Height, 90.9, kg, 06/23/24 10:12:00 CDT, Weight Start Date: 07/07/24 Status: Ordered fexofenadine 180 mg oral tablet 180 mg, 1 tablet(s), Oral, daily, 30 tablet(s), Tablet(s), 0 Start Date: 11/08/17 Status: Ordered Flomax 0.4 mg oral capsule 0.4 mg, 1 capsule(s), Oral, pm after dinner, 90 capsule(s), Capsule(s), 3, 3, Route to Pharmacy Electronically, [facility], [id number], 172.72, cm, 11/06/2022 1120,Height, 89.09, kg, 11/06/2022 1120, Weight Start Date: 11/09/22 Stop Date: 11/04/23 Status: Ordered Keflex 250 mg oral capsule 250 mg, 1 capsule(s), Oral, qhs, 0 Start Date: 09/26/22 Status: Ordered Lasix 20 mg oral tablet 20 mg, 1 tablet(s), Oral, daily, 90 tablet(s), Tablet(s), 3, 3, Route to Pharmacy Electronically, [facility] [place] [facility], [id number], 177, cm, 02/03/24 11:23:00 CDT, Height, 9 [...] capsule(s), 3, 3, Route to Pharmacy Electronically, [facility] [address] [place] [facility], [id number], 172.72, cm, 07/31/23 10:20:00 CDT, Height, 86.81, kg, 07/31/23 10:20:00 CDT, Weight Start Date: 10/30/23 Status: Ordered Potassium Chloride (Eqv-K-Tab) 10 mEq oral tablet, extended release 10 mEq, 1 tablet(s), Oral, bid, 180 tablet(s), 3, 3, Route to Pharmacy Electronically, [place] [id number], [id number], 172.72, cm, 11/06/2022 1120, Height, 89.09, kg, 11/06/2022 1120, Weight Start Date: 11/09/22 Stop Date: 11/04/23 Status: Ordered prochlorperazine 10 mg oral tablet 10 mg, 1 tablet(s), Oral, daily, PRN, 30 tablet(s), Tablet(s), 1, 1, nausea, Route to Pharmacy Electronically, [facility] [address] [place] [facility], [id number], 177, cm, 01/03/24 13:03:00 HEAD GOLF PROFESSIONAL, Height, 91.2, kg, 01/03/24 13:03:00 HEAD GOLF PROFESSIONAL, Weight Start Date: 01/03/24 Stop Date: 03/03/24 Status: Ordered rosuvastatin 20 mg oral tablet 1 tablet(s), Oral, HS, 90 tablet(s), 0, Route to Pharmacy Electronically, [facility] [address], [id number], 177, cm, 02/03/24 11:23:00 CDT, Height, 91.81, kg, 02/03/24 11:23:00 CDT, Weight Start Date: 06/19/24 Status: Ordered Tessalon Perles 100 mg oral capsule 100 mg, 1 capsule(s), Oral, tid, PRN, 30 capsule(s), Capsule(s), 0, 0, cough, Route to Pharmacy Electronically, [facility] [address] [place] [facility], [id number], 177.8, cm, 07/14/24 11:38:00 CDT, Height, 92.3, kg, 07/14/24 11:38:00 CDT, Weight Start Date: 07/20/24 Status: Ordered Trelegy Ellipta 100 mcg-62.5 mcg-25 mcg/inh inhalation powder 1 puff(s), Inhalation, daily, 1 each, Inhaler, 0, 0, Fast Breath inhale quickly and deeply, Route to Pharmacy Electronically, [facility] [address] [place] [facility], [id number], 177.8, cm, 07/14/24 11:38:00 CDT, Height, 92.3, [...] AND DEEPLY, 90, Route to Pharmacy Electronically, 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 HTN (hypertension) I10 Confirmed [...] 04/2010 C ompleted Prostate implantation Com pleted 50456 2left Social History Social History Type Response [...] Event Display: Authorization to Treat Authored Date: [id number] * Event Display: Authorization to Treat Authored Date: [id number] * Tomy Hernandez Health Landscaper: PERFORM Event Display: ROI_Correspondence Authored Date: [id number] * Event Display: ROI_Correspondence * Event Display: ROI_Correspondence * Event Display: ROI_Correspondence Patient Care team information Care Team Personnel Name: Cande Malloy CUSHION MAKER Position: AMB CUSHION MAKER/PA Member Role: Nurse Practitioner Address: Address: [address] [place] [address] [place] [phone] [place] Name: Gemma Linder Cold Storage Worker Position: Population Health Coordinator Member Role: Population Health Coordinator Name: Gerhard Sultana MD Position: Physician - Radiation Oncology Member Role: Radiation Oncologist Address: Address: [address] [place] [address] [place] Name: Jeremie Mujica M.D. Position: Physician - Cardiology Member Role: Loaders Heart Failure Address: Address: [address] [place] [phone] [place] Name: Garland Haywood MD Member Role: Specialist Physician Name: Veronika Odonnell RN Position: AMB ONC Nurse Navigator Member Role: Nurse Navigator Name: Baldev Mccray MD Position: Physician - Internal Medicine Member Role: Primary Care Physician Address: Address: [address] [place] [address] [address] [place] [address] [place] Name: Laila Burch RN Outpatient Computer Bookkeeper Position: OP Computer Bookkeeper Environmental Coordinator Member Role: Computer Bookkeeper Name: Bronson Vaca CUSHION MAKER Position: AMB ONC CUSHION MAKER Member Role: Nurse Practitioner Address: Address: [address] [place] [address] [place] Name: Lucas Damon Smoking Tobacco Packer Hand Position: AMB ONC CPM/MA/RN Member Role: Nurse Navigator Name: Juan Gu MD Position: Physician - Cardiology Med Service: Cement Loader Motor Bus Driver Role: Referring Physician Address: Address: [address] [facility] [address] Care Team Related Persons Name: BRANDY SMALL Address: home [address] [facility] [phone]
--- OUTSIDE RECORDS SUMMARY | 2024-11-05 00:09 | XMS_ITS | Encounter Summary ---
Author Organization [facility] Address [address] [facility] [place] [address] Care Team Providers Care Production Editor Name Role Phone Luis Fernando Vo MD Primary Care Provider +1- [phone] Encounter Details Date Type Department Care Team (Late st Contact Info) Description 08/21/2023 Lab Requisition [facility] [address] [place] [address] Chiki Nicholson MD [address] [place] [address] Social History Tobacco Use Types [...] Priority Date/Time Associated Diagnosis Comments DERMATOPATHOLOGY Routine 08/20/2023 12:0 0 AM CDT documented in this encounter Results * DERMATOPATHOLOGY (08/20/2023 12:00 AM CDT) Case Report Dermatopathology Report ? Case: [id number] ? Authorizing Provider: ??Chiki Nicholson MD ?Collected: ? 08/20/2023 12:00 AM ? [facility] ? Received: ?08/21/2023 01:57 PM ? Pathologist: ? Ileana Sandoval MD ? Specimen: ?Skin, right volar mid FA ? 3 3:43 PM CDT DERMATOPATHOLOGY LABORATORY Final Diagnosis Specimen A. 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 The specimen consists of a shave biopsy measuring 12j78y2 mm. Jar 0. 3:43 PM CDT DERMATOPATHOLOGY LABORATORY Microscopic Description Specimen A. SKIN, right volar mid FA: There is a cup-shaped lesion with central hyperkeratosis with elements of parakeratosis. The epithelial cells making up the kirkpatrick of the cup show abundant eosinophilic cytoplasm. There is immaturity of the keratinocytes in the outermost layers of this epithelium. 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 3:43 PM CDT DERMATOPATHOLOGY LABORATORY Disclaimer An external and internal positive and negative controls are appropriate for the histochemical, immunohistochemical and immunofluorescence stain(s) in this case (if any), except where stated explicitly. The performance characteristics of the stain(s) cited in this report were developed and its performance characteristic determined by the Dermatopathology Laboratory at [facility], directed by Dr. Azalea Peters. These tests need not be, and therefore are not, approved by the [place] Food and Drug Administration. The tests are used for clinical purposes. Billing Codes Specimen Charges Stain Charges 77952 1 3:43 PM CDT DERMATOPATHOLOGY LABORATORY Embedded Images 3:43 PM CDT DERMATOPATHOLOGY LABORATORY Pathology/Cytolog y TISSUE SPECIMEN FROM SKIN / Unknown 08/20/2023 08/21/2023 1:57 PM CDT Chiki Nicholson MD LAB - PATHOLOGY/CYTO LOGY ORDERABLES DERMATOPATHOLOGY LABORATORY [facility] - Department of Dermatology [place] [id number] [facility], [address]rd Floor [address] [phone] documented in this encounter Visit Diagnoses Not on filedocumented in this encounter Care Teams Production Editor Relationship Specialty Start Date End Date Luis Fernando Vo MD [address] [place] [address] [place] [address] PCP - General Cardiovascular Disease 06/06/21 documented as of this encounter
--- OUTSIDE RECORDS SUMMARY | 2024-11-05 00:09 | XMS_ITS | Encounter Summary ---
Author Organization [facility] Address [address] [place] [address] Care Team Providers Care Billing Checker Name Role Phone Luis Fernando Vo MD Primary Care Provider [phone]- [phone] Reason for Visit * Reason Comments Surgical Followup Encounter Details Date Type Department Care Team (Late st Contact Info) Description 08/08/2021 2:45 PM CDT Office Visit [facility] Otolaryngology [address] [place] [address], [place] [id number] Cresencio Sotelo MD [address] [place] [address] [place] [address] Melanocytic neoplasm of skin (Primary Dx) Social [...] on file documented as of this encounter Last Filed Vital Signs Vital Sign Reading Time Taken Comments Blood Pressure 140/73 08/08/2021 3:01 PM CDT Pulse 72 08/08/2021 3:01 PM CDT Temperature - - Respiratory Rate - - Oxygen Saturation - - Inhaled Oxygen Concentration - - Weight 91.2 kg (201 lb) 08/08/2021 3:01 PM CDT Height 177.8 cm (5' 10 ) 08/08/2021 3:01 PM CDT Body Mass Index 28.84 08/08/2021 3:01 PM CDT documented in this encounter Functional Status [...] this encounter Patient Instructions * Patient Instructions* Faraz Severiano - 08/08/2021 3:03 PM CDT Thank you for visiting [facility] Otolaryngology - Head & Neck Surgery. We appreciate your confidence in allowing us to participate in your health care. You may receive a survey about your visit with us today. Making our patients happy isn???t just happy talk; it???s ourmission. Please tell us if we made the right impression on you- and how we can serve you better. Please SAVE the information below, it will assist you when it???s time for you to contact us. ??? To MAKE - CHANGE - CANCEL an office appointment If you become ill, need to be seen before your next scheduled appointment, or need to cancel or reschedule an appointment, please call our office at [phone] Saturday through Saturday from 8:30 am to4:30 pm. You can also request a routine appointment through your [email or web address] account. ??? Prescription Refills Contact your pharmacy to request all refills. The pharmacy will need to fax the request to us at . Please allow a minimum of 48-72 hours for your prescription to be completed. Your pharmacy will notify you when your prescription is ready to be picked up. ??? Medical Emergency / After Hours Contact Information If you have a medical emergency, please call 911 or go to the nearest emergency room. For urgent medical calls which cannot wait until the office opens, please call the medical exchangeat and ask the paving machine operator to page the ENT physician automation qa lead. *Caller ID blocking service will need to be turned off for your call to be returned. We also specialize in Hearing Aids, Allergy testing, swallowing disorders, voice problems, cancer diagnosis, and so much more. Visit our website at [email or web address] for information about our practice and an interactive health encyclopedia. documented in this encounter Progress Notes * Cresencio Sotelo MD - 08/08/2021 3:14 PM CDT History of Present Illness: 85 year old who presents for postoperative visit. The patient underwent dorsal nasal flap with fullthickness skin graft for columella on 07/05/21 Today the patient reports no major complaints and is healing well. His has been doing local wound care. His reports 1 week ago she though the dorsum skin looked more red and suspected infection. The picture does not show over cellulitis. There was no associated pain. Review of Systems: ROS x 14 was [...] (OCEAN; BABY AYR) 0.65 % nasal spray [place] 2 (two) sprays into each nostril 4 [...] tip wound: clean, dry, intact, no drainage. Skin graft did not survive and the skin is healing slowly secondarily, covered by a scab, 1cm wide, no signs of infection Assessment and Plan: The patient is a 85 year old male who presents today for a post operative visit. The patient is s/p dorsal nasal flap with full thickness skin graft for columella on 07/05/21. We discussed that the skin graft will slowly slough off and this small portion of the wound will continue to heal secondarily. Otherwise it is looking good. We discussed wound care with Vaseline. All of the patient's questions were answered to the best of my ability. Follow up in 4-6 weeks for wound check. * Severiano Ruth - 08/08/2021 3:03 PM CDT Review of Systems Cedric reports the following:Nose: no symptoms documented in this encounter Plan of Treatment Not on file documented as of this encounter Visit Diagnoses Diagnosis Melanocytic neoplasm of skin- Primary documented in this encounter Care Teams Billing Checker Relationship Specialty Start Date End Date Luis Fernando Vo MD [id number] [place] [address] PCP - General Cardiovascular Disease 06/06/21 documented as of this encounter
--- OUTSIDE RECORDS SUMMARY | 2024-11-05 00:09 | XMS_ITS | Encounter Summary ---
Author Organization [facility] Address [address] [place] [address] Care Team Providers Care Storeroom Clerk Name Role Phone Luis Fernando Vo MD Primary Care Provider +1- [phone] Reason for Visit * Reason Comments Surgical Followup Encounter Details Date Type Department Care Team (Late st Contact Info) Description 07/11/2021 3:45 PM CDT Office Visit [facility] Otolaryngology [address] [place] [address], [place] [id number] Cresencio Sotelo MD [address] [place] [address] [place] [address] Melanocytic neoplasm of skin (Primary Dx) Social [...] Sign Reading Time Taken Comments Blood Pressure 159/83 07/11/2021 3:30 PM CDT Pulse 80 07/11/2021 3:30 PM CDT Temperature - - Respiratory Rate - - Oxygen Saturation - - Inhaled Oxygen Concentration - - Weight 91.3 kg (201 lb 3.2 oz) 07/11/2021 3:30 P M CDT Height 177.8 cm (5' 10 ) 07/11/2021 3:30 PM CDT Body Mass Index 28.87 07/11/2021 3:30 PM CDT documented in this encounter Functional [...] this encounter Patient Instructions * Patient Instructions* Antonieta Gruber - 07/11/2021 3:31 PM CDT Thank you for visiting [facility] Otolaryngology - Head & Neck Surgery. We [...] an appointment, please call our office at [phone] Saturday through Saturday from 8:30 am to4:30 pm. You can also request a routine appointment through your [employer] account. ??? Prescription Refills Contact your pharmacy [...] call the medical exchangeat and ask the radio operator to page the ENT physician motion picture camera operator. *Caller ID blocking service will need to be turned off for your call to be returned. We also specialize in Hearing Aids, Allergy testing, swallowing disorders, voice problems, cancer diagnosis, and so much more. Visit our website at [email or web address] for information about our practice and an interactive health encyclopedia. Thank you for visiting [facility] Otolaryngology - Head & Neck Surgery. We [...] an appointment, please call our office at [phone] Saturday through Saturday from 8:00 am to4:30 pm. You can also request a routine appointment through your [employer] account. ??? Prescription Refills Contact your pharmacy to request all refills. The pharmacy will need to fax the request to us at . Please allow a minimum of 48-72 hours for your prescription to be completed. ??? Medical Emergency / After Hours Contact Information If you have a medical emergency, please call 911 or go to the nearest emergency room. For urgent medical calls, which cannot wait until the office opens, please call the medical exchange at and ask the radio operator to page the ENT physician motion picture camera operator. *Caller ID blocking service will need to be turned off for your call to be returned. We also specialize in Hearing Aids, Allergy testing, swallowing disorders, voice problems, cancer diagnosis, and so much more. Visit our website at [email or web address] for information about our practice and an interactive health encyclopedia. Thank you for visiting [facility] Otolaryngology - Head & Neck Surgery. We [...] an appointment, please call our office at [phone] Saturday through Saturday from 8:00 am to4:30 pm. You can also request a routine appointment through your [employer] account. ??? Prescription Refills Contact your pharmacy to request all refills. The pharmacy will need to fax the request to us at . Please allow a minimum of 48-72 hours for your prescription to be completed. ??? Medical Emergency / After Hours Contact Information If you have a medical emergency, please call 911 or go to the nearest emergency room. For urgent medical calls, which cannot wait until the office opens, please call the medical exchange at and ask the radio operator to page the ENT physician motion picture camera operator. *Caller ID blocking service will need to be turned off for your call to be returned. We also specialize in Hearing Aids, Allergy testing, swallowing disorders, voice problems, cancer diagnosis, and so much more. Visit our website at [email or web address] for information about our practice and an interactive health encyclopedia. documented in this encounter Progress Notes * Cresencio Sotelo MD - 07/11/2021 4:18 PM CDT History of Present Illness: 85 year old who presents for postoperative visit. The patient underwent dorsal nasal flap with fullthickness skin graft for columella on 07/05/21 Today the patient reports no major complaints and is healing well. His has been doing local wound care. He had some minor post op bleeding. Review of Systems: ROS x 14 was [...] 20 mg by mouth once daily ??? saline nasal spray (OCEAN; BABY AYR) 0.65 % nasal spray [place] 2 (two) sprays into each nostril 4 [...] dorsal nasal flap well vascularized. Minimal crusting, expected swelling Nasal tip wound: clean, dry, intact, no drainage. Xeroform bolster in place. Skin graft underneath appears to be healing. Assessment and Plan: The patient is a 85 year old male who presents today for a post operative visit. The patient is s/p dorsal nasal flap with full thickness skin graft for columella on 07/05/21. We discussed wound care. All of the patient's questions were answered to the best of my ability. Follow up in 1 week for bolster removal. * Antonieta Gruber - 07/11/2021 3:31 PM CDT Review of Systems [facility] reports the following:no symptoms documented in this encounter Plan of Treatment Not on file documented as of this encounter Visit Diagnoses Diagnosis Melanocytic neoplasm of skin- Primary documented in this encounter Care Teams Storeroom Clerk Relationship Specialty Start Date End Date Luis Fernando Vo MD [address] [facility] [address] [place] [id number] PCP - General Cardiovascular Disease 06/06/21 documented as of this encounter
--- OUTSIDE RECORDS SUMMARY | 2024-11-05 00:09 | XMS_ITS | Patient Health Summary ---
Author Organization [facility] Address [address] [place] [address] Care Team Providers Care Senior Benefits Analyst Name Role Phone Luis Fernando Vo MD Primary Care Provider [phone] Note from [facility],non-owned Affiliates and Associated Physician Practices is amultiple site organization consisting of ambulatory clinics and hospital sitesin [place], [place], [place] and [place]. This disclosure is being madepursuant to the Care Everywhere program and may not contain all information available regarding this patient. Last updated 18.[facility] Allergies No known active allergies Medications * Be aware that medications may not be up to date on this document. Alwaysverify current medications with the patient. * simvastatin (ZOCOR) 20 MG tablet(Started 06/04/2017) * fexofenadine (JENNIFER) 60 MG tablet(Started 07/16/2017) Take by mouth. * fesoterodine CR 24hr (TOVIAZ) 4 MG tablet(Started 07/16/2017) Take by mouth. * cephalexin (KEFLEX) 250 MG capsule(Started 04/20/2021) Take 250 mg by mouth at bedtime * allopurinol (ZYLOPRIM) 100 MG tablet Take 100 mg by mouth once daily * tamsulosin (FLOMAX) 0.4 MG capsule Take 0.4 mg by mouth once daily * omeprazole EC (PRILOSEC OTC) 20 MG tablet Take 20 mg by mouth once daily * hydroCHLOROthiazide (HYDRODIURIL) 25 MG tablet Take 25 mg by mouth once daily * aspirin (ASPIRIN) 81 MG chew tablet Take 325 mg by mouth once daily * ADVAIR DISKUS 250-50 MCG/DOSE inhaler(Started 02/15/2021) Inhale 1 puff by mouth 2 times daily * saline nasal spray (OCEAN; BABY AYR) 0.65 % nasal spray(Started 07/05/2021) [place] 2 (two) sprays into each nostril 4 times daily as needed for Dry Nose * albuterol HFA (PROVENTIL;VENTOLIN;PROAIR) 108 (90 Base) MCG/ACT inhaler (Started 07/18/2021) INHALE 2 PUFFS BY MOUTH EVERY 4 HOURS NEEDED FOR SHORTNESS OF BREATH FOR 30 DAYS * prochlorperazine (COMPAZINE) 10 MG tablet(Started 07/19/2021) TAKE 1 TABLET BY MOUTH TWICE A DAY NEEDED FOR NAUSEA Active Problems No known active problems Immunizations * INFLUENZA VACCINE, TRIV. (AFLURIA, FLUZONE TRIVALENT; 6MO+) (IIV3)(Given 08/21/2017, 07/18/2015) * Covid Moderna primary monovalent 12+ yr 0.5mL(Given 08/28/2021, 12/30/2020, 12/02/2020) * INFLUENZA VACCINE, ADJUVANTED, QUADR. (FLUAD QUADRIVALENT; 65Y+) (AIIV4)(Given 08/01/2021) * INFLUENZA VACCINE, ADJUVANTED, TRIV. (FLUAD TRIVALENT; 65Y+) (AIIV3)(Given 09/01/2019) * INFLUENZA VACCINE, QUADR. (FLUZONE; FLULAVAL; FLUARIX; AFLURIA QUADRIVALENT; 6MO+), 0.5 ML (IIV4)(Given 07/21/2020) * PNEUMOCOCCAL PPSV23(Given 01/09/2016) * Pneumococcal Pcv13 Conj(Given 10/14/2014) Social History Tobacco Use Types Packs/Day Years [...] Mass Index 28.84 08/08/2021 3:01 PM CDT Procedures * DERMATOPATHOLOGY(Performed 08/20/2023) * DERMATOPATHOLOGY(Performed 02/05/2023) * CARDIAC EKG ORDER(Performed 07/07/2021) * PATHOLOGY TISSUE(Performed 07/05/2021) Performed for Melanocytic neoplasm of skin * RECONSTRUCTION/REPAIR NASAL(Performed 07/05/2021) Performed for Melanocytic neoplasm of skin * ENDOTRACHEAL TUBE NOTE(Performed 07/05/2021) * PROC EXCISION SKIN FACE FACIAL MALIGNANT(Performed 06/27/2021) 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) * DERMATOPATHOLOGY(Performed 06/27/2021) 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) * PATHOLOGY/CYTOLOGY REPORT ORDER(Performed 06/27/2021) * PROC EXCISION SKIN FACE FACIAL BENIGN(Performed 06/20/2021) Performed for Neoplasm of uncertain behavior of skin * DERMATOPATHOLOGY(Performed 06/20/2021) Performed for Neoplasm of uncertain behavior of skin * TYPE + SCREEN PANEL(Performed 06/15/2021) Performed for Pre-op evaluation * BASIC METABOLIC PANEL (CALCIUM TOTAL)(Performed 06/15/2021) Performed for Pre-op evaluation * CBC W/O DIFFERENTIAL(Performed 06/15/2021) Performed for Pre-op evaluation * EKG 12-LEAD(Performed 06/15/2021) Performed for Pre-op evaluation * DERMATOPATHOLOGY(Performed 05/01/2021) * DERMATOPATHOLOGY(Performed 01/12/2020) * DERMATOPATHOLOGY(Performed 04/28/2019) * DERMATOPATHOLOGY(Performed 02/10/2019) * DERMATOPATHOLOGY(Performed 01/20/2019) * DERMATOPATHOLOGY(Performed 09/23/2018) * DERMATOPATHOLOGY(Performed 05/29/2017) * DERMATOPATHOLOGY(Performed 08/17/2016) * DERMATOPATHOLOGY(Performed 08/17/2016) * PATHOLOGY/GENETICS HISTORICAL-ONBASE(Performed 03/29/2016) * DERMATOPATHOLOGY(Performed 03/20/2016) * PATHOLOGY/GENETICS HISTORICAL-ONBASE(Performed 03/20/2016) * PATHOLOGY/GENETICS HISTORICAL-ONBASE(Performed 03/20/2016) * DERMATOPATHOLOGY(Performed 03/13/2016) * PATHOLOGY/GENETICS HISTORICAL-ONBASE(Performed 03/13/2016) * PATHOLOGY/GENETICS HISTORICAL-ONBASE(Performed 03/13/2016) * PATHOLOGY/GENETICS HISTORICAL-ONBASE(Performed 03/13/2016) * DERMATOPATHOLOGY(Performed 03/06/2016) * PATHOLOGY/GENETICS HISTORICAL-ONBASE(Performed 03/06/2016) * PATHOLOGY/GENETICS HISTORICAL-ONBASE(Performed 03/06/2016) * DERMATOPATHOLOGY(Performed 02/21/2016) * DERMATOPATHOLOGY(Performed 01/26/2016) * DERMATOPATHOLOGY(Performed 11/20/2012) * DERMATOPATHOLOGY(Performed 06/24/2012) * DERMATOPATHOLOGY(Performed 09/11/2011) * DERMATOPATHOLOGY(Performed 07/11/2011) * DERMATOPATHOLOGY(Performed 03/20/2011) Results * DERMATOPATHOLOGY (08/20/2023 12:00 AM CDT) Only the most recent of23 resultswithin the time period is included. Case Report Dermatopathology Report ? Case: [id number] ? Authorizing Provider: ??Chiki Nicholson MD ?Collected: ? 08/20/2023 12:00 AM ? [facility] ? Received: ?08/21/2023 01:57 PM ? Pathologist: ? Ileana Sandoval MD ? Specimen: ?Skin, right volar mid FA ? 3 3:43 PM CDT DERMATOPATHOLOGY LABORATORY Final Diagnosis Specimen A. 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 The specimen consists of a shave biopsy measuring [id number] mm. Jar 0. 3 3:43 PM CDT DERMATOPATHOLOGY LABORATORY Microscopic Description [...] marked fibroplasia with a mixed inflammatory infiltrate. 3 3:43 PM T DERMATOPATHOLOGY LABORATORY Disclaimer An external and internal positive and negative controls are appropriate for the histochemical, immunohistochemical and immunofluorescence stain(s) in this case (if any), except where stated explicitly. The performance characteristics of the stain(s) cited in this report were developed and its performance characteristic determined by the Dermatopathology Laboratory at [facility], directed by Dr. Azalea Peters. These tests need not be, and therefore are not, approved by the [place] Food and Drug Administration. The tests are used for clinical purposes. Billing Codes Specimen Charges Stain Charges 91924 1 3 3:43 PM CDT DERMATOPATHOLOGY LABORATORY Embedded Images 3 3:43 PM CDT DERMATOPATHOLOGY LABORATORY Pathology/Cytolog y TISSUE SPECIMEN FROM SKIN / Unknown 08/20/2023 08/21/2023 1:57 PM CDT Chiki Nicholson MD LAB - PATHOLOGY/CYTO LOGY ORDERABLES DERMATOPATHOLOGY LABORATORY [facility] - Department of Dermatology [address], [address] [phone] * CARDIAC EKG ORDER (07/07/2021 1:08 PM CDT) Narrative 07/07/2021 1:08 PM CDT Ordered by an unspecified provider. Scanned Document CARDIAC SERVICES ORD ERABLES * PATHOLOGY TISSUE (07/05/2021 10:01 AM CDT) Case Report Surgical Pathology Report ? Case: [id number] ? Authorizing Provider: ??Cresencio Sotelo MD ? Collected: ? 07/05/2021 10:01 AM ? Ordering Location: ? [facility] ?Received: ?07/05/2021 01:32 PM ? Pathologist: ? Macie Vo MD ? Specimen: ?Skin, COMPLETION RESECTION NASAL TIP (LONG STITCH TOWARDS DORSUM, SHORT STITCH ? TOWARDS ALA) ? 07/19/2021 10:16 AM [facility] PATHOLOGY LAB Final Diagnosis Skin, nasal tip, long stitch dorsum, short stitch ala, oriented completion resection (A): - Melanocytic hyperplasia without atypia, associated with scar; all margins free of melanocytic hyperplasia (see description) 07/19/2021 10:16 AM [facility] PATHOLOGY LAB Microscopic Description and Comment [...] (A2, A3, A4; controls stained appropriately). No vkcoqxbq-zl-iscw or melanoma is seen. The melanocytic hyperplasia is 6 mm from the 12:00 margin, 2 mm from the 3:00 margin, 1 mm from the 6:00 margin, and 2 mm from the 9:00 margin, measured using the MART1/MelanA and H and E stains. The 3:00 tip has scar. The dermis has marked solar elastosis. 07/19/2021 10:16 AM [facility] PATHOLOGY [facility] Clinical History The patient is an 85-year-old male with a history of melanoma first diagnosed in 2016 status post staged excision. Patient was referred for slow-Mohs technique ([id number], 06/20/21; [id number], 06/29/21) with final margins negative for lentiginous azsobfsz-ps-sern. The current procedure is for reconstruction. 07/19/2021 10:16 AM [facility] PATHOLOG[facility] Gross Description The requisition [...] A5 3:00, perp. CP 07/19/2021 10:16 AM [facility] PATHOLOG[facility] Disclaimer The performance characteristics of all immunohistochemical and indirect immunofluorescence stains (if any) cited in this report were determined by the Histopathology Laboratory of [facility]. Some of these tests were developed [...] the attending (teaching) pathologist. 07/19/2021 10:16 AM [facility] PATH[facility] Embedded Images 07/19/2021 10:16 AM [facility] PATH[facility] Biopsy, Excision TISSUE SPECIMEN FROM SKIN / Unknown 07/05/2021 10:01 AM CDT 07/05/2021 1:32 PM CDT Comment:Pre-op diagnosis: MELANOCYTIC NEOPLASM Cresencio Sotelo MD LAB - PATHOLOGY/CYTO LOGY ORDERABLES [facility] PATHOLOGY LAB [address] [place] [address], [facility] [phone] * ETT LINE PERFORMABLE (07/05/2021 9:38 AM CDT) Narrative Rosaline Willingham APRN-CRNA - 07/05/2021 9:38 AM CDT Rosaline Willingham APRN-CRNA ? 07/05/2021 ??9:39 AM Endotracheal Tube Placement: ? Patient Location: OR. Procedure: intubation ([id number]). Procedure Section: ?? Sedation: under general anesthesia. [...] Staff Section ?? Anesthesia Provider: Rosaline Willingham APRN-CRNA, Performed the procedure Micaela Khan MD GENERAL ANESTHESIA ORDERABLES * PROC EXCISION SKIN FACE FACIAL MALIGNANT (06/27/2021 3:20 PM CDT) Narrative Charles Sotelo MD - 06/27/2021 3:20 PM CDT Charles Sotelo MD ? 06/30/2021 ??5:16 PM Date of Service: 06/27/21 Surgery: Slow Mohs staged excision, subsequent stage Stage #: 2 Tumor Type: melanoma in situ Location: Nasal tip Derm-Path Pre-Op Size: 3.0x3.0 cm Post-Op Size: 4.0x4.0 cm Surgical margins: 0.5 cm Level of Defect: adipose Repair Type: path pending with Cresencio Sotelo MD Primary Surgeon: Charles Sotelo MD Knockout Worker: Marlin Margins positive on previous stage: 12-3 o'clock INDICATIONS: The risks of bleeding, infection, discomfort, incomplete removal, nerve damage, and scar formation were explained to the patient. The possible need for additional stages, additional surgical procedures or treatment may be recommended based on the pathology results. The patient understands that the prolene suture needs to remain in place until the margins are clear of tumor. Reconstruction will occur after tumor clearance with Dr. Cresencio Sotelo. All questions were answered. After informed consent and appropriate instructions, the patient underwent the procedure as follows: DESCRIPTION OF PROCEDURE: The patient was positioned in the operating chair. The positive margin was identified and the appropriate margins were outlined with a marker. A photo was taken for mapping. The same area was then prepped with chlorhexidine and infiltrated with 1% lidocaine with epinephrine 1:100,000 buffered with 1:10 sodium bicarbonate. Then the peripheral margin was scored deeply to fat and planned sections were notched at the margin for mapping. The notches were then marked on the specimen. The peripheral margin incision was then extended to the level of subcutaneous fat with a 15 blade scalpel and the positive margin excised. The specimen and notches were mapped onto a worksheet for future reference. Hemostasis was obtained with monopolar electrodesiccation. The margin of the specimen was sectioned as planned, processed in Mohs fashion, and sent for permanent section assessment of the margin. Running proline sutures were placed to nasim the margin. The wound was cleansed and covered with petrolatum ointment. Wound care instructions were given verbally and on paper. The patient is to return in 1 week for further surgery pending histopathologic review. Nina Isaac MD,[facility] Dermatology Resident, PGY-3 ?? Charles Sotelo MD PROCEDURE/MINOR SURG ICAL ORDERABLES * PATHOLOGY/CYTOLOGY REPORT ORDER (06/27/2021) 06/27/2021 Narrative 06/27/2021 Ordered by an unspecified provider. Scanned Document LAB - PATHOLOGY/CYTO LOGY ORDERABLES * PROC EXCISION SKIN FACE FACIAL BENIGN (06/20/2021 3:26 PM CDT) Narrative Charles Sotelo MD - 06/20/2021 3:26 PM CDT Charles Sotelo MD ? 06/27/2021 ??8:18 AM Date of Service: 06/20/2021 Surgery: Slow Mohs staged excision Stage #: 1 Tumor Type: Lentiginous melanocytic proliferation Location: nasal tip Derm-Path Pre-Op Size: 2.0x2.0 cm Post-Op Size: 3.0x3.0 ??cm Surgical margins: 0.5cm Level of Defect: adipose Repair Type: path pending Primary Surgeon: Charles Sotelo MD Knockout Worker: Tate INDICATIONS: The risks of bleeding, infection, discomfort, incomplete removal, nerve damage, and scar formation were explained to the patient. The possible need for additional stages, additional surgical procedures or treatment may be recommended based on the pathology results. The patient understands that the surgical site may remain open until the margins are clear of tumor. Evaluation for reconstruction will occur after tumor clearance. All questions were answered. After informed consent and appropriate instructions, the patient underwent the procedure as follows: DESCRIPTION OF PROCEDURE: The patient was positioned in the operating chair. The lesion was identified and the appropriate margins were outlined with a marker. A photo was taken for mapping. The same area was then prepped with chlorhexidine and infiltrated with 1% lidocaine with epinephrine 1:100,000 buffered with 1:10 sodium bicarbonate. Then the perimeter of the lesion ??was scored deeply to fat followed by deeply scoring the peripheral margin and planned sections with notching of the margin for mapping. The notches were then marked as well as the 12 o'clock position on the specimen. The peripheral margin incision was then extended to the level of subcutaneous fat with a 15 blade scalpel and excised. The specimen and notches were mapped onto a worksheet for future reference. Hemostasis was obtained with ??monopolar electrodessication. The central tumor was shaved for microstaging. The margin of the specimen was sectioned as planned, processed in Mohs fashion, and sent for permanent section assessment of the margin. Running proline sutures were placed to nasim the margin. The wound was cleansed and covered with vaseline, a non stick bandage and a pressure bandage. Wound care instructions were given verbally and on paper. The patient is to return in 1 week for further surgery pending histopathologic review. Dr. Sotelo performed the entire surgery, and documentation used to initiate this operative report. I entered the information in our [employer] DocFlowsheet with the information provided by Dr. Sotelo on her handwritten, paper format, surgical worksheet, which was then used to initiate the create of this note. Dr. Sotelo then reviewed and edited the note as needed to complete the note. Kathy Ybarra LPN Charles Sotelo MD PROCEDURE/MINOR SURG ICAL ORDERABLES * TYPE + SCREEN PANEL (06/15/2021 10:10 AM CDT) Pathologist [facility] Antibody Screen NEG 11:14 AM CDT [facility] BLOOD BANK LAB ABO Rh O POS 06/15/2021 11:14 AM CDT [facility]OD [facility] Blood Bank BLOOD SPECIMEN / Unknown Lab Venipuncture / Unknown 06/15/2021 10:10 AM CDT 06/15/2021 10:20 AM CDT Paris Epstein DO LAB - BLOOD BANK O RDERABLES [facility]OD [facility] [address] [place] [address], [facility] [phone] * CBC W/O DIFFERENTIAL (06/15/2021 10:10 AM CDT) WBC 7.6 3.5 - 10.5 10? 3 /uL 06/15/2021 10:28 AM CDT [facility] RBC 5.48 4.30 - 5.70 10? 6 /uL 06/15/2021 10:28 AM [facility] Hemoglobin 16.2 12.0 - 17.6 g/dL 06/15/2021 10:28 AM T [facility] Hematocrit 48.4 35.2 - 51.7 % 06/15/2021 10:28 AM T [facility] MCV 88.3 80.7 - 98.3 fL 06/15/2021 10:28 AM T [facility] MCH 29.6 26.7 - 34.0 pg 06/15/2021 10:28 AM [facility] MCHC 33.5 30.8 - 35.9 g/dL 06/15/2021 10:28 AM [facility] Platelet Count 177 150 - 400 10? 3 /uL 06/15/2021 10:28 AM [facility] RDW-SD 42.3 36.0 - 50.0 fL 06/15/2021 10:28 AM [facility] RDW-CV 13.1 11.2 - 14.8 % 06/15/2021 10:28 AM [facility] MPV 10.4 9.4 - 12.9 fL 06/15/2021 10:28 AM [facility] nRBC Absolute 0.00 0 10? 3 /uL 06/15/2021 10:28 AM [facility] nRBC Auto 0.0 0 /100 WBC 06/15/2021 10:28 AM [facility] Blood BLOOD SPECIMEN / Unknown Lab Venipuncture / Unknown 06/15/2021 10:10 AM CDT 06/15/2021 10:20 AM T Paris Epstein DO LAB - HEMATOLOGY O RDERABLES Performing Organization Address City/State/[facility] Co de Phone Number [address] [address], [facility] [phone] * (ABNORMAL) BASIC METABOLIC PANEL (CALCIUM TOTAL) (06/15/2021 10:10 AM CDT) BUN 19 7 - 26 mg/dL 06/15/2021 10:49 AM [facility] Creatinine 1.54(H) 0.71 - 1.16 mg/dL 06/15/2021 10:49 AM [facility] Sodium 141 136 - 145 mmol/L 06/15/2021 10:49 AM [facility] Potassium 4.3 3.5 - 4.5 mmol/L 06/15/2021 10:49 AM [facility] Chloride 106 98 - 107 mmol/L 06/15/2021 10:49 AM [facility] CO2 26 22 - 29 mmol/L 06/15/2021 10:49 AM [facility] Glucose 110 70 - 115 mg/dL 06/15/2021 10:49 AM [facility] Calcium 9.7 8.4 - 10.2 mg/dL 06/15/2021 10:49 AM [facility] Anion Gap 13 8 - 18 06/15/2021 10:49 AM [facility] BUN/Creatinine Ratio 12 7 - 23 06/15/2021 10:49 AM [facility] Osmolality Calculated 295 270 - 300 mOsm/kg 06/15/2021 10:49 AM [facility] eGFR by CKD-EPI 41(L) >=90 mL/min/1.7 3 m2 06/15/2021 10:49 AM [facility] Blood BLOOD SPECIMEN / Unknown Lab Venipuncture / Unknown 06/15/2021 10:10 AM CDT 06/15/2021 10:19 AM CDT Paris Epstein DO LAB - CHEMISTRY OR DERABLES [facility] [address] [place] [address], [facility] [phone] * EKG 12-LEAD (06/15/2021 9:17 AM CDT) Ventricular Rate 83 BPM [facility] MUSE Atrial Rate 83 BPM [facility] MUSE P-R Interval 182 ms [facility] QRS Duration ms 102 ms [facility] MUSE Q-T Interval ms 396 ms [facility] MUSE QTC Calculation (Bezet) 465 ms [facility] MUSE Calculated P Rosser 62 degrees [facility] MUSE Calculated R Rosser -28 degrees [facility] MUSE Calculated T Rosser 90 degrees [facility] MUSE Interpretation EKG NORMAL SINUS RHYTHM POOR R WAVE PROGRESSION ABNORMAL ECG NO PREVIOUS ECGS AVAILABLE Confirmed by fellow Lc Klein ([id number]) on 06/15/2021 3:10:15 PM Confirmed by Jone Summers ([id number]) on 06/17/2021 12:09:27 AM [facility] MUSE 06/15/2021 9:17 AM CDT 06/17/2021 12:09 AM CDT Paris Epstein DO ECG ORDERABLES Performing Organization Address City/[facility]/ZIP Co de Phone Number [facility] MUSE * PATHOLOGY/GENETICS HISTORICAL-ONBASE (03/29/2016) Only the most recent of8 resultswithin the time period is included. 03/29/2016 Narrative [facility] - 04/19/2016 2:18 PM CDT Historical Provider LAB - CHEMISTRY O RDERABLES Performing Organization Address [facility] Co de Phone Number [facility] [address] Care Teams Senior Benefits Analyst Relationship Specialty Start Date End Date Luis Fernando Vo MD [address] [facility] [address] [place] [address] PCP - General Cardiovascular Disease 06/06/21
--- OUTSIDE RECORDS SUMMARY | 2024-11-05 00:09 | XMS_ITS | Continuity of Care Document ---
Author Organization [facility] Address [address] [place] [id number] Care Team Providers Care Form Grader Name Role Phone Baldev Mccray Primary Care Physician [phone] Encounter [facility] Financial Number [id number] Date(s): 01/21/24 - 01/21/[address] [phone] Discharge Disposition: Home or Self Care Attending Physician: Susan Montiel MD Admitting Physician: Susan Montiel MD Referring Physician: Susan Montiel MD Allergies, Adverse Reactions, Alerts No Known Allergies Assessment and Plan Future Appointments Appointment Date:02/03/2024 11:00:00 AM Scheduled Provider:Juan Gu MD Location:[facility] Appointment Type:[facility] New Patient Appointment Date:06/23/2024 10:15:00 AM Scheduled Provider:Susan Montiel MD Location:[facility] Appointment Type:CPA EP Established Patient Appointment Date:07/14/2024 11:15:00 AM Scheduled Provider:Baldev Mccray MD Location:[facility] Appointment Type:[facility] EP Established Patient Appointment Date:01/06/2025 09:45:00 AM Scheduled Provider:Baldev Mccray MD Location:[facility] Appointment Type:CIMArsh CPE Complete Physical Exam Immunizations Given and [...] albuterol 90 mcg/inh inhaler 2 puff(s), Inhalation, [id number], PRN, 1 each, Inhaler, 3, 3, shortness of breath, Slow Breath inhaleslowly and deeply , Route to Pharmacy Electronically, [facility] [address] [facility], [id number], 172.72, cm, 07/31/23 10:20:00 CDT, Height, 86.81, kg, 07/31/23 10:20:00 CDT, Weight Start Date: 11/05/23 Status: Ordered allopurinol 100 mg oral tablet 1 tablet(s), Oral, daily, 30 tablet(s), 0, 0, FOR GOUT PREVENTION., Route to Pharmacy Electronically, [facility] [address] [facility], [id number], 172.72, cm, 07/31/23 10:20:00 CDT, Height, 86.81, kg, 07/31/23 10:20:00 CDT, Weight Start Date: 12/18/23 Status: Ordered aspirin 81 mg oral enteric coated tablet 81 mg, 1 tablet(s), Oral, daily, Tab EC, 0 Start Date: 11/08/17 Status: Ordered Entresto 49 mg-51 mg oral tablet 1 tablet(s), Oral, bid, 180 each, Tablet(s), 0, 0, Route to Pharmacy Electronically, [facility] [address] [facility], [id number], 177, cm, 01/03/24 13:03:00 SUPERVISING LAW ENFORCEMENT ANALYST, Height, 91.2, kg, 01/03/24 13:03:00 SUPERVISING LAW ENFORCEMENT ANALYST, Weight Start Date: 01/13/24 Status: Ordered fexofenadine 180 mg oral tablet 180 mg, 1 tablet(s), Oral, daily, 30 tablet(s), Tablet(s), 0 Start Date: 11/08/17 Status: Ordered Flomax 0.4 mg oral capsule 0.4 mg, 1 capsule(s), Oral, pm after dinner, 90 capsule(s), Capsule(s), 3, 3, Route to Pharmacy Electronically, [facility] [address] [facility], [id number], 172.72, cm, 11/06/2022 1120,Height, 89.09, kg, 11/06/2022 1120, Weight Start Date: 11/09/22 Stop Date: 11/04/23 Status: Ordered Keflex 250 mg oral capsule 250 mg, 1 capsule(s), Oral, qhs, 0 Start Date: 09/26/22 Status: Ordered Lasix 40 mg oral tablet 40 mg, 1 tablet(s), Oral, daily, 90 tablet(s), Tablet(s), 3, 3, Route to Pharmacy Electronically, [facility] [address] [facility], [id number], 178, cm, 09/22/2022 2335, Height, 93.7, k g, 09/26/2022 0507, Weight Start Date: 10/18/22 Stop Date: 10/13/23 Status: Ordered Metoprolol Tartrate 50 mg oral tablet 50 mg, 1 tablet(s), Oral, bid, 180 tablet(s), Tablet(s), 3, 3, Route to Pharmacy Electronically, [facility] [address] [facility], [id number], 177, cm, 01/03/24 13:03:00 SUPERVISING LAW ENFORCEMENT ANALYST, Height, 91.2, kg, 01/03/24 13:03:00 SUPERVISING LAW ENFORCEMENT ANALYST, Weight Start Date: 01/10/24 Stop Date: 01/04/25 Status: Ordered Multivitamin oral tablet 1 tablet(s), Oral, daily, 30 tablet(s), 0 Start Date: 11/12/12 Status: Ordered omeprazole 20 mg oral delayed release capsule 1 capsule(s), Oral, daily, 90 capsule(s), 3, 3, Route to Pharmacy Electronically, [facility] [address] [facility], [id number], 172.72, cm, 07/31/23 10:20:00 CDT, Height, 86.81, kg, 07/31/23 10:20:00 CDT, Weight Start Date: 10/30/23 Status: Ordered Potassium Chloride (Eqv-K-Tab) 10 mEq oral tablet, extended release 10 mEq, 1 tablet(s), Oral, bid, 180 tablet(s), 3, 3, Route to Pharmacy Electronically, [facility] [address], [id number], 172.72, cm, 11/06/2022 1120, Height, 89.09, kg, 11/06/2022 1120, Weight Start Date: 11/09/22 Stop Date: 11/04/23 Status: Ordered prochlorperazine 10 mg oral tablet 10 mg, 1 tablet(s), Oral, daily, PRN, 30 tablet(s), Tablet(s), 1, 1, nausea, Route to Pharmacy Electronically, [facility] [address] [facility], [id number], 177, cm, 01/03/24 13:03:00 SUPERVISING LAW ENFORCEMENT ANALYST, Height, 91.2, kg, 01/03/24 13:03:00 SUPERVISING LAW ENFORCEMENT ANALYST, Weight Start Date: 01/03/24 Stop Date: 03/03/24 Status: Ordered rosuvastatin 20 mg oral tablet 1 tablet(s), Oral, HS, 90 tablet(s), 0, 0, Route to Pharmacy Electronically, [facility],[id number], 177, cm, 01/03/24 13:03:00 SUPERVISING LAW ENFORCEMENT ANALYST, Height, 91.2, kg, 01/03/24 13:03:00 SUPERVISING LAW ENFORCEMENT ANALYST, Weight Start Date: 01/13/24 Status: Ordered Wixela Inhub 250 mcg-50 mcg inhalation powder 1 puff(s), Inhalation, bid, 1 each, Inhaler, 3, 3, Fast Breath inhale quickly and deeply, Route to Pharmacy Electronically, [facility] [address] [facility], [id number], 172.72, cm, 07/31/23 10:20:00 CDT, Height, 86.81, kg, 07/31/23 10:20:00 CDT, Weight Start Date: 11/05/23 Status: Ordered Problem List Condition Confirmation Course Effective Dates Status H ealth Status Informant Allergic rhinitis Confirmed Active Asthma-COPD overlap syndrome Confirmed Active ASHD (arteriosclerotic heart disease) I25.10 Confirmed Active BPH (benign prostatic hyperplasia) Confirmed Active Hearing loss of both ears Confirmed Active 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 HISTORY: History of lung cancer TECHNIQUE: CT without contrast performed and thin section axial images acquired. The radiation exposure as measured by the dose length product (DLP) is 331 mGy-cm. COMPARISON: 01/30/2023 FINDINGS: HEART: Median sternotomy wires. Heart size unchanged. MEDIASTINUM: No mediastinal, hilar, or axillary lymphadenopathy or mass. LUNGS: Triangular nodular opacity and/or infiltrate within the right upper lobe along the minor fissure stable and unchanged. Stable 3 mm right upper lobe lung nodule image #45. No new nodules or infiltrates. No pleural effusion or pneumothorax. CHEST WALL: Hiatal hernia. Old healed rib fractures. UPPER ABDOMEN: Multiple renal cysts, larger within the right kidney with partial rim calcification. IMPRESSION: Stable triangular density within the right upper lobe adjacent to the minor fissure, unchanged. 3 mm right upper lobe lung nodule unchanged. Hiatal hernia. Renal cysts with partial calcification. RR Dictating Physician: Nathan Dick M.D. Releasing Physician: Nathan Dick M.D. Signature Electronically Authorized Authorized Date/Time: 21-JAN-2024 12:02 pm Social History Social History Type Response [...] Event Display: Authorization to Treat Authored Date: [id number] * Event Display: Authorization to Treat Authored Date: [id number] * Tomy Hernandez Health Finance Manager: PERFORM Event Display: ROI_Correspondence Authored Date: [id number] * Event Display: ROI_Correspondence * Event Display: ROI_Correspondence * Event Display: ROI_Correspondence Patient Care team information Care Team Personnel Name: Cande Malloy RECRUITING SCHEDULER Position: AMB RECRUITING SCHEDULER/PA Member Role: Nurse Practitioner Address: Address: [address] [place] [address] [address], [place] [id number] [place] Name: Abena Saldaña RN Lung Screening Coordinator Position: Population Health Coordinator Member Role: Population Health Coordinator Name: Jeremie Mujica M.D. Position: Physician - Cardiology Member Role: Retail General Manager Heart Failure Address: Address: [address] [place] [phone] [place] Name: Mindi Ma Pipe Smoker Machine Operator Position: Population Health Coordinator Blocking Machine Operator Member Role: Population Health Coordinator Name: Garland Haywood MD Member Role: Specialist Physician Name: Veronika Odonnell RN Position: AMB ONC Nurse Navigator Member Role: Nurse Navigator Name: Baldev Mccray MD Position: Physician - Internal Medicine Member Role: Primary Care Physician Address: Address: [address] [facility] [address] [place] [address] [place] Name: Laila Burch RN Outpatient Exhibits Coordinator Position: OP Exhibits Coordinator Day [facility] Director Member Role: Exhibits Coordinator Name: Bronson Vaca RECRUITING SCHEDULER Position: AMB ONC RECRUITING SCHEDULER Member Role: Nurse Practitioner Address: Address: [address] Name: Lucas Damon Frickertron Checker Position: AMB ONC CPM/MA/RN Member Role: Nurse Navigator Care Team Related Persons Name: BRANDY SMALL Address: home [address] [phone]
--- OUTSIDE RECORDS SUMMARY | 2024-11-05 00:09 | XMS_ITS | Continuity of Care Document ---
Author Organization [facility] Address [address] [place] [phone] Care Team Providers Care Equal Employment Opportunity Officer Name Role Phone Mike Lebron Primary Care Physician Encounter [facility] Financial Number [id number] Date(s): 07/31/23 - 07/31/[address] [id number] Discharge Disposition: Home or Self Care Attending Physician: Mike Lebron M.D. Admitting Physician: Mike Lebron M.D. Referring Physician: Mike Lebron M.D. Allergies, Adverse Reactions, Alerts No Known Allergies Assessment and Plan Future Appointments Appointment Date:10/22/2023 09:30:00 AM Scheduled Provider:Mike Lebron M.D. Location:[facility] Appointment Type:[facility] Established Patient Extended Appointment Date:01/29/2024 10:00:00 AM Scheduled Provider:Susan Montiel MD Location:[facility] [...] A DAY, 90, Route to Pharmacy Electronically, [facility] [address], [id number], Instructions Replace Required Details, 172.72, cm, 01/30/23 13:36:00 CDT, Height, 86.4, kg, 02/19/23 13:40:00 CDT, Weight Start Date: 06/24/23 Status: Ordered albuterol 90 mcg/inh inhaler 2 puff(s), Inhalation, [id number], PRN, 1 each, Inhaler, 3, 3, shortness of breath, Slow Breath inhaleslowly and deeply , Route to Pharmacy Electronically, [facility] [address] [facility], [id number], 175, cm, 07/25/2022 1145, Height, 97.5, kg, 07/25/2022 1145, Weight Start Date: 07/25/22 Status: Ordered allopurinol 100 mg oral tablet 1 tablet(s), Oral, daily, 90 tablet(s), 3, FOR GOUT PREVENTION., Route to Pharmacy Electronically, [facility] [address], [id number], 175, cm, 07/25/2022 1145, Height, 97.5, kg, 07/25/2022 1145, Weight Start Date: 08/06/22 Status: Ordered Arexvy preservative-free intramuscular injection 60 mcg, 0.5 mL, IntraMuscular, Once, 0.5 mL, 0, 0, Pharmacy to administer, Route to Pharmacy Electronically, [facility] [address] [facility], [id number], 172.72, cm, 07/31/23 10:20:00CDT, Height, 86.81, kg, 07/31/23 10:20:00 CDT, Weight Start Date: 07/31/23 Status: Ordered aspirin 81 mg oral enteric coated tablet 81 mg, 1 tablet(s), Oral, daily, Tab EC, 0 Start Date: 11/08/17 Status: Ordered Entresto 49 mg-51 mg oral tablet 1 tablet(s), Oral, bid, 180 tablet(s), Tablet(s), 3, 3, [facility]ically[facility], [id number], 178, cm, 09/22/2022 2335, Height, 93.7, kg, 09/26/2022 0507, Weight Start Date: 10/18/22 Stop Date: 10/13/23 Status: Ordered fexofenadine 180 mg oral tablet 180 mg, 1 tablet(s), Oral, daily, 30 tablet(s), Tablet(s), 0 Start Date: 11/08/17 Status: Ordered Flomax 0.4 mg oral capsule 0.4 mg, 1 capsule(s), Oral, pm after dinner, 90 capsule(s), Capsule(s), 3, 3, Route to Pharmacy Electronically, [facility], [id number], 172.72, cm, 11/06/2022 1120,Height, 89.09, kg, 11/06/2022 1120, Weight Start Date: 11/09/22 Stop Date: 11/04/23 Status: Ordered Keflex 250 mg oral capsule 250 mg, 1 capsule(s), Oral, qhs, 0 Start Date: 09/26/22 Status: Ordered Lasix 40 mg oral tablet 40 mg, 1 tablet(s), Oral, daily, 90 tablet(s), Tablet(s), 3, 3, Route to Pharmacy Electronically, [facility], [id number], 178, cm, 09/22/2022 2335, Height, 93.7, k g, 09/26/2022 0507, Weight Start Date: 10/18/22 Stop Date: 10/13/23 Status: Ordered Metoprolol Tartrate 50 mg oral tablet 50 mg, 1 tablet(s), Oral, bid, 180 tablet(s), Tablet(s), 3, 3, Route to Pharmacy Electronically, [facility], [id number], 172.72, cm, 01/30/2023 1336, Height, 86.4,kg, 02/19/2023 1340, Weight Start Date: 03/14/23 Stop Date: 03/08/24 Status: Ordered Multivitamin oral tablet 1 tablet(s), Oral, daily, 30 tablet(s), 0 Start Date: 11/12/12 Status: Ordered omeprazole 20 mg oral delayed release capsule 1 capsule(s), Oral, daily, 90 capsule(s), 3, Route to Pharmacy Electronically, [facility] [address], [id number], 178, cm, 09/22/2022 2335, Height, 93.7, kg, 09/26/2022 0507, Weight Start Date: 10/01/22 Status: Ordered Potassium Chloride (Eqv-K-Tab) 10 mEq oral tablet, extended release 10 mEq, 1 tablet(s), Oral, bid, 180 tablet(s), 3, 3, Route to Pharmacy Electronically, [facility] [address] [facility], [id number], 172.72, cm, 11/06/2022 1120, Height, 89.09, kg, 11/06/2022 1120, Weight Start Date: 11/09/22 Stop Date: 11/04/23 Status: Ordered predniSONE 10 mg oral tablet Taper from 40 mg q3day by 10 mg till off, Oral, daily, 30 tablet(s), 0, 0, Route to Pharmacy Electronically, [facility] [address] [facility], [id number], 172.72, cm, 01/30/23 13:36:00CDT, Height, 86.4, kg, 02/19/23 13:40:00 CDT, Weight Start Date: 07/02/23 Stop Date: 07/14/23 Status: Ordered prochlorperazine 10 mg oral tablet 10 mg, 1 tablet(s), Oral, [id number], PRN, 30 each, Tablet(s), 1, 1, nausea, Route to Pharmacy Electronically, [facility] [address] [facility], [id number], 172.72, cm, 11/06/2022 1120, Height, 89.09, kg, 11/06/2022 1120, Weight Start Date: 11/06/22 Stop Date: 01/05/23 Status: Ordered rosuvastatin 20 mg oral tablet 1 tablet(s), Oral, HS, 90 tablet(s), 3, Route to Pharmacy Electronically, [facility] [address], [id number], 172.72, cm, 01/30/23 13:36:00 CDT, Height, 86.4, [...] disease) J44.9 Confirmed Active 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 HTN (hypertension) I10 Confirmed [...] 04/2010 C ompleted Prostate implantation Com pleted [id number] 2left Social History Social History Type Response [...] Event Display: Authorization to Treat Authored Date: [id number] * Event Display: Authorization to Treat Authored Date: [id number] * Tomy Hernandez Health Flooring Machine Feeder: PERFORM Event Display: ROI_Correspondence Authored Date: [id number] * Event Display: ROI_Correspondence * Event Display: ROI_Correspondence * Event Display: ROI_Correspondence US Heart * Event Display: Echocardiogram Complete Study * Event Display: Echocardiogram Complete Study Authored Date: [id number] [facility] [address] [place] [address]. [place] [address] Transthoracic Echocardiogram Patient Name: BAM SMALL D : 1935 Study Date: 07/31/2023 11:34:35 AM Gender: M Financial Sales Associate: AGLocation: [facility]- Ref.Provider: MIKE LEBRON Height(Cm): 172 BSA: 2.03 Weight(Kg): 86 BP: 124/62Quality: Good Order Provider: MIKE LEBRON PROCEDURES: Echocardiographic Report: Transthoracic echocardiogram with complete 2D, M-Mode, color and Doppler examination. INDICATIONS: Cardiomyopathy I42.8. Measurements: 2D/M Mode Doppler Measurement Value Normal Range Measurement Value Normal Range LVIDd 2D 5.2 [ 3.9 - 5.7 ] cm LVOT Peak [place] 81.9 [ 80.0 - 150.0 ] cm/s LVIDs 2D 4.0 [ 2.0 - 3.8 ] cm LVOT VTI 17.7 [ 20.0 - 30.0 ] cm IVSd Mid 2D 0.8 [ 0.6 - 1.0 ] cm LVOT Diam 2D 2.1 [ 1.4 - 2.6 ] cm LVPWd 2D 0.8 [ 0.6 - 1.0 ] cm LVOT SVI 31.63 [ 35.00 - 70.00 ] mL/m2 LV Mass 145 g AV Peak Milton 116.2 cm/s LV Mass Index 72 [ 49 - 115 ] g/m2 AV Peak PG 5.4 mmHg RWT 0.31 AV Mean PG 2.8 mmHg EDV 2D 130 [ 60 - 145 ] cm3 AV VTI 23.9 cm LV Diastolic Volume Index 64 [ 34 - 74 ] Aortic Valve Area (VTI) 2.57 cm2 ESV 2D 70 [ 20 - 60 ] cm3 AV DV Index (Velocity) 0.70 [ >= 0.50 ] EF Mod BP 46 [ 50 - 74 ] % AV DVTI Index (VTI) 0.74 [ >= 0.50 ] FS 2D 23 [ 25 - 47 ] % MV E Peak [place] 46.1 [ 70.0 - 120.0 ] cm/s LA Volume Index 2D 29 [ 20 - 34 ] cc/m2 MV A Peak [place] 76.5 cm/s RVDd 2D 4.8 cm MV E/A 0.6 TAPSE 1.4 [ 1.6 - 2.3 ] cm MV Decel Time 274.9 [ 180.0 - 240.0 ] msec RA Area 2D 20 [ 8 - 20 ] cm2 PV Peak [place] 96.1 [ 80.0 - 150.0 ] cm/s IVC Diameter 2D 1.2 [ 1.1 - 2.1 ] cm PV Peak PG 3.7 mmHg LVOT Diam 2D 2.1 [ 1.4 - 2.6 ] cm TR Peak Milton 220.1 [ 150.0 - 270.0 ] cm/s Sinus V 2D 3.5 cm TR Peak PG 19.6 [ 20.0 - 32.0 ] mmHg Asc AoR 2D 3.3 [ 2.0 - 3.7 ] cm RVSP 25.0 mmHg Tricuspid S` 7.0 [ 10.0 - 25.0 ] cm/s Lateral E` 9 cm/s Medial E` 5 cm/s Average E` 7.00 cm/s E/E` 6.59 [ <= 14.00 ] Measurement Value Normal Range Measurement Value Normal Range 2D/M Mode Doppler - FINDINGS: Left Ventricle: The left ventricular ejection fraction is measured by Bailey's biplane method at 46 %. Impaired LV relaxation with normal LA pressure. Global Longitudinal Strain (GLS) was found to be -14.2%. Resting Segmental Wall Motion Analysis: Total wall motion score is 2.00. There is global left ventricular hypkonesis. Right Ventricle: Moderately dilated right ventricle. Mild right ventricular hypokinesis. Left Atrium: The left atrium is normal in size. Right Atrium: Mildly dilated right atrium. Atrial Septum: Normal atrial septum. No shunt by color Doppler. Mitral Valve: Normal appearance and function of the mitral valve with trace physiologic regurgitation. Aortic Valve: Trileaflet aortic valve. No hemodynamically significant aortic stenosis by Doppler. No aortic regurgitation. Tricuspid Valve: Normal appearance of the tricuspid valve. There is mild tricuspid regurgitation. The estimated Peak PA Systolic Pressure is 25 mmHg. Pulmonic Valve: The pulmonic valve is not well visualized. No pulmonic stenosis. There is mild pulmonic regurgitation. Pericardium: Appearance: There is an anterior echo free space consistent with epicardial fat pad. Aorta: Normal aortic root. Normal ascending aorta size. IVC: Normal inferior vena cava appearance and respiratory collapse. Rhythm: The rhythm during the study was sinus bradycardia. The rhythm during the study was atrial fibrillation. Prior Comparison: Compared with prior study of 02/11/2023. CONCLUSIONS: 1. The left ventricular ejection fraction is [...] of 02/11/2023, LV systolic function has increased. Electronically Signed By: Minesh Aponte MD 2023-07-31 14:17:47 CDT CC: CC: * Event Display: Echocardiogram Report Patient Care team information Care Team Personnel Name: Abena Saldaña RN Lung Screening Coordinator Position: Population Health Coordinator Member Role: Population Health Coordinator Name: Jeremie Mujica M.D. Position: Physician - Cardiology Member Role: Facial Operator Heart Failure Address: Address: [address] [place] [phone] Name: Mindi Ma Marketing Strategy Lead Position: Population Health Coordinator Mutual Funds Agent Member Role: Population Health Coordinator Name: Garland Haywood MD Position: Physician - Electrophysiology Member Role: Specialist Physician Address: Address: [address] Name: Veronika Odonnell RN Position: AMB ONC Nurse Navigator Member Role: Nurse Navigator Name: Mike Lebron M.D. Position: Physician - Cardiology Member Role: Primary Care Physician Address: Address: [address] [facility] [address] [place] [address]- Name: Laila Burch RN Outpatient Director Of Sports Performance Position: OP Director Of Sports Performance Chemical Engineering Technologist Member Role: Director Of Sports Performance Name: Bronson Vaca PLASTER APPLICATOR Position: AMB ONC PLASTER APPLICATOR Member Role: Nurse Practitioner Address: Address: [address] Name: Lucas Damon Satellite Manager Position: AMB ONC CPM/MA/RN Member Role: Nurse Navigator Name: Mike Lebron M.D. Position: Physician - Cardiology Med Service: Aircraft Fuselage Framer Equal Employment Opportunity Officer Role: Referring Physician Address: Address: [address] [facility] [address] [place] [address]- Care Team Related Persons Name: BRANDY SMALL Address: home [address] [facility] [address] [address] [phone]
--- OUTSIDE RECORDS SUMMARY | 2024-11-05 00:09 | XMS_ITS | Encounter Summary ---
Author Organization [facility] Address [address] [place] [address] Care Team Providers Care Laborer Laboratory Name Role Phone Luis Fernando Vo MD Primary Care Provider [phone]- [phone] Reason for Visit * Reason Comments Nose Problem Encounter Details Date Type Department Care Team (Late st Contact Info) Description 07/18/2021 11:00 AM CDT Office Visit [facility] Otolaryngology [address] [place] [address], [place] [id number] Cresencio Sotelo MD [address] [place] [address] DE[place] [address] Melanocytic neoplasm of skin (Primary Dx) Social [...] Sign Reading Time Taken Comments Blood Pressure 186/97 07/18/2021 11:03 AM CDT Pulse 78 07/18/2021 11:03 AM CDT Temperature - - Respiratory Rate - - Oxygen Saturation - - Inhaled Oxygen Concentration - - Weight 91.2 kg (201 lb) 07/18/2021 11:03 AM CDT Height 177.8 cm (5' 10 ) 07/18/2021 11:03 AM CDT Body Mass Index 28.84 07/18/2021 11:03 AM CDT documented in this encounter Functional [...] Progress Notes * Cresencio Sotelo MD - 07/18/2021 11:17 AM CDT History of Present Illness: 85 year old who presents for postoperative visit. The patient underwent dorsal nasal flap with fullthickness skin graft for columella on 07/05/21 Today the patient reports no major complaints and is healing well. His has been doing local wound care. He is here for bolster removal. Review of Systems: ROS x 14 was [...] puff by mouth 2 times daily ??? allopurinol (ZYLOPRIM) 100 MG tablet Take [...] (OCEAN; BABY AYR) 0.65 % nasal spray [place] 2 (two) sprays into each nostril 4 [...] clean, dry, intact, no drainage. Xeroform bolster removed. Skin graft with 50% take, no signs of infection, no drainage. Assessment and Plan: The patient is a 85 year old male who presents today for a post operative visit. The patient is s/p dorsal nasal flap with full thickness skin graft for columella on 07/05/21. We discussed that the skin graft will slowly slough off and this small portion of the wound will heal secondarily. We discussed wound care. All of the patient's questions were answered to the best of my ability. Follow up in 3 weeks for wound check. documented in this encounter Plan of Treatment Not on file documented as of this encounter Visit Diagnoses Diagnosis Melanocytic neoplasm of skin- Primary documented in this encounter Care Teams Laborer Laboratory Relationship Specialty Start Date End Date Luis Fernando Vo MD [address] [place] [id number] PCP - General Cardiovascular Disease 06/06/21 documented as of this encounter
--- OUTSIDE RECORDS SUMMARY | 2024-11-05 00:10 | XMS_ITS | Encounter Summary ---
Author Organization [facility] Address [address] [place] [address] Care Team Providers Care Automation Engineering Technician Name Role Phone Luis Fernando Vo MD Primary Care Provider +1- [phone] Encounter Details Date Type Department Care Team (Late st Contact Info) Description 04/29/2019 Lab Requisition [facility] Care DermPath Lab [address] [place] [phone] Chiki Nicholson MD [address] [place] [address] Social History Tobacco Use Types Packs/Day Years Used Date Smoking Tobacco: Former Smokeless Tobacco: Never Alcohol Use Standard Drinks/Week Comments Yes 0 (1 standard drink = 0.6 oz pur e alcohol) Sex and Gender Information Value Date Recorded Sex Assigned at Not on file Gender Identity Not on file Sexual Orientation Not on file documented as of this encounter Plan of Treatment Not on file documented as of this encounter Procedures Procedure Name Priority Date/Time Associated Diagnosis Comments DERMATOPATHOLOGY Routine 04/28/2019 12:0 0 AM CDT documented in this encounter Results * DERMATOPATHOLOGY (04/28/2019 12:00 AM CDT) Case Report Dermatopathology Report ? Case: [id number] ? Authorizing Provider: ??Chiki Nicholson MD ?Collected: ? 04/28/2019 12:00 AM ? Pathologist: ? Angelika Peters MD ? Received: ?04/29/2019 12:36 PM ? Specimens: ?? A) - Skin, vertex scalp right of midline ? B) - Skin, left of midline vertex scalp ? 9 5:45 PM CDT DERMATOPATHOLOGY LABORATORY Final Diagnosis Specimen A. SKIN, vertex scalp right of midline: HYPERPLASTIC (HYPERTROPHIC) ACTINIC KERATOSIS (L57.0) Specimen B. SKIN, left of midline vertex scalp: HYPERPLASTIC (HYPERTROPHIC) ACTINIC KERATOSIS (L57.0) 9 5:45 PM CDT DERMATOPATHOLOGY LABORATORY Clinical History A-B: R/O SCC 9 5:45 PM CDT DERMATOPATHOLOGY LABORATORY Gross Description Specimen A: Received is one formalin filled container labeled with the patient's name and designated vertex scalp right of midline. The specimen consists of a shave biopsy( 3 pieces) measuring 8x6x2,4x3x1,and 2x2x1 mm. Jar 0. Specimen B: Received is one formalin filled container labeled with the patient's name and designated left of midline vertex scalp. The specimen consists of a shave biopsy measuring 7x7x2 mm. Jar 0. 9 5:45 PM CDT DERMATOPATHOLOGY LABORATORY Microscopic Description Specimen A. SKIN, vertex scalp right of midline: There is hyperkeratosis alternating with parakeratosis. There is epidermal hyperplasia with disorderly maturation of keratinocytes with nuclear pleomorphism confined to the lower half of the epidermis. Specimen B. SKIN, left of midline vertex scalp: There is hyperkeratosis alternating with parakeratosis. There is epidermal hyperplasia with disorderly maturation of keratinocytes with nuclear pleomorphism confined to the lower half of the epidermis. 9 5:45 PM CDT DERMATOPATHOLOGY LABORATORY Disclaimer An external and internal positive and negative controls are appropriate for the histochemical, immunohistochemical and immunofluorescence stain(s) in this case (if any), except where stated explicitly. The performance characteristics of the stain(s) cited in this report were developed and its performance characteristic determined by the Dermatopathology Laboratory at [facility], directed by Dr. Azalea Peters. These tests need not be, and therefore are not, approved by the [place] Food and Drug Administration. The tests are used for clinical purposes. Billing Codes Specimen Charges Stain Charges 78080 30266 1 1 9 5:45 PM CDT DERMATOPATHOLOGY LABORATORY Embedded Images 9 5:45 PM CDT DERMATOPATHOLOGY LABORATORY Pathology/Cytology TISSUE SPECIMEN FROM SKIN / Unknown 04/28/2019 04/29/2019 12:36 PM CDT Miscellaneous samples (specimen) TISSUE SPECIMEN FROM SKIN / Unknown 04/28/2019 04/29/2019 12:36 PM CDT Chiki Nicholson MD LAB - PATHOLOGY/CYTO LOGY ORDERABLES DERMATOPATHOLOGY LABORATORY [facility] - Department of Dermatology [address] [place] [address], [facility] [phone] documented in this encounter Visit Diagnoses Not on filedocumented in this encounter Care Teams Automation Engineering Technician Relationship Specialty Start Date End Date Luis Fernando Vo MD [address] [facility] [address] [place] [address] PCP - General Cardiovascular Disease 06/06/21 documented as of this encounter
--- OUTSIDE RECORDS SUMMARY | 2024-11-05 00:10 | XMS_ITS | Encounter Summary ---
Author Organization [facility] Address [address] [place] [address] Care Team Providers Care Account General Manager Name Role Phone Luis Fernando Vo MD Primary Care Provider +1- [phone] Encounter Details Date Type Department Care Team (Late st Contact Info) Description 05/02/2021 Lab Requisition [facility] Care DermPath Lab [address] [facility] [place] [phone] Chiki Nicholson MD [address] [place] [address] Social History Tobacco Use Types [...] Priority Date/Time Associated Diagnosis Comments DERMATOPATHOLOGY Routine 05/01/2021 12:0 0 AM CDT documented in this encounter Results * DERMATOPATHOLOGY (05/01/2021 12:00 AM CDT) Case Report Dermatopathology Report ? Case: [id number] ? Authorizing Provider: ??Cihki Nicholson MD ?Collected: ? 05/01/2021 12:00 AM ? Ordering Location: ? [facility] DermPath Lab ?Received: ?05/02/2021 01:36 PM ? Pathologist: ? Mindi Blackman MD ? Specimen: ?Skin, nasal tip ? 11:34 AM CDT DERMATOPATHOLOGY LABORATORY Final Diagnosis Specimen A. 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 11:34 AM CDT DERMATOPATHOLOGY LABORATORY Gross Description Specimen A: Received is one formalin filled container labeled with the patient's name and designated nasal tip. The specimen consists of a shave biopsy (2 pieces) measuring 5i3j0nb & 4i6a5hb. Jar 0. 11:34 AM CDT DERMATOPATHOLOGY LABORATORY Microscopic Description Specimen A. SKIN, nasal tip: Sections show a lentiginous melanocytic proliferation. Scattered melanocytes show evidence of upward migration and there are focal areas of confluence. The melanocytes are highlighted by MART-1/Melan-A. The lesion extends to the margins of the specimen. COMMENT: Based on the histological findings an early melanoma in-situ can not be ruled out. Therefore, a complete but conservative re-excision to assure complete removal of this lesion is recommended. This case was also reviewed by Dr. Virginie Allen, who agrees. 11:34 AM CDT DERMATOPATHOLOGY LABORATORY Disclaimer An external and internal positive and negative controls are appropriate for the histochemical, immunohistochemical and immunofluorescence stain(s) in this case (if any), except where stated explicitly. The performance characteristics of the stain(s) cited in this report were developed and its performance characteristic determined by the Dermatopathology Laboratory at [facility], directed by Dr. Azalea Peters. These tests need not be, and therefore are not, approved by the [place] Food and Drug Administration. The tests are used for clinical purposes. Billing Codes Specimen Charges Stain Charges 50045 1 27676 1 1 11:34 AM CDT DERMATOPATHOLOGY LABORATORY Embedded Images 11:34 AM CDT DERMATOPATHOLOGY LABORATORY Pathology/Cytolog y TISSUE SPECIMEN FROM SKIN / Unknown 05/01/2021 05/02/2021 1:36 PM CDT Chiki Nicholson MD LAB - PATHOLOGY/CYTO LOGY ORDERABLES DERMATOPATHOLOGY LABORATORY [facility] - Department of Dermatology Specialized Medicine [address] [place] [address], [address] [phone] documented in this encounter Visit Diagnoses Not on filedocumented in this encounter Care Teams Account General Manager Relationship Specialty Start Date End Date Luis eFrnando Vo MD [address] [place] [address] PCP - General Cardiovascular Disease 06/06/21 documented as of this encounter
--- OUTSIDE RECORDS SUMMARY | 2024-11-05 00:10 | XMS_ITS | Encounter Summary ---
Author Organization [facility] Health Address [address] [place] [address] Care Team Providers Care Pear Picker Name Role Phone Luis Fernando Vo MD Primary Care Provider [phone]- [phone] Reason for Visit * Reason Comments Lesion Removal LMP nasal tip Encounter Details Date Type Department Care Team (Late st Contact Info) Description 06/20/2021 1:00 PM CDT Procedure visit [facility] [address] [facility] [place] [phone] Charles Sotelo MD [address] [place] [address] Neoplasm of uncertain behavior of skin Social History Tobacco Use Types Packs/Day Years [...] Sign Reading Time Taken Comments Blood Pressure 140/82 06/20/2021 1:31 PM CDT Pulse 76 06/20/2021 1:31 PM CDT Temperature - - Respiratory Rate - - Oxygen Saturation - - Inhaled Oxygen Concentration - - Weight 90.7 kg (200 lb) 06/20/2021 1:31 PM CDT Height 177.8 cm (5' 10 ) 06/20/2021 1:31 PM CDT Body Mass Index 28.7 06/20/2021 1:31 PM CDT documented in this encounter Patient Instructions * Patient Instructions* Kathy Ybarra, MIKEL - 06/20/2021 2:37 PM CDT It was a pleasure to see you today in clinic.We will call you with your pathology results Stitches:to be removed pending pathology results Follow up: * If you have a problem or concern post-operatively, please call ahead to schedule an appointment. We may not be able to accommodate a walk-in appointment * Scars may take 12 months or longer to mature, although a great deal of improvement occurs in the first 3 months. If you have concerns about your scar after 3 months, please call our office to schedule a follow up appointment. There are options available to help improve the appearance. Please continue wound care below twice a day for one week WOUND CARE INSTRUCTIONS 1. Leave your pressure bandage on for 24 hours. You will not need to perform any wound care until this bandage is removed. Do NOT get bandage wet. 2. When you initially begin wound care, you may let the water hit the pressure bandage to loosen itfrom your skin. The bandage should be removed before bathing/showering. 3. Wash your hands thoroughly before starting wound care. Do not use the same cloth/rag/sponge you would use to wash the remainder of your body as this may introduce bacteria from other areas of yourbody and possibly cause infection at the surgical site. 4. You will clean the surgery site twice daily with a mild liquid soap (i.e. Dove, Cetaphil, Baby shampoo). Do not use anything antibacterial, as this will dry the surgical site. 5. Dry the area with a fresh Q-tip or clean gauze. 6. Apply a generous amount of Vaseline or Aquaphor to the wound/sutures. Do not use Neosporin, or any antibacterial ointment as this is likely to cause an allergic reaction to the site. If you are not sure of the sanitary condition of any Vaseline/Aquaphor you may have at home, please purchase a new jar or tube. DO NOT DOUBLE-DIP Q-tips into the ointment and DO NOT USE YOUR FINGERS. This is essential in helping to prevent cross contamination and infection. 7. Cut a non-stick bandage pad to fit the area and then use bandaging tape to hold in place. Paper tape is a good option for very sensitive skin types. 8. You will be using mild soap, clean tap water, Vaseline/Aquaphor, and a bandage twice a day for 1week 9. After surgery, you may restart all your medications that were stopped (if applicable). If your surgical site is on your forehead, or close to the eye area, you will want to use ice packs. Please apply ice packs every hour for 20 minutes while awake. Sleep elevated for the next two nights as this will help decrease the amount of bruising and swelling you will notice the evening after surgery and into the next morning. For surgical areas on your arms/legs, try to keep the area elevated above the level of your heart as much as possible. This will help to decrease swelling. Frequent gentle rubbing of your fingers or toes in that area will prevent numbness and stiffness. If located on your arm/hand, we ask that you do not lift anything heavier than a gallon of milk fortwo weeks. Keep the arm/hand elevated to help decrease swelling in the wrist and fingers. Do not wear jewelry as impending swelling could cause discomfort. For surgical areas on your head/neck, do not bend over or stoop down. Do not drop your head, as this increases blood to the surgical area and can induce bleeding. Refrain from use of hair care products, hair coloring, or permanents until sutures have been removed and/or the surgical site has completely healed. BATHING: Begin bathing/showering once pressure bandage comes off. Do not let direct water pressure hit the surgery site. It is okay if it gets wet, just let the water roll over. PAIN: Tylenol only for the first 24 hours. Do not take any aspirin, Ibuprofen, Motrin or Aleve as this may increase your risk for bleeding for the first 24 hours. Significant pain/discomfort is unusual and should be reported to our office. SIGNS OF POSSIBLE INFECTION: Significant redness surrounding the surgery site that is warm to the touch, persistent or worsening pain, fever or flu-like symptoms, increased swelling to the area, thick yellow discharge, and/or foul odor. Please call our office as soon as possible if you experience any these symptoms as you may have an infection. BLEEDING: A mild amount of blood on the bandage is expected. Soaking through the bandage is not normal. If this occurs, remove the soiled bandage and apply uninterrupted pressure for 20 minutes by the clock. If this does not stop the bleeding, hold pressure for another 20 minutes with an ice pack. If bleeding stops, apply a bandage per wound care instructions. IF THE BLEEDING PERSISTS, PLEASE CALL OUR OFFICE. Normal office hours: [phone] or [phone] After hours and holidays Cardiac Cath Technologist pony roll finisher: [phone] If you have concerns about how your wound is healing and would like to send us a photo, please email us at [email or web address]. Please include your name and date of in the email. documented in this encounter Progress Notes * Charles Sotelo MD - 06/23/2021 9:18 AM CDT Hi. Can you let Mr. Mckinney know we need to go back and take more at 12-3 0'clock margin? The rest was clear. Please ask if he can come Saturday at 1 PM for SMO2. Thank you, EC documented in this encounter Procedure Notes * Kathy Ybarra LPN - 06/20/2021 3:26 PM CDTAssociated Order(s): PROC EXCISION SKIN FACE FACIAL BENIGN Pre-Procedure Diagnose(s): Neoplasm of uncertain behavior of skin Images from the original note were not included. Date of Service: 06/20/2021 Surgery: Slow Mohs staged excision Stage #: 1 Tumor Type: Lentiginous melanocytic proliferation Location: nasal tip Derm-Path Pre-Op Size: 2.0x2.0 cm Post-Op Size: 3.0x3.0 cm Surgical margins: 0.5cm Level of Defect: adipose Repair Type: path pending Primary Surgeon: Charles Sotelo MD Light Rail Operator: Tate INDICATIONS: The risks of bleeding, infection, discomfort, incomplete removal, nerve damage, and scar formation were explained to the patient. The possible need for additional stages, additional surgical procedures or treatment may be recommended based on the pathology results. The patient understands that the s urgical site may remain open until the margins [...] bicarbonate. Then the perimeter of the lesion was scored deeply to fat followed by deeply scoringthe peripheral margin and planned sections with notching of the margin for mapping. The notches were then marked as well as the 12 o'clock position on the specimen. The peripheral margin incision wasthen extended to the level of subcutaneous fat with a 15 blade scalpel and excised. The specimen and notches were mapped onto a worksheet for future reference. Hemostasis was obtained with monopolar electrodessication. The central tumor was shaved for microstaging. The margin of the specimen was sectioned as planned,processed in Mohs fashion, and sent for permanent section assessment of the margin. Running prolinesutures were placed to nasim the margin. The wound was cleansed and covered with vaseline, a non stick bandage and a pressure bandage. Woundcare instructions were given verbally and on paper. The patient is to return in 1 week for further surgery pending histopathologic review. Dr. Sotelo performed the entire surgery, and documentation used to initiate this operative report. I entered the information in our [employer] DocFlowsheet with the information provided by Dr. Sotelo on her handwritten, paper format, surgical worksheet, which was then used to initiate the create of this note. Dr. Sotelo then reviewed and edited the note as needed to complete the note. Kathy Ybarra LPN Associated attestation - Charles Sotelo MD - 06/27/2021 8:18 AM CDT I have reviewed the note, edited it as necessary and performed the entire procedure. Cahrles Sotelo MD Continuity Person documented in this encounter Plan of Treatment Not on file documented as of this encounter Procedures Procedure Name Priority Date/Time Associated Diagnosis Comments PROC EXCISION SKIN FACE FACIAL BENIGN Routine 06/20/2021 3:26 PM CDT Neoplasm of uncertain behavior of skin DERMATOPATHOLOGY Routine 06/20/2021 2:42 PM CDT Neoplasm of uncertain behavior of skin documented in this encounter Results * PROC EXCISION SKIN FACE FACIAL BENIGN [...] path pending Primary Surgeon: Charles Sotelo MD Light Rail Operator: Tate INDICATIONS: The risks of bleeding, infection, [...] report. I entered the information in our [employer] DocFlowsheet with the information provided by Dr. Sotelo on her handwritten, paper format, surgical worksheet, which was then used to initiate the create of this note. Dr. Sotelo then reviewed and edited the note as needed to complete the note. Kathy Ybarra LPN Charles Sotelo MD PROCEDURE/MINOR SURG ICAL ORDERABLES * Dermatopathology (Specimen Count = 6) (06/20/2021 2:42 PM CDT) Case Report Dermatopathology Report ? Case: [id number] ? Authorizing Provider: ??Charles Sotelo MD ?Collected: ? 06/20/2021 02:42 PM ? Ordering Location: ? [facility] ?? Received: ?06/20/2021 02:53 PM ? Cutaneous Oncology ? Pathologist: ? Angelika Peters, ? Specimens: ?? A) - Skin, nasal tip 12-3 o'clock ? B) - Skin, nasal tip 3-6 o'clock ? C) - Skin, nasal tip 6-7 o'clock ? D) - Skin, nasal tip 7-9 o'clock ? E) - Skin, nasal tip 9-12 o'clock ? F) - Skin, nasal tip debulk ? 1 3:27 PM CDT DERMATOPATHOLOGY LABORATORY Final Diagnosis Specimen A. 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 SKIN, nasal tip 3-6 o'clock: SOLAR ELASTOSIS (L57.8) (see microscopic description) Specimen C. SKIN, nasal tip 6-7 o'clock: SOLAR ELASTOSIS (L57.8) (see microscopic description) Specimen D. SKIN, nasal tip 7-9 o'clock: SOLAR ELASTOSIS (L57.8) (see microscopic description) Specimen E. SKIN, nasal tip 9-12 o'clock: SOLAR ELASTOSIS (L57.8) (see microscopic description) Specimen F. 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 1 3:27 PM CDT DERMATOPATHOLOGY LABORATORY Gross Description A: 2.5x0.5x0.3cm B: 1.5x0.5x0.2cm C: 0.6x0.3x0.2cm D: 0.7x0.4x0.2cm E: 2.4x0.5x0.3cm F: 0.9x0.7x0.2cm 1 3:27 PM [facility] DERMATOPATHOLOGY LABORATORY Microscopic Description Specimen A. SKIN, nasal tip 12-3 o'clock: Sections show an increased number of melanocytes along the dermal epidermal junction. MART-1/Melan-A immunostain shows only very focal areas of confluence and no evidence of nests or extension below the upper third of the hair follicle epithelium. COMMENT: Melanocytic hyperplasia can be secondary to sun damage or seen above / adjacent to a dermal scar. However, in an area adjacent to a previous melanoma it can represent early melanoma in-situ. Clinical correlation is recommended. This immunohistochemical stain was performed after the hematoxylin and eosin stain was reviewed to further assess margins for treatment. Specimen B. SKIN, nasal tip 3-6 o'clock: The specimen exhibits solar elastosis within the dermis. MART-1/Melan-A staining highlights regular periodicity of melanocytes along the dermoepidermal junction. This immunohistochemical stain was performed after the hematoxylin and eosin stain was reviewed to further assess margins for treatment. Specimen C. SKIN, nasal tip 6-7 o'clock: The specimen exhibits solar elastosis within the dermis. MART-1/Melan-A staining highlights regular periodicity of melanocytes along the dermoepidermal junction. This immunohistochemical stain was performed after the hematoxylin and eosin stain was reviewed to further assess margins for treatment. Specimen D. SKIN, nasal tip 7-9 o'clock: The specimen exhibits solar elastosis within the dermis. MART-1/Melan-A staining highlights regular periodicity of melanocytes along the dermoepidermal junction. This immunohistochemical stain was performed after the hematoxylin and eosin stain was reviewed to further assess margins for treatment. Specimen E. SKIN, nasal tip 9-12 o'clock: The specimen exhibits solar elastosis within the dermis. MART-1/Melan-A staining highlights regular periodicity of melanocytes along the dermoepidermal junction. This immunohistochemical stain was performed after the hematoxylin and eosin stain was reviewed to further assess margins for treatment. Specimen F. SKIN, nasal tip debulk: There is a proliferation of melanocytes distributed in an irregular pattern along the dermal-epidermal junction with single cells predominating. Extension down the follicular epithelium and focal areas of confluence are present. This melanocytic proliferation is highlighted on MART-1/Melan-A. This immunohistochemical stain was performed after the hematoxylin and eosin stain was reviewed to further assess margins for treatment. 3:27 PM CDT DERMATOPATHOLOGY LABORATORY Disclaimer An external and internal positive and negative controls are appropriate for the histochemical, immunohistochemical and immunofluorescence stain(s) in this case (if any), except where stated explicitly. The performance characteristics of the stain(s) cited in this report were developed and its performance characteristic determined by the Dermatopathology Laboratory at [facility], directed by Dr. Azalea Peters. These tests need not be, and therefore are not, approved by the [place] Food and Drug Administration. The tests are used for clinical purposes. Billing Codes Specimen Charges Stain Charges 26448 43037 84713 84331 62007 64581 1 1 1 1 1 1 62693 41936 91586 21466 43215 41625 1 1 1 1 1 1 3:27 PM CDT DERMATOPATHOLOGY LABORATORY Embedded Images 3:27 PM CDT DERMATOPATHOLOGY LABORATORY Pathology/Cytology TISSUE SPECIMEN FROM SKIN / Unknown 06/20/2021 2:42 PM CDT 06/20/2021 2:53 PM CDT Miscellaneous samples (specimen) TISSUE SPECIMEN FROM SKIN / Unknown 06/20/2021 2:42 PM CDT 06/21/2021 10:23 AM CDT Miscellaneous samples (specimen) TISSUE SPECIMEN FROM SKIN / Unknown 06/20/2021 2:42 PM CDT 06/21/2021 10:23 AM CDT Miscellaneous samples (specimen) TISSUE SPECIMEN FROM SKIN / Unknown 06/20/2021 2:42 PM CDT 06/21/2021 10:23 AM CDT Miscellaneous samples (specimen) TISSUE SPECIMEN FROM SKIN / Unknown 06/20/2021 2:42 PM CDT 06/21/2021 10:23 AM CDT Miscellaneous samples (specimen) TISSUE SPECIMEN FROM SKIN / Unknown 06/20/2021 2:42 PM CDT 06/21/2021 10:27 AM CDT Charles Sotelo MD LAB - PATHOLOGY/CYTO LOGY ORDERABLES DERMATOPATHOLOGY LABORATORY [facility] - Department of Dermatology [address] [phone] documented in this encounter Visit Diagnoses Diagnosis Neoplasm of uncertain behavior of skin- Primary documented in this encounter Care Teams Pear Picker Relationship Specialty Start Date End Date Luis Fernando Vo MD [address] [place] [address] [address] [place] [address] PCP - General Cardiovascular Disease 06/06/21 documented as of this encounter
--- OUTSIDE RECORDS SUMMARY | 2024-11-05 00:10 | XMS_ITS | Encounter Summary ---
Author Organization [facility] Address [address] [place] [address] Care Team Providers Care Slide Fasteners Inspector Name Role Phone Luis Fernando Vo MD Primary Care Provider [phone]- [phone] Encounter Details Date Type Department Care Team (Late st Contact Info) Description 01/13/2020 Lab Requisition [facility] Care DermPath Lab [address] [facility] [place] [id number] Chiki Nicholson MD [address] [place] [address] Social History Tobacco Use Types [...] Priority Date/Time Associated Diagnosis Comments DERMATOPATHOLOGY Routine 01/12/2020 12:0 0 AM CDT documented in this encounter Results * DERMATOPATHOLOGY (01/12/2020 12:00 AM CDT) Case Report Dermatopathology Report ? Case: [id number] ? Authorizing Provider: ??Chiki Nicholson MD ?Collected: ? 01/12/2020 12:00 AM ? Ordering Location: ? [facility] DermPath Lab ?Received: ?01/13/2020 01:47 PM ? Pathologist: ? Ileana Sandoval MD ? Specimen: ?Skin, left lateral canthus ? 0 1:40 PM CDT DERMATOPATHOLOGY LABORATORY Final Diagnosis Specimen A. 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 0 1:40 PM CDT DERMATOPATHOLOGY LABORATORY Gross Description Specimen A: Received is one formalin filled container labeled with the patient's name and designated left lateral canthus. The specimen consists of a shave biopsy (2 pieces) measuring [id number] & [id number]. Jar 0. 0 1:40 PM CDT DERMATOPATHOLOGY LABORATORY Microscopic Description Specimen A. SKIN, left lateral canthus: Arising in the epidermis and extending into the dermis there are irregularly shaped aggregates of keratinocytes showing evidence of premature cornification. 0 1:40 PM CDT DERMATOPATHOLOGY LABORATORY Disclaimer An external and internal positive and negative controls are appropriate for the histochemical, immunohistochemical and immunofluorescence stain(s) in this case (if any), except where stated explicitly. The performance characteristics of the stain(s) cited in this report were developed and its performance characteristic determined by the Dermatopathology Laboratory at [facility], directed by Dr. Azalea Peters. These tests need not be, and therefore are not, approved by the [place] Food and Drug Administration. The tests are used for clinical purposes. Billing Codes Specimen Charges Stain Charges 55354 1 0 1:40 PM CDT DERMATOPATHOLOGY LABORATORY Embedded Images 0 1:40 PM CDT DERMATOPATHOLOGY LABORATORY Pathology/Cytolog y TISSUE SPECIMEN FROM SKIN / Unknown 01/12/2020 01/13/2020 1:47 PM CDT Chiki Nicholson MD LAB - PATHOLOGY/CYTO LOGY ORDERABLES DERMATOPATHOLOGY LABORATORY [facility] - Department of Dermatology [facility] [facility] 5th Floor Lab [address] [phone] documented in this encounter Visit Diagnoses Not on filedocumented in this encounter Care Teams Slide Fasteners Inspector Relationship Specialty Start Date End Date Luis Fernando Vo MD [facility] [address] [address] PCP - General Cardiovascular Disease 06/06/21 documented as of this encounter
--- OUTSIDE RECORDS SUMMARY | 2024-11-05 00:10 | XMS_ITS | Encounter Summary ---
Author Organization [facility] Address [address] [address] Care Team Providers Care Behavioral Medical Director Name Role Phone Luis Fernando Vo MD Primary Care Provider [phone]- [phone] Reason for Visit * Reason Comments Nose Problem consult Encounter Details Date Type Department Care Team (Late st Contact Info) Description 06/06/2021 1:45 PM CDT Office Visit [facility] Otolaryngology [address] [place] [address], [place] [id number] Cresencio Sotelo MD [address] [place] [address] DE[place] [address] Melanocytic neoplasm of skin (Primary Dx) Social [...] Sign Reading Time Taken Comments Blood Pressure 142/83 06/06/2021 1:17 PM CDT Pulse 57 06/06/2021 1:17 PM CDT Temperature - - Respiratory Rate - - Oxygen Saturation - - Inhaled Oxygen Concentration - - Weight 93.3 kg (205 lb 9.6 oz) 06/06/2021 1:17 P M CDT Height 175.3 cm (5' 9 ) 06/06/2021 1:17 PM CDT Body Mass Index 30.36 06/06/2021 1:17 PM CDT documented in this encounter Patient Instructions * Patient Instructions* Antonieta Gruber - 06/06/2021 1:19 PM CDT Thank you for visiting [facility] Otolaryngology - Head & Neck Surgery. We [...] an appointment, please call our office at [phone] Saturday through Saturday from 8:30 am to4:30 pm. You can also request a routine appointment through your [employer] account. ??? Prescription Refills Contact your pharmacy [...] call the medical exchangeat and ask the automatic grinding machine operator to page the ENT physician donor center technician. *Caller ID blocking service will need to be turned off for your call to be returned. We also specialize in Hearing Aids, Allergy testing, swallowing disorders, voice problems, cancer diagnosis, and so much more. Visit our website at [email or web address] for information about our practice and an interactive health encyclopedia. Thank you for visiting [facility] Otolaryngology - Head & Neck Surgery. We [...] an appointment, please call our office at [phone] Saturday through Saturday from 8:00 am to4:30 pm. You can also request a routine appointment through your [employer] account. ??? Prescription Refills Contact your pharmacy [...] the medical exchange at and ask the automatic grinding machine operator to page the ENT physician donor center technician. *Caller ID blocking service will need to be turned off for your call to be returned. We also specialize in Hearing Aids, Allergy testing, swallowing disorders, voice problems, cancer diagnosis, and so much more. Visit our website at [email or web address] for information about our practice and an interactive health encyclopedia. Thank you for visiting [facility] Otolaryngology - Head & Neck Surgery. We [...] an appointment, please call our office at [phone] Saturday through Saturday from 8:00 am to4:30 pm. You can also request a routine appointment through your [employer] account. ??? Prescription Refills Contact your pharmacy [...] the medical exchange at and ask the automatic grinding machine operator to page the ENT physician donor center technician. *Caller ID blocking service will need to be turned off for your call to be returned. We also specialize in Hearing Aids, Allergy testing, swallowing disorders, voice problems, cancer diagnosis, and so much more. Visit our website at [email or web address] for information about our practice and an interactive health encyclopedia. documented in this encounter Progress Notes * Emre Bonilla - 06/06/2021 1:30 PM CDT DEPARTMENT OF OTOLARYNGOLOGY-HEAD AND NECK SURGERY Chief Complaint: Chief Complaint Patient presents with ??? 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 Today, patient reports he is doing well. Patient is curious about the reconstruction. Denies fevers, chest pain, increased work of breathing Head and neck surgery: besides listed above, none . Family history of head or neck cancers/diseases: none. Personal or family history of adverse reaction to anesthesia: none. Personal or family history of bleeding/clotting disorders: none. Allergies: none. Tobacco: quit 40 years ago, 1ppd since age 16 yo. EtOH: 1 gin and tonic a day. 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 Patient is here with . Medical History No Known Allergies Past Medical History: Diagnosis Date ??? Acid reflux ??? Asthma ??? Gout ??? High blood pressure ??? High cholesterol ??? Prostate disease Past Surgical History: Procedure Laterality Date ??? Coronary Artery Bypass Graft ??? HX JOINT REPLACEMENT left hip 2000 ??? MO BIOPSY OF SKIN LESION ??? MO REPR ANOMAL CORON ART PA ORIGIN BY GRAFT 5 vessels 02/2015 Current Outpatient Medications Medication ??? ADVAIR DISKUS 250-50 MCG/DOSE inhaler ??? albuterol HFA (PROVENTIL;VENTOLIN;PROAIR) 108 (90 Base) MCG/ACT inhaler ??? allopurinol (ZYLOPRIM) 100 MG tablet ??? aspirin (ASPIRIN) 81 MG chew tablet ??? cephalexin (KEFLEX) 250 MG capsule ??? fesoterodine CR 24hr (TOVIAZ) 4 MG tablet ??? fexofenadine (JENNIFER) 60 MG tablet ??? hydroCHLOROthiazide (HYDRODIURIL) 25 MG tablet ??? HYDROcodone-acetaminophen (NORCO) 5-325 MG tablet ??? omeprazole EC (PRILOSEC OTC) 20 MG tablet ??? simvastatin (ZOCOR) 20 MG tablet ??? tamsulosin (FLOMAX) 0.4 MG capsule No current facility-administered medications for this visit. Social History Tobacco Use ??? Smoking status: Former Smoker ??? Smokeless tobacco: Never Used Vaping Use ??? Vaping Use: Never used Substance Use Topics ??? Alcohol use: Yes ??? Drug use: No Family History Problem Relation Name Age of Onset ??? Cancer Mother breast ??? Hypertension Mother Review of Systems Comprehensive and pertinent review of systems performed (x14): pertinent items noted in medical detail representative EPIC note and/or in HPI. Cedric reports the following:no symptoms Physical Examination BP 142/83 Pulse 57 Ht 5' 9 (1.753 m) Wt 205 lb 9.6 oz (93.3 kg) BMI 30.36 kg/m2 Constitutional: alert, not in distress Head and Face: normocephalic, atraumatic, face sensation and motor intact and symmetric Eyes: normal gaze alignment Ears: External: normal pinnae shape and position EACs: Left: with cerumen Right: with cerumen Tympanic membrane: Left ear: could not see Right ear: could not see Nasal: Nasal tip with dark discoloration, R>L). Septum relatively midline anteriorly. Mucosa normal. No drainage or sinus tenderness. Oral Cavity: Mucosa normal; normal tongue and buccal mucosa Oropharynx: The tonsils are normal. The soft palate and posterior pharyngeal wall appear normal. Neck: Soft, supple without significant adenopathy Cranial Nerve Exam: alert, oriented x 3, no defects noted in general exam. 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 Plan: - Continue to follow up with Dr. Sotelo for nasal tip Mohs surgery. - Discussed Mohs surgery reconstruction options with the patient and his . Risks, benefits, alternatives of the proposed procedure were discussed with patient. All questions and concerns were answered and addressed. Patient would like/agreed to proceed with 1-stage Mohs reconstruction of nasal tip, which may include cartilage and/or skin grafts, after Mohs surgery with Dr. Charles Sotelo. - Follow up in OR after Mohs surgery with Dr. Charles Sotelo. Emre Bonilla MD 06/06/21 Associated attestation - Cresencio Sotelo MD - 06/06/2021 2:08 PM CDT I have seen and examined the patient. Parts of the note were documented by the staff and/or resident physician. I have reviewed all documentation and agree with the note with the following additions/exceptions: We discussed at length the options for facial reconstruction. We discussed the option of letting the wound heal on its own without surgery, but this will leave a poor scar. We discussed using a skin graft to reconstruct the wound. This will require prolonged wound care and a postoperative dressing.The wound may also be closed primarily or with locoregional skin flaps. This would require cutting the surrounding skin, borrowing surrounding tissue, and create additional scars in order to close the wound. We discussed that using a paramedian forehead flap or melolabial flap will require at least2 surgeries, possibly more, to complete healing at the wound site and the donor site. With a forehead flap, there may be alopecia at the donor site and hair growth at the recipient site which would re quire shaving. All options are likely to leave a scar(s) but our goal is to help the wound heal as best as possible, and to do this, it may require additional procedures in the future. Cresencio Sotelo MD Senior Control Systems Engineer Facial Plastic and Reconstructive Surgery Otolaryngology- Head and Neck Surgery * Antonieta Gruber - 06/06/2021 1:19 PM CDT Review of Systems [facility] reports the following:no symptoms documented in this encounter Plan of Treatment Not on file documented as of this encounter Visit Diagnoses Diagnosis Melanocytic neoplasm of skin- Primary documented in this encounter Care Teams Behavioral Medical Director Relationship Specialty Start Date End Date Luis Fernando Vo MD [address] [address] PCP - General Cardiovascular Disease 06/06/21 documented as of this encounter
--- OUTSIDE RECORDS SUMMARY | 2024-11-05 00:10 | XMS_ITS | Encounter Summary ---
Author Organization [facility] Address [address] [place] [address] Care Team Providers Care Supervisor Stage Carpentry Name Role Phone Unavailable Primary Care Provider Unavailabl e Reason for Visit * Reason Comments Skin Lesion LMP nasal tip Encounter Details Date Type Department Care Team (Late st Contact Info) Description 05/18/2021 1:30 PM CDT Cosmetic Visit [facility] [address] [place] [id number] Charles Sotelo MD [address] [place] [address] Melanoma in situ of nose (HCC) Social History Tobacco Use Types Packs/Day Years [...] Sign Reading Time Taken Comments Blood Pressure 143/91 05/18/2021 1:52 PM CDT Pulse 73 05/18/2021 1:52 PM CDT Temperature - - Respiratory Rate - - Oxygen Saturation - - Inhaled Oxygen Concentration - - Weight 90.7 kg (200 lb) 05/18/2021 1:52 PM CDT Height 177.8 cm (5' 10 ) 05/18/2021 1:52 PM CDT Body Mass Index 28.7 05/18/2021 1:52 PM CDT documented in this encounter Patient Instructions * Patient Instructions* Rebecca Lino - 05/18/2021 1:44 PM CDT It was a pleasure to see you today in clinic, Mohs Cutaneous Micrographic Surgery Unit MD Charles Smith MD Pre-Surgical Instruction Sheet 1. Expect to be here majority of the morning. The Mohs surgical procedure can be an extensive surgery requiring multiple stages. Each stage may take 1-2 hours. 2. You may eat breakfast 3. You may bring snacks or beverages with you 4. Take all normal medications the morning of surgery -- unless otherwise indicated by your physician 5. If you have an artificial heart valve, or joint replacement within two years, we will prescribe an antibiotic. Please take one hour prior to surgery. 6. You will need a professional driver to be with you if your surgical site is close to your eyes. You can get swelling/bruising immediately after surgery and will go home with a big bulky bandage that could obstruct your view of driving safely. 7. Wear comfortable clothing -- preferably a button down shirt or a loose fitted shirt (to avoid pulling over pressure bandage off when you get home). If your surgery site is on your lower extremity,try wearing loose fitted pants. If your surgery site is on your upper extremity, try wearing a short-sleeve shirt. 8. Bring reading material or other items to help pass time. (We do have internet access available if you own a laptop, iPad, etc.) 9. Women -- do NOT wear make-up. We will be washing it off anyone needing surgery on the face. 10. Do NOT stop blood thinning medication unless instructed to do so by your surgeon. This will include: Warfarin, Coumadin, Jantoven, Aspirin, Plavix and Pradaxa. 11. Tylenol is recommended for postoperative headaches and pain, and can be taken throughout your surgery and postoperative recovery. 12. After surgery you will leave with a pressure bandage that needs to stay in place for 48 hours. If your surgery is on your trunk, arms, hands, legs, feet, fingernail or a toenail, please wash thearea with Hibiclens, an emgv-[id number] antiseptic soap, the night before and morning of your surgery. If you have any questions, please feel free to contact us at or [phone] during office hours. documented in this encounter Progress Notes * Zurdo Ponce MD - 05/18/2021 2:52 PM CDT Staged Excision ( slow Mohs ) Consult Note Tumor type: atypical lentiginous proliferation Location: nasal tip Referring physician: Dr. Nicholson Recurrent skin cancer: concerning for recurrence of melanoma in-situ Prior Treatment: yes, treated via staged excision in 2016 Preoperative Risk Factors: Current Anticoagulants: no Patient reports use of antibiotic for prior procedure: no Endocarditis / Rheumatic Fever hx: no Vascular graft: no Immunocompromised: no Prosthetic joint: yes Congenital heart defect: no Prosthetic heart valve: no Diabetic: no Transplant: no Stent: yes Pacemaker: no Defibrillator: no Transmissible Diseases: no HIV: no HepC: no : N\A [place] moore: yes Tanning bed use: no Tobacco use: no Patient reports prior problem with local anesthesia: no Exam: Limited skin exam is normal except for a 2.5cm x 2.0cm ill-defined brown patch located on thenasal tip. There is no associated cervical, submandibular, or supraclavicular lymphadenopathy appreciated. Pathologic Findings: Diagnosis: lentiginous melanocytic proliferation Assessment and Plan: Treatment Options: The various treatment options for skin cancer removal were reviewed with the patient in detail. These include staged excision surgery ( slow Mohs ) with its high cure rate, excision, destructive treatment, radiation therapy, and various topical therapies. Given the indications and high cure rate, the patient has agreed to proceed with staged excision. Risks and Benefits: The rationale for Mohs was explained to the patient. The risks and benefits to therapy were discussed in detail. Specifically, the risks of infection, scarring, bleeding, dehiscence, hematoma, prolonged wound healing, incomplete removal, allergy to anesthesia, nerve injury, inability to clear the tumor, and recurrence were addressed. The treatment site was clearly identified and confirmed by the patient. Diagnosis: atypical melanocytic proliferation Plan: Staged excision (slow mohs) surgery Indication for Mohs: Clinical area critical for tissue conservation (Area H: central face, eyelids,eyebrows, nose, lips, chin, ear, periauricular, baptist, genitalia, hands, feet, ankles, nail units and areola), recurrent, large tumor size, aggressive pattern on initial pathology, poorly-defined clinical tumor borders, patient known to have high-risk tumors (more aggressive than suggested by clinical appearance), clinically aggressive nature with rapid growth Proposed closure: Repair with Dr. Cresencio Sotelo after verification of clear histologic margins Indication for antibiotics: no Current Anticoagulants: no Associated attestation - Charles Sotelo MD - 05/30/2021 4:26 PM CDT I have seen and examined the patient with the resident and I agree with the findings and plan of care as documented by the resident. Date of Service: 05/18/2021 Charles Sotelo MD documented in this encounter Plan of Treatment Not on file documented as of this encounter Visit Diagnoses Diagnosis Melanoma in situ of nose (HCC)- Primary Malignant melanoma of skin of other and unspecified parts of face documented in this encounter
--- OUTSIDE RECORDS SUMMARY | 2024-11-05 00:10 | XMS_ITS | Encounter Summary ---
Author Organization [facility] Address [address] [place] [address] Care Team Providers Care Rn Testing Name Role Phone Luis Fernando Vo MD Primary Care Provider +1- [phone] Encounter Details Date Type Department Care Team (Late st Contact Info) Description 02/11/2019 Lab Requisition [facility] Care DermPath Lab [address] [place] [phone] Chiki Nicholson MD [address] [place] [address] Social History Tobacco Use Types [...] Priority Date/Time Associated Diagnosis Comments DERMATOPATHOLOGY Routine 02/10/2019 12:0 0 AM CDT documented in this encounter Results * DERMATOPATHOLOGY (02/10/2019 12:00 AM CDT) Case Report Dermatopathology Report ? Case: [id number] ? Authorizing Provider: ??Chiki Nicholson MD ?Collected: ? 02/10/2019 12:00 AM ? Pathologist: ? Angelika Peters MD ? Received: ?02/11/2019 01:03 PM ? Specimen: ?Skin, left preauric cheek ? 9 4:18 PM T DERMATOPATHOLOGY LABORATORY Final Diagnosis Specimen A. SKIN, left preauric cheek: DERMAL SCAR; PRESENT AT MARGIN RESIDUAL SQUAMOUS CELL CARCINOMA NOT IDENTIFIED (L90.5) ACTINIC KERATOSIS, INCIDENTAL; PRESENT AT MARGIN (L57.0) (see microscopic description) 9 4:18 PM T DERMATOPATHOLOGY LABORATORY Clinical History R/O Bx proven SCC, ancantholytic type. Check margins. 4:18 PM T DERMATOPATHOLOGY LABORATORY Gross Description Specimen A: Received is one formalin filled container labeled with the patient's name and designated left preauric cheek.The specimen consists of an ellipse measuring [id number] and is oriented with the suture/notch at the 12 o'clock position labeled on the requisition as notch at superior pole. The 12 to 6 o'clock margin is inked green. The 6 o'clock to 12 o'clock margin is inked black. The 12 o'clock tip is submitted in cassette 1. The 6 o'clock tip is submitted in cassette 2. The remainder of the ellipse is serially sectioned and submitted in cassettes 3-4. Jar 0. 4:18 PM CDT DERMATOPATHOLOGY LABORATORY Microscopic Description Specimen A. SKIN, left preauric cheek: There are fibroblasts and collagen bundles oriented parallel to the skin surface. There are elongated blood vessels, some of which are oriented perpendicular to the skin surface. No residual squamous cell carcinoma is identified. The scar is present at the 12 o'clock tip of the specimen. Away from the scar there is focal parakeratosis. The lower half of the epidermis shows disorderly maturation of keratinocytes with nuclear pleomorphism. The actinic keratosis is present at the 12 o'clock tip of the specimen. 4:18 PM CDT DERMATOPATHOLOGY LABORATORY Disclaimer An external and internal positive and negative controls are appropriate for the histochemical, immunohistochemical and immunofluorescence stain(s) in this case (if any), except where stated explicitly. The performance characteristics of the stain(s) cited in this report were developed and its performance characteristic determined by the Dermatopathology Laboratory at [facility], directed by Dr. Azalea Peters. These tests need not be, and therefore are not, approved by the [place] Food and Drug Administration. The tests are used for clinical purposes. Billing Codes Specimen Charges Stain Charges 21462 1 4:18 PM CDT DERMATOPATHOLOGY LABORATORY Embedded Images 4:18 PM CDT DERMATOPATHOLOGY LABORATORY Pathology/Cytolog y TISSUE SPECIMEN FROM SKIN / Unknown 02/10/2019 02/11/2019 1:03 PM CDT Chiki Nicholson MD LAB - PATHOLOGY/CYTO LOGY ORDERABLES DERMATOPATHOLOGY LABORATORY [facility] - Department of Dermatology [address] Lab [address] [phone] documented in this encounter Visit Diagnoses Not on filedocumented in this encounter Care Teams Rn Testing Relationship Specialty Start Date End Date Luis Fernando Vo MD [address] [place] [address] [address] [place] [address] PCP - General Cardiovascular Disease 06/06/21 documented as of this encounter
--- OUTSIDE RECORDS SUMMARY | 2024-11-05 00:10 | XMS_ITS | Encounter Summary ---
Author Organization [facility] Address [address] [place] [address] Care Team Providers Care Residential Fee Appraiser Name Role Phone Luis Fernando Vo MD Primary Care Provider +1- [phone] Encounter Details Date Type Department Care Team (Latest Contact Info) Description 06/15/2021 9:28 AM CDT - 06/15/2021 9:39 AM CDT Hospital Encounter [facility] EKG/HOLTER [address] [place] [id number] Discharge Disposition: Home or Self Care Social [...] AM CDT documented as of this encounter Medications at Time of Discharge [...] (OCEAN; BABY AYR) 0.65 % nasal spray [place] 2 (two) sprays into each nostril 4 times daily as needed for Dry Nose 07/05/2021 simvastatin (ZOCOR) 20 MG tablet 06/04/2017 tamsulosin (FLOMAX) 0.4 MG capsule Take 0.4 mg by mouth once daily albuterol HFA (PROVENTIL;VENTOLIN;PRO AIR) 108 (90 Base) MCG/ACT inhaler INHALE 2 PUFFS BY MOUTH EVERY 4 HOURS NEEDED FOR SHORTNESS OF BREATH FOR 30 DAYS 06/01/2020 07/18/2021 HYDROcodone-acetaminoph en (NORCO) 5-325 MG tablet Take 2 tablets by mouth every 6 hours as needed For pain. 04/19/2021 06/20/2021 sulfamethoxazole-trimet hoprim (BACTRIM DS; SEPTRA DS) 800-160 MG tablet Take 1 tablet by mouth 2 times daily 06/12/2021 06/20/2021 documented as of this encounter Plan of Treatment Not on file documented as of this encounter Visit Diagnoses Not on filedocumented in this encounter Care Teams Residential Fee Appraiser Relationship Specialty Start Date End Date Luis Fernando Vo MD [address] [place] [phone] PCP - General Cardiovascular Disease 06/06/21 documented as of this encounter
--- OUTSIDE RECORDS SUMMARY | 2024-11-05 00:10 | XMS_ITS | Encounter Summary ---
Author Organization [facility] Address [address] [facility] [address] [facility] [place] [address] Care Team Providers Care Service Dog Trainer Name Role Phone Luis Fernando Vo MD Primary Care Provider +1- [phone] Reason for Visit * Reason Comments Procedure SMO2 nasal tip Encounter Details Date Type Department Care Team (Late st Contact Info) Description 06/27/2021 1:00 PM CDT Procedure visit [facility] [address] [place] [phone] Charles Sotelo MD [address] [place] [address] Melanoma in situ of nose (HCC) Social [...] Sign Reading Time Taken Comments Blood Pressure 134/92 06/27/2021 1:51 PM CDT Pulse 77 06/27/2021 1:51 PM CDT Temperature - - Respiratory Rate - - Oxygen Saturation - - Inhaled Oxygen Concentration - - Weight - - Height - - Body Mass Index - - documented in this encounter Patient Instructions * Patient Instructions* Elizabeth Jones - 06/27/2021 1:44 PM CDT It was a pleasure to see you today in clinic. Stitches: will not dissolve Follow up: * If you have a [...] options available to help improve the appearance. WOUND CARE INSTRUCTIONS 1. Leave your pressure bandage on for 48 hours. You will not need to perform [...] Vaseline/Aquaphor, and a bandage twice a day 9. After surgery, you may restart all [...] PLEASE CALL OUR OFFICE. Normal office hours: [phone] or [phone] After hours and holidays Optical Laboratory Manager application packaging consultant: [phone] If you have concerns about how your wound is healing and would like to send us a photo, please email us at [email or web address]. Please include your name and date of in the email. documented in this encounter Procedure Notes * Nina Isaac MD - 06/27/2021 3:20 PM CDTAssociated Order(s): PROC EXCISION SKIN FACE FACIAL MALIGNANT Procedure(s): W[place] EXC SKIN MALIG 3.1-4CM FACE,FACIAL Pre-Procedure Diagnose(s): Melanoma in situ of nose (HCC) Images from the original note were not included. Date of Service: 06/27/21 Surgery: Slow Mohs staged excision, subsequent stage Stage #: 2 Tumor Type: melanoma in situ Location: Nasal tip Derm-Path Pre-Op Size: 3.0x3.0 cm Post-Op Size: 4.0x4.0 cm Surgical margins: 0.5 cm Level of Defect: adipose Repair Type: path pending with Cresencio Sotelo MD Primary Surgeon: Charles Sotelo MD Rn Social Services: Marlin Margins positive on previous stage: 12-3 o'clock INDICATIONS: The risks of bleeding, infection, discomfort, incomplete removal, nerve damage, and scar formation were explained to the patient. The possible need for additional stages, additional surgical procedures or treatment may be recommended based on the pathology results. The patient understands that the p rolene suture needs to remain in place until [...] surgery pending histopathologic review. Nina Isaac MD,[facility] Dermatology Resident, PGY-3 ?? Associated attestation - Charles Sotelo MD - 06/30/2021 5:17 PM CDT A procedure was performed. I performed the procedure. See procedure note. Charles Sotelo MD documented in this encounter Plan of Treatment Not on file documented as of this encounter Procedures Procedure Name Priority Date/Time Associated Diagnosis Comments PROC EXCISION SKIN FACE FACIAL MALIGNANT Routine 06/27/2021 3:20 PM CDT Melanoma in situ of nose (HCC) DERMATOPATHOLOGY Routine 06/27/2021 1:35 PM CDT Melanoma in situ of nose (HCC) documented in this encounter Results * PROC EXCISION SKIN FACE FACIAL MALIGNANT [...] Sotelo MD Primary Surgeon: Charles Sotelo MD Rn Social Services: Marlin Margins positive on previous stage: 12-3 [...] surgery pending histopathologic review. Nina Isaac MD,[facility] Dermatology Resident, PGY-3 ?? Charles Sotelo MD PROCEDURE/MINOR SURG ICAL ORDERABLES * Dermatopathology (Specimen Count = 1) (06/27/2021 1:35 PM CDT) Case Report Dermatopathology Report ? Case: [id number] ? Authorizing Provider: ??Charles Sotelo MD ?Collected: ? 06/27/2021 01:35 PM ? Ordering Location: ? [facility] ?? Received: ?06/27/2021 01:39 PM ? Cutaneous Oncology ? Pathologist: ? Angelika Peters MD ? Specimen: ?Skin, nasal tip, 12-3 o'clock margin ? 1 4:14 PM CDT DERMATOPATHOLOGY LABORATORY Final Diagnosis Specimen A. 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 4:14 PM CDT DERMATOPATHOLOGY LABORATORY Microscopic Description Specimen A. SKIN, nasal tip, 12-3 o'clock margin: The specimen exhibits solar elastosis within the dermis. MART-1/Melan-A staining highlights regular periodicity of melanocytes along the dermoepidermal junction. This immunohistochemical stain was performed after the hematoxylin and eosin stain was reviewed to further assess margins for treatment. 4:14 PM CDT DERMATOPATHOLOGY LABORATORY Disclaimer An external [...] purposes. 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
--- OUTSIDE RECORDS SUMMARY | 2024-11-05 00:10 | XMS_ITS | Encounter Summary ---
Author Organization [facility] Address [address] [place] [address] Care Team Providers Care Email Marketing Manager Name Role Phone Luis Fernando Vo MD Primary Care Provider +1- [phone] Encounter Details Date Type Department Care Team (Late st Contact Info) Description 09/24/2018 Lab Requisition [facility] Lab [address] [facility] [place] [phone] Chiki Nicholson MD [address] [place] [address] Social History Tobacco Use Types [...] Priority Date/Time Associated Diagnosis Comments DERMATOPATHOLOGY Routine 09/23/2018 12:0 0 AM BOAT CAPTAIN documented in this encounter Results * DERMATOPATHOLOGY (09/23/2018 12:00 AM BOAT CAPTAIN) Case Report Dermatopathology Report ? Case: [id number] ? Authorizing Provider: ??Chiki Nicholson MD ?Collected: ? 09/23/2018 12:00 AM ? Pathologist: ? Mindi Blackman MD ?Received: ?09/24/2018 12:46 PM ? Specimen: ?Skin, right post vertex ? 12:57 PM [facility] DERMATOPATHOLOGY LABORATORY Final Diagnosis Specimen A. 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 The specimen consists of a shave biopsy measuring 00i32i7 mm. Jar 0. 12:57 PM [facility] DERMATOPATHOLOGY LABORATORY Microscopic Description Specimen A. SKIN, right post vertex: Sections reveal parakeratosis, acanthosis and keratinocyte dysmaturation which is most prominent in the lower epidermis. Focal nests are present in the dermis.This lesion is not present at the sampled margin of the specimen. 12:57 PM [facility] DERMATOPATHOLOGY LABORATORY Disclaimer An external and internal positive and negative controls are appropriate for the histochemical, immunohistochemical and immunofluorescence stain(s) in this case (if any), except where stated explicitly. The performance characteristics of the stain(s) cited in this report were developed and its performance characteristic determined by the Dermatopathology Laboratory at [facility]. These tests need not be, and therefore are not, approved by the [place] Food and Drug Administration. The tests are used for clinical purposes. Billing Codes Specimen Charges Stain Charges 02692 1 8 12:57 PM BOAT CAPTAIN DERMATOPATHOLOGY LABORATORY Embedded Images 8 12:57 PM BOAT CAPTAIN DERMATOPATHOLOGY LABORATORY Pathology/Cytolog y TISSUE SPECIMEN FROM SKIN / Unknown 09/23/2018 09/24/2018 12:46 PM BOAT CAPTAIN Chiki Nicholson MD LAB - PATHOLOGY/CYTO LOGY ORDERABLES DERMATOPATHOLOGY LABORATORY [facility] - Department of Dermatology [address] [place] [address], 5th Floor Lab [address] [phone] documented in this encounter Visit Diagnoses Not on filedocumented in this encounter Care Teams Email Marketing Manager Relationship Specialty Start Date End Date Luis Fernando Vo MD [facility] [address] [phone] PCP - General Cardiovascular Disease 06/06/21 documented as of this encounter
--- OUTSIDE RECORDS SUMMARY | 2024-11-05 00:10 | XMS_ITS | Encounter Summary ---
Author Organization [facility] Address [address] [place] [address] Care Team Providers Care Dermatology Procedural Physician Name Role Phone Luis Fernando Vo MD Primary Care Provider +1- [phone] Encounter Details Date Type Department Care Team (Late st Contact Info) Description 01/21/2019 Lab Requisition [facility] Care DermPath Lab [address] [facility], [place] [phone] Chiki Nicholson MD [address] [place] [address] Social History Tobacco Use Types [...] Priority Date/Time Associated Diagnosis Comments DERMATOPATHOLOGY Routine 01/20/2019 12:0 0 AM CDT documented in this encounter Results * DERMATOPATHOLOGY (01/20/2019 12:00 AM CDT) Case Report Dermatopathology Report ? Case: [id number] ? Authorizing Provider: ??Chiki Nicholson MD ?Collected: ? 01/20/2019 12:00 AM ? Pathologist: ? Angelika Peters MD ? Received: ?01/21/2019 11:27 AM ? Specimen: ?Skin, left preauric cheek ? 9 3:28 PM CDT DERMATOPATHOLOGY LABORATORY Final Diagnosis Specimen A. 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 9 3:28 PM CDT DERMATOPATHOLOGY LABORATORY Gross Description Specimen A: Received is one formalin filled container labeled with the patient's name and designated left preauric cheek. The specimen consists of a shave biopsy (2 pieces) measuring 2f9y0ds, bisected, & 7y4n7pr. Jar 0. 9 3:28 PM CDT DERMATOPATHOLOGY LABORATORY Microscopic Description Specimen A. SKIN, left preauric cheek: Sections show skin with irregularly shaped nests of keratinocytes with evidence of cornification. In some nests, there is loss of cohesion between the neoplastic cells, as well as individual dyskeratotic cells that lack intercellular bridges. 9 3:28 PM CDT DERMATOPATHOLOGY LABORATORY Disclaimer An external and internal positive and negative controls are appropriate for the histochemical, immunohistochemical and immunofluorescence stain(s) in this case (if any), except where stated explicitly. The performance characteristics of the stain(s) cited in this report were developed and its performance characteristic determined by the Dermatopathology Laboratory at [facility], directed by Dr. Azalea Peters. These tests need not be, and therefore are not, approved by the [place] Food and Drug Administration. The tests are used for clinical purposes. Billing Codes Specimen Charges Stain Charges 72142 1 9 3:28 PM CDT DERMATOPATHOLOGY LABORATORY Embedded Images 9 3:28 PM CDT DERMATOPATHOLOGY LABORATORY Pathology/Cytolog y TISSUE SPECIMEN FROM SKIN / Unknown 01/20/2019 01/21/2019 11:27 AM CDT Chiki Nicholson MD LAB - PATHOLOGY/CYTO LOGY ORDERABLES DERMATOPATHOLOGY LABORATORY [facility] - Department of Dermatology [address] [place] [address] 5th Floor Lab [address] [phone] documented in this encounter Visit Diagnoses Not on filedocumented in this encounter Care Teams Dermatology Procedural Physician Relationship Specialty Start Date End Date Luis Fernando Vo MD [address] [phone] PCP - General Cardiovascular Disease 06/06/21 documented as of this encounter
--- OUTSIDE RECORDS SUMMARY | 2024-11-05 00:10 | XMS_ITS | Encounter Summary ---
Author Organization [facility] Address [address] [place] [address] Care Team Providers Care Lead Technical Architect Name Role Phone Luis Fernando Vo MD Primary Care Provider +1- [phone] Encounter Details Date Type Department Care Team (Latest Contact Info) Description 06/15/2021 9:40 AM CDT - 06/15/2021 11:59 PM CDT Hospital Encounter [facility] OP DRAW STATION [address] [place] [phone] Discharge Disposition: Home or Self Care Social [...] MG tablet Take by mouth. 07/16/2017 fexofenadine (JENNIFRE) 60 MG tablet Take by mouth. 07/16/2017 hydroCHLOROthiazide (HYDRODIURIL) 25 MG tablet Take 25 mg by mouth once daily omeprazole EC (PRILOSEC OTC) 20 MG tablet Take 20 mg by mouth once daily saline nasal spray (OCEAN; BABY AYR) 0.65 % nasal spray [place] 2 (two) sprays into each nostril 4 [...] on filedocumented in this encounter Care Teams Lead Technical Architect Relationship Specialty Start Date End Date Luis Fernando Vo MD [address] [facility] [facility] [address] [place] [phone] PCP - General Cardiovascular Disease 06/06/21 documented as of this encounter
--- OUTSIDE RECORDS SUMMARY | 2024-11-05 00:10 | XMS_ITS | Encounter Summary ---
Author Organization [facility] Address [address] [facility] [place] [address] Care Team Providers Care Utility Helicopter Repairer Name Role Phone Luis Fernando Vo MD Primary Care Provider +1- [phone] Encounter Details Date Type Department Care Team (Latest Contact Info) Description 06/15/2021 Travel Social History Tobacco Use Types Packs/Day Years [...] AM CDT documented as of this encounter Plan of Treatment Not on file documented as of this encounter Visit Diagnoses Not on filedocumented in this encounter Care Teams Utility Helicopter Repairer Relationship Specialty Start Date End Date Luis Fernando Vo MD [address] [place] [address] [address] [place] [phone] PCP - General Cardiovascular Disease 06/06/21 documented as of this encounter
--- OUTSIDE RECORDS SUMMARY | 2024-11-05 00:10 | XMS_ITS | Encounter Summary ---
Author Organization [facility] Address [address] [place] [address] Care Team Providers Care Easement Man Name Role Phone Luis Fernando Vo MD Primary Care Provider +1- [phone] Encounter Details Date Type Department Care Team (Latest Contact Info) Description 06/15/2021 8:57 AM CDT - 06/15/2021 9:27 AM CDT Hospital Encounter [facility] [address] [place] [phone] Discharge Disposition: Home or Self Care Anesthesia Record Procedure Summary Procedure Name Responsible Anesthesiologist Anesthesia Start Time Anesthesia Stop Time RECONSTRUCTION OF NASAL TIP DEFECT, POSSIBLE AURICULAR CARTILAGE GRAFT (Nose) Micaela Khan MD 07/05/21 0906 07/05/21 1137 Events Date Time Event Comment 07/05/2021 0740 0906 An Start 0906 Pt In Room 0906 An Start Data 0918 Anes Timeout 0918 PT Reassessment 0918 Induction 0920 An Intubation 0937 Anes Ready 0938 Local Infiltration by Surgeo n 0949 Time Out Anesthesia part icipated in timeout at the time documented in the record by nursing 0949 Proc Start 1124 Proc Stop 1124 An Emergence 1129 Extubation 1132 an stop data 1132 Pt out of Room 1132 ANPTO2 1137 An Stop Meds * Agents No agents on file. * Blood No blood administrations on file. Lines, Drains, and Airways Type Details Placement Removal Peripheral IV Date: 07/05/21; Time : 0810; Orientation: Distal, Posterior, Left 07/05/21 0810 by Lyric Graves RN 07/05/21 1321 by Lyric Graves RN ETT Date: 07/05/21; Time : 0939; Placed By: MARCUS Elias; Vent: easy with [...] visualization, Bilateral breath sounds, CO2 Monitor 07/05/21 0939 by Rosaline Willingham APRN-CRNA 07/05/21 1129 by Anjana Black DO Procedural Site (Incision) 07/05/21; 1033; Nose; XEROFORM; 07/05/21; 1940 07/05/21 1033 by Mitzi Hernadez RN 07/05/21 194 by Generic, Auto Release documented in this [...] Sign Reading Time Taken Comments Blood Pressure 143/67 06/15/2021 9:00 AM CDT Pulse 87 06/15/2021 9:00 AM CDT Temperature 36.2 ??C (97.2 ??F) 06/15/2021 9:00 AM CD T Respiratory Rate 16 06/15/2021 9:00 AM CDT Oxygen Saturation 95% 06/15/2021 9:00 AM CDT Inhaled Oxygen Concentration - - Weight 92.1 kg (203 lb) 06/15/2021 9:00 AM CDT Height 175.3 cm (5' 9 ) 06/15/2021 9:00 AM CDT Body Mass Index 29.98 06/15/2021 9:00 AM CDT documented in this encounter Medications at Time [...] (OCEAN; BABY AYR) 0.65 % nasal spray [place] 2 (two) sprays into each nostril 4 [...] Procedure Name Priority Date/Time Associated Diagnosis Comments TYPE + SCREEN PANEL Routine 06/15/2021 1 0:10 AM CDT Pre-op evaluation CBC W/O DIFFERENTIAL Routine 06/15/2021 10:10 AM CDT Pre-op evaluation BASIC METABOLIC PANEL (CALCIUM TOTAL) Routine 06/15/2021 10:10 AM CDT Pre-op evaluation EKG 12-LEAD Routine 06/15/2021 9:17 AM CDT Pre-op evaluation documented in this encounter Results * TYPE + SCREEN PANEL (06/15/2021 10:10 AM CDT) [facility] Antibody Screen NEG 11:14 AM CDT [facility] BLOOD [facility]ANK LAB ABO Rh O POS 06/15/2021 11:14 AM CDT [facility] Blood Bank BLOOD SPECIMEN / Unknown Lab Venipuncture / Unknown 06/15/2021 10:10 AM CDT 06/15/2021 10:20 AM CDT Paris Epstein DO LAB - BLOOD BANK O RDERABLES Performing Organization Address City/State/[facility] Co de Phone Number [facility]OD [facility] [address] [place] [address], [facility] [phone] * (ABNORMAL) BASIC METABOLIC PANEL (CALCIUM TOTAL) (06/15/2021 10:10 AM CDT) [facility] BUN 19 7 - 26 mg/dL 06/15/2021 10:49 AM CDT [facility] Creatinine 1.54(H) 0.71 - 1.16 mg/dL 06/15/2021 10:49 AM CDT [facility] Sodium 141 136 - 145 mmol/L 06/15/2021 10:49 AM CDT [facility] LABOR[facility] Potassium 4.3 3.5 - 4.5 mmol/L 06/15/2021 10:49 AM CDT [facility] Chloride 106 98 - 107 mmol/L 06/15/2021 10:49 AM [facility] CO2 26 22 - 29 mmol/L 06/15/2021 10:49 AM [facility] Glucose 110 70 - 115 mg/dL 06/15/2021 10:49 AM [facility] Calcium 9.7 8.4 - 10.2 mg/dL 06/15/2021 10:49 AM [facility] Anion Gap 13 8 - 18 06/15/2021 10:49 AM [facility] BUN/Creatinine Ratio 12 7 - 23 06/15/2021 10:49 AM [facility] Osmolality Calculated 295 270 - 300 mOsm/kg 06/15/2021 10:49 AM [facility] eGFR by CKD-EPI 41(L) >=90 mL/min/1.7 3 m2 06/15/2021 10:49 AM [facility] Blood BLOOD SPECIMEN / Unknown Lab Venipuncture / Unknown 06/15/2021 10:10 AM T 06/15/2021 10:19 AM [facility] Paris Epstein DO LAB - CHEMISTRY OR DERABLES [facility] [address] [place] [phone] [phone] * CBC W/O DIFFERENTIAL (06/15/2021 10:10 AM [facility]) WBC 7.6 3.5 - 10.5 10? 3 /uL 06/15/2021 10:28 AM [facility] RBC 5.48 4.30 - 5.70 10? 6 /uL 06/15/2021 10:28 AM [facility] Hemoglobin 16.2 12.0 - 17.6 g/dL 06/15/2021 10:28 AM [facility] Hematocrit 48.4 35.2 - 51.7 % 06/15/2021 10:28 AM [facility] MCV 88.3 80.7 - 98.3 fL 06/15/2021 10:28 AM [facility] MCH 29.6 26.7 - 34.0 pg 06/15/2021 10:28 AM [facility] MCHC 33.5 30.8 - 35.9 g/dL 06/15/2021 10:28 AM [facility] Platelet Count 177 150 - 400 10? 3 /uL 06/15/2021 10:28 AM [facility] RDW-SD 42.3 36.0 - 50.0 fL 06/15/2021 10:28 AM [facility] RDW-CV 13.1 11.2 - 14.8 % 06/15/2021 10:28 AM [facility] MPV 10.4 9.4 - 12.9 fL 06/15/2021 10:28 AM [facility] nRBC Absolute 0.00 0 10? 3 /uL 06/15/2021 10:28 AM [facility] nRBC Auto 0.0 0 /100 WBC 06/15/2021 10:28 AM [facility] Blood BLOOD SPECIMEN / Unknown Lab Venipuncture / Unknown 06/15/2021 10:10 AM CDT 06/15/2021 10:20 AM CDT Paris Epstein DO LAB - HEMATOLOGY O RDERABLES Performing Organization Address City/State/[facility] Co de Phone Number [facility] [address] [place] [phone], [facility] [phone] * EKG 12-LEAD (06/15/2021 9:17 AM CDT) Ventricular Rate 83 BPM [facility] MUSE Atrial Rate 83 BPM [facility] MUSE P-R Interval 182 ms [facility] QRS Duration ms 102 ms [facility] MUSE Q-T Interval ms 396 ms [facility] MUSE QTC Calculation (Bezet) 465 ms [facility] MUSE Calculated P [place] 62 degrees [facility] MUSE Calculated R [place] -28 degrees [facility] MUSE Calculated T [place] 90 degrees [facility] MUSE Interpretation EKG NORMAL SINUS RHYTHM POOR R WAVE PROGRESSION ABNORMAL ECG NO PREVIOUS ECGS AVAILABLE Confirmed by fellow Lc Klein ([id number]) on 06/15/2021 3:10:15 PM Confirmed by Jone Summers ([id number]) on 06/17/2021 12:09:27 AM [facility] MUSE 06/15/2021 9:17 AM CDT 06/17/2021 12:09 AM CDT Paris Epstein DO ECG ORDERABLES [facility] documented in this encounter Visit Diagnoses Diagnosis Pre-op evaluation- Primary Preoperative examination, unspecified documented in this encounter Care Teams Easement Man Relationship Specialty Start Date End Date Luis Fernando Vo MD [address] [facility] [address] [address] PCP - General Cardiovascular Disease 06/06/21 documented as of this encounter
--- OUTSIDE RECORDS SUMMARY | 2024-11-05 00:12 | XMS_ITS | Encounter Summary ---
Author Organization [facility] Address [address] [place] [address]. 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
--- OUTSIDE RECORDS SUMMARY | 2024-11-05 00:12 | XMS_ITS | Encounter Summary ---
Author Organization [facility] Address [address] [place] [address]. 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 No / Unsure 12/02/2020 2:56 PM BATTERY PLATE REMOVER documented as of this encounter Plan of Treatment Not on file documented as of this encounter Visit Diagnoses Not on filedocumented in this encounter
--- OUTSIDE RECORDS SUMMARY | 2024-11-05 00:12 | XMS_ITS | Clinical Summary ---
Author Organization [facility] Address [address] [place] [address]. [place], [place] [id number] [place] [id number] Care Team Providers Care Bow Stapler Name Role Phone Unavailable Primary Care Provider Unavailabl e Immunizations Name Administration Dates Next Due MODERNA COVID-19 (12+) MRNA, LNP-S, PF, 100 MCG/ 0.5 ML DOSE 12/30/2020,12/02/2020 Social History Tobacco Use Types Packs/Day Years Used Date Smoking Tobacco: Never Assessed Sex and Gender Information Value Date Recorded Sex Assigned at Not on file Legal Sex Male 11:02 AM RAD TECH Gender Identity Not on file Sexual Orientation Not on file Plan of Treatment Health Maintenance Due Date Last Done Comments DTaP, Tdap and Td Vaccines ( 1 - Tdap) 1954 Zoster Vaccines (1 of 2) 1985 RSV Immunization or 60+ Years (1 - 1-dose 75+ series) 2010 Pneumococcal Vaccine: 65+ Years (2 of 2 - PPSV23 or PCV20) 11/08/2021 11/08/2020 COVID-19 Vaccine (3 - 2023-2 5 season) 2024 12/30/2020, 12/02/2020 Influenza Adult (#1) 2024 09/01/2019 Meningococcal Vaccine Aged Out No main maksim eligible based on patient's age to complete this topic RSV Immunizations Under 20 Months Aged Out No longer eligible b ased on patient's age to complete this topic
--- OUTSIDE RECORDS SUMMARY | 2024-11-05 00:12 | XMS_ITS | Clinical Summary ---
Author Organization Unknown Care Team Providers Care Paleology Professor Name Role Phone MIKE DASILVA Unavailable Jen onur GALLARDO RN, HELENA Unavailable Unavailable Payers Payer Name Policy Type Policy Number Effective Date Expira tion Date MEDICARE.[facility] [place] [id number] Problems Condition Name Condition Details Condition Category Status Onset Date Resolution Date Last Treatment Date Treating Clinician Comments HYPERTENSIVE HEART DISEASE WITH HEART FAILURE Active 2021-11 00:00: 00 ACUTE ON CHRONIC SYSTOLIC (CONGESTIVE) HEART FAILURE Active 2021-11 00:00: 00 ISCHEMIC CARDIOMYOPAT HY Active 11-04 00:00: 00 CHRONIC OBSTRUCTIVE PULMONARY DISEASE W (ACUTE) EXACERBATION Active 2021-11 00:00: 00 ATHSCL HEART DISEASE OF [place] CORONARY ARTERY W/O ANG PCTRS Active 11-04 00:00: 00 MUSCLE WEAKNESS (GENERALIZED ) Active 2021-11 00:00: 00 UNSPECIFIED ATRIAL FIBRILLATION Active 11-04 00:00: 00 OTHER INTERVERTEBR AL DISC DISPLACEMENT , LUMBAR REGION Active 11-04 00:00: 00 HYPERGLYCEMI A, UNSPECIFIED Active 2021-11 00:00: 00 GOUT, UNSPECIFIED Active 11-04 00:00: 00 BENIGN PROSTATIC HYPERPLASIA WITH LOWER URINARY TRACT SYMP Active 11-13 00:00: 00 OTHER RETENTION OF URINE Active 11-04 00:00: 00 FREQUENCY OF MICTURITION Active 11-04 00:00: 00 OTHER SPECIFIED URINARY INCONTINENCE Active 11-04 00:00: 00 PURE HYPERCHOLEST EROLEMIA, UNSPECIFIED Active 11-04 00:00: 00 PRESENCE OF AUTOMATIC (IMPLANTABLE ) CARDIAC DEFIBRILLATO R Active 2021-11 00:00: 00 ASSISTED (CURRENT) USE OF ASPIRIN Active 2021-11 00:00: 00 ASSISTED (CURRENT) USE OF INHALED STEROIDS Active 2021-11 00:00: 00 ASSISTED (CURRENT) USE OF NON-STEROIDA L NON-INFLAM (NSAID) Active 2021-11 00:00: 00 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 Active 2021-11 00:00: 00 PERSONAL HISTORY OF MALIGNANT NEOPLASM OF BRONCHUS AND LUNG Active 11-04 00:00: 00 PERSONAL HISTORY OF OTHER VENOUS THROMBOSIS AND EMBOLISM Active 11-04 00:00: 00 PRESENCE OF LEFT ARTIFICIAL HIP JOINT Active 05-01 00:00: 00 PRESENCE OF AORTOCORONAR Y BYPASS GRAFT Active 2016-11 00:00: 00 PERSONAL HISTORY OF NICOTINE DEPENDENCE Active 11-04 00:00: 00 Allergies, Adverse Reactions, Alerts Allergy Name Allergy Type Status Severity Reaction(s) Onset Date Inactive Date Treating Clinician Comments NO KNOWN ALLERGIES Propensity to adverse reactions Active 2021-11 11:02: 07 Medications Ordered Medication Name Filled Medication Name Start Date Stop Date Current Medication? Ordering Clinician Indication Dosage Frequency Signature (SIG) Comments Components Entresto 49 mg-51 mg tablet 2021-11 00:00: 00 Yes [id number] HEART FAILURE 1 tablet 2 TIMES DAILY 1 tablet 2 TIMES DAILY (route: oral) Med Classific ation: Cardiovas cular Therapy Agents furosemide 40 mg tablet 2021-11 00:00: 00 Yes [id number] SWELLING 1 tablet DAILY 1 tablet DAILY (route: oral) Med Classific ation: Cardiovas cular Therapy Agents metoprolol tartrate 50 mg tablet 2021-11 00:00: 00 Yes [id number] HIGH BLOOD PRESSURE 1 tablet 2 TIMES DAILY 1 tablet 2 TIMES DAILY (route: oral) Med Classific ation: Cardiovas cular Therapy Agents potassium chloride ER 10 mEq tablet,exte nded release 2021-11 00:00: 00 Yes [id number] SUPPLEMENT 2 tablet DAILY 2 tablet DAILY (route: oral) Med Classific ation: Electroly te Balance-N utritiona l Products prednisone 10 mg tablet 2021-11 00:00: 00 10-05 23:59 :00 No [id number] STEROID Per instruc tions DAILY Per instructio ns DAILY (route: oral) Med Classific ation: Endocrine cephalexin 250 mg capsule 2021-11 00:00: 00 Yes [id number] PROPHYLACTI C 1 capsule BEDTIME 1 capsule BEDTIME (route: oral) Med Classific ation: Anti-Infe ctive Agents Advair Diskus 250 mcg-50 mcg/dose powder for inhalation 2021-11 00:00: 00 10-02 00:00 :00 No [id number] Per instruc tions TWICE A DAY Per instructio ns TWICE A DAY (route: inhalation ) Med Classific ation: Respirato ry Therapy Agents albuterol sulfate HFA 90 mcg/actuati on aerosol inhaler 2021-11 00:00: 00 Yes [id number] SHORTNESS OF BREATH, WHEEZING 2 puff EVERY 4 HOURS 2 puff EVERY 4 HOURS (route: inhalation ) Med Classific ation: Respirato ry Therapy Agents rosuvastati n 20 mg tablet 2021-11 00:00: 00 Yes [id number] HIGH CHOLESTEROL 1 tablet BEDTIME 1 tablet BEDTIME (route: oral) Med Classific ation: Cardiovas cular Therapy Agents Advair Diskus 250 mcg-50 mcg/dose powder for inhalation 2021-11 00:00: 00 Yes [id number] CHRONIC OBSTRUCTIVE PULMONARY DISEASE 1 inhalat ion 2 TIMES DAILY 1 inhalation 2 TIMES DAILY (route: inhalation ) Med Classific ation: Respirato ry Therapy Agents allopurinol 100 mg tablet 2021-11 00:00: 00 Yes [id number] GOUT PREVENTION 1 tablet DAILY 1 tablet DAILY (route: oral) Med Classific ation: Gout and Hyperuric emia Therapy aspirin 81 mg tablet,jay yed release 2021-11 00:00: 00 Yes [id number] HEART HEALTH 1 tablet DAILY 1 tablet DAILY (route: oral) Med Classific ation: Hematolog ical Agents fexofenadin e 180 mg tablet 2021-11 00:00: 00 Yes [id number] ALLERGIES 1 tablet DAILY 1 tablet DAILY (route: oral) Med Classific ation: Respirato ry Therapy Agents Flomax 0.4 mg capsule 2021-11 00:00: 00 Yes [id number] PROSTATE 1 capsule DAILY 1 capsule DAILY (route: oral) Med Classific ation: Genitouri nary Therapy multivitami n tablet 2021-11 00:00: 00 Yes [id number] SUPPLEMENT 1 tablet DAILY 1 tablet DAILY (route: oral) Med Classific ation: Electroly te Balance-N utritiona l Products omeprazole 20 mg capsule,del ayed release 2021-11 00:00: 00 Yes [id number] GASTROESOPH AGEAL REFLUX DISEASE 1 capsule DAILY 1 capsule DAILY (route: oral) Med Classific ation: Gastroint estinal Therapy Agents Pain Relief (acetaminop hen) 650 mg tablet,exte nded release 2021-11 00:00: 00 Yes [id number] PAIN 1 tablet EVERY 8 HOURS 1 tablet EVERY 8 HOURS (route: oral) Med Classific ation: Analgesic , Anti-infl ammatory or Antipyret ic prochlorper azine maleate 10 mg tablet 2021-11 00:00: 00 Yes [id number] NAUSEA 1 tablet EVERY 6 HOURS 1 tablet EVERY 6 HOURS (route: oral) Med Classific ation: Gastroint estinal Therapy Agents Immunizations Ordered Immunization Name Filled Immunization Name Date Status Comments Refusal Reason BOOSTER -COVID-19 VACCINE, COVID-19 VACCINE 2022-08-03 00:00:00 BOOSTER -COVID-19 VACCINE, COVID-19 VACCINE 2022-04-09 00:00:00 DOSE #2, COVID-19 VACCINE 2020-12-30 00:00:00 DOSE #1, COVID-19 VACCINE 2020-12-02 00:00:00 Vital Signs Vital Name Observation Time Observation Value Commen ts Temperature 2022-11-01 12:52:00.000 97.8 [degF] Temperature 2022-10-16 10:53:00.000 97.1 [degF] Temperature 2022-10-11 14:52:00.000 96.9 [degF] Temperature 2022-10-04 09:31:00.000 97 [degF] Temperature 2022-10-02 14:40:00.000 97.6 [degF] BMI (%) 2022-10-02 14:40:00.000 31 kg/m2 Height 2022-10-02 14:40:00.000 67 [in_us] Pulse 2022-11-01 12:52:00.000 60 /min Pulse 2022-10-16 11:23:00.000 64 /min Pulse 2022-10-11 14:52:00.000 62 /min Pulse 2022-10-04 09:31:00.000 69 /min Pulse 2022-10-02 14:40:00.000 60 /min O2 Saturation (%) 2022-11-01 12:52:00.000 98 % O2 Saturation (%) 2022-10-16 10:53:00.000 97 % O2 Saturation (%) 2022-10-11 14:52:00.000 96 % O2 Saturation (%) 2022-10-04 09:31:00.000 97 % O2 Saturation (%) 2022-10-02 14:40:00.000 96 % Respirations 2022-11-01 12:52:00.000 18 /min Respirations 2022-10-16 10:53:00.000 18 /min Respirations 2022-10-11 14:52:00.000 18 /min Respirations 2022-10-04 09:31:00.000 18 /min Respirations 2022-10-02 14:40:00.000 18 /min Weight (lbs) 2022-11-01 12:52:00.000 194 [lb_av] Weight (lbs) 2022-10-16 10:53:00.000 194 [lb_av] Weight (lbs) 2022-10-11 14:53:00.000 194.6 [lb_av] Weight (lbs) 2022-10-04 09:36:00.000 200 [lb_av] Weight (lbs) 2022-10-02 14:40:00.000 203 [lb_av] Systolic Blood Pressure 2022-11-01 12:52:00.000 104 mm [Hg] Systolic Blood Pressure 2022-10-16 10:53:00.000 108 mm [Hg] Systolic Blood Pressure 2022-10-11 14:52:00.000 116 mm [Hg] Systolic Blood Pressure 2022-10-04 09:31:00.000 112 mm [Hg] Systolic Blood Pressure 2022-10-02 14:40:00.000 124 mm [Hg] Diastolic Blood Pressure 2022-11-01 12:52:00.000 66 mm [Hg] Diastolic Blood Pressure 2022-10-16 10:53:00.000 58 mm [Hg] Diastolic Blood Pressure 2022-10-11 14:52:00.000 68 mm [Hg] Diastolic Blood Pressure 2022-10-04 09:31:00.000 64 mm [Hg] Diastolic Blood Pressure 2022-10-02 14:40:00.000 68 mm [Hg] Plan of Treatment Planned Activity Planned Date Details Comments Future Scheduled Test MEDICATION MANAGEMENT; SKILLED NURSE TO REVIEW MEDICATIONS FOR INTERACTIONS, EFFECTIVENESS OF DRUG THERAPY, AND SIGNS/SYMPTOMS OF ADVERSE REACTIONS. MAY INSTRUCT AND REINFORCE MEDICATION TEACHING RELATED TO THE USE OF MEDICATIONS, DOSAGE, FREQUENCY, PURPOSE, SIDE EFFECTS, AND TO REPORT COMPLICATIONS. [code = MEDICATION MANAGEMENT; SKILLED NURSE TO REVIEW MEDICATIONS FOR INTERACTIONS, EFFECTIVENESS OF DRUG THERAPY, AND SIGNS/SYMPTOMS OF ADVERSE REACTIONS. MAY INSTRUCT AND REINFORCE MEDICATION TEACHING RELATED TO THE USE OF MEDICATIONS, DOSAGE, FREQUENCY, PURPOSE, SIDE EFFECTS, AND TO REPORT COMPLICATIONS.] Future Scheduled Test RESPIRATOR Y SYSTEM MANAGEMENT; SKILLED NURSE TO ASSESS AND TEACH RELATED TO ALTERED RESPIRATORY STATUS TO MINIMIZE COMPLICATIONS AND REDUCE HOSPITALIZATION. [code = RESPIRATORY SYSTEM MANAGEMENT; SKILLED NURSE TO ASSESS AND TEACH RELATED TO ALTERED RESPIRATORY STATUS TO MINIMIZE COMPLICATIONS AND REDUCE HOSPITALIZATION.] Future Scheduled Test COPD MANAG EMENT; SKILLED NURSE TO ASSESS AND TEACH SIGNS/SYMPTOMS OF COPD EXACERBATION AND PROVIDE EARLY INTERVENTIONS TO MINIMIZE RISK OF HOSPITALIZATION. SKILLED NURSE TO INSTRUCT ON SELF-CARE MANAGEMENT INCLUDING BREATHING TECHNIQUES, AIRWAY CLEARANCE, AND PROPER USE OF COPD MEDICATIONS. ASSESS PATIENT/CAREGIVER ABILITY TO MONITOR AND RECORD VITALS SIGNS INCLUDING PULSE OXIMETRY AND BLOOD PRESSURE. PULSE OXIMETER AND BP MONITOR TO BE PROVIDED IF NEEDED [code = COPD MANAGEMENT; SKILLED NURSE TO ASSESS AND TEACH SIGNS/SYMPTOMS OF COPD EXACERBATION AND PROVIDE EARLY INTERVENTIONS TO MINIMIZE RISK OF HOSPITALIZATION. SKILLED NURSE TO INSTRUCT ON SELF-CARE MANAGEMENT INCLUDING BREATHING TECHNIQUES, AIRWAY CLEARANCE, AND PROPER USE OF COPD MEDICATIONS. ASSESS PATIENT/CAREGIVER ABILITY TO MONITOR AND RECORD VITALS SIGNS INCLUDING PULSE OXIMETRY AND BLOOD PRESSURE. PULSE OXIMETER AND BP MONITOR TO BE PROVIDED IF NEEDED ] Future Scheduled Test FALL REDUC TION MANAGEMENT; NURSING TO PROVIDE SKILLED ASSESSMENT, EDUCATION, AND INTERVENTION TO IDENTIFY FALL RISK FACTORS SUCH MEDICATIONS THAT MAY CAUSE DIZZINESS, CHRONIC DISEASES, PSYCHOLOGICAL FACTORS, AND EMPOWER/EDUCATE PATIENT/CAREGIVER TO MINIMIZE FALL RISK. [code = FALL REDUCTION MANAGEMENT; NURSING TO PROVIDE SKILLED ASSESSMENT, EDUCATION, AND INTERVENTION TO IDENTIFY FALL RISK FACTORS SUCH MEDICATIONS THAT MAY CAUSE DIZZINESS, CHRONIC DISEASES, PSYCHOLOGICAL FACTORS, AND EMPOWER/EDUCATE PATIENT/CAREGIVER TO MINIMIZE FALL RISK.] Future Scheduled Test GENITOURIN MARILY MANAGEMENT; SKILLED NURSE TO ASSESS AND TEACH RELATED TO ALTERED GENITOURINARY STATUS TO MINIMIZE COMPLICATIONS AND REDUCE HOSPITALIZATION. [code = GENITOURINARY MANAGEMENT; SKILLED NURSE TO ASSESS AND TEACH RELATED TO ALTERED GENITOURINARY STATUS TO MINIMIZE COMPLICATIONS AND REDUCE HOSPITALIZATION. ] Future Scheduled Test URINARY IN CONTINENCE MANAGEMENT; SKILLED NURSE TO ASSESS AND TEACH MANAGEMENT OF URINARY INCONTINENCE. TEACH/INSTRUCT ON PREVENTING INFECTION AND SKIN BREAKDOWN. SKILLED NURSE MAY INSTRUCT IN BLADDER TRAINING PROGRAM INDICATED. [code = URINARY INCONTINENCE MANAGEMENT; SKILLED NURSE TO ASSESS AND TEACH MANAGEMENT OF URINARY INCONTINENCE. TEACH/INSTRUCT ON PREVENTING INFECTION AND SKIN BREAKDOWN. SKILLED NURSE MAY INSTRUCT IN BLADDER TRAINING PROGRAM INDICATED.] Future Scheduled Test INTERMITTE NT STRAIGHT CATHETERIZATION MANAGEMENT; SKILLED NURSE TO INSTRUCT PATIENT / CAREGIVER ON INTERMITTENT CATHETERIZATION TO BE DONE PRN FOR URINARY RETENTION. INSTRUCT PATIENT/CAREGIVER IN SIGNS / SYMPTOMS OF INFECTIONS/COMPLICATIONS, AND PROPER PERINEAL CARE. [code = INTERMITTENT STRAIGHT CATHETERIZATION MANAGEMENT; SKILLED NURSE TO INSTRUCT PATIENT / CAREGIVER ON INTERMITTENT CATHETERIZATION TO BE DONE PRN FOR URINARY RETENTION. INSTRUCT PATIENT/CAREGIVER IN SIGNS / SYMPTOMS OF INFECTIONS/COMPLICATIONS, AND PROPER PERINEAL CARE. ] Future Scheduled Test SKILLED NU RSE TO ASSESS, EVALUATE, AND DEVELOP AN INDIVIDUALIZED PLAN OF CARE. AGENCY MAY ACCEPT ORDERS FROM CONSULTING PHYSICIANS MD SATNAM ELDER MD SN TO OBSERVE/ASSESS RISK FOR FALLS AND INSTRUCT IN FALL PREVENTION, HOME SAFETY, MEDICATION MANAGEMENT, INFECTION PREVENTION, AND NUTRITION MANAGEMENT. SN MAY PERFORM O2 SATURATION LEVEL ON ADMISSION, EVERY VISIT AND PRN TO ASSESS PATIENT, WITH NOTIFICATION TO THE PHYSICIAN IF SATURATION IS 90% IN THE ABSENCE OF MORE SPECIFIC PARAMETERS FROM THE PHYSICIAN. AGENCY MAY PERFORM A RESUMPTION OF CARE VISIT FOLLOWING ANY HOSPITAL ADMISSION. SKILLED NURSE TO ASSESS/EVALUATE CO-MORBID CONDITIONS AND ANY NEW CONDITIONS THAT PRESENT THEMSELVES DURING THIS EPISODE TO IDENTIFY CHANGES AND INTERVENE TO MINIMIZE COMPLICATIONS. [code = SKILLED NURSE TO ASSESS, EVALUATE, AND DEVELOP AN INDIVIDUALIZED PLAN OF CARE. AGENCY MAY ACCEPT ORDERS FROM CONSULTING PHYSICIANS MD SATNAM ELDER MD SN TO OBSERVE/ASSESS RISK FOR FALLS AND INSTRUCT IN FALL PREVENTION, HOME SAFETY, MEDICATION MANAGEMENT, INFECTION PREVENTION, AND NUTRITION MANAGEMENT. SN MAY PERFORM O2 SATURATION LEVEL ON ADMISSION, EVERY VISIT AND PRN TO ASSESS PATIENT, WITH NOTIFICATION TO THE PHYSICIAN IF SATURATION IS 90% IN THE ABSENCE OF MORE SPECIFIC PARAMETERS FROM THE PHYSICIAN. AGENCY MAY PERFORM A RESUMPTION OF CARE VISIT FOLLOWING ANY HOSPITAL ADMISSION. SKILLED NURSE TO ASSESS/EVALUATE CO-MORBID CONDITIONS AND ANY NEW CONDITIONS THAT PRESENT THEMSELVES DURING THIS EPISODE TO IDENTIFY CHANGES AND INTERVENE TO MINIMIZE COMPLICATIONS.] Future Scheduled Test PAIN MANAG EMENT; SKILLED NURSE TO OBSERVE, ASSESS, AND PROVIDE EDUCATION ON PAIN MANAGEMENT TECHNIQUES. [code = PAIN MANAGEMENT; SKILLED NURSE TO OBSERVE, ASSESS, AND PROVIDE EDUCATION ON PAIN MANAGEMENT TECHNIQUES.] Future Scheduled Test VENIPUNCTU RE DIAGNOSTIC; SKILLED NURSE TO PERFORM VENIPUNCTURE FOR BMP AND MAGNESIUM WEEK OF . DELIVER TO [facility] FAX RESULTS TO SATNAM THOMAS MD [phone] [code = VENIPUNCTURE DIAGNOSTIC; SKILLED NURSE TO PERFORM VENIPUNCTURE FOR BMP AND MAGNESIUM OF . DELIVER TO [facility] FAX RESULTS TO SATNAM THOMAS MD [phone]] Future Scheduled Test PRN VISITS ; PATIENT REQUIRES 1 PRN HALF-WAY VISIT FOR S/S OF COPD EXACERBATION [code = PRN VISITS; PATIENT REQUIRES 1 PRN HALF-WAY VISIT FOR S/S OF COPD EXACERBATION] Future Scheduled Test RISK FOR H OSPITALIZATION; SKILLED NURSE TO INSTRUCT PATIENT/CAREGIVER ON RISK FOR HOSPITALIZATION, TEACH SIGNS AND SYMPTOMS THAT PUT PATIENT AT RISK, WHEN TO NOTIFY NURSE OF COMPLICATIONS/DECLINE, AND WHEN TO CALL 911. SKILLED NURSE TO INSTRUCT PATIENT/CAREGIVER ON: SIGNS AND SYMPTOMS TO BE ON ALERT FOR EARLY INTERVENTION, PRIOR TO NEEDING EMERGENCY SERVICES CALL [facility] NURSE TO KEEP VACUUM BOTTLE ASSEMBLER SYMPTOM REPORT FOR VISIBLE REFERENCE NOTIFY SKILLED NURSE/PHYSICIAN FOR DECLINE IN STATUS WHEN AND HOW TO CALL HOME HEALTH AGENCY FACILITATE PHYSICIAN FOLLOW UP APPOINTMENT IDENTIFY SOCIOECONOMIC CONCERNS AND MAKE APPROPRIATE REFERRAL NEEDED [code = RISK FOR HOSPITALIZATION; SKILLED NURSE TO INSTRUCT PATIENT/CAREGIVER ON RISK FOR HOSPITALIZATION, TEACH SIGNS AND SYMPTOMS THAT PUT PATIENT AT RISK, WHEN TO NOTIFY NURSE OF COMPLICATIONS/DECLINE, AND WHEN TO CALL 911. SKILLED NURSE TO INSTRUCT PATIENT/CAREGIVER ON: SIGNS AND SYMPTOMS TO BE ON ALERT FOR EARLY INTERVENTION, PRIOR TO NEEDING EMERGENCY SERVICES CALL [facility] NURSE TO KEEP VACUUM BOTTLE ASSEMBLER SYMPTOM REPORT FOR VISIBLE REFERENCE NOTIFY SKILLED NURSE/PHYSICIAN FOR DECLINE IN STATUS WHEN AND HOW TO CALL HOME HEALTH AGENCY FACILITATE PHYSICIAN FOLLOW UP APPOINTMENT IDENTIFY SOCIOECONOMIC CONCERNS AND MAKE APPROPRIATE REFERRAL NEEDED] Future Scheduled Test CARDIOVASC ULAR SYSTEM; SKILLED NURSE TO ASSESS AND TEACH RELATED TO ALTERED CARDIOVASCULAR STATUS TO MINIMIZE COMPLICATIONS AND REDUCE HOSPITALIZATION. [code = CARDIOVASCULAR SYSTEM; SKILLED NURSE TO ASSESS AND TEACH RELATED TO ALTERED CARDIOVASCULAR STATUS TO MINIMIZE COMPLICATIONS AND REDUCE HOSPITALIZATION.] Future Scheduled Test HYPERTENSI ON MANAGEMENT; SKILLED NURSE TO ASSESS/TEACH WARNING SIGNS AND SYMPTOMS TO AVOID HOSPITALIZATION. [code = HYPERTENSION MANAGEMENT; SKILLED NURSE TO ASSESS/TEACH WARNING SIGNS AND SYMPTOMS TO AVOID HOSPITALIZATION.] Future Scheduled Test TELEHEALTH PATHWAY - SN SN TO OBSERVE AND ASSESS PATIENT THROUGH USE OF TELEHEALTH (AUDIO ONLY OR AUDIO+VIDEO) TO IDENTIFY CHANGES IN CONDITION, PROVIDE OR REINFORCE TEACHING/TRAINING TO PATIENT AND/OR CAREGIVER ON DISEASE PROCESS AND MEDICATION REGIMEN, FOLLOW UP ON SELF CARE MANAGEMENT, AND PROVIDE APPROPRIATE INTERVENTION TO MINIMIZE COMPLICATIONS. TELEHEALTH VISIT FREQUENCY (X WK X FORMAT):0WK8, 1WK1 [code = TELEHEALTH PATHWAY - SN SN TO OBSERVE AND ASSESS PATIENT THROUGH USE OF TELEHEALTH (AUDIO ONLY OR AUDIO+VIDEO) TO IDENTIFY CHANGES IN CONDITION, PROVIDE OR REINFORCE TEACHING/TRAINING TO PATIENT AND/OR CAREGIVER ON DISEASE PROCESS AND MEDICATION REGIMEN, FOLLOW UP ON SELF CARE MANAGEMENT, AND PROVIDE APPROPRIATE INTERVENTION TO MINIMIZE COMPLICATIONS. TELEHEALTH VISIT FREQUENCY (X WK X FORMAT):0WK8, 1WK1 ] Goal 2022-11-01 Patient Goal - T O BE ABLE TO DO ALL THE THINGS I WANT Goal Provider Goal - PATIENT/CAREGIVER TO VERBALIZE, AND CONSISTENTLY DEMONSTRATE EFFECTIVE, SAFE MANAGEMENT OF MEDICATION INCLUDING KNOWLEDGE OF EFFECTIVENESS, POTENTIAL SIDE EFFECTS AND DRUG REACTIONS AND WHEN TO CONTACT THE APPROPRIATE CARE PROVIDER. PATIENT/CAREGIVER WILL BE ABLE TO VERBALIZE UNDERSTANDING OF MEDICATION REGIMEN AND ACCURATELY TAKE MEDICATIONS PRESCRIBED WITHOUT ADVERSE EFFECTS BY END OF EPISODE. Goal Provider Goal - PATIENT / CAREGIVER WILL VERBALIZE/DEMONSTRATE UNDERSTANDING OF MEASURES TO MANAGE ALTERED RESPIRATORY STATUS BY END OF EPISODE. Goal Provider Goal - PATIENT / CAREGIVER WILL VERBALIZE/DEMONSTRATE AN ABILITY TO ADHERE TO SELF-MANAGEMENT OF COPD TO MINIMIZE COMPLICATIONS AND AVOID HOSPITALIZATION BY END OF EPISODE. Goal Provider Goal - PATIENT/CAREGIVER ABLE TO IDENTIFY FALL RISK FACTORS AND IMPLEMENT STRATEGIES TO MINIMIZE FALL RISK. PATIENT/CAREGIVER WILL VERBALIZE/DEMONSTRATE AN ABILITY TO ADHERE TO FALL REDUCTION SELF MANAGEMENT AND LIFE-STYLE CHANGES AT DISCHARGE. PERSONAL GOAL(S) STATED BY PATIENT/CAREGIVER WILL BE MET BY END OF EPISODE. Goal Provider Goal - PATIENT / CAREGIVER WILL VERBALIZE/DEMONSTRATE UNDERSTANDING OF MEASURES TO MANAGE ALTERED GENITOURINARY STATUS BY END OF EPISODE. Goal Provider Goal - PATIENT/CAREGIVER WILL VERBALIZE/DEMONSTRATE UNDERSTANDING OF CARE AND MANAGEMENT OF URINARY INCONTINENCE BY 11/30/2022. Goal Provider Goal - PATIENT/CAREGIVER WILL VERBALIZE/DEMONSTRATE UNDERSTANDING OF CARE AND MANAGEMENT OF INTERMITTENT CATHETERIZATION BY END OF EPISODE. Goal Provider Goal - A PLAN OF CARE WILL BE ESTABLISHED THAT MEETS THE PATIENTS NEEDS. PATIENT WILL DEMONSTRATE OXYGEN SATURATION WITHIN NORMAL LIMITS OR PATIENTS OPTIMAL LEVEL ESTABLISHED BY THE PHYSICIAN THROUGHOUT CARE. CHANGES TO CO-MORBID CONDITIONS AND ANY NEW CONDITIONS WILL BE IDENTIFIED AND REPORTED TO THE PHYSICIAN. Goal Provider Goal - PATIENT / CAREGIVER WILL VERBALIZE / DEMONSTRATE UNDERSTANDING OF PAIN CONTROL MEASURES BY END OF EPISODE. Goal Provider Goal - PATIENT / CAREGIVER WILL VERBALIZE/DEMONSTRATE UNDERSTANDING OF PURPOSE OF VENIPUNCTURE AND LAB RESULTS WILL BE REPORTED TO PHYSICIAN WITH FOLLOW UP ORDERED BY END OF EPISODE. Goal Provider Goal - PATIENT WILL BE FREE FROM COPD EXACERBATION Goal Provider Goal - PATIENT/CAREGIVER WILL VERBALIZE UNDERSTANDING OF SIGNS AND SYMPTOMS THAT PUT THE PATIENT AT RISK FOR HOSPITALIZATION, WHEN TO NOTIFY SN OF COMPLICATIONS/DECLINE AND WHEN TO CALL 911. Goal Provider Goal - PATIENT / CAREGIVER WILL VERBALIZE/DEMONSTRATE UNDERSTANDING OF MEASURES TO MANAGE ALTERED CARDIOVASCULAR STATUS BY END OF EPISODE. Goal Provider Goal - PATIENT / CAREGIVER WILL VERBALIZE/DEMONSTRATE AN ABILITY TO ADHERE TO SELF-MANAGEMENT OF HTN TO MINIMIZE COMPLICATIONS AND AVOID HOSPITALIZATION BY END OF EPISODE. Goal Provider Goal - THE USE OF TELEHEALTH VISITS ALONG WITH IN PERSON VISITS WILL IMPROVE PATIENT SELF-MANAGEMENT AND ADHERENCE TO ORDERED TREATMENTS AND INTERVENTIONS. Reason for Visit INDEPENDENT IN THE COMMUNITY Encounters Start Date/Time End Date/Time Encounter Type Admission Type Attending [facility] Care Department Encounter ID Discharge Date Discharge Status Discharge Condition Discharge Reason Percent Goals Met 2022-10-02 00:00:00 2022-11-01 00:00:00 Outpatient NEW ADMISSION [facility] [id number] 2022-11-01 00:00:00 DISCHARGE TO HOME OR SELF CARE [facility]DEPENDEN T IN THE COMMUNITY ONLY - PER CLIENT REQUEST 100.00
--- OUTSIDE RECORDS SUMMARY | 2024-11-05 00:12 | XMS_ITS | Encounter Summary ---
Author Organization [facility] Address [address] [place] [address]. [place] [address] [place] [address] Care Team Providers Care Environmental Technical Officer Name Role Phone Unavailable Primary Care Provider Unavailabl e Encounter Details Date Type Department Care Team (Latest Contact Info) Description 12/30/2020 1:01 PM PROGRAM SCHEDULER - 12/30/2020 11:59 PM PROGRAM SCHEDULER Hospital Encounter [facility] [id number] [place] [address] Chevy Gallegos MD Discharge Disposition: Home or Self Care (Routine Discharge) Social History Tobacco Use Types Packs/Day Years Used Date Smoking Tobacco: Never Assessed Sex and Gender Information Value Date Recorded Sex Assigned at Not on file Legal Sex Male 11:02 AM PROGRAM SCHEDULER Gender Identity Not on file Sexual Orientation Not on file COVID-19 Exposure Response Date Recorded In the last month, have you been in contact with someone who was confirmed or suspected to have Coronavirus / COVID-19? No / Unsure 12/30/2020 1:00 PM PROGRAM SCHEDULER documented as of this encounter Plan of Treatment Not on file documented as of this encounter Visit Diagnoses Diagnosis Need for prophylactic vaccination against viral disease- Primary Need for prophylactic vaccination and inoculation against other viral diseases documented in this encounter
--- OUTSIDE RECORDS SUMMARY | 2024-11-05 00:12 | XMS_ITS | Encounter Summary ---
Author Organization [facility] Address [address] [place] [address]. [place] [address] Care Team Providers Care Meat Supervisor Name Role Phone Unavailable Primary Care Provider Unavailabl e Encounter Details Date Type Department Care Team (Latest Contact Info) Description 12/30/2020 Travel Social History Tobacco Use Types Packs/Day Years Used Date Smoking Tobacco: Never Assessed Sex and Gender Information Value Date Recorded Sex Assigned at Not on file Legal Sex Male 11:02 AM CRAFT MANAGER Gender Identity Not on file Sexual Orientation Not on file COVID-19 Exposure Response Date Recorded In the last month, have you been in contact with someone who was confirmed or suspected to have Coronavirus / COVID-19? No / Unsure 12/30/2020 1:00 PM CRAFT MANAGER documented as of this encounter Plan of Treatment Not on file documented as of this encounter Visit Diagnoses Not on filedocumented in this encounter
--- OUTSIDE RECORDS SUMMARY | 2024-11-05 00:12 | XMS_ITS | Encounter Summary ---
Author Organization [facility] Address [address] [place] [address]. [place] [address] [place] [address] Care Team Providers Care Timber Harvester Operator Name Role Phone Unavailable Primary Care Provider Unavailabl e Encounter Details Date Type Department Care Team (Latest Contact Info) Description 12/02/2020 2:55 PM PLUMBING AND HEATING CONTRACTOR - 12/02/2020 11:59 PM PLUMBING AND HEATING CONTRACTOR Hospital Encounter [facility] [id number] [place] [address] Warner Almazan MD Discharge Disposition: Home or Self Care (Routine Discharge) Social History Tobacco Use Types Packs/Day Years Used Date Smoking Tobacco: Never Assessed Sex and Gender Information Value Date Recorded Sex Assigned at Not on file Legal Sex Male 11:02 AM PLUMBING AND HEATING CONTRACTOR Gender Identity Not on file Sexual Orientation Not on file COVID-19 Exposure Response Date Recorded In the last month, have you been in contact with someone who was confirmed or suspected to have Coronavirus / COVID-19? No / Unsure 12/02/2020 2:56 PM PLUMBING AND HEATING CONTRACTOR documented as of this encounter Plan of Treatment Not on file documented as of this encounter Visit Diagnoses Diagnosis Need for prophylactic vaccination against viral disease- Primary Need for prophylactic vaccination and inoculation against other viral diseases documented in this encounter
--- OUTSIDE RECORDS SUMMARY | 2024-11-05 00:13 | XMS_ITS | Encounter Summary ---
Author Organization [employer] Address [address] [place] [address] Care Team Providers Care Desizing Machine Back Tender Name Role Phone Luis Fernando Vo MD Primary Care Provider +1- [phone] Encounter Details Date Type Department Care Team (Late st Contact Info) Description 11/06/1999 Outpatient Historical [facility] Maynor Vitale MD [address] [place] [address] Social History Tobacco Use Types Packs/Day Years Used Date Smoking Tobacco: Never Assessed Sex and Gender Information Value Date Recorded Sex Assigned at Not on file Gender Identity Not on file Sexual Orientation Not on file documented as of this encounter Plan of Treatment Not on file documented as of this encounter Visit Diagnoses Not on filedocumented in this encounter Care Teams Desizing Machine Back Tender Relationship Specialty Start Date End Date Luis Fernando Vo MD [address] [place] [address] PCP - General Interventional Cardiology 01/31/12 documented as of this encounter
--- OUTSIDE RECORDS SUMMARY | 2024-11-05 00:13 | XMS_ITS | Encounter Summary ---
Author Organization [employer] Address [address] [place] [address] Care Team Providers Care Scrub Woman Name Role Phone Luis Fernando Vo MD Primary Care Provider +1- [phone] Encounter Details Date Type Department Care Team (Late st Contact Info) Description 06/07/2000 Outpatient Historical [facility] Luis Fernando Vo MD [address] [place] [address] Social History Tobacco Use Types [...] on filedocumented in this encounter Care Teams Scrub Woman Relationship Specialty Start Date End Date Luis Fernando Vo MD [address] [place] [address] PCP - General Interventional Cardiology 01/31/12 documented as of this encounter
--- OUTSIDE RECORDS SUMMARY | 2024-11-05 00:13 | XMS_ITS | Encounter Summary ---
Author Organization [employer] Address [address] [place] [address] Care Team Providers Care Canal Lock Tender Chief Operator Name Role Phone Luis Fernando Vo MD Primary Care Provider +1- [phone] Encounter Details Date Type Department Care Team (Late st Contact Info) Description 05/15/1999 Outpatient Historical [facility] Luis Fernando Vo MD [address] [place] [address] Social History Tobacco Use Types [...] on filedocumented in this encounter Care Teams Canal Lock Tender Chief Operator Relationship Specialty Start Date End Date Luis Fernando Vo MD [address] [place] [address] PCP - General Interventional Cardiology 01/31/12 documented as of this encounter
--- OUTSIDE RECORDS SUMMARY | 2024-11-05 00:13 | XMS_ITS | Clinical Summary ---
Author Organization [facility] Address [address] [place] [address] Phone Care Team Providers Care Print Developer Automatic Name Role Phone Luis Fernando Vo MD Primary Care Provider +1- [phone] Allergies No known active allergies Medications Medication Sig Dispensed Refills Start Date End Date Status aspirin (KULWANT) 81 mg Oral Tab Take by mouth daily. Act kaitlin MULTIVITAMIN ORAL Take 1 Tab by mouth daily. Active OXYBUTYNIN CHLORIDE ORAL Take 5 mg by mouth daily. Active fexofenadine (JENNIFER) 60 mg Oral tablet Take 60 mg by mouth. Acti ve isosorbide dinitrate (ISORDIL) 10 mg Sublingual Subl Take 5 mg by mouth daily. Active fluticasone-salmeter ol (ADVAIR HFA) 230-21 mcg/actuation Inhalation HFAA Take 1 Puff by inhalation every 12 hours. Active omeprazole (PRILOSEC) 20 mg Oral CpDR Take 20 mg by mouth daily. Active amLODIPine (NORVASC) 10 mg Oral tablet Take 10 mg by mouth daily. Active montelukast (SINGULAIR) 10 mg Oral tablet Take 10 mg by mouth daily. Active terazosin (HYTRIN) 10 mg Oral capsule Take 10 mg by mouth daily at bedtime. Active simvastatin (ZOCOR) 20 mg Oral tablet Take 20 mg by mouth Daily LATE. Active hydrochlorothiazide 25 mg Oral tablet Take 25 mg by mouth daily. Active Active Problems No known active problems Social History Tobacco Use Types Packs/Day Years Used Date Smoking Tobacco: Former Cigarettes Q uit: 02/13/1997 Alcohol Use Standard Drinks/Week Comments Yes 5.8 (1 standard drink = 0.6 oz p ure alcohol) Sex and Gender Information Value Date Recorded Sex Assigned at Not on file Gender Identity Not on file Sexual Orientation Not on file Last Filed Vital Signs Vital Sign Reading Time Taken Comments Blood Pressure 119/56 02/21/2012 12:08 PM CDT Pulse 56 02/21/2012 12:08 PM CDT Temperature 36.4 ??C (97.6 ??F) 02/21/2012 11:56 AM C DT Respiratory Rate 16 02/21/2012 12:08 PM CDT Oxygen Saturation 95% 02/21/2012 12:08 PM CDT Inhaled Oxygen Concentration - - Weight 86.2 kg (190 lb) 02/21/2012 10:49 AM CDT Height 177.8 cm (5' 10 ) 02/21/2012 10:49 AM CDT Body Mass Index 27.26 02/21/2012 10:49 AM CDT Plan of Treatment Health Maintenance Due Date Last Done Comments DTAP/TDAP/TD VACCINES (1 - Tdap) 1954 ZOSTER VACCINE (1 of 2) 1985 PNEUMOCOCCAL VACCINE 65+ YEA RS (1 of 1 - PCV) 2000 RSV VACCINE (60+ or ) (1 - 1-dose 75+ series) 2010 COLORECTAL SCREENING 02/20/2017 02/21/2012, 02/21/2012, 11/24/2002 INFLUENZA VACCINE (#1) 2024 Procedures Procedure Name Priority Date/Time Associated Diagnosis Comments ENDOSCOPY, COLON, DIAGNOSTIC Routine 11/24/2002 from Last 3 Months or Most Recently Relevant to Health Maintenance Results * (ABNORMAL) ENDOSCOPY, COLON, DIAGNOSTIC (11/24/2002) Peewee Easton MD GI PROCEDURE [facility] from Last 3 Months or Most Recently Relevant to Health Maintenance Advance Directives For more information, please contact: [phone] * Full Code (Latest Code Status on File) Date Activated Date Inactivated Comments 02/21/2012 11:10 AM 02/22/2012 2:01 AM Care Teams Print Developer Automatic Relationship Specialty Start Date End Date Luis Fernando Vo MD [address] [facility] [address] [place] [address] PCP - General Interventional Cardiology 01/31/12
--- OUTSIDE RECORDS SUMMARY | 2024-11-05 00:13 | XMS_ITS | Encounter Summary ---
Author Organization [email or web address] Address [address] [place] [address] Care Team Providers Care Chute Loader Name Role Phone Luis Fernando Vo MD Primary Care Provider +1- [phone] Encounter Details Date Type Department Care Team (Late st Contact Info) Description 04/15/2000 Outpatient Historical [facility] Luis Fernando Vo MD [address] [place] [address] Social History Tobacco Use Types [...] on filedocumented in this encounter Care Teams Chute Loader Relationship Specialty Start Date End Date Luis Fernando Vo MD [address] [place] [address] PCP - General Interventional Cardiology 01/31/12 documented as of this encounter
--- OUTSIDE RECORDS SUMMARY | 2024-11-05 00:13 | XMS_ITS | Encounter Summary ---
Author Organization [employer] Address [address] [place] [address] Care Team Providers Care Golf Club Head Former Name Role Phone Luis Fernando Vo MD Primary Care Provider +1- [phone] Encounter Details Date Type Department Care Team (Late st Contact Info) Description 01/01/2000 Outpatient Historical [facility] Luis Fernando Vo MD [address] [place] [address] Social History Tobacco Use Types [...] on filedocumented in this encounter Care Teams Golf Club Head Former Relationship Specialty Start Date End Date Luis Fernando Vo MD [address] [place] [address] PCP - General Interventional Cardiology 01/31/12 documented as of this encounter
--- OUTSIDE RECORDS SUMMARY | 2024-11-05 00:13 | XMS_ITS | Encounter Summary ---
Author Organization [employer] Address [address] [place] [address] Care Team Providers Care School Crossing Guard Supervisor Name Role Phone Luis Fernando Vo MD Primary Care Provider +1- [phone] Encounter Details Date Type Department Care Team (Late st Contact Info) Description 03/24/1999 Outpatient Historical [facility] Luis Fernando Vo MD [address] [place] [address] Social History Tobacco Use Types [...] on filedocumented in this encounter Care Teams School Crossing Guard Supervisor Relationship Specialty Start Date End Date Luis Fernando Vo MD [address] [place] [address] PCP - General Interventional Cardiology 01/31/12 documented as of this encounter
--- OUTSIDE RECORDS SUMMARY | 2024-11-05 00:13 | XMS_ITS | Encounter Summary ---
Author Organization [facility] Address [address] [place] [address] Care Team Providers Care Quantitative Software Engineer Name Role Phone Luis Fernando Vo MD Primary Care Provider +1- [phone] Reason for Visit * Reason Onset Date Comments Procedure 02/20/2012 Encounter Details Date Type Department Care Team (Late st Contact Info) Description 02/20/2012 [facility]phone [facility] GI Procedure [address] [place] [address] Jeremie Pete MD NO ADDRESS ON FILE Procedure Social History Tobacco Use Types Packs/Day Years Used Date Smoking Tobacco: Former Cigarettes Q uit: 02/13/1997 Alcohol Use Standard Drinks/Week Comments Yes 0.8 (1 standard drink = 0.6 oz p ure alcohol) Sex and Gender Information Value Date Recorded Sex Assigned at Not on file Gender Identity Not on file Sexual Orientation Not on file documented as of this encounter Miscellaneous Notes * Telephone Encounter - Keon Weinberg - 02/20/2012 2:20 PM CDT Patient cancelled colonoscopy. From: Tatiana Rascon Sent: Monday, February 20, 2012 1:50 PM To: Keon Weinberg Subject: RE: Cedric BooneJohn Hank Woops! Yes ??? he is at 9 years on a 10 year follow-up so Medicare won???t pay. He???ll wait and come next year. Thanks! From: Keon Weinberg Sent: Monday, February 20, 2012 1:44 PM To: Tatiana Rascon Subject: RE: Cedric Mckinney I will send him a page. Did he state why he was cancelling? Thank you and have a good day, -Keon- From: Tatiana Rascon Sent: Monday, February 20, 2012 1:37 PM To: Keon Weinberg Subject: Cedric Mckinney Just wanted you to know that this patient has canceled with Dr. Robsion for tomorrow. Kandis asked him to be sure to call the office but it???s been a few hours and I haven???t seen anything so my guess is he isn???t calling. Wanted you guys to be aware. Do I call Ricki? Tatiana Rascon [facility] [phone] documented in this encounter Plan of Treatment Not on file documented as of this encounter Visit Diagnoses Not on filedocumented in this encounter Care Teams Quantitative Software Engineer Relationship Specialty Start Date End Date Luis Fernando Vo MD [address] [facility] [address] [place] [id number] PCP - General Interventional Cardiology 01/31/12 documented as of this encounter
--- OUTSIDE RECORDS SUMMARY | 2024-11-05 00:13 | XMS_ITS | Encounter Summary ---
Author Organization [employer] Address [address] [place] [address] Care Team Providers Care Culinary Artist Name Role Phone Luis Fernando Vo MD Primary Care Provider +1- [phone] Encounter Details Date Type Department Care Team (Late st Contact Info) Description 06/23/1999 Outpatient Historical [facility] Maynor Vitale MD [address] [place] [address] Social History Tobacco Use Types [...] on filedocumented in this encounter Care Teams Culinary Artist Relationship Specialty Start Date End Date Luis Fernando Vo MD [address] [place] [address] PCP - General Interventional Cardiology 01/31/12 documented as of this encounter
--- OUTSIDE RECORDS SUMMARY | 2024-11-05 00:13 | XMS_ITS | Encounter Summary ---
Author Organization [employer] Address [address] [place] [address] Care Team Providers Care Grocery Clerk Stocking Name Role Phone Luis Fernando Vo MD Primary Care Provider +1- [phone] Encounter Details Date Type Department Care Team (Late st Contact Info) Description 08/20/2000 Outpatient Historical [facility] Maynor Vitale MD [address] [place] [address] Social History Tobacco Use Types [...] on filedocumented in this encounter Care Teams Grocery Clerk Stocking Relationship Specialty Start Date End Date Luis Fernando Vo MD [address] [place] [address] PCP - General Interventional Cardiology 01/31/12 documented as of this encounter
--- OUTSIDE RECORDS SUMMARY | 2024-11-05 00:13 | XMS_ITS | Encounter Summary ---
Author Organization [employer] Address [address] [place] [address] Care Team Providers Care College Professor Name Role Phone Luis Fernando Vo MD Primary Care Provider +1- [phone] Encounter Details Date Type Department Care Team (Late st Contact Info) Description 05/29/1999 Outpatient Historical [facility] Luis Fernando Vo MD [address] [place] [address] Social History Tobacco Use Types [...] on filedocumented in this encounter Care Teams College Professor Relationship Specialty Start Date End Date Luis Fernando Vo MD [address] [place] [address] PCP - General Interventional Cardiology 01/31/12 documented as of this encounter
--- OUTSIDE RECORDS SUMMARY | 2024-11-05 00:13 | XMS_ITS | Encounter Summary ---
Author Organization [facility] Address [address] [place] [address] Care Team Providers Care Director Of Sustainability Programs Name Role Phone Luis Fernando Vo MD Primary Care Provider +1- [phone] Reason for Referral * Eval and Treat (Routine) - Closed Specialty Diagnoses / Procedures Referred By Contamy t Referred To Contact Gastroenterology Diagnoses Personal history of colonic polyps Procedures colonscopy Jeremie Pete MD NO ADDRESS ON FILE Jeremie Pete MD NO ADDRESS ON FILE Referral ID Status Reason Start Date Expiration Date Visits Requested Visits Authorized [id number] Closed Performing Department To Schedule (STL) 01/31/2012 01/31/2013 1 1 Reason for Visit * Reason Onset Date Comments Procedure 01/31/2012 colon Encounter Details Date Type Department Care Team (Late st Contact Info) Description 01/31/2012 Telephone [facility] Gastroenterology [place] [id number] [address] Jeremie Pete MD NO ADDRESS ON FILE Procedure (colon) Social History Tobacco Use Types Packs/Day Years Used Date Smoking Tobacco: Never Assessed Sex and Gender Information Value Date Recorded Sex Assigned at Not on file Gender Identity Not on file Sexual Orientation Not on file documented as of this encounter Miscellaneous Notes * Telephone Encounter - Nunu Luna - 01/31/2012 10:12 AM CDT Cedric Mckinney is a 76 y.o. male 1935 Procedure: colonoscopy Hx polyps Provider: dashawn Date and Time: 4-19-12 7:00 Location: [facility] Prep Given: Mlx-emailed Referring Provider: Luis Fernando Vo MD (enter Referring only if different from PCP) PCP: Luis Fernando Vo MDP Have you been seen by any of our Physicians? yes; Previous Endoscopy: yes, date: colon 2002, egd 2007 Do you have sleep apnea? no Ever had Rheumatic fever or endocarditis? no Do you have COPD? no Are you on Oxygen at home? no Have you been diagnosed with Esphageal Varicies? no Are you on Kidney Dialysis? no Have you ever had a staph infection called MRSA or VRE? no Do you have a history of any heart surgeries or current heart conditions? no Have you been diagnosed with CHF (Congestive Heart Failure) or CAD Coronary Artery Disease? no Do you have a pacemaker/Defib, HVR, Stent or Bypass? (AICD) no Cornonary artery disease/stents.KS < 6 months ago? no Have you had a Joint Replacement? yes Do you have unstable Angina? no History of a stroke? no Seizure disorder? no Patients of Anticoagulants (Blood Thinners) no History of Coagulopathy (Blood Thinners) no Patients no PEG Placements no Patients with a history of Anesthesia???s difficulties or Endoscopic issues (bleeding etc) - hx of difficult airway or malignant hypothermia no History of Cirrhosis? no Sickle Cell Disease (not just trait)? no Patients BMI (36 and above need review, NO patients with BMI >50 or <16 Weight: 210 Height: 5-10 BMI: 30.1 History Substance Use Topics ??? Smoking status: Not on file ??? Smokeless tobacco: Not on file ??? Alcohol Use: Not on file No Known Allergies Held Medications: none Current Outpatient Prescriptions Medication Sig Dispense Refill ??? aspirin (KULWANT) 81 mg Oral Tab Take by mouth. ??? MULTIVITAMIN ORAL Take by mouth. ??? TERAZOSIN HCL (TERAZOSIN ORAL) Take by mouth. ??? isosorbide-hydrALAZINE (BIDIL) 20-37.5 mg Oral Tab Take by mouth 3 times daily. ??? OXYBUTYNIN CHLORIDE ORAL Take by mouth. ??? FINASTERIDE ORAL Take by mouth. ??? AMLODIPINE BESYLATE (NORVASC ORAL) Take by mouth. documented in this encounter Plan of Treatment Scheduled Referrals Name Type Priority Associated Diagnoses Order Schedule AMB REFERRAL TO GASTROENTEROLOGY Outpatient Referral Routine Personal history of colonic polyps Ordered: 01/31/2012 documented as of this encounter Visit Diagnoses Diagnosis Personal history of colonic polyps- Primary documented in this encounter Care Teams Director Of Sustainability Programs Relationship Specialty Start Date End Date Luis Fernando Vo MD [address] [facility] [address] [place] [address] PCP - General Interventional Cardiology 01/31/12 documented as of this encounter
--- OUTSIDE RECORDS SUMMARY | 2024-11-05 00:13 | XMS_ITS | Encounter Summary ---
Author Organization [employer] Address [address] [place] [address] Care Team Providers Care Welder Production Line Gas Name Role Phone Luis Fernando Vo MD Primary Care Provider +1- [phone] Encounter Details Date Type Department Care Team (Late st Contact Info) Description 02/06/1999 Outpatient Historical [facility] Luis Fernando Vo MD [address] [place] [address] Social History Tobacco Use Types [...] on filedocumented in this encounter Care Teams Welder Production Line Gas Relationship Specialty Start Date End Date Luis Fernando Vo MD [address] [place] [address] PCP - General Interventional Cardiology 01/31/12 documented as of this encounter
--- OUTSIDE RECORDS SUMMARY | 2024-11-05 00:13 | XMS_ITS | Encounter Summary ---
Author Organization [facility] Address [address] [place] [address] Care Team Providers Care Salesperson Florist Supplies Name Role Phone Luis Fernando Vo MD Primary Care Provider +1- [phone] Encounter Details Date Type Department Care Team (Latest Contact Info) Description 02/21/2012 10:08 AM CDT - 02/21/2012 11:35 PM CDT Hospital Encounter [address] [place] [id number] Peewee Easton MD NO ADDRESS ON FILE Discharge Disposition: Home or Self Care Social [...] Mass Index 27.26 02/21/2012 10:49 AM CDT documented in this encounter Discharge Instructions * Discharge Instructions* Peewee Easton MD - 02/21/2012 12:08 PM CDT Instructions after Colonoscopy After a colonoscopy it is normal to experience some minor ???gas pains?? because of the air that was introduced to your colon during the procedure. Tylenol will help to relieve any discomfort. You may not have a bowel movement for 1-3 days because of the colonoscopy prep. This is normal. DO NOT drink alcohol until tomorrow. DO NOT drive, operate machinery, make critical decisions until tomorrow. Limit activities that require coordination or balance for 24 hours. Resume your previous diet unless otherwise instructed. Resume your previous medications unless otherwise instructed. Notify your physician if you develop any of the following: Severe pain Fever of 101 degrees F Large amount of bleeding, passing large blood clots, or black tarry stools Redness or soreness at the IV site Office Phone: [facility] [phone] [facility]???s [phone] After Hours Exchange: * Attachments The following attachments cannot be sent through Care Everywhere. * HEMORRHOIDS: AFTER YOUR VISIT (MALDIVIAN) * DIVERTICULOSIS: AFTER YOUR VISIT (MALDIVIAN) * HIGH-FIBER DIET: AFTER YOUR VISIT (MALDIVIAN) documented in this encounter Medications at Time of Discharge Medication Sig Dispensed Refills Start Date End Date fexofenadine (JENNIFER) 60 mg Oral tablet Take 60 mg by mouth. isosorbide dinitrate (ISORDIL) 10 mg Sublingual Subl Take 5 mg by mouth daily. fluticasone-salmeterol (ADVAIR HFA) 230-21 mcg/actuation Inhalation HFAA Take 1 Puff by inhalation every 12 hours. omeprazole (PRILOSEC) 20 mg Oral CpDR Take 20 mg by mouth daily. amLODIPine (NORVASC) 10 mg Oral tablet Take 10 mg by mouth daily. montelukast (SINGULAIR) 10 mg Oral tablet Take 10 mg by mouth daily. terazosin (HYTRIN) 10 mg Oral capsule Take 10 mg by mouth daily at bedtime. simvastatin (ZOCOR) 20 mg Oral tablet Take 20 mg by mouth Daily LATE. hydrochlorothiazide 25 mg Oral tablet Take 25 mg by mouth daily. aspirin (KULWANT) 81 mg Oral Tab Take by mouth daily. MULTIVITAMIN ORAL Take 1 Tab by mouth daily. OXYBUTYNIN CHLORIDE ORAL Take 5 mg by mouth daily. documented as of this encounter H&P Notes * Peewee Easton MD - 02/21/2012 11:26 AM CDT GI H&P PRE PROCEDURE EVALUATION - Colonoscopy DATE: 02/21/2012 HPI: This is a 76 y.o. male patient presents to endoscopy for Colonoscopy for previous adenomatous polyp. There are no active problems to display for this patient. Past Medical History Diagnosis Date ??? HTN (hypertension) ??? Cancer prostate ca with seed implants ??? Hyperlipidemia ??? Asthma no rescue inhaler sees dr. easley ??? Back pain ??? Personal history of colonic polyps last colonoscopy 9 yrs ago Past Surgical History Procedure Date ??? Hx hip replacement 12 yrs ago lt ??? Hx back surgery Prescriptions prior to admission Medication Sig Dispense Refill ??? fexofenadine (JENNIFER) 60 mg Oral tablet Take 60 mg by mouth. ??? isosorbide dinitrate (ISORDIL) 10 mg Sublingual Subl Take 5 mg by mouth daily. ??? fluticasone-salmeterol (ADVAIR HFA) 230-21 mcg/actuation Inhalation HFAA Take 1 Puff by inhalation every 12 hours. ??? omeprazole (PRILOSEC) 20 mg Oral CpDR Take 20 mg by mouth daily. ??? amLODIPine (NORVASC) 10 mg Oral tablet Take 10 mg by mouth daily. ??? montelukast (SINGULAIR) 10 mg Oral tablet Take 10 mg by mouth daily. ??? terazosin (HYTRIN) 10 mg Oral capsule Take 10 mg by mouth daily at bedtime. ??? simvastatin (ZOCOR) 20 mg Oral tablet Take 20 mg by mouth Daily LATE. ??? hydrochlorothiazide 25 mg Oral tablet Take 25 mg by mouth daily. ??? aspirin (KULWANT) 81 mg Oral Tab Take by mouth daily. ??? MULTIVITAMIN ORAL Take 1 Tab by mouth daily. ??? OXYBUTYNIN CHLORIDE ORAL Take 5 mg by mouth daily. No Known Allergies History Substance Use Topics ??? Smoking status: Former Smoker Quit date: 02/13/1997 ??? Smokeless tobacco: Not on file ??? Alcohol Use: 3.5 oz/week 7 Glasses of wine per week No family history on file. Anicteric OM/OP - unremarkable Neck - without LAD, no thyromegally Chest - CTA bilaterally C/V - RRR without murmur, gallop, or rub Abdomen - Soft, non-tender, non-distended, normal active bowel sounds, no organomegally, no fullness or mass, no rebound, no guarding. Ext - No clubbing, cyanosis, or edema. Neuro- Alert and oriented x 3, motor exam grossly intact. ASA Classification: Per anesthesia Informed Consent: The patient was informed of the indications for the procedure, the risks/benefits and the alternatives, and agreed to proceed. In particular, the patient was informed of the risk of perforation/(1:1000), medication side effect, infection, a missed lesion, or incomplete examination. In the case of dilatation, the patient was informed of the risk of perforation (1 to 5%). There was nothing onhistory or physical examination precluding the procedure. IMPRESSION & PLAN: Indications for procedure as noted in HPI. Will proceed with the above mentioned procedure(s) as scheduled. Peewee Easton MD documented in this encounter OR Notes * OR Anesthesia - Stl Raf, [facility] - 02/21/2012 4:33 PM CDT * OR Anesthesia - Ryley Carpio MD - 02/21/2012 11:56 AM CDT Phase II Postanesthesia Evaluation Including [facility] Modified Simone Score Patient seen and evaluated: RESPIRATORY FUNCTION: Respiration: able to breath and cough freely (02/21/12 1102) [2=able to breathe and cough freely, 1=dyspnea, limited breathing or tachypnea, 0=apnea or mechanicventilator] O2 Saturation: able to maintain O2 saturation greater than 92% on room air (02/21/12 1102) [2=able to maintain O2 saturation greater than 92% on room air, 1=needs O2 inhalation to maintain O2 saturation greater than 90%, 0=O2 saturation less than 90% even with O2 supplement] Resp: 18 (02/21/121048)SpO2: 95 % (02/21/121048) CARDIOVASCULAR FUNCTION: BP: 129/71 mmHg (02/21/121048) Circulation: BP within 20% of preanesthetic level (02/21/121101) [2=BP within 20% of preanesthetic level, 1=BP within 20-49% of preanesthetic level, 0=BP within 50%of preanesthetic level] MENTAL STATUS, NEURO, ACTIVITY: Consciousness: fully awake (02/21/121101) [2=fully awake, 1=arousable on calling, 0=not responding] Activity: able to move 4 extremities voluntarily or on command (02/21/121101) [2=able to move 4 extremities voluntarily or on command, 1=able to move 2 extremities voluntarily or on command, 0=unable to move extremities voluntarily or on command] Ambulation: able to stand up and walk straight, on ordered bedrest, or performing at patient's prior level of function (02/21/121101) [2=able to stand up and walk straight, on ordered bedrest, or performing at patient's prior level of function, 1=vertigo when erect, 0=dizziness when supine] TEMPERATURE: Temp: 97.7 ??F (36.5 ??C) (02/21/121048) PAIN: Presence of Pain: denies pain/discomfort (02/21/121048) Pain: pain free (02/21/121101) [2=pain free, 1=pain handled by oral medication, 0=pain requiring parenteral medication] NAUSEA AND VOMITING: Fasting/Feeding: able to drink fluids, ice chips or NPO (02/21/121101) [2=able to drink fluids, ice chips or NPO, 1=nauseated, 0=nausea and vomiting] POSTOPERATIVE HYDRATION: No intake or output data in the 24 hours ending 02/21/12 1156 Urine Output: has voided, adequate urine output per device, or not applicable (02/21/121101) [2=has voided, adequate urine output per device, or not applicable, 1=unable to void but comfortable, 0=unable to void and uncomfortable] WOUND: Dressing: dry and clean or not applicable (02/21/12 110) [2=dry and clean or not aplicable, 1=wet, marked and not increasing, 0=growing area of wetness] [facility] Modified Simone Score: Score: 20 (02/21/12 110) COMMENTS: No apparent Anesthesia related complications Ryley Carpio MD 02/21/2012 11:56 AM * OR Anesthesia - Ryley Carpio MD - 02/21/2012 11:19 AM CDT GI Lab Pre-Anesthesia Evaluation - Long Form 02/21/2012 11:19 AM Name: Cedric Mckinney Age: 76 y.o. Sex: male CSN: [id number] Procedure: Procedure(s): COLONOSCOPY Surgeons/Assistants: Surgeon(s) and Role: * Peewee Easton MD - Primary No Known Allergies Prescriptions prior to admission Medication Sig Dispense Refill ??? aspirin (KULWANT) 81 mg Oral Tab Take by mouth. ??? MULTIVITAMIN ORAL Take by mouth. ??? TERAZOSIN HCL (TERAZOSIN ORAL) Take by mouth. ??? OXYBUTYNIN CHLORIDE ORAL Take by mouth. ??? FINASTERIDE ORAL Take by mouth. Current Facility-Administered Medications Medication Dose Route Frequency Provider Last Rate Last Dose ??? lactated ringers solution IV Pre-Proc Continuous Peewee Easton MD 125 mL/hr at 02/21/12 1115 There are no active problems to display for this patient. Past Medical History Diagnosis Date ??? HTN (hypertension) ??? Cancer prostate ca with seed implants ??? Hyperlipidemia ??? Asthma no rescue inhaler sees dr. easley ??? Back pain ??? Personal history of colonic polyps last colonoscopy 9 yrs ago Past Surgical History Procedure Date ??? Hx hip replacement 12 yrs ago lt ??? Hx back surgery History Substance Use Topics ??? Smoking status: Former Smoker Quit date: 02/13/1997 ??? Smokeless tobacco: Not on file ??? Alcohol Use: 3.5 oz/week 7 Glasses of wine per week No family history on file. Previous Anesthesia Problems/Concerns: No anesthesia problems/complications Review of Systems Cardiovascular: negative hx htn asthma No cp angina, no known ASCAD, good et Respiratory: negative Gastroenterology: negative Bowel Prep:Yes PHYSICAL EXAM BP 129/71 Pulse 73 Temp(Src) 97.7 ??F (36.5 ??C) (Tympanic) Resp 18 Ht 5' 10 (1.778 m) Wt 190 lb (86.183 kg) BMI 27.26 kg/m2 SpO2 95% Weight: Weight: 190 lb (86.183 kg) (02/21/12 1049) Height: Ht Readings from Last 1 Encounters: 02/21/12 5' 10 (1.778 m) BMI: Body mass index is 27.26 kg/(m^2). Airway: normal range of motion: Airway Class: II (soft palate, uvula, fauces visible); None Lungs: clear to auscultation bilaterally, normal respiratory effort Heart: regular rate and rhythm, S1, S2 normal, no murmur, click, rub or gallop Neuro: alert, oriented x 3, no defects noted in general exam. Vascular Access: Peripheral Line LABS No results found for this basename: WBC, MANUALWBC, HGB, HGBPOC, HCT, HCTPOC, PLT, MCV No results found for this basename: NA, K, CL, CO2, CA, BUN, CREAT, GLUCOSE, ANIONGAP, BCRATIO No results found for this basename: INR, PT, PROTIMEPOC No results found for this basename: HCGURPOC, HCGQUALUR, HCGQUAL, HCGQUANT, HCGINTACT No results found for this basename: glucpoc EKG: EKG not indicated today Other Studies/Considerations: None Postprocedure pain management discussed yes Smoking/Tobacco Counseling: None Recommendations: None ASA Physical Status: ASA 2 - Patient with mild systemic disease with no functional limitations I have seen and examined this patient and confirm that all data is current and accurate. Yes Choice of Anesthesia/Anesthesia Plan: Proceed, General and Routine Monitoring I have discussed the anesthetic options and the risks/benefits with the patient/family. Questions have been solicited and answered. Yes Ryley Carpio MD documented in this encounter Miscellaneous Notes * Scanned Form - Stl Scanning, [facility] - 03/07/2012 8:44 PM CDT Electronically signed by Interface, [facility] Stl Dope Maintenance Worker Incoming at 03/07/2012 8:44 PM CDT * Scanned Form - Stl Scanning, [facility] - 02/21/2012 4:33 PM CDT Electronically signed by Interface, [facility] Stl Dope Maintenance Worker Incoming at 02/21/2012 4:33 PM CDT * Patient Instructions - Stl Scanning, [facility] - 02/21/2012 4:33 PM CDT Electronically signed by Interface, [facility] Stl Dope Maintenance Worker Incoming at 02/21/2012 4:33 PM CDT documented in this encounter Plan of Treatment Not on file documented as of this encounter Procedures Procedure Name Priority Date/Time Associated Diagnosis Comments COLONOSCOPY 02/21/2012 7:00 PM CDT COLON/SCREENING, HX POLYPS documented in this encounter Visit Diagnoses Not on filedocumented in this encounter Administered Medications Inactive Administered Medications - up to 3 most recent administrations Medication Order MAR Action Action Date Dose Rate Site lactated ringers solution IV, at 125 mL/hr, PRE-PROCEDURE CONTINUOUS, Starting on Scarlett 02/21/12 at 1115, Until 02/22/12 at 0201, Routine New Bag 02/21/2012 11:15 AM CDT 125 mL/hr documented in this encounter Active and Recently Administered Medications Times are shown in CDT. Continuous Medication Order 02/19/2012 02/20/2012 02/21/2012 lactated ringers solution (CANCELED) IV, at 125 mL/hr, PRE-PROCEDURE CONTINUOUS, Starting on Scarlett 02/21/12 at 1115, Until 02/22/12 at 0201, Routine 1115 (New Bag - Prov ider: Stephany Mccann RN)1213 (Canceled Entry - Provider: Mita Ramírez RN)1214 (Stopped - Provider: Katharina Jacques RN) documented in this encounter Care Teams Salesperson Florist Supplies Relationship Specialty Start Date End Date Luis Fernando Vo MD [address] [place] [address] PCP - General Interventional Cardiology 01/31/12 documented as of this encounter
--- OUTSIDE RECORDS SUMMARY | 2024-11-05 00:13 | XMS_ITS | Encounter Summary ---
Author Organization [facility] Address [address] [place] [address] Care Team Providers Care Media Consultant Name Role Phone Luis Fernando Vo MD Primary Care Provider +1- [phone] Encounter Details Date Type Department Care Team (Late st Contact Info) Description 01/06/2001 Outpatient Historical [facility] Maynor Vitale MD [address] [place] [address] Social History Tobacco Use Types [...] on filedocumented in this encounter Care Teams Media Consultant Relationship Specialty Start Date End Date Luis Fernando Vo MD [address] [place] [address] PCP - General Interventional Cardiology 01/31/12 documented as of this encounter
--- OUTSIDE RECORDS SUMMARY | 2024-11-05 00:13 | XMS_ITS | Encounter Summary ---
Author Organization [employer] Address [address] [place] [address] Care Team Providers Care Operator Cavity Pump Name Role Phone Luis Fernando Vo MD Primary Care Provider +1- [phone] Encounter Details Date Type Department Care Team (Late st Contact Info) Description 02/16/1999 Outpatient Historical [facility] Maynor Vitale MD [address] [place] [address] Social History Tobacco Use Types [...] on filedocumented in this encounter Care Teams Operator Cavity Pump Relationship Specialty Start Date End Date Luis Fernando Vo MD [address] [place] [address] PCP - General Interventional Cardiology 01/31/12 documented as of this encounter
--- OUTSIDE RECORDS SUMMARY | 2024-11-05 00:13 | XMS_ITS | Encounter Summary ---
Author Organization [employer] Address [address] [place] [address] Care Team Providers Care Chemic Mangler Name Role Phone Luis Fernando Vo MD Primary Care Provider +1- [phone] Encounter Details Date Type Department Care Team (Late st Contact Info) Description 09/02/2000 Outpatient Historical [facility] Maynor Vitale MD [address] [place] [address] [place] [address] Social History Tobacco Use Types [...] on filedocumented in this encounter Care Teams Chemic Mangler Relationship Specialty Start Date End Date Luis Fernando Vo MD [address] [place] [address] PCP - General Interventional Cardiology 01/31/12 documented as of this encounter
--- OUTSIDE RECORDS SUMMARY | 2024-11-05 00:13 | XMS_ITS | Continuity of Care Document ---
Author Organization [facility] Address [address] [place] [address] [place] [address] Phone Care Team Providers Care Air Drier Name Role Phone Anita Sotelo Unavailable Unavailable [...] Diagnoses Date Provider Providers Copied on Encounter [facility], [address] [place] [address] [address], [place], [place], [id number], tel:[phone] [facility] No Information 4-201 0 Ashleigh Hamilton [address] , [address], [place], [place], [facility], [place]. tel:[phone] Office/outpat ient Visit, Est [facility], [address] [place] [address] [address], [place], [place], [id number], tel:[phone] [facility] No Information 8-200 9 Ashleigh Hamilton [address] , [address], [place], [address], [place]. tel:[phone] [facility], [id number] [place] [address] [address], [place], [place], [id number], tel:[phone] [facility] No Information Mar-0 7-200 8 Ashleigh Howard. [address], [place], [place], [facility], . tel:[phone] Office/outpat ient Visit, Est [facility] Eye [facility], [address] [place] [address] [address], [place], [place], [id number], [place] tel:[phone] [facility] No Information Sep-0 4-200 7 Hare OD Bhanu. [address] , [address], [place], [place], [facility], . tel:[phone] [facility], [address] [place] [address] [address], [place], [place], [id number], tel:[phone] [facility] No Information Feb-1 6-200 7 Ashleigh Howard. [address] , [address], [place], [place], [facility], . tel:[phone] Referring Provider: Anita Mishra [address] [place], [place] [address], [place], [place], [facility]. tel:[phone] Family History Family Member Type Diagnosis Age At Onset No Information Payers Payer name Insurance type Covered republican ID Authoriza tion(s) Medicare [facility] [id number] [place] [id number] Social History Type Description Quantity Date Captured [...]
--- OUTSIDE RECORDS SUMMARY | 2024-11-05 00:13 | XMS_ITS | Encounter Summary ---
Author Organization [facility] Address [address] [place] [address] Care Team Providers Care Supervisor Abattoir Name Role Phone Luis Fernando Vo MD Primary Care Provider +1- [phone] Encounter Details Date Type Department Care Team (Late st Contact Info) Description 02/14/2012 Orders Only [facility] [place] [id number] [address] Peewee Easton MD NO ADDRESS ON FILE Social History Tobacco Use Types Packs/Day Years [...] Procedure Name Priority Date/Time Associated Diagnosis Comments PATHOLOGY Routine 11/24/2002 ENDOSCOPY, COLON, DIAGNOSTIC Routine 11/24/2002 documented in this encounter Results * (ABNORMAL) ENDOSCOPY, COLON, DIAGNOSTIC (11/24/2002) Peewee Easton MD GI [facility]ED[facility] * (ABNORMAL) PATHOLOGY (11/24/2002) Specimen of unknown material (specimen) Peewee Easton MD PATHOLOGY/CYTOLOGY O RDERABLES [facility] documented in this encounter Visit Diagnoses Not on filedocumented in this encounter Care Teams Supervisor Abattoir Relationship Specialty Start Date End Date Luis Fernando Vo MD [address] [place] [address] PCP - General Interventional Cardiology 01/31/12 documented as of this encounter
--- OUTSIDE RECORDS SUMMARY | 2024-11-05 00:13 | XMS_ITS | Encounter Summary ---
Author Organization [employer] Address [address] [place] [address] Care Team Providers Care Refractive Surgeon Name Role Phone Luis Fernando Vo MD Primary Care Provider +1- [phone] Encounter Details Date Type Department Care Team (Late st Contact Info) Description 09/13/2000 Outpatient Historical [facility] Luis Fernando Vo MD [address] [place] [address] Social History Tobacco Use Types [...] on filedocumented in this encounter Care Teams Refractive Surgeon Relationship Specialty Start Date End Date Luis Fernando Vo MD [address] [place] [address] PCP - General Interventional Cardiology 01/31/12 documented as of this encounter
--- OUTSIDE RECORDS SUMMARY | 2024-11-05 00:13 | XMS_ITS | Encounter Summary ---
Author Organization [employer] Address [address] [place] [address] Care Team Providers Care Electrode Cleaner Name Role Phone Luis Fernando oV MD Primary Care Provider +1- [phone] Encounter Details Date Type Department Care Team (Late st Contact Info) Description 08/09/1999 Outpatient Historical [facility] Maynor Vitale MD [address] [place] [address] Social History Tobacco Use Types [...] on filedocumented in this encounter Care Teams Electrode Cleaner Relationship Specialty Start Date End Date Luis Fernando Vo MD [address] [place] [address] PCP - General Interventional Cardiology 01/31/12 documented as of this encounter
--- OUTSIDE RECORDS SUMMARY | 2024-11-05 00:13 | XMS_ITS | Encounter Summary ---
Author Organization [employer] [facility] Address [address] [place] [address] Care Team Providers Care Puncher And Fastener Name Role Phone Luis Fernando Vo MD Primary Care Provider +1- [phone] Encounter Details Date Type Department Care Team (Late st Contact Info) Description 01/06/2001 Outpatient Historical [facility] Luis Fernando Vo MD [address] [place] [address] Social History Tobacco Use Types [...] on filedocumented in this encounter Care Teams Puncher And Fastener Relationship Specialty Start Date End Date Luis Fernando Vo MD [address] [place] [address] PCP - General Interventional Cardiology 01/31/12 documented as of this encounter
--- OUTSIDE RECORDS SUMMARY | 2024-11-05 00:13 | XMS_ITS | Clinical Summary ---
Author Organization Unknown Care Team Providers Care Sheet Manager Name Role Phone MIKE DASILVA Unavailable Jen onur GALLARDO RN, HELENA Unavailable Unavailable Payers Payer Name Policy Type Policy Number Effective Date Expira tion Date MEDICARE.[facility] [id number] Problems Condition Name Condition Details Condition Category Status Onset Date Resolution Date Last Treatment Date Treating Clinician Comments HYPERTENSIVE HEART DISEASE WITH HEART FAILURE Active 2021-11 00:00: 00 ACUTE ON CHRONIC SYSTOLIC (CONGESTIVE) HEART FAILURE Active 2021-11 00:00: 00 ISCHEMIC CARDIOMYOPAT HY Active 11-04 00:00: 00 CHRONIC OBSTRUCTIVE PULMONARY DISEASE W (ACUTE) EXACERBATION Active 2021-11 00:00: 00 ATHSCL HEART DISEASE OF [place] CORONARY ARTERY W/O ANG PCTRS Active 11-04 [...] CARDIAC DEFIBRILLATO R Active 2021-11 00:00: 00 SENIOR LIVING (CURRENT) USE OF ASPIRIN Active 2021-11 00:00: 00 SENIOR LIVING (CURRENT) USE OF INHALED STEROIDS Active 2021-11 00:00: 00 SENIOR LIVING (CURRENT) USE OF NON-STEROIDA L NON-INFLAM (NSAID) Active 2021-11 00:00: 00 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 Active 2021-11 [...] mg-51 mg tablet 2021-11 00:00: 00 Yes [id number] HEART FAILURE 1 tablet 2 TIMES DAILY 1 tablet 2 TIMES DAILY (route: oral) Med Classific ation: Cardiovas cular Therapy Agents furosemide 40 mg tablet 2021-11 00:00: 00 Yes [id number] SWELLING 1 tablet DAILY 1 tablet DAILY (route: oral) Med Classific ation: Cardiovas cular Therapy Agents metoprolol tartrate 50 mg tablet 2021-11 00:00: 00 Yes [id number] HIGH BLOOD PRESSURE 1 tablet 2 TIMES DAILY 1 tablet 2 TIMES DAILY (route: oral) Med Classific ation: Cardiovas cular Therapy Agents potassium chloride ER 10 mEq tablet,exte nded release 2021-11 00:00: 00 Yes [id number] SUPPLEMENT 2 tablet DAILY 2 tablet DAILY (route: oral) Med Classific ation: Electroly te Balance-N utritiona l Products prednisone 10 mg tablet 2021-11 00:00: 00 10-05 23:59 :00 No [id number] STEROID Per instruc tions DAILY Per instructio ns DAILY (route: oral) Med Classific ation: Endocrine cephalexin 250 mg capsule 2021-11 00:00: 00 Yes [id number] PROPHYLACTI C 1 capsule BEDTIME 1 capsule BEDTIME (route: oral) Med Classific ation: Anti-Infe ctive Agents Advair Diskus 250 mcg-50 mcg/dose powder for inhalation 2021-11 00:00: 00 10-02 00:00 :00 No [id number] Per instruc tions TWICE A DAY Per instructio ns TWICE A DAY (route: inhalation ) Med Classific ation: Respirato ry Therapy Agents albuterol sulfate HFA 90 mcg/actuati on aerosol inhaler 2021-11 00:00: 00 Yes [id number] SHORTNESS OF BREATH, WHEEZING 2 puff EVERY 4 HOURS 2 puff EVERY 4 HOURS (route: inhalation ) Med Classific ation: Respirato ry Therapy Agents rosuvastati n 20 mg tablet 2021-11 00:00: 00 Yes [id number] HIGH CHOLESTEROL 1 tablet BEDTIME 1 tablet BEDTIME (route: oral) Med Classific ation: Cardiovas cular Therapy Agents Advair Diskus 250 mcg-50 mcg/dose powder for inhalation 2021-11 00:00: 00 Yes [id number] CHRONIC OBSTRUCTIVE PULMONARY DISEASE 1 inhalat ion 2 TIMES DAILY 1 inhalation 2 TIMES DAILY (route: inhalation ) Med Classific ation: Respirato ry Therapy Agents allopurinol 100 mg tablet 2021-11 00:00: 00 Yes [id number] GOUT PREVENTION 1 tablet DAILY 1 tablet DAILY (route: oral) Med Classific ation: Gout and Hyperuric emia Therapy aspirin 81 mg tablet,jay yed release 2021-11 00:00: 00 Yes [id number] HEART HEALTH 1 tablet DAILY 1 tablet DAILY (route: oral) Med Classific ation: Hematolog ical Agents fexofenadin e 180 mg tablet 2021-11 00:00: 00 Yes [id number] ALLERGIES 1 tablet DAILY 1 tablet DAILY (route: oral) Med Classific ation: Respirato ry Therapy Agents Flomax 0.4 mg capsule 2021-11 00:00: 00 Yes [id number] PROSTATE 1 capsule DAILY 1 capsule DAILY (route: oral) Med Classific ation: Genitouri nary Therapy multivitami n tablet 2021-11 00:00: 00 Yes [id number] SUPPLEMENT 1 tablet DAILY 1 tablet DAILY (route: oral) Med Classific ation: Electroly te Balance-N utritiona l Products omeprazole 20 mg capsule,del ayed release 2021-11 00:00: 00 Yes [id number] GASTROESOPH AGEAL REFLUX DISEASE 1 capsule DAILY 1 capsule DAILY (route: oral) Med Classific ation: Gastroint estinal Therapy Agents Pain Relief (acetaminop hen) 650 mg tablet,exte nded release 2021-11 00:00: 00 Yes [id number] PAIN 1 tablet EVERY 8 HOURS 1 tablet EVERY 8 HOURS (route: oral) Med Classific ation: Analgesic , Anti-infl ammatory or Antipyret ic prochlorper azine maleate 10 mg tablet 2021-11 00:00: 00 Yes [id number] NAUSEA 1 tablet EVERY 6 HOURS 1 [...] AND MAGNESIUM WEEK OF . DELIVER TO [facility]* LABORATORY FAX RESULTS TO SATNAM THOMAS MD [phone] [code = VENIPUNCTURE DIAGNOSTIC; SKILLED NURSE TO PERFORM VENIPUNCTURE FOR BMP AND MAGNESIUM OF . DELIVER TO [facility]* LABORATORY FAX RESULTS TO SATNAM THOMAS MD [phone]] Future Scheduled Test PRN VISITS ; PATIENT REQUIRES 1 PRN RESIDENTIAL VISIT FOR S/S OF COPD EXACERBATION [code = PRN VISITS; PATIENT REQUIRES 1 PRN RESIDENTIAL VISIT FOR S/S OF COPD EXACERBATION] Future [...] EMERGENCY SERVICES CALL [facility] NURSE TO KEEP SR. LOGISTICS ANALYST SYMPTOM REPORT FOR VISIBLE REFERENCE NOTIFY SKILLED [...] EMERGENCY SERVICES CALL [facility] NURSE TO KEEP SR. LOGISTICS ANALYST SYMPTOM REPORT FOR VISIBLE REFERENCE NOTIFY SKILLED [...] End Date/Time Encounter Type Admission Type Attending [facility] Care Department Encounter ID Discharge Date Discharge Status Discharge Condition Discharge Reason Percent Goals Met 2022-10-02 00:00:00 2022-11-01 00:00:00 Outpatient NEW ADMISSION [facility] [id number] 2022-11-01 00:00:00 DISCHARGE TO HOME OR SELF CARE INDEPENDEN T IN THE COMMUNITY ONLY - PER CLIENT REQUEST 100.00
--- OUTSIDE RECORDS SUMMARY | 2024-11-05 00:13 | XMS_ITS | Encounter Summary ---
Author Organization [facility] Address [address] [place] [address] Care Team Providers Care Director Of Loss Prevention Name Role Phone Luis Fernando Vo MD Primary Care Provider +1- [phone] Encounter Details Date Type Department Care Team (Late st Contact Info) Description 09/05/1999 Outpatient Historical [facility] Luis Fernando Vo MD [address] [place] [address] Social History Tobacco Use Types [...] on filedocumented in this encounter Care Teams Director Of Loss Prevention Relationship Specialty Start Date End Date Luis Fernando Vo MD [address] [place] [address] PCP - General Interventional Cardiology 01/31/12 documented as of this encounter
--- OUTSIDE RECORDS SUMMARY | 2024-11-05 00:13 | XMS_ITS | Encounter Summary ---
Author Organization [employer] Address [address] [place] [address] Care Team Providers Care Donor Support Technician Name Role Phone Luis Fernando Vo MD Primary Care Provider +1- [phone] Encounter Details Date Type Department Care Team (Late st Contact Info) Description 06/08/1999 Outpatient Historical [facility] Maynor Vitale MD [address] [place] [address] Social History Tobacco Use Types [...] on filedocumented in this encounter Care Teams Donor Support Technician Relationship Specialty Start Date End Date Luis Fernando Vo MD [address] [place] [address] PCP - General Interventional Cardiology 01/31/12 documented as of this encounter
--- OUTSIDE RECORDS SUMMARY | 2024-11-05 00:13 | XMS_ITS | Encounter Summary ---
Author Organization [facility] Address [address] [place] [address] Care Team Providers Care Licensed Master Social Worker Name Role Phone Mike Lebron MD Primary Care Provider +1- [phone] Encounter Details Date Type Department Care Team (Late st Contact Info) Description 02/21/2012 11:00 AM CDT - 02/21/2012 11:30 AM CDT Surgery [address] [place] [address] Peewee Easton MD NO ADDRESS ON FILE COLONOSCOPY Surgery Details Date/Time Status Location OR Service Patient Class Case Class Case Type Trauma Case? 02/21/2012 11:00 AM Posted [facility] OR Gastroenterology Outpatient Elective No Panel 1 Procedure LRB Anes Op Region Wound Class Comments COLONOSCOPY N/A General Anus Clean Contaminated -II DR. MIKE LEBRON Surgeon Surgeon Role Service Panel Peewee Easton MD Primary Gastroenterology 1 documented in this encounter Social History Tobacco [...] Sign Reading Time Taken Comments Blood Pressure 129/71 02/21/2012 10:49 AM CDT Pulse 73 02/21/2012 10:49 AM CDT Temperature 36.5 ??C (97.7 ??F) 02/21/2012 10:49 AM C DT Respiratory Rate 18 02/21/2012 10:49 AM CDT Oxygen Saturation 95% 02/21/2012 10:49 AM CDT Inhaled Oxygen Concentration - - [...] soreness at the IV site Office Phone: [facility] [phone] [facility]???s [phone] After Hours Exchange: * Attachments The following attachments cannot be sent through Care Everywhere. * HEMORRHOIDS: AFTER YOUR VISIT (NEPALESE) * DIVERTICULOSIS: AFTER YOUR VISIT (NEPALESE) * HIGH-FIBER DIET: AFTER YOUR VISIT (NEPALESE) documented in this encounter Medications at Time [...] Peewee Easton MD documented in this encounter Procedure Notes * [facility] Carbone, [facility] - 02/21/2012 12:13 PM CDTAssociated Order(s): GI REPORT * Peewee Easton MD - 02/21/2012 12:13 PM CDTAssociated Order(s): GI REPORT [facility] Endoscopy Patient Name: Cedric Mckinney Procedure Date No Time: 02/21/2012 Date of : 1935 Age: 76 Gender: Male Attending MD: Peewee Easton MD Procedure: Colonoscopy Indications: Personal history of colonic polyps Providers: Peewee Easton MD Referring MD: Mike Lebron MD Medicines: TIVA Procedure: Informed consent was obtained for the procedure, including moderate sedation after risks were discussed. Based on the pre-procedure assessment, including review of the patient?s medical history, medications, allergies, and review of systems, the patient was deemed to be an appropriate candidate for sedation. A timeout was performed. Continuous ECG monitoring, pulse oximetry, blood pressure monitoring, and direct observation were performed. The scope was introduced through the anus and advanced to the cecum, identified by appendiceal orifice & ileocecal valve. The colonoscopy was performed with ease. The patient tolerated the procedure well. The quality of the bowel preparation was excellent. Estimated Blood Loss: Estimated blood loss: none. Findings: Small internal hemorrhoids were found during retroflexion.Multiple small-mouthed diverticula were found in the sigmoid colon. There was no inflammation or luminal narrowing.The examination was otherwise negative. No polyps were seen. The cecum and ileocecal valve were normal. Complications: No immediate complications. Impression: - Small internal hemorrhoids. - Diverticulosis in the sigmoid colon. - Otherwise negative examination with no polyps seen. Recommendation: - High fiber diet. - Continue present medications. Peewee Easton MD 02/21/2012 12:13 PM This report has been signed electronically. Number of Addenda: [phone] [address] documented in this encounter OR Notes * OR Anesthesia - Huseyin Cooney - 02/21/2012 4:33 PM CDT * OR Anesthesia - Ryley Carpio MD - 02/21/2012 11:56 AM CDT Phase II Postanesthesia Evaluation Including [facility] Modified Simone Score Patient seen and evaluated: RESPIRATORY FUNCTION: Respiration: able to breath and cough freely (02/21/121101) [2=able to breathe and cough freely, 1=dyspnea, limited breathing or tachypnea, 0=apnea or mechanicventilator] O2 Saturation: able to maintain O2 saturation greater than 92% on room air (02/21/121101) [2=able to maintain O2 saturation greater than [...] to drink fluids, ice chips or NPO (02/21/12 1102) [2=able to drink fluids, ice chips or NPO, 1=nauseated, 0=nausea and vomiting] POSTOPERATIVE HYDRATION: No intake or output data in the 24 hours ending 02/21/12 1156 Urine Output: has voided, adequate urine output per device, or not applicable (02/21/12 1102) [2=has voided, adequate urine output per device, or not applicable, 1=unable to void but comfortable, 0=unable to void and uncomfortable] WOUND: Dressing: dry and clean or not applicable (02/21/12 1102) [2=dry and clean or not aplicable, 1=wet, marked and not increasing, 0=growing area of wetness] [facility] Modified Simone Score: Score: 20 (02/21/12 1102) COMMENTS: No apparent Anesthesia related complications Ryley Carpio MD 02/21/2012 11:56 AM * OR Anesthesia - Ryley Carpio MD - 02/21/2012 11:19 AM CDT GI Lab Pre-Anesthesia Evaluation - Long Form 02/21/2012 11:19 AM Name: Cedric Mckinney Age: 76 y.o. Sex: male CSN: [id number] Procedure: Procedure(s): COLONOSCOPY Surgeons/Assistants: Surgeon(s) and Role: [...] Notes * Scanned Form - Stl Scanning, [facility] - 03/07/2012 8:44 PM CDT Electronically signed by Interface [facility] [employer] Incoming at 03/07/2012 8:44 PM CDT * Scanned Form - [facility]l Scanning, [facility] - 02/21/2012 4:33 PM CDT Electronically signed by Interface [facility] [employer] Incoming at 02/21/2012 4:33 PM CDT * Patient Instructions - Stl Scanning, [facility] - 02/21/2012 4:33 PM CDT Electronically signed by Interface, [facility] [employer] Incoming at 02/21/2012 4:33 PM CDT documented [...] Starting on Scarlett 02/21/12 at 1115, Until Sat02/22/12 at 0201, Routine New Bag 02/21/2012 11:15 AM CDT 125 mL/hr documented in this encounter Active and Recently Administered Medications Times are shown in CDT. Continuous Medication Order 02/19/2012 02/20/2012 02/21/2012 lactated ringers solution (CANCELED) IV, at 125 mL/hr, PRE-PROCEDURE CONTINUOUS, Starting on Scarlett 02/21/12 at 1115, Until 02/22/12 at 0201, Routine 1115 (New Bag - Prov ider: Stephany Mccann, RN)1213 (Canceled Entry - Provider: Mita Ramírez, JOSE)1214 (Stopped - Provider: Katharina Jacques, JOSE) documented in this encounter Care Teams Licensed Master Social Worker Relationship Specialty Start Date End Date Mike Lebron MD [address] [place] [address] [place] [address] PCP - General Interventional Cardiology 01/31/12 documented as of this encounter
== END 2024-10-29 00:53 | disposition left against medical advice (07) ==
PROVIDERS: Emergency Provider Emergency Medicine
DX: R06.02 Shortness of breath (principal)
CPT/HCPCS: 93005; 99199

== ENCOUNTER 2025-01-14 09:00 | Outpatient (CLI) | payer MEDICARE, SELFPAY ==
--- OUTSIDE RECORDS SUMMARY | 2025-01-14 10:00 | XMS_ITS | Clinical Summary ---
Author Organization [facility] Address [address] [place] [address] Phone Care Team Providers Care Oracle Specialist Name Role Phone Luis Fernando Vo MD Primary Care Provider +1- [phone] Allergies No known active allergies Medications aspirin (KULWANT) 81 mg Oral Tab Take by mouth daily. Active MULTIVITAMIN ORAL Take 1 Tab by mouth daily. Active OXYBUTYNIN CHLORIDE ORAL Take 5 mg by mouth daily. Active fexofenadine (JENNIFER) 60 mg Oral tablet Take 60 mg by mouth. Active isosorbide dinitrate (ISORDIL) 10 mg Sublingual Subl Take 5 mg by mouth daily. Active fluticasone-jovan meterol (ADVAIR HFA) 230-21 mcg/actuation Inhalation HFAA Take [...] 20 mg by mouth Daily LATE. 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 Gender Identity Not on file Sexual Orientation Not on file Occupation Industry Job Start Date Job End Date Not on file Not on file Not on file Not on file Last Filed Vital Signs Vital Sign Reading Time Taken Comments Blood Pressure 119/56 02/21/2012 12:08 PM CDT Pulse 56 02/21/2012 12:08 PM CDT Temperature 36.4 C (97.6 F) 02/21/2012 11:56 AM CDT Respiratory Rate 16 02/21/2012 12:08 PM CDT Oxygen Saturation 95% 02/21/2012 12:08 PM CDT Inhaled Oxygen Concentration - - Weight 86.2 kg (190 lb) 02/21/2012 10:49 AM CDT Height 177.8 cm (5' 10 ) 02/21/2012 10:49 AM CDT Body Mass Index 27.26 02/21/2012 10:49 AM CDT Plan of Treatment Health Maintenance Due Date Last Done Comments DTAP/TDAP/TD VACCINES (1 - Tdap) 1954 PNEUMOCOCCAL VACCINE 50+ YEA RS (1 of 1 - PCV) 1985 ZOSTER VACCINE (1 of 2) 1985 RSV VACCINE (60+ or ) (1 - 1-dose 75+ series) 2010 COLORECTAL SCREENING 02/20/2017 02/21/2012, 02/21/2012, 11/24/2002 INFLUENZA VACCINE (#1) 2024 Procedures Procedure Name Priority Date/Time Associated Diagnosis Comments ENDOSCOPY, COLON, DIAGNOSTIC Routine 11/24/2002 from Last 3 Months or Most Recently Relevant to Health Maintenance Results * (ABNORMAL) ENDOSCOPY, COLON, DIAGNOSTIC (11/24/2002) Peewee Easton MD GI PROCEDURE ORDERABLES Edited [facility] from Last 3 Months or Most Recently Relevant to Health Maintenance Insurance MEDICARE PART A AND B [facility] BLUE ACCESS CHOICE [facility] SUPP Advance Directives For more information, please contact: [phone] * Full Code (Latest Code Status on File) Date Activated Date Inactivated Comments 02/21/2012 11:10 AM 02/22/2012 2:01 AM Care Teams Oracle Specialist Relationship Specialty Start Date End Date Luis Fernando Vo MD [address] [place] [address] [address] [place] [address] PCP - General Interventional Cardiology 01/31/12
--- OUTSIDE RECORDS SUMMARY | 2025-01-14 10:00 | XMS_ITS | Encounter Summary ---
Author Organization [employer] Address 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
--- OUTSIDE RECORDS SUMMARY | 2025-01-14 10:00 | XMS_ITS | Continuity of Care Document ---
Author Organization [facility] Address [address] [place] [address] [place] [address] Phone Care Team Providers Care Veterinary Livestock Inspector Name Role Phone Anita Sotelo Unavailable Unavailable [...] Diagnoses Date Provider Providers Copied on Encounter [facility], [address] [place] [address] [address], [place], [place], [id number], tel:[phone] [facility] No Information 4-201 0 Ashleigh Hamilton [address], [place], [place], [facility] [place]note 2], [place]. tel:[phone] Office/outpat ient Visit, Est [facility], [address] [place] [address] [address], [place], [place], [id number], tel:[phone] [facility] No Information 8-200 9 Ashleigh Hamilton [address] , [address], [place], [address], [place]. tel:[phone] [facility], [address] [place] [address] [address], [place], [place], [id number], tel:[phone] [facility] No Information Mar-0 7-200 8 Ashleigh Howard. [address] [facility] [address] , [address], [place], [place], [facility] [place][note 2], . tel:[phone] Office/outpat ient Visit, Est [facility] Eye [facility], [address] [place] [address] [address], [place], [place], [id number], [place] tel:[phone] [facility] No Information Sep-0 4-200 7 Hare OD Bhanu. [address] [facility] , [address], [place], [place], [facility] [place][note 2], . tel:[phone] [facility], [address] [place] [address] [address], [place], [place], [id number], tel:[phone] [facility] No Information Feb-1 6-200 7 Ashleigh Howard. [address] [facility] , [address], [place], [place], [facility] [place][note 2], . tel:[phone] Referring Provider: Anita Mishra [address] [place], [place] [address], [place], [place], [facility] [place][note 2]. tel:[phone] Family History Family Member Type Diagnosis Age At Onset No Information Payers Payer name Insurance type Covered constitution party ID Authoriza tion(s) Medicare [facility] [id number] [place] [id number] Social History Type Description Quantity Date Captured [...]
--- OUTSIDE RECORDS SUMMARY | 2025-01-14 10:00 | XMS_ITS | Encounter Summary ---
Author Organization [facility] Address [address] [place] [address] Care Team Providers Care Business Support Specialist Name Role Phone Luis Fernando Vo MD Primary Care Provider +1- [phone] Encounter Details Date Type Department Care Team (Late st Contact Info) Description 01/21/2019 Lab Requisition [facility] Care DermPath Lab [address] [facility], [place] [phone] Chiki Nicholson MD [address] [place] [address] Social History Tobacco Use Types [...] 12:00 AM CDT) Case Report Dermatopathology Report Case: [id number] Authorizing Provider: Chiki Nicholson MD Collected: 01/20/2019 12:00 AM Pathologist: Angelika Peters MD Received: 01/21/2019 11:27 AM Specimen: Skin, left preauric cheek 3:28 PM CDT DERMATOPATHOLOGY LABORATORY Final Diagnosis Specimen A. 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 3:28 PM CDT DERMATOPATHOLOGY LABORATORY Gross Description Specimen A: Received is one formalin filled container labeled with the patient's name and designated left preauric cheek. The specimen consists of a shave biopsy (2 pieces) measuring 8a3j1ej, bisected, & 9y2o3cf. Jar 0. 3:28 PM CDT DERMATOPATHOLOGY LABORATORY Microscopic Description Specimen A. SKIN, left preauric cheek: Sections show skin with irregularly shaped nests of keratinocytes with evidence of cornification. In some nests, there is loss of cohesion between the neoplastic cells, as well as individual dyskeratotic cells that lack intercellular bridges. 3:28 PM CDT DERMATOPATHOLOGY LABORATORY Disclaimer An external and internal positive and negative controls are appropriate for the histochemical, immunohistochemical and immunofluorescence stain(s) in this case (if any), except where stated explicitly. The performance characteristics of the stain(s) cited in this report were developed and its performance characteristic determined by the Dermatopathology Laboratory at [facility], directed by Dr. Azalea Peters. These tests need not be, and therefore are not, approved by the [place] Food and Drug Administration. The tests are used for clinical purposes. Billing Codes Specimen Charges Stain Charges 20473 1 3:28 PM CDT DERMATOPATHOLOGY LABORATORY Embedded Images 3:28 PM CDT DERMATOPATHOLOGY LABORATORY Pathology/Cytolog y TISSUE SPECIMEN FROM SKIN / Unknown 01/20/2019 01/21/2019 11:27 AM CDT Chiki Nicholson MD LAB - PATHOLOGY/CYTO LOGY ORDERABLES DERMATOPATHOLOGY LABORATORY [facility] - Department of Dermatology [address] [facility], 5th Floor Lab [address] [phone] documented in this encounter Visit Diagnoses Not on filedocumented in this encounter Care Teams Business Support Specialist Relationship Specialty Start Date End Date Luis Fernando Vo MD [address] [facility] [address] [place] [address] PCP - General Cardiovascular Disease 06/06/21 documented as of this encounter
--- OUTSIDE RECORDS SUMMARY | 2025-01-14 10:00 | XMS_ITS | Patient Health Summary ---
Author Organization [facility] Address [address] [facility] [place] [address] Care Team Providers Care Applied Technologist Name Role Phone Luis Fernando Vo MD Primary Care Provider +1- [phone] Note from [facility],non-owned Affiliates and Associated Physician Practices is amultiple site organization consisting of ambulatory clinics and hospital sitesin [place], [place], [place] and [place]. This disclosure is being madepursuant to the Care Everywhere program and may not contain all information available regarding this patient. Last updated 18.[facility] Allergies No known active allergies Medications * [...] BABY AYR) 0.65 % nasal spray(Started 07/05/2021) [place] 2 (two) sprays into each nostril 4 [...] 72 08/08/2021 3:01 PM CDT Temperature 36.5 C (97.7 F) 07/05/2021 12:47 PM CDT Respiratory Rate 15 07/05/2021 1:15 PM CDT [...] period is included. Case Report Dermatopathology Report Case: [id number] Authorizing Provider: Chiki Nicholson MD Collected: 08/20/2023 12:00 AM Ordering Location: [facility] DermPath Lab Received: 08/21/2023 01:57 PM Pathologist: Ileana Sandoval MD Specimen: Skin, right volar mid FA 3 3:43 PM CDT DERMATOPATHOLOGY LABORATORY Final [...] specimen consists of a shave biopsy measuring 63s26q3 mm. Jar 0. 3:43 PM CDT DERMATOPATHOLOGY [...] determined by the Dermatopathology Laboratory at [facility], directed by Dr. Azalea Peters. These tests need not be, and therefore are not, approved by the [place] Food and Drug Administration. The tests are used for clinical purposes. Billing Codes Specimen Charges Stain Charges 89120 1 3:43 PM CDT DERMATOPATHOLOGY LABORATORY Embedded Images 3:43 PM CDT DERMATOPATHOLOGY LABORATORY Pathology/Cytolog y TISSUE SPECIMEN FROM SKIN / Unknown 08/20/2023 08/21/2023 1:57 PM CDT Chiki Nicholson MD LAB - PATHOLOGY/CYTO LOGY ORDERABLES DERMATOPATHOLOGY LABORATORY [facility] - Department of Dermatology [address], [address]rd Floor [address] [phone] * CARDIAC EKG ORDER (07/07/2021 1:08 PM CDT) Narrative 07/07/2021 1:08 PM CDT Ordered by an unspecified provider. Scanned Document CARDIAC SERVICES ORD ERABLES * PATHOLOGY TISSUE (07/05/2021 10:01 AM CDT) Case Report Surgical Pathology Report Case: [id number] Authorizing Provider: Cresencio Sotelo MD Collected: 07/05/2021 10:01 AM Ordering Location: [facility] OP Received: 07/05/2021 01:32 PM Pathologist: Macie Vo MD Specimen: Skin, COMPLETION RESECTION NASAL TIP (LONG STITCH TOWARDS DORSUM, SHORT STITCH TOWARDS ALA) 07/19/2021 10:16 AM [facility] PATHOLOGY LAB Final Diagnosis Skin, nasal tip, long stitch dorsum, short stitch ala, oriented completion resection (A): - Melanocytic hyperplasia without atypia, associated with scar; all margins free of melanocytic hyperplasia (see description) 07/19/2021 10:16 AM [facility] PATHOLOGY LAB Microscopic Description and Comment [...] (A2, A3, A4; controls stained appropriately). No zragymjo-bv-wakz or melanoma is seen. The melanocytic hyperplasia is 6 mm from the 12:00 margin, 2 mm from the 3:00 margin, 1 mm from the 6:00 margin, and 2 mm from the 9:00 margin, measured using the MART1/MelanA and H and E stains. The 3:00 tip has scar. The dermis has marked solar elastosis. 07/19/2021 10:16 AM [facility] PATHOLOGY LAB Clinical History The patient is an 85-year-old male with a history of melanoma first diagnosed in 2016 status post staged excision. Patient was referred for slow-Mohs technique ([id number], 06/20/21; [id number], 06/29/21) with final margins negative for lentiginous hhbevksu-ol-pdww. The current procedure is for reconstruction. 07/19/2021 10:16 AM [facility] PATHOLOGY LAB Gross Description The requisition [...] A5 3:00, perp. CP 07/19/2021 10:16 AM [facility] PATHOLOGY LAB Disclaimer The performance characteristics of all immunohistochemical and indirect immunofluorescence stains (if any) cited in this report were determined by the Histopathology Laboratory of [facility]. Some of these tests [...] the attending (teaching) pathologist. 07/19/2021 10:16 AM [facility] PATHOLOGY LAB Embedded Images 07/19/2021 10:16 AM [facility] PATHOLOG[facility] LAB Biopsy, Excision TISSUE SPECIMEN FROM SKIN / Unknown 07/05/2021 10:01 AM CDT 07/05/2021 1:32 PM CDT Comment:Pre-op diagnosis: MELANOCYTIC NEOPLASM Cresencio Sotelo MD LAB - PATHOLOGY/CYTO LOGY ORDERABLES [facility] PATHOLOGY LAB [facility]an [facility] [place] [address], [facility] [phone] * ETT LINE PERFORMABLE (07/05/2021 9:38 AM CDT) Rosaline Gastelum APRN-CRNA - 07/05/2021 9:38 AM CDT Rosaline Willingham APRN-CRNA 07/05/2021 9:39 AM Endotracheal Tube Placement: Patient Location: OR. Procedure: intubation ([id number]). Procedure Section: Sedation: under general anesthesia. Indications [...] 06/27/2021 3:20 PM CDT Charles Sotelo MD 06/30/2021 5:16 PM Date of Service: 06/27/21 Surgery: Slow Mohs staged excision, subsequent stage Stage #: 2 Tumor Type: melanoma in situ Location: Nasal tip Derm-Path Pre-Op Size: 3.0x3.0 cm Post-Op Size: 4.0x4.0 cm Surgical margins: 0.5 cm Level of Defect: adipose Repair Type: path pending with Cresencio Sotelo MD Primary Surgeon: Charles Sotelo MD Policy Officer: Marlin Margins positive on previous stage: 12-3 [...] surgery pending histopathologic review. Nina Isaac MD,MPH [facility] Dermatology Resident, PGY-3 Charles Sotelo MD PROCEDURE/MINOR SURG ICAL ORDERABLES * PATHOLOGY/CYTOLOGY REPORT ORDER (06/27/2021) 06/27/2021 Narrative 06/27/2021 Ordered by an unspecified provider. Scanned Document LAB - PATHOLOGY/CYTO LOGY ORDERABLES * PROC EXCISION SKIN FACE FACIAL BENIGN (06/20/2021 3:26 PM CDT) Narrative Charles Sotelo MD - 06/20/2021 3:26 PM CDT Charles Sotelo MD 06/27/2021 8:18 AM Date of Service: 06/20/2021 Surgery: Slow Mohs staged excision Stage #: 1 Tumor Type: Lentiginous melanocytic proliferation Location: nasal tip Derm-Path Pre-Op Size: 2.0x2.0 cm Post-Op Size: 3.0x3.0 cm Surgical margins: 0.5cm Level of Defect: adipose Repair Type: path pending Primary Surgeon: Charles Sotelo MD Policy Officer: Tate INDICATIONS: The risks of bleeding, infection, [...] report. I entered the information in our [employer] DocFlowsheet with the information provided by Dr. Sotelo on her handwritten, paper format, surgical worksheet, which was then used to initiate the create of this note. Dr. Sotelo then reviewed and edited the note as needed to complete the note. Kathy Ybarra LPN Charles Sotelo MD PROCEDURE/MINOR SURG ICAL ORDERABLES * TYPE + SCREEN PANEL (06/15/2021 10:10 AM CDT) Antibody Screen NEG 11:14 AM CDT [facility] ABO Rh O POS 06/15/2021 11:14 AM CDT [facility] Blood Bank BLOOD SPECIMEN / Unknown Lab Venipuncture / Unknown 06/15/2021 10:10 AM CDT 06/15/2021 10:20 AM CDT Paris Epstein DO LAB - BLOOD BANK O RDERABLES [facility] [address] [place] [address], [facility] [phone] * CBC W/O DIFFERENTIAL (06/15/2021 10:10 AM CDT) WBC 7.6 3.5 - 10.5 10 3/uL 06/15/2021 10:28 AM [facility] RBC 5.48 4.30 - 5.70 10 6/uL 06/15/2021 10:28 AM [facility] Hemoglobin 16.2 12.0 - 17.6 g/dL 06/15/2021 10:28 AM [facility] Hematocrit 48.4 35.2 - 51.7 % 06/15/2021 10:28 AM [facility] MCV 88.3 80.7 - 98.3 fL 06/15/2021 10:28 AM [facility] MCH 29.6 26.7 - 34.0 pg 06/15/2021 10:28 AM [facility] MCHC 33.5 30.8 - 35.9 g/dL 06/15/2021 10:28 AM [facility] Platelet Count 177 150 - 400 10 3/uL 06/15/2021 10:28 AM [facility] RDW-SD 42.3 36.0 - 50.0 fL 06/15/2021 10:28 AM [facility] RDW-CV 13.1 11.2 - 14.8 % 06/15/2021 10:28 AM [facility] MPV 10.4 9.4 - 12.9 fL 06/15/2021 10:28 AM [facility] nRBC Absolute 0.00 0 10 3/uL 06/15/2021 10:28 AM [facility] nRBC Auto 0.0 0 /100 WBC 06/15/2021 10:28 AM [facility] Blood BLOOD SPECIMEN / Unknown Lab Venipuncture / Unknown 06/15/2021 10:10 AM CDT 06/15/2021 10:20 AM T Paris Epstein DO LAB - HEMATOLOGY O RDERABLES Performing Organization Address City/State/[facility] Co de Phone Number [facility] [address] [place] [address], [facility] [phone] * (ABNORMAL) BASIC METABOLIC PANEL (CALCIUM TOTAL) (06/15/2021 10:10 AM CDT) BUN 19 7 - 26 mg/dL 06/15/2021 10:49 AM [facility] Creatinine 1.54(H) 0.71 - 1.16 mg/dL 06/15/2021 10:49 AM [facility] Sodium 141 136 - 145 mmol/L 06/15/2021 10:49 AM [facility] Potassium 4.3 3.5 - 4.5 mmol/L 06/15/2021 10:49 AM [facility] Chloride 106 98 - 107 mmol/L 06/15/2021 10:49 AM [facility] CO2 26 22 - 29 mmol/L 06/15/2021 10:49 AM [facility] Glucose 110 70 - 115 mg/dL 06/15/2021 10:49 AM [facility] Calcium 9.7 8.4 - 10.2 mg/dL 06/15/2021 10:49 AM [facility] Anion Gap 13 8 - 18 06/15/2021 10:49 AM CDT [facility] BUN/Creatinine Ratio 12 7 - 23 06/15/2021 10:49 AM CDT [facility] Osmolality Calculated 295 270 - 300 mOsm/kg 06/15/2021 10:49 AM CDT [facility] eGFR by CKD-EPI 41(L) >=90 mL/min/1.7 3 m2 06/15/2021 10:49 AM CDT [facility] Blood BLOOD SPECIMEN / Unknown Lab Venipuncture / Unknown 06/15/2021 10:10 AM CDT 06/15/2021 10:19 AM CDT Paris Epstein DO LAB - CHEMISTRY OR DERABLES [facility] [address] [place] [address], [facility] [phone] * EKG 12-LEAD (06/15/2021 9:17 AM CDT) Ventricular Rate 83 BPM [facility] Atrial Rate 83 BPM [facility] P-R Interval 182 ms [facility] QRS Duration ms 102 ms [facility] Q-T Interval ms 396 ms [facility] QTC Calculation (Bezet) 465 ms [facility] Calculated P [place] 62 degrees [facility] Calculated R [place] -28 degrees [facility] Calculated T [place] 90 degrees [facility] Interpretation EKG NORMAL SINUS RHYTHM POOR R WAVE PROGRESSION ABNORMAL ECG NO PREVIOUS ECGS AVAILABLE Confirmed by fellow Lc Klein ([id number]) on 06/15/2021 3:10:15 PM Confirmed by Jone Summers ([id number]) on 06/17/2021 12:09:27 AM [facility] 06/15/2021 9:17 AM CDT 06/17/2021 12:09 AM CDT Paris Epstein DO ECG ORDERABLES Performing Organization Address City/[facility] Hospital/ZIP Co de Phone Number [facility] * PATHOLOGY/GENETICS HISTORICAL-ONBASE (03/29/2016) Only the most recent of8 resultswithin the time period is included. 03/29/2016 Narrative [facility] - 04/19/2016 2:18 PM CDT Historical Provider LAB - CHEMISTRY O RDERABLES [facility] [address] [place] [address], [facility] Care Teams Applied Technologist Relationship Specialty Start Date End Date Luis Fernando Vo MD [address] [facility] [address] [place] [address] PCP - General Cardiovascular Disease 06/06/21
--- OUTSIDE RECORDS SUMMARY | 2025-01-14 10:00 | XMS_ITS | Encounter Summary ---
Author Organization [employer] Address 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
--- OUTSIDE RECORDS SUMMARY | 2025-01-14 10:00 | XMS_ITS | Encounter Summary ---
Author Organization [facility] Address [address] [facility] [place] [address] Care Team Providers Care Manager Grocery Name Role Phone Luis Fernando Vo MD Primary Care Provider +1- [phone] Encounter Details Date Type Department Care Team (Late st Contact Info) Description 08/21/2023 Lab Requisition [facility] - Derm[facility] Lab [address] [place] [address] Chiki Nicholson MD [address] [place] [address] Social History Tobacco Use Types [...] AM CDT) Case Report Dermatopathology Report Case: [id number] Authorizing Provider: Chiki Nicholson MD Collected: 08/20/2023 12:00 AM Ordering Location: [facility] DermPath Lab Received: 08/21/2023 01:57 PM Pathologist: Ileana Sandoval MD Specimen: Skin, right volar mid FA 3:43 PM CDT DERMATOPATHOLOGY LABORATORY Final Diagnosis Specimen A. 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 The specimen consists of a shave biopsy measuring 05d99w4 mm. Jar 0. 3:43 PM CDT DERMATOPATHOLOGY [...] characteristic determined by the Dermatopathology Laboratory at [facility], directed by Dr. Azalea Peters. These tests need not be, and therefore are not, approved by the [place] Food and Drug Administration. The tests are used for clinical purposes. Billing Codes Specimen Charges Stain Charges 96548 1 3:43 PM CDT DERMATOPATHOLOGY LABORATORY Embedded Images 3:43 PM CDT DERMATOPATHOLOGY LABORATORY Pathology/Cytolog y TISSUE SPECIMEN FROM SKIN / Unknown 08/20/2023 08/21/2023 1:57 PM CDT Chiki Nicholson MD LAB - PATHOLOGY/CYTO LOGY ORDERABLES DERMATOPATHOLOGY LABORATORY [facility] - Department of Dermatology [facility] Medicine [address] [place] [address], [address] [phone] documented in this encounter Visit Diagnoses Not on filedocumented in this encounter Care Teams Manager Grocery Relationship Specialty Start Date End Date Luis Fernando Vo MD [address] [place] [address] [place] [phone] PCP - General Cardiovascular Disease 06/06/21 documented as of this encounter
--- OUTSIDE RECORDS SUMMARY | 2025-01-14 10:00 | XMS_ITS | Encounter Summary ---
Author Organization [employer] Address 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
--- OUTSIDE RECORDS SUMMARY | 2025-01-14 10:00 | XMS_ITS | Encounter Summary ---
Author Organization [facility] Address [address] [facility] [place] [address] Care Team Providers Care Antique Clock Repairer Name Role Phone Luis Fernando Vo MD Primary Care Provider +1- [phone] Encounter Details Date Type Department Care Team (Late st Contact Info) Description 02/06/2023 Lab Requisition [facility] [address] [facility] [place] [address] Chiki Nicholson MD [address] [place] [address] Social History Tobacco Use Types [...] 3:33 AM CDT) Case Report Dermatopathology Report Case: [id number] Authorizing Provider: Chiki Nicholson MD Collected: 02/05/2023 03:33 AM Ordering Location: [facility] DermPath Lab Received: 02/06/2023 02:23 PM Pathologist: Ileana Sandoval MD Specimens: A) - Skin, dorsal left hand B) - Skin, dorsal right prox forearm 3:46 PM CDT DERMATOPATHOLOGY LABORATORY Final Diagnosis Specimen A. 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 SKIN, dorsal right prox forearm: SQUAMOUS CELL CARCINOMA, KERATOACANTHOMA TYPE (C44.622) 3:46 PM CDT DERMATOPATHOLOGY LABORATORY Clinical History A-B: R/O SCC, KA 3:46 PM CDT DERMATOPATHOLOGY LABORATORY Gross Description Specimen A: Received is one formalin filled container labeled with the patient's name and designated dorsal left hand. The specimen consists of a shave biopsy measuring 30h95v3 mm. Jar 0. Specimen B: Received is one formalin filled container labeled with the patient's name and designated dorsal right prox forearm. The specimen consists of a shave biopsy measuring 70i61g4 mm. Jar 0. 3:46 PM CDT DERMATOPATHOLOGY [...] with relatively large keratinocytes and neutrophilic abscesses. 3 3:46 PM CDT DERMATOPATHOLOGY LABORATORY Disclaimer An external and internal positive and negative controls are appropriate for the histochemical, immunohistochemical and immunofluorescence stain(s) in this case (if any), except where stated explicitly. The performance characteristics of the stain(s) cited in this report were developed and its performance characteristic determined by the Dermatopathology Laboratory at [facility], directed by Dr. Azalea Peters. These tests need not be, and therefore are not, approved by the [place] Food and Drug Administration. The tests are used for clinical purposes. Billing Codes Specimen Charges Stain Charges 89000 18511 1 1 3 3:46 PM CDT DERMATOPATHOLOGY LABORATORY Embedded Images 3 3:46 PM CDT DERMATOPATHOLOGY LABORATORY Pathology/Cytology TISSUE SPECIMEN FROM SKIN / Unknown 02/05/2023 3:33 AM CDT 02/06/2023 2:23 PM CDT Miscellaneous samples (specimen) TISSUE SPECIMEN FROM SKIN / Unknown 02/05/2023 3:33 AM CDT 02/06/2023 2:23 PM CDT Chiki Nicholson MD LAB - PATHOLOGY/CYTO LOGY ORDERABLES DERMATOPATHOLOGY LABORATORY [facility] - Department of Dermatology [facility] Medicine [address] [place] [address], [address] [phone] documented in this encounter Visit Diagnoses Not on filedocumented in this encounter Care Teams Antique Clock Repairer Relationship Specialty Start Date End Date Luis Fernando Vo MD [address] [place] [address] [address] [place] [phone] PCP - General Cardiovascular Disease 06/06/21 documented as of this encounter
--- OUTSIDE RECORDS SUMMARY | 2025-01-14 10:00 | XMS_ITS | Encounter Summary ---
Author Organization [facility] Address [address] [place] [address] Care Team Providers Care Non Categorical Preschool Teacher Name Role Phone Luis Fernando Vo MD Primary Care Provider +1- [phone] Encounter Details Date Type Department Care Team (Late st Contact Info) Description 05/02/2021 Lab Requisition [facility] Care Derm[facility] Lab [address] [facility], [place] [address] Chiki Nicholson MD [address] [place] [address] Social History Tobacco Use Types [...] AM CDT) Case Report Dermatopathology Report Case: [id number] Authorizing Provider: Chiki Nicholson MD Collected: 05/01/2021 12:00 AM Ordering Location: [facility] DermPath Lab Received: 05/02/2021 01:36 PM Pathologist: Mindi Blackman MD Specimen: Skin, nasal tip 11:34 AM [facility] DERMATOPATHOLOGY LABORATORY Final Diagnosis Specimen A. SKIN, nasal tip: LENTIGINOUS MELANOCYTIC PROLIFERATION; PRESENT AT MARGIN (D48.5) (see microscopic description and comment) 11:34 AM [facility] DERMATOPATHOLOGY LABORATORY Clinical History R/O melanocytic lesion vs lentigo. 11:34 AM [facility] DERMATOPATHOLOGY LABORATORY Gross Description Specimen A: Received is one formalin filled container labeled with the patient's name and designated nasal tip. The specimen consists of a shave biopsy (2 pieces) measuring 5l4m2ww & 7t3n5wl. Jar 0. 11:34 AM [facility] DERMATOPATHOLOGY LABORATORY Microscopic Description Specimen A. SKIN, [...] Dr. Virginie Allen, who agrees. 11:34 AM [facility] DERMATOPATHOLOGY LABORATORY Disclaimer An external and internal positive and negative controls are appropriate for the histochemical, immunohistochemical and immunofluorescence stain(s) in this case (if any), except where stated explicitly. The performance characteristics of the stain(s) cited in this report were developed and its performance characteristic determined by the Dermatopathology Laboratory at [facility], directed by Dr. Azalea Peters. These tests need not be, and therefore are not, approved by the [place] Food and Drug Administration. The tests are used for clinical purposes. Billing Codes Specimen Charges Stain Charges 78472 1 05664 1 11:34 AM [facility] DERMATOPATHOLOGY LABORATORY Embedded Images 11:34 AM CDT DERMATOPATHOLOGY LABORATORY Pathology/Cytolog y TISSUE SPECIMEN FROM SKIN / Unknown 05/01/2021 05/02/2021 1:36 PM CDT Chiki Nicholson MD LAB - PATHOLOGY/CYTO LOGY ORDERABLES DERMATOPATHOLOGY LABORATORY [facility] - Department of Dermatology [facility] [address] [place] [address], [address] [phone] documented in this encounter Visit Diagnoses Not on filedocumented in this encounter Care Teams Non Categorical Preschool Teacher Relationship Specialty Start Date End Date Luis Fernando Vo MD [address] [address] PCP - General Cardiovascular Disease 06/06/21 documented as of this encounter
--- OUTSIDE RECORDS SUMMARY | 2025-01-14 10:00 | XMS_ITS | Encounter Summary ---
Author Organization [employer] Address 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
--- OUTSIDE RECORDS SUMMARY | 2025-01-14 10:00 | XMS_ITS | Encounter Summary ---
Author Organization [facility] Address [address] [place] [address] Care Team Providers Care Research Manufacturing Operator Name Role Phone Luis Fernando Vo MD Primary Care Provider +1- [phone] Encounter Details Date Type Department Care Team (Late st Contact Info) Description 04/29/2019 Lab Requisition [facility] Care DermPath Lab [address] [facility] [place] [phone] Chiki Nicholson MD [address] [place] [address] Social History Tobacco Use Types [...] AM CDT) Case Report Dermatopathology Report Case: [id number] Authorizing Provider: Chiki Nicholson MD Collected: 04/28/2019 12:00 AM Pathologist: Angelika Peters MD Received: 04/29/2019 12:36 PM Specimens: A) - Skin, vertex scalp right of midline B) - Skin, left of midline vertex scalp 5:45 PM T DERMATOPATHOLOGY LABORATORY Final Diagnosis Specimen A. SKIN, vertex scalp right of midline: HYPERPLASTIC (HYPERTROPHIC) ACTINIC KERATOSIS (L57.0) Specimen B. SKIN, left of midline vertex scalp: HYPERPLASTIC (HYPERTROPHIC) ACTINIC KERATOSIS (L57.0) 5:45 PM T DERMATOPATHOLOGY LABORATORY Clinical History A-B: R/O SCC 5:45 PM T DERMATOPATHOLOGY LABORATORY Gross Description Specimen [...] shave biopsy measuring 7x7x2 mm. Jar 0. 5:45 PM T DERMATOPATHOLOGY LABORATORY Microscopic Description Specimen A. SKIN, [...] to the lower half of the epidermis. 5:45 PM CDT DERMATOPATHOLOGY LABORATORY Disclaimer An external and internal positive and negative controls are appropriate for the histochemical, immunohistochemical and immunofluorescence stain(s) in this case (if any), except where stated explicitly. The performance characteristics of the stain(s) cited in this report were developed and its performance characteristic determined by the Dermatopathology Laboratory at [facility], directed by Dr. Azalea Peters. These tests need not be, and therefore are not, approved by the [place] Food and Drug Administration. The tests are used for clinical purposes. Billing Codes Specimen Charges Stain Charges 36862 44547 1 1 9 5:45 PM CDT DERMATOPATHOLOGY LABORATORY Embedded Images 9 5:45 PM CDT DERMATOPATHOLOGY LABORATORY Pathology/Cytology TISSUE SPECIMEN FROM SKIN / Unknown 04/28/2019 04/29/2019 12:36 PM CDT Miscellaneous samples (specimen) TISSUE SPECIMEN FROM SKIN / Unknown 04/28/2019 04/29/2019 12:36 PM CDT Chiki Nicholson MD LAB - PATHOLOGY/CYTO LOGY ORDERABLES DERMATOPATHOLOGY LABORATORY [facility] - Department of Dermatology [address] [place] [address] [address] [phone] documented in this encounter Visit Diagnoses Not on filedocumented in this encounter Care Teams Research Manufacturing Operator Relationship Specialty Start Date End Date Luis Fernando Vo MD [address] [place] [phone] PCP - General Cardiovascular Disease 06/06/21 documented as of this encounter
--- OUTSIDE RECORDS SUMMARY | 2025-01-14 10:00 | XMS_ITS | Encounter Summary ---
Author Organization [email or web address] Address 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
--- OUTSIDE RECORDS SUMMARY | 2025-01-14 10:00 | XMS_ITS | Encounter Summary ---
Author Organization [employer] Address 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
--- OUTSIDE RECORDS SUMMARY | 2025-01-14 10:00 | XMS_ITS | Encounter Summary ---
Author Organization [employer] Address 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
--- OUTSIDE RECORDS SUMMARY | 2025-01-14 10:00 | XMS_ITS | Encounter Summary ---
Author Organization [employer] Address 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
--- OUTSIDE RECORDS SUMMARY | 2025-01-14 10:00 | XMS_ITS | Encounter Summary ---
Author Organization [employer] Address 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
--- OUTSIDE RECORDS SUMMARY | 2025-01-14 10:00 | XMS_ITS | Encounter Summary ---
Author Organization [facility] Address [address] [place] [address] Care Team Providers Care Tape Sewer Name Role Phone Luis Fernando Vo MD Primary Care Provider +1- [phone] Encounter Details Date Type Department Care Team (Late st Contact Info) Description 01/13/2020 Lab Requisition [facility] Care DermPath Lab [address] [facility], [place] [phone] Chiki Nicholson MD [address] [place] [address] Social History Tobacco Use Types [...] AM CDT) Case Report Dermatopathology Report Case: [id number] Authorizing Provider: Chiki Nicholson MD Collected: 01/12/2020 12:00 AM Ordering Location: [facility] DermPath Lab Received: 01/13/2020 01:47 PM Pathologist: Ileana Sandoval MD Specimen: Skin, left lateral canthus 0 1:40 PM CDT DERMATOPATHOLOGY LABORATORY Final [...] of a shave biopsy (2 pieces) measuring [id number] & 8b5x6zq. Jar 0. 0 1:40 PM CDT DERMATOPATHOLOGY [...] characteristic determined by the Dermatopathology Laboratory at [facility], directed by Dr. Azalea Peters. These tests need not be, and therefore are not, approved by the [place] Food and Drug Administration. The tests are used for clinical purposes. Billing Codes Specimen Charges Stain Charges 16995 1 0 1:40 PM CDT DERMATOPATHOLOGY LABORATORY Embedded Images 0 1:40 PM CDT DERMATOPATHOLOGY LABORATORY Pathology/Cytolog y TISSUE SPECIMEN FROM SKIN / Unknown 01/12/2020 01/13/2020 1:47 PM CDT Chiki Nicholson MD LAB - PATHOLOGY/CYTO LOGY ORDERABLES DERMATOPATHOLOGY LABORATORY [facility] - Department of Dermatology [address] [facility], 5th Floor Lab [address] [phone] documented in this encounter Visit Diagnoses Not on filedocumented in this encounter Care Teams Tape Sewer Relationship Specialty Start Date End Date Luis Fernando Vo MD [address] [place] [address] [address] [place] [address] PCP - General Cardiovascular Disease 06/06/21 documented as of this encounter
--- OUTSIDE RECORDS SUMMARY | 2025-01-14 10:00 | XMS_ITS | Encounter Summary ---
Author Organization [employer] Address 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
--- OUTSIDE RECORDS SUMMARY | 2025-01-14 10:00 | XMS_ITS | Encounter Summary ---
Author Organization [employer] Address 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
--- OUTSIDE RECORDS SUMMARY | 2025-01-14 10:00 | XMS_ITS | Clinical Summary ---
Author Organization [facility] Address [address] [facility] [place] [address] Care Team Providers Care Plant Cytologist Name Role Phone Luis Fernando Vo MD Primary Care Provider +1- [phone] Source Comments [facility],non-owned Affiliates and Associated Physician Practices is amultiple site organization consisting of ambulatory clinics and hospital sitesin [place], [place], [place] and [place]. This disclosure is being madepursuant to the Care Everywhere program and may not contain all information available regarding this patient. Last updated 18.[facility] Allergies No known active allergies Medications * [...] (OCEAN; BABY AYR) 0.65 % nasal spray Albert Lea 2 (two) sprays into each nostril 4 [...] Due Date Last Done Comments MEDICARE AWV 12 MONTHS 1935 DTAP/TDAP/TD VACCINES (1 - Tdap) 1954 ZOSTER VACCINE (1 of 2) 1985 Respiratory Syncytial Virus (RSV) Vaccine Pt: or over 60 yrs (1 - 1-dose 75+ series) 2010 COVID-19 VACCINE ( season) 2024 08/28/2021, 12/30/2020, 12/02/2020 INFLUENZA VACCINE (#1) 2024 , 07/21/2020, 09/01/2019, Additional history exists DEPRESSION SCREENING 11/04/2024 PNEUMOCOCCAL VACCINE 50+ Completed 01/09/2016, 10/04 HEPATITIS B VACCINE Aged Out No longe r eligible based on patient's age to complete this topic HIB VACCINE Aged Out No longer eligi ble based on patient's age to complete this topic HPV VACCINE Aged Out No longer eligi ble based on patient's age to complete this topic MENINGOCOCCAL (Group B) VACCINE SHARED DECISION-MAKING Aged Out No longer eligible based on patient's age to complete this topic MENINGOCOCCAL GROUPS A/C/Y/W VACCINE Aged Out No longer eligible based on patient's age to complete this topic Care Teams Plant Cytologist Relationship Specialty Start Date End Date Luis Fernando Vo MD [address] [facility] [place] [facility] [place] [address] PCP - General Cardiovascular Disease 06/06/21
--- OUTSIDE RECORDS SUMMARY | 2025-01-14 10:00 | XMS_ITS | Encounter Summary ---
Author Organization [employer] Address 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
--- OUTSIDE RECORDS SUMMARY | 2025-01-14 10:00 | XMS_ITS | Encounter Summary ---
Author Organization [employer] Address 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
--- OUTSIDE RECORDS SUMMARY | 2025-01-14 10:00 | XMS_ITS | Encounter Summary ---
Author Organization [employer] Address 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
--- OUTSIDE RECORDS SUMMARY | 2025-01-14 10:00 | XMS_ITS | Encounter Summary ---
Author Organization [facility] Address [address] [place] [address] Care Team Providers Care User Interface Developer Name Role Phone Luis Fernando Vo MD Primary Care Provider +1- [phone] Encounter Details Date Type Department Care Team (Late st Contact Info) Description 09/24/2018 Lab Requisition [facility] Care DermPath Lab [address] [facility] [place] [phone] Chiki Nicholson MD [address] [place] [address] Social History Tobacco Use Types [...] Comments DERMATOPATHOLOGY Routine 09/23/2018 12:0 0 AM COMPLAINT INSPECTOR documented in this encounter Results * DERMATOPATHOLOGY (09/23/2018 12:00 AM COMPLAINT INSPECTOR) Case Report Dermatopathology Report Case: [id number] Authorizing Provider: Chiki Nicholson MD Collected: 09/23/2018 12:00 AM Pathologist: Mindi Blackman MD Received: 09/24/2018 12:46 PM Specimen: Skin, right post vertex 12:57 PM [facility] DERMATOPATHOLOGY LABORATORY Final Diagnosis Specimen A. 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 The specimen consists of a shave biopsy measuring [id number] mm. Jar 0. 12:57 PM [facility] DERMATOPATHOLOGY [facility]ORATORY Microscopic Description Specimen A. SKIN, right post vertex: Sections reveal parakeratosis, acanthosis and keratinocyte dysmaturation which is most prominent in the lower epidermis. Focal nests are present in the dermis.This lesion is not present at the sampled margin of the specimen. 12:57 PM [facility] DERMATOPATHOLOGY [facility]ORATORY Disclaimer An external and internal positive and negative controls are appropriate for the histochemical, immunohistochemical and immunofluorescence stain(s) in this case (if any), except where stated explicitly. The performance characteristics of the stain(s) cited in this report were developed and its performance characteristic determined by the Dermatopathology Laboratory at [facility]. These tests need not be, and therefore are not, approved by the [place] Food and Drug Administration. The tests are used for clinical purposes. Billing Codes Specimen Charges Stain Charges 16459 1 12:57 PM COMPLAINT INSPECTOR DERMATOPATHOLOGY LABORATORY Embedded Images 12:57 PM [facility] DERMATOPATHOLOGY [facility]ORY Pathology/Cytolog y TISSUE SPECIMEN FROM SKIN / Unknown 09/23/2018 09/24/2018 12:46 PM COMPLAINT INSPECTOR Chiki Nicholson MD LAB - PATHOLOGY/CYTO LOGY ORDERABLES DERMATOPATHOLOGY LABORATORY [facility] - Department of Dermatology [address] [facility], 5th Floor Lab [address] [phone] documented in this encounter Visit Diagnoses Not on filedocumented in this encounter Care Teams User Interface Developer Relationship Specialty Start Date End Date Luis Fernando Vo MD [address] [facility] [address] [place] [phone] PCP - General Cardiovascular Disease 06/06/21 documented as of this encounter
--- OUTSIDE RECORDS SUMMARY | 2025-01-14 10:00 | XMS_ITS | Referral Summary ---
Author Organization [facility] [employer] Address [address] [facility] [place] [address] Care Team Providers Care Section Repairer Name Role Phone Luis Fernando Vo MD Primary Care Provider +1- [phone] Source Comments [facility] [employer],non-owned Affiliates and Associated Physician Practices is amultiple site organization consisting of ambulatory clinics and hospital sitesin [place], [place], [place] and [place]. This disclosure is being madepursuant to the Care Everywhere program and may not contain all information available regarding this patient. Last updated 18.[facility] [employer] Allergies No known active allergies Medications * [...] (OCEAN; BABY AYR) 0.65 % nasal spray [place] 2 (two) sprays into each nostril 4 [...] of Treatment Not on file Care Teams Section Repairer Relationship Specialty Start Date End Date Luis Fernando Vo MD [address] [facility] [address] [place] [address] PCP - General Cardiovascular Disease 06/06/21
--- OUTSIDE RECORDS SUMMARY | 2025-01-14 10:00 | XMS_ITS | Encounter Summary ---
Author Organization [employer] Address 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
--- OUTSIDE RECORDS SUMMARY | 2025-01-14 10:00 | XMS_ITS | Encounter Summary ---
Author Organization [employer] Address 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
--- OUTSIDE RECORDS SUMMARY | 2025-01-14 10:00 | XMS_ITS | Clinical Summary ---
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
--- OUTSIDE RECORDS SUMMARY | 2025-01-14 10:00 | XMS_ITS | Encounter Summary ---
Author Organization [facility] Address [address] [place] [address] Care Team Providers Care Natural Sciences Manager Name Role Phone Luis Fernando Vo MD Primary Care Provider +1- [phone] Encounter Details Date Type Department Care Team (Late st Contact Info) Description 02/11/2019 Lab Requisition [facility] Care DermPath Lab [address] [facility] [place] [phone] Chiki Nicholson MD [address] [place] [address] Social History Tobacco Use Types [...] AM CDT) Case Report Dermatopathology Report Case: [id number] Authorizing Provider: Chiki Nicholson MD Collected: 02/10/2019 12:00 AM Pathologist: Angelika Peters MD Received: 02/11/2019 01:03 PM Specimen: Skin, left preauric cheek 4:18 PM [facility] DERMATOPATHOLOGY LABORATORY Final Diagnosis Specimen A. 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 Check margins. 4:18 PM [facility] DERMATOPATHOLOGY LABORATORY Gross Description Specimen A: Received is one formalin filled container labeled with the patient's name and designated left preauric cheek.The specimen consists of an ellipse measuring 41j2h0ys and is oriented with the suture/notch at [...] in cassettes 3-4. Jar 0. 4:18 PM [facility] DERMATOPATHOLOGY LABORATORY Microscopic Description Specimen [...] o'clock tip of the specimen. 4:18 PM [facility] DERMATOPATHOLOGY LABORATORY Disclaimer An external and internal positive and negative controls are appropriate for the histochemical, immunohistochemical and immunofluorescence stain(s) in this case (if any), except where stated explicitly. The performance characteristics of the stain(s) cited in this report were developed and its performance characteristic determined by the Dermatopathology Laboratory at [facility], directed by Dr. Azalea Peters. These tests need not be, and therefore are not, approved by the [place] Food and Drug Administration. The tests are used for clinical purposes. Billing Codes Specimen Charges Stain Charges 33537 1 9 4:18 PM [facility] DERMATOPATHOLOGY LABORATORY Embedded Images 9 4:18 PM [facility] DERMATOPATHOLOGY LABORATORY Pathology/Cytolog y TISSUE SPECIMEN FROM SKIN / Unknown 02/10/2019 02/11/2019 1:03 PM CDT Chiki Nicholson MD LAB - PATHOLOGY/CYTO LOGY ORDERABLES DERMATOPATHOLOGY LABORATORY [facility] - Department of Dermatology [address] [place] [address] 5th Floor Lab [address] [phone] documented in this encounter Visit Diagnoses Not on filedocumented in this encounter Care Teams Natural Sciences Manager Relationship Specialty Start Date End Date Luis Fernando Vo MD [address] [facility] [address] [place] [address] PCP - General Cardiovascular Disease 06/06/21 documented as of this encounter
--- OUTSIDE RECORDS SUMMARY | 2025-01-14 10:00 | XMS_ITS | Encounter Summary ---
Author Organization [email or web address] Address 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
--- OUTSIDE RECORDS SUMMARY | 2025-01-14 10:00 | XMS_ITS | Encounter Summary ---
Author Organization [employer] Address 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
[2025-01-14 13:37] LABS: Basophils Percent Auto 0.6 % (0.2-1.2); Eosinophils Absolute Auto 0.2 K/mm3 (0-0.3); Eosinophils Percent Auto 2.4 % (0-4.4); Hematocrit 44.2 % (42.0-52.0); Immature Granulocyte Absolute 0.03 K/mm3 (0.00-0.031); Immature Granulocyte Percent A 0.4 % (0-0.5); Lymphocytes Absolute Auto 1.82 K/mm3 (0.9-3.2); Lymphocytes Percent Auto 26.8 % (18.3-44.2); Mean Corpuscular HGB Conc 31.7 g/dl (32-36); Mean Corpuscular Volume 97.8 fl (80-100); Mean Platelet Volume 10.9 fl (7.4-10.4); Monocytes Absolute Auto 0.5 K/mm3 (0.1-0.6); Monocytes Percent Auto 7.7 % (2.6-8.5); Neutrophils Absolute Auto 4.2 K/mm3 (1.3-6.7); Neutrophils Percent Auto 62.1 % (45.5-73.1); Platelet Count Result 198 k/mm3 (150-375); Red Blood Count 4.52 M/mm3 (4.6-6.20); Red Cell Distribution Width 15.7 % (11.5-14.5); White Blood Count 6.8 K/mm3 (4.5-10.0)
[2025-01-14 13:59] LABS: Alanine Aminotransferase 22 U/L (6-50); Albumin Level 3.6 g/dL (3.5-5.1); Alkaline Phosphatase 96 U/L (38-126); Anion Gap 7 mmol/L (4-12); Aspartate Amino Transferase 59 U/L (17-59); Bilirubin,Total 0.6 mg/dL (0.2-1.3); Blood Urea Nitrogen 32 mg/dL (9-20); Calcium 9.6 mg/dL (8.4-10.2); Carbon Dioxide 27 mmol/L (22-30); Chloride 106 mmol/L (98-107); Cholesterol 113 mg/dL (0-200); Estimated Glomerular Filt Rate 51; Glucose 116 mg/dL (65-110); Potassium 4.4 mmol/L (3.4-5.0); Sodium 140 mmol/L (137-145); Triglycerides 128 mg/dL (<150)
[2025-01-14 14:03] LABS: LDL Cholesterol Direct 45 mg/dL
[2025-01-14 14:12] LABS: HDL Direct 36 mg/dL
== END 2025-01-14 09:01 | disposition home or self-care (01) ==
DX: E78.00 Pure hypercholesterolemia, unspecified (principal); I10 Essential (primary) hypertension
CPT/HCPCS: 36415; 80053; 80061; 85025

== ENCOUNTER 2025-01-15 10:09 | Outpatient (NON) | payer MEDICARE, SELFPAY ==
--- OUTSIDE RECORDS SUMMARY | 2025-01-15 10:54 | XMS_ITS | Encounter Summary ---
Author Organization [employer] Address 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
--- OUTSIDE RECORDS SUMMARY | 2025-01-15 10:54 | XMS_ITS | Referral Summary ---
Author Organization [facility] [employer] Address [address] [facility] [place] [address] Care Team Providers Care Media Specialist Name Role Phone Luis Fernando Vo MD Primary Care Provider +1- [phone] Source Comments [facility] [employer],non-owned Affiliates and Associated Physician Practices is amultiple site organization consisting of ambulatory clinics and hospital sitesin [place], [place], [place] and [place]. This disclosure is being madepursuant to the Care Everywhere program and may not contain all information available regarding this patient. Last updated 18.[facility] [employer] Allergies No known active allergies Medications * [...] (OCEAN; BABY AYR) 0.65 % nasal spray [place] 2 (two) sprays into each nostril 4 [...] of Treatment Not on file Care Teams Media Specialist Relationship Specialty Start Date End Date Luis Fernando Vo MD [address] [facility] [address] [place] [address] PCP - General Cardiovascular Disease 06/06/21
--- OUTSIDE RECORDS SUMMARY | 2025-01-15 10:54 | XMS_ITS | Encounter Summary ---
Author Organization [employer] Address [address] [place] [address] Care Team Providers Care Farm Tractor Mechanic Name Role Phone Luis Fernando Vo MD Primary Care Provider +1- [phone] Encounter Details Date Type Department Care Team (Late st Contact Info) Description 06/08/1999 Outpatient Historical [facility] Maynor Vitale MD [address] [place] [address] Social History Tobacco Use Types Packs/Day Years Used Date Smoking Tobacco: Never Assessed Sex and Gender Information Value Date Recorded Sex Assigned at Not on file Legal Sex Male 3:59 AM PROCUREMENT AGENT Gender Identity Not on file Sexual Orientation Not on file documented as of this encounter Plan of Treatment Not on file documented as of this encounter Visit Diagnoses Not on filedocumented in this encounter Care Teams Farm Tractor Mechanic Relationship Specialty Start Date End Date Luis Fernando Vo MD [address] [place] [address] PCP - General Interventional Cardiology 01/31/12 documented as of this encounter
--- OUTSIDE RECORDS SUMMARY | 2025-01-15 10:54 | XMS_ITS | Encounter Summary ---
Author Organization [employer] Address 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
--- OUTSIDE RECORDS SUMMARY | 2025-01-15 10:54 | XMS_ITS | Clinical Summary ---
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
--- OUTSIDE RECORDS SUMMARY | 2025-01-15 10:54 | XMS_ITS | Encounter Summary ---
Author Organization [employer] Address 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
--- OUTSIDE RECORDS SUMMARY | 2025-01-15 10:54 | XMS_ITS | Encounter Summary ---
Author Organization [employer] Address 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
--- OUTSIDE RECORDS SUMMARY | 2025-01-15 10:54 | XMS_ITS | Encounter Summary ---
Author Organization [employer] Address [address] [place] [address] Care Team Providers Care Gold Miner Name Role Phone Luis Fernando Vo MD Primary Care Provider +1- [phone] Encounter Details Date Type Department Care Team (Late st Contact Info) Description 08/09/1999 Outpatient Historical [facility] Maynor Vitale MD [address] [place] [address] Social History Tobacco Use Types Packs/Day Years Used Date Smoking Tobacco: Never Assessed Sex and Gender Information Value Date Recorded Sex Assigned at Not on file Legal Sex Male 3:[address]PRETER Gender Identity Not on file Sexual Orientation Not on file documented as of this encounter Plan of Treatment Not on file documented as of this encounter Visit Diagnoses Not on filedocumented in this encounter Care Teams Gold Miner Relationship Specialty Start Date End Date Luis Fernando Vo MD [address] [place] [address] PCP - General Interventional Cardiology 01/31/12 documented as of this encounter
--- OUTSIDE RECORDS SUMMARY | 2025-01-15 10:54 | XMS_ITS | Clinical Summary ---
Author Organization [facility] [employer] Address [address] [facility] [place] [address] Care Team Providers Care Receipt And Report Clerk Name Role Phone Luis Fernando Vo MD Primary Care Provider +1- [phone] Source Comments [facility] [employer],non-owned Affiliates and Associated Physician Practices is amultiple site organization consisting of ambulatory clinics and hospital sitesin [place], [place], [place] and [place]. This disclosure is being madepursuant to the Care Everywhere program and may not contain all information available regarding this patient. Last updated 18.[facility] [employer] Allergies No known active allergies Medications * [...] (OCEAN; BABY AYR) 0.65 % nasal spray [place] 2 (two) sprays into each nostril 4 [...] age to complete this topic Care Teams Receipt And Report Clerk Relationship Specialty Start Date End Date Luis Fernando Vo MD [address] [facility] [address] [facility] [place] [address] PCP - General Cardiovascular Disease 06/06/21
--- OUTSIDE RECORDS SUMMARY | 2025-01-15 10:54 | XMS_ITS | Encounter Summary ---
Author Organization [employer] Address 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
--- OUTSIDE RECORDS SUMMARY | 2025-01-15 10:54 | XMS_ITS | Encounter Summary ---
Author Organization [employer] Address 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
--- OUTSIDE RECORDS SUMMARY | 2025-01-15 10:54 | XMS_ITS | Encounter Summary ---
Author Organization [facility] Address [address] [place] [address] Care Team Providers Care Exam Proctor Name Role Phone Luis Fernando Vo MD Primary Care Provider +1- [phone] Encounter Details Date Type Department Care Team (Late st Contact Info) Description 02/06/2023 Lab Requisition [facility] [address] [facility], [place] [address] Chiki Nicholson MD [address] [place] [address] Social History Tobacco Use Types [...] AM CDT) Case Report Dermatopathology Report Case: [id number] Authorizing Provider: Chiki Nicholson MD Collected: 02/05/2023 03:33 AM Ordering Location: [facility] DermPath Lab Received: 02/06/2023 02:23 PM Pathologist: [...] specimen consists of a shave biopsy measuring 30j95u6 mm. Jar 0. Specimen B: Received is one formalin filled container labeled with the patient's name and designated dorsal right prox forearm. The specimen consists of a shave biopsy measuring 04j71q6 mm. Jar 0. 3:46 PM CDT DERMATOPATHOLOGY [...] by the Dermatopathology Laboratory at [facility], directed by Dr. Azalea Peters. These tests need not be, and therefore are not, approved by the [place] Food and Drug Administration. The tests are used for clinical purposes. Billing Codes Specimen Charges Stain Charges 11789 99593 1 1 3 3:46 PM CDT DERMATOPATHOLOGY LABORATORY Embedded Images 3 3:46 PM CDT DERMATOPATHOLOGY LABORATORY Pathology/Cytology TISSUE SPECIMEN FROM SKIN / Unknown 02/05/2023 3:33 AM CDT 02/06/2023 2:23 PM CDT Miscellaneous samples (specimen) TISSUE SPECIMEN FROM SKIN / Unknown 02/05/2023 3:33 AM CDT 02/06/2023 2:23 PM CDT Chiki Nicholson MD LAB - PATHOLOGY/CYTO LOGY ORDERABLES DERMATOPATHOLOGY LABORATORY [facility] - Department of Dermatology [facility] Medicine [address] [place] [address], [address] [phone] documented in this encounter Visit Diagnoses Not on filedocumented in this encounter Care Teams Exam Proctor Relationship Specialty Start Date End Date Luis Fernando Vo MD [address] [place] [address] [address] [place] [phone] PCP - General Cardiovascular Disease 06/06/21 documented as of this encounter
--- OUTSIDE RECORDS SUMMARY | 2025-01-15 10:54 | XMS_ITS | Encounter Summary ---
Author Organization [facility] Address [address] [place] [address] Care Team Providers Care Baked And Graphite Inspector Name Role Phone Luis Fernando Vo MD Primary Care Provider +1- [phone] Encounter Details Date Type Department Care Team (Late st Contact Info) Description 01/13/2020 Lab Requisition [facility] Care D[facility] Lab [address] [facility], [place] [phone] Chiki Nicholson MD [address] [place] [address] Social History Tobacco Use Types [...] AM CDT) Case Report Dermatopathology Report Case: [id number] Authorizing Provider: Chiki Nicholson MD Collected: 01/12/2020 12:00 AM Ordering Location: [facility] DermPath Lab Received: 01/13/2020 01:47 [...] of a shave biopsy (2 pieces) measuring [id number] & 8t3g6ck. Jar 0. 0 1:40 PM CDT DERMATOPATHOLOGY [...] characteristic determined by the Dermatopathology Laboratory at [facility], directed by Dr. Azalea Peters. These tests need not be, and therefore are not, approved by the [place] Food and Drug Administration. The tests are used for clinical purposes. Billing Codes Specimen Charges Stain Charges [id number] 1 0 1:40 PM CDT DERMATOPATHOLOGY LABORATORY Embedded Images 0 1:40 PM CDT DERMATOPATHOLOGY LABORATORY Pathology/Cytolog y TISSUE SPECIMEN FROM SKIN / Unknown 01/12/2020 01/13/2020 1:47 PM CDT Chiki Nicholson MD LAB - PATHOLOGY/CYTO LOGY ORDERABLES DERMATOPATHOLOGY LABORATORY [facility] - Department of Dermatology [address] [facility], 5th Floor Lab [address] [phone] documented in this encounter Visit Diagnoses Not on filedocumented in this encounter Care Teams Baked And Graphite Inspector Relationship Specialty Start Date End Date Luis Fernando Vo MD [address] [place] [address] [address] [place] [address] PCP - General Cardiovascular Disease 06/06/21 documented as of this encounter
--- OUTSIDE RECORDS SUMMARY | 2025-01-15 10:54 | XMS_ITS | Encounter Summary ---
Author Organization [facility] Address [address] [place] [address] Care Team Providers Care District Fire Chief Name Role Phone Luis Fernando Vo MD Primary Care Provider +1- [phone] Encounter Details Date Type Department Care Team (Late st Contact Info) Description 04/29/2019 Lab Requisition [facility] Care DermPath Lab [address] [facility], [place] [phone] Chiki Nicholson MD [address] [place] [address] Social History Tobacco Use Types [...] AM CDT) Case Report Dermatopathology Report Case: [id number] Authorizing Provider: Chiki Nicholson MD Collected: 04/28/2019 [...] characteristic determined by the Dermatopathology Laboratory at [facility], directed by Dr. Azalea Peters. These tests need not be, and therefore are not, approved by the [place] Food and Drug Administration. The tests are used for clinical purposes. Billing Codes Specimen Charges Stain Charges 50327 66080 1 1 9 5:45 PM CDT DERMATOPATHOLOGY LABORATORY Embedded Images 9 5:45 PM CDT DERMATOPATHOLOGY LABORATORY Pathology/Cytology TISSUE SPECIMEN FROM SKIN / Unknown 04/28/2019 04/29/2019 12:36 PM CDT Miscellaneous samples (specimen) TISSUE SPECIMEN FROM SKIN / Unknown 04/28/2019 04/29/2019 12:36 PM CDT Chiki Nicholson MD LAB - PATHOLOGY/CYTO LOGY ORDERABLES DERMATOPATHOLOGY LABORATORY [facility] - Department of Dermatology [address] [place] [address] [address] [phone] documented in this encounter Visit Diagnoses Not on filedocumented in this encounter Care Teams District Fire Chief Relationship Specialty Start Date End Date Luis Fernando Vo MD [address] [place] [phone] PCP - General Cardiovascular Disease 06/06/21 documented as of this encounter
--- OUTSIDE RECORDS SUMMARY | 2025-01-15 10:54 | XMS_ITS | Encounter Summary ---
Author Organization [employer] Address 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
--- OUTSIDE RECORDS SUMMARY | 2025-01-15 10:54 | XMS_ITS | Encounter Summary ---
Author Organization [employer] Address 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
--- OUTSIDE RECORDS SUMMARY | 2025-01-15 10:54 | XMS_ITS | Encounter Summary ---
Author Organization [employer] Address 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
--- OUTSIDE RECORDS SUMMARY | 2025-01-15 10:54 | XMS_ITS | Patient Health Summary ---
Author Organization [facility] Address [address] [facility] [place] [address] Care Team Providers Care Information Systems Audit Manager Name Role Phone Luis Fernando Vo MD Primary Care Provider +1- [phone] Note from [facility],non-owned Affiliates and Associated Physician Practices is amultiple site organization consisting of ambulatory clinics and hospital sitesin [place], [place], [place] and [place]. This disclosure is being madepursuant to the Care Everywhere program and may not contain all information available regarding this patient. Last updated 18.[facility] Allergies No known active allergies [...] BABY AYR) 0.65 % nasal spray(Started 07/05/2021) Chambers 2 (two) sprays into each nostril 4 [...] is included. Case Report Dermatopathology Report Case: [id number] Authorizing Provider: Chiki Nicholson MD Collected: 08/20/2023 12:00 AM Ordering Location: [facility] DermPath Lab Received: 08/21/2023 01:57 PM Pathologist: [...] specimen consists of a shave biopsy measuring [id number] mm. Jar 0. 3:43 PM CDT DERMATOPATHOLOGY [...] purposes. Billing Codes Specimen Charges Stain Charges 31880 1 3:43 PM CDT DERMATOPATHOLOGY LABORATORY Embedded Images 3:43 PM CDT DERMATOPATHOLOGY LABORATORY Pathology/Cytolog y TISSUE SPECIMEN FROM SKIN / Unknown 08/20/2023 08/21/2023 1:57 PM CDT Chiki Nicholson MD LAB - PATHOLOGY/CYTO LOGY ORDERABLES DERMATOPATHOLOGY LABORATORY [facility] - Department of Dermatology [address], [address] [phone] * CARDIAC EKG ORDER (07/07/2021 1:08 PM CDT) Narrative 07/07/2021 1:08 PM CDT Ordered by an unspecified provider. Scanned Document CARDIAC SERVICES ORD ERABLES * PATHOLOGY TISSUE (07/05/2021 10:01 AM CDT) Case Report Surgical Pathology Report Case: [id number] Authorizing Provider: Cresencio Sotelo MD Collected: 07/05/2021 10:01 AM Ordering Location: [facility] OP Received: 07/05/2021 01:32 PM Pathologist: Macie Vo MD Specimen: Skin, COMPLETION RESECTION NASAL TIP (LONG STITCH TOWARDS DORSUM, SHORT STITCH TOWARDS ALA) 07/19/2021 10:[address] [facility] PATHOLOGY LAB Final Diagnosis Skin, nasal tip, long stitch dorsum, short stitch ala, oriented completion resection (A): - Melanocytic hyperplasia without atypia, associated with scar; all margins free of melanocytic hyperplasia (see description) 07/19/2021 10:[address] [facility] PATHOLOGY LAB Microscopic Description and Comment [...] (A2, A3, A4; controls stained appropriately). No dqwvfrxg-ck-fceg or melanoma is seen. The melanocytic hyperplasia is 6 mm from the 12:00 margin, 2 mm from the 3:00 margin, 1 mm from the 6:00 margin, and 2 mm from the 9:00 margin, measured using the MART1/MelanA and H and E stains. The 3:00 tip has scar. The dermis has marked solar elastosis. 07/19/2021 10:[address] [facility] PATHOLOGY LAB Clinical History The patient is an 85-year-old male with a history of melanoma first diagnosed in 2016 status post staged excision. Patient was referred for slow-Mohs technique ([id number], 06/20/21; [id number], 06/29/21) with final margins negative for lentiginous qvcmhsjh-ef-rdow. The current procedure is for reconstruction. 07/19/2021 10:[address] [facility] PATHOLOGY LAB Gross Description The requisition [...] perp. CP 07/19/2021 10:[address] [facility] PATHOLOGY LAB Disclaimer The performance characteristics of all immunohistochemical and indirect immunofluorescence stains (if any) cited in this report were determined by the Histopathology Laboratory of [facility]. Some of these tests were [...] (teaching) pathologist. 07/19/2021 10:[address] [facility] PATHOLOGY LAB Embedded Images 07/19/2021 10:[address] [facility] PATHOLOGY LAB Biopsy, Excision TISSUE SPECIMEN FROM SKIN / Unknown 07/05/2021 10:01 AM CDT 07/05/2021 1:32 PM CDT Comment:Pre-op diagnosis: MELANOCYTIC NEOPLASM Cresencio Sotelo MD LAB - PATHOLOGY/CYTO LOGY ORDERABLES [facility] PATHOLOGY LAB Leodan [facility] [place] [address], [facility] [phone] * ETT LINE PERFORMABLE (07/05/2021 9:38 AM CDT) Rosaline Gastelum APRN-CRNA - 07/05/2021 9:38 AM CDT Rosaline Willingham APRN-CRNA 07/05/2021 9:39 AM Endotracheal Tube Placement: Patient Location: OR. Procedure: intubation (38191). Procedure Section: Sedation: under general anesthesia. Indications [...] Sotelo MD Primary Surgeon: Charles Sotelo MD Automated Access Systems Technician: Marlin Margins positive on previous stage: 12-3 [...] pending histopathologic review. Nina Isaac MD,MPH [facility] Dermatology Resident, PGY-3 Charles Sotelo MD [...] path pending Primary Surgeon: Charles Sotelo MD Automated Access Systems Technician: Tate INDICATIONS: The risks of bleeding, infection, [...] report. I entered the information in our [email or web address] DocFlowsheet with the information provided by Dr. [...] CDT) Antibody Screen NEG 11:14 AM CDT [facility] BLOOD BANK LAB ABO Rh O POS 06/15/2021 11:14 AM CDT [facility] BLOOD BANK LAB Blood Bank BLOOD SPECIMEN / Unknown Lab Venipuncture / Unknown 06/15/2021 10:10 AM CDT 06/15/2021 10:20 AM CDT Paris Epstein DO LAB - BLOOD BANK O RDERABLES [facility] BLOOD BANK LAB [address] [place] [address], [facility] [phone] * CBC W/O DIFFERENTIAL (06/15/2021 10:10 AM CDT) WBC 7.6 3.5 - 10.5 10 3/uL 06/15/2021 10:28 AM [facility] RBC 5.48 4.30 - 5.70 10 6/uL 06/15/2021 10:28 AM [facility] Hemoglobin 16.2 12.0 - 17.6 g/dL 06/15/2021 10:28 AM [facility] Hematocrit 48.4 35.2 - 51.7 % 06/15/2021 10:28 AM [facility] MCV 88.3 80.7 - 98.3 fL 06/15/2021 10:28 AM [facility] MCH 29.6 26.7 - 34.0 pg 06/15/2021 10:28 AM [facility] MCHC 33.5 30.8 - 35.9 g/dL 06/15/2021 10:28 AM [facility] Platelet Count 177 150 - 400 10 3/uL 06/15/2021 10:28 AM [facility] RDW-SD 42.3 36.0 - 50.0 fL 06/15/2021 10:28 AM [facility] RDW-CV 13.1 11.2 - 14.8 % 06/15/2021 10:28 AM [facility] MPV 10.4 9.4 - 12.9 fL 06/15/2021 10:28 AM [facility] nRBC Absolute 0.00 0 10 3/uL 06/15/2021 10:28 AM [facility] nRBC Auto 0.0 0 /100 WBC 06/15/2021 10:28 AM [facility] Blood BLOOD SPECIMEN / Unknown Lab Venipuncture / Unknown 06/15/2021 10:10 AM CDT 06/15/2021 10:20 AM T Paris Epstein DO LAB - HEMATOLOGY O RDERABLES Performing Organization Address City/State/[facility] Co de Phone Number [facility] [address] [place] [address], [facility] [phone] * (ABNORMAL) BASIC METABOLIC PANEL (CALCIUM TOTAL) (06/15/2021 10:10 AM CDT) BUN 19 7 - 26 mg/dL 06/15/2021 10:49 AM [facility] Creatinine 1.54(H) 0.71 - 1.16 mg/dL 06/15/2021 10:49 AM [facility] Sodium 141 136 - 145 mmol/L 06/15/2021 10:49 AM [facility] Potassium 4.3 3.5 - 4.5 mmol/L 06/15/2021 10:49 AM [facility] Chloride 106 98 - 107 mmol/L 06/15/2021 10:49 AM [facility] CO2 26 22 - 29 mmol/L 06/15/2021 10:49 AM [facility] Glucose 110 70 - 115 mg/dL 06/15/2021 10:49 AM [facility] Calcium 9.7 8.4 - 10.2 mg/dL 06/15/2021 10:49 AM [facility] Anion Gap 13 8 - 18 06/15/2021 10:49 AM CDT [facility] BUN/Creatinine Ratio 12 7 - 23 06/15/2021 10:49 AM CDT [facility] Osmolality Calculated 295 270 - 300 mOsm/kg 06/15/2021 10:49 AM CDT [facility] eGFR by CKD-EPI 41(L) >=90 mL/min/1.7 3 m2 06/15/2021 10:49 AM CDT [facility] Blood BLOOD SPECIMEN / Unknown Lab Venipuncture / Unknown 06/15/2021 10:10 AM CDT 06/15/2021 10:19 AM CDT Paris Epstein DO LAB - CHEMISTRY OR DERABLES [facility] [address] [place] [address], [facility] [phone] * EKG 12-LEAD (06/15/2021 9:17 AM CDT) Ventricular Rate 83 BPM SL MUSE Atrial Rate 83 BPM [facility] MUSE P-R Interval 182 ms [facility] MUSE QRS Duration ms 102 ms [facility] MUSE Q-T Interval ms 396 ms [facility] MUSE QTC Calculation (Bezet) 465 ms [facility] MUSE Calculated P Scio 62 degrees SL MUSE Calculated R Scio -28 degrees [facility] MUSE Calculated T Scio 90 degrees [facility] MUSE Interpretation EKG NORMAL SINUS RHYTHM POOR R WAVE PROGRESSION ABNORMAL ECG NO PREVIOUS ECGS AVAILABLE Confirmed by fellow Lc Klein ([id number]) on 06/15/2021 3:10:15 PM Confirmed by Jone Summers ([id number]) on 06/17/2021 12:09:27 AM [facility] MUSE 06/15/2021 9:17 AM CDT 06/17/2021 12:09 AM CDT Paris Epstein DO ECG ORDERABLES Performing Organization Address City/[facility]/ZIP Co de Phone Number [facility] MUSE * PATHOLOGY/GENETICS HISTORICAL-ONBASE (03/29/2016) Only the most recent of8 resultswithin the time period is included. 03/29/2016 Narrative [facility] - 04/19/2016 2:18 PM CDT Historical Provider LAB - CHEMISTRY O RDERABLES [facility] [address] [place] [address], [facility] Care Teams Information Systems Audit Manager Relationship Specialty Start Date End Date Luis Fernando Vo MD [address] [facility] [address] [place] [address] PCP - General Cardiovascular Disease 06/06/21
--- OUTSIDE RECORDS SUMMARY | 2025-01-15 10:54 | XMS_ITS | Encounter Summary ---
Author Organization [email or web address] Address 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
--- OUTSIDE RECORDS SUMMARY | 2025-01-15 10:54 | XMS_ITS | Encounter Summary ---
Author Organization [employer] Address 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
--- OUTSIDE RECORDS SUMMARY | 2025-01-15 10:54 | XMS_ITS | Encounter Summary ---
Author Organization [facility] Address [address] [place] [address] Care Team Providers Care Stone Driller Helper Name Role Phone Luis Fernando Vo MD Primary Care Provider +1- [phone] Encounter Details Date Type Department Care Team (Late st Contact Info) Description 01/21/2019 Lab Requisition [facility] Care DermPath Lab [address] [facility], [place] [phone] Chiki Nicholson MD [address] [place] [address] Social History Tobacco Use Types [...] AM CDT) Case Report Dermatopathology Report Case: [id number] Authorizing Provider: Chiki Nicholson MD Collected: 01/20/2019 [...] of a shave biopsy (2 pieces) measuring 2g9c0fs, bisected, & 6t5s0yq. Jar 0. 3:28 PM CDT DERMATOPATHOLOGY LABORATORY [...] purposes. Billing Codes Specimen Charges Stain Charges 06663 1 3:28 PM CDT DERMATOPATHOLOGY LABORATORY Embedded Images 3:28 PM CDT DERMATOPATHOLOGY LABORATORY Pathology/Cytolog y TISSUE SPECIMEN FROM SKIN / Unknown 01/20/2019 01/21/2019 11:27 AM CDT Chiki Nicholson MD LAB - PATHOLOGY/CYTO LOGY ORDERABLES DERMATOPATHOLOGY LABORATORY [facility] - Department of Dermatology [address] [facility], 5th Floor Lab [address] [phone] documented in this encounter Visit Diagnoses Not on filedocumented in this encounter Care Teams Stone Driller Helper Relationship Specialty Start Date End Date Luis Fernando Vo MD [address] [facility] [address] [place] [address] PCP - General Cardiovascular Disease 06/06/21 documented as of this encounter
--- OUTSIDE RECORDS SUMMARY | 2025-01-15 10:54 | XMS_ITS | Encounter Summary ---
Author Organization [facility] Address [address] [place] [address] Care Team Providers Care Irrigation Equipment Installer Name Role Phone Luis Fernando Vo MD Primary Care Provider +1- [phone] Encounter Details Date Type Department Care Team (Late st Contact Info) Description 05/02/2021 Lab Requisition [facility] Care DermPath Lab [address] [facility], [place] [phone] Chiki Nicholson MD [address] [place] [address] Social History Tobacco Use Types [...] AM CDT) Case Report Dermatopathology Report Case: [id number] Authorizing Provider: Chiki Nicholson MD Collected: 05/01/2021 12:00 AM Ordering Location: [facility] DermPath Lab Received: 05/02/2021 01:36 PM Pathologist: Mindi Blackman MD Specimen: Skin, nasal tip 11:34 AM [facility] DERMATOPATHOLOGY LABORATORY Final Diagnosis Specimen A. SKIN, nasal tip: LENTIGINOUS MELANOCYTIC PROLIFERATION; PRESENT AT MARGIN (D48.5) (see microscopic description and comment) 11:34 AM [facility] DERMATOPATHOLOGY LABORATORY Clinical History R/O melanocytic lesion vs lentigo. 11:34 AM [facility] DERMATOPATHOLOGY LABORATORY Gross Description Specimen A: Received is one formalin filled container labeled with the patient's name and designated nasal tip. The specimen consists of a shave biopsy (2 pieces) measuring 7h5p3xo & 9m0s0gg. Jar 0. 11:34 AM [facility] DERMATOPATHOLOGY LABORATORY Microscopic Description Specimen A. SKIN, [...] Dr. Virginie Allen, who agrees. 11:34 AM [facility] DERMATOPATHOLOGY LABORATORY Disclaimer An external and internal positive and negative controls are appropriate for the histochemical, immunohistochemical and immunofluorescence stain(s) in this case (if any), except where stated explicitly. The performance characteristics of the stain(s) cited in this report were developed and its performance characteristic determined by the Dermatopathology Laboratory at [facility], directed by Dr. Azalea Peters. These tests need not be, and therefore are not, approved by the [place] Food and Drug Administration. The tests are used for clinical purposes. Billing Codes Specimen Charges Stain Charges 24236 1 06338 1 11:34 AM [facility] DERMATOPATHOLOGY LABORATORY Embedded Images 11:34 AM CDT DERMATOPATHOLOGY LABORATORY Pathology/Cytolog y TISSUE SPECIMEN FROM SKIN / Unknown 05/01/2021 05/02/2021 1:36 PM CDT Chiki Nicholson MD LAB - PATHOLOGY/CYTO LOGY ORDERABLES DERMATOPATHOLOGY LABORATORY [facility] - Department of Dermatology [facility] [address] [place] [address], [address] [phone] documented in this encounter Visit Diagnoses Not on filedocumented in this encounter Care Teams Irrigation Equipment Installer Relationship Specialty Start Date End Date Luis Fernando Vo MD [address] [address] PCP - General Cardiovascular Disease 06/06/21 documented as of this encounter
--- OUTSIDE RECORDS SUMMARY | 2025-01-15 10:54 | XMS_ITS | Encounter Summary ---
Author Organization [employer] Address 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
--- OUTSIDE RECORDS SUMMARY | 2025-01-15 10:54 | XMS_ITS | Encounter Summary ---
Author Organization [facility] Address [address] [place] [address] Care Team Providers Care Sales Attendant Building Materials Name Role Phone Luis Fernando Vo MD Primary Care Provider +1- [phone] Encounter Details Date Type Department Care Team (Late st Contact Info) Description 08/21/2023 Lab Requisition [facility] - DermPath Lab [address] [place] [address] Chiki Nicholson MD [address] [place] [address] Social History Tobacco Use Types [...] AM CDT) Case Report Dermatopathology Report Case: [id number] Authorizing Provider: Chiki Nicholson MD Collected: 08/20/2023 12:00 AM Ordering Location: [facility] DermPath Lab Received: 08/21/2023 01:57 PM Pathologist: [...] specimen consists of a shave biopsy measuring 86s90s7 mm. Jar 0. 3:43 PM CDT DERMATOPATHOLOGY [...] determined by the Dermatopathology Laboratory at [facility], directed by Dr. Azalea Peters. These tests need not be, and therefore are not, approved by the [place] Food and Drug Administration. The tests are used for clinical purposes. Billing Codes Specimen Charges Stain Charges 24635 1 3:43 PM CDT DERMATOPATHOLOGY LABORATORY Embedded Images 3:43 PM CDT DERMATOPATHOLOGY LABORATORY Pathology/Cytolog y TISSUE SPECIMEN FROM SKIN / Unknown 08/20/2023 08/21/2023 1:57 PM CDT Chiki Nicholson MD LAB - PATHOLOGY/CYTO LOGY ORDERABLES DERMATOPATHOLOGY LABORATORY [facility] - Department of Dermatology [facility] Medicine [address] [place] [address], [address] [phone] documented in this encounter Visit Diagnoses Not on filedocumented in this encounter Care Teams Sales Attendant Building Materials Relationship Specialty Start Date End Date Luis Fernando Vo MD [address] [place] [address] [place] [phone] PCP - General Cardiovascular Disease 06/06/21 documented as of this encounter
--- OUTSIDE RECORDS SUMMARY | 2025-01-15 10:54 | XMS_ITS | Encounter Summary ---
Author Organization [employer] Address 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
--- OUTSIDE RECORDS SUMMARY | 2025-01-15 10:54 | XMS_ITS | Encounter Summary ---
Author Organization [facility] Address [address] [place] [address] Care Team Providers Care Integrated Logistics Support Manager Name Role Phone Luis Fernando Vo MD Primary Care Provider +1- [phone] Encounter Details Date Type Department Care Team (Late st Contact Info) Description 09/24/2018 Lab Requisition [facility] Care DermPath Lab [address] [facility], [place] [address] Chiki Nicholson MD [address] [place] [address] Social History Tobacco Use Types [...] Comments DERMATOPATHOLOGY Routine 09/23/2018 12:0 0 AM DRIVER EXAMINER documented in this encounter Results * DERMATOPATHOLOGY (09/23/2018 12:00 AM DRIVER EXAMINER) Case Report Dermatopathology Report Case: [id number] Authorizing Provider: Chiki Nicholson MD Collected: 09/23/2018 12:00 AM Pathologist: Mindi Blackmna MD Received: 09/24/2018 12:46 PM Specimen: Skin, right post vertex 12:57 PM [facility] DERMATOPATHOLOGY LABORATORY Final Diagnosis Specimen A. 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 The specimen consists of a shave biopsy measuring 75k11c5 mm. Jar 0. 12:57 PM [facility] DERMATOPATHOLOGY LABORATORY Microscopic Description Specimen A. SKIN, right post vertex: Sections reveal parakeratosis, acanthosis and keratinocyte dysmaturation which is most prominent in the lower epidermis. Focal nests are present in the dermis.This lesion is not present at the sampled margin of the specimen. 12:57 PM [facility] DERMATOPATHOLOGY LABORATORY Disclaimer An external and internal positive and negative controls are appropriate for the histochemical, immunohistochemical and immunofluorescence stain(s) in this case (if any), except where stated explicitly. The performance characteristics of the stain(s) cited in this report were developed and its performance characteristic determined by the Dermatopathology Laboratory at [facility]. These tests need not be, and therefore are not, approved by the [place] Food and Drug Administration. The tests are used for clinical purposes. Billing Codes Specimen Charges Stain Charges 96980 1 12:57 PM DRIVER EXAMINER DERMATOPATHOLOGY LABORATORY Embedded Images 12:57 PM [facility] DERMATOPATHOLOGY LABORATORY Pathology/Cytolog y TISSUE SPECIMEN FROM SKIN / Unknown 09/23/2018 09/24/2018 12:46 PM DRIVER EXAMINER Chiki Nicholson MD LAB - PATHOLOGY/CYTO LOGY ORDERABLES DERMATOPATHOLOGY LABORATORY [facility] - Department of Dermatology [address] [facility], 5th Floor Lab [address] [phone] documented in this encounter Visit Diagnoses Not on filedocumented in this encounter Care Teams Integrated Logistics Support Manager Relationship Specialty Start Date End Date Luis Fernando Vo MD [address] [facility] [address] [place] [phone] PCP - General Cardiovascular Disease 06/06/21 documented as of this encounter
--- OUTSIDE RECORDS SUMMARY | 2025-01-15 10:54 | XMS_ITS | Clinical Summary ---
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
--- OUTSIDE RECORDS SUMMARY | 2025-01-15 10:54 | XMS_ITS | Encounter Summary ---
Author Organization [employer] Address 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
--- OUTSIDE RECORDS SUMMARY | 2025-01-15 10:54 | XMS_ITS | Encounter Summary ---
Author Organization [employer] Address 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
--- OUTSIDE RECORDS SUMMARY | 2025-01-15 10:54 | XMS_ITS | Encounter Summary ---
Author Organization [facility] Address [address] [place] [address] Care Team Providers Care Tapper Shank Name Role Phone Luis Fernando Vo MD Primary Care Provider +1- [phone] Encounter Details Date Type Department Care Team (Late st Contact Info) Description 02/11/2019 Lab Requisition [facility] Care DermPath Lab [address] [facility], [place] [phone] Chiki Nicholson MD [address] [place] [address] Social History Tobacco Use Types [...] AM CDT) Case Report Dermatopathology Report Case: [id number] Authorizing Provider: Chiki Nicholson MD Collected: 02/10/2019 12:00 AM Pathologist: Angelika Peters MD Received: 02/11/2019 01:03 PM Specimen: Skin, left preauric cheek 4:18 PM [facility] DERMATOPATHOLOGY LABORATORY Final Diagnosis Specimen A. 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 DERMATOPATHOLOGY LABORATORY Clinical History R/O Bx proven SCC, ancantholytic type. Check margins. 4:18 PM [facility] DERMATOPATHOLOGY LABORATORY Gross Description Specimen A: Received is one formalin filled container labeled with the patient's name and designated left preauric cheek.The specimen consists of an ellipse measuring 17b1a1za and is oriented with the suture/notch at [...] in cassettes 3-4. Jar 0. 4:18 PM [facility] DERMATOPATHOLOGY LABORATORY Microscopic Description Specimen A. [...] o'clock tip of the specimen. 4:18 PM [facility] DERMATOPATHOLOGY LABORATORY Disclaimer An external and internal positive and negative controls are appropriate for the histochemical, immunohistochemical and immunofluorescence stain(s) in this case (if any), except where stated explicitly. The performance characteristics of the stain(s) cited in this report were developed and its performance characteristic determined by the Dermatopathology Laboratory at [facility], directed by Dr. Azalea Peters. These tests need not be, and therefore are not, approved by the [place] Food and Drug Administration. The tests are used for clinical purposes. Billing Codes Specimen Charges Stain Charges 29808 1 9 4:18 PM CDT DERMATOPATHOLOGY LABORATORY Embedded Images 9 4:18 PM CDT DERMATOPATHOLOGY LABORATORY Pathology/Cytolog y TISSUE SPECIMEN FROM SKIN / Unknown 02/10/2019 02/11/2019 1:03 PM CDT Chiki Nicholson MD LAB - PATHOLOGY/CYTO LOGY ORDERABLES DERMATOPATHOLOGY LABORATORY [facility] - Department of Dermatology [address] [place] [address] 5th Floor Lab [address] [phone] documented in this encounter Visit Diagnoses Not on filedocumented in this encounter Care Teams Tapper Shank Relationship Specialty Start Date End Date Luis Fernando Vo MD [address] [facility] [address] [place] [phone] PCP - General Cardiovascular Disease 06/06/21 documented as of this encounter
--- OUTSIDE RECORDS SUMMARY | 2025-01-15 10:55 | XMS_ITS | Encounter Summary ---
Author Organization [employer] Address 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
--- OUTSIDE RECORDS SUMMARY | 2025-01-15 10:55 | XMS_ITS | Continuity of Care Document ---
Author Organization [facility] Address [address] [place] [address] [place] [address] Phone Care Team Providers Care Rectifying Operator Name Role Phone Anita Sotelo Unavailable [...] Diagnoses Date Provider Providers Copied on Encounter Formerly [facility], [address] [place] [address] [address], [place], [place], [id number], tel:[phone] [facility] No Information 4-201 0 Ashleigh Hamilton [address] , [address], [place], [place], [facility], [place]. tel:[phone] Office/outpat ient Visit, Est Formerly [facility], [address] [place] [address] [address], [place], [place], [id number], tel:[phone] [facility] No Information 8-200 9 Ashleigh Hamilton [address] , [address], [place], [address], [place]. tel:[phone] Formerly [facility], [address] [place] [address] [address], [place], [place], [id number], tel:[phone] [facility] No Information Mar-0 7-200 8 Ashleigh Howard. [address] [facility] [place] , [address], [place], [place], [facility], . tel:[phone] Office/outpat ient Visit, Est [facility], [address] [place] [address] [address], [place], [place], [id number], [place] tel:[phone] [facility] No Information Sep-0 4-200 7 Hare OD Bhanu. [address] [facility] , [address], [place], [place], [facility], . tel:[phone] Formerly [facility], [address] [place] [address] [address], [place], [place], [id number], tel:[phone] [facility] No Information Feb-1 6-200 7 Ashleigh Howard. [address] [facility] , [address], [place], [place], [facility], . tel:[phone] Referring Provider: Anita Mishra [address] [place], [place] [address]ate [place] [address], [place], [place], [facility]. tel:[phone] Family History Family Member Type Diagnosis Age At Onset No Information Payers Payer name Insurance type Covered green party ID Authoriza tion(s) Medicare [facility] [id number] [place] [id number] Social History Type Description Quantity Date Captured [...]
[2025-01-15 18:44] LABS: Add Urine Microscopic? YES; Appearance Urine Cloudy (Clear); Bacteria Urine 4+ /hpf; Bilirubin Urine Negative (Negative); Blood Urine Negative (Negative); Color Urine Yellow (Yellow); Glucose Urine UA Negative (Negative); Ketones Urine Negative (Negative); Leukocyte Esterase Ur 3+ LEU/UL (Negative); Nitrate Urine Negative (Negative); Non Pathogenic Casts 0-2; Protein Urine Trace mg/dL (Negative); RBC Urine 0-2 /hpf (0-2); Specific Grav Ur 1.016 (1.001-1.035); Squamous Epithelial Cell Urine None Seen /hpf (Few); Urobilinogen Urine 0.2 mg/dL (<2.0); WBC Urine >100 /hpf (0-3)
== END 2025-01-15 10:10 | disposition home or self-care (01) ==
LOC: ANHGOSHLAB 10:16
DX: Z00.00 Encounter for general adult medical examination without abnormal findings (principal)
CPT/HCPCS: 81001

== ENCOUNTER 2025-04-16 10:19 | Outpatient (CLI) | payer MEDICARE, SELFPAY ==
--- NOTE | ~2025-04-16 | XR_ITS ---
Clinical Indication: Asthma PA and lateral views of the chest: Comparison: None Findings: There is probable linear scarring at the right midlung. Left lung clear.. Cardiomediastina l silhouette is unremarkable, status post median sternotomy. Bones and soft tissues are unremarkable. Impression: Linear scarring right midlung. No definite acute abnormality seen. Reviewed, dictated and finalized at [facility]. Impression: Linear scarring right midlung. No definite acute abnormality seen.
== END 2025-04-16 10:20 | disposition home or self-care (01) ==
PROVIDERS: PCP Internal Medicine Pulmonary Disease; Visit Provider Internal Medicine Pulmonary Disease
DX: J45.901 Unspecified asthma with (acute) exacerbation (principal); J98.4 Other disorders of lung
CPT/HCPCS: 71046

== ENCOUNTER 2025-07-30 13:25 | Inpatient (IN) | payer MEDICARE, SELFPAY ==
--- OUTSIDE RECORDS SUMMARY | 2010-06-27 10:45 | XMS_ITS | Continuity of Care Document ---
Author Organization [facility] Address [address] [place] [address] [place] [address] Phone Care Team Providers Care Gta Name Role Phone Anita Sotelo Unavailable Unavailable Procedures Procedure Date Eye Exam & Treatment Dilated Macular Exam Performed 10 Counseling For Antioxidant Supplements A Refraction Office/outpatient Visit, Est Eye Exam & Treatment Office/outpatient Visit, Est Visual Functional Status Assessed Eye Exam & Treatment Refraction Fundus Photography W/ Report Advance Directives Directive Yes / No Effective Date File Name No Information Encounters Encounter Description Practice Location Reason(s) For Visit Diagnoses Date Provider Providers Copied on Encounter [facility], [address] [place] [address] [address], [place], [place], [id number], tel:[phone] [facility] No Information 4-201 0 Ashleigh Hamilton [address] , [address], [place], [place], [facility], [place]. tel:[phone] Office/outpat ient Visit, Est [facility], [address] [place] [address] [address], [place], [place], [id number], tel:[phone] [facility] No Information 8-200 9 Ashleigh Hamilton [address] , [address], [place], [address], [place]. tel:[phone] [facility], [address] [place] [address] [address], [place], [place], [id number], tel:[phone] [facility] No Information Mar-0 7-200 8 Ashleigh Howard. [address] [facility] [employer] , [address], [place], [place], [facility], . tel:[phone] Office/outpat ient Visit, Est [facility], [address] [place] [address] [address], [place], [place], [id number], [place] tel:[phone] [facility] No Information Sep-0 4-200 7 Hare OD Bhanu. [address] [facility] , [address], [place], [place], [facility], . tel:[phone] [facility], [address] [place] [address] [address], [place], [place], [id number], tel:[phone] [facility] No Information Feb-1 6-200 7 Ashleigh Howard. [address] [facility] , [address], [place], [place], [facility], . tel:[phone] Referring Provider: Anita Mishra [address] [place], [place] [address]ate [employer] [address], [place], [place], [facility]. tel:[phone] Family History Family Member Type Diagnosis Age At Onset No Information Payers Payer name Insurance type Covered alliance party ID Authoriza tion(s) Medicare [facility] [id number] BCBS [place] Commercial [id number] Social History Type Description Quantity Date Captured Comments Sex Male Smoking Status No Information Chief Complaint And Reason For Visit No Information Reason For Referral Reason For Referral No Information History Of Present Illness Encounter Date Complaint History Of Prese nt Illness No Information Functional Status Date Functional Assessmen t No Information Instructions Date Instruction Additional Infor mation No Information Assessments Type Assessment Date No Information Patient Care Teams Name Effective Dates (start - stop) Status Members No Information
[2025-07-30] VITALS (17 sets, daily range): BP systolic 103–140; BP diastolic 52–114; PULSE 83–115; RESP 20–34; TEMP 36.7–37.3; O2SAT 88–96
--- NOTE | ~2025-07-30 | XR_ITS ---
EXAMINATION: XR chest 1V portable COMPARISON: No comparisons available. HISTORY: fever FINDINGS: Scattered bilateral small infiltrates. No pneumothorax. Heart is normal size. Mediastinal and hilar contours are within normal limits. Post sternotomy. Moderate to severe degenerative changes of the glenohumeral joints bilaterally. Miscellaneous: None Impression: Early bilateral pneumonia Reviewed, dictated and finalized at location P. Impression: Early bilateral pneumonia
--- OUTSIDE RECORDS SUMMARY | 2025-07-30 13:35 | XMS_ITS | Encounter Summary ---
Author Organization [employer] Address 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
--- OUTSIDE RECORDS SUMMARY | 2025-07-30 13:35 | XMS_ITS | Encounter Summary ---
Author Organization [employer] Address 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
--- OUTSIDE RECORDS SUMMARY | 2025-07-30 13:35 | XMS_ITS | Encounter Summary ---
Author Organization [facility] Address [address] [place] [address] Care Team Providers Care Brazer Assembler Name Role Phone Luis Fernando Vo MD Primary Care Provider +1- [phone] Encounter Details Date Type Department Care Team (Late st Contact Info) Description 08/21/2023 Lab Requisition [facility] - DermPath Lab [address] [facility], [place] [address] Chiki Nicholson MD [address] [place] [address] Social History Tobacco Use Types Packs/Day Years Used Date Smoking Tobacco: Former Smokeless Tobacco: Never Alcohol Use Standard Drinks/Week Comments Yes 0 (1 standard drink = 0.6 oz pur e alcohol) nightly gin and tonic Sex and Gender Information Value Date Recorded Sex Assigned at Not on file Legal Sex Male 5:21 PM EDITOR INDEX Gender Identity Not on file Sexual Orientation Not on file documented as of this encounter Functional Status * Is person deaf or have serious hearing difficulty? Answer Date of Assessment Author Yes 07/05/2021 12:53 PM Faustina Hodgson RN * Is person blind or have serious difficulty seeing? Answer Date of Assessment Author No 07/05/2021 12:53 PM Faustina Hodgson RN * Does person have serious difficulty walking/climbing stairs? Answer Date of Assessment Author Yes 07/05/2021 12:53 PM CDT Faustina Graves RN * Does person have difficulty dressing/bathing? Answer Date of Assessment Author No 07/05/2021 12:53 PM CDT Faustina Graves RN * Does person have difficulty doing errands alone? Answer Date of Assessment Author No 07/05/2021 12:53 PM CDT Faustina Graves RN documented as of this encounter Mental Status * Does person have difficulty concentrating/remembering/making decisions? Answer Entry Date Author No 07/05/2021 12:53 PM CDT Faustina Graves RN documented in this encounter Plan of Treatment Not on file documented as of this encounter Procedures Procedure Name Priority Date/Time Associated Diagnosis Comments DERMATOPATHOLOGY Routine 08/20/2023 12:0 0 AM CDT documented in this encounter Results * DERMATOPATHOLOGY (08/20/2023 12:00 AM CDT) Case Report Dermatopathology Report Case: [id number] Authorizing Provider: Chiki Nicholson MD Collected: 08/20/2023 12:00 AM Ordering Location: [facility] DermPath Lab Received: 08/21/2023 01:57 PM Pathologist: Ileana Sandoval MD Specimen: Skin, right volar mid FA 3 3:43 PM CDT DERMATOPATHOLOGY LABORATORY Final Diagnosis Specimen A. 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 The specimen consists of a shave biopsy measuring [id number] mm. Jar 0. 3:43 PM CDT DERMATOPATHOLOGY [...] a mixed inflammatory infiltrate. 3 3:43 PM CDT DERMATOPATHOLOGY LABORATORY Disclaimer An external and internal positive and negative controls are appropriate for the histochemical, immunohistochemical and immunofluorescence stain(s) in this case (if any), except where stated explicitly. The performance characteristics of the stain(s) cited in this report were developed and its performance characteristic determined by the Dermatopathology Laboratory at [facility], directed by Dr. Azalea Peters. These tests need not be, and therefore are not, approved by the [place] Food and Drug Administration. The tests are used for clinical purposes. Billing Codes Specimen Charges Stain Charges 61215 1 3 3:43 PM CDT DERMATOPATHOLOGY LABORATORY Embedded Images 3:43 PM CDT DERMATOPATHOLOGY LABORATORY Pathology/Cytolog y TISSUE SPECIMEN FROM SKIN / Unknown 08/20/2023 08/21/2023 1:57 PM CDT Chiki Nicholson MD LAB - PATHOLOGY/CYTOLOGY ORD ERABLES Final Result DERMATOPATHOLOGY LABORATORY [facility] - Department of Dermatology [facility] [address] [place] [address], [address] [phone] documented in this encounter Visit Diagnoses Not on filedocumented in this encounter Care Teams Brazer Assembler Relationship Specialty Start Date End Date Luis Fernando Vo MD [address] [phone] PCP - General Cardiovascular Disease 06/06/21 documented as of this encounter
--- OUTSIDE RECORDS SUMMARY | 2025-07-30 13:35 | XMS_ITS | Encounter Summary ---
Author Organization [employer] Address 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
--- OUTSIDE RECORDS SUMMARY | 2025-07-30 13:35 | XMS_ITS | Clinical Summary ---
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 Gender Identity Not on file Sexual Orientation [...] 10:49 AM CDT Height 177.8 cm (5' 10) 02/21/2012 10:49 AM CDT Body Mass Index [...] 02/20/2017 02/21/2012, 02/21/2012, 11/24/2002 INFLUENZA VACCINE (#1) 2025 Procedures Procedure Name Priority Date/Time Associated Diagnosis Comments ENDOSCOPY, COLON, DIAGNOSTIC Routine 11/24/2002 from Last 3 Months or Most Recently Relevant to Health Maintenance Results * (ABNORMAL) ENDOSCOPY, COLON, DIAGNOSTIC (11/24/2002) Peewee Easton MD GI PROCEDURE ORDERABLES Edited [facility] from Last 3 Months or Most Recently Relevant to Health Maintenance Insurance MEDICARE PART A AND B [facility] BLUE ACCESS CHOICE [facility] SUPP Advance Directives For more information, please contact: [phone] * Full Code (Latest Code Status on File) Date Activated Date Inactivated Comments 02/21/2012 11:10 AM 02/22/2012 2:01 AM Care Teams Coat Joiner Relationship Specialty Start Date End Date Luis Fernando Vo MD [address] [place] [address] [address] [place] [address] PCP - General Interventional Cardiology 01/31/12
--- OUTSIDE RECORDS SUMMARY | 2025-07-30 13:35 | XMS_ITS | Encounter Summary ---
Author Organization [employer] Address 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
--- OUTSIDE RECORDS SUMMARY | 2025-07-30 13:35 | XMS_ITS | Encounter Summary ---
Author Organization [employer] Address 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
--- OUTSIDE RECORDS SUMMARY | 2025-07-30 13:35 | XMS_ITS | Encounter Summary ---
Author Organization [employer] Address 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
--- OUTSIDE RECORDS SUMMARY | 2025-07-30 13:35 | XMS_ITS | Encounter Summary ---
Author Organization [facility] Address [address] [place] [address] Care Team Providers Care Seafood Packer Name Role Phone Luis Fernando Vo MD Primary Care Provider +1- [phone] Encounter Details Date Type Department Care Team (Late st Contact Info) Description 09/24/2018 Lab Requisition [facility] Care DermPath Lab [address] [facility], [place] [phone] Chiki Nicholson MD [address] [place] [address] Social History Tobacco Use Types Packs/Day Years Used Date Smoking Tobacco: Former Smokeless Tobacco: Never Alcohol Use Standard Drinks/Week Comments Yes 0 (1 standard drink = 0.6 oz pur e alcohol) Sex and Gender Information Value Date Recorded Sex Assigned at Not on file 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 Gender Identity Not on file Sexual Orientation Not on file documented as of this encounter Plan of Treatment Not on file documented as of this encounter Procedures Procedure Name Priority Date/Time Associated Diagnosis Comments DERMATOPATHOLOGY Routine 09/23/2018 12:0 0 AM MORTGAGE PROTECTION SPECIALIST documented in this encounter Results * DERMATOPATHOLOGY (09/23/2018 12:00 AM MORTGAGE PROTECTION SPECIALIST) Case Report Dermatopathology Report Case: [id number] Authorizing Provider: Chiki Nicholson MD Collected: 09/23/2018 12:00 AM Pathologist: Mindi Blackman MD Received: 09/24/2018 12:46 PM Specimen: Skin, right post vertex 12:57 PM [facility] DERMATOPATHOLOGY LABORATORY Final Diagnosis Specimen A. 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 The specimen consists of a shave biopsy measuring 22t56k8 mm. Jar 0. 12:57 PM [facility] DERMATOPATHOLOGY LABORATORY Microscopic Description Specimen A. SKIN, right post vertex: Sections reveal parakeratosis, acanthosis and keratinocyte dysmaturation which is most prominent in the lower epidermis. Focal nests are present in the dermis.This lesion is not present at the sampled margin of the specimen. 12:57 PM [facility] DERMATOPATHOLOGY LABORATORY Disclaimer An external and internal positive and negative controls are appropriate for the histochemical, immunohistochemical and immunofluorescence stain(s) in this case (if any), except where stated explicitly. The performance characteristics of the stain(s) cited in this report were developed and its performance characteristic determined by the Dermatopathology Laboratory at [facility]. These tests need not be, and therefore are not, approved by the [place] Food and Drug Administration. The tests are used for clinical purposes. Billing Codes Specimen Charges Stain Charges 39704 1 12:57 PM [facility] DERMATOPATHOLOGY LABORATORY Embedded Images 12:57 PM [facility] DERMATOPATHOLOGY LABORATORY Pathology/Cytolog y TISSUE SPECIMEN FROM SKIN / Unknown 09/23/2018 09/24/2018 12:46 PM [facility] us Chiki Nicholson MD LAB - PATHOLOGY/CYTOLOGY ORD ERABLES Final Result DERMATOPATHOLOGY LABORATORY [facility] - Department of Dermatology [address] [facility], 5th Floor Lab [address] [phone] documented in this encounter Visit Diagnoses Not on filedocumented in this encounter Care Teams Seafood Packer Relationship Specialty Start Date End Date Luis Fernando Vo MD [address] [place] [address] [address] [place] [address] PCP - General Cardiovascular Disease 06/06/21 documented as of this encounter
--- OUTSIDE RECORDS SUMMARY | 2025-07-30 13:35 | XMS_ITS | Encounter Summary ---
Author Organization [facility] Address [address] [place] [address] Care Team Providers Care Flatwork Catcher Name Role Phone Luis Fernando Vo MD Primary Care Provider +1- [phone] Encounter Details Date Type Department Care Team (Late st Contact Info) Description 02/11/2019 Lab Requisition [facility] Care DermPath Lab [address] [facility] [place] [phone] Chiki Nicholson MD [address] [place] [address] Social History Tobacco Use Types Packs/Day Years Used Date Smoking Tobacco: Former Smokeless Tobacco: Never Alcohol Use Standard Drinks/Week Comments Yes 0 (1 standard drink = 0.6 oz pur e alcohol) Sex and Gender Information Value Date Recorded Sex Assigned at Not on file 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 Gender Identity Not on file Sexual Orientation Not on file documented as of this encounter Plan of Treatment Not on file documented as of this encounter Procedures Procedure Name Priority Date/Time Associated Diagnosis Comments DERMATOPATHOLOGY Routine 02/10/2019 12:0 0 AM CDT documented in this encounter Results * DERMATOPATHOLOGY (02/10/2019 12:00 AM CDT) Case Report Dermatopathology Report Case: [id number] Authorizing Provider: Chiki Nicholson MD Collected: 02/10/2019 12:00 AM Pathologist: Angelika Peters MD Received: 02/11/2019 01:03 PM Specimen: Skin, left preauric cheek 4:18 PM T DERMATOPATHOLOGY LABORATORY Final Diagnosis Specimen A. SKIN, left preauric cheek: DERMAL SCAR; PRESENT AT MARGIN RESIDUAL SQUAMOUS CELL CARCINOMA NOT IDENTIFIED (L90.5) ACTINIC KERATOSIS, INCIDENTAL; PRESENT AT MARGIN (L57.0) (see microscopic description) 4:18 PM T DERMATOPATHOLOGY LABORATORY at 1618 CDT Clinical History R/O Bx proven SCC, ancantholytic type. Check margins. 4:18 PM CDT DERMATOPATHOLOGY LABORATORY Gross Description Specimen A: Received is one formalin filled container labeled with the patient's name and designated left preauric cheek.The specimen consists of an ellipse measuring 49l3i6se and is oriented with the suture/notch at [...] in cassettes 3-4. Jar 0. 4:18 PM [facility] DERMATOPATHOLOGY LABORATORY Microscopic Description Specimen A. SKIN, [...] o'clock tip of the specimen. 4:18 PM T DERMATOPATHOLOGY LABORATORY Disclaimer An external and internal positive and negative controls are appropriate for the histochemical, immunohistochemical and immunofluorescence stain(s) in this case (if any), except where stated explicitly. The performance characteristics of the stain(s) cited in this report were developed and its performance characteristic determined by the Dermatopathology Laboratory at [facility], directed by Dr. Azalea Peters. These tests need not be, and therefore are not, approved by the [place] Food and Drug Administration. The tests are used for clinical purposes. Billing Codes Specimen Charges Stain Charges 75898 1 9 4:18 PM CDT DERMATOPATHOLOGY LABORATORY Embedded Images 9 4:18 PM CDT DERMATOPATHOLOGY LABORATORY Pathology/Cytolog y TISSUE SPECIMEN FROM SKIN / Unknown 02/10/2019 02/11/2019 1:03 PM CDT Chiki Nicholson MD LAB - PATHOLOGY/CYTOLOGY ORD ERABLES Final Result DERMATOPATHOLOGY LABORATORY [facility] - Department of Dermatology [address] [place] [address] 5th Floor Lab [address] [phone] documented in this encounter Visit Diagnoses Not on filedocumented in this encounter Care Teams Flatwork Catcher Relationship Specialty Start Date End Date Luis Fernando Vo MD [address] [place] [address] PCP - General Cardiovascular Disease 06/06/21 documented as of this encounter
--- OUTSIDE RECORDS SUMMARY | 2025-07-30 13:35 | XMS_ITS | Encounter Summary ---
Author Organization [employer] Address 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
--- OUTSIDE RECORDS SUMMARY | 2025-07-30 13:35 | XMS_ITS | Encounter Summary ---
Author Organization [employer] Address 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
--- OUTSIDE RECORDS SUMMARY | 2025-07-30 13:35 | XMS_ITS | Encounter Summary ---
Author Organization [facility] Address [address] [place] [address] Care Team Providers Care Nailer Operator Name Role Phone Luis Fernando Vo MD Primary Care Provider +1- [phone] Encounter Details Date Type Department Care Team (Late st Contact Info) Description 01/13/2020 Lab Requisition 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 Gender Identity Not on file Sexual Orientation Not on file documented as of this encounter Plan of Treatment Not on file documented as of this encounter Procedures Procedure Name Priority Date/Time Associated Diagnosis Comments DERMATOPATHOLOGY Routine 01/12/2020 12:0 0 AM CDT documented in this encounter Results * DERMATOPATHOLOGY (01/12/2020 12:00 AM CDT) Case Report Dermatopathology Report Case: [id number] Authorizing Provider: Chiki Nicholson MD Collected: 01/12/2020 12:00 AM Ordering Location: [facility] Derm[facility] Lab Received: 01/13/2020 01:47 PM Pathologist: Ileana Sandoval MD Specimen: Skin, left lateral canthus 0 1:40 PM CDT DERMATOPATHOLOGY LABORATORY Final Diagnosis Specimen A. SKIN, left lateral canthus: SQUAMOUS CELL CARCINOMA, WELL DIFFERENTIATED (C44.329) 0 1:40 PM CDT DERMATOPATHOLOGY LABORATORY at 1340 CDT Clinical History R/O SCC vs ISK. 0 1:40 PM CDT DERMATOPATHOLOGY LABORATORY Gross Description Specimen A: Received is one formalin filled container labeled with the patient's name and designated left lateral canthus. The specimen consists of a shave biopsy (2 pieces) measuring [id number] & [id number]. Jar 0. 0 1:40 PM CDT DERMATOPATHOLOGY [...] characteristic determined by the Dermatopathology Laboratory at [facility], directed by Dr. Azalea Peters. These tests need not be, and therefore are not, approved by the [place] Food and Drug Administration. The tests are used for clinical purposes. Billing Codes Specimen Charges Stain Charges 46627 1 0 1:40 PM CDT DERMATOPATHOLOGY LABORATORY Embedded Images 0 1:40 PM CDT DERMATOPATHOLOGY LABORATORY Pathology/Cytolog y TISSUE SPECIMEN FROM SKIN / Unknown 01/12/2020 01/13/2020 1:47 PM CDT Chiki Nicholson MD LAB - PATHOLOGY/CYTOLOGY ORD ERABLES Final Result DERMATOPATHOLOGY LABORATORY [facility] - Department of Dermatology [address] [facility], [address]th [place] [address], [facility] [phone] documented in this encounter Visit Diagnoses Not on filedocumented in this encounter Care Teams Nailer Operator Relationship Specialty Start Date End Date Luis Fernando Vo MD [address] [facility] [address] [place] [address] PCP - General Cardiovascular Disease 06/06/21 documented as of this encounter
--- OUTSIDE RECORDS SUMMARY | 2025-07-30 13:35 | XMS_ITS | Encounter Summary ---
Author Organization [employer] Address 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
--- OUTSIDE RECORDS SUMMARY | 2025-07-30 13:35 | XMS_ITS | Encounter Summary ---
Author Organization [employer] Address 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
--- OUTSIDE RECORDS SUMMARY | 2025-07-30 13:35 | XMS_ITS | Encounter Summary ---
Author Organization [facility] Address [address] [address] Care Team Providers Care Green Lumber Grader Name Role Phone Luis Fernando Vo MD Primary Care Provider +1- [phone] Encounter Details Date Type Department Care Team (Late st Contact Info) Description 02/06/2023 Lab Requisition [facility] [address] [facility] [place] [id number] Chiki Nicholson MD [address] [place] [address] Social History Tobacco Use Types Packs/Day Years Used Date Smoking Tobacco: Former Smokeless Tobacco: Never Alcohol Use Standard Drinks/Week Comments Yes 0 (1 standard drink = 0.6 oz pur e alcohol) nightly gin and tonic Sex and Gender Information Value Date Recorded Sex Assigned at Not on file Legal 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 SKIN, dorsal right prox forearm: SQUAMOUS CELL CARCINOMA, KERATOACANTHOMA TYPE (C44.622) 3 3:46 PM CDT DERMATOPATHOLOGY LABORATORY at 1546 CDT Clinical History A-B: R/O SCC, KA 3 3:46 PM CDT DERMATOPATHOLOGY LABORATORY Gross Description Specimen A: Received is one formalin filled container labeled with the patient's name and designated dorsal left hand. The specimen consists of a shave biopsy measuring [id number] mm. Jar 0. Specimen B: Received is one formalin filled container labeled with the patient's name and designated dorsal right prox forearm. The specimen consists of a shave biopsy measuring [id number] mm. Jar 0. 3 3:46 PM CDT DERMATOPATHOLOGY LABORATORY Microscopic Description [...] characteristic determined by the Dermatopathology Laboratory at [facility], directed by Dr. Azalea Peters. These tests need not be, and therefore are not, approved by the [place] Food and Drug Administration. The tests are used for clinical purposes. Billing Codes Specimen Charges Stain Charges 75383 59221 1 1 3 3:46 PM CDT DERMATOPATHOLOGY LABORATORY Embedded Images 3 3:46 PM CDT DERMATOPATHOLOGY LABORATORY Pathology/Cytology TISSUE SPECIMEN FROM SKIN / Unknown 02/05/2023 3:33 AM CDT 02/06/2023 2:23 PM CDT Miscellaneous samples (specimen) TISSUE SPECIMEN FROM SKIN / Unknown 02/05/2023 3:33 AM CDT 02/06/2023 2:23 PM CDT us Chiki Nicholson MD LAB - PATHOLOGY/CYTOLOGY ORD ERABLES Final Result DERMATOPATHOLOGY LABORATORY [facility] - Department of Dermatology [place] [address] [facility] [place] [address], [facility] [phone] documented in this encounter Visit Diagnoses Not on filedocumented in this encounter Care Teams Green Lumber Grader Relationship Specialty Start Date End Date Luis Feranndo Vo MD [address] [place] [address] [address] [place] [address] PCP - General Cardiovascular Disease 06/06/21 documented as of this encounter
--- OUTSIDE RECORDS SUMMARY | 2025-07-30 13:35 | XMS_ITS | Encounter Summary ---
Author Organization [employer] Address 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
--- OUTSIDE RECORDS SUMMARY | 2025-07-30 13:35 | XMS_ITS | Encounter Summary ---
Author Organization [facility] Address [address] [place] [address] Care Team Providers Care Escort Vehicle Driver Name Role Phone Luis Fernando Vo MD Primary Care Provider +1- [phone] Encounter Details Date Type Department Care Team (Late st Contact Info) Description 01/21/2019 Lab Requisition [facility] Care Derm[facility] Lab [address] [facility] [place] [address] Chiki Nicholson MD [address] [place] [address] Social History Tobacco Use Types Packs/Day Years Used Date Smoking Tobacco: Former Smokeless Tobacco: Never Alcohol Use Standard Drinks/Week Comments Yes 0 (1 standard drink = 0.6 oz pur e alcohol) Sex and Gender Information Value Date Recorded Sex Assigned at Not on file 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 Gender Identity Not on file Sexual Orientation Not on file documented as of this encounter Plan of Treatment Not on file documented as of this encounter Procedures Procedure Name Priority Date/Time Associated Diagnosis Comments DERMATOPATHOLOGY Routine 01/20/2019 12:0 0 AM CDT documented in this encounter Results * DERMATOPATHOLOGY (01/20/2019 12:00 AM CDT) Case Report Dermatopathology Report Case: [id number] Authorizing Provider: Chiki Nicholson MD Collected: 01/20/2019 12:00 AM Pathologist: Angelika Peters MD Received: 01/21/2019 11:27 AM Specimen: Skin, left preauric cheek 3:28 PM CDT DERMATOPATHOLOGY LABORATORY Final Diagnosis Specimen A. SKIN, left preauric cheek: SQUAMOUS CELL CARCINOMA, ACANTHOLYTIC TYPE (C44.329) 3:28 PM CDT DERMATOPATHOLOGY LABORATORY at 1528 CDT Clinical History R/O ISK vs other. 3:28 PM CDT DERMATOPATHOLOGY LABORATORY Gross Description Specimen A: Received is one formalin filled container labeled with the patient's name and designated left preauric cheek. The specimen consists of a shave biopsy (2 pieces) measuring [id number], bisected, & 2r0x0lg. Jar 0. 3:28 PM CDT DERMATOPATHOLOGY LABORATORY [...] purposes. Billing Codes Specimen Charges Stain Charges [id number] 1 3:28 PM CDT DERMATOPATHOLOGY LABORATORY Embedded Images 3:28 PM CDT DERMATOPATHOLOGY LABORATORY Pathology/Cytolog y TISSUE SPECIMEN FROM SKIN / Unknown 01/20/2019 01/21/2019 11:27 AM CDT Chiki Nicholson MD LAB - PATHOLOGY/CYTOLOGY ORD ERABLES Final Result DERMATOPATHOLOGY LABORATORY [facility] - Department of Dermatology [address] [facility], [address]th [place] [address], [facility] [phone] documented in this encounter Visit Diagnoses Not on filedocumented in this encounter Care Teams Escort Vehicle Driver Relationship Specialty Start Date End Date Luis Fernando Vo MD [address] [place] [address] [address] [place] [address] PCP - General Cardiovascular Disease 06/06/21 documented as of this encounter
--- OUTSIDE RECORDS SUMMARY | 2025-07-30 13:35 | XMS_ITS | Encounter Summary ---
Author Organization [employer] Address 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
--- OUTSIDE RECORDS SUMMARY | 2025-07-30 13:35 | XMS_ITS | Encounter Summary ---
Author Organization [employer] Address 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
--- OUTSIDE RECORDS SUMMARY | 2025-07-30 13:35 | XMS_ITS | Clinical Summary ---
Author Organization [facility] [employer] Address [address] [facility] [place] [address] Care Team Providers Care Ticket Printer And Tagger Name Role Phone Luis Fernando Vo MD Primary Care Provider +1- [phone] Source Comments [facility] [employer],non-owned Affiliates and Associated Physician Practices is amultiple site organization consisting of ambulatory clinics and hospital sitesin [place], [place], [place] and [place]. This disclosure is being madepursuant to the Care Everywhere program and may not contain all information available regarding this patient. Last updated 18.[facility] [employer] Allergies No known active allergies Medications * Be aware that medications may not be up to date on this document. Alwaysverify current medications with the patient. simvastatin (ZOCOR) 20 MG tablet 7 Active fexofenadine (JENNIFER) 60 MG tablet Take by mouth. 7 Active fesoterodine CR 24hr (TOVIAZ) 4 MG tablet Take by mouth. 7 Active cephalexin (KEFLEX) 250 MG capsule Take 250 mg by mouth at bedtime 1 Active allopurinol (ZYLOPRIM) 100 MG tablet Take 100 mg by mouth once daily Active tamsulosin (FLOMAX) 0.4 MG capsule Take 0.4 mg by mouth once daily Active omeprazole EC (PRILOSEC OTC) 20 MG tablet Take 20 mg by mouth once daily Active hydroCHLOROthia zide (HYDRODIURIL) 25 MG tablet Take 25 mg by mouth once daily Active aspirin (ASPIRIN) 81 MG chew tablet Take 325 mg by mouth once daily Active ADVAIR DISKUS 250-50 MCG/DOSE inhaler Inhale 1 puff by mouth 2 times daily 1 Active saline nasal spray (OCEAN; BABY AYR) 0.65 % nasal spray Arkoma 2 (two) sprays into each nostril 4 times daily as needed for Dry Nose 1 Active albuterol HFA (PROVENTIL;VENT CONSUELO;PROAIR) 108 (90 Base) MCG/ACT inhaler INHALE 2 PUFFS BY MOUTH EVERY 4 HOURS NEEDED FOR SHORTNESS OF BREATH FOR 30 DAYS 1 Active prochlorperazin e (COMPAZINE) 10 MG tablet TAKE 1 TABLET BY MOUTH TWICE A DAY NEEDED FOR NAUSEA 1 Active Active Problems No known active problems Immunizations Immunization Administration Dates Next Due INFLUENZA VACCINE, TRIV. 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 Gender Identity Not on file Sexual [...] 3:01 PM CDT Height 177.8 cm (5' 10) 08/08/2021 3:01 PM CDT Body Mass Index 28.84 08/08/2021 3:01 PM CDT Plan of Treatment Health Maintenance Due Date Last Done Comments MEDICARE AWV 12 MONTHS 1935 DTAP/TDAP/TD VACCINES (1 - Tdap) 1954 ZOSTER VACCINE (1 of 2) 1985 Respiratory Syncytial Virus (RSV) Vaccine Pt: or over 60 yrs (1 - 1-dose 75+ series) 2010 DEPRESSION SCREENING 11/04/2024 COVID-19 VACCINE (2024- season) 2025 08/28/2021, 12/30/2020, 12/02/2020 INFLUENZA VACCINE (#1) 2025 , 07/21/2020, 09/01/2019, Additional history exists PNEUMOCOCCAL VACCINE 50+ Completed 01/09/2016, 10/04 HEPATITIS [...] on patient's age to complete this topic Insurance MEDICARE MEDICARE ANTH Care Teams Ticket Printer And Tagger Relationship Specialty Start Date End Date Luis Fernando Vo MD [address] [place] [address] [address] [place] [address] PCP - General Cardiovascular Disease 06/06/21
--- OUTSIDE RECORDS SUMMARY | 2025-07-30 13:35 | XMS_ITS | Encounter Summary ---
Author Organization [employer] Address 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
--- OUTSIDE RECORDS SUMMARY | 2025-07-30 13:35 | XMS_ITS | Encounter Summary ---
Author Organization [employer] Address 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 [place] [address] PCP - General Interventional Cardiology 01/31/12 documented as of this encounter
--- OUTSIDE RECORDS SUMMARY | 2025-07-30 13:35 | XMS_ITS | Clinical Summary ---
Author Organization [facility] Address [address] [place] [address] Care Team Providers Care Edi Developer Name Role Phone Unavailable Primary Care Provider Unavailabl e Immunizations Immunization Administration Dates Next Due MODERNA COVID-19 (12+) MRNA, LNP-S, PF, 100 MCG/ 0.5 ML DOSE 12/30/2020,12/02/2020 Social History Tobacco Use Types Packs/Day Years Used Date Smoking Tobacco: Never Assessed Sex and Gender Information Value Date Recorded Sex Assigned at Not on file Legal Sex Male 11:02 AM TALKBACK HOST Gender Identity Not on file Sexual Orientation Not on file Plan of Treatment Health Maintenance Due Date Last Done Comments DTaP, Tdap and Td Vaccines ( 1 - Tdap) 1954 Zoster Vaccines (1 of 2) 1985 RSV Immunization or 60+ Years (1 - 1-dose 75+ series) 2010 Pneumococcal Vaccine: 50+ Years (2 of 2 - PPSV23) 11/08/2021 11/08/2020 COVID-19 Vaccine (3 - 2024-2 6 season) 2025 12/30/2020, 12/02/2020 Meningococcal B Vaccine Aged Out No l onger eligible based on patient's age to complete this topic Meningococcal Vaccine Aged Out No main maksim eligible based on patient's age to complete this topic RSV Immunizations Under 20 Months Aged Out No longer eligible b ased on patient's age to complete this topic
--- OUTSIDE RECORDS SUMMARY | 2025-07-30 13:35 | XMS_ITS | Encounter Summary ---
Author Organization [employer] Address 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
--- OUTSIDE RECORDS SUMMARY | 2025-07-30 13:35 | XMS_ITS | Encounter Summary ---
Author Organization [employer] Address 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
--- OUTSIDE RECORDS SUMMARY | 2025-07-30 13:35 | XMS_ITS | Encounter Summary ---
Author Organization [employer] Address 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
--- OUTSIDE RECORDS SUMMARY | 2025-07-30 13:35 | XMS_ITS | Encounter Summary ---
Author Organization [facility] Address [address] [place] [address] Care Team Providers Care Filling Carrier Name Role Phone Luis Fernando Vo MD Primary Care Provider +1- [phone] Encounter Details Date Type Department Care Team (Late st Contact Info) Description 05/02/2021 Lab Requisition [facility] Care DermPath Lab [address] [facility] [place] [phone] Chiki Nicholson MD [address] [place] [address] Social History Tobacco Use Types Packs/Day Years Used Date Smoking Tobacco: Former Smokeless Tobacco: Never Alcohol Use Standard Drinks/Week Comments Yes 0 (1 standard drink = 0.6 oz pur e alcohol) Sex and Gender Information Value Date Recorded Sex Assigned at Not on file 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 Gender Identity Not on file Sexual Orientation Not on file documented as of this encounter Plan of Treatment Not on file documented as of this encounter Procedures Procedure Name Priority Date/Time Associated Diagnosis Comments DERMATOPATHOLOGY Routine 05/01/2021 12:0 0 AM CDT documented in this encounter Results * DERMATOPATHOLOGY (05/01/2021 12:00 AM CDT) Case Report Dermatopathology Report Case: [id number] Authorizing Provider: Chiki Nicholson MD Collected: 05/01/2021 12:00 AM Ordering Location: [facility] DermPath Lab Received: 05/02/2021 01:36 PM Pathologist: Mindi Blackman MD Specimen: Skin, nasal tip 11:34 AM T DERMATOPATHOLOGY LABORATORY Final Diagnosis Specimen A. SKIN, nasal tip: LENTIGINOUS MELANOCYTIC PROLIFERATION; PRESENT AT MARGIN (D48.5) (see microscopic description and comment) 11:34 AM CDT DERMATOPATHOLOGY LABORATORY at 1134 CDT Clinical History R/O melanocytic lesion vs lentigo. 11:34 AM CDT DERMATOPATHOLOGY LABORATORY Gross Description Specimen A: Received is one formalin filled container labeled with the patient's name and designated nasal tip. The specimen consists of a shave biopsy (2 pieces) measuring [id number] & [id number]. Jar 0. 11:34 AM T DERMATOPATHOLOGY LABORATORY Microscopic Description Specimen A. [...] Dr. Virginie Allen, who agrees. 11:34 AM [facility] DERMATOPATHOLOGY LABORATORY Disclaimer An external and internal positive and negative controls are appropriate for the histochemical, immunohistochemical and immunofluorescence stain(s) in this case (if any), except where stated explicitly. The performance characteristics of the stain(s) cited in this report were developed and its performance characteristic determined by the Dermatopathology Laboratory at [facility], directed by Dr. Azalea Peters. These tests need not be, and therefore are not, approved by the [place] Food and Drug Administration. The tests are used for clinical purposes. Billing Codes Specimen Charges Stain Charges 71525 1 89120 1 11:34 AM CDT DERMATOPATHOLOGY LABORATORY Embedded Images 11:34 AM CDT DERMATOPATHOLOGY LABORATORY Pathology/Cytolog y TISSUE SPECIMEN FROM SKIN / Unknown 05/01/2021 05/02/2021 1:36 PM CDT Chiki Nicholson MD LAB - PATHOLOGY/CYTOLOGY ORD ERABLES Final Result DERMATOPATHOLOGY LABORATORY [facility] - Department of Dermatology [facility] Medicine [address] [place] [address], [address] [phone] documented in this encounter Visit Diagnoses Not on filedocumented in this encounter Care Teams Filling Carrier Relationship Specialty Start Date End Date Luis Fernando Vo MD [facility] [address] [address] PCP - General Cardiovascular Disease 06/06/21 documented as of this encounter
--- OUTSIDE RECORDS SUMMARY | 2025-07-30 13:35 | XMS_ITS | Encounter Summary ---
Author Organization [facility] Address [address] [place] [address] Care Team Providers Care Oxygen Therapy Technician Name Role Phone Luis Fernando Vo MD Primary Care Provider +1- [phone] Encounter Details Date Type Department Care Team (Late st Contact Info) Description 04/29/2019 Lab Requisition [facility] Care DermPath Lab [address] 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 Gender Identity Not on file Sexual Orientation Not on file documented as of this encounter Plan of Treatment Not on file documented as of this encounter Procedures Procedure Name Priority Date/Time Associated Diagnosis Comments DERMATOPATHOLOGY Routine 04/28/2019 12:0 0 AM CDT documented in this encounter Results * DERMATOPATHOLOGY (04/28/2019 12:00 AM CDT) Case Report Dermatopathology Report Case: [id number] Authorizing Provider: Chiki Nicholson MD Collected: 04/28/2019 12:00 AM Pathologist: Angelika Peters MD Received: 04/29/2019 12:36 PM Specimens: A) - Skin, vertex scalp right of midline B) - Skin, left of midline vertex scalp 5:45 PM CDT DERMATOPATHOLOGY LABORATORY Final Diagnosis Specimen A. SKIN, vertex scalp right of midline: HYPERPLASTIC (HYPERTROPHIC) ACTINIC KERATOSIS (L57.0) Specimen B. SKIN, left of midline vertex scalp: HYPERPLASTIC (HYPERTROPHIC) ACTINIC KERATOSIS (L57.0) 5:45 PM CDT DERMATOPATHOLOGY LABORATORY at 1745 CDT Clinical History A-B: R/O SCC 5:45 PM CDT DERMATOPATHOLOGY LABORATORY Gross Description [...] measuring 7x7x2 mm. Jar 0. 5:45 PM CDT DERMATOPATHOLOGY LABORATORY Microscopic Description [...] purposes. Billing Codes Specimen Charges Stain Charges 01615 35911 1 1 9 5:45 PM CDT DERMATOPATHOLOGY LABORATORY Embedded Images 9 5:45 PM CDT DERMATOPATHOLOGY LABORATORY Pathology/Cytology TISSUE SPECIMEN FROM SKIN / Unknown 04/28/2019 04/29/2019 12:36 PM CDT Miscellaneous samples (specimen) TISSUE SPECIMEN FROM SKIN / Unknown 04/28/2019 04/29/2019 12:36 PM CDT Chiki Nicholson MD LAB - PATHOLOGY/CYTOLOGY ORD ERABLES Final Result DERMATOPATHOLOGY LABORATORY [facility] - Department of Dermatology [address] [place] [address], 5th Floor Lab [address] [phone] documented in this encounter Visit Diagnoses Not on filedocumented in this encounter Care Teams Oxygen Therapy Technician Relationship Specialty Start Date End Date Luis Fernando Vo MD [address] [place] [address] [place] [phone] PCP - General Cardiovascular Disease 06/06/21 documented as of this encounter
--- NOTE | 2025-07-30 13:50 | ED.GENADULT ---
HPI - General Adult General Chief complaint: Shortness of Breath/Dyspnea Stated complaint: shivering, SOB Time Seen by Provider: 07/30/25 13:27 History of Present Illness HPI narrative: 89-year-old male present to the emergency department for evaluation for increased generalized weakness, fever and shortness of breath. Patient does have history of dementia and COPD. Patient reports last night and he walked to the bathroom he had worsening symptoms. also states that patient was complaining of symptoms earlier this morning. Related Data Home Medications ?Medication ?Instructions ?Recorded ?Confirmed ?Last Taken ?Type allopurinol 100 mg tablet 100 mg PO DAILY 10/11/20 07/30/25 08/31/21 History fexofenadine 180 mg tablet 180 mg PO DAILY 10/11/20 07/30/25 08/31/21 History tamsulosin 0.4 mg capsule 0.4 mg PO DAILY 10/11/20 07/30/25 08/31/21 History aspirin 81 mg tablet,delayed 81 mg PO DAILY 11/28/20 07/30/25 08/30/21 History release mjqucrcdfukv-ohqhacvs-vtnxoo tablet 1 tablet PO DAILY 11/28/20 07/30/25 08/30/21 History omeprazole 20 mg capsule,delayed 20 mg PO QAM 11/28/20 07/30/25 08/31/21 History release prochlorperazine maleate 10 mg 10 mg PO Q8H PRN Nausea 07/26/21 07/30/25 08/29/21 History tablet (Compazine) albuterol sulfate 90 mcg/actuation 2 inh inhalation Q4H PRN shortness 03/17/24 07/30/25 Unknown History aerosol inhaler of breath or wheezing fluticasone 250 mcg-salmeterol 50 1 inh inhalation BID 03/17/24 07/30/25 Unknown History mcg/dose blistr powdr for inhalation Held on 07/30/25. Instructions: .Provider Order furosemide 40 mg tablet 20 mg PO QAM 03/17/24 07/30/25 Unknown History metoprolol tartrate 50 mg tablet 50 mg PO BID 03/17/24 07/30/25 Unknown History potassium chloride 10 mEq 10 meq PO BID 03/17/24 07/30/25 Unknown History capsule,extended release rosuvastatin 20 mg tablet 20 mg PO DAILY 03/17/24 07/30/25 Unknown History sacubitril 49 mg-valsartan 51 mg 1 tablet PO BID 03/17/24 07/30/25 Unknown History tablet fluticasone fur. 200 mcg-umeclid 1 inh inhalation DAILY 07/30/25 07/30/25 Unknown History 62.5 mcg-vilant 25 mcg inhalat.powder (Trelegy Ellipta) Allergies Allergy/AdvReac Type Severity Reaction Status Date / Time No Known Allergies Allergy Verified 03/22/25 11:33 Review of Systems Review of Systems: All systems reviewed & are unremarkable except as noted in HPI and below [facility] Past Medical History Medical History (Updated 08/01/25 @ 14:55 by Beata Melo APRN) BPH (benign prostatic hyperplasia) Overweight (BMI 25.0-29.9) Prostate CA Gout Arthritis Chronic GERD Lung cancer COPD (chronic obstructive pulmonary disease) HTN (hypertension) Hypercholesterolemia CAD (coronary artery disease) Surgical History Surgical History 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 Social History Social History Social History: Caffeine-coffe/tea/soda Smoking packs per day: 1 Smoking cigarettes per day: 20.0 Years smoked: 40 Smoking pack-years: 40.00 Smoking status: Former smoker Second hand tobacco smoke exposure: No Alcohol intake: current Drinks per week: 9 Alcohol use details: 1 GIN & TONIC/DAY Substance use: never Substance use type: does not use Lack of Transportation: No Lack of Food: Never True Current Housing: I Have Housing Concerned About Future Housing: No Difficulty Paying Gas/Electric Bills: No Difficulty Paying for Meds: No Currently Unemployed: No Education: Trade/Vocational Certificate Difficulty w/ Childcare or Family Care: No Living arrangements: with family Additional living arrangements comments: Gender identity (if verbalized by the patient): Male Sexual Orientation (if Verbalized by the Patient): Straight or Heterosexual Spiritual care concerns: No Exam Narrative: APPEARANCE: Ill-appearing HEAD: normocephalic, atraumatic. EYES: PERRLA/EOMI, conjunctivae clear. NOSE: Normal no drainage EARS:TMS clear with good light reflex. THROAT: Pharynx clear, no exudate. NECK: Supple. No adenopathy, no masses. RESPIRATORY: Airway patent, respirations nonlabored. Clear to auscultation bilaterally, no rales, rhonchi, wheezing. CARDIOVASCULAR: Regular rate and rhythm without murmurs rubs or gallops. ABDOMINAL: Soft, nontender, nondistended, normal bowel sounds MUSCULOSKELETAL: Moves all extremities. Strength/ROM intact, No edema, No calf tenderness. NEURO: Alert. Cranial nerves II through XII intact. Good gait. Good coordination SKIN: Warm, dry. Normal Color Course Vital Signs Vital signs: Vital Signs Temperature 99.2 F 07/30/25 13:27 Pulse Rate 104 H 07/30/25 13:27 Respiratory Rate 24 H 07/30/25 13:27 Blood Pressure 140/71 07/30/25 13:27 Pulse Oximetry 92 07/30/25 13:27 Oxygen Delivery Room Air 07/30/25 13:27 Temperature 97.5 F L 08/03/25 04:56 Pulse Rate 88 08/03/25 07:18 Respiratory Rate 20 08/03/25 07:18 Blood Pressure 138/64 08/03/25 04:56 Pulse Oximetry 95 08/03/25 04:56 Oxygen Delivery Room Air 08/02/25 20:11 Oxygen Flow Rate 3 07/30/25 20:28 Fraction of Inspired Oxygen 21 08/02/25 20:11 Medical Decision Making [facility] Narrative Medical decision making narrative: 89-year-old male presents to the emergency department for evaluation for rigors and generalized weakness. Patient was diagnosed with urinary tract infection and pneumonia. Patient was started on Rocephin and azithromycin and also to his 2 L of IV fluids. Patient has no leukocytosis, BUN of 30, glucose of 137 lactic acid of 3.3 but patient was treated with IV fluids. Patient did have a elevated CRP of 3.7. Patient was negative influenza RSV and for COVID. Chest x-ray was concerning for bilateral pneumonia. Patient does have an oxygen requirement 3 L. discussed with hospitalist and patient was admitted for urinary tract infection and pneumonia. Patient family updated the results of the workup. All questions concerns were addressed. Patient was comfortable the plan for admission. Differential Diagnosis Differential Diagnosis: Class, diverticulitis, COVID, RSV influenza, pneumonia, UTI, AFib Vital Signs Vital Signs: Vital Signs Temperature 99.2 F 07/30/25 13:27 Pulse Rate 104 H 07/30/25 13:27 Respiratory Rate 24 H 07/30/25 13:27 Blood Pressure 140/71 07/30/25 13:27 Pulse Oximetry 92 07/30/25 13:27 Oxygen Delivery Room Air 07/30/25 13:27 Temperature 97.5 F L 08/03/25 04:56 Pulse Rate 88 08/03/25 07:18 Respiratory Rate 20 08/03/25 07:18 Blood Pressure 138/64 08/03/25 04:56 Pulse Oximetry 95 08/03/25 04:56 Oxygen Delivery Room Air 08/02/25 20:11 Oxygen Flow Rate 3 07/30/25 20:28 Fraction of Inspired Oxygen 21 08/02/25 20:11 Lab Data Lab results reviewed: Yes I reviewed the patient's lab results. 08/01/25 09:18 08/02/25 05:08 Labs: Lab Results 07/30/25 Range/Units 14:52 WBC 7.4 (4.5-10.0) K/mm3 RBC 4.91 (4.6-6.20) M/mm3 Hgb 14.7 (14.0-18.0) g/dL Hct 45.1 (42.0-52.0) % MCV 91.9 (80-100) fl MCH 29.9 (26-34) pg MCHC 32.6 (32-36) g/dl RDW 13.3 (11.5-14.5) % Plt Count 147 L (150-375) k/mm3 MPV 10.2 (7.4-10.4) fl Immature Gran % (Auto) 0.5 (0-0.5) % Neut % (Auto) 95.0 H (45.5-73.1) % Lymph % (Auto) 3.4 L (18.3-44.2) % [place] % (Auto) 0.4 L (2.6-8.5) % Eos % (Auto) 0.3 (0-4.4) % Baso % (Auto) 0.4 (0.2-1.2) % Lymph # (Auto) 0.25 L (0.9-3.2) K/mm3 [place] # (Auto) 0.0 L (0.1-0.6) K/mm3 Eos # (Auto) 0.0 (0-0.3) K/mm3 Baso # (Auto) 0.0 (0.0-0.1) K/mm3 Abs Immat Gran (auto) 0.04 H (0.00-0.031) K/mm3 Absolute Neuts (auto) 7.0 H (1.3-6.7) K/mm3 Absolute Nucleated RBC 0.000 (0.0-0.012) K/mm3 Band Neutrophils % Not Reportable Nucleated RBC % 0.0 (0.0-0.2) % Platelet Estimate Slightly decreased (Adequate) Ovalocytes Occasional Schistocytes None seen PT 14.0 (11.1-14.7) Seconds INR 1.1 APTT 28.3 (22.3-36.8) Seconds Sodium 138 (137-145) mmol/L Potassium 4.1 (3.4-5.0) mmol/L Chloride 105 (98-107) mmol/L Carbon Dioxide 23 (22-30) mmol/L Anion Gap 10 (4-12) mmol/L BUN 30 H (9-20) mg/dL Creatinine 1.07 (0.7-1.3) mg/dL Estim Creat Clear Calc Not Reportable Estimated GFR > 60 (59 - ) Glucose 137 H (65-110) mg/dL Lactic Acid 3.3 H (0.7-2.0) mmol/L Calcium 9.7 (8.4-10.2) mg/dL Total Bilirubin 0.8 (0.2-1.3) mg/dL AST 33 (17-59) U/L ALT 24 (6-50) U/L Alkaline Phosphatase 116 (38-126) U/L C-Reactive Protein 3.7 H (<1.0) mg/dL Total Protein 7.0 (6.3-8.2) g/dL Albumin 3.8 (3.5-5.1) g/dL Urine Color Yellow (Yellow) Urine Appearance Cloudy H (Clear) Urine pH 5.5 (5.0-9.0) Ur Specific [place] 1.012 (1.001-1.035) Urine Protein 2+ H (Negative) mg/dL Urine Glucose (UA) Negative (Negative) mg/dL Urine Ketones Negative (Negative) mg/dL Ur Blood (Man) Non-hemolyzed trace (Negative) Urine Nitrate Negative (Negative) Urine Bilirubin Negative (Negative) Urine Urobilinogen 1.0 (<2.0) mg/dL Leukocyte Esterase Rfl 3+ H (Negative) STEFAN/UL Urine RBC 3-5 H (0-2) /hpf Urine WBC >100 H (0-3) /hpf Ur Squamous Epith Cells None seen (Few) /hpf Urine Bacteria 4+ H /hpf Urine Casts 0-2 Influenza A (RT-PCR) Negative (Negative) Influenza B (RT-PCR) Negative (Negative) RSV (RT-PCR) Negative (Negative) SARS-CoV-2 RNA (RT-PCR) Negative (Negative) Discharge Plan Discharge Clinical Impression: Hypoxia, Pneumonia, Rigor, Acute UTI Patient Disposition: Still a Patient Condition: Serious
[2025-07-30] MEDS: ALBUTEROL SULFATE NEB 2.5 MG/3 ML INH 5 MG INHALATION (13:52)
--- NOTE | 2025-07-30 14:21 | ECG_ITS ---
Test Date: 2025-07-30 14:21:55 Measurements Intervals [place] Rate: 109 P: 0 IL: 0 QRS: -51 QRSD: 142 T: 29 QT: 321 QTc: 433 Interpretive Statements ATRIAL FIBRILLATION WITH RAPID VENTRICULAR RESPONSE LEFT AXIS DEVIATION [QRS AXIS < -30] RIGHT BUNDLE BRANCH BLOCK [120+ ms QRS DURATION, UPRIGHT V1, 40+ ms S IN I/aVL/V4/V5/V6] Compared to ECG 10/28/2024 22:27:51 Left-axis deviation now present Sinus bradycardia no longer present First degree AV block no longer present Indeterminate axis no longer present Myocardial infarct finding no longer present Electronically Signed On 07-30-2025 20:02:14 CDT by Patrice Malik M.D.
[2025-07-30 14:59] LABS: Hematocrit 45.1 % (42.0-52.0); Hemoglobin 14.7 g/dL (14.0-18.0); Immature Granulocyte Percent A 0.5 % (0-0.5); Lymphocytes Absolute Auto 0.25 K/mm3 (0.9-3.2); Mean Corpuscular HGB Conc 32.6 g/dl (32-36); Mean Corpuscular Hemoglobin 29.9 pg (26-34); Mean Corpuscular Volume 91.9 fl (80-100); Nucleated Red Blood Cells Absolute Auto 0.000 K/mm3 (0.0-0.012); Nucleated Red Blood Cells Perc 0.0 % (0.0-0.2); Platelet Count Result 147 k/mm3 (150-375); Red Blood Count 4.91 M/mm3 (4.6-6.20); White Blood Count 7.4 K/mm3 (4.5-10.0)
[2025-07-30 15:06] LABS: Add Urine Microscopic? YES; Appearance Urine Cloudy (Clear); Glucose Urine UA Negative (Negative); Leukocyte Esterase Ur 3+ LEU/UL (Negative); Nitrate Urine Negative (Negative); Non Pathogenic Casts 0-2; Specific Grav Ur 1.012 (1.001-1.035)
[2025-07-30 15:11] LABS: INR 1.1; Prothrombin Time 14.0 Seconds (11.1-14.7)
[2025-07-30 15:12] LABS: Partial Thromboplastin Time 28.3 Seconds (22.3-36.8)
[2025-07-30 15:13] LABS: Alanine Aminotransferase 24 U/L (6-50); Albumin Level 3.8 g/dL (3.5-5.1); Alkaline Phosphatase 116 U/L (38-126); Anion Gap 10 mmol/L (4-12); Aspartate Amino Transferase 33 U/L (17-59); Bilirubin,Total 0.8 mg/dL (0.2-1.3); Blood Urea Nitrogen 30 mg/dL (9-20); CRP 3.7 mg/dL (<1.0); Calcium 9.7 mg/dL (8.4-10.2); Carbon Dioxide 23 mmol/L (22-30); Chloride 105 mmol/L (98-107); Estimated Glomerular Filt Rate > 60; Glucose 137 mg/dL (65-110); Potassium 4.1 mmol/L (3.4-5.0); Sodium 138 mmol/L (137-145); Total Protein 7.0 g/dL (6.3-8.2)
[2025-07-30] MEDS: cefTRIAXone 1 GM in SODIUM CHLORIDE 0.9% IV 50 ML 100 ML IVPB (15:14)
[2025-07-30] MEDS: AZITHROMYCIN IV 500 MG in SODIUM CHLORIDE 0.9% IV 250 ML IVPB (15:16)
[2025-07-30 15:18] LABS: Ovalocytes Occasional; Schistocytes None Seen
[2025-07-30] MEDS: ONDANSETRON INJ 4 MG/2 ML VIAL IV PUSH (15:18)
[2025-07-30 15:37] LABS: Influenza A QL RT-PCR Negative (Negative); Influenza B QL RT-PCR Negative (Negative); RSV RNA, RT-PCR Negative (Negative); SARS-CoV-2 RNA PCR Negative (Negative)
--- NOTE | 2025-07-30 16:15 | P.HP_ITS ---
H&P: HPI History of Present Illness Date/Time: 07/30/25 16:15 Chief Complaint: Chills and shortness of breath Narrative: 89-year-old male with past medical history of dementia, CABG, COPD, hypertension, CAD, prostate cancer, lung cancer, and gout presents to the hospital with chills and shortness of breath. Patient has been complaining about this since yesterday. The stated that this morning she noticed he was really weak with shortness of breath. So he presented to the emergency room. Denies nausea or vomiting. Lab work shows no leukocytosis, BUN of 30, glucose of 137, lactic acid 3.3, CRP of 3.7, UA with negative nitrates 3+ leukocyte esterase, over 100 wbc's, 4+ bacteria. Influenza A/B RSV and COVID negative. Chest x-ray shows bilateral pneumonia EKG shows atrial fibrillation with RVR rate of 109. Patient was tachypneic with a pulse ox below 88 present was placed on 3 L nasal cannula. Patient being admitted for UTI and pneumonia and was started on Rocephin and azithromycin and given 2 L of IV fluids in the emergency room. Review of Systems Review of Systems: 12 systems were reviewed and are negativ e except for as per HPI. [facility] Past Medical History Medical History (Updated 07/30/25 @ 16:24 by Shirley Maravilla, [employer]) BPH (benign prostatic hyperplasia) Overweight (BMI 25.0-29.9) Prostate CA Gout Arthritis Chronic GERD Lung cancer COPD (chronic obstructive pulmonary disease) HTN (hypertension) Hypercholesterolemia CAD (coronary artery disease) Surgical History Surgical History 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 Social History Social History Social History: Caffeine-coffe/tea/soda Smoking packs per day: 1 Smoking cigarettes per day: 20.0 Years smoked: 40 Smoking pack-years: 40.00 Smoking status: Former smoker Second hand tobacco smoke exposure: No Alcohol intake: current Drinks per week: 9 Alcohol use details: 1 GIN & TONIC/DAY Substance use: never Substance use type: does not use Lack of Transportation: No Lack of Food: Never True Current Housing: I Have Housing Concerned About Future Housing: No Difficulty Paying Gas/Electric Bills: No Difficulty Paying for Meds: No Currently Unemployed: No Education: Trade/Vocational Certificate Difficulty w/ Childcare or Family Care: No Living arrangements: with family Additional living arrangements comments: Gender identity (if verbalized by the patient): Male Sexual Orientation (if Verbalized by the Patient): Straight or Heterosexual Spiritual care concerns: No Meds Home Medications and Allergies Home Medications ?Medication ?Instructions ?Recorded ?Confirmed ?Type allopurinol 100 mg tablet 100 mg PO DAILY 10/11/20 History fexofenadine 180 mg tablet 180 mg PO DAILY 10/11/20 History tamsulosin 0.4 mg capsule 0.4 mg PO DAILY 10/11/20 History aspirin 81 mg tablet,delayed 81 mg PO DAILY 11/28/20 0 07/30/25 History release mlgpfqogrvgw-cszrzsjl-sqsfwx tablet 1 tablet PO DAILY 11/28/20 07/30/25 History omeprazole 20 mg capsule,delayed 20 mg PO QAM 11/28/20 07/30/25 History release prochlorperazine maleate 10 mg 10 mg PO Q8H PRN Nausea 07/26/21 07/30/25 History tablet (Compazine) albuterol sulfate 90 mcg/actuation 2 inh inhalation Q4 H PRN shortness 03/17/24 07/30/25 History aerosol inhaler of breath or wheezing cephalexin 250 mg capsule 250 mg PO HS 03/17/24 History fluticasone 250 mcg-salmeterol 50 1 inh inhalation BID 03/17/24 07/30/25 History mcg/dose blistr powdr for inhalation Held on 07/30/25. Instructions: .Provider Order furosemide 40 mg tablet 20 mg PO QAM 03/17/24 History metoprolol tartrate 50 mg tablet 50 mg PO BID 03/17/24 07/30/25 History potassium chloride 10 mEq 10 meq PO BID 03/17/2407/30 History capsule,extended release rosuvastatin 20 mg tablet 20 mg PO DAILY 03/17/24/04/28 History sacubitril 49 mg-valsartan 51 mg 1 tablet PO BID 03/1707/30/25 History tablet fluticasone fur. 200 mcg-umeclid 1 inh inhalation ANUSHKA Y 07/30/25 07/30/25 History 62.5 mcg-vilant 25 mcg inhalat.powder (Trelegy Ellipta) Allergies Allergy/AdvReac Type Severity Reaction Status Date / Time No Known Allergies Allergy Verified 03/22/25 11:33 Vital Signs Vital Signs - 24 hr 07/30/25 13:27 07/30/25 13:45 07/30/25 14:09 Temperature 99.2 F Pulse Rate 104 H 104 H 115 H Respiratory Rate 24 H 25 H Blood Pressure 140/71 Pulse Oximetry 92 Oxygen Delivery Room Air Oxygen Flow Rate 07/30/25 14:23 07/30/25 15:34 07/30/25 15:35 Temperature Pulse Rate 105 H Respiratory Rate 24 H Blood Pressure Pulse Oximetry 88 L 90 Oxygen Delivery Room Air Nasal Cannula Oxygen Flow Rate 2 07/30/25 15:35 Temperature Pulse Rate Respiratory Rate Blood Pressure Pulse Oximetry 95 Oxygen Delivery Nasal Cannula Oxygen Flow Rate 3 Exam Narrative: General: well appearing, appears stated age. HEENT: normocephalic, atraumatic. Mucous membranes moist. EOMI, PERRLA, bilateral sclera anicteric, no conjunctival injection. Neck supple without JVD, lymphadenopathy, or bruit. Respiratory: clear diminished to ascultation bilaterally. No rales/rhonic/wheezes. Cardiovascular: Regular rate and rhythm, normal S1-S2 upon ascultation. No murmurs, rubs, or clicks. PMI is nondisplaced, capillary refill less than 3 second. Abdomen: Soft, round, no pulsatile masses, nondistended and nontender. No rebound, no guarding. No CVA tenderness, no hepatosplenomegaly. Bowel sounds present to all four quadrants. No high pitch or tinkling sounds, resonant to percussion. Extremities: No cyanosis, clubbing, Pulses are palpable 2/2. Active ROM to all four extremities. Plus one edema Neuro: Alert and orientated x 4. PERRLA. Cranial nerves 2-12 intact without focal deficit. Skin: Warm, dry, and intact, without rash, erythema, or lesion. Psych: pleasant, cooperative, normal speech, normal affect, no hallucinations, no dysarthia H&P: Results Labs Labs: Short CBC 07/30/25 Range/Units 14:52 WBC 7.4 (4.5-10.0) K/mm3 Hgb 14.7 (14.0-18.0) g/dL Hct 45.1 (42.0-52.0) % Plt Count 147 L (150-375) k/mm3 BMP 07/30/25 14:52 Sodium 138 Potassium 4.1 Chloride 105 Carbon Dioxide 23 BUN 30 H Creatinine 1.07 Glucose 137 H Calcium 9.7 Liver Function 07/30/25 Range/Units 14:52 Total Bilirubin 0.8 (0.2-1.3) mg/dL AST 33 (17-59) U/L ALT 24 (6-50) U/L Alkaline Phosphatase 116 (38-126) U/L Albumin 3.8 (3.5-5.1) g/dL Urine 07/30/25 Range/Units 14:52 Urine Color Yellow (Yellow) Urine Appearance Cloudy H (Clear) Urine pH 5.5 (5.0-9.0) Ur Specific [place] 1.012 (1.001-1.035) Urine Protein 2+ H (Negative) mg/dL Urine Glucose (UA) Negative (Negative) mg/dL Assessment and Plan Assessment and plan (1) Acute UTI: Code(s): N39.0 - Urinary tract infection, site not specified Status: Acute Assessment and Plan: Rocephin IVF Cultures and sensitivities pending (2) Pneumonia: Code(s): J18.9 - Pneumonia, unspecified organism Status: Acute Assessment and Plan: Rocephin and azithromycin DuoNeb Guaifenesin Wean oxygen as able (3) Hypoxia: Code(s): R09.02 - Hypoxemia Status: Acute Assessment and Plan: Likely related to COPD and pneumonia Wean oxygen as able Continue home Lasix (4) Lactic acid acidosis: Code(s): E87.20 - Acidosis, unspecified Status: Acute Assessment and Plan: 2 L a and IVF given emergency room Repeat lactic now 1.5 (5) COPD (chronic obstructive pulmonary disease): Code(s): J44.9 - Chronic obstructive pulmonary disease, unspecified Status: Acute Assessment and Plan: Continue home inhalers (6) HTN (hypertension): Code(s): I10 - Essential (primary) hypertension Status: Acute Assessment and Plan: Holding hypertensive medications due to soft blood pressure (7) Prostate CA: Code(s): C61 - Malignant neoplasm of prostate Status: Acute Assessment and Plan: Continue Flomax (8) Gout: Code(s): M10.9 - Gout, unspecified Status: Acute Assessment and Plan: Continue allopurinol (9) CAD (coronary artery disease): Code(s): I25.10 - Atherosclerotic heart disease of [place] coronary artery without angina pectoris Status: Acute Assessment and Plan: Continue metoprolol and statin (10) Afib: Code(s): I48.91 - Unspecified atrial fibrillation Status: Acute Assessment and Plan: Continue metoprolol Quality VTE Prophylaxis VTE prophylaxis: mechanical ordered and pharmacologic ordered Hospitalist [facility] Advance Care Plan I have confirmed that the patient's Advanced Care Plan is present, code status is documented, or surrogate decision maker is listed in patient medical record.: Yes Medication Reconciliation I have utilized all available resources to obtain, update and review the patients current medications (includes all prescriptions, OTC, herbals, cannabis, and nutritional supplements).: Yes
[2025-07-30] MEDS: LACTATED RINGERS 1,000 ML 999 ML IV CONT ×2 (16:35→16:37)
--- NOTE | 2025-07-30 17:12 | ADMGEN ---
This patient, Cedric Mckinney, was admitted to 2 Medical Room 257-01. Patient/family oriented to hospital policies and general routines including ID bracelet, bed and alarms, visiting hours, pain management, procedures, bathroom and other care routines, personal items, smoking policy, room service/diet, and visiting hours. Information on how to activate the Rapid Response Team has been discussed. Patient/Family are encouraged to report perceived risks to care and to ask questions if they do not understand what they are told or what they should do.
[2025-07-30] MEDS: SODIUM CHLORIDE 0.9% IV 1,000 ML 100 ML IV CONT (17:32)
[2025-07-30 18:34] LABS: Anion Gap 6 mmol/L (4-12); Blood Urea Nitrogen 32 mg/dL (9-20); Calcium 9.0 mg/dL (8.4-10.2); Carbon Dioxide 24 mmol/L (22-30); Chloride 105 mmol/L (98-107); Estimated Glomerular Filt Rate > 60; Glucose 149 mg/dL (65-110); Potassium 3.9 mmol/L (3.4-5.0); Sodium 135 mmol/L (137-145)
[2025-07-30] MEDS: guaiFENesin 12 HR 600 MG TABCR 1200 MG PO (20:16)
[2025-07-30] MEDS: PROCHLORPERAZINE MALEATE 5 MG TABLET 10 MG PO (20:17)
[2025-07-30] MEDS: ALBUTEROL SULFATE NEB 2.5 MG/3 ML INH INHALATION (20:24)
[2025-07-30] MEDS: IPRATROPIUM 0.5 MG/ALBUTEROL SULFATE 2.5 MG AMPUL.NEB 3 ML INHALATION (20:24)
[2025-07-31] VITALS (19 sets, daily range): BP systolic 112–117; BP diastolic 50–60; PULSE 73–99; RESP 14–20; TEMP 36.2–36.7; O2SAT 94–95
[2025-07-31] MEDS: METOPROLOL TARTRATE 50 MG TAB PO ×3 (00:32→20:50)
[2025-07-31] MEDS: ALBUTEROL SULFATE NEB 2.5 MG/3 ML INH INHALATION ×3 (02:06→13:52)
[2025-07-31] MEDS: IPRATROPIUM 0.5 MG/ALBUTEROL SULFATE 2.5 MG AMPUL.NEB 3 ML INHALATION ×4 (02:06→20:40)
[2025-07-31] MEDS: SODIUM CHLORIDE 0.9% IV 1,000 ML 100 ML IV CONT ×2 (06:14→20:53)
[2025-07-31 06:40] LABS: Hematocrit 37.7 % (42.0-52.0); Hemoglobin 11.9 g/dL (14.0-18.0); Immature Granulocyte Percent A 0.4 % (0-0.5); Lymphocytes Absolute Auto 0.59 K/mm3 (0.9-3.2); Mean Corpuscular HGB Conc 31.6 g/dl (32-36); Mean Corpuscular Hemoglobin 30.3 pg (26-34); Mean Corpuscular Volume 95.9 fl (80-100); Nucleated Red Blood Cells Absolute Auto 0.000 K/mm3 (0.0-0.012); Nucleated Red Blood Cells Perc 0.0 % (0.0-0.2); Platelet Count Result 130 k/mm3 (150-375); Red Blood Count 3.93 M/mm3 (4.6-6.20); White Blood Count 11.8 K/mm3 (4.5-10.0)
--- NOTE | 2025-07-31 08:52 | P.PNIM_ITS ---
Progress Note: A&P Assessment and Plan (1) Acute UTI: Code(s): N39.0 - Urinary tract infection, site not specified Status: Acute Assessment and Plan: Continue Rocephin IVF Cultures and sensitivities pending (2) Pneumonia: Code(s): J18.9 - Pneumonia, unspecified organism Status: Acute Assessment and Plan: Rocephin and azithromycin DuoNeb Guaifenesin Wean oxygen as able (3) Hypoxia: Code(s): R09.02 - Hypoxemia Status: Acute Assessment and Plan: Likely related to COPD and pneumonia Wean oxygen as able Continue home Lasix (4) Lactic acid acidosis: Code(s): E87.20 - Acidosis, unspecified Status: Acute Assessment and Plan: 2 L a and IVF given emergency room Repeat lactic now 1.5 (5) COPD (chronic obstructive pulmonary disease): Code(s): J44.9 - Chronic obstructive pulmonary disease, unspecified Status: Acute Assessment and Plan: Continue home inhalers (6) HTN (hypertension): Code(s): I10 - Essential (primary) hypertension Status: Acute Assessment and Plan: Holding hypertensive medications due to soft blood pressure (7) Prostate CA: Code(s): C61 - Malignant neoplasm of prostate Status: Acute Assessment and Plan: Continue Flomax (8) Gout: Code(s): M10.9 - Gout, unspecified Status: Acute Assessment and Plan: Continue allopurinol (9) CAD (coronary artery disease): Code(s): I25.10 - Atherosclerotic heart disease of [place] coronary artery without angina pectoris Status: Acute Assessment and Plan: Continue metoprolol and statin (10) Afib: Code(s): I48.91 - Unspecified atrial fibrillation Status: Acute Assessment and Plan: Continue metoprolol Time Spent With Patient Time: 55 minutes Subjective Date/time seen: 07/31/25 08:52 Interval history: Overnight events WBC 11.8. H&H 14.7/45.1>11.9/37.7 Cultures pending Reports shortness of breath at baseline but has a new productive cough in the last week. Reports generalized weakness. Had a fall 2 weeks ago. Will consider SNF Reason for hospitalization 89 y/o man hx dementia, CAD s/p CABG, COPD, Prostate and Lung cancer, who presented to the hospital for shortness of breath. Admitted for UTI and pneumonia Review of Systems Review of Systems: 12 systems were reviewed and are negativ e except for as per HPI. Exam Narrative: General: well appearing, appears stated age. HEENT: normocephalic, atraumatic. Mucous membranes moist. EOMI, PERRLA, bilateral sclera anicteric, no conjunctival injection. Neck supple without JVD, lymphadenopathy, or bruit. Respiratory: clear diminished to ascultation bilaterally. No rales/rhonic/wheezes. Cardiovascular: Regular rate and rhythm, normal S1-S2 upon ascultation. No murmurs, rubs, or clicks. PMI is nondisplaced, capillary refill less than 3 second. Abdomen: Soft, round, no pulsatile masses, nondistended and nontender. No rebound, no guarding. No CVA tenderness, no hepatosplenomegaly. Bowel sounds present to all four quadrants. No high pitch or tinkling sounds, resonant to percussion. Extremities: No cyanosis, clubbing, Pulses are palpable 2/2. Active ROM to all four extremities. Plus one edema Neuro: Alert and orientated x 4. PERRLA. Cranial nerves 2-12 intact without focal deficit. Skin: Warm, dry, and intact, without rash, erythema, or lesion. Psych: pleasant, cooperative, normal speech, normal affect, no hallucinations, no dysarthia Objective Data Vital Signs Vital Signs: Vital Signs - 24 hr 07/30/25 13:27 07/30/25 13:45 07/30/25 14:00 Temperature 99.2 F Pulse Rate 104 H 104 H Respiratory Rate 24 H Blood Pressure 140/71 Pulse Oximetry 92 91 Oxygen Delivery Room Air Room Air Oxygen Flow Rate 07/30/25 14:00 07/30/25 14:09 07/30/25 14:23 Temperature Pulse Rate 99 115 H 105 H Respiratory Rate 31 H 25 H 24 H Blood Pressure 136/114 H Pulse Oximetry 92 Oxygen Delivery Oxygen Flow Rate 07/30/25 15:00 07/30/25 15:34 07/30/25 15:35 Temperature Pulse Rate 114 H Respiratory Rate 34 H Blood Pressure 120/72 Pulse Oximetry 96 88 L 90 Oxygen Delivery Room Air Nasal Cannula Oxygen Flow Rate 2 07/30/25 15:35 07/30/25 16:00 07/30/25 16:30 Temperature Pulse Rate 107 H 104 H Respiratory Rate 29 H 28 H Blood Pressure 103/54 L 114/61 Pulse Oximetry 95 95 95 Oxygen Delivery Nasal Cannula Oxygen Flow Rate 3 07/30/25 16:56 07/30/25 17:30 07/30/25 20:00 Temperature Pulse Rate 104 H 92 Respiratory Rate 28 H 20 Blood Pressure 114/61 Pulse Oximetry 95 96 96 Oxygen Delivery Nasal Cannula Nasal Cannula Oxygen Flow Rate 3 3 07/30/25 20:00 07/30/25 20:07 07/30/25 20:25 Temperature 98.1 F Pulse Rate 83 93 93 Respiratory Rate 20 20 Blood Pressure 104/52 L Pulse Oximetry 96 Oxygen Delivery Oxygen Flow Rate 07/30/25 20:28 07/30/25 20:38 07/31/25 00:00 Temperature Pulse Rate 96 83 Respiratory Rate 20 Blood Pressure Pulse Oximetry 96 Oxygen Delivery Nasal Cannula Oxygen Flow Rate 3 07/31/25 00:32 07/31/25 02:06 07/31/25 02:17 Temperature Pulse Rate 84 92 99 Respiratory Rate 20 20 Blood Pressure Pulse Oximetry Oxygen Delivery Oxygen Flow Rate 07/31/25 04:00 07/31/25 04:55 Temperature 97.1 F L Pulse Rate 73 76 Respiratory Rate 20 Blood Pressure 117/60 Pulse Oximetry 94 Oxygen Delivery Oxygen Flow Rate Intake/Output Intake/Output: Intake & Output 07/28/25 07/29/25 07/30/25 07/31/25 23:59 23:59 23:59 23:59 Intake Total 300 1300 Output Total 750 400 Balance -450 900 Meds/Results Medications: Active Medications Generic Name Dose Route Start Last Admin Trade Name Freq PRN Reason Stop Dose Admin Acetaminophen 650 mg 07/30/25 16:18 Acetaminophen 325 Mg Tablet PO Q4H PRN Mild Pain (1-3) or Fever Albuterol 2.5 mg 07/30/25 20:00 07/31/25 02:06 Albuterol Sulfate Neb 2.5 Mg/3 Ml Inh INHALATION 2.5 mg Q6HRT NIGEL Administration Albuterol/Ipratropium 3 ml 07/30/25 20:00 07/31/25 02:06 Ipratropium 0.5 Mg/Albuterol Sulfate 2.5 Mg Ampul.Neb 3 Ml INHALATION 3 ml Q6HRT NIGEL Administration Allopurinol 100 mg 07/31/25 09:00 Allopurinol 100 Mg Tablet PO DAILY [facility] Aspirin 81 mg 07/31/25 09:00 Aspirin 81 Mg Enteric Tablet PO DAILY [facility] Docusate Sodium 100 mg 07/30/25 16:18 Docusate Sodium 100 Mg Capsule PO BID PRN Constipation Enoxaparin Sodium 40 mg 07/31/25 09:00 Enoxaparin 40 Mg/0.4 Ml Syringe SUB-Q DAILY [facility] Fluticasone/Umeclidinium/Vilanterol 1 puff 07/31/25 09:00 Fluticasone/Umeclidin/Vilanter 200-62.5-25 Mcg Ellipta INHALATION DAILY [facility] Furosemide 20 mg 07/31/25 09:00 Furosemide 20 Mg Tablet PO QAM [facility] Guaifenesin 1,200 mg 07/30/25 21:00 07/30/25 20:16 Guaifenesin 12 Hr 600 Mg Tabcr PO 1,200 mg Q12HR NIGEL Administration Ceftriaxone Sodium 1 gm/ 50 mls @ 100 mls/hr 07/31/25 16:00 Sodium Chloride IVPB Q24H NIGEL Azithromycin 500 mg/ Sodium 250 mls @ 250 mls/hr 07/31/25 17:00 Chloride IVPB 08/03/25 17:59 Q24H NIGEL Sodium Chloride 1,000 mls @ 100 mls/hr 07/30/25 16:20 07/31/25 06:14 Normal Saline Iv IV CONT 100 mls/hr .Q10H NIGEL Administration Loratadine 10 mg 07/31/25 09:00 Loratadine 10 Mg Tablet PO DAILY NIGEL Metoprolol Tartrate 50 mg 07/30/25 21:00 07/31/25 00:32 Metoprolol Tartrate 50 Mg Tab PO 50 mg Q12HR NIGEL Administration Pantoprazole Sodium 40 mg 07/31/25 09:00 Pantoprazole 40 Mg Tablet PO QAM [facility] Potassium Chloride 10 meq 07/31/25 09:00 Potassium Chloride 10 Meq Er Tablet PO BID [facility] Prochlorperazine Maleate 10 mg 07/30/25 19:53 07/30/25 20:17 Prochlorperazine Maleate 5 Mg Tablet PO 10 mg Q6H PRN Administration Nausea And Vomiting Rosuvastatin Calcium 20 mg 07/31/25 09:00 Rosuvastatin 20 Mg Tablet PO DAILY [facility] Tamsulosin HCl 0.4 mg 07/31/25 09:00 Tamsulosin Hcl 0.4 Mg Capsule PO DAILY [facility] Trimethobenzamide HCl 200 mg 07/30/25 18:04 Trimethobenzamide Hcl 200 Mg/2 Ml Vial IM Q6H PRN Nausea And Vomiting Radiology Results: ITS Impressions Chest X-Ray 07/30/25 14:35 Impression: Early bilateral pneumonia Labs Labs: Laboratory Results - last 24 hr 07/30/25 07/30/25 07/31/25 14:52 18:10 06:34 WBC 7.4 11.8 H RBC 4.91 3.93 L Hgb 14.7 11.9 L Hct 45.1 37.7 L MCV 91.9 95.9 MCH 29.9 30.3 MCHC 32.6 31.6 L RDW 13.3 13.6 Plt Count 147 L 130 L MPV 10.2 10.4 Immature Gran % (Auto) 0.5 0.4 Neut % (Auto) 95.0 H 87.6 H Lymph % (Auto) 3.4 L 5.0 L Terry % (Auto) 0.4 L 6.6 Eos % (Auto) 0.3 0.1 Baso % (Auto) 0.4 0.3 Lymph # (Auto) 0.25 L 0.59 L Terry # (Auto) 0.0 L 0.8 H Eos # (Auto) 0.0 0.0 Baso # (Auto) 0.0 0.0 Abs Immat Gran (auto) 0.04 H 0.05 H Absolute Neuts (auto) 7.0 H 10.3 H Absolute Nucleated RBC 0.000 0.000 Band Neutrophils % Not Reportable Nucleated RBC % 0.0 0.0 Platelet Estimate Slightly decreased Ovalocytes Occasional Schistocytes None seen PT 14.0 INR 1.1 APTT 28.3 Sodium 138 135 L Potassium 4.1 3.9 Chloride 105 105 Carbon Dioxide 23 24 Anion Gap 10 6 BUN 30 H 32 H Creatinine 1.07 1.03 Estim Creat Clear Calc Not Reportable Not Reportable Estimated GFR > 60 > 60 Glucose 137 H 149 H Lactic Acid 3.3 H 1.5 Calcium 9.7 9.0 Total Bilirubin 0.8 AST 33 ALT 24 Alkaline Phosphatase 116 C-Reactive Protein 3.7 H Total Protein 7.0 Albumin 3.8 Urine Color Yellow Urine Appearance Cloudy H Urine pH 5.5 Ur Specific [place] 1.012 Urine Protein 2+ H Urine Glucose (UA) Negative Urine Ketones Negative Ur Blood (Man) Non-hemolyzed trace Urine Nitrate Negative Urine Bilirubin Negative Urine Urobilinogen 1.0 Leukocyte Esterase Rfl 3+ H Urine RBC 3-5 H Urine WBC >100 H Ur Squamous Epith Cells None seen Urine Bacteria 4+ H Urine Casts 0-2 Influenza A (RT-PCR) Negative Influenza B (RT-PCR) Negative RSV (RT-PCR) Negative SARS-CoV-2 RNA (RT-PCR) Negative Quality VTE Prophylaxis VTE prophylaxis: mechanical ordered and pharmacologic ordered Hospitalist [facility] Advance Care Plan I have confirmed that the patient's Advanced Care Plan is present, code status is documented, or surrogate decision maker is listed in patient medical record.: Yes Medication Reconciliation I have utilized all available resources to obtain, update and review the patients current medications (includes all prescriptions, OTC, herbals, cannabis, and nutritional supplements).: Yes
[2025-07-31] MEDS: FUROSEMIDE 20 MG TABLET PO (09:25)
[2025-07-31] MEDS: TAMSULOSIN HCL 0.4 MG CAPSULE PO (09:25)
[2025-07-31] MEDS: guaiFENesin 12 HR 600 MG TABCR 1200 MG PO ×2 (09:25→20:50)
[2025-07-31] MEDS: PANTOPRAZOLE 40 MG TABLET PO (09:25)
[2025-07-31] MEDS: LORATADINE 10 MG TABLET PO (09:26)
[2025-07-31] MEDS: ASPIRIN 81 MG ENTERIC TABLET PO (09:26)
[2025-07-31] MEDS: ROSUVASTATIN 20 MG TABLET PO (09:26)
[2025-07-31] MEDS: POTASSIUM CHLORIDE 10 MEQ ER TABLET PO ×2 (09:26→17:53)
[2025-07-31] MEDS: ENOXAPARIN 40 MG/0.4 ML SYRINGE SUB-Q (09:38)
[2025-07-31] MEDS: FLUTICASONE/UMECLIDIN/VILANTER 200-62.5-25 MCG ELLIPTA 1 PUFF INHALATION (13:53)
[2025-07-31] MEDS: cefTRIAXone 1 GM in SODIUM CHLORIDE 0.9% IV 50 ML 100 ML IVPB (17:33)
[2025-07-31] MEDS: AZITHROMYCIN IV 500 MG in SODIUM CHLORIDE 0.9% IV 250 ML IVPB (18:32)
[2025-08-01] VITALS (18 sets, daily range): BP systolic 128–139; BP diastolic 59–63; PULSE 69–86; RESP 16–20; TEMP 36.5–36.8; O2SAT 95–98
[2025-08-01] MEDS: IPRATROPIUM 0.5 MG/ALBUTEROL SULFATE 2.5 MG AMPUL.NEB 3 ML INHALATION ×3 (01:43→14:57)
[2025-08-01] MEDS: ALBUTEROL SULFATE NEB 2.5 MG/3 ML INH INHALATION (04:24)
[2025-08-01] MEDS: SODIUM CHLORIDE 0.9% IV 1,000 ML 100 ML IV CONT ×2 (06:49→16:51)
[2025-08-01] MEDS: ASPIRIN 81 MG ENTERIC TABLET PO (08:41)
[2025-08-01] MEDS: LORATADINE 10 MG TABLET PO (08:41)
[2025-08-01] MEDS: FUROSEMIDE 20 MG TABLET PO (08:41)
[2025-08-01] MEDS: PANTOPRAZOLE 40 MG TABLET PO (08:42)
[2025-08-01] MEDS: ENOXAPARIN 40 MG/0.4 ML SYRINGE SUB-Q (08:42)
[2025-08-01] MEDS: POTASSIUM CHLORIDE 10 MEQ ER TABLET PO ×2 (08:42→16:51)
[2025-08-01] MEDS: ROSUVASTATIN 20 MG TABLET PO (08:42)
[2025-08-01] MEDS: METOPROLOL TARTRATE 50 MG TAB PO ×2 (08:42→20:14)
[2025-08-01] MEDS: TAMSULOSIN HCL 0.4 MG CAPSULE PO (08:42)
[2025-08-01] MEDS: guaiFENesin 12 HR 600 MG TABCR 1200 MG PO ×2 (08:42→20:14)
--- NOTE | 2025-08-01 08:53 | P.PNIM_ITS ---
Progress Note: A&P Assessment and Plan (1) Acute UTI: Code(s): N39.0 - Urinary tract infection, site not specified Status: Acute Assessment and Plan: UTI Chronic urinary retention Hx prostate CA Follows with urology outpatient Straight caths 5 times a day at home Reports previously on daily cephalexin for prophylaxis, but outpatient urology stopped two months ago. This is the first UTI he has had in years and first since stopping cephalexin Continue Rocephin IVF --Check post void residual --Continue Straight cath q4 --Cultures and sensitivities pending --Called Dr. Tse with urology and ok to restart Cephalexin for prophylaxis after current treatment for UTI/Bacteremia completed (did not consult formally) (2) Sepsis: Code(s): A41.9 - Sepsis, unspecified organism Status: Acute Assessment and Plan: Met criteria for sepsis with tachycardia, elevated white count and UTI Blood cultures positive--follow results (3) Bacteremia: Code(s): R78.81 - Bacteremia Status: Acute Assessment and Plan: 07/30 Blood cultures + 1/2 GNB, 2 strains --Follow final cultures --Follow final blood cultures (4) Pneumonia: Code(s): J18.9 - Pneumonia, unspecified organism Status: Acute Assessment and Plan: --Continue Rocephin and azithromycin DuoNeb Guaifenesin On RA (5) Hypoxia: Code(s): R09.02 - Hypoxemia Status: Acute Assessment and Plan: --Likely related to COPD and pneumonia Wean oxygen as able Continue home Lasix (6) Lactic acid acidosis: Code(s): E87.20 - Acidosis, unspecified Status: Acute Assessment and Plan: 2 L a and IVF given emergency room Repeat lactic now 1.5 (7) COPD (chronic obstructive pulmonary disease): Code(s): J44.9 - Chronic obstructive pulmonary disease, unspecified Status: Acute Assessment and Plan: Continue home Trelegy, albuterol prn (8) HTN (hypertension): Code(s): I10 - Essential (primary) hypertension Status: Acute Assessment and Plan: Holding hypertensive medications due to soft blood pressure (9) Prostate CA: Code(s): C61 - Malignant neoplasm of prostate Status: Acute Assessment and Plan: --Continue Flomax --urology follow up (10) Gout: Code(s): M10.9 - Gout, unspecified Status: Acute Assessment and Plan: --Continue allopurinol (11) CAD (coronary artery disease): Code(s): I25.10 - Atherosclerotic heart disease of [place] coronary artery without angina pectoris Status: Acute Assessment and Plan: --Continue ASA and statin (12) Afib: Code(s): I48.91 - Unspecified atrial fibrillation Status: Acute Assessment and Plan: --Continue metoprolol --Start eliquis --TTE Time Spent With Patient Time: 56 minutes Subjective Date/time seen: 08/01/25 08:53 Interval history: Overnight events UA + 100WBC, 4+ bacteria, Culture is growing GNB's Blood cultures /2 GNB. Afib new per discussion with patient and family and chart review. TSH normal PT/OT recs for possible SNF NSR on tele Reason for hospitalization 89 y/o man hx dementia, CAD s/p CABG, COPD, Prostate and Lung cancer, who presented to the hospital for shortness of breath, but also reports this is chronic for him. Has generalized weakness. Admitted for UTI and pneumonia, bacteremic. Also has new afib so started eliquis. Reports shortness of breath at baseline but has a new productive cough in the last week. Had a fall 2 weeks ago. Considering SNF Review of Systems Review of Systems: 12 systems were reviewed and are negativ e except for as per HPI. Exam Narrative: General: well appearing, appears stated age. HEENT: normocephalic, atraumatic. Mucous membranes moist. EOMI, PERRLA, bilateral sclera anicteric, no conjunctival injection. Neck supple without JVD, lymphadenopathy, or bruit. Respiratory: clear diminished to ascultation bilaterally. No rales/rhonic/wheezes. Cardiovascular: Regular rate and rhythm, normal S1-S2 upon auscultation. No murmurs, rubs, or clicks. PMI is nondisplaced, capillary refill less than 3 second. Abdomen: Soft, round, no pulsatile masses, nondistended and nontender. No rebound, no guarding. No CVA tenderness, no hepatosplenomegaly. Bowel sounds p resent to all four quadrants. No high pitch or tinkling sounds, resonant to percussion. Extremities: No cyanosis, clubbing, Pulses are palpable 2/2. Active ROM to all four extremities. Plus one edema Neuro: Alert and orientated x 4. PERRLA. Cranial nerves 2-12 intact without focal deficit. Skin: Warm, dry, and intact, without rash, erythema, or lesion. Psych: pleasant, cooperative, normal speech, normal affect, no hallucinations, no dysarthia Objective Data Vital Signs Vital Signs: Vital Signs - 24 hr 07/31/25 09:25 07/31/25 09:45 07/31/25 09:51 Temperature Pulse Rate 82 Respiratory Rate 17 Blood Pressure Pulse Oximetry 94 Oxygen Delivery Room Air Room Air 07/31/25 09:55 07/31/25 11:52 07/31/25 12:00 Temperature Pulse Rate 92 74 Respiratory Rate 18 Blood Pressure Pulse Oximetry Oxygen Delivery Room Air 07/31/25 13:53 07/31/25 14:00 07/31/25 14:00 Temperature 97.9 F Pulse Rate 90 94 82 Respiratory Rate 16 16 20 Blood Pressure 114/50 L Pulse Oximetry 95 Oxygen Delivery 07/31/25 16:00 07/31/25 20:00 07/31/25 20:00 Temperature Pulse Rate 82 86 85 Respiratory Rate 16 Blood Pressure Pulse Oximetry 95 Oxygen Delivery Room Air 07/31/25 20:40 07/31/25 20:50 07/31/25 20:51 Temperature Pulse Rate 86 91 86 Respiratory Rate 16 16 Blood Pressure Pulse Oximetry Oxygen Delivery 07/31/25 22:08 08/01/25 00:00 08/01/25 01:44 Temperature 98.1 F Pulse Rate 92 79 86 Respiratory Rate 14 16 Blood Pressure 112/60 Pulse Oximetry 94 Oxygen Delivery 08/01/25 01:50 08/01/25 04:00 08/01/25 07:05 Temperature 97.7 F Pulse Rate 86 81 78 Respiratory Rate 16 16 Blood Pressure 128/63 Pulse Oximetry 98 Oxygen Delivery 08/01/25 08:42 Temperature Pulse Rate 78 Respiratory Rate Blood Pressure Pulse Oximetry Oxygen Delivery Intake/Output Intake/Output: Intake & Output 07/29/25 07/30/25 07/31/25 08/01/25 23:59 23:59 23:59 23:59 Intake Total 300 5840 1293.3 Output Total 750 1300 650 Balance -450 4540 643.3 Meds/Results Medications: Active Medications Generic Name Dose Route Start Last Admin Trade Name Freq PRN Reason Stop Dose Admin Acetaminophen 650 mg 07/30/25 16:18 Acetaminophen 325 Mg Tablet PO Q4H PRN Mild Pain (1-3) or Fever Albuterol/Ipratropium 3 ml 07/30/25 20:00 08/01/25 01:43 Ipratropium 0.5 Mg/Albuterol Sulfate 2.5 Mg Ampul.Neb 3 Ml INHALATION 3 ml Q6HRT NIGEL Administration Allopurinol 100 mg 07/31/25 09:00 08/01/25 08:41 Allopurinol 100 Mg Tablet PO 100 mg DAILY NIGEL Administration Aspirin 81 mg 07/31/25 09:00 08/01/25 08:41 Aspirin 81 Mg Enteric Tablet PO 81 mg DAILY NIGEL Administration Docusate Sodium 100 mg 07/30/25 16:18 Docusate Sodium 100 Mg Capsule PO BID PRN Constipation Enoxaparin Sodium 40 mg 07/31/25 09:00 08/01/25 08:42 Enoxaparin 40 Mg/0.4 Ml Syringe SUB-Q 40 mg DAILY NIGEL Administration Fluticasone/Umeclidinium/Vilanterol 1 puff 07/31/25 09:00 07/31/25 13:53 Fluticasone/Umeclidin/Vilanter 200-62.5-25 Mcg Ellipta INHALATION 1 puff DAILY NIGEL Administration Furosemide 20 mg 07/31/25 09:00 08/01/25 08:41 Furosemide 20 Mg Tablet PO 20 mg QAM NIGEL Administration Guaifenesin 1,200 mg 07/30/25 21:00 08/01/25 08:42 Guaifenesin 12 Hr 600 Mg Tabcr PO 1,200 mg Q12HR NIGEL Administration Ceftriaxone Sodium 1 gm/ 50 mls @ 100 mls/hr 07/31/25 16:00 07/31/25 18:03 Sodium Chloride IVPB Infused Q24H NIGEL Infusion Azithromycin 500 mg/ Sodium 250 mls @ 250 mls/hr 07/31/25 17:00 07/31/25 19:32 Chloride IVPB 08/03/25 17:59 Infused Q24H NIGEL Infusion Sodium Chloride 1,000 mls @ 100 mls/hr 07/30/25 16:20 08/01/25 06:49 Normal Saline Iv IV CONT 100 mls/hr .Q10H NIGEL Administration Loratadine 10 mg 07/31/25 09:00 08/01/25 08:41 Loratadine 10 Mg Tablet PO 10 mg DAILY NIGEL Administration Metoprolol Tartrate 50 mg 07/30/25 21:00 08/01/25 08:42 Metoprolol Tartrate 50 Mg Tab PO 50 mg Q12HR NIGEL Administration Pantoprazole Sodium 40 mg 07/31/25 09:00 08/01/25 08:42 Pantoprazole 40 Mg Tablet PO 40 mg QAM NIGEL Administration Potassium Chloride 10 meq 07/31/25 09:00 08/01/25 08:42 Potassium Chloride 10 Meq Er Tablet PO 10 meq BID NIGEL Administration Prochlorperazine Maleate 10 mg 07/30/25 19:53 07/30/25 20:17 Prochlorperazine Maleate 5 Mg Tablet PO 10 mg Q6H PRN Administration Nausea And Vomiting Rosuvastatin Calcium 20 mg 07/31/25 09:00 08/01/25 08:42 Rosuvastatin 20 Mg Tablet PO 20 mg DAILY NIGEL Administration Tamsulosin HCl 0.4 mg 07/31/25 09:00 08/01/25 08:42 Tamsulosin Hcl 0.4 Mg Capsule PO 0.4 mg DAILY NIGEL Administration Trimethobenzamide HCl 200 mg 07/30/25 18:04 Trimethobenzamide Hcl 200 Mg/2 Ml Vial IM Q6H PRN Nausea And Vomiting Radiology Results: ITS Impressions Chest X-Ray 07/30/25 14:35 Impression: Early bilateral pneumonia Quality VTE Prophylaxis VTE prophylaxis: mechanical ordered and pharmacologic ordered Hospitalist MIPS Advance Care Plan I have confirmed that the patient's Advanced Care Plan is present, code status is documented, or surrogate decision maker is listed in patient medical record.: Yes Medication Reconciliation I have utilized all available resources to obtain, update and review the patients current medications (includes all prescriptions, OTC, herbals, cannabis, and nutritional supplements).: Yes
[2025-08-01] MEDS: FLUTICASONE/UMECLIDIN/VILANTER 200-62.5-25 MCG ELLIPTA 1 PUFF INHALATION (08:59)
[2025-08-01 09:25] LABS: Hematocrit 37.8 % (42.0-52.0); Hemoglobin 12.0 g/dL (14.0-18.0); Immature Granulocyte Percent A 0.4 % (0-0.5); Immature Platelet Fraction Pct 2.3 % (0.9-11.2); Lymphocytes Absolute Auto 0.79 K/mm3 (0.9-3.2); Mean Corpuscular HGB Conc 31.7 g/dl (32-36); Mean Corpuscular Hemoglobin 30.3 pg (26-34); Mean Corpuscular Volume 95.5 fl (80-100); Nucleated Red Blood Cells Absolute Auto 0.000 K/mm3 (0.0-0.012); Nucleated Red Blood Cells Perc 0.0 % (0.0-0.2); Platelet Count Result 118 k/mm3 (150-375); Red Blood Count 3.96 M/mm3 (4.6-6.20); White Blood Count 7.4 K/mm3 (4.5-10.0)
[2025-08-01 09:49] LABS: Anion Gap 4 mmol/L (4-12); Blood Urea Nitrogen 30 mg/dL (9-20); Calcium 8.9 mg/dL (8.4-10.2); Carbon Dioxide 23 mmol/L (22-30); Chloride 109 mmol/L (98-107); Estimated Glomerular Filt Rate > 60; Glucose 184 mg/dL (65-110); Potassium 4.3 mmol/L (3.4-5.0); Sodium 136 mmol/L (137-145)
[2025-08-01] MEDS: SACUBITRIL/VALSARTAN 49-51 MG TABLET 1 TABLET PO ×2 (13:14→20:16)
[2025-08-01 13:28] LABS: Thyroid Stimulating Hormone Reflex 2.020 uIU/mL (0.465-4.68)
[2025-08-01] MEDS: cefTRIAXone 1 GM in SODIUM CHLORIDE 0.9% IV 50 ML 100 ML IVPB (16:50)
[2025-08-01] MEDS: AZITHROMYCIN IV 500 MG in SODIUM CHLORIDE 0.9% IV 250 ML IVPB (18:42)
--- NOTE | 2025-08-01 21:57 | PCRCNOTE ---
Window of time for administration has passed. See next scheduled administration.
[2025-08-02] VITALS (18 sets, daily range): BP systolic 118–143; BP diastolic 56–62; PULSE 67–92; RESP 16–20; TEMP 36.5–37.1; O2SAT 93–95
--- NOTE | 2025-08-02 | ECHO_ITS ---
Patient Info Name: Cedric Mckinney Age: 89 years : 1935 Gender: Male Ht: 70 in Wt: 201 lbs BSA: 2.14 m2 HR: 83 bpm BP: 118 / 56 mmHg Heart Rhythm: Sinus Rhythm Technical Quality: Fair Exam Date: 08/02/2025 1:51 PM Patient Status: I Admit Date: 07/30/2025 Exam Type: CA echo dop color flow w con Complete two-dimensional, color flow and Doppler transthoracic echocardiogram is performed with contrast to opacify the left ventricle and to improve the deliniation of the left ventricle endocardial borders. Staff Referring Physician: Hood Burgos Ammonia Print Operator: Kristen Marcelino Attending Provider: Brian Chacko Contrast/Agitated Saline Contrast/Ag. Saline: Definity Amount: 2.00 ml Administered By: Kristen Marcelino Existing IV Access: Yes IV Access Condition: patent with no signs of infiltration Summary 1. Left ventricular systolic function is normal, estimated at 55-60. 2. The left ventricular diastolic function is grade I diastolic dysfunction. 3. Left atrial chamber dimension is normal. 4. There is mild aortic valve calcification. 5. There is mild mitral valve regurgitation. 6. There is mild tricuspid valve regurgitation. 7. No pulmonary hypertension, estimated pulmonary arterial systolic pressure is 32 mmHg. 8. There is mild pulmonic regurgitation. Left Ventricle Left ventricular chamber dimension is normal. Left ventricular systolic function is normal, estimated at 55-60. There is no increased left ventricular wall thickness. Left ventricular septal wall motion is normal. The left ventricular diastolic function is grade I diastolic dysfunction. Right Ventricle Right ventricular chamber dimension is normal. Right ventricular systolic function is normal. Left Atria Left atrial chamber dimension is normal. Right Atria Right atrial chamber dimension is normal. Aortic Valve The aortic valve is trileaflet. There is no aortic valve sclerosis. There is no aortic valve stenosis. There is no aortic valve regurgitation. There is mild aortic valve calcification. Pulmonic Valve The pulmonic valve is normal. There is no pulmonic valve stenosis. There is mild pulmonic regurgitation. Mitral Valve The mitral valve has normal leaflets. There is no mitral valve stenosis. There is mild mitral valve regurgitation. Tricuspid Valve The tricuspid valve leaflets are normal. There is no significant tricuspid valve stenosis. There is mild tricuspid valve regurgitation. No pulmonary hypertension, estimated pulmonary arterial systolic pressure is 32 mmHg. Pericardium/Pleural The pericardium appears normal. There is no pericardial effusion. Inferior Vena Cava Normal inferior vena cava with <50% collapse upon inspiration consistent with elevated right atrial pressure, 10 mmHg. Aorta The aortic root size at the sinus of Valsalva is normal. The prox ascending aorta size is normal. Left Ventricular Outflow Tract Name Value Normal LVOT 2D LVOT Diameter 2.0 cm LVOT Doppler LVOT Peak Velocity 93 cm/s LVOT Peak Gradient 3 mmHg LVOT Mean Gradient 2 mmHg LVOT VTI 17 cm LVOT VTI/AV VTI Ratio 0.7 LVOT Stroke Volume 55 ml LVOT CO 3.7 l/min LVOT CI 1.7 l/min/m2 Pulmonic Valve Name Value Normal RVOT Doppler RVOT Peak Velocity 84 cm/s RVOT Peak Gradient 3 mmHg PV Doppler PV Peak Velocity 106 cm/s PV Peak Gradient 5 mmHg Mitral Valve Name Value Normal MV Diastolic Function MV E Peak Velocity 76 cm/s MV A Peak Velocity 98 cm/s MV E/A 0.8 MV Decel Time (PW) 281 ms MV Annular TDI MV E/e' (Septal) 8.7 MV E/e' (Lateral) 7.5 MV E/e' (Average) 8.1 Tricuspid Valve Name Value Normal TV Regurgitation Doppler TR Peak Velocity 232 cm/s TR Peak Gradient 22 mmHg Estimated PAP/RSVP RA Pressure 10 mmHg <=5 PA Systolic Pressure 32 mmHg <36 RV Systolic Pressure 32 mmHg <36 TV Annular TDI TV Lateral Kristin s' Velocity 7.4 cm/s >=9.5 Aorta Name Value Normal Ascending Aorta Ao Root Diameter (MM) 3.5 cm Ao Root Diam Index (MM) 1.6 cm/m2 Aortic Valve Name Value Normal AV Doppler AV Peak Velocity 139 cm/s AV Peak Gradient 8 mmHg AV Mean Gradient 3 mmHg AV VTI 23 cm AV Area (Cont Eq VTI) 2.4 cm2 >=3.0 AV Area (Cont Eq [place]) 2.2 cm2 AV DI ([place]) 0.67 AV Regurgitation 2D LVOT Area 3.2 cm2 Ventricles Name Value Normal LV Dimensions 2D/MM IVS Diastolic Thickness (2D) 0.9 cm 0.6-1.0 LVID Diastole (2D) 4.4 cm 4.2-5.8 LVIW Diastolic Thickness (2D) 0.8 cm 0.6-1.0 LVID Systole (2D) 3.5 cm 2.5-4.0 LVOT Diameter 2.0 cm LV Mass (2D Cubed) 123.68 g 88.00-224.00 LV Mass Index (2D Cubed) 58 g/m2 49-115 Relative Wall Thickness (2D) 0.37 <=0.42 LV Fractional Shortening/Ejection Fraction 2D/MM LV Fractional Shortening (2D) 21 % 25-43 LV EF (2D Teichholz) 44 % LV Diastolic Volume (4C MOD) 67 ml LV EF (4C MOD) 47 % LV Diastolic Volume (2C MOD) 61 ml LV EF (2C MOD) 43 % LV Diastolic Volume (BP MOD) 64 ml 62-150 LV Diastolic Volume Index (BP MOD) 30 ml/m2 34-74 LV Systolic Volume (BP MOD) 36 ml 21-61 LV Systolic Volume Index (BP MOD) 17 ml/m2 11-31 LV EF (BP MOD) 44 % 52-72 LV Diastolic Length (4C) 8.1 cm LV Systolic Length (4C) 6.8 cm LV Stroke Volume (4C MOD) 32 ml Atria Name Value Normal LA Dimensions LA Dimension (MM) 5.7 cm 3.0-4.0 LA Volume (4C A-L) 88 ml LA Volume (BP A-L) 84 ml RA Dimensions RA Area (4C) 12.2 cm2 <=18.0 Report Signatures
[2025-08-02] MEDS: SODIUM CHLORIDE 0.9% IV 1,000 ML 100 ML IV CONT (02:55)
[2025-08-02] MEDS: IPRATROPIUM 0.5 MG/ALBUTEROL SULFATE 2.5 MG AMPUL.NEB 3 ML INHALATION ×3 (03:01→20:11)
[2025-08-02 05:49] LABS: Potassium 3.9 mmol/L (3.4-5.0)
[2025-08-02 06:00] LABS: NT Pro B Type Natriuretic Pept 6470 pg/mL (19.9-100)
[2025-08-02] MEDS: APIXABAN 5 MG TABLET PO ×2 (08:17→20:14)
[2025-08-02] MEDS: METOPROLOL TARTRATE 50 MG TAB PO ×2 (08:17→20:16)
[2025-08-02] MEDS: SACUBITRIL/VALSARTAN 49-51 MG TABLET 1 TABLET PO ×2 (08:17→20:15)
[2025-08-02] MEDS: FUROSEMIDE 20 MG TABLET PO (08:17)
[2025-08-02] MEDS: TAMSULOSIN HCL 0.4 MG CAPSULE PO (08:17)
[2025-08-02] MEDS: PANTOPRAZOLE 40 MG TABLET PO (08:17)
[2025-08-02] MEDS: ROSUVASTATIN 20 MG TABLET PO (08:17)
[2025-08-02] MEDS: POTASSIUM CHLORIDE 10 MEQ ER TABLET PO ×2 (08:18→17:16)
[2025-08-02] MEDS: LORATADINE 10 MG TABLET PO (08:18)
[2025-08-02] MEDS: ASPIRIN 81 MG ENTERIC TABLET PO (08:18)
[2025-08-02] MEDS: guaiFENesin 12 HR 600 MG TABCR 1200 MG PO ×2 (08:18→20:14)
--- NOTE | 2025-08-02 12:39 | P.CDI_ITS ---
<Statement entered by Jennie Banerjee MD - 08/02/25 17:33> This documentation has been reviewed and approved. No COPD exacerbation CDI Query Clarification Request 1)Please specify status of COPD, if known. * Exacerbation of COPD * No exacerbation/stable COPD * Other * Unable to determine 2)Hypoxia has been documented Please review the clinical information below and clarify the respiratory diagnosis the patient is being treated for: * Hypoxia or hypoxemia without respiratory failure * Respiratory distress without respiratory failure * Acute respiratory failure with hypoxia * Acute respiratory failure with hypercapnia * Acute respiratory failure with hypoxia and hypercapnia * Acute on chronic respiratory failure with hypoxia * Acute on chronic respiratory failure with hypercapnia * Acute on chronic respiratory failure with hypoxia and hypercapnia * Acute respiratory distress syndrome (ARDS) * Chronic respiratory failure with hypoxia * Chronic respiratory failure with hypercapnia * Chronic respiratory failure with hypoxia and hypercapnia * Other explanation clinical findings, please specify * Unable to determine (2) Sepsis: Code(s): A41.9 - Sepsis, unspecified organism Status: Acute Assessment and Plan: Met criteria for sepsis with tachycardia, elevated white count and UTI Blood cultures positive--follow results (3) Bacteremia: Code(s): R78.81 - Bacteremia Status: Acute Assessment and Plan: 07/30 Blood cultures + 1/2 GNB, 2 strains --Follow final cultures --Follow final blood cultures (4) Pneumonia: Code(s): J18.9 - Pneumonia, unspecified organism Status: Acute Assessment and Plan: --Continue Rocephin and azithromycin DuoNeb Guaifenesin On RA (5) Hypoxia: Code(s): R09.02 - Hypoxemia Status: Acute Assessment and Plan: --Likely related to COPD and pneumonia Wean oxygen as able Continue home Lasix (6) Lactic acid acidosis: Code(s): E87.20 - Acidosis, unspecified Status: Acute Assessment and Plan: 2 L a and IVF given emergency room Repeat lactic now 1.5 (7) COPD (chronic obstructive pulmonary disease): Code(s): J44.9 - Chronic obstructive pulmonary disease, unspecified Status: Acute Assessment and Plan: Continue home Trelegy, albuterol prn (8) HTN (hypertension): Code(s): I10 - Essential (primary) hypertension Status: Acute Assessment and Plan: Holding hypertensive medications due to soft blood pressure (9) Prostate CA: Code(s): C61 - Malignant neoplasm of prostate Status: Acute Assessment and Plan: --Continue Flomax --urology follow up (10) Gout: Code(s): M10.9 - Gout, unspecified Status: Acute Assessment and Plan: --Continue allopurinol (11) CAD (coronary artery disease): Code(s): I25.10 - Atherosclerotic heart disease of [place] coronary artery without angina pectoris Status: Acute Assessment and Plan: --Continue ASA and statin (12) Afib: Code(s): I48.91 - Unspecified atrial fibrillation Status: Acute Assessment and Plan: --Continue metoprolol --Start eliquis --TTE Overnight events UA + 100WBC, 4+ bacteria, Culture is growing GNB's Blood cultures 1/2 GNB. Afib new per discussion with patient and family and chart review. TSH normal PT/OT recs for possible SNF NSR on tele Reason for hospitalization 89 y/o man hx dementia, CAD s/p CABG, COPD, Prostate and Lung cancer, who presented to the hospital for shortness of breath, but also reports this is chronic for him. Has generalized weakness. Admitted for UTI and pneumonia, bacteremic. Also has new afib so started eliquis. Reports shortness of breath at baseline but has a new productive cough in the last week. Had a fall 2 weeks ago. Considering SNF CXR: Impression: Early bilateral pneumonia 07/30 documented 3L NC
[2025-08-02] MEDS: PERFLUTREN LIPID MICROSPHERES 1.5 ML VIAL DILUTED TO 10 ML TOTAL VOLUME IV PUSH (14:14)
--- NOTE | 2025-08-02 14:22 | PM.IMPN ---
Progress Note: A&P Assessment and Plan (1) Acute UTI: Code(s): N39.0 - Urinary tract infection, site not specified Status: Acute (2) Sepsis: Code(s): A41.9 - Sepsis, unspecified organism Status: Acute (3) Bacteremia: Code(s): R78.81 - Bacteremia Status: Acute (4) Pneumonia: Code(s): J18.9 - Pneumonia, unspecified organism Status: Acute (5) Hypoxia: Code(s): R09.02 - Hypoxemia Status: Acute (6) Lactic acid acidosis: Code(s): E87.20 - Acidosis, unspecified Status: Acute (7) COPD (chronic obstructive pulmonary disease): Code(s): J44.9 - Chronic obstructive pulmonary disease, unspecified Status: Acute (8) HTN (hypertension): Code(s): I10 - Essential (primary) hypertension Status: Acute (9) Prostate CA: Code(s): C61 - Malignant neoplasm of prostate Status: Acute (10) Gout: Code(s): M10.9 - Gout, unspecified Status: Acute (11) CAD (coronary artery disease): Code(s): I25.10 - Atherosclerotic heart disease of [place] coronary artery without angina pectoris Status: Acute (12) Afib: Code(s): I48.91 - Unspecified atrial fibrillation Status: Acute Plan 1. Sepsis likely secondary to UTI Bacteremia likely urinary tract source Blood culture grows ESBL Will escalate to meropenem Midline ordered Will discharge patient with ertapenem to complete 7-10 days followed by cephalexin prophylaxis PT OT evaluation is pending were to discharge patient Most likely he will benefit from acute rehab and for IV antibiotics managed 2. Acute hypoxic respiratory failure Back to baseline, on room air Etiology could be multifactorial; pneumonia/CHF Complete azithromycin for 3 days Continue meropenem follow up with TTE for CHF work up 3. Complicated Urinary tract infection History of prostate cancer Patient dependent for self catheterization 5 times a day at home Used to take cephalexin daily for prophylaxis but urology discontinued it the prophylaxis recently Will resume after patient completed ertapenem 4. Atrial fibrillation Continue metoprolol 5.COPD Continue home trelegy with p.r.n. albuterol Subjective Date/time seen: 08/02/25 14:22 Interval history: Patient is doing well. Sign and are at bedside. No acute event overnight. Patient is doing much better but he had been doing. Discussed with the nurse to contact the physical therapy. Review of Systems Review of Systems: 12 systems were reviewed and are negative except for as per HPI. Exam Narrative: APPEARANCE: No acute distress, obese EYES: EOMI HEENT: Normocephalic, atraumatic, OMM RESPIRATORY: No respiratory distress Clear to auscultation bilaterally with no rhonchi wheezing or rales. CARDIOVASCULAR: RRR, S1 and S2 without murmurs rubs or gallops. ABDOMINAL: Soft, nontender, nondistended, no rebound or guarding MSK: Spontaneously moves his extremities NEURO: Awake and alert. Following commands, speech normal, no focal deficits SKIN:: Warm, dry. No rashes lesions or abrasions PSYCHIATRIC: Bright Objective Data Vital Signs Vital Signs: Vital Signs - 24 hr 08/01/25 14:59 08/01/25 15:07 08/01/25 16:00 Temperature Pulse Rate 69 70 76 Respiratory Rate 18 18 Blood Pressure Pulse Oximetry Oxygen Delivery 08/01/25 20:00 08/01/25 20:03 08/01/25 20:14 Temperature Pulse Rate 86 86 Respiratory Rate Blood Pressure Pulse Oximetry Oxygen Delivery Room Air 08/01/25 20:24 08/02/25 00:00 08/02/25 03:02 Temperature 36.8 C Pulse Rate 84 83 70 Respiratory Rate 20 18 Blood Pressure 135/62 Pulse Oximetry 95 Oxygen Delivery 08/02/25 03:11 08/02/25 04:00 08/02/25 04:53 Temperature 36.5 C Pulse Rate 70 83 83 Respiratory Rate 18 18 Blood Pressure 118/56 L Pulse Oximetry 93 Oxygen Delivery 08/02/25 08:00 08/02/25 08:15 08/02/25 08:15 Temperature Pulse Rate 79 72 Respiratory Rate Blood Pressure 133/62 Pulse Oximetry 95 Oxygen Delivery Room Air 08/02/25 08:17 08/02/25 12:00 08/02/25 13:33 Temperature 37.1 C Pulse Rate 71 67 70 Respiratory Rate 20 Blood Pressure 137/60 Pulse Oximetry 95 Oxygen Delivery Intake/Output Intake/Output: Intake & Output 07/30/25 07/31/25 08/01/25 08/02/25 23:59 23:59 23:59 23:59 Intake Total 300 5826 5343.3 1630 Output Total 750 1300 1400 725 Balance -450 4540 3943.3 905 Meds/Results Medications: Active Medications Generic Name Dose Route Start Last Admin Trade Name Freq PRN Reason Stop Dose Admin Acetaminophen 650 mg 07/30/25 16:18 Acetaminophen 325 Mg Tablet PO Q4H PRN Mild Pain (1-3) or Fever Albuterol/Ipratropium 3 ml 07/30/25 20:00 08/02/25 08:45 Ipratropium 0.5 Mg/Albuterol Sulfate 2.5 Mg Ampul.Neb 3 Ml INHALATION Not Given Q6HRT NIGEL Allopurinol 100 mg 07/31/25 09:00 08/02/25 08:18 Allopurinol 100 Mg Tablet PO 100 mg DAILY NIGEL Administration Apixaban 5 mg 08/02/25 09:00 08/02/25 08:17 Apixaban 5 Mg Tablet PO 5 mg Q12HR NIGEL Administration Aspirin 81 mg 07/31/25 09:00 08/02/25 08:18 Aspirin 81 Mg Enteric Tablet PO 81 mg DAILY NIGEL Administration Docusate Sodium 100 mg 07/30/25 16:18 Docusate Sodium 100 Mg Capsule PO BID PRN Constipation Fluticasone/Umeclidinium/Vilanterol 1 puff 07/31/25 09:00 08/02/25 09:53 Fluticasone/Umeclidin/Vilanter 200-62.5-25 Mcg Ellipta INHALATION Not Given DAILY NIGEL Furosemide 20 mg 07/31/25 09:00 08/02/25 08:17 Furosemide 20 Mg Tablet PO 20 mg QAM NIGEL Administration Guaifenesin 1,200 mg 07/30/25 21:00 08/02/25 08:18 Guaifenesin 12 Hr 600 Mg Tabcr PO 1,200 mg Q12HR NIGEL Administration Ceftriaxone Sodium 1 gm/ 50 mls @ 100 mls/hr 07/31/25 16:00 08/01/25 17:20 Sodium Chloride IVPB Infused Q24H NIGEL Infusion Azithromycin 500 mg/ Sodium 250 mls @ 250 mls/hr 07/31/25 17:00 08/01/25 18:42 Chloride IVPB 08/03/25 17:59 250 mls/hr Q24H NIGEL Administration Loratadine 10 mg 07/31/25 09:00 08/02/25 08:18 Loratadine 10 Mg Tablet PO 10 mg DAILY NIGEL Administration Metoprolol Tartrate 50 mg 07/30/25 21:00 08/02/25 08:17 Metoprolol Tartrate 50 Mg Tab PO 50 mg Q12HR NIGEL Administration Pantoprazole Sodium 40 mg 07/31/25 09:00 08/02/25 08:17 Pantoprazole 40 Mg Tablet PO 40 mg QAM NIGEL Administration Perflutren Lipid Microsphere 0 ml 08/01/25 12:42 Perflutren Lipid Microspheres 1.5 Ml Vial Diluted To 10 Ml Total Volume IV PUSH 08/04/25 12:43 ONCE PRN adequate visualization Protocol Potassium Chloride 10 meq 07/31/25 09:00 08/02/25 08:18 Potassium Chloride 10 Meq Er Tablet PO 10 meq BID NIGEL Administration Prochlorperazine Maleate 10 mg 07/30/25 19:53 07/30/25 20:17 Prochlorperazine Maleate 5 Mg Tablet PO 10 mg Q6H PRN Administration Nausea And Vomiting Rosuvastatin Calcium 20 mg 07/31/25 09:00 08/02/25 08:17 Rosuvastatin 20 Mg Tablet PO 20 mg DAILY NIGEL Administration Sacubitril/Valsartan 1 tablet 08/01/25 12:20 08/02/25 08:17 Sacubitril/Valsartan 49-51 Mg Tablet PO 1 tablet Q12HR NIGEL Administration Tamsulosin HCl 0.4 mg 07/31/25 09:00 08/02/25 08:17 Tamsulosin Hcl 0.4 Mg Capsule PO 0.4 mg DAILY NIGEL Administration Trimethobenzamide HCl 200 mg 07/30/25 18:04 Trimethobenzamide Hcl 200 Mg/2 Ml Vial IM Q6H PRN Nausea And Vomiting Radiology Results: ITS Impressions Chest X-Ray 07/30/25 14:35 Impression: Early bilateral pneumonia Labs Labs: Laboratory Results - last 24 hr 08/02/25 05:08 Potassium 3.9 NT-Pro-B Natriuret Pep 6470 H Quality VTE Prophylaxis VTE prophylaxis: mechanical ordered and pharmacologic ordered
--- NOTE | 2025-08-02 14:30 | IVDEFINITY ---
Prior to administration of IV Definity the patient was educated on the risks and benefits of the imaging enhancing agent including potential adverse side effects. The patient verbalized understanding. Allergies were verified. No exclusion criteria were identified and at least one of the following inclusion criteria were met: 1) physician request, 2) patient technically difficult to image (per the [place] [employer] guidelines of two or more segments not discernable within the apical view), or 3) questionable left ventricular function. ?
[2025-08-02] MEDS: MEROPENEM 1 GM in SODIUM CHLORIDE 0.9% IV 100 ML 200 ML IVPB (16:04)
[2025-08-02] MEDS: AZITHROMYCIN 500 MG TABLET PO (17:16)
[2025-08-03] VITALS (19 sets, daily range): BP systolic 132–146; BP diastolic 58–71; PULSE 64–88; RESP 17–20; TEMP 36.4–36.7; O2SAT 90–95
[2025-08-03] MEDS: MEROPENEM 1 GM in SODIUM CHLORIDE 0.9% IV 100 ML 200 ML IVPB ×3 (00:41→21:47)
[2025-08-03] MEDS: IPRATROPIUM 0.5 MG/ALBUTEROL SULFATE 2.5 MG AMPUL.NEB 3 ML INHALATION ×4 (02:24→20:39)
[2025-08-03] MEDS: FLUTICASONE/UMECLIDIN/VILANTER 200-62.5-25 MCG ELLIPTA 1 PUFF INHALATION (07:18)
[2025-08-03] MEDS: POTASSIUM CHLORIDE 10 MEQ ER TABLET PO ×2 (09:17→17:43)
[2025-08-03] MEDS: guaiFENesin 12 HR 600 MG TABCR 1200 MG PO ×2 (09:17→21:44)
[2025-08-03] MEDS: ASPIRIN 81 MG ENTERIC TABLET PO (09:18)
[2025-08-03] MEDS: APIXABAN 5 MG TABLET PO ×2 (09:18→21:44)
[2025-08-03] MEDS: ROSUVASTATIN 20 MG TABLET PO (09:18)
[2025-08-03] MEDS: FUROSEMIDE 20 MG TABLET PO (09:18)
[2025-08-03] MEDS: METOPROLOL TARTRATE 50 MG TAB PO ×2 (09:18→21:44)
[2025-08-03] MEDS: LORATADINE 10 MG TABLET PO (09:18)
[2025-08-03] MEDS: PANTOPRAZOLE 40 MG TABLET PO (09:18)
[2025-08-03] MEDS: TAMSULOSIN HCL 0.4 MG CAPSULE PO (09:18)
[2025-08-03] MEDS: SACUBITRIL/VALSARTAN 49-51 MG TABLET 1 TABLET PO ×2 (09:19→21:44)
--- NOTE | 2025-08-03 13:20 | PCOTNOTE ---
Attempted to see Patient at this time. Patient unable to be seen at this time. Patient is getting ready to have a midline placed and Patient then states he should be getting discharged.
--- NOTE | 2025-08-03 13:57 | PC.NURSE ---
On 08/03/25, the student, [Marbella Rodriguez], provided care and completed [facility] documentation on this patient. I have reviewed the student's documentation and agree with the findings.
[2025-08-03] MEDS: LIDOCAINE 1% LOCAL INJ 2 ML AMPUL 5 ML INFILTRATE (14:00)
--- NOTE | 2025-08-03 15:22 | P.DS_ITS ---
DS: Admitting Diagnosis Discharge Date 08/03/25 Admitting Diagnosis Chills and shortness of breath DS: Discharge Diagnosis Discharge Diagnosis (1) Pneumonia: Code(s): J18.9 - Pneumonia, unspecified organism Status: Acute (2) Bacteremia: Code(s): R78.81 - Bacteremia Status: Acute DS: Summary Hospital Course Hospital Course: Reason for Admission Acute hypoxic respiratory failure due to pneumonia and urinary tract infection (UTI) with sepsis and bacteremia in the setting of multiple comorbidities. Hospital Course History & Presentation: 89-year-old male with a history of dementia, CAD s/p CABG, COPD, hypertension, prostate cancer, lung cancer, gout, and atrial fibrillation presented with chills, shortness of breath, and generalized weakness. The patient had a recent fall two weeks prior to admission. His reported increased weakness and shortness of breath the morning of admission. Initial Evaluation: * Vitals:?Hypoxic (SpO? <88%), tachypneic, placed on 3L NC. * Labs: * WBC 11.8 ? 11.9 (downtrending), Hgb 14.7 ? 11.9, Hct 45.1 ? 37.7 * BUN 30, glucose 137, lactic acid 3.3 (improved to 1.5 after fluids), CRP 3.7 * UA: 3+ leukocyte esterase, >100 WBCs, 4+ bacteria, negative nitrites * Blood cultures: Grew ESBL organism * Imaging: * CXR: Bilateral pneumonia * EKG: Atrial fibrillation with RVR (rate 109) * Echo: Normal LV systolic function (EF 55?60%), grade I diastolic dysfunction, mild valvular regurgitation, no pulmonary hypertension Hospital Course: * Sepsis/Bacteremia: * Initial empiric antibiotics: Rocephin and azithromycin * Escalated to meropenem after blood cultures grew ESBL organism * Plan for discharge with ertapenem to complete 7 days, then resume cephalexin prophylaxis for self-catheterization * IV fluids administered for lactic acidosis, which resolved * Pneumonia: * Treated with azithromycin (3 days) and continued meropenem * DuoNeb and guaifenesin for airway clearance * Weaned to room air, back to baseline respiratory status * UTI: * Complicated by self-catheterization and history of prostate cancer * Will resume cephalexin prophylaxis after ertapenem course * Atrial Fibrillation: * Rate controlled with metoprolol * COPD: * Continued home inhalers (Trelegy, PRN albuterol) * Hypertension: * Antihypertensives held during hypotensive episodes; to resume as tolerated * Other Comorbidities: * Prostate cancer: Continue tamsulosin * Gout: Continue allopurinol * CAD: Continue metoprolol and statin * Functional Status: * Generalized weakness and deconditioning, PT/OT evaluation completed * Discharge planning for acute rehab/SNF for IV antibiotics and rehabilitation Discharge Diagnoses Principal: * Sepsis secondary to ESBL bacteremia from complicated UTI (A41.9, N39.0, R78.81) * Pneumonia, unspecified organism (J18.9) * Acute hypoxic respiratory failure (R09.02) Secondary: * COPD (J44.9) * Atrial fibrillation (I48.91) * Hypertension (I10) * Coronary artery disease s/p CABG (I25.10) * Prostate cancer (C61) * Gout (M10.9) * Dementia (F03.90) * History of lung cancer (Z85.118) * History of falls (Z91.81) Discharge Medications * Ertapenem?IV to complete 7 days (5 days more per ID recommendations) * Cephalexin?for UTI prophylaxis (to resume after ertapenem) * Metoprolol?for rate control and CAD * Statin?(as previously prescribed) * Tamsulosin?0.4 mg PO daily * Allopurinol?for gout * Trelegy?inhaler daily,?albuterol?inhaler PRN * Other home medications?as reconciled Discharge Condition * Afebrile, hemodynamically stable, at baseline respiratory status on room air, voiding via self-catheterization, no acute distress, improved functional status but requires continued rehabilitation. Discharge Instructions * Diet:?Regular, as tolerated * Activity:?As tolerated, fall precautions, continue PT/OT * Wound/Device Care:?Maintain catheter hygiene, monitor for signs of infection * Follow-up: * Primary Care:?Within 1 week * Urology:?For ongoing management of prostate cancer and self-catheterization * Infectious Disease:?For antibiotic management * Cardiology:?For atrial fibrillation and CAD * Pulmonology:?For COPD as needed * Monitor:?Temperature, respiratory status, urine output, signs of infection, and mental status * When to Seek Care:?Worsening shortness of breath, chest pain, palpitations, fever, rigors, confusion, decreased urine output, or any new concerning symptoms Summary Mr. Mckinney was admitted with sepsis secondary to ESBL bacteremia from a c omplicated UTI, and pneumonia with acute hypoxic respiratory failure. He responded well to IV antibiotics and supportive care, with resolution of lactic acidosis and hypoxia. He is stable for discharge to acute rehab/SNF for completion of IV antibiotics and further rehabilitation. Time Spent with Patient Time attestation: Total time spent providing and/or coordinating discharge services: Discharge Plan Discharge Attending physician on discharge: Jp Baca Consulting providers: Beata Melo; Jp Baca Discharging Clinician: Jp Baca Anticipated Discharge Date/Time: 08/03/25 14:45 Patient Disposition: Home Activity: as tolerated Diet: as tolerated and heart healthy Patient Instructions: Antibiotic Form, Aspirin (By mouth), Apixaban (By mouth), Blood Thinners (GEN) Patient Language: Yi Stand Alone Forms: General Discharge Information Follow-up/Referrals: Mahendra,Reji [Other] Referral Note: F/u with PCP in 3-5 days Discharge Medications: New Eliquis 5 mg Tablet 5 mg PO Q12HR Qty: 60 2RF ertapenem 1 gram recon soln 1 g IV DAILY 5 Days Continued allopurinol 100 mg tablet 100 mg PO DAILY fexofenadine 180 mg tablet 180 mg PO DAILY tamsulosin 0.4 mg capsule 0.4 mg PO DAILY prochlorperazine maleate [Compazine] 10 mg tablet 10 mg PO Q8H PRN (Reason: Nausea) albuterol sulfate 90 mcg/actuation HFA aerosol inhaler 2 inh inhalation Q4H PRN (Reason: shortness of breath or wheezing) fluticasone propion-salmeterol 250-50 mcg/dose blister with device 1 inh inhalation BID furosemide 40 mg tablet 20 mg PO QAM metoprolol tartrate 50 mg tablet 50 mg PO BID potassium chloride 10 mEq capsule, extended release 10 meq PO BID rosuvastatin 20 mg tablet 20 mg PO DAILY sacubitril-valsartan 49-51 mg tablet 1 tablet PO BID omeprazole 20 mg capsule,delayed release(DR/EC) 20 mg PO QAM aspirin 81 mg Tablet,Delayed Release (Dr/Ec) 81 mg PO DAILY [id number] Tablet 1 tablet PO DAILY Trelegy Ellipta 200-62.5-25 mcg blister with device 1 inh INHALATION DAILY cephalexin 250 mg capsule 250 mg PO HS Qty: 30 3RF Date of admission: 07/30/25 16:30 Primary Care Provider: MahendraReji Admitting Provider: Brian Chacko Attending physician on admission: Brian Chacko Condition: Serious
--- NOTE | 2025-08-03 15:22 | PM.DS ---
DS: Admitting Diagnosis Discharge Date 08/03/25 Admitting Diagnosis Chills and shortness of breath DS: Discharge Diagnosis Discharge Diagnosis (1) Pneumonia: Code(s): J18.9 - Pneumonia, unspecified organism Status: Acute (2) Bacteremia: Code(s): R78.81 - Bacteremia Status: Acute DS: Summary Hospital Course Hospital Course: Reason for Admission Acute hypoxic respiratory failure due to pneumonia and urinary tract infection (UTI) with sepsis and bacteremia in the setting of multiple comorbidities. Hospital Course History & Presentation: 89-year-old male with a history of dementia, CAD s/p CABG, COPD, hypertension, prostate cancer, lung cancer, gout, and atrial fibrillation presented with chills, shortness of breath, and generalized weakness. The patient had a recent fall two weeks prior to admission. His reported increased weakness and shortness of breath the morning of admission. Initial Evaluation: Vitals:?Hypoxic (SpO? <88%), tachypneic, placed on 3L NC. Labs: WBC 11.8 ? 11.9 (downtrending), Hgb 14.7 ? 11.9, Hct 45.1 ? 37.7 BUN 30, glucose 137, lactic acid 3.3 (improved to 1.5 after fluids), CRP 3.7 UA: 3+ leukocyte esterase, >100 WBCs, 4+ bacteria, negative nitrites Blood cultures: Grew ESBL organism Imaging: CXR: Bilateral pneumonia EKG: Atrial fibrillation with RVR (rate 109) Echo: Normal LV systolic function (EF 55?60%), grade I diastolic dysfunction, mild valvular regurgitation, no pulmonary hypertension Hospital Course: Sepsis/Bacteremia: Initial empiric antibiotics: Rocephin and azithromycin Escalated to meropenem after blood cultures grew ESBL organism Plan for discharge with ertapenem to complete 7 days, then resume cephalexin prophylaxis for self-catheterization IV fluids administered for lactic acidosis, which resolved Pneumonia: Treated with azithromycin (3 days) and continued meropenem DuoNeb and guaifenesin for airway clearance Weaned to room air, back to baseline respiratory status UTI: Complicated by self-catheterization and history of prostate cancer Will resume cephalexin prophylaxis after ertapenem course Atrial Fibrillation: Rate controlled with metoprolol COPD: Continued home inhalers (Trelegy, PRN albuterol) Hypertension: Antihypertensives held during hypotensive episodes; to resume as tolerated Other Comorbidities: Prostate cancer: Continue tamsulosin Gout: Continue allopurinol CAD: Continue metoprolol and statin Functional Status: Generalized weakness and deconditioning, PT/OT evaluation completed Discharge planning for acute rehab/SNF for IV antibiotics and rehabilitation Discharge Diagnoses Principal: Sepsis secondary to ESBL bacteremia from complicated UTI (A41.9, N39.0, R78.81) Pneumonia, unspecified organism (J18.9) Acute hypoxic respiratory failure (R09.02) Secondary: COPD (J44.9) Atrial fibrillation (I48.91) Hypertension (I10) Coronary artery disease s/p CABG (I25.10) Prostate cancer (C61) Gout (M10.9) Dementia (F03.90) History of lung cancer (Z85.118) History of falls (Z91.81) Discharge Medications Ertapenem?IV to complete 7 days (5 days more per ID recommendations) Cephalexin?for UTI prophylaxis (to resume after ertapenem) Metoprolol?for rate control and CAD Statin?(as previously prescribed) Tamsulosin?0.4 mg PO daily Allopurinol?for gout Trelegy?inhaler daily,?albuterol?inhaler PRN Other home medications?as reconciled Discharge Condition Afebrile, hemodynamically stable, at baseline respiratory status on room air, voiding via self-catheterization, no acute distress, improved functional status but requires continued rehabilitation. Discharge Instructions Diet:?Regular, as tolerated Activity:?As tolerated, fall precautions, continue PT/OT Wound/Device Care:?Maintain catheter hygiene, monitor for signs of infection Follow-up: Primary Care:?Within 1 week Urology:?For ongoing management of prostate cancer and self-catheterization Infectious Disease:?For antibiotic management Cardiology:?For atrial fibrillation and CAD Pulmonology:?For COPD as needed Monitor:?Temperature, respiratory status, urine output, signs of infection, and mental status When to Seek Care:?Worsening shortness of breath, chest pain, palpitations, fever, rigors, confusion, decreased urine output, or any new concerning symptoms Summary Mr. Mckinney was admitted with sepsis secondary to ESBL bacteremia from a complicated UTI, and pneumonia with acute hypoxic respiratory failure. He responded well to IV antibiotics and supportive care, with resolution of lactic acidosis and hypoxia. He is stable for discharge to acute rehab/SNF for completion of IV antibiotics and further rehabilitation. Time Spent with Patient Time attestation: Total time spent providing and/or coordinating discharge services: Discharge Plan Discharge Attending physician on discharge: Jp Baca Consulting providers: Beata Melo; Jp Baca Discharging Clinician: Jp Baca Anticipated Discharge Date/Time: 08/03/25 14:45 Patient Disposition: Home Activity: as tolerated Diet: as tolerated and heart healthy Patient Instructions: Antibiotic Form, Aspirin (By mouth), Apixaban (By mouth), Blood Thinners (GEN) Patient Language: Monegas[place] Stand Alone Forms: General Discharge Information Follow-up/Referrals: Mahendra,Reji [Other] Referral Note: F/u with PCP in 3-5 days Discharge Medications: New Eliquis 5 mg Tablet 5 mg PO Q12HR Qty: 60 2RF ertapenem 1 gram recon soln 1 g IV DAILY 5 Days Continued allopurinol 100 mg tablet 100 mg PO DAILY fexofenadine 180 mg tablet 180 mg PO DAILY tamsulosin 0.4 mg capsule 0.4 mg PO DAILY prochlorperazine maleate [Compazine] 10 mg tablet 10 mg PO Q8H PRN (Reason: Nausea) albuterol sulfate 90 mcg/actuation HFA aerosol inhaler 2 inh inhalation Q4H PRN (Reason: shortness of breath or wheezing) fluticasone propion-salmeterol 250-50 mcg/dose blister with device 1 inh inhalation BID furosemide 40 mg tablet 20 mg PO QAM metoprolol tartrate 50 mg tablet 50 mg PO BID potassium chloride 10 mEq capsule, extended release 10 meq PO BID rosuvastatin 20 mg tablet 20 mg PO DAILY sacubitril-valsartan 49-51 mg tablet 1 tablet PO BID omeprazole 20 mg capsule,delayed release(DR/EC) 20 mg PO QAM aspirin 81 mg Tablet,Delayed Release (Dr/Ec) 81 mg PO DAILY [id number] Tablet 1 tablet PO DAILY Trelegy Ellipta 200-62.5-25 mcg blister with device 1 inh INHALATION DAILY cephalexin 250 mg capsule 250 mg PO HS Qty: 30 3RF Date of admission: 07/30/25 16:30 Primary Care Provider: Mahendra,Reji Admitting Provider: Brian Chacko Attending physician on admission: Brian Chacko Condition: Serious
[2025-08-03] MEDS: AZITHROMYCIN 500 MG TABLET PO (17:43)
[2025-08-03] MEDS: SALINE LOCK FLUSH 10 ML IV PUSH ×2 (21:45)
[2025-08-04] VITALS (9 sets, daily range): BP systolic 127; BP diastolic 69; PULSE 71–83; RESP 18–20; TEMP 36.6; O2SAT 96
[2025-08-04] MEDS: IPRATROPIUM 0.5 MG/ALBUTEROL SULFATE 2.5 MG AMPUL.NEB 3 ML INHALATION ×2 (02:00→08:46)
[2025-08-04 05:14] LABS: Potassium 3.8 mmol/L (3.4-5.0)
[2025-08-04] MEDS: SALINE LOCK FLUSH 10 ML IV PUSH ×2 (06:51)
[2025-08-04] MEDS: SACUBITRIL/VALSARTAN 49-51 MG TABLET 1 TABLET PO (08:33)
[2025-08-04] MEDS: APIXABAN 5 MG TABLET PO (08:33)
[2025-08-04] MEDS: ROSUVASTATIN 20 MG TABLET PO (08:33)
[2025-08-04] MEDS: LORATADINE 10 MG TABLET PO (08:34)
[2025-08-04] MEDS: METOPROLOL TARTRATE 50 MG TAB PO (08:34)
[2025-08-04] MEDS: FUROSEMIDE 20 MG TABLET PO (08:34)
[2025-08-04] MEDS: guaiFENesin 12 HR 600 MG TABCR 1200 MG PO (08:34)
[2025-08-04] MEDS: TAMSULOSIN HCL 0.4 MG CAPSULE PO (08:34)
[2025-08-04] MEDS: PANTOPRAZOLE 40 MG TABLET PO (08:34)
[2025-08-04] MEDS: ASPIRIN 81 MG ENTERIC TABLET PO (08:34)
[2025-08-04] MEDS: POTASSIUM CHLORIDE 10 MEQ ER TABLET PO (08:34)
[2025-08-04] MEDS: MEROPENEM 1 GM in SODIUM CHLORIDE 0.9% IV 100 ML 200 ML IVPB (08:35)
[2025-08-04] MEDS: FLUTICASONE/UMECLIDIN/VILANTER 200-62.5-25 MCG ELLIPTA 1 PUFF INHALATION (08:46)
--- NOTE | 2025-08-04 12:50 | P.CDI_ITS ---
CDI Query Clarification Request Hypoxia has been documented Please review the clinical information below and clarify the respiratory diagnosis the patient is being treated for: * Hypoxia or hypoxemia without respiratory failure * Respiratory distress without respiratory failure * Acute respiratory failure with hypoxia * Acute respiratory failure with hypercapnia * Acute respiratory failure with hypoxia and hypercapnia * Acute on chronic respiratory failure with hypoxia * Acute on chronic respiratory failure with hypercapnia * Acute on chronic respiratory failure with hypoxia and hypercapnia * Acute respiratory distress syndrome (ARDS) * Chronic respiratory failure with hypoxia * Chronic respiratory failure with hypercapnia * Chronic respiratory failure with hypoxia and hypercapnia * Other explanation clinical findings, please specify * Unable to determine (2) Sepsis: Code(s): A41.9 - Sepsis, unspecified organism Status: Acute Assessment and Plan: Met criteria for sepsis with tachycardia, elevated white count and UTI Blood cultures positive--follow results (3) Bacteremia: Code(s): R78.81 - Bacteremia Status: Acute Assessment and Plan: 07/30 Blood cultures + 1/2 GNB, 2 strains --Follow final cultures --Follow final blood cultures (4) Pneumonia: Code(s): J18.9 - Pneumonia, unspecified organism Status: Acute Assessment and Plan: --Continue Rocephin and azithromycin DuoNeb Guaifenesin On RA (5) Hypoxia: Code(s): R09.02 - Hypoxemia Status: Acute Assessment and Plan: --Likely related to COPD and pneumonia Wean oxygen as able Continue home Lasix (6) Lactic acid acidosis: Code(s): E87.20 - Acidosis, unspecified Status: Acute Assessment and Plan: 2 L a and IVF given emergency room Repeat lactic now 1.5 (7) COPD (chronic obstructive pulmonary disease): Code(s): J44.9 - Chronic obstructive pulmonary disease, unspecified Status: Acute Assessment and Plan: Continue home Trelegy, albuterol prn (8) HTN (hypertension): Code(s): I10 - Essential (primary) hypertension Status: Acute Assessment and Plan: Holding hypertensive medications due to soft blood pressure (9) Prostate CA: Code(s): C61 - Malignant neoplasm of prostate Status: Acute Assessment and Plan: --Continue Flomax --urology follow up (10) Gout: Code(s): M10.9 - Gout, unspecified Status: Acute Assessment and Plan: --Continue allopurinol (11) CAD (coronary artery disease): Code(s): I25.10 - Atherosclerotic heart disease of [place] coronary artery without angina pectoris Status: Acute Assessment and Plan: --Continue ASA and statin (12) Afib: Code(s): I48.91 - Unspecified atrial fibrillation Status: Acute Assessment and Plan: --Continue metoprolol --Start eliquis --TTE Overnight events UA + 100WBC, 4+ bacteria, Culture is growing GNB's Blood cultures 1/2 GNB. Afib new per discussion with patient and family and chart review. TSH normal PT/OT recs for possible SNF NSR on tele Reason for hospitalization 89 y/o man hx dementia, CAD s/p CABG, COPD, Prostate and Lung cancer, who presented to the hospital for shortness of breath, but also reports this is chronic for him. Has generalized weakness. Admitted for UTI and pneumonia, bacteremic. Also has new afib so started eliquis. Reports shortness of breath at baseline but has a new productive cough in the last week. Had a fall 2 weeks ago. Considering SNF CXR: Impression: Early bilateral pneumonia 07/30 documented 3L NC now on RA <Janette Rios RN - Last Filed: 08/04/25 12:53> Clarified Diagnosis Clarified Diagnosis: * Acute respiratory failure with hypoxia <Jp Baca MD - Last Filed: 08/04/25 13:03>
== END 2025-08-04 13:40 | DRG 698 ==
LOC: ANHED 15:28 → ANH2MED 16:03
PROVIDERS: Nurse Practitioner Acute Care; Nurse Practitioner Gerontology; Admitting Provider General Practice; Emergency Provider Emergency Medicine; Visit Provider Internal Medicine
DX: T83.518A Infection and inflammatory reaction due to other urinary catheter, initial encounter (principal); A41.9 Sepsis, unspecified organism; J18.9 Pneumonia, unspecified organism; J96.01 Acute respiratory failure with hypoxia; Z16.12 Extended spectrum beta lactamase (ESBL) resistance; J44.0 Chronic obstructive pulmonary disease with (acute) lower respiratory infection; E87.21 Acute metabolic acidosis; N39.0 Urinary tract infection, site not specified; Z20.822 Contact with and (suspected) exposure to COVID-19; F03.90 Unspecified dementia, unspecified severity, without behavioral disturbance, psychotic disturbance, mood disturbance, and anxiety; N40.0 Benign prostatic hyperplasia without lower urinary tract symptoms; C61 Malignant neoplasm of prostate; K21.9 Gastro-esophageal reflux disease without esophagitis; I10 Essential (primary) hypertension; E78.00 Pure hypercholesterolemia, unspecified; I25.10 Atherosclerotic heart disease of native coronary artery without angina pectoris; I48.91 Unspecified atrial fibrillation; M19.90 Unspecified osteoarthritis, unspecified site; M10.9 Gout, unspecified; R33.9 Retention of urine, unspecified; Z85.118 Personal history of other malignant neoplasm of bronchus and lung; Z95.1 Presence of aortocoronary bypass graft; Z87.891 Personal history of nicotine dependence; Z91.81 History of falling
CPT/HCPCS: 36415; 36569; 71045; 80048; 80053; 81001; 83605; 83880; 84132; 84443; 85025; 85055; 85610; 85730; 86140; 87040; 87086; 87186; 87637; 93005; 94640; 96365; 96368; 96375; 97110; 97116; 97162; 97165; 97530; 99285; A9270; C1751; C8929; G0378; J0456; J0696; J1650; J2003; J2185; J2405; J7030; J7050; J7120; Q9957

== ENCOUNTER 2025-08-10 14:14 | Inpatient (IN) | payer MEDICARE, SELFPAY ==
--- OUTSIDE RECORDS SUMMARY | 2010-06-27 10:45 | XMS_ITS | Continuity of Care Document ---
Author Organization [facility] Address [address] [place] [address] [place] [address] Phone Care Team Providers Care Photolith Operator Name Role Phone Anita Sotelo Unavailable Unavailable [...] Diagnoses Date Provider Providers Copied on Encounter [facility], [address] [place] [address] [address], [place], [place], [id number], tel:[phone] [facility] No Information 4-201 0 Ashleigh Hamilton [address] , [address], [place], [place], [facility], [place]. tel:[phone] Office/outpat ient Visit, Est [facility], [address] [place] [address] [address], [place], [place], [id number], tel:[phone] [facility] No Information 8-200 9 Ashleigh Hamilton [address] , [address], [place], [address], [place]. tel:[phone] [facility], [address] [place] [address] [address], [place], [place], [id number], tel:[phone] [facility] No Information Mar-0 7-200 8 Ashleigh Howard. [address] [facility] [place] , [address], [place], [facility], . tel:[phone] Office/outpat ient Visit, Est [facility], [address] [place] [address] [address], [place], [place], [id number], [place] tel:[phone] [facility] No Information Sep-0 4-200 7 Hare OD Bhanu. [address] [facility] , [address], [place], [facility], . tel:[phone] [facility], [address] [place] [address] [address], [place], [place], [id number], tel:[phone] [facility] No Information Feb-1 6-200 7 Ashleigh Howard. [address] [facility] , [address], [place], [facility], . tel:[phone] Referring Provider: Anita Mishra [address] [place], [place] [address]ate [place] [address], [place], [facility]. tel:[phone] Family History Family Member Type Diagnosis Age At Onset No Information Payers Payer name Insurance type Covered republican ID Authoriza tion(s) Medicare [facility] [id number] BCBS [place] Commercial [id number] Social History Type Description Quantity Date Captured [...]
[2025-08-10] VITALS (13 sets, daily range): BP systolic 110–144; BP diastolic 52–65; PULSE 65–91; RESP 13–22; TEMP 36.4–36.7; O2SAT 98–100; BMI 30.4
--- NOTE | ~2025-08-10 | CT_ITS ---
EXAMINATION: CT brain wo cristopher, 08/10/2025 15:30 CDT HISTORY: AMS COMPARISON: No comparisons available. Technique: Axial images obtained of the brain without contrast. One or more of the following dose reduction techniques were used: automated exposure control, adjustment of the mA and/or kV according to patient size, use of iterative reconstruction technique. Findings: Moderate chronic periventricular ischemic changes. Remote bilateral basal ganglion lacunar infarcts. No acute infarct or hemorrhage. No midline shift or mass effect. No extra-axial fluid collections. Mastoid air cells unremarkable. Sinuses and orbits unremarkable. No acute fracture. No significant facial or scalp soft tissue swelling evident. No radiopaque foreign body is seen. Impression: 1.No acute intracranial abnormality. Reviewed, dictated and finalized at location P. Impression: 1.No acute intracranial abnormality.
--- NOTE | ~2025-08-10 | XR_ITS ---
EXAMINATION: XR chest 2V DATE: 08/10/2025 14:47 INDICATION: Shortness of breath TECHNIQUE: frontal and lateral views of the chest were obtained. COMPARISON: Chest radiograph dated 07/30/2025 FINDINGS: Small lung volumes. Opacities at the lateral lung base with mild blunting the costophrenic angles and posterior sulci consistent with small bilateral pleural effusions with associated bibasilar atelectasis and/or pneumonia. No pneumothorax. Heart size is normal. Median sternotomy wires, ostial markers and mediastinal surgical clips consistent with prior coronary artery bypass grafting. Atherosclerotic aorta. Bilateral rotator cuff arthropathy with severe right-sided and moderate left-sided glenohumeral osteoarthritis. Severe spondylosis at the thoracolumbar junction.. IMPRESSION: 1. Small bilateral pleural effusions with associated bibasilar atelectasis and/or pneumonia. Reviewed, dictated and finalized at location A. IMPRESSION: 1. Small bilateral pleural effusions with associated bibasilar atelectasis and/ or pneumonia.
--- NOTE | ~2025-08-10 | CT_ITS ---
EXAMINATION: CT chest abdomen pelvis wo con, 08/10/2025 15:30 CDT HISTORY: pneumonia and hematuria COMPARISON: No comparisons available. TECHNIQUE: CT scan of the chest, abdomen and pelvis was performed without contrast One or more of the following dose reduction techniques were used: automated exposure control, adjustment of the mA and/or kV according to patient size, use of iterative reconstruction technique. Unless otherwise stated, incidental findings do not require dedicated follow up imaging FINDINGS: CT chest: No significant coronary calcification is present ([id number]) LUNGS: No tracheomalacia. No bronchiectasis. Mild emphysematous changes. Mild pulmonary fibrotic changes. Left basilar atelectasis. Small right basilar infiltrate with right basilar atelectasis. HEART AND PERICARDIUM: Mild cardiomegaly. AORTA: Normal caliber aorta. MEDIASTINUM: Unremarkable. THYROID: The thyroid is unremarkable. CT abdomen: LIVER: Unremarkable, liver contours intact, no lesions. SPLEEN: Unremarkable, no splenomegaly. KIDNEYS: Right Kidney: Right kidney there are multiple simple appearing renal cysts the largest mid pole 4 x 4 cm with a large partially calcified complex cyst anteriorly measuring 7 x 8 cm incompletely evaluated, outpatient ultrasound is recommended. Left Kidney: Left kidney multiple simple appearing renal cysts the largest superior pole 3 x 3 cm, arising from the midpole there is a complex focus with solid features measuring 2.5 x 2.5 cm, contrast-enhanced MRI or CT is recommended. ADRENAL GLANDS: Unremarkable. PANCREAS: GALLBLADDER/BILIARY: Unremarkable. No biliary dilatation. STOMACH AND ESOPHAGUS: Moderate hiatal hernia. BOWEL/MESENTERY: Moderate fecal content with moderate diverticulosis, no colitis or diverticulitis. The appendix is prominent although there is no periappendiceal inflammation, the appendix maximally measures 1 cm. Mesentery normal. There are no thickened or dilated loops of small bowel. RETROPERITONEUM: Unremarkable AORTA/VASCULATURE: Normal caliber aorta. FREE FLUID OR FREE AIR: No free fluid.. CT pelvis: SOLID ORGANS/REPRODUCTIVE: Prostate brachytherapy seeds noted. BLADDER: The bladder is decompressed, there is a Segundo catheter within the bladder. LYMPHADENOPATHY: No lymphadenopathy. OSSEOUS STRUCTURES: Fixation of the left femur with left hip arthroplasty. No sclerotic or lytic lesions. Moderate to severe degenerative changes in the visualized lumbar spine. Poststernotomy changes are evident. Severe degenerative changes of the glenohumeral joints bilaterally. There are remote left-sided nonunited lateral rib fractures. OVERLYING SOFT TISSUES: Small fat-containing left inguinal hernia. IMPRESSION: 1. Small focus of right lower lobe bronchopneumonia superimposed on chronic lung disease. 2. No acute intra-abdominal process. 3. Thickened appendix, correlate for symptoms of chronic appendicitis. The differential includes an appendiceal lesion, adnexal neoplasm is not excluded. Surgical consultation suggested. 4. Left renal lesion incompletely evaluated. Contrast-enhanced CT or MRI is recommended Reviewed, dictated and finalized at location P. IMPRESSION: 1. Small focus of right lower lobe bronchopneumonia superimposed on chronic elvi g disease. 2. No acute intra-abdominal process. 3. Thickened appendix, correlate for symptoms of chronic appendicitis. The diff erential includes an appendiceal lesion, adnexal neoplasm is not excluded. Surg ical consultation suggested. 4. Left renal lesion incompletely evaluated. Contrast-enhanced CT or MRI is rec ommended
--- NOTE | 2025-08-10 14:23 | ECG_ITS ---
Test Date: 2025-08-10 14:19:56 Measurements Intervals Otter Rate: 65 P: 48 MD: 211 QRS: -28 QRSD: 153 T: 19 QT: 423 QTc: 441 Interpretive Statements SINUS RHYTHM WITH FIRST DEGREE AV BLOCK RIGHT BUNDLE BRANCH BLOCK BASELINE ARTIFACT- I, II, AVR, AVF, V1, V3 ABNORMAL ECG Compared to ECG 07/30/2025 14:21:55 HEART RATE HAS DECREASED Electronically Signed On 08-10-2025 14:29:12 CDT by Jack Love D.O.
--- NOTE | 2025-08-10 15:02 | ED.GENADULT ---
HPI - General Adult General Chief complaint: Weakness Stated complaint: increased confusion History of Present Illness HPI narrative: 89-year-old male presents to the emergency department for evaluation for worsening altered mental status. Patient was recently discharged from [facility] where he had been treated for pneumonia and urinary tract infection. Patient did have a PICC line in his left arm that they were concerned had infiltrated and was switched to the right arm. Upon arrival to the emergency department patient is tired appearing but denies any complaints. Related Data Home Medications ?Medication ?Instructions ?Recorded ?Confirmed ?Last Taken ?Type allopurinol 100 mg tablet 100 mg PO DAILY 10/11/20 08/04/25 08/04/25 History fexofenadine 180 mg tablet 180 mg PO DAILY 10/11/20 08/04/25 08/04/25 History tamsulosin 0.4 mg capsule 0.4 mg PO DAILY 10/11/20 08/04/25 08/04/25 History aspirin 81 mg tablet,delayed 81 mg PO DAILY 11/28/20 08/04/25 08/04/25 History release ikheolwjkwfm-lgmcizlk-twdnau tablet 1 tablet PO DAILY 11/28/20 08/04/25 08/04/25 History omeprazole 20 mg capsule,delayed 20 mg PO QAM 11/28/20 08/04/25 08/04/25 History release prochlorperazine maleate 10 mg 10 mg PO Q8H PRN Nausea 07/26/21 08/04/25 08/29/21 History tablet (Compazine) albuterol sulfate 90 mcg/actuation 2 inh inhalation Q4H PRN shortness 03/17/24 08/04/25 Unknown History aerosol inhaler of breath or wheezing fluticasone 250 mcg-salmeterol 50 1 inh inhalation BID 03/17/24 08/04/25 Unknown History mcg/dose blistr powdr for inhalation furosemide 40 mg tablet 20 mg PO QAM 03/17/24 08/04/25 08/04/25 History metoprolol tartrate 50 mg tablet 50 mg PO BID 03/17/24 08/04/25 08/04/25 History potassium chloride 10 mEq 10 meq PO BID 03/17/24 08/04/25 08/04/25 History capsule,extended release rosuvastatin 20 mg tablet 20 mg PO DAILY 03/17/24 08/04/25 08/04/25 History sacubitril 49 mg-valsartan 51 mg 1 tablet PO BID 03/17/24 08/04/25 08/04/25 History tablet fluticasone fur. 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 BPH (benign prostatic hyperplasia) Overweight (BMI 25.0-29.9) Prostate CA Gout Arthritis Chronic GERD Lung cancer COPD (chronic obstructive pulmonary disease) HTN (hypertension) Hypercholesterolemia CAD (coronary artery disease) Surgical History Surgical History 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 Social History Social History Social History: Caffeine-coffe/tea/soda Smoking packs per day: 1 Smoking cigarettes per day: 20.0 Years smoked: 20 Smoking pack-years: 20.00 Smoking status: Former smoker Tobacco type: cigarettes Second hand tobacco smoke exposure: No Alcohol intake: current Drinks per week: 7 Alcohol use details: 1 GIN & TONIC/DAY Substance use: never Substance use type: does not use Lack of Transportation: No Lack of Food: Never True Current Housing: I Have Housing Concerned About Future Housing: No Difficulty Paying Gas/Electric Bills: No Difficulty Paying for Meds: No Currently Unemployed: No Education: Associate Degree Difficulty w/ Childcare or Family Care: YES Living arrangements: with family Additional living arrangements comments: Gender identity (if verbalized by the patient): Male Sexual Orientation (if Verbalized by the Patient): Straight or Heterosexual Spiritual care concerns: No Exam Narrative: APPEARANCE: Tired appearing HEAD: normocephalic, atraumatic. EYES: PERRLA/EOMI, conjunctivae clear. NOSE: Normal no drainage EARS:TMS clear with good light reflex. THROAT: Pharynx clear, no exudate. NECK: Supple. No adenopathy, no masses. RESPIRATORY: Airway patent, respirations nonlabored. Clear to auscultation bilaterally, no rales, rhonchi, wheezing. CARDIOVASCULAR: Regular rate and rhythm without murmurs rubs or gallops. ABDOMINAL: Soft, nontender, nondistended, normal bowel sounds MUSCULOSKELETAL: Moves all extremities. Strength/ROM intact, No edema, No calf tenderness. NEURO: Alert. Cranial nerves II through XII intact. Good gait. Good coordination SKIN: Warm, dry. Normal Color Course Vital Signs Vital signs: Vital Signs Temperature 97.6 F 08/10/25 14:13 Pulse Rate 65 08/10/25 14:13 Respiratory Rate 22 H 08/10/25 14:13 Blood Pressure 123/65 08/10/25 14:13 Pulse Oximetry 98 08/10/25 14:13 Oxygen Delivery Room Air 08/10/25 14:13 Temperature 97.6 F 08/10/25 14:13 Pulse Rate 77 08/10/25 16:45 Respiratory Rate 19 08/10/25 16:45 Blood Pressure 115/58 L 08/10/25 17:01 Pulse Oximetry 99 08/10/25 16:45 Oxygen Delivery Room Air 08/10/25 14:13 Medical Decision Making [facility] Narrative Medical decision making narrative: 89-year-old male presents emergency department for evaluation for worsening generalized weakness and some confusion. Patient did have a recent UTI and pneumonia. Patient's urine is concerning for urinary tract infection and patient's CT scan of the chest does show evidence of a bronchial pneumonia. Blood cultures ordered and patient was restarted on meropenem. Head CT was negative for any acute intracranial abnormality. Patient is afebrile but does have a leukocytosis of 10.5 and hemoglobin 11.3. Patient has a INR of 1.9. Patient has a creatinine of 1.5 days of the toes baseline. Patient's CRP is elevated at 16.1. Patient and family were updated on the results of the workup and plan for readmission. I did discuss the case with the hospitalist patient was accepted for admission. Differential Diagnosis Differential Diagnosis: Pneumonia, UTI, ureteral calculi, colitis, diverticulitis, subdural hematoma, subarachnoid hemorrhage Vital Signs Vital Signs: Vital Signs Temperature 97.6 F 08/10/25 14:13 Pulse Rate 65 08/10/25 14:13 Respiratory Rate 22 H 08/10/25 14:13 Blood Pressure 123/65 08/10/25 14:13 Pulse Oximetry 98 08/10/25 14:13 Oxygen Delivery Room Air 08/10/25 14:13 Temperature 97.6 F 08/10/25 14:13 Pulse Rate 77 08/10/25 16:45 Respiratory Rate 19 08/10/25 16:45 Blood Pressure 115/58 L 08/10/25 17:01 Pulse Oximetry 99 08/10/25 16:45 Oxygen Delivery Room Air 08/10/25 14:13 Lab Data Lab results reviewed: Yes I reviewed the patient's lab results. 08/10/25 16:24 08/10/25 16:24 Labs: Lab Results 08/10/25 08/10/25 Range/Units 15:00 16:24 WBC 10.5 H (4.5-10.0) K/mm3 RBC 3.84 L (4.6-6.20) M/mm3 Hgb 11.3 L (14.0-18.0) g/dL Hct 35.3 L (42.0-52.0) % MCV 91.9 (80-100) fl MCH 29.4 (26-34) pg MCHC 32.0 (32-36) g/dl RDW 13.0 (11.5-14.5) % Plt Count 281 (150-375) k/mm3 MPV 10.0 (7.4-10.4) fl Immature Gran % (Auto) 0.6 H (0-0.5) % Neut % (Auto) 73.3 H (45.5-73.1) % Lymph % (Auto) 14.8 L (18.3-44.2) % [place] % (Auto) 6.4 (2.6-8.5) % Eos % (Auto) 4.3 (0-4.4) % Baso % (Auto) 0.6 (0.2-1.2) % Lymph # (Auto) 1.56 (0.9-3.2) K/mm3 [place] # (Auto) 0.7 H (0.1-0.6) K/mm3 Eos # (Auto) 0.5 H (0-0.3) K/mm3 Baso # (Auto) 0.1 (0.0-0.1) K/mm3 Abs Immat Gran (auto) 0.06 H (0.00-0.031) K/mm3 Absolute Neuts (auto) 7.7 H (1.3-6.7) K/mm3 Absolute Nucleated RBC 0.000 (0.0-0.012) K/mm3 Nucleated RBC % 0.0 (0.0-0.2) % PT 21.6 H (11.1-14.7) Seconds INR 1.9 APTT 44.6 H (22.3-36.8) Seconds Sodium 134 L (137-145) mmol/L Potassium 4.3 (3.4-5.0) mmol/L Chloride 100 (98-107) mmol/L Carbon Dioxide 28 (22-30) mmol/L Anion Gap 6 (4-12) mmol/L BUN 63 H (9-20) mg/dL Creatinine 1.85 H (0.7-1.3) mg/dL Estim Creat Clear Calc 28 ml/min Estimated GFR 35 L (59 - ) Glucose 107 (65-110) mg/dL Lactic Acid < 0.5 L (0.7-2.0) mmol/L Calcium 9.7 (8.4-10.2) mg/dL Total Bilirubin 0.4 (0.2-1.3) mg/dL AST 88 H (17-59) U/L ALT 82 H (6-50) U/L Alkaline Phosphatase 115 (38-126) U/L C-Reactive Protein 16.1 H (<1.0) mg/dL Total Protein 6.7 (6.3-8.2) g/dL Albumin 3.1 L (3.5-5.1) g/dL Urine Color Yellow (Yellow) Urine Appearance Turbid H (Clear) Urine pH 5.0 (5.0-9.0) Ur Specific [place] 1.014 (1.001-1.035) Urine Protein Trace (Negative) mg/dL Urine Glucose (UA) Negative (Negative) mg/dL Urine Ketones Negative (Negative) mg/dL Ur Blood (Man) 3+ H (Negative) Urine Nitrate Negative (Negative) Urine Bilirubin Negative (Negative) Urine Urobilinogen 0.2 (<2.0) mg/dL Add Ur Microanalysis Reviewed Leukocyte Esterase Rfl 3+ H (Negative) STEFAN/UL Urine RBC >100 H (0-2) /hpf Urine WBC 21-50 H (0-3) /hpf Ur Squamous Epith Cells Moderate (Few) /hpf Amorphous Sediment Few H (None) Urine Bacteria None seen /hpf Urine Casts >20 Influenza A (RT-PCR) Negative (Negative) Influenza B (RT-PCR) Negative (Negative) RSV (RT-PCR) Negative (Negative) SARS-CoV-2 RNA (RT-PCR) Negative (Negative) Imaging Data Radiologist's impression: Impressions Chest X-Ray 08/10/25 15:12 IMPRESSION: 1. Small bilateral pleural effusions with associated bibasilar atelectasis and/or pneumonia. Head CT 08/10/25 16:05 Impression: 1.No acute intracranial abnormality. Chest/Abdomen/Pelvis CT 08/10/25 17:25 IMPRESSION: 1. Small focus of right lower lobe bronchopneumonia superimposed on chronic lung disease. 2. No acute intra-abdominal process. 3. Thickened appendix, correlate for symptoms of chronic appendicitis. The differential includes an appendiceal lesion, adnexal neoplasm is not excluded. Surgical consultation suggested. 4. Left renal lesion incompletely evaluated. Contrast-enhanced CT or MRI is recommended Discharge Plan Discharge Clinical Impression: Bronchopneumonia, UTI (urinary tract infection) Patient Disposition: Still a Patient Condition: Serious
[2025-08-10 15:20] LABS: Add Urine Microscopic? YES; Appearance Urine Turbid (Clear); Glucose Urine UA Negative (Negative); Leukocyte Esterase Ur 3+ LEU/UL (Negative); Need Manual Microscopic Reviewed; Nitrate Urine Negative (Negative); Non Pathogenic Casts >20; Specific Grav Ur 1.014 (1.001-1.035)
[2025-08-10 15:44] LABS: Influenza A QL RT-PCR Negative (Negative); Influenza B QL RT-PCR Negative (Negative); RSV RNA, RT-PCR Negative (Negative); SARS-CoV-2 RNA PCR Negative (Negative)
--- NOTE | 2025-08-10 15:46 | PC.NURSE ---
this RN contacted Xray about PICC line placement, Xray stated PICC line is not in position that is usable.
--- OUTSIDE RECORDS SUMMARY | 2025-08-10 16:10 | XMS_ITS | Encounter Summary ---
Author Organization [facility] Address [address] [place] [address] Care Team Providers Care Turbine Engineer Name Role Phone Luis Fernando Vo MD Primary Care Provider [phone]- [phone] Encounter Details Date Type Department Care Team (Late st Contact Info) Description 01/21/[address] 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 Jar 0. 3:28 PM CDT DERMATOPATHOLOGY LABORATORY [...] by the Dermatopathology Laboratory at [facility], directed by Dr. Azalea Peters. These tests need not be, and therefore are not, approved by the [place] Food and Drug Administration. The tests are used for clinical purposes. Billing Codes Specimen Charges Stain Charges 20777 1 3:28 PM CDT DERMATOPATHOLOGY LABORATORY Embedded Images 3:28 PM CDT DERMATOPATHOLOGY LABORATORY Pathology/Cytolog y TISSUE SPECIMEN FROM SKIN / Unknown 01/20/2019 01/21/2019 11:27 AM CDT Chiki Nicholson MD LAB - PATHOLOGY/CYTOLOGY ORD ERABLES Final Result DERMATOPATHOLOGY LABORATORY [facility] - Department of Dermatology [address], [address] [place] [address], [facility] [phone] documented in this encounter Visit Diagnoses Not on filedocumented in this encounter Care Teams Turbine Engineer Relationship Specialty Start Date End Date Luis Fernando Vo MD [address] [place] [address] [address] [place] [address] PCP - General Cardiovascular Disease 06/06/21 documented as of this encounter
--- OUTSIDE RECORDS SUMMARY | 2025-08-10 16:10 | XMS_ITS | Encounter Summary ---
Author Organization [employer] Address 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
--- OUTSIDE RECORDS SUMMARY | 2025-08-10 16:10 | XMS_ITS | Encounter Summary ---
Author Organization [facility] Address [address] [place] [address] Care Team Providers Care Straightener Name Role Phone Luis Fernando Vo MD Primary Care Provider +1- [phone] Encounter Details Date Type Department Care Team (Late st Contact Info) Description 01/13/2020 Lab Requisition [facility] Care Derm[facility] Lab [address] [facility] 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 Gender Identity Not on file Sexual Orientation Not on file documented as of this encounter Plan of Treatment Not on file documented as of this encounter Procedures Procedure Name Priority Date/Time Associated Diagnosis Comments DERMATOPATHOLOGY Routine 01/12/2020 12:0 0 AM CDT documented in this encounter Results * DERMATOPATHOLOGY (01/12/2020 12:00 AM CDT) Case Report Dermatopathology Report Case: [id number] Authorizing Provider: Chiki Nicholson MD Collected: 01/12/2020 12:00 AM Ordering Location: [facility] Derm[facility] Lab Received: 01/13/2020 01:47 PM Pathologist: [...] of a shave biopsy (2 pieces) measuring [id number] & [id number]. Jar 0. 0 1:40 PM CDT DERMATOPATHOLOGY [...] characteristic determined by the Dermatopathology Laboratory at [facility], directed by Dr. Azalea Peters. These tests need not be, and therefore are not, approved by the [place] Food and Drug Administration. The tests are used for clinical purposes. Billing Codes Specimen Charges Stain Charges 61094 1 0 1:40 PM CDT DERMATOPATHOLOGY LABORATORY Embedded Images 0 1:40 PM CDT DERMATOPATHOLOGY LABORATORY Pathology/Cytolog y TISSUE SPECIMEN FROM SKIN / Unknown 01/12/2020 01/13/2020 1:47 PM CDT Chiki Nicholson MD LAB - PATHOLOGY/CYTOLOGY ORD ERABLES Final Result DERMATOPATHOLOGY LABORATORY [facility] - Department of Dermatology [address] [facility] [place] [address], [facility] [phone] documented in this encounter Visit Diagnoses Not on filedocumented in this encounter Care Teams Straightener Relationship Specialty Start Date End Date Luis Fernando Vo MD [address] [facility] [facility] [place] [address] PCP - General Cardiovascular Disease 06/06/21 documented as of this encounter
--- OUTSIDE RECORDS SUMMARY | 2025-08-10 16:10 | XMS_ITS | Encounter Summary ---
Author Organization [employer] Address 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
--- OUTSIDE RECORDS SUMMARY | 2025-08-10 16:10 | XMS_ITS | Encounter Summary ---
Author Organization [facility] Address [address] [place] [address] Care Team Providers Care Outside Production Inspector Name Role Phone Luis Fernando Vo MD Primary Care Provider +1- [phone] Encounter Details Date Type Department Care Team (Late st Contact Info) Description 09/24/2018 Lab Requisition [facility] Care DermPath Lab [address] [facility], [place] [phone] Chiki Nicholson MD [address] [place] [address] Social History Tobacco Use Types Packs/Day Years Used Date Smoking Tobacco: Former Smokeless Tobacco: Never Alcohol Use Standard Drinks/Week Comments Yes 0 (1 standard drink = 0.6 oz pur e alcohol) Sex and Gender Information Value Date Recorded Sex Assigned at Not on file 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 Gender Identity Not on file Sexual Orientation Not on file documented as of this encounter Plan of Treatment Not on file documented as of this encounter Procedures Procedure Name Priority Date/Time Associated Diagnosis Comments DERMATOPATHOLOGY Routine 09/23/2018 12:0 0 AM NANOELECTRONICS ENGINEER documented in this encounter Results * DERMATOPATHOLOGY (09/23/2018 12:00 AM NANOELECTRONICS ENGINEER) Case Report Dermatopathology Report Case: [id number] Authorizing Provider: Chiki Nicholson MD Collected: 09/23/2018 12:00 AM Pathologist: Mindi Blackman MD Received: 09/24/2018 12:46 PM Specimen: Skin, right post vertex 12:57 PM [facility] DERMATOPATHOLOGY LABORATORY Final Diagnosis Specimen A. 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 The specimen consists of a shave biopsy measuring [id number] mm. Jar 0. 12:57 PM [facility] DERMATOPATHOLOGY LABORATORY Microscopic Description Specimen A. SKIN, right post vertex: Sections reveal parakeratosis, acanthosis and keratinocyte dysmaturation which is most prominent in the lower epidermis. Focal nests are present in the dermis.This lesion is not present at the sampled margin of the specimen. 12:57 PM [facility] DERMATOPATHOLOGY LABORATORY Disclaimer An external and internal positive and negative controls are appropriate for the histochemical, immunohistochemical and immunofluorescence stain(s) in this case (if any), except where stated explicitly. The performance characteristics of the stain(s) cited in this report were developed and its performance characteristic determined by the Dermatopathology Laboratory at [facility]. These tests need not be, and therefore are not, approved by the [place] Food and Drug Administration. The tests are used for clinical purposes. Billing Codes Specimen Charges Stain Charges 23581 1 12:57 PM [facility] DERMATOPATHOLOGY LABORATORY Embedded Images 12:57 PM [facility] DERMATOPATHOLOGY LABORATORY Pathology/Cytolog y TISSUE SPECIMEN FROM SKIN / Unknown 09/23/2018 09/24/2018 12:46 PM [facility] us Chiki Nicholson MD LAB - PATHOLOGY/CYTOLOGY ORD ERABLES Final Result DERMATOPATHOLOGY LABORATORY [facility] - Department of Dermatology [address] [facility], 5th Floor Lab [address] [phone] documented in this encounter Visit Diagnoses Not on filedocumented in this encounter Care Teams Outside Production Inspector Relationship Specialty Start Date End Date Luis Fernando Vo MD [address] [place] [address] [address] [place] [address] PCP - General Cardiovascular Disease 06/06/21 documented as of this encounter
--- OUTSIDE RECORDS SUMMARY | 2025-08-10 16:10 | XMS_ITS | Encounter Summary ---
Author Organization [employer] Address 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
--- OUTSIDE RECORDS SUMMARY | 2025-08-10 16:10 | XMS_ITS | Encounter Summary ---
Author Organization [facility] Address [address] [place] [address] Care Team Providers Care Parts Professional Name Role Phone Luis Fernando Vo MD Primary Care Provider +1- [phone] Encounter Details Date Type Department Care Team (Late st Contact Info) Description 05/02/2021 Lab Requisition [facility] Care DermPath Lab [address] [facility] [place] [address] Chiki Nicholson MD [address] [place] [address] Social History Tobacco Use Types Packs/Day Years Used Date Smoking Tobacco: Former Smokeless Tobacco: Never Alcohol Use Standard Drinks/Week Comments Yes 0 (1 standard drink = 0.6 oz pur e alcohol) Sex and Gender Information Value Date Recorded Sex Assigned at Not on file 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 Gender Identity Not on file Sexual Orientation Not on file documented as of this encounter Plan of Treatment Not on file documented as of this encounter Procedures Procedure Name Priority Date/Time Associated Diagnosis Comments DERMATOPATHOLOGY Routine 05/01/2021 12:0 0 AM CDT documented in this encounter Results * DERMATOPATHOLOGY (05/01/2021 12:00 AM CDT) Case Report Dermatopathology Report Case: [id number] Authorizing Provider: Chiki Nicholson MD Collected: 05/01/2021 12:00 AM Ordering Location: [facility] DermPath Lab Received: 05/02/2021 01:36 PM [...] of a shave biopsy (2 pieces) measuring [id number] & [id number]. Jar 0. 11:34 AM T DERMATOPATHOLOGY LABORATORY [...] Dr. Virginie Allen, who agrees. 11:34 AM [facility] DERMATOPATHOLOGY LABORATORY Disclaimer An external and internal positive and negative controls are appropriate for the histochemical, immunohistochemical and immunofluorescence stain(s) in this case (if any), except where stated explicitly. The performance characteristics of the stain(s) cited in this report were developed and its performance characteristic determined by the Dermatopathology Laboratory at [facility], directed by Dr. Azalea Peters. These tests need not be, and therefore are not, approved by the [place] Food and Drug Administration. The tests are used for clinical purposes. Billing Codes Specimen Charges Stain Charges 34712 1 20359 1 11:34 AM CDT DERMATOPATHOLOGY LABORATORY Embedded Images 11:34 AM CDT DERMATOPATHOLOGY LABORATORY Pathology/Cytolog y TISSUE SPECIMEN FROM SKIN / Unknown 05/01/2021 05/02/2021 1:36 PM CDT Chiki Nicholson MD LAB - PATHOLOGY/CYTOLOGY ORD ERABLES Final Result DERMATOPATHOLOGY LABORATORY [facility] - Department of Dermatology [facility] Medicine [address] [place] [address], [address] [phone] documented in this encounter Visit Diagnoses Not on filedocumented in this encounter Care Teams Parts Professional Relationship Specialty Start Date End Date Luis Fernando Vo MD [facility] [address] [address] PCP - General Cardiovascular Disease 06/06/21 documented as of this encounter
--- OUTSIDE RECORDS SUMMARY | 2025-08-10 16:10 | XMS_ITS | Encounter Summary ---
Author Organization [employer] Address 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
--- OUTSIDE RECORDS SUMMARY | 2025-08-10 16:10 | XMS_ITS | Encounter Summary ---
Author Organization [employer] Address 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
--- OUTSIDE RECORDS SUMMARY | 2025-08-10 16:10 | XMS_ITS | Encounter Summary ---
Author Organization [facility] Address [address] [place] [address] Care Team Providers Care Revenue Accounting Manager Name Role Phone Luis Fernando Vo MD Primary Care Provider +1- [phone] Encounter Details Date Type Department Care Team (Late st Contact Info) Description 02/11/2019 Lab Requisition [facility] Care DermPath Lab [address] [facility] [place] [phone] Chiki Nicholson MD [address] [place] [address] Social History Tobacco Use Types Packs/Day Years Used Date Smoking Tobacco: Former Smokeless Tobacco: Never Alcohol Use Standard Drinks/Week Comments Yes 0 (1 standard drink = 0.6 oz pur e alcohol) Sex and Gender Information Value Date Recorded Sex Assigned at Not on file 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 Gender Identity Not on file Sexual Orientation Not on file documented as of this encounter Plan of Treatment Not on file documented as of this encounter Procedures Procedure Name Priority Date/Time Associated Diagnosis Comments DERMATOPATHOLOGY Routine 02/10/2019 12:0 0 AM CDT documented in this encounter Results * DERMATOPATHOLOGY (02/10/2019 12:00 AM CDT) Case Report Dermatopathology Report Case: [id number] Authorizing Provider: Chiki Nicholson MD Collected: 02/10/2019 [...] cheek.The specimen consists of an ellipse measuring [id number] and is oriented with the suture/notch at [...] in cassettes 3-4. Jar 0. 4:18 PM [facility] DERMATOPATHOLOGY LABORATORY Microscopic Description Specimen A. SKIN, [...] characteristic determined by the Dermatopathology Laboratory at [facility], directed by Dr. Azalea Peters. These tests need not be, and therefore are not, approved by the [place] Food and Drug Administration. The tests are used for clinical purposes. Billing Codes Specimen Charges Stain Charges 36725 1 9 4:18 PM CDT DERMATOPATHOLOGY LABORATORY Embedded Images 9 4:18 PM CDT DERMATOPATHOLOGY LABORATORY Pathology/Cytolog y TISSUE SPECIMEN FROM SKIN / Unknown 02/10/2019 02/11/2019 1:03 PM CDT Chiki Nicholson MD LAB - PATHOLOGY/CYTOLOGY ORD ERABLES Final Result DERMATOPATHOLOGY LABORATORY [facility] - Department of Dermatology [address] [place] [address] [address] Floor Lab [address] [phone] documented in this encounter Visit Diagnoses Not on filedocumented in this encounter Care Teams Revenue Accounting Manager Relationship Specialty Start Date End Date Luis Fernando Vo MD [address] [place] [address] PCP - General Cardiovascular Disease 06/06/21 documented as of this encounter
--- OUTSIDE RECORDS SUMMARY | 2025-08-10 16:10 | XMS_ITS | Encounter Summary ---
Author Organization [employer] Address 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
--- OUTSIDE RECORDS SUMMARY | 2025-08-10 16:10 | XMS_ITS | Clinical Summary ---
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
--- OUTSIDE RECORDS SUMMARY | 2025-08-10 16:10 | XMS_ITS | Encounter Summary ---
Author Organization [employer] Address 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
--- OUTSIDE RECORDS SUMMARY | 2025-08-10 16:10 | XMS_ITS | Encounter Summary ---
Author Organization [employer] Address 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
--- OUTSIDE RECORDS SUMMARY | 2025-08-10 16:10 | XMS_ITS | Encounter Summary ---
Author Organization [employer] Address 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
--- OUTSIDE RECORDS SUMMARY | 2025-08-10 16:10 | XMS_ITS | Encounter Summary ---
Author Organization [employer] Address 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
--- OUTSIDE RECORDS SUMMARY | 2025-08-10 16:10 | XMS_ITS | Encounter Summary ---
Author Organization [employer] Address 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
--- OUTSIDE RECORDS SUMMARY | 2025-08-10 16:10 | XMS_ITS | Encounter Summary ---
Author Organization [employer] Address 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
--- OUTSIDE RECORDS SUMMARY | 2025-08-10 16:10 | XMS_ITS | Encounter Summary ---
Author Organization [employer] Address 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
--- OUTSIDE RECORDS SUMMARY | 2025-08-10 16:10 | XMS_ITS | Encounter Summary ---
Author Organization [employer] Address 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
--- OUTSIDE RECORDS SUMMARY | 2025-08-10 16:10 | XMS_ITS | Encounter Summary ---
Author Organization [facility] Address [address] [facility] [place] [address] Care Team Providers Care Skin Specialist Name Role Phone Luis Fernando Vo MD Primary Care Provider +1- [phone] Encounter Details Date Type Department Care Team (Late st Contact Info) Description 02/06/2023 Lab Requisition [facility] [address] 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 Jar 0. Specimen B: Received is one formalin filled container labeled with the patient's name and designated dorsal right prox forearm. The specimen consists of a shave biopsy measuring [id number] mm. Jar 0. 3 3:46 PM CDT [...] characteristic determined by the Dermatopathology Laboratory at [facility], directed by Dr. Azalea Peters. These tests need not be, and therefore are not, approved by the [place] Food and Drug Administration. The tests are used for clinical purposes. Billing Codes Specimen Charges Stain Charges 51886 67519 1 1 3 3:46 PM CDT DERMATOPATHOLOGY LABORATORY Embedded Images 3 3:46 PM CDT DERMATOPATHOLOGY LABORATORY Pathology/Cytology TISSUE SPECIMEN FROM SKIN / Unknown 02/05/2023 3:33 AM CDT 02/06/2023 2:23 PM CDT Miscellaneous samples (specimen) TISSUE SPECIMEN FROM SKIN / Unknown 02/05/2023 3:33 AM CDT 02/06/2023 2:23 PM CDT us Chiki Nicholson MD LAB - PATHOLOGY/CYTOLOGY ORD ERABLES Final Result DERMATOPATHOLOGY LABORATORY [facility] - Department of Dermatology [place] [address] [facility], 3rd [place] [address], [facility] [phone] documented in this encounter Visit Diagnoses Not on filedocumented in this encounter Care Teams Skin Specialist Relationship Specialty Start Date End Date Luis Fernando Vo MD [address] [place] [address] [address] [place] [address] PCP - General Cardiovascular Disease 06/06/21 documented as of this encounter
--- OUTSIDE RECORDS SUMMARY | 2025-08-10 16:10 | XMS_ITS | Encounter Summary ---
Author Organization [employer] Address 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
--- OUTSIDE RECORDS SUMMARY | 2025-08-10 16:10 | XMS_ITS | Encounter Summary ---
Author Organization [employer] Address 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
--- OUTSIDE RECORDS SUMMARY | 2025-08-10 16:10 | XMS_ITS | Encounter Summary ---
Author Organization [employer] Address 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
--- OUTSIDE RECORDS SUMMARY | 2025-08-10 16:10 | XMS_ITS | Encounter Summary ---
Author Organization [employer] Address 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
--- OUTSIDE RECORDS SUMMARY | 2025-08-10 16:10 | XMS_ITS | Clinical Summary ---
Author Organization [facility] [employer] Address [address] [facility] [place] [address] Care Team Providers Care Cushion Maker Hand Name Role Phone Luis Fernando Vo MD Primary Care Provider +1- [phone] Source Comments [facility] [employer] [facility]non-owned Affiliates and Associated Physician Practices is amultiple site organization consisting of ambulatory clinics and hospital sitesin [place], [place], [place] and [place]. This disclosure is being madepursuant to the Care Everywhere program and may not contain all information available regarding this patient. Last updated 18.[facility] [employer] [facility] 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
--- OUTSIDE RECORDS SUMMARY | 2025-08-10 16:10 | XMS_ITS | Encounter Summary ---
Author Organization [facility] Address [address] [place] [address] Care Team Providers Care Wine Cellar Stock Clerk Name Role Phone Luis Fernando Vo MD Primary Care Provider +1- [phone] Encounter Details Date Type Department Care Team (Late st Contact Info) Description 08/21/2023 Lab Requisition [facility] - [facility] Lab [address] [facility], [place] [address] Chiki Nicholson MD [address] [place] [address] Social History Tobacco Use Types Packs/Day Years Used Date Smoking Tobacco: Former Smokeless Tobacco: Never Alcohol Use Standard Drinks/Week Comments Yes 0 (1 standard drink = 0.6 oz pur e alcohol) nightly gin and tonic Sex and Gender Information Value Date Recorded Sex Assigned at Not on file 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 Jar 0. 3:43 PM CDT DERMATOPATHOLOGY [...] characteristic determined by the Dermatopathology Laboratory at [facility], directed by Dr. Azalea Peters. These tests need not be, and therefore are not, approved by the [place] Food and Drug Administration. The tests are used for clinical purposes. Billing Codes Specimen Charges Stain Charges 23099 1 3 3:43 PM CDT DERMATOPATHOLOGY LABORATORY Embedded Images 3:43 PM CDT DERMATOPATHOLOGY LABORATORY Pathology/Cytolog y TISSUE SPECIMEN FROM SKIN / Unknown 08/20/2023 08/21/2023 1:57 PM CDT Chiki Nicholson MD LAB - PATHOLOGY/CYTOLOGY ORD ERABLES Final Result DERMATOPATHOLOGY LABORATORY [facility] - Department of Dermatology [facility] [address] [place] [address], [address] [phone] documented in this encounter Visit Diagnoses Not on filedocumented in this encounter Care Teams Wine Cellar Stock Clerk Relationship Specialty Start Date End Date Luis Fernando Vo MD [address] [phone] PCP - General Cardiovascular Disease 06/06/21 documented as of this encounter
--- OUTSIDE RECORDS SUMMARY | 2025-08-10 16:10 | XMS_ITS | Encounter Summary ---
Author Organization [facility] Address [address] [place] [address] Care Team Providers Care Computer Graphic Artist Name Role Phone Luis Fernando Vo MD Primary Care Provider +1- [phone] Encounter Details Date Type Department Care Team (Late st Contact Info) Description 04/29/2019 Lab Requisition [facility] [address] [facility], [place] [address] Chiki Nicholson MD [address] [place] [address] Social History Tobacco Use Types Packs/Day Years Used Date Smoking Tobacco: Former Smokeless Tobacco: Never Alcohol Use Standard Drinks/Week Comments Yes 0 (1 standard drink = 0.6 oz pur e alcohol) Sex and Gender Information Value Date Recorded Sex Assigned at Not on file 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 Azalea Peters. These tests need not be, and therefore are not, approved by the [place] Food and Drug Administration. The tests are used for clinical purposes. Billing Codes Specimen Charges Stain Charges 30579 [id number] 1 1 9 5:45 PM CDT DERMATOPATHOLOGY LABORATORY Embedded Images 9 5:45 PM CDT DERMATOPATHOLOGY LABORATORY Pathology/Cytology TISSUE SPECIMEN FROM SKIN / Unknown 04/28/2019 04/29/2019 12:36 PM CDT Miscellaneous samples (specimen) TISSUE SPECIMEN FROM SKIN / Unknown 04/28/2019 04/29/2019 12:36 PM CDT Chiki Nicholson MD LAB - PATHOLOGY/CYTOLOGY ORD ERABLES Final Result DERMATOPATHOLOGY LABORATORY [facility] - Department of Dermatology [address] [place] [address], [address] [phone] documented in this encounter Visit Diagnoses Not on filedocumented in this encounter Care Teams Computer Graphic Artist Relationship Specialty Start Date End Date Luis Fernando Vo MD [address] [place] [address] [place] [phone] PCP - General Cardiovascular Disease 06/06/21 documented as of this encounter
[2025-08-10 16:32] LABS: Hematocrit 35.3 % (42.0-52.0); Hemoglobin 11.3 g/dL (14.0-18.0); Immature Granulocyte Percent A 0.6 % (0-0.5); Lymphocytes Absolute Auto 1.56 K/mm3 (0.9-3.2); Mean Corpuscular HGB Conc 32.0 g/dl (32-36); Mean Corpuscular Hemoglobin 29.4 pg (26-34); Mean Corpuscular Volume 91.9 fl (80-100); Nucleated Red Blood Cells Absolute Auto 0.000 K/mm3 (0.0-0.012); Nucleated Red Blood Cells Perc 0.0 % (0.0-0.2); Platelet Count Result 281 k/mm3 (150-375); Red Blood Count 3.84 M/mm3 (4.6-6.20); White Blood Count 10.5 K/mm3 (4.5-10.0)
[2025-08-10 16:45] LABS: INR 1.9; Prothrombin Time 21.6 Seconds (11.1-14.7)
[2025-08-10 16:46] LABS: Alanine Aminotransferase 82 U/L (6-50); Albumin Level 3.1 g/dL (3.5-5.1); Alkaline Phosphatase 115 U/L (38-126); Anion Gap 6 mmol/L (4-12); Aspartate Amino Transferase 88 U/L (17-59); Bilirubin,Total 0.4 mg/dL (0.2-1.3); Blood Urea Nitrogen 63 mg/dL (9-20); Calcium 9.7 mg/dL (8.4-10.2); Carbon Dioxide 28 mmol/L (22-30); Chloride 100 mmol/L (98-107); Estimated CRCL calculation 28 ml/min; Estimated Glomerular Filt Rate 35; Glucose 107 mg/dL (65-110); Partial Thromboplastin Time 44.6 Seconds (22.3-36.8); Potassium 4.3 mmol/L (3.4-5.0); Sodium 134 mmol/L (137-145); Total Protein 6.7 g/dL (6.3-8.2)
[2025-08-10 16:57] LABS: CRP 16.1 mg/dL (<1.0)
[2025-08-10] MEDS: MEROPENEM 1 GM in SODIUM CHLORIDE 0.9% IV 100 ML 200 ML IVPB (18:06)
--- NOTE | 2025-08-10 18:09 | PM.IMHP ---
H&P: HPI History of Present Illness Date/Time: 08/10/25 18:09 Chief Complaint: Altered mental status Narrative: 89-year-old male past medical history BPH, prostate cancer, GERD, lung cancer s/p radiation, CAD s/p CABG x5 in 2015, HTN, COPD, diastolic dysfunction with chronic failure presented to the ED on 08/10/2025 from [facility] with altered mental status and weakness noticed by staff. Unable to obtain further history due to patient's mental status being A&O x1 to self. Patient was recently admitted at [facility] from 07/30/2025 to 08/03/2025 with pneumonia and UTI with sepsis and bacteremia. During that admission, blood cultures grew ESBL. Patient was subsequently discharged with IV ertapenem through midline in the left arm to complete 7 day course. Patient was to then start cephalexin for UTI prophylaxis after ertapenem course. Midline in left arm infiltrated and was switched to the right arm at the rehab facility. ED course: UA concerning for UTI. Vital signs stable on arrival to ED. CBC revealed WBC 10.5 and hemoglobin 11.3. Creatinine 1.85 with baseline being normal. AST 88, ALT 82, alk-phos 115. BUN 63. CRP 16.1. Viral PCR negative. Blood cultures drawn and patient restarted on meropenem. Chest x-ray reveals small bilateral pleural effusions and with associated bibasilar atelectasis and/or pneumonia. Head CT reveals no acute intracranial abnormality. CT chest abdomen pelvis reveals small focus of right lower lobe bronchopneumonia superimposed on chronic lung disease, no acute intra-abdominal process, thickened appendix, and left renal lesion incompletely evaluated. 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 BPH (benign prostatic hyperplasia) Overweight (BMI 25.0-29.9) Prostate CA Gout Arthritis Chronic GERD Lung cancer COPD (chronic obstructive pulmonary disease) HTN (hypertension) Hypercholesterolemia CAD (coronary artery disease) Surgical History Surgical History S/P CABG (coronary artery bypass graft) 5 V 2015 Social History Social History Social History: Caffeine-coffe/tea/soda Smoking packs per day: 1 Smoking cigarettes per day: 20.0 Years smoked: 20 Smoking pack-years: 20.00 Smoking status: Former smoker Tobacco type: cigarettes Second hand tobacco smoke exposure: No Smoking end date: 11/04/94 Alcohol intake: never Drinks per week: 7 Alcohol use details: 1 GIN & TONIC/DAY Substance use: never Substance use type: does not use Lack of Transportation: No Lack of Food: Never True Current Housing: I Have Housing Concerned About Future Housing: No Difficulty Paying Gas/Electric Bills: No Difficulty Paying for Meds: No Currently Unemployed: No Education: Associate Degree Difficulty w/ Childcare or Family Care: YES Living arrangements: with family Additional living arrangements comments: Gender identity (if verbalized by the patient): Male Sexual Orientation (if Verbalized by the Patient): Straight or Heterosexual Spiritual care concerns: No Meds Home Medications and Allergies Home Medications ?Medication ?Instructions ?Recorded ?Confirmed ?Type allopurinol 100 mg tablet 100 mg PO DAILY 10/11/20 08/10/25 History tamsulosin 0.4 mg capsule 0.4 mg PO DAILY 10/11/20 08/10/25 History aspirin 81 mg tablet,delayed 81 mg PO DAILY 11/28/20 08/10/25 History release udwjtxsnoosi-menwfmtn-tzvgsz tablet 1 tablet PO DAILY 11/28/20 08/10/25 History prochlorperazine maleate 10 mg 10 mg PO Q8H PRN Nausea 07/26/21 08/10/25 History tablet (Compazine) albuterol sulfate 90 mcg/actuation 2 inh inhalation Q4H PRN shortness 03/17/24 08/10/25 History aerosol inhaler of breath or wheezing furosemide 40 mg tablet 40 mg PO QAM 03/17/24 08/10/25 History metoprolol tartrate 50 mg tablet 50 mg PO BID 03/17/24 08/10/25 History potassium chloride 10 mEq 10 meq PO BID 03/17/24 08/10/25 History capsule,extended release rosuvastatin 20 mg tablet 20 mg PO DAILY 03/17/24 08/10/25 History fluticasone fur. 200 mcg-umeclid 1 inh inhalation DAILY 07/30/25 08/10/25 History 62.5 mcg-vilant 25 mcg inhalat.powder (Trelegy Ellipta) apixaban 5 mg tablet (Eliquis) 5 mg PO Q12HR #60 tabs 08/01/25 08/10/25 Rx cephalexin 250 mg capsule 250 mg PO HS #30 caps 08/01/25 08/10/25 Rx acetaminophen 325 mg tablet 975 mg PO Q8H 08/10/25 08/10/25 History benzocaine 6 mg-menthol 10 mg 1 jaime mucous membrane Q2H PRN sore 08/10/25 08/10/25 History lozenges throat benzonatate 100 mg capsule 100 mg PO TID 08/10/25 08/10/25 History cetirizine 10 mg tablet (24Hour 10 mg PO DAILY 08/10/25 08/10/25 History Allergy) gabapentin 100 mg capsule 100 mg PO BID 08/10/25 08/10/25 History pantoprazole 40 mg tablet,delayed 40 mg PO QAM 08/10/25 08/10/25 History release polyethylene glycol 3350 17 gram 17 g PO QAM 08/10/25 08/10/25 History oral powder packet sacubitril 24 mg-valsartan 26 mg 2 tablet PO BID 08/10/25 08/10/25 History tablet (Entresto) senna-docusate sodium tablet 2 tablet PO BID 08/10/25 08/10/25 History tramadol 50 mg tablet 25 mg PO Q6H PRN PAIN RATED 6 OR 08/10/25 08/10/25 History GREATER Allergies Allergy/AdvReac Type Severity Reaction Status Date / Time No Known Allergies Allergy Verified 08/10/25 15:56 Vital Signs Vital Signs - 24 hr 08/10/25 14:13 08/10/25 15:00 08/10/25 15:15 Temperature 97.6 F Pulse Rate 65 67 68 Respiratory Rate 22 H 20 20 Blood Pressure 123/65 Pulse Oximetry 98 100 99 Oxygen Delivery Room Air 08/10/25 15:30 08/10/25 16:00 08/10/25 16:15 Temperature Pulse Rate 71 74 71 Respiratory Rate 18 13 20 Blood Pressure Pulse Oximetry 100 100 99 Oxygen Delivery 08/10/25 16:30 08/10/25 16:45 08/10/25 17:01 Temperature Pulse Rate 74 77 Respiratory Rate 17 19 Blood Pressure 115/58 L Pulse Oximetry 100 99 Oxygen Delivery Exam Narrative: GENERAL: in no acute distress. HEAD: Normocephalic, atraumatic. EYES: PERRLA. Conjunctivae clear. NOSE: Normal no drainage. NECK: Trachea midline. No adenopathy, no masses. RESPIRATORY: Airway patent, respirations nonlabored. CTA. CARDIOVASCULAR: Regular rate and rhythm without murmurs, rubs, or gallops. BREASTS: Defer GASTROINTESTINAL: Abdomen is soft and nontender. No organomegaly. Bowel sounds normal in all quadrants. Obese GENITOURINARY: Indwelling Segundo with yellow urine MUSCULOSKELETAL: Moves all extremities. No gross deformities. SKIN: Warm, dry, scattered ecchymosis. NEURO: A&O X1. PSYCHIATRIC: Pleasantly confused H&P: Results Labs Labs: Short CBC 08/10/25 Range/Units 16:24 WBC 10.5 H (4.5-10.0) K/mm3 Hgb 11.3 L (14.0-18.0) g/dL Hct 35.3 L (42.0-52.0) % Plt Count 281 (150-375) k/mm3 BMP 08/10/25 16:24 Sodium 134 L Potassium 4.3 Chloride 100 Carbon Dioxide 28 BUN 63 H Creatinine 1.85 H Glucose 107 Calcium 9.7 Liver Function 08/10/25 Range/Units 16:24 Total Bilirubin 0.4 (0.2-1.3) mg/dL AST 88 H (17-59) U/L ALT 82 H (6-50) U/L Alkaline Phosphatase 115 (38-126) U/L Albumin 3.1 L (3.5-5.1) g/dL Urine 08/10/25 Range/Units 15:00 Urine Color Yellow (Yellow) Urine Appearance Turbid H (Clear) Urine pH 5.0 (5.0-9.0) Ur Specific [place] 1.014 (1.001-1.035) Urine Protein Trace (Negative) mg/dL Urine Glucose (UA) Negative (Negative) mg/dL Assessment and Plan Assessment and plan (1) Pneumonia: Qualifiers: Laterality: bilateral Lung location: unspecified part of lung Pneumonia type: due to unspecified organism Qualified Code(s): J18.9 - Pneumonia, unspecified organism Code(s): J18.9 - Pneumonia, unspecified organism Status: Acute Assessment and Plan: Recently discharged with pneumonia. Blood cultures grew ESBL during last admission. Did not meet SIRS criteria, however blood cultures drawn. Chest x-ray reveals small bilateral pleural effusions and with associated bibasilar atelectasis and/or pneumonia. CT chest abdomen pelvis reveals small focus of right lower lobe bronchopneumonia superimposed on chronic lung disease. WBC 10.5. -restarted meropenem 1 g q.12 on 08/10 -daily CBC -DuoNebs p.r.n. -Tylenol p.r.n. -Mucinex 600 Q 12 -lozenge PRN (2) UTI (urinary tract infection): Code(s): N39.0 - Urinary tract infection, site not specified Status: Acute Assessment and Plan: UA concerning for UTI with 3+ blood, 3+ leukocyte esterase, rbc's > 100, WBC 21-50. Urine culture grew Klebsiella pneumoniae on 07/30 with multiple resistances, see report -culture showed Klebsiella previously susceptible to meropenem, started on 08/11 in the ED -hold cephalexin 250 mg HS until meropenem course completed -currently complicated by history of intermittent straight catheterization, Segundo placed in the ED on 08/10 (3) Diastolic dysfunction with chronic heart failure: Code(s): I50.32 - Chronic diastolic (congestive) heart failure Status: Chronic Assessment and Plan: -Continue Entresto 2 tabs Q 12 -continue furosemide 40 mg daily -potassium chloride 10 mEq p.o. b.i.d. (4) GERD (gastroesophageal reflux disease): Qualifiers: Esophagitis presence: esophagitis presence not specified Qualified Code(s): K21.9 - Gastro-esophageal reflux disease without esophagitis Code(s): K21.9 - Gastro-esophageal reflux disease without esophagitis Status: Acute Assessment and Plan: Continue daily pantoprazole 40 mg (5) BPH (benign prostatic hyperplasia): Qualifiers: Lower urinary tract symptom detail: urinary retention Lower urinary tract symptom presence: symptoms present Qualified Code(s): N40.1 - Benign prostatic hyperplasia with lower urinary tract symptoms; R33.8 - Other retention of urine Code(s): N40.0 - Benign prostatic hyperplasia without lower urinary tract symptoms Status: Acute Assessment and Plan: History of intermittent straight cath after prostate cancer. Currently has indwelling Segundo catheter in place due to retention and noted in the emergency department on 08/10. -Continue tamsulosin 0.4 daily (6) COPD (chronic obstructive pulmonary disease): Qualifiers: COPD type: unspecified COPD Qualified Code(s): J44.9 - Chronic obstructive pulmonary disease, unspecified Code(s): J44.9 - Chronic obstructive pulmonary disease, unspecified Status: Chronic Assessment and Plan: Not in acute exacerbation -DuoNebs p.r.n. -continue Trelegy Ellipta (7) HTN (hypertension): Qualifiers: Hypertension type: primary hypertension Qualified Code(s): I10 - Essential (primary) hypertension Code(s): I10 - Essential (primary) hypertension Status: Acute Assessment and Plan: Metoprolol 50 q.12 hours (8) Hypercholesterolemia: Code(s): E78.00 - Pure hypercholesterolemia, unspecified Status: Acute Assessment and Plan: Continue rosuvastatin 20 mg daily (9) Afib: Code(s): I48.91 - Unspecified atrial fibrillation Status: Acute Assessment and Plan: Sinus rhythm on ECG in ED -Continue apixaban and metoprolol Plan Diet: Heart healthy diet GI prophylaxis: Pantoprazole 40 daily DVT prophylaxis: Apixaban lines/drains: Peripheral IV, indwelling Segundo catheter Fluids: No fluids in the ED Code status: Full Quality VTE Prophylaxis VTE prophylaxis: pharmacologic ordered Hospitalist MIPS Advance Care Plan I have confirmed that the patient's Advanced Care Plan is present, code status is documented, or surrogate decision maker is listed in patient medical record.: Yes Medication Reconciliation I have utilized all available resources to obtain, update and review the patients current medications (includes all prescriptions, OTC, herbals, cannabis, and nutritional supplements).: Yes
--- NOTE | 2025-08-10 20:12 | ADMIMU ---
This patient, Cedric Mckinney, was admitted to IMU status, and placed in IMU Room 205-02 at 1957. Patient/family oriented to hospital policies and general routines including ID bracelet, bed and alarms, visiting hours, pain management, procedures, bathroom and other care routines, personal items, smoking policy, room service/diet, and visiting hours. Valuables list has been completed. Information on how to activate the Rapid Response Team has been discussed. Patient/Family are encouraged to report perceived risks to care and to ask questions if they do not understand what they are told or what they should do.
[2025-08-11] VITALS (15 sets, daily range): BP systolic 125–157; BP diastolic 54–93; PULSE 67–102; RESP 14–20; TEMP 36.6–37.1; O2SAT 93–95
[2025-08-11] MEDS: BENZOCAINE/MENTHOL (*BKC) 18 EA LOZENGE 1 LOZENGE PO (00:12)
--- NOTE | 2025-08-11 05:45 | WNDPHOTO ---
PHOTO ONLY - See Nursing Notes and/ or assessments for documentation.
--- NOTE | 2025-08-11 05:48 | WNDPHOTO ---
PHOTO ONLY - See Nursing Notes and/ or assessments for documentation.
[2025-08-11] MEDS: MEROPENEM 1 GM in SODIUM CHLORIDE 0.9% IV 100 ML 200 ML IVPB ×2 (05:55→17:25)
[2025-08-11] MEDS: POTASSIUM CHLORIDE 10 MEQ ER TABLET PO ×2 (09:16→16:37)
[2025-08-11] MEDS: SACUBITRIL/VALSARTAN 24-26 MG TABLET 2 TAB PO ×2 (09:18→21:17)
[2025-08-11] MEDS: OPTI-GEN TAB 1 TABLET PO (09:18)
[2025-08-11] MEDS: METOPROLOL TARTRATE 50 MG TAB PO ×2 (09:18→21:17)
[2025-08-11] MEDS: PANTOPRAZOLE 40 MG TABLET PO (09:19)
[2025-08-11] MEDS: TAMSULOSIN HCL 0.4 MG CAPSULE PO (09:19)
[2025-08-11] MEDS: ROSUVASTATIN 20 MG TABLET PO (09:19)
[2025-08-11] MEDS: APIXABAN 5 MG TABLET PO ×2 (09:19→21:18)
[2025-08-11] MEDS: LORATADINE 10 MG TABLET PO (09:19)
[2025-08-11] MEDS: BENZONATATE 100 MG CAPSULE PO ×3 (09:20→16:37)
[2025-08-11] MEDS: ASPIRIN 81 MG ENTERIC TABLET PO (09:20)
[2025-08-11] MEDS: FUROSEMIDE 40 MG TABLET PO (09:20)
[2025-08-11] MEDS: guaiFENesin 12 HR 600 MG TABCR PO ×2 (09:20→21:18)
[2025-08-11] MEDS: GABAPENTIN 100 MG CAPSULE PO ×2 (09:20→16:37)
[2025-08-11] MEDS: SENNA/DOCUSATE SODIUM TABLET 2 TAB PO ×2 (09:20→16:37)
[2025-08-11] MEDS: FLUTICASONE/UMECLIDIN/VILANTER 200-62.5-25 MCG ELLIPTA 1 PUFF INHALATION (11:48)
--- NOTE | 2025-08-11 16:56 | PC.NURSE ---
Pt 3rd tele - report given to Savanah RN- pt moved to room 317 via bed accompanied by staff and - belongings with pt ; telemetry on
--- NOTE | 2025-08-11 17:45 | PC.NURSE ---
This patient, Cedric Mckinney, was received from [IMU room 205 ] on 08/11/25 at 1650. Report was called from Consuelo. Patient/family oriented to unit policies and routines
--- NOTE | 2025-08-11 18:19 | PM.IMPN ---
Progress Note: A&P Assessment and Plan (1) Pneumonia: Qualifiers: Laterality: bilateral Lung location: unspecified part of lung Pneumonia type: due to unspecified organism Qualified Code(s): J18.9 - Pneumonia, unspecified organism Code(s): J18.9 - Pneumonia, unspecified organism Status: Acute Assessment and Plan: Recently discharged with pneumonia. Blood cultures grew ESBL during last admission. Did not meet SIRS criteria, however blood cultures drawn. Chest x-ray reveals small bilateral pleural effusions and with associated bibasilar atelectasis and/or pneumonia. CT chest abdomen pelvis reveals small focus of right lower lobe bronchopneumonia superimposed on chronic lung disease. WBC 10.5. -restarted meropenem 1 g q.12 on 08/10 -daily CBC -DuoNebs p.r.n. -Tylenol p.r.n. -Mucinex 600 Q 12 -lozenge PRN (2) UTI (urinary tract infection): Code(s): N39.0 - Urinary tract infection, site not specified Status: Acute Assessment and Plan: UA concerning for UTI with 3+ blood, 3+ leukocyte esterase, rbc's > 100, WBC 21-50. Urine culture grew Klebsiella pneumoniae on 07/30 with multiple resistances, see report -culture showed Klebsiella previously susceptible to meropenem, started on 08/11 in the ED -hold cephalexin 250 mg HS until meropenem course completed -currently complicated by history of intermittent straight catheterization, Segundo placed in the ED on 08/10 (3) Diastolic dysfunction with chronic heart failure: Code(s): I50.32 - Chronic diastolic (congestive) heart failure Status: Chronic Assessment and Plan: -Continue Entresto 2 tabs Q 12 -continue furosemide 40 mg daily -potassium chloride 10 mEq p.o. b.i.d. (4) GERD (gastroesophageal reflux disease): Qualifiers: Esophagitis presence: esophagitis presence not specified Qualified Code(s): K21.9 - Gastro-esophageal reflux disease without esophagitis Code(s): K21.9 - Gastro-esophageal reflux disease without esophagitis Status: Acute Assessment and Plan: Continue daily pantoprazole 40 mg (5) BPH (benign prostatic hyperplasia): Qualifiers: Lower urinary tract symptom presence: symptoms present Lower urinary tract symptom detail: urinary retention Qualified Code(s): N40.1 - Benign prostatic hyperplasia with lower urinary tract symptoms; R33.8 - Other retention of urine Code(s): N40.0 - Benign prostatic hyperplasia without lower urinary tract symptoms Status: Acute Assessment and Plan: History of intermittent straight cath after prostate cancer. Currently has indwelling Segundo catheter in place due to retention and noted in the emergency department on 08/10. -Continue tamsulosin 0.4 daily (6) COPD (chronic obstructive pulmonary disease): Qualifiers: COPD type: unspecified COPD Qualified Code(s): J44.9 - Chronic obstructive pulmonary disease, unspecified Code(s): J44.9 - Chronic obstructive pulmonary disease, unspecified Status: Chronic Assessment and Plan: Not in acute exacerbation -DuoNebs p.r.n. -continue Trelegy Ellipta (7) HTN (hypertension): Qualifiers: Hypertension type: primary hypertension Qualified Code(s): I10 - Essential (primary) hypertension Code(s): I10 - Essential (primary) hypertension Status: Acute Assessment and Plan: Metoprolol 50 q.12 hours (8) Hypercholesterolemia: Code(s): E78.00 - Pure hypercholesterolemia, unspecified Status: Acute Assessment and Plan: Continue rosuvastatin 20 mg daily (9) Afib: Code(s): I48.91 - Unspecified atrial fibrillation Status: Acute Assessment and Plan: Sinus rhythm on ECG in ED -Continue apixaban and metoprolol Plan Patient with AMS change suspect 2/2 recurrent UTI with ESBL and there a concern patient may pneumonia and being treated with meropenem, patient is still quite confused and unable to provider any ROS or hostory, patient has sitter, once patient UTI symptoms improve his mental status will improve, and further recommendation to follow, will monitor. Diet: Heart healthy diet GI prophylaxis: Pantoprazole 40 daily DVT prophylaxis: Apixaban lines/drains: Peripheral IV, indwelling Segundo catheter Fluids: No fluids in the ED Code status: Full Subjective Date/time seen: 08/11/25 18:19 Interval history: Altered mental status H&P-Narrative: 89-year-old male past medical history BPH, prostate cancer, GERD, lung cancer s/p radiation, CAD s/p CABG x5 in 2014, HTN, COPD, diastolic dysfunction with chronic failure presented to the ED on 08/10/2025 from [facility] with altered mental status and weakness noticed by staff. Unable to obtain further history due to patient's mental status being A&O x1 to self. Patient was recently admitted at [facility] from 07/30/2025 to 08/03/2025 with pneumonia and UTI with sepsis and bacteremia. During that admission, blood cultures grew ESBL. Patient was subsequently discharged with IV ertapenem through midline in the left arm to complete 7 day course. Patient was to then start cephalexin for UTI prophylaxis after ertapenem course. Midline in left arm infiltrated and was switched to the right arm at the rehab facility. Patient with AMS change suspect 2/2 recurrent UTI with ESBL and there a concern patient may pneumonia and being treated with meropenem, patient is still quite confused and unable to provider any ROS or hostory, patient has sitter, once patient UTI symptoms improve his mental status will improve, and further recommendation to follow, will monitor. Review of Systems Review of Systems: ROS unobtainable: Yes unobtainable due to mental status (A&Ox1) Exam Narrative: Elderly frail Patient is comfortable, NAD HEENT: eyes are clear and none icteric LUNGS:CTA HEART: RR S1S2 ABD: BS+, Soft and nontender Lower extremities: no edema SKIN: nonjaundiced Neuro: grossly intact. Objective Data Vital Signs Vital Signs: Vital Signs - 24 hr 08/10/25 19:45 08/10/25 19:53 08/10/25 22:00 Temperature 36.4 C L Pulse Rate 77 78 91 Respiratory Rate 16 22 H Blood Pressure 110/56 L 119/59 L Pulse Oximetry 100 98 08/10/25 23:36 08/11/25 00:00 08/11/25 02:00 Temperature 36.7 C Pulse Rate 84 86 95 Respiratory Rate 18 Blood Pressure 144/52 H Pulse Oximetry 99 08/11/25 04:00 08/11/25 04:00 08/11/25 06:00 Temperature 36.9 C Pulse Rate 92 87 96 Respiratory Rate 20 Blood Pressure 149/67 H Pulse Oximetry 95 08/11/25 08:00 08/11/25 08:35 08/11/25 09:18 Temperature 36.6 C Pulse Rate 102 H 93 98 Respiratory Rate 18 Blood Pressure 157/73 H Pulse Oximetry 93 08/11/25 10:00 08/11/25 11:28 08/11/25 11:52 Temperature 37.1 C Pulse Rate 81 77 78 Respiratory Rate 20 14 Blood Pressure 154/77 H Pulse Oximetry 94 08/11/25 12:00 08/11/25 14:00 08/11/25 16:05 Temperature 36.9 C Pulse Rate 67 78 85 Respiratory Rate 18 Blood Pressure 125/54 L Pulse Oximetry 95 Intake/Output Intake/Output: Intake & Output 08/08/25 08/09/25 08/10/25 08/11/25 23:59 23:59 23:59 23:59 Intake Total 100 810 Output Total 1400 Balance 100 -590 Meds/Results Medications: Active Medications Generic Name Dose Route Start Last Admin Trade Name Freq PRN Reason Stop Dose Admin Acetaminophen 650 mg 08/11/25 00:22 Acetaminophen 325 Mg Tablet PO Q6H PRN Mild Pain (1-3) or Fever Albuterol 2 puff 08/10/25 21:20 Albuterol Sulfate (*Sp) Aerosol 1 Puff INHALATION Q4HRT PRN Shortness Of Breath Or Wheezin Albuterol/Ipratropium 3 ml 08/11/25 00:09 Ipratropium 0.5 Mg/Albuterol Sulfate 2.5 Mg (Base) Ampul.Neb 3 Ml INHALATION Q6HRT PRN Shortness of breath and wheezi Allopurinol 100 mg 08/11/25 09:00 08/11/25 09:19 Allopurinol 100 Mg Tablet PO 100 mg DAILY NIGEL Administration Apixaban 5 mg 08/11/25 09:00 08/11/25 09:19 Apixaban 5 Mg Tablet PO 5 mg Q12HR NIGEL Administration Aspirin 81 mg 08/11/25 09:00 08/11/25 09:20 Aspirin 81 Mg Enteric Tablet PO 81 mg DAILY NIGEL Administration Benzocaine 1 lozenge 08/10/25 23:18 08/11/25 00:12 Benzocaine/Menthol (*Bkc) 18 Ea Lozenge PO 1 lozenge PRN PRN Administration Sore Throat Benzonatate 100 mg 08/11/25 09:00 08/11/25 16:37 Benzonatate 100 Mg Capsule PO 100 mg TID NIGEL Administration Cephalexin HCl 250 mg 08/11/25 21:00 Cephalexin 250 Mg Capsule PO HS [facility] Fluticasone/Umeclidinium/Vilanterol 1 puff 08/11/25 08:00 08/11/25 11:48 Fluticasone/Umeclidin/Vilanter 200-62.5-25 Mcg Ellipta INHALATION 1 puff DAILYRT NIGEL Administration Furosemide 40 mg 08/11/25 09:00 08/11/25 09:20 Furosemide 40 Mg Tablet PO 40 mg QAM NIGEL Administration Gabapentin 100 mg 08/11/25 09:00 08/11/25 16:37 Gabapentin 100 Mg Capsule PO 100 mg BID NIGEL Administration Guaifenesin 600 mg 08/11/25 09:00 08/11/25 09:20 Guaifenesin 12 Hr 600 Mg Tabcr PO 600 mg Q12HR NIGEL Administration Meropenem 1 gm/ Sodium 100 mls @ 200 mls/hr 08/10/25 18:00 08/11/25 17:25 Chloride IVPB 200 mls/hr Q12H NIGEL Administration Loratadine 10 mg 08/11/25 09:00 08/11/25 09:19 Loratadine 10 Mg Tablet PO 10 mg QAM NIGEL Administration Metoprolol Tartrate 50 mg 08/11/25 09:00 08/11/25 09:18 Metoprolol Tartrate 50 Mg Tab PO 50 mg Q12HR NIGEL Administration Multivitamins/Minerals 1 tablet 08/11/25 09:00 08/11/25 09:18 Opti-Gen Tab PO 1 tablet DAILY NIGEL Administration Pantoprazole Sodium 40 mg 08/11/25 09:00 08/11/25 09:19 Pantoprazole 40 Mg Tablet PO 40 mg QAM NIGEL Administration Polyethylene Glycol 17 gm 08/11/25 09:00 08/11/25 09:21 Polyethylene Glycol 3350 17 Gm Powd.Pack PO 17 gm QAM NIGEL Administration Potassium Chloride 10 meq 08/11/25 09:00 08/11/25 16:37 Potassium Chloride 10 Meq Er Tablet PO 10 meq BID NIGEL Administration Prochlorperazine Maleate 10 mg 08/10/25 21:20 Prochlorperazine Maleate 5 Mg Tablet PO Q8H PRN Nausea Rosuvastatin Calcium 20 mg 08/11/25 09:00 08/11/25 09:19 Rosuvastatin 20 Mg Tablet PO 20 mg DAILY NIGEL Administration Sacubitril/Valsartan 2 tab 08/11/25 09:00 08/11/25 09:18 Sacubitril/Valsartan 24-26 Mg Tablet PO 2 tab Q12HR NIGEL Administration Senna/Docusate Sodium 2 tab 08/11/25 09:00 08/11/25 16:37 Senna/Docusate Sodium Tablet PO 2 tab BID NIGEL Administration Tamsulosin HCl 0.4 mg 08/11/25 09:00 08/11/25 09:19 Tamsulosin Hcl 0.4 Mg Capsule PO 0.4 mg DAILY NIGEL Administration Tramadol HCl 25 mg 08/10/25 21:20 Tramadol Hcl (*Crx) 25 Mg Tablet PO Q6H PRN Pain Rated 6 or Greater Radiology Results: ITS Impressions Chest X-Ray 08/10/25 15:12 IMPRESSION: 1. Small bilateral pleural effusions with associated bibasilar atelectasis and/or pneumonia. Head CT 08/10/25 16:05 Impression: 1.No acute intracranial abnormality. Chest/Abdomen/Pelvis CT 08/10/25 17:25 IMPRESSION: 1. Small focus of right lower lobe bronchopneumonia superimposed on chronic lung disease. 2. No acute intra-abdominal process. 3. Thickened appendix, correlate for symptoms of chronic appendicitis. The differential includes an appendiceal lesion, adnexal neoplasm is not excluded. Surgical consultation suggested. 4. Left renal lesion incompletely evaluated. Contrast-enhanced CT or MRI is recommended Quality VTE Prophylaxis VTE prophylaxis: pharmacologic ordered
[2025-08-11] MEDS: CEPHALEXIN 250 MG CAPSULE PO (21:17)
[2025-08-12] VITALS (11 sets, daily range): BP systolic 127–130; BP diastolic 45–88; PULSE 67–97; RESP 16–18; TEMP 36–36.6; O2SAT 93–97; BMI 30.6
[2025-08-12] MEDS: MEROPENEM 1 GM in SODIUM CHLORIDE 0.9% IV 100 ML 200 ML IVPB ×2 (05:39→17:33)
[2025-08-12 05:43] LABS: Hematocrit 38.2 % (42.0-52.0); Hemoglobin 12.0 g/dL (14.0-18.0); Mean Corpuscular HGB Conc 31.4 g/dl (32-36); Mean Corpuscular Hemoglobin 29.9 pg (26-34); Mean Corpuscular Volume 95.0 fl (80-100); Platelet Count Result 303 k/mm3 (150-375); Red Blood Count 4.02 M/mm3 (4.6-6.20); White Blood Count 9.7 K/mm3 (4.5-10.0)
--- NOTE | 2025-08-12 06:29 | PC.NURSE ---
Called hospitalist office to reach hospitalist. Reaching out to let them know there was observable hematuria and possible GI based on observation of this mornings BM.
[2025-08-12 06:54] LABS: Anion Gap 6 mmol/L (4-12); Blood Urea Nitrogen 43 mg/dL (9-20); Calcium 9.9 mg/dL (8.4-10.2); Carbon Dioxide 29 mmol/L (22-30); Chloride 104 mmol/L (98-107); Estimated CRCL calculation 42 ml/min; Estimated Glomerular Filt Rate 59; Glucose 135 mg/dL (65-110); Magnesium 2.3 mg/dL (1.6-2.3); Potassium 4.5 mmol/L (3.4-5.0); Sodium 139 mmol/L (137-145)
[2025-08-12] MEDS: FUROSEMIDE 40 MG TABLET PO (12:06)
[2025-08-12] MEDS: METOPROLOL TARTRATE 50 MG TAB PO ×2 (12:06→21:42)
[2025-08-12] MEDS: GABAPENTIN 100 MG CAPSULE PO ×2 (12:06→17:32)
[2025-08-12] MEDS: POTASSIUM CHLORIDE 10 MEQ ER TABLET PO ×2 (12:07→17:32)
[2025-08-12] MEDS: SACUBITRIL/VALSARTAN 24-26 MG TABLET 2 TAB PO ×2 (12:07→21:42)
[2025-08-12] MEDS: guaiFENesin 12 HR 600 MG TABCR PO ×2 (12:07→21:42)
[2025-08-12] MEDS: BENZONATATE 100 MG CAPSULE PO ×2 (12:08→17:32)
--- NOTE | 2025-08-12 17:17 | P.PNIM_ITS ---
Progress Note: A&P Assessment and Plan (1) Pneumonia: Qualifiers: Laterality: bilateral Lung location: unspecified part of lung Pneumonia type: due to unspecified organism Qualified Code(s): J18.9 - Pneumonia, unspecified organism Code(s): J18.9 - Pneumonia, unspecified organism Status: Acute Assessment and Plan: Recently discharged with pneumonia. Blood cultures grew ESBL during last admission. Did not meet SIRS criteria, however blood cultures drawn. Chest x-ray reveals small bilateral pleural effusions and with associated bibasilar atelectasis and/or pneumonia. CT chest abdomen pelvis reveals small focus of right lower lobe bronchopneumonia superimposed on chronic lung disease. WBC 10.5. -restarted meropenem 1 g q.12 on 08/10 -daily CBC -DuoNebs p.r.n. -Tylenol p.r.n. -Mucinex 600 Q 12 -lozenge PRN (2) UTI (urinary tract infection): Code(s): N39.0 - Urinary tract infection, site not specified Status: Acute Assessment and Plan: UA concerning for UTI with 3+ blood, 3+ leukocyte esterase, rbc's > 100, WBC 21- 50. Urine culture grew Klebsiella pneumoniae on 07/30 with multiple resistances, see report -culture showed Klebsiella previously susceptible to meropenem, started on 08/11 in the ED -hold cephalexin 250 mg HS until meropenem course completed -currently complicated by history of intermittent straight catheterization, Segundo placed in the ED on 08/10 (3) Diastolic dysfunction with chronic heart failure: Code(s): I50.32 - Chronic diastolic (congestive) heart failure Status: Chronic Assessment and Plan: -Continue Entresto 2 tabs Q 12 -continue furosemide 40 mg daily -potassium chloride 10 mEq p.o. b.i.d. (4) GERD (gastroesophageal reflux disease): Qualifiers: Esophagitis presence: esophagitis presence not specified Qualified Code(s): K21.9 - Gastro-esophageal reflux disease without esophagitis Code(s): K21.9 - Gastro-esophageal reflux disease without esophagitis Status: Acute Assessment and Plan: Continue daily pantoprazole 40 mg (5) BPH (benign prostatic hyperplasia): Qualifiers: Lower urinary tract symptom presence: symptoms present Lower urinary tract symptom detail: urinary retention Qualified Code(s): N40.1 - Benign prostatic hyperplasia with lower urinary tract symptoms; R33.8 - Other retention of urine Code(s): N40.0 - Benign prostatic hyperplasia without lower urinary tract symptoms Status: Acute Assessment and Plan: History of intermittent straight cath after prostate cancer. Currently has indwelling Segundo catheter in place due to retention and noted in the emergency department on 08/10. -Continue tamsulosin 0.4 daily (6) COPD (chronic obstructive pulmonary disease): Qualifiers: COPD type: unspecified COPD Qualified Code(s): J44.9 - Chronic obstructive pulmonary disease, unspecified Code(s): J44.9 - Chronic obstructive pulmonary disease, unspecified Status: Chronic Assessment and Plan: Not in acute exacerbation -DuoNebs p.r.n. -continue Trelegy Ellipta (7) HTN (hypertension): Qualifiers: Hypertension type: primary hypertension Qualified Code(s): I10 - Essential (primary) hypertension Code(s): I10 - Essential (primary) hypertension Status: Acute Assessment and Plan: Metoprolol 50 q.12 hours (8) Hypercholesterolemia: Code(s): E78.00 - Pure hypercholesterolemia, unspecified Status: Acute Assessment and Plan: Continue rosuvastatin 20 mg daily (9) Afib: Code(s): I48.91 - Unspecified atrial fibrillation Status: Acute Assessment and Plan: Sinus rhythm on ECG in ED -Continue apixaban and metoprolol Plan Patient with AMS change suspect 2/2 recurrent UTI with ESBL and there a concern patient may have pneumonia and being treated with meropenem, patient is still quite confused and unable to provider any ROS or history, patient with hematuria most likely 2/2 UTI, and concern patient dark stool to further evaluate will do stool hemoccult, however patient hgb is table, once patient UTI symptoms improve his mental status will improve, and further recommendation to follow, will monitor. Diet: Heart healthy diet GI prophylaxis: Pantoprazole 40 daily DVT prophylaxis: Apixaban lines/drains: Peripheral IV, indwelling Segundo catheter Fluids: No fluids in the ED Code status: Full Subjective Date/time seen: 08/12/25 17:17 Interval history: Altered mental status H&P-Narrative: 89-year-old male past medical history BPH, prostate cancer, GERD, lung cancer s/p radiation, CAD s/p CABG x5 in 2015, HTN, COPD, diastolic dysfunction with chronic failure presented to the ED on 08/10/2025 from [facility] with altered mental status and weakness noticed by staff. Unable to obtain further history due to patient's mental status being A&O x1 to self. Patient was recently admitted at [facility] from 07/30/2025 to 08/03/2025 with pneumonia and UTI with sepsis and bacteremia. During that admission, blood cultures grew ESBL. Patient was subsequently discharged with IV ertapenem through midline in the left arm to complete 7 day course. Patient was to then start cephalexin for UTI prophylaxis after ertapenem course. Midline in left arm infiltrated and was switched to the right arm at the rehab facility. Patient with AMS change suspect 2/2 recurrent UTI with ESBL and there a concern patient may have pneumonia and being treated with meropenem, patient is still quite confused and unable to provider any ROS or history, patient with hematuria most likely 2/2 UTI, and concern patient dark stool to further evaluate will do stool hemoccult, however patient hgb is table, once patient UTI symptoms improve his mental status will improve, and further recommendation to follow, will monitor. Review of Systems Review of Systems: ROS unobtainable: Yes unobtainable due to mental status (A&Ox1) Exam Narrative: Elderly frail Patient is comfortable, NAD HEENT: eyes are clear and none icteric LUNGS:CTA HEART: RR S1S2 ABD: BS+, Soft and nontender Lower extremities: no edema SKIN: nonjaundiced Neuro: grossly intact. Objective Data Vital Signs Vital Signs: Vital Signs - 24 hr 08/11/25 20:00 08/11/25 20:00 08/11/25 20:00 Temperature 36.8 C Pulse Rate 86 86 88 Respiratory Rate 18 18 Blood Pressure 139/93 H Pulse Oximetry 93 93 Oxygen Delivery Room Air 08/11/25 21:17 08/12/25 00:00 08/12/25 04:00 Temperature Pulse Rate 86 77 96 Respiratory Rate Blood Pressure Pulse Oximetry Oxygen Delivery 08/12/25 05:40 08/12/25 08:01 08/12/25 12:06 Temperature 36.0 C L Pulse Rate 97 94 86 Respiratory Rate 18 Blood Pressure Pulse Oximetry 94 Oxygen Delivery 08/12/25 16:00 Temperature Pulse Rate 67 Respiratory Rate 18 Blood Pressure 127/88 Pulse Oximetry 93 Oxygen Delivery Intake/Output Intake/Output: Intake & Output 08/09/25 08/10/25 08/11/25 08/12/25 23:59 23:59 23:59 23:59 Intake Total 100 910 730 Output Total 1400 675 Balance 100 -490 55 Meds/Results Medications: Active Medications Generic Name Dose Route Start Last Admin Trade Name Freq PRN Reason Stop Dose Admin Acetaminophen 650 mg 08/11/25 00:22 Acetaminophen 325 Mg Tablet PO Q6H PRN Mild Pain (1-3) or Fever Albuterol 2 puff 08/10/25 21:20 Albuterol Sulfate (*Sp) Aerosol 1 Puff INHALATION Q4HRT PRN Shortness Of Breath Or Wheezin Albuterol/Ipratropium 3 ml 08/11/25 00:09 Ipratropium 0.5 Mg/Albuterol Sulfate 2.5 Mg (Base) Ampul.Neb 3 Ml INHALATION Q6HRT PRN Shortness of breath and wheezi Allopurinol 100 mg 08/11/25 09:00 08/11/25 09:19 Allopurinol 100 Mg Tablet PO 100 mg DAILY NIGEL Administration Apixaban 5 mg 08/11/25 09:00 08/12/25 09:45 Apixaban 5 Mg Tablet PO Not Given Q12HR NIGEL Aspirin 81 mg 08/11/25 09:00 08/12/25 09:45 Aspirin 81 Mg Enteric Tablet PO Not Given DAILY NIGEL Benzocaine 1 lozenge 08/10/25 23:18 08/11/25 00:12 Benzocaine/Menthol (*Bkc) 18 Ea Lozenge PO 1 lozenge PRN PRN Administration Sore Throat Benzonatate 100 mg 08/11/25 09:00 08/12/25 12:08 Benzonatate 100 Mg Capsule PO 100 mg TID NIGEL Administration Cephalexin HCl 250 mg 08/11/25 21:00 08/11/25 21:17 Cephalexin 250 Mg Capsule PO 250 mg On Hold: 08/12/25 09:00 HS NIGEL Administration Fluticasone/Umeclidinium/Vilanterol 1 puff 08/11/25 08:00 08/12/25 08:16 Fluticasone/Umeclidin/Vilanter 200-62.5-25 Mcg Ellipta INHALATION [facility] Furosemide 40 mg 08/11/25 09:00 08/12/25 12:06 Furosemide 40 Mg Tablet PO 40 mg QAM NIGEL Administration Gabapentin 100 mg 08/11/25 09:00 08/12/25 12:06 Gabapentin 100 Mg Capsule PO 100 mg BID NIGEL Administration Guaifenesin 600 mg 08/11/25 09:00 08/12/25 12:07 Guaifenesin 12 Hr 600 Mg Tabcr PO 600 mg Q12HR NIGEL Administration Meropenem 1 gm/ Sodium 100 mls @ 200 mls/hr 08/10/25 18:00 08/12/25 06:09 Chloride IVPB Infused Q12H NIGEL Infusion Loratadine 10 mg 08/11/25 09:00 08/11/25 09:19 Loratadine 10 Mg Tablet PO 10 mg QAM NIGEL Administration Metoprolol Tartrate 50 mg 08/11/25 09:00 08/12/25 12:06 Metoprolol Tartrate 50 Mg Tab PO 50 mg Q12HR NIGEL Administration Multivitamins/Minerals 1 tablet 08/11/25 09:00 08/11/25 09:18 Opti-Gen Tab PO 1 tablet DAILY NIGEL Administration Pantoprazole Sodium 40 mg 08/11/25 09:00 08/11/25 09:19 Pantoprazole 40 Mg Tablet PO 40 mg QAM NIGEL Administration Polyethylene Glycol 17 gm 08/11/25 09:00 08/11/25 09:21 Polyethylene Glycol 3350 17 Gm Powd.Pack PO 17 gm QAM NIGEL Administration Potassium Chloride 10 meq 08/11/25 09:00 08/12/25 12:07 Potassium Chloride 10 Meq Er Tablet PO 10 meq BID NIGEL Administration Prochlorperazine Maleate 10 mg 08/10/25 21:20 Prochlorperazine Maleate 5 Mg Tablet PO Q8H PRN Nausea Rosuvastatin Calcium 20 mg 08/11/25 09:00 08/11/25 09:19 Rosuvastatin 20 Mg Tablet PO 20 mg DAILY NIGEL Administration Sacubitril/Valsartan 2 tab 08/11/25 09:00 08/12/25 12:07 Sacubitril/Valsartan 24-26 Mg Tablet PO 2 tab Q12HR NIGEL Administration Senna/Docusate Sodium 2 tab 08/11/25 09:00 08/12/25 11:33 Senna/Docusate Sodium Tablet PO Not Given BID [facility] Tamsulosin HCl 0.4 mg 08/11/25 09:00 08/11/25 09:19 Tamsulosin Hcl 0.4 Mg Capsule PO 0.4 mg DAILY NIGEL Administration Tramadol HCl 25 mg 08/10/25 21:20 Tramadol Hcl (*Crx) 25 Mg Tablet PO Q6H PRN Pain Rated 6 or Greater Radiology Results: ITS Impressions Chest X-Ray 08/10/25 15:12 IMPRESSION: 1. Small bilateral pleural effusions with associated bibasilar atelectasis and/or pneumonia. Head CT 08/10/25 16:05 Impression: 1.No acute intracranial abnormality. Chest/Abdomen/Pelvis CT 08/10/25 17:25 IMPRESSION: 1. Small focus of right lower lobe bronchopneumonia superimposed on chronic lung disease. 2. No acute intra-abdominal process. 3. Thickened appendix, correlate for symptoms of chronic appendicitis. The differential includes an appendiceal lesion, adnexal neoplasm is not excluded. Surgical consultation suggested. 4. Left renal lesion incompletely evaluated. Contrast-enhanced CT or MRI is recommended Labs Labs: Laboratory Results - last 24 hr 08/12/25 08/12/25 05:36 06:22 WBC 9.7 RBC 4.02 L Hgb 12.0 L Hct 38.2 L MCV 95.0 MCH 29.9 MCHC 31.4 L RDW 12.9 Plt Count 303 MPV 10.2 Sodium 139 Potassium 4.5 Chloride 104 Carbon Dioxide 29 Anion Gap 6 BUN 43 H D Creatinine 1.17 Estim Creat Clear Calc 42 Estimated GFR 59 Glucose 135 H Calcium 9.9 Magnesium 2.3 Quality VTE Prophylaxis VTE prophylaxis: pharmacologic ordered
[2025-08-12] MEDS: TAMSULOSIN HCL 0.4 MG CAPSULE PO (17:32)
[2025-08-12] MEDS: OPTI-GEN TAB 1 TABLET PO (17:32)
[2025-08-12] MEDS: SENNA/DOCUSATE SODIUM TABLET 2 TAB PO (17:32)
[2025-08-12] MEDS: PANTOPRAZOLE 40 MG TABLET PO (17:32)
[2025-08-12] MEDS: LORATADINE 10 MG TABLET PO (17:32)
[2025-08-12] MEDS: ROSUVASTATIN 20 MG TABLET PO (17:32)
[2025-08-12] MEDS: APIXABAN 5 MG TABLET PO (21:42)
[2025-08-13] VITALS (11 sets, daily range): BP systolic 121–142; BP diastolic 56–91; PULSE 65–90; RESP 18–20; TEMP 36.6–37.1; O2SAT 90–96
[2025-08-13] MEDS: MEROPENEM 1 GM in SODIUM CHLORIDE 0.9% IV 100 ML 200 ML IVPB ×2 (05:48→17:45)
[2025-08-13 07:39] LABS: Hematocrit 37.2 % (42.0-52.0); Hemoglobin 11.9 g/dL (14.0-18.0); Mean Corpuscular HGB Conc 32.0 g/dl (32-36); Mean Corpuscular Hemoglobin 30.1 pg (26-34); Mean Corpuscular Volume 93.9 fl (80-100); Platelet Count Result 322 k/mm3 (150-375); Red Blood Count 3.96 M/mm3 (4.6-6.20); White Blood Count 8.6 K/mm3 (4.5-10.0)
--- NOTE | 2025-08-13 07:54 | PM.IMPN ---
Progress Note: A&P Assessment and Plan (1) Pneumonia: Qualifiers: Laterality: bilateral Lung location: unspecified part of lung Pneumonia type: due to unspecified organism Qualified Code(s): J18.9 - Pneumonia, unspecified organism Code(s): J18.9 - Pneumonia, unspecified organism Status: Acute Assessment and Plan: Recently discharged with pneumonia. Blood cultures grew ESBL during last admission. Did not meet SIRS criteria, however blood cultures drawn which remains negative. Chest x-ray reveals small bilateral pleural effusions and with associated bibasilar atelectasis and/or pneumonia. CT chest abdomen pelvis reveals small focus of right lower lobe bronchopneumonia superimposed on chronic lung disease. WBC 10.5. -restarted meropenem 1 g q.12 on 08/10 -daily CBC with normalization of white cell count -DuoNebs p.r.n. -Tylenol p.r.n. -Mucinex 600 Q 12 -lozenge PRN Repeat CT 08/10/2025 with small focus of right lower lobe bronchopneumonia superimposed on chronic lung disease. No acute intra-abdominal process. Thickened appendix correlate for symptoms of chronic appendicitis. Left renal lesion incompletely evaluated contrast enhanced CT or MRI recommended (2) UTI (urinary tract infection): Code(s): N39.0 - Urinary tract infection, site not specified Status: Acute Assessment and Plan: UA concerning for UTI with 3+ blood, 3+ leukocyte esterase, rbc's > 100, WBC 21-50. Urine culture grew Klebsiella pneumoniae on 07/30 with multiple resistances, see report -culture showed Klebsiella previously susceptible to meropenem, started on 08/11 in the ED -hold cephalexin 250 mg HS until meropenem course completed -currently complicated by history of intermittent straight catheterization, Segundo placed in the ED on 08/10 Urine culture on admission not obtained (3) Diastolic dysfunction with chronic heart failure: Code(s): I50.32 - Chronic diastolic (congestive) heart failure Status: Chronic Assessment and Plan: -Continue Entresto 2 tabs Q 12 -continue furosemide 40 mg daily -potassium chloride 10 mEq p.o. b.i.d. (4) GERD (gastroesophageal reflux disease): Qualifiers: Esophagitis presence: esophagitis presence not specified Qualified Code(s): K21.9 - Gastro-esophageal reflux disease without esophagitis Code(s): K21.9 - Gastro-esophageal reflux disease without esophagitis Status: Acute Assessment and Plan: Continue daily pantoprazole 40 mg (5) BPH (benign prostatic hyperplasia): Qualifiers: Lower urinary tract symptom presence: symptoms present Lower urinary tract symptom detail: urinary retention Qualified Code(s): N40.1 - Benign prostatic hyperplasia with lower urinary tract symptoms; R33.8 - Other retention of urine Code(s): N40.0 - Benign prostatic hyperplasia without lower urinary tract symptoms Status: Acute Assessment and Plan: History of intermittent straight cath after prostate cancer. Currently has indwelling Segundo catheter in place due to retention and noted in the emergency department on 08/10. -Continue tamsulosin 0.4 daily (6) COPD (chronic obstructive pulmonary disease): Qualifiers: COPD type: unspecified COPD Qualified Code(s): J44.9 - Chronic obstructive pulmonary disease, unspecified Code(s): J44.9 - Chronic obstructive pulmonary disease, unspecified Status: Chronic Assessment and Plan: Not in acute exacerbation -DuDulcebs p.r.n. -continue Trelegy Ellipta (7) HTN (hypertension): Qualifiers: Hypertension type: primary hypertension Qualified Code(s): I10 - Essential (primary) hypertension Code(s): I10 - Essential (primary) hypertension Status: Acute Assessment and Plan: Metoprolol 50 q.12 hours (8) Hypercholesterolemia: Code(s): E78.00 - Pure hypercholesterolemia, unspecified Status: Acute Assessment and Plan: Continue rosuvastatin 20 mg daily (9) Afib: Code(s): I48.91 - Unspecified atrial fibrillation Status: Acute Assessment and Plan: Sinus rhythm on ECG in ED -Continue apixaban and metoprolol Plan 89-year-old male past medical history BPH, prostate cancer, GERD, lung cancer s/p radiation, CAD s/p CABG x5 in 2014, HTN, COPD, diastolic dysfunction with chronic failure presented to the ED on 08/10/2025 from [facility] with altered mental status and weakness noticed by staff. Unable to obtain further history due to patient's mental status being A&O x1 to self. Patient was recently admitted at [facility] from 07/30/2025 to 08/03/2025 with pneumonia and UTI with sepsis and bacteremia with ESBL Klebsiella which was treated with meropenem switched to ertapenem. Patient was to then start cephalexin for UTI prophylaxis after ertapenem course. Patient's midline left arm infiltrated with edema which has been removed. Switched to picc on right arm at the rehab facility. Mild HAROLDO on presentation with creatinine of 21.8 improving now. Altered mental status CT head negative likely due HAROLDO UTI/pneumonia Diet: Heart healthy diet GI prophylaxis: Pantoprazole 40 daily DVT prophylaxis: Apixaban lines/drains: Peripheral IV, indwelling Segundo catheter Fluids: No fluids in the ED Code status: Full Subjective Date/time seen: 08/13/25 07:54 Interval history: No overnight events. He has been more coherent since last night. No more further hallucinations reported. Son at bedside and discussed with him. Coughing some. Denies any shortness of breath or chest pain. Review of Systems Review of Systems: All systems reviewed & are unremarkable except as noted in HPI and below Exam Narrative: Elderly frail not in acute distress Patient is comfortable, NAD HEENT: eyes are clear and none icteric LUNGS:CTA HEART: RR S1S2 ABD: BS+, Soft and nontender Lower extremities: no edema SKIN: nonjaundiced Neuro: grossly intact. Alert and oriented x3 Objective Data Vital Signs Vital Signs: Vital Signs - 24 hr 08/12/25 08:01 08/12/25 12:05 08/12/25 12:06 Temperature Pulse Rate 94 86 86 Respiratory Rate Blood Pressure Pulse Oximetry Oxygen Delivery 08/12/25 16:00 08/12/25 16:01 08/12/25 20:00 Temperature Pulse Rate 67 68 73 Respiratory Rate 18 16 Blood Pressure 127/88 Pulse Oximetry 93 97 Oxygen Delivery Room Air 08/12/25 20:00 08/12/25 21:41 08/12/25 21:42 Temperature 97.8 F Pulse Rate 76 73 73 Respiratory Rate 16 Blood Pressure 130/45 L Pulse Oximetry 97 Oxygen Delivery 08/13/25 00:00 08/13/25 04:00 08/13/25 05:47 Temperature 97.9 F Pulse Rate 65 77 84 Respiratory Rate 18 Blood Pressure 137/65 Pulse Oximetry 94 Oxygen Delivery Intake/Output Intake/Output: Intake & Output 08/10/25 08/11/25 08/12/25 08/13/25 23:59 23:59 23:59 23:59 Intake Total 100 910 830 350 Output Total 0882 4755 350 Balance 100 -992 -7547 0 Meds/Results Medications: Active Medications Generic Name Dose Route Start Last Admin Trade Name Freq PRN Reason Stop Dose Admin Acetaminophen 650 mg 08/11/25 00:22 Acetaminophen 325 Mg Tablet PO Q6H PRN Mild Pain (1-3) or Fever Albuterol 2 puff 08/10/25 21:20 Albuterol Sulfate (*Sp) Aerosol 1 Puff INHALATION Q4HRT PRN Shortness Of Breath Or Wheezin Albuterol/Ipratropium 3 ml 08/11/25 00:09 Ipratropium 0.5 Mg/Albuterol Sulfate 2.5 Mg (Base) Ampul.Neb 3 Ml INHALATION Q6HRT PRN Shortness of breath and wheezi Allopurinol 100 mg 08/11/25 09:00 08/12/25 17:32 Allopurinol 100 Mg Tablet PO 100 mg DAILY NIGEL Administration Apixaban 5 mg 08/11/25 09:00 08/12/25 21:42 Apixaban 5 Mg Tablet PO 5 mg Q12HR NIGEL Administration Aspirin 81 mg 08/11/25 09:00 08/12/25 09:45 Aspirin 81 Mg Enteric Tablet PO Not Given DAILY NIGEL Benzocaine 1 lozenge 08/10/25 23:18 08/11/25 00:12 Benzocaine/Menthol (*Bkc) 18 Ea Lozenge PO 1 lozenge PRN PRN Administration Sore Throat Benzonatate 100 mg 08/11/25 09:00 08/12/25 17:32 Benzonatate 100 Mg Capsule PO 100 mg TID NIGEL Administration Cephalexin HCl 250 mg 08/11/25 21:00 08/11/25 21:17 Cephalexin 250 Mg Capsule PO 250 mg On Hold: 08/12/25 09:00 HS NIGEL Administration Fluticasone/Umeclidinium/Vilanterol 1 puff 08/11/25 08:00 08/12/25 08:16 Fluticasone/Umeclidin/Vilanter 200-62.5-25 Mcg Ellipta INHALATION Not Given DAILYRT NIGEL Furosemide 40 mg 08/11/25 09:00 08/12/25 12:06 Furosemide 40 Mg Tablet PO 40 mg QAM NIGEL Administration Gabapentin 100 mg 08/11/25 09:00 08/12/25 17:32 Gabapentin 100 Mg Capsule PO 100 mg BID NIGEL Administration Guaifenesin 600 mg 08/11/25 09:00 08/12/25 21:42 Guaifenesin 12 Hr 600 Mg Tabcr PO 600 mg Q12HR NIGEL Administration Meropenem 1 gm/ Sodium 100 mls @ 200 mls/hr 08/10/25 18:00 08/13/25 06:18 Chloride IVPB Infused Q12H NIGEL Infusion Loratadine 10 mg 08/11/25 09:00 08/12/25 17:32 Loratadine 10 Mg Tablet PO 10 mg QAM NIGEL Administration Metoprolol Tartrate 50 mg 08/11/25 09:00 08/12/25 21:42 Metoprolol Tartrate 50 Mg Tab PO 50 mg Q12HR NIGEL Administration Multivitamins/Minerals 1 tablet 08/11/25 09:00 08/12/25 17:32 Opti-Gen Tab PO 1 tablet DAILY NIGEL Administration Pantoprazole Sodium 40 mg 08/11/25 09:00 08/12/25 17:32 Pantoprazole 40 Mg Tablet PO 40 mg QAM NIGEL Administration Polyethylene Glycol 17 gm 08/11/25 09:00 08/12/25 17:32 Polyethylene Glycol 3350 17 Gm Powd.Pack PO 17 gm QAM NIGEL Administration Potassium Chloride 10 meq 08/11/25 09:00 08/12/25 17:32 Potassium Chloride 10 Meq Er Tablet PO 10 meq BID NIGEL Administration Prochlorperazine Maleate 10 mg 08/10/25 21:20 Prochlorperazine Maleate 5 Mg Tablet PO Q8H PRN Nausea Rosuvastatin Calcium 20 mg 08/11/25 09:00 08/12/25 17:32 Rosuvastatin 20 Mg Tablet PO 20 mg DAILY NIGEL Administration Sacubitril/Valsartan 2 tab 08/11/25 09:00 08/12/25 21:42 Sacubitril/Valsartan 24-26 Mg Tablet PO 2 tab Q12HR NIGEL Administration Senna/Docusate Sodium 2 tab 08/11/25 09:00 08/12/25 17:32 Senna/Docusate Sodium Tablet PO 2 tab BID NIGEL Administration Tamsulosin HCl 0.4 mg 08/11/25 09:00 08/12/25 17:32 Tamsulosin Hcl 0.4 Mg Capsule PO 0.4 mg DAILY NIGEL Administration Tramadol HCl 25 mg 08/10/25 21:20 Tramadol Hcl (*Crx) 25 Mg Tablet PO Q6H PRN Pain Rated 6 or Greater Radiology Results: ITS Impressions Chest X-Ray 08/10/25 15:12 IMPRESSION: 1. Small bilateral pleural effusions with associated bibasilar atelectasis and/or pneumonia. Head CT 08/10/25 16:05 Impression: 1.No acute intracranial abnormality. Chest/Abdomen/Pelvis CT 08/10/25 17:25 IMPRESSION: 1. Small focus of right lower lobe bronchopneumonia superimposed on chronic lung disease. 2. No acute intra-abdominal process. 3. Thickened appendix, correlate for symptoms of chronic appendicitis. The differential includes an appendiceal lesion, adnexal neoplasm is not excluded. Surgical consultation suggested. 4. Left renal lesion incompletely evaluated. Contrast-enhanced CT or MRI is recommended Labs Labs: Laboratory Results - last 24 hr 08/13/25 06:57 WBC 8.6 RBC 3.96 L Hgb 11.9 L Hct 37.2 L MCV 93.9 MCH 30.1 MCHC 32.0 RDW 13.0 Plt Count 322 MPV 10.0
[2025-08-13 08:00] LABS: Anion Gap 4 mmol/L (4-12); Blood Urea Nitrogen 43 mg/dL (9-20); Calcium 10.0 mg/dL (8.4-10.2); Carbon Dioxide 30 mmol/L (22-30); Chloride 105 mmol/L (98-107); Estimated CRCL calculation 40 ml/min; Estimated Glomerular Filt Rate 55; Glucose 118 mg/dL (65-110); Magnesium 2.3 mg/dL (1.6-2.3); Potassium 4.7 mmol/L (3.4-5.0); Sodium 139 mmol/L (137-145)
[2025-08-13] MEDS: FLUTICASONE/UMECLIDIN/VILANTER 200-62.5-25 MCG ELLIPTA 1 PUFF INHALATION (08:27)
[2025-08-13] MEDS: PANTOPRAZOLE 40 MG TABLET PO (10:21)
[2025-08-13] MEDS: SENNA/DOCUSATE SODIUM TABLET 2 TAB PO ×2 (10:21→17:45)
[2025-08-13] MEDS: TAMSULOSIN HCL 0.4 MG CAPSULE PO (10:21)
[2025-08-13] MEDS: METOPROLOL TARTRATE 50 MG TAB PO ×2 (10:21→21:05)
[2025-08-13] MEDS: POTASSIUM CHLORIDE 10 MEQ ER TABLET PO ×2 (10:21→17:45)
[2025-08-13] MEDS: FUROSEMIDE 40 MG TABLET PO (10:21)
[2025-08-13] MEDS: SACUBITRIL/VALSARTAN 24-26 MG TABLET 2 TAB PO ×2 (10:21→21:06)
[2025-08-13] MEDS: guaiFENesin 12 HR 600 MG TABCR PO ×2 (10:22→21:05)
[2025-08-13] MEDS: LORATADINE 10 MG TABLET PO (10:22)
[2025-08-13] MEDS: OPTI-GEN TAB 1 TABLET PO (10:22)
[2025-08-13] MEDS: BENZONATATE 100 MG CAPSULE PO ×3 (10:22→17:45)
[2025-08-13] MEDS: ROSUVASTATIN 20 MG TABLET PO (10:22)
[2025-08-13] MEDS: ASPIRIN 81 MG ENTERIC TABLET PO (10:22)
[2025-08-13] MEDS: APIXABAN 5 MG TABLET PO (10:22)
[2025-08-13] MEDS: GABAPENTIN 100 MG CAPSULE PO ×2 (10:22→17:45)
--- NOTE | 2025-08-13 13:43 | PC.NURSE ---
RN called MD Cooley to ask what the plans are for patient moving forward and update MD on patient findings.
--- NOTE | 2025-08-13 14:01 | PC.NURSE ---
MD Cooley updated by RN. asked to hold Eliquis.
--- NOTE | 2025-08-13 16:45 | PC.NURSE ---
RN changed patient's code status after POA requested. Second RN confirmed and MD Cooley notified.
[2025-08-14] VITALS (12 sets, daily range): BP systolic 109–138; BP diastolic 41–80; PULSE 66–86; RESP 16–20; TEMP 36.2–36.7; O2SAT 90–95
[2025-08-14] MEDS: MEROPENEM 1 GM in SODIUM CHLORIDE 0.9% IV 100 ML 200 ML IVPB ×2 (05:12→18:30)
[2025-08-14 06:20] LABS: Hematocrit 36.0 % (42.0-52.0); Hemoglobin 11.1 g/dL (14.0-18.0); Immature Granulocyte Percent A 0.6 % (0-0.5); Lymphocytes Absolute Auto 2.00 K/mm3 (0.9-3.2); Mean Corpuscular HGB Conc 30.8 g/dl (32-36); Mean Corpuscular Hemoglobin 29.9 pg (26-34); Mean Corpuscular Volume 97.0 fl (80-100); Nucleated Red Blood Cells Absolute Auto 0.000 K/mm3 (0.0-0.012); Nucleated Red Blood Cells Perc 0.0 % (0.0-0.2); Platelet Count Result 311 k/mm3 (150-375); Red Blood Count 3.71 M/mm3 (4.6-6.20); White Blood Count 8.1 K/mm3 (4.5-10.0)
[2025-08-14 06:41] LABS: IFOB Positive Control Positive; Immunochemical Fecal Occult Bl Positive (N)
[2025-08-14 06:54] LABS: Alanine Aminotransferase 39 U/L (6-50); Albumin Level 2.9 g/dL (3.5-5.1); Alkaline Phosphatase 87 U/L (38-126); Anion Gap 7 mmol/L (4-12); Aspartate Amino Transferase 46 U/L (17-59); Bilirubin,Total 0.5 mg/dL (0.2-1.3); Blood Urea Nitrogen 58 mg/dL (9-20); Calcium 9.3 mg/dL (8.4-10.2); Carbon Dioxide 26 mmol/L (22-30); Chloride 104 mmol/L (98-107); Estimated CRCL calculation 41 ml/min; Estimated Glomerular Filt Rate 57; Glucose 117 mg/dL (65-110); Magnesium 2.5 mg/dL (1.6-2.3); Potassium 4.3 mmol/L (3.4-5.0); Sodium 137 mmol/L (137-145); Total Protein 6.1 g/dL (6.3-8.2)
[2025-08-14] MEDS: FLUTICASONE/UMECLIDIN/VILANTER 200-62.5-25 MCG ELLIPTA 1 PUFF INHALATION (08:17)
[2025-08-14] MEDS: GABAPENTIN 100 MG CAPSULE PO ×2 (09:20→16:18)
[2025-08-14] MEDS: ROSUVASTATIN 20 MG TABLET PO (09:20)
[2025-08-14] MEDS: FUROSEMIDE 40 MG TABLET PO (09:20)
[2025-08-14] MEDS: SENNA/DOCUSATE SODIUM TABLET 2 TAB PO ×2 (09:21→16:18)
[2025-08-14] MEDS: SACUBITRIL/VALSARTAN 24-26 MG TABLET 2 TAB PO ×2 (09:21→20:44)
[2025-08-14] MEDS: LORATADINE 10 MG TABLET PO (09:21)
[2025-08-14] MEDS: guaiFENesin 12 HR 600 MG TABCR PO ×2 (09:21→20:44)
[2025-08-14] MEDS: OPTI-GEN TAB 1 TABLET PO (09:21)
[2025-08-14] MEDS: TAMSULOSIN HCL 0.4 MG CAPSULE PO (09:21)
[2025-08-14] MEDS: POTASSIUM CHLORIDE 10 MEQ ER TABLET PO ×2 (09:21→16:18)
[2025-08-14] MEDS: BENZONATATE 100 MG CAPSULE PO ×2 (09:21→16:18)
[2025-08-14] MEDS: METOPROLOL TARTRATE 50 MG TAB PO ×2 (09:21→20:44)
[2025-08-14] MEDS: PANTOPRAZOLE 40 MG TABLET PO (09:21)
--- NOTE | 2025-08-14 14:09 | PM.IMPN ---
Progress Note: A&P Assessment and Plan (1) Pneumonia: Qualifiers: Laterality: bilateral Lung location: unspecified part of lung Pneumonia type: due to unspecified organism Qualified Code(s): J18.9 - Pneumonia, unspecified organism Code(s): J18.9 - Pneumonia, unspecified organism Status: Acute Assessment and Plan: Recently discharged with pneumonia. Blood cultures grew ESBL during last admission. Did not meet SIRS criteria, however blood cultures drawn which remains negative. Chest x-ray reveals small bilateral pleural effusions and with associated bibasilar atelectasis and/or pneumonia. CT chest abdomen pelvis reveals small focus of right lower lobe bronchopneumonia superimposed on chronic lung disease. WBC 10.5. -restarted meropenem 1 g q.12 on 08/10 -daily CBC with normalization of white cell count -DuoNebs p.r.n. -Tylenol p.r.n. -Mucinex 600 Q 12 -lozenge PRN Repeat CT 08/10/2025 with small focus of right lower lobe bronchopneumonia superimposed on chronic lung disease. No acute intra-abdominal process. Thickened appendix correlate for symptoms of chronic appendicitis. Left renal lesion incompletely evaluated contrast enhanced CT or MRI recommended (2) UTI (urinary tract infection): Code(s): N39.0 - Urinary tract infection, site not specified Status: Acute Assessment and Plan: UA concerning for UTI with 3+ blood, 3+ leukocyte esterase, rbc's > 100, WBC 21-50. Urine culture grew Klebsiella pneumoniae on 07/30 with multiple resistances, see report -culture showed Klebsiella previously susceptible to meropenem, started on 08/11 in the ED -Continue cephalexin 250 mg -Due to hematuria, his discharge cancelled. He has been monitored. No hematuria and eliquis resumed today. (3) Diastolic dysfunction with chronic heart failure: Code(s): I50.32 - Chronic diastolic (congestive) heart failure Status: Chronic Assessment and Plan: -Continue Entresto 2 tabs Q 12 -continue furosemide 40 mg daily -potassium chloride 10 mEq p.o. b.i.d. (4) GERD (gastroesophageal reflux disease): Qualifiers: Esophagitis presence: esophagitis presence not specified Qualified Code(s): K21.9 - Gastro-esophageal reflux disease without esophagitis Code(s): K21.9 - Gastro-esophageal reflux disease without esophagitis Status: Acute Assessment and Plan: Continue daily pantoprazole 40 mg (5) BPH (benign prostatic hyperplasia): Qualifiers: Lower urinary tract symptom presence: symptoms present Lower urinary tract symptom detail: urinary retention Qualified Code(s): N40.1 - Benign prostatic hyperplasia with lower urinary tract symptoms; R33.8 - Other retention of urine Code(s): N40.0 - Benign prostatic hyperplasia without lower urinary tract symptoms Status: Acute Assessment and Plan: History of intermittent straight cath after prostate cancer. Currently has indwelling Segundo catheter in place due to retention and noted in the emergency department on 08/10. -Continue tamsulosin 0.4 daily (6) COPD (chronic obstructive pulmonary disease): Qualifiers: COPD type: unspecified COPD Qualified Code(s): J44.9 - Chronic obstructive pulmonary disease, unspecified Code(s): J44.9 - Chronic obstructive pulmonary disease, unspecified Status: Chronic Assessment and Plan: Not in acute exacerbation -DuMitchell p.r.n. -continue Trelegy Ellipta (7) HTN (hypertension): Qualifiers: Hypertension type: primary hypertension Qualified Code(s): I10 - Essential (primary) hypertension Code(s): I10 - Essential (primary) hypertension Status: Acute Assessment and Plan: Metoprolol 50 q.12 hours (8) Hypercholesterolemia: Code(s): E78.00 - Pure hypercholesterolemia, unspecified Status: Acute Assessment and Plan: Continue rosuvastatin 20 mg daily (9) Afib: Code(s): I48.91 - Unspecified atrial fibrillation Status: Acute Assessment and Plan: Sinus rhythm on ECG in ED -Continue apixaban and metoprolol Time Spent With Patient Time: 40 minutes Subjective Date/time seen: 08/14/25 14:09 Interval history: 89-year-old male past medical history BPH, prostate cancer, GERD, lung cancer s/p radiation, CAD s/p CABG x5 in 2014, HTN, COPD, diastolic dysfunction with chronic failure presented to the ED on 08/10/2025 from [facility] with altered mental status and weakness noticed by staff. 08/14 Denies hematuria. No complaints. Restart his Eliquis. CBC in the morning and Plan to discharge him tomorrow. Review of Systems Review of Systems: All systems reviewed & are unremarkable except as noted in HPI and below Exam Narrative: APPEARANCE: No acute distress, obese EYES: EOMI HEENT: Normocephalic, atraumatic, OMM RESPIRATORY: No respiratory distress Clear to auscultation bilaterally with no rhonchi wheezing or rales. CARDIOVASCULAR: RRR, S1 and S2 without murmurs rubs or gallops. ABDOMINAL: Soft, nontender, nondistended, no rebound or guarding MSK: Range of motion intact NEURO: Awake and alert. Following commands, speech normal, no focal deficits SKIN:: Warm, dry. No rashes lesions or abrasions PSYCHIATRIC: Normal affect/mood, Objective Data Vital Signs Vital Signs: Vital Signs - 24 hr 08/13/25 16:00 08/13/25 16:00 08/13/25 20:00 Temperature 36.6 C Pulse Rate 82 86 90 Respiratory Rate 20 20 Blood Pressure 142/91 H Pulse Oximetry 96 90 Oxygen Delivery Room Air 08/13/25 20:00 08/13/25 20:34 08/13/25 21:05 Temperature 37.1 C Pulse Rate 90 90 90 Respiratory Rate 20 Blood Pressure 121/56 L Pulse Oximetry 90 Oxygen Delivery 08/14/25 00:00 08/14/25 04:00 08/14/25 05:14 Temperature 36.6 C Pulse Rate 77 81 80 Respiratory Rate 20 Blood Pressure 138/62 Pulse Oximetry 90 Oxygen Delivery 08/14/25 08:00 08/14/25 08:01 08/14/25 08:17 Temperature Pulse Rate 79 Respiratory Rate Blood Pressure Pulse Oximetry 95 Oxygen Delivery Room Air Room Air 08/14/25 09:21 08/14/25 09:33 08/14/25 12:05 Temperature Pulse Rate 86 66 Respiratory Rate Blood Pressure Pulse Oximetry Oxygen Delivery Room Air Intake/Output Intake/Output: Intake & Output 08/11/25 08/12/25 08/13/25 08/14/25 23:59 23:59 23:59 23:59 Intake Total 367 284 0508 550 Output Total 1400 1925 1450 200 Balance -490 -1095 1080 350 Meds/Results Medications: Active Medications Generic Name Dose Route Start Last Admin Trade Name Freq PRN Reason Stop Dose Admin Acetaminophen 650 mg 08/11/25 00:22 Acetaminophen 325 Mg Tablet PO Q6H PRN Mild Pain (1-3) or Fever Albuterol 2 puff 08/10/25 21:20 Albuterol Sulfate (*Sp) Aerosol 1 Puff INHALATION Q4HRT PRN Shortness Of Breath Or Wheezin Albuterol/Ipratropium 3 ml 08/11/25 00:09 Ipratropium 0.5 Mg/Albuterol Sulfate 2.5 Mg (Base) Ampul.Neb 3 Ml INHALATION Q6HRT PRN Shortness of breath and wheezi Allopurinol 100 mg 08/11/25 09:00 08/14/25 09:21 Allopurinol 100 Mg Tablet PO 100 mg DAILY NIGEL Administration Apixaban 5 mg 08/11/25 09:00 08/13/25 10:22 Apixaban 5 Mg Tablet PO 5 mg On Hold: 08/13/25 14:02 Q12HR NIGEL Administration Aspirin 81 mg 08/11/25 09:00 08/14/25 09:27 Aspirin 81 Mg Enteric Tablet PO Not Given DAILY NIGEL Benzocaine 1 lozenge 08/10/25 23:18 08/11/25 00:12 Benzocaine/Menthol (*Bkc) 18 Ea Lozenge PO 1 lozenge PRN PRN Administration Sore Throat Benzonatate 100 mg 08/11/25 09:00 08/14/25 09:21 Benzonatate 100 Mg Capsule PO 100 mg TID NIGEL Administration Cephalexin HCl 250 mg 08/11/25 21:00 08/11/25 21:17 Cephalexin 250 Mg Capsule PO 250 mg On Hold: 08/12/25 09:00 HS NIGEL Administration Fluticasone/Umeclidinium/Vilanterol 1 puff 08/11/25 08:00 08/14/25 08:17 Fluticasone/Umeclidin/Vilanter 200-62.5-25 Mcg Ellipta INHALATION 1 puff DAILYRT NIGEL Administration Furosemide 40 mg 08/11/25 09:00 08/14/25 09:20 Furosemide 40 Mg Tablet PO 40 mg QAM NIGEL Administration Gabapentin 100 mg 08/11/25 09:00 08/14/25 09:20 Gabapentin 100 Mg Capsule PO 100 mg BID NIGEL Administration Guaifenesin 600 mg 08/11/25 09:00 08/14/25 09:21 Guaifenesin 12 Hr 600 Mg Tabcr PO 600 mg Q12HR NIGEL Administration Meropenem 1 gm/ Sodium 100 mls @ 200 mls/hr 08/10/25 18:00 08/14/25 05:42 Chloride IVPB 08/16/25 23:59 Infused Q12H NIGEL Infusion Loratadine 10 mg 08/11/25 09:00 08/14/25 09:21 Loratadine 10 Mg Tablet PO 10 mg QAM NIGEL Administration Metoprolol Tartrate 50 mg 08/11/25 09:00 08/14/25 09:21 Metoprolol Tartrate 50 Mg Tab PO 50 mg Q12HR NIGEL Administration Multivitamins/Minerals 1 tablet 08/11/25 09:00 08/14/25 09:21 Opti-Gen Tab PO 1 tablet DAILY NIGEL Administration Pantoprazole Sodium 40 mg 08/11/25 09:00 08/14/25 09:21 Pantoprazole 40 Mg Tablet PO 40 mg QAM NIGEL Administration Polyethylene Glycol 17 gm 08/11/25 09:00 08/14/25 09:20 Polyethylene Glycol 3350 17 Gm Powd.Pack PO 17 gm QAM NIGEL Administration Potassium Chloride 10 meq 08/11/25 09:00 08/14/25 09:21 Potassium Chloride 10 Meq Er Tablet PO 10 meq BID NIGEL Administration Prochlorperazine Maleate 10 mg 08/10/25 21:20 Prochlorperazine Maleate 5 Mg Tablet PO Q8H PRN Nausea Rosuvastatin Calcium 20 mg 08/11/25 09:00 08/14/25 09:20 Rosuvastatin 20 Mg Tablet PO 20 mg DAILY NIGEL Administration Sacubitril/Valsartan 2 tab 08/11/25 09:00 08/14/25 09:21 Sacubitril/Valsartan 24-26 Mg Tablet PO 2 tab Q12HR NIGEL Administration Senna/Docusate Sodium 2 tab 08/11/25 09:00 08/14/25 09:21 Senna/Docusate Sodium Tablet PO 2 tab BID NIGEL Administration Tamsulosin HCl 0.4 mg 08/11/25 09:00 08/14/25 09:21 Tamsulosin Hcl 0.4 Mg Capsule PO 0.4 mg DAILY NIGEL Administration Tramadol HCl 25 mg 08/10/25 21:20 Tramadol Hcl (*Crx) 25 Mg Tablet PO Q6H PRN Pain Rated 6 or Greater Radiology Results: ITS Impressions Chest X-Ray 08/10/25 15:12 IMPRESSION: 1. Small bilateral pleural effusions with associated bibasilar atelectasis and/or pneumonia. Head CT 08/10/25 16:05 Impression: 1.No acute intracranial abnormality. Chest/Abdomen/Pelvis CT 08/10/25 17:25 IMPRESSION: 1. Small focus of right lower lobe bronchopneumonia superimposed on chronic lung disease. 2. No acute intra-abdominal process. 3. Thickened appendix, correlate for symptoms of chronic appendicitis. The differential includes an appendiceal lesion, adnexal neoplasm is not excluded. Surgical consultation suggested. 4. Left renal lesion incompletely evaluated. Contrast-enhanced CT or MRI is recommended Labs Labs: Laboratory Results - last 24 hr 08/14/25 08/14/25 05:19 06:03 WBC 8.1 RBC 3.71 L Hgb 11.1 L Hct 36.0 L MCV 97.0 MCH 29.9 MCHC 30.8 L RDW 13.2 Plt Count 311 MPV 10.1 Immature Gran % (Auto) 0.6 H Neut % (Auto) 58.4 Lymph % (Auto) 24.6 [place] % (Auto) 10.1 H Eos % (Auto) 5.4 H Baso % (Auto) 0.9 Lymph # (Auto) 2.00 [place] # (Auto) 0.8 H Eos # (Auto) 0.4 H Baso # (Auto) 0.1 Abs Immat Gran (auto) 0.05 H Absolute Neuts (auto) 4.8 Absolute Nucleated RBC 0.000 Nucleated RBC % 0.0 Sodium 137 Potassium 4.3 Chloride 104 Carbon Dioxide 26 Anion Gap 7 BUN 58 H D Creatinine 1.20 Estim Creat Clear Calc 41 Estimated GFR 57 L Glucose 117 H Calcium 9.3 Magnesium 2.5 H Total Bilirubin 0.5 AST 46 ALT 39 Alkaline Phosphatase 87 Total Protein 6.1 L Albumin 2.9 L Stl Occult Blood (IFOB) Positive H Quality VTE Prophylaxis VTE prophylaxis: pharmacologic ordered
[2025-08-14] MEDS: APIXABAN 5 MG TABLET PO (20:44)
[2025-08-15] VITALS (7 sets, daily range): BP systolic 117–138; BP diastolic 54–56; PULSE 66–88; RESP 22–26; TEMP 36.1–36.3; O2SAT 92–94
[2025-08-15] MEDS: MEROPENEM 1 GM in SODIUM CHLORIDE 0.9% IV 100 ML 200 ML IVPB ×2 (05:01→17:03)
[2025-08-15 07:09] LABS: Hematocrit 35.2 % (42.0-52.0); Hemoglobin 11.3 g/dL (14.0-18.0); Mean Corpuscular HGB Conc 32.1 g/dl (32-36); Mean Corpuscular Hemoglobin 30.1 pg (26-34); Mean Corpuscular Volume 93.9 fl (80-100); Platelet Count Result 316 k/mm3 (150-375); Red Blood Count 3.75 M/mm3 (4.6-6.20); White Blood Count 8.4 K/mm3 (4.5-10.0)
[2025-08-15 07:16] LABS: Anion Gap 6 mmol/L (4-12); Blood Urea Nitrogen 63 mg/dL (9-20); Calcium 9.5 mg/dL (8.4-10.2); Carbon Dioxide 28 mmol/L (22-30); Chloride 103 mmol/L (98-107); Estimated CRCL calculation 38 ml/min; Estimated Glomerular Filt Rate 51; Glucose 147 mg/dL (65-110); Magnesium 2.4 mg/dL (1.6-2.3); Potassium 4.2 mmol/L (3.4-5.0); Sodium 137 mmol/L (137-145)
[2025-08-15] MEDS: FLUTICASONE/UMECLIDIN/VILANTER 200-62.5-25 MCG ELLIPTA 1 PUFF INHALATION (08:22)
--- NOTE | 2025-08-15 09:46 | PC.NURSE ---
RN attempted to pass medications. Patient's family requested RN come back at a different time as the patient is sleeping.
[2025-08-15] MEDS: SENNA/DOCUSATE SODIUM TABLET 2 TAB PO ×2 (10:25→17:04)
[2025-08-15] MEDS: SACUBITRIL/VALSARTAN 24-26 MG TABLET 2 TAB PO ×2 (10:26→20:49)
[2025-08-15] MEDS: ASPIRIN 81 MG ENTERIC TABLET PO (10:26)
[2025-08-15] MEDS: METOPROLOL TARTRATE 50 MG TAB PO ×2 (10:26→20:48)
[2025-08-15] MEDS: APIXABAN 5 MG TABLET PO ×2 (10:26→20:48)
[2025-08-15] MEDS: OPTI-GEN TAB 1 TABLET PO (10:26)
[2025-08-15] MEDS: FUROSEMIDE 40 MG TABLET PO (10:27)
[2025-08-15] MEDS: PANTOPRAZOLE 40 MG TABLET PO (10:27)
[2025-08-15] MEDS: LORATADINE 10 MG TABLET PO (10:27)
[2025-08-15] MEDS: TAMSULOSIN HCL 0.4 MG CAPSULE PO (10:27)
[2025-08-15] MEDS: POTASSIUM CHLORIDE 10 MEQ ER TABLET PO ×2 (10:27→17:04)
[2025-08-15] MEDS: BENZONATATE 100 MG CAPSULE PO ×2 (10:27→17:04)
[2025-08-15] MEDS: guaiFENesin 12 HR 600 MG TABCR PO ×2 (10:27→20:48)
[2025-08-15] MEDS: ROSUVASTATIN 20 MG TABLET PO (10:28)
[2025-08-15] MEDS: GABAPENTIN 100 MG CAPSULE PO ×2 (10:28→17:04)
--- NOTE | 2025-08-15 13:50 | P.PNIM_ITS ---
Progress Note: A&P Assessment and Plan (1) Pneumonia: Qualifiers: Laterality: bilateral Lung location: unspecified part of lung Pneumonia type: due to unspecified organism Qualified Code(s): J18.9 - Pneumonia, unspecified organism Code(s): J18.9 - Pneumonia, unspecified organism Status: Acute Assessment and Plan: Recently discharged with pneumonia. Blood cultures grew ESBL during last admission. Did not meet SIRS criteria, however blood cultures drawn which remains negative. Chest x-ray reveals small bilateral pleural effusions and with associated bibasilar atelectasis and/or pneumonia. CT chest abdomen pelvis reveals small focus of right lower lobe bronchopneumonia superimposed on chronic lung disease. WBC 10.5. -restarted meropenem 1 g q.12 on 08/10 -daily CBC with normalization of white cell count -DuoNebs p.r.n. -Tylenol p.r.n. -Mucinex 600 Q 12 -lozenge PRN Repeat CT 08/10/2025 with small focus of right lower lobe bronchopneumonia superimposed on chronic lung disease. No acute intra-abdominal process. Thickened appendix correlate for symptoms of chronic appendicitis. Left renal lesion incompletely evaluated contrast enhanced CT or MRI recommended (2) UTI (urinary tract infection): Code(s): N39.0 - Urinary tract infection, site not specified Status: Acute Assessment and Plan: UA concerning for UTI with 3+ blood, 3+ leukocyte esterase, rbc's > 100, WBC 21- 50. Urine culture grew Klebsiella pneumoniae on 07/30 with multiple resistances, see report -culture showed Klebsiella previously susceptible to meropenem, started on 08/11 in the ED -Continue cephalexin 250 mg -Due to hematuria, his discharge delayed. No hematuria and eliquis resumed 08/14. Hemoglobin remains stable. (3) Diastolic dysfunction with chronic heart failure: Code(s): I50.32 - Chronic diastolic (congestive) heart failure Status: Chronic Assessment and Plan: -Continue Entresto 2 tabs Q 12 -continue furosemide 40 mg daily -potassium chloride 10 mEq p.o. b.i.d. (4) GERD (gastroesophageal reflux disease): Qualifiers: Esophagitis presence: esophagitis presence not specified Qualified Code(s): K21.9 - Gastro-esophageal reflux disease without esophagitis Code(s): K21.9 - Gastro-esophageal reflux disease without esophagitis Status: Acute Assessment and Plan: Continue daily pantoprazole 40 mg (5) BPH (benign prostatic hyperplasia): Qualifiers: Lower urinary tract symptom presence: symptoms present Lower urinary tract symptom detail: urinary retention Qualified Code(s): N40.1 - Benign prostatic hyperplasia with lower urinary tract symptoms; R33.8 - Other retention of urine Code(s): N40.0 - Benign prostatic hyperplasia without lower urinary tract symptoms Status: Acute Assessment and Plan: History of intermittent straight cath after prostate cancer. Currently has indwelling Segundo catheter in place due to retention and noted in the emergency department on 08/10. -Continue tamsulosin 0.4 daily (6) COPD (chronic obstructive pulmonary disease): Qualifiers: COPD type: unspecified COPD Qualified Code(s): J44.9 - Chronic obstructive pulmonary disease, unspecified Code(s): J44.9 - Chronic obstructive pulmonary disease, unspecified Status: Chronic Assessment and Plan: Not in acute exacerbation -Kirk p.r.n. -continue Trelegy Ellipta (7) HTN (hypertension): Qualifiers: Hypertension type: primary hypertension Qualified Code(s): I10 - Essential (primary) hypertension Code(s): I10 - Essential (primary) hypertension Status: Acute Assessment and Plan: Metoprolol 50 q.12 hours (8) Hypercholesterolemia: Code(s): E78.00 - Pure hypercholesterolemia, unspecified Status: Acute Assessment and Plan: Continue rosuvastatin 20 mg daily (9) Afib: Code(s): I48.91 - Unspecified atrial fibrillation Status: Acute Assessment and Plan: Sinus rhythm on ECG in ED -Continue apixaban and metoprolol Plan Stayed overnight because he developed delirium If his mentation is better, okay to discharge him to [facility] Time Spent With Patient Time: 50 minutes Subjective Date/time seen: 08/15/25 13:50 Interval history: 89-year-old male past medical history BPH, prostate cancer, GERD, lung cancer s/p radiation, CAD s/p CABG x5 in 2014, HTN, COPD, diastolic dysfunction with chronic failure presented to the ED on 08/10/2025 from [facility] with altered mental status and weakness noticed by staff. 08/15 Restarted his Eliquis yesterday, hemoglobin remains stable and no gross hematuria. However his mentation changes and [facility] did not picking table worker the phone to accept him, he stayed overnight. Okay to discharge to [facility] Review of Systems Review of Systems: All systems reviewed & are unremarkable except as noted in HPI and below Exam Narrative: APPEARANCE: No acute distress, obese EYES: EOMI HEENT: Normocephalic, atraumatic, OMM RESPIRATORY: No respiratory distress Clear to auscultation bilaterally with no rhonchi wheezing or rales. CARDIOVASCULAR: RRR, S1 and S2 without murmurs rubs or gallops. ABDOMINAL: Soft, nontender, nondistended, no rebound or guarding MSK: Range of motion intact NEURO: Lethargic today SKIN:: Warm, dry. No rashes lesions or abrasions PSYCHIATRIC: Talk gibberish Objective Data Vital Signs Vital Signs: Vital Signs - 24 hr 08/14/25 14:58 08/14/25 20:00 08/14/25 20:44 Temperature 36.2 C L Pulse Rate 72 73 76 Respiratory Rate 18 Blood Pressure 125/80 Pulse Oximetry 93 Oxygen Delivery 08/14/25 21:31 08/14/25 22:37 08/15/25 00:00 Temperature 36.7 C Pulse Rate 73 66 Respiratory Rate 16 Blood Pressure 109/41 L Pulse Oximetry 91 91 Oxygen Delivery Room Air 08/15/25 08:00 08/15/25 08:00 08/15/25 08:00 Temperature 36.1 C L Pulse Rate 81 84 Respiratory Rate 26 H Blood Pressure 138/54 L Pulse Oximetry 93 Oxygen Delivery Room Air 08/15/25 08:22 08/15/25 10:26 08/15/25 12:00 Temperature Pulse Rate 87 75 Respiratory Rate Blood Pressure Pulse Oximetry 94 Oxygen Delivery Room Air Intake/Output Intake/Output: Intake & Output 08/12/25 08/13/25 08/14/25 08/15/25 23:59 23:59 23:59 23:59 Intake Total 830 1430 1145 368 Output Total 9625 9760 600 600 Balance -1095 1080 545 -232 Meds/Results Medications: Active Medications Generic Name Dose Route Start Last Admin Trade Name Freq PRN Reason Stop Dose Admin Acetaminophen 650 mg 08/11/25 00:22 Acetaminophen 325 Mg Tablet PO Q6H PRN Mild Pain (1-3) or Fever Albuterol 2 puff 08/10/25 21:20 Albuterol Sulfate (*Sp) Aerosol 1 Puff INHALATION Q4HRT PRN Shortness Of Breath Or Wheezin Albuterol/Ipratropium 3 ml 08/11/25 00:09 Ipratropium 0.5 Mg/Albuterol Sulfate 2.5 Mg (Base) Ampul.Neb 3 Ml INHALATION Q6HRT PRN Shortness of breath and wheezi Allopurinol 100 mg 08/11/25 09:00 08/15/25 10:27 Allopurinol 100 Mg Tablet PO 100 mg DAILY NIGEL Administration Apixaban 5 mg 08/11/25 09:00 08/15/25 10:26 Apixaban 5 Mg Tablet PO 5 mg Q12HR NIGEL Administration Aspirin 81 mg 08/11/25 09:00 08/15/25 10:26 Aspirin 81 Mg Enteric Tablet PO 81 mg DAILY NIGEL Administration Benzocaine 1 lozenge 08/10/25 23:18 08/11/25 00:12 Benzocaine/Menthol (*Bkc) 18 Ea Lozenge PO 1 lozenge PRN PRN Administration Sore Throat Benzonatate 100 mg 08/11/25 09:00 08/15/25 13:31 Benzonatate 100 Mg Capsule PO Not Given TID NIGEL Cephalexin HCl 250 mg 08/11/25 21:00 08/11/25 21:17 Cephalexin 250 Mg Capsule PO 250 mg On Hold: 08/12/25 09:00 HS NIGEL Administration Fluticasone/Umeclidinium/Vilanterol 1 puff 08/11/25 08:00 08/15/25 08:22 Fluticasone/Umeclidin/Vilanter 200-62.5-25 Mcg Ellipta INHALATION 1 puff DAILYRT NIGEL Administration Furosemide 40 mg 08/11/25 09:00 08/15/25 10:27 Furosemide 40 Mg Tablet PO 40 mg QAM NIGEL Administration Gabapentin 100 mg 08/11/25 09:00 08/15/25 10:28 Gabapentin 100 Mg Capsule PO 100 mg BID NIGEL Administration Guaifenesin 600 mg 08/11/25 09:00 08/15/25 10:27 Guaifenesin 12 Hr 600 Mg Tabcr PO 600 mg Q12HR NIGEL Administration Meropenem 1 gm/ Sodium 100 mls @ 200 mls/hr 08/10/25 18:00 08/15/25 05:01 Chloride IVPB 08/16/25 23:59 200 mls/hr Q12H NIGEL Administration Loratadine 10 mg 08/11/25 09:00 08/15/25 10:27 Loratadine 10 Mg Tablet PO 10 mg QAM NIGEL Administration Metoprolol Tartrate 50 mg 08/11/25 09:00 08/15/25 10:26 Metoprolol Tartrate 50 Mg Tab PO 50 mg Q12HR NIGEL Administration Multivitamins/Minerals 1 tablet 08/11/25 09:00 08/15/25 10:26 Opti-Gen Tab PO 1 tablet DAILY NIGEL Administration Pantoprazole Sodium 40 mg 08/11/25 09:00 08/15/25 10:27 Pantoprazole 40 Mg Tablet PO 40 mg QAM NIGEL Administration Polyethylene Glycol 17 gm 08/11/25 09:00 08/15/25 10:27 Polyethylene Glycol 3350 17 Gm Powd.Pack PO Not Given QAM [facility] Potassium Chloride 10 meq 08/11/25 09:00 08/15/25 10:27 Potassium Chloride 10 Meq Er Tablet PO 10 meq BID NIGEL Administration Prochlorperazine Maleate 10 mg 08/10/25 21:20 Prochlorperazine Maleate 5 Mg Tablet PO Q8H PRN Nausea Rosuvastatin Calcium 20 mg 08/11/25 09:00 08/15/25 10:28 Rosuvastatin 20 Mg Tablet PO 20 mg DAILY NIGEL Administration Sacubitril/Valsartan 2 tab 08/11/25 09:00 08/15/25 10:26 Sacubitril/Valsartan 24-26 Mg Tablet PO 2 tab Q12HR NIGEL Administration Senna/Docusate Sodium 2 tab 08/11/25 09:00 08/15/25 10:25 Senna/Docusate Sodium Tablet PO 2 tab BID NIGEL Administration Tamsulosin HCl 0.4 mg 08/11/25 09:00 08/15/25 10:27 Tamsulosin Hcl 0.4 Mg Capsule PO 0.4 mg DAILY NIGEL Administration Tramadol HCl 25 mg 08/10/25 21:20 Tramadol Hcl (*Crx) 25 Mg Tablet PO Q6H PRN Pain Rated 6 or Greater Radiology Results: ITS Impressions Chest X-Ray 08/10/25 15:12 IMPRESSION: 1. Small bilateral pleural effusions with associated bibasilar atelectasis and/or pneumonia. Head CT 08/10/25 16:05 Impression: 1.No acute intracranial abnormality. Chest/Abdomen/Pelvis CT 08/10/25 17:25 IMPRESSION: 1. Small focus of right lower lobe bronchopneumonia superimposed on chronic lung disease. 2. No acute intra-abdominal process. 3. Thickened appendix, correlate for symptoms of chronic appendicitis. The differential includes an appendiceal lesion, adnexal neoplasm is not excluded. Surgical consultation suggested. 4. Left renal lesion incompletely evaluated. Contrast-enhanced CT or MRI is recommended Labs Labs: Laboratory Results - last 24 hr 08/15/25 06:55 WBC 8.4 RBC 3.75 L Hgb 11.3 L Hct 35.2 L MCV 93.9 MCH 30.1 MCHC 32.1 RDW 13.1 Plt Count 316 MPV 10.1 Sodium 137 Potassium 4.2 Chloride 103 Carbon Dioxide 28 Anion Gap 6 BUN 63 H Creatinine 1.32 H Estim Creat Clear Calc 38 Estimated GFR 51 L Glucose 147 H Calcium 9.5 Magnesium 2.4 H Quality VTE Prophylaxis VTE prophylaxis: pharmacologic ordered
[2025-08-16] VITALS (9 sets, daily range): BP systolic 102–180; BP diastolic 51–89; PULSE 67–88; RESP 16–18; TEMP 35.8–36.5; O2SAT 92–96
[2025-08-16] MEDS: MEROPENEM 1 GM in SODIUM CHLORIDE 0.9% IV 100 ML 200 ML IVPB ×2 (05:08→17:53)
--- NOTE | 2025-08-16 09:19 | PC.NURSE ---
Patient front desk monitor was removed by patient, patient is sleeping and family request staff to not wake patient up to reapply tele.
--- NOTE | 2025-08-16 09:37 | PCRCNOTE ---
RT attempted to give patient his morning inhaler. Patient was asleep and woke up a small amount for RT. RT was getting ready to administer med when the family member asked RT to not give him the inhaler due to patient getting no sleep last night and when he wakes he gets very confused and agitated. RT attempted a second time an hour later and family still refused due to patient sleeping.
[2025-08-16 09:56] LABS: Hematocrit 38.2 % (42.0-52.0); Hemoglobin 11.9 g/dL (14.0-18.0); Mean Corpuscular HGB Conc 31.2 g/dl (32-36); Mean Corpuscular Hemoglobin 29.8 pg (26-34); Mean Corpuscular Volume 95.5 fl (80-100); Platelet Count Result 341 k/mm3 (150-375); Red Blood Count 4.00 M/mm3 (4.6-6.20); White Blood Count 8.8 K/mm3 (4.5-10.0)
[2025-08-16] MEDS: METOPROLOL TARTRATE 50 MG TAB PO ×2 (10:23→20:16)
[2025-08-16] MEDS: POTASSIUM CHLORIDE 10 MEQ ER TABLET PO (10:23)
[2025-08-16] MEDS: APIXABAN 5 MG TABLET PO ×2 (10:23→20:18)
[2025-08-16] MEDS: TAMSULOSIN HCL 0.4 MG CAPSULE PO (10:23)
[2025-08-16] MEDS: OPTI-GEN TAB 1 TABLET PO (10:23)
[2025-08-16] MEDS: LORATADINE 10 MG TABLET PO (10:24)
[2025-08-16] MEDS: SENNA/DOCUSATE SODIUM TABLET 2 TAB PO (10:25)
[2025-08-16] MEDS: BENZONATATE 100 MG CAPSULE PO (10:25)
[2025-08-16] MEDS: FUROSEMIDE 40 MG TABLET PO (10:25)
[2025-08-16 10:36] LABS: Anion Gap 3 mmol/L (4-12); Blood Urea Nitrogen 56 mg/dL (9-20); Calcium 10.1 mg/dL (8.4-10.2); Carbon Dioxide 33 mmol/L (22-30); Chloride 103 mmol/L (98-107); Estimated CRCL calculation 41 ml/min; Estimated Glomerular Filt Rate 58; Glucose 115 mg/dL (65-110); Magnesium 2.7 mg/dL (1.6-2.3); Potassium 4.7 mmol/L (3.4-5.0); Sodium 139 mmol/L (137-145)
[2025-08-16] MEDS: SACUBITRIL/VALSARTAN 24-26 MG TABLET 2 TAB PO ×2 (10:50→20:17)
[2025-08-16] MEDS: guaiFENesin 12 HR 600 MG TABCR PO ×2 (10:50→20:17)
[2025-08-16] MEDS: GABAPENTIN 100 MG CAPSULE PO (10:50)
[2025-08-16] MEDS: ASPIRIN 81 MG ENTERIC TABLET PO (10:50)
[2025-08-16] MEDS: ROSUVASTATIN 20 MG TABLET PO (10:50)
[2025-08-16] MEDS: PANTOPRAZOLE 40 MG TABLET PO (10:51)
--- NOTE | 2025-08-16 12:12 | PCOTNOTE ---
Attempted, Patient very difficulty to arouse, Per Patient's , he will not be able to participate, he has been up all night, not eating, and hallucinating. RN aware
--- NOTE | 2025-08-16 13:27 | PCPTNOTE ---
Attempted to see patient for PT, however patient's refused therapy. Patient sound asleep upon entering room, patient's in room and reported patient has been up all night and asked to let patient sleep at this time.
--- NOTE | 2025-08-16 14:20 | PM.IMPN ---
Progress Note: A&P Assessment and Plan (1) Pneumonia: Qualifiers: Laterality: bilateral Lung location: unspecified part of lung Pneumonia type: due to unspecified organism Qualified Code(s): J18.9 - Pneumonia, unspecified organism Code(s): J18.9 - Pneumonia, unspecified organism Status: Acute Assessment and Plan: Recently discharged with pneumonia. Blood cultures grew ESBL during last admission. Did not meet SIRS criteria, however blood cultures drawn which remains negative. Chest x-ray reveals small bilateral pleural effusions and with associated bibasilar atelectasis and/or pneumonia. CT chest abdomen pelvis reveals small focus of right lower lobe bronchopneumonia superimposed on chronic lung disease. WBC 10.5. -Repeat CT 08/10/2025 with small focus of right lower lobe bronchopneumonia superimposed on chronic lung disease. No acute intra-abdominal process. Thickened appendix correlate for symptoms of chronic appendicitis. Left renal lesion incompletely evaluated contrast enhanced CT or MRI recommended -restarted meropenem 1 g q.12 on 08/10, last does this evening 08/16 -daily CBC with normalization of white cell count -DuoNebs p.r.n. -Tylenol p.r.n. -Mucinex 600 Q 12 -lozenge PRN -BC no growth at 48 hours. (2) UTI (urinary tract infection): Code(s): N39.0 - Urinary tract infection, site not specified Status: Acute Assessment and Plan: UA concerning for UTI with 3+ blood, 3+ leukocyte esterase, rbc's > 100, WBC 21-50. Urine culture grew Klebsiella pneumoniae on 07/30 with multiple resistances, see report -culture showed Klebsiella previously susceptible to meropenem, started on 08/11 in the ED -cephalexin 250 mg held -Due to hematuria, his discharge delayed. No hematuria and eliquis resumed 08/14. Hemoglobin remains stable. -Blood culture no growth at 48 hours (3) Diastolic dysfunction with chronic heart failure: Code(s): I50.32 - Chronic diastolic (congestive) heart failure Status: Chronic Assessment and Plan: -Continue Entresto 2 tabs Q 12 -continue furosemide 40 mg daily -potassium chloride 10 mEq p.o. b.i.d. (4) GERD (gastroesophageal reflux disease): Qualifiers: Esophagitis presence: esophagitis presence not specified Qualified Code(s): K21.9 - Gastro-esophageal reflux disease without esophagitis Code(s): K21.9 - Gastro-esophageal reflux disease without esophagitis Status: Acute Assessment and Plan: Continue daily pantoprazole 40 mg (5) BPH (benign prostatic hyperplasia): Qualifiers: Lower urinary tract symptom presence: symptoms present Lower urinary tract symptom detail: urinary retention Qualified Code(s): N40.1 - Benign prostatic hyperplasia with lower urinary tract symptoms; R33.8 - Other retention of urine Code(s): N40.0 - Benign prostatic hyperplasia without lower urinary tract symptoms Status: Acute Assessment and Plan: History of intermittent straight cath after prostate cancer. Currently has indwelling Segundo catheter in place due to retention and noted in the emergency department on 08/10. -Continue tamsulosin 0.4 daily (6) COPD (chronic obstructive pulmonary disease): Qualifiers: COPD type: unspecified COPD Qualified Code(s): J44.9 - Chronic obstructive pulmonary disease, unspecified Code(s): J44.9 - Chronic obstructive pulmonary disease, unspecified Status: Chronic Assessment and Plan: Not in acute exacerbation -DuoNebs p.r.n. -continue Trelegy Ellipta (7) HTN (hypertension): Qualifiers: Hypertension type: primary hypertension Qualified Code(s): I10 - Essential (primary) hypertension Code(s): I10 - Essential (primary) hypertension Status: Acute Assessment and Plan: Metoprolol 50 q.12 hours (8) Hypercholesterolemia: Code(s): E78.00 - Pure hypercholesterolemia, unspecified Status: Acute Assessment and Plan: Continue rosuvastatin 20 mg daily (9) Afib: Code(s): I48.91 - Unspecified atrial fibrillation Status: Acute Assessment and Plan: Sinus rhythm on ECG in ED -Continue apixaban and metoprolol Plan Stayed overnight because he developed delirium If his mentation is better, okay to discharge him to [facility] Subjective Date/time seen: 08/16/25 14:20 Interval history: 89-year-old male past medical history BPH, prostate cancer, GERD, lung cancer s/p radiation, CAD s/p CABG x5 in 2014, HTN, COPD, diastolic dysfunction with chronic failure presented to the ED on 08/10/2025 from [facility] with altered mental status and weakness noticed by staff. 08/16 [facility] was contacted today. They cannot accept patient until tomorrow. Try to get patient discharged today but they would not take him back. He has completed antibiotic therapy. Exam Narrative: GENERAL: Comfortable, no acute distress RESPIRATORY: clear to auscultation, no increased respiratory effort CARDIO: Regular rate and rhythm GI: soft, nontender, bowel sounds present SKIN/EXTREMITIES: no rashes, no redness or tenderness, mild lower extremity edema Objective Data Vital Signs Vital Signs: Vital Signs - 24 hr 08/15/25 16:00 08/15/25 16:00 08/15/25 20:00 Temperature 97.4 F L Pulse Rate 77 77 Respiratory Rate 22 H Blood Pressure 117/56 L Pulse Oximetry 92 Oxygen Delivery Room Air 08/15/25 20:00 08/16/25 00:00 08/16/25 00:00 Temperature 97.7 F Pulse Rate 88 88 82 Respiratory Rate 18 Blood Pressure 120/51 L Pulse Oximetry 92 Oxygen Delivery 08/16/25 04:00 08/16/25 06:13 08/16/25 10:23 Temperature 97.3 F L Pulse Rate 83 85 85 Respiratory Rate 18 Blood Pressure 125/60 Pulse Oximetry 93 Oxygen Delivery Intake/Output Intake/Output: Intake & Output 08/13/25 08/14/25 08/15/25 08/16/25 23:59 23:59 23:59 23:59 Intake Total 2530 1145 905 Output Total 5356 253 1911 1400 Balance [facility] [phone] Meds/Results Medications: Active Medications Generic Name Dose Route Start Last Admin Trade Name Freq PRN Reason Stop Dose Admin Acetaminophen 650 mg 08/11/25 00:22 Acetaminophen 325 Mg Tablet PO Q6H PRN Mild Pain (1-3) or Fever Albuterol 2 puff 08/10/25 21:20 Albuterol Sulfate (*Sp) Aerosol 1 Puff INHALATION Q4HRT PRN Shortness Of Breath Or Wheezin Albuterol/Ipratropium 3 ml 08/11/25 00:09 Ipratropium 0.5 Mg/Albuterol Sulfate 2.5 Mg (Base) Ampul.Neb 3 Ml INHALATION Q6HRT PRN Shortness of breath and wheezi Allopurinol 100 mg 08/11/25 09:00 08/16/25 10:25 Allopurinol 100 Mg Tablet PO 100 mg DAILY NIGEL Administration Apixaban 5 mg 08/11/25 09:00 08/16/25 10:23 Apixaban 5 Mg Tablet PO 5 mg Q12HR NIGEL Administration Aspirin 81 mg 08/11/25 09:00 08/16/25 10:50 Aspirin 81 Mg Enteric Tablet PO 81 mg DAILY NIGEL Administration Benzocaine 1 lozenge 08/10/25 23:18 08/11/25 00:12 Benzocaine/Menthol (*Bkc) 18 Ea Lozenge PO 1 lozenge PRN PRN Administration Sore Throat Benzonatate 100 mg 08/11/25 09:00 08/16/25 10:25 Benzonatate 100 Mg Capsule PO 100 mg TID NIGEL Administration Cephalexin HCl 250 mg 08/11/25 21:00 08/11/25 21:17 Cephalexin 250 Mg Capsule PO 250 mg On Hold: 08/12/25 09:00 HS NIGEL Administration Fluticasone/Umeclidinium/Vilanterol 1 puff 08/11/25 08:00 08/16/25 09:37 Fluticasone/Umeclidin/Vilanter 200-62.5-25 Mcg Ellipta INHALATION Not Given DAILYRT INGEL Furosemide 40 mg 08/11/25 09:00 08/16/25 10:25 Furosemide 40 Mg Tablet PO 40 mg QAM NIGEL Administration Gabapentin 100 mg 08/11/25 09:00 08/16/25 10:50 Gabapentin 100 Mg Capsule PO 100 mg BID NIGEL Administration Guaifenesin 600 mg 08/11/25 09:00 08/16/25 10:50 Guaifenesin 12 Hr 600 Mg Tabcr PO 600 mg Q12HR NIGEL Administration Meropenem 1 gm/ Sodium 100 mls @ 200 mls/hr 08/10/25 18:00 08/16/25 05:08 Chloride IVPB 08/16/25 23:59 200 mls/hr Q12H NIGEL Administration Loratadine 10 mg 08/11/25 09:00 08/16/25 10:24 Loratadine 10 Mg Tablet PO 10 mg QAM NIGEL Administration Metoprolol Tartrate 50 mg 08/11/25 09:00 08/16/25 10:23 Metoprolol Tartrate 50 Mg Tab PO 50 mg Q12HR NIGEL Administration Multivitamins/Minerals 1 tablet 08/11/25 09:00 08/16/25 10:23 Opti-Gen Tab PO 1 tablet DAILY NIGEL Administration Pantoprazole Sodium 40 mg 08/11/25 09:00 08/16/25 10:51 Pantoprazole 40 Mg Tablet PO 40 mg QAM NIGEL Administration Polyethylene Glycol 17 gm 08/11/25 09:00 08/16/25 10:52 Polyethylene Glycol 3350 17 Gm Powd.Pack PO Not Given QAM NIGEL Potassium Chloride 10 meq 08/11/25 09:00 08/16/25 10:23 Potassium Chloride 10 Meq Er Tablet PO 10 meq BID NIGEL Administration Prochlorperazine Maleate 10 mg 08/10/25 21:20 Prochlorperazine Maleate 5 Mg Tablet PO Q8H PRN Nausea Rosuvastatin Calcium 20 mg 08/11/25 09:00 08/16/25 10:50 Rosuvastatin 20 Mg Tablet PO 20 mg DAILY NIGEL Administration Sacubitril/Valsartan 2 tab 08/11/25 09:00 08/16/25 10:50 Sacubitril/Valsartan 24-26 Mg Tablet PO 2 tab Q12HR NIGEL Administration Senna/Docusate Sodium 2 tab 08/11/25 09:00 08/16/25 10:25 Senna/Docusate Sodium Tablet PO 2 tab BID NIGEL Administration Tamsulosin HCl 0.4 mg 08/11/25 09:00 08/16/25 10:23 Tamsulosin Hcl 0.4 Mg Capsule PO 0.4 mg DAILY NIGEL Administration Tramadol HCl 25 mg 08/10/25 21:20 Tramadol Hcl (*Crx) 25 Mg Tablet PO Q6H PRN Pain Rated 6 or Greater Radiology Results: ITS Impressions Chest X-Ray 08/10/25 15:12 IMPRESSION: 1. Small bilateral pleural effusions with associated bibasilar atelectasis and/or pneumonia. Head CT 08/10/25 16:05 Impression: 1.No acute intracranial abnormality. Chest/Abdomen/Pelvis CT 08/10/25 17:25 IMPRESSION: 1. Small focus of right lower lobe bronchopneumonia superimposed on chronic lung disease. 2. No acute intra-abdominal process. 3. Thickened appendix, correlate for symptoms of chronic appendicitis. The differential includes an appendiceal lesion, adnexal neoplasm is not excluded. Surgical consultation suggested. 4. Left renal lesion incompletely evaluated. Contrast-enhanced CT or MRI is recommended Labs Labs: Laboratory Results - last 24 hr 08/16/25 09:50 WBC 8.8 RBC 4.00 L Hgb 11.9 L Hct 38.2 L MCV 95.5 MCH 29.8 MCHC 31.2 L RDW 13.0 Plt Count 341 MPV 9.9 Sodium 139 Potassium 4.7 Chloride 103 Carbon Dioxide 33 H Anion Gap 3 L BUN 56 H Creatinine 1.18 Estim Creat Clear Calc 41 Estimated GFR 58 L Glucose 115 H Calcium 10.1 Magnesium 2.7 H
[2025-08-16] MEDS: SALINE LOCK FLUSH 10 ML IV PUSH (21:13)
[2025-08-17] VITALS (13 sets, daily range): BP systolic 83–123; BP diastolic 52–71; PULSE 71–101; RESP 16–24; TEMP 36.2–36.9; O2SAT 93–95
[2025-08-17] MEDS: SALINE LOCK FLUSH 10 ML IV PUSH ×3 (04:59→21:26)
[2025-08-17 06:44] LABS: Anion Gap 7 mmol/L (4-12); Blood Urea Nitrogen 54 mg/dL (9-20); Calcium 9.9 mg/dL (8.4-10.2); Carbon Dioxide 29 mmol/L (22-30); Chloride 103 mmol/L (98-107); Estimated CRCL calculation 44 ml/min; Estimated Glomerular Filt Rate > 60; Glucose 101 mg/dL (65-110); Magnesium 2.5 mg/dL (1.6-2.3); Potassium 4.7 mmol/L (3.4-5.0); Sodium 139 mmol/L (137-145)
[2025-08-17 07:19] LABS: Hematocrit 39.1 % (42.0-52.0); Hemoglobin 12.2 g/dL (14.0-18.0); Mean Corpuscular HGB Conc 31.2 g/dl (32-36); Mean Corpuscular Hemoglobin 29.6 pg (26-34); Mean Corpuscular Volume 94.9 fl (80-100); Platelet Count Result 373 k/mm3 (150-375); Red Blood Count 4.12 M/mm3 (4.6-6.20); White Blood Count 8.6 K/mm3 (4.5-10.0)
[2025-08-17] MEDS: guaiFENesin 12 HR 600 MG TABCR PO ×2 (09:05→20:17)
[2025-08-17] MEDS: GABAPENTIN 100 MG CAPSULE PO ×2 (09:05→17:50)
[2025-08-17] MEDS: ROSUVASTATIN 20 MG TABLET PO (09:05)
[2025-08-17] MEDS: OPTI-GEN TAB 1 TABLET PO (09:06)
[2025-08-17] MEDS: TAMSULOSIN HCL 0.4 MG CAPSULE PO (09:06)
[2025-08-17] MEDS: FUROSEMIDE 40 MG TABLET PO (09:06)
[2025-08-17] MEDS: ASPIRIN 81 MG ENTERIC TABLET PO (09:06)
[2025-08-17] MEDS: APIXABAN 5 MG TABLET PO ×2 (09:06→20:17)
[2025-08-17] MEDS: PANTOPRAZOLE 40 MG TABLET PO (09:06)
[2025-08-17] MEDS: LORATADINE 10 MG TABLET PO (09:06)
[2025-08-17] MEDS: METOPROLOL TARTRATE 50 MG TAB PO ×2 (09:06→20:17)
[2025-08-17] MEDS: BENZONATATE 100 MG CAPSULE PO ×3 (09:06→17:50)
[2025-08-17] MEDS: SENNA/DOCUSATE SODIUM TABLET 2 TAB PO ×2 (09:06→17:50)
[2025-08-17] MEDS: POTASSIUM CHLORIDE 10 MEQ ER TABLET PO ×2 (09:07→17:50)
[2025-08-17] MEDS: SACUBITRIL/VALSARTAN 24-26 MG TABLET 2 TAB PO ×2 (09:07→20:17)
[2025-08-17] MEDS: FLUTICASONE/UMECLIDIN/VILANTER 200-62.5-25 MCG ELLIPTA 1 PUFF INHALATION (09:16)
--- NOTE | 2025-08-17 09:18 | P.PNIM_ITS ---
Progress Note: A&P Assessment and Plan (1) Pneumonia: Qualifiers: Laterality: bilateral Lung location: unspecified part of lung Pneumonia type: due to unspecified organism Qualified Code(s): J18.9 - Pneumonia, unspecified organism Code(s): J18.9 - Pneumonia, unspecified organism Status: Acute Assessment and Plan: Recently discharged with pneumonia. Blood cultures grew ESBL during last admission. Did not meet SIRS criteria, however blood cultures drawn which remains negative. Chest x-ray reveals small bilateral pleural effusions and with associated bibasilar atelectasis and/or pneumonia. CT chest abdomen pelvis reveals small focus of right lower lobe bronchopneumonia superimposed on chronic lung disease. WBC 10.5. -Repeat CT 08/10/2025 with small focus of right lower lobe bronchopneumonia superimposed on chronic lung disease. No acute intra- abdominal process. Thickened appendix correlate for symptoms of chronic appendicitis. Left renal lesion incompletely evaluated contrast enhanced CT or MRI recommended -restarted meropenem 1 g q.12 on 08/10, completed course -daily CBC with normalization of white cell count -DuoNebs p.r.n. -Tylenol p.r.n. -Mucinex 600 Q 12 -lozenge PRN -BC no growth at 48 hours. (2) UTI (urinary tract infection): Code(s): N39.0 - Urinary tract infection, site not specified Status: Acute Assessment and Plan: UA concerning for UTI with 3+ blood, 3+ leukocyte esterase, rbc's > 100, WBC 21- 50. Urine culture grew Klebsiella pneumoniae on 07/30 with multiple resistances, see report -culture showed Klebsiella previously susceptible to meropenem, started on 08/11 in the ED -cephalexin 250 mg held -Due to hematuria, his discharge delayed. No hematuria and eliquis resumed 08/14. Hemoglobin remains stable. Hematuria return. Will ask Urology to see. -Blood culture no growth at 48 hours (3) Diastolic dysfunction with chronic heart failure: Code(s): I50.32 - Chronic diastolic (congestive) heart failure Status: Chronic Assessment and Plan: -Continue Entresto 2 tabs Q 12 -continue furosemide 40 mg daily -potassium chloride 10 mEq p.o. b.i.d. (4) GERD (gastroesophageal reflux disease): Qualifiers: Esophagitis presence: esophagitis presence not specified Qualified Cod e(s): K21.9 - Gastro-esophageal reflux disease without esophagitis Code(s): K21.9 - Gastro-esophageal reflux disease without esophagitis Status: Acute Assessment and Plan: Continue daily pantoprazole 40 mg (5) BPH (benign prostatic hyperplasia): Qualifiers: Lower urinary tract symptom detail: urinary retention Lower urinary tract symptom presence: symptoms present Qualified Code(s): N40.1 - Benign prostatic hyperplasia with lower urinary tract symptoms; R33.8 - Other retention of urine Code(s): N40.0 - Benign prostatic hyperplasia without lower urinary tract symptoms Status: Acute Assessment and Plan: History of intermittent straight cath after prostate cancer. Currently has indwelling Segundo catheter in place due to retention and noted in the emergency department on 08/10. -Continue tamsulosin 0.4 daily (6) COPD (chronic obstructive pulmonary disease): Qualifiers: COPD type: unspecified COPD Qualified Code(s): J44.9 - Chronic obstructive pulmonary disease, unspecified Code(s): J44.9 - Chronic obstructive pulmonary disease, unspecified Status: Chronic Assessment and Plan: Not in acute exacerbation -DuoNebs p.r.n. -continue Trelegy Ellipta (7) HTN (hypertension): Qualifiers: Hypertension type: primary hypertension Qualified Code(s): I10 - Essential (primary) hypertension Code(s): I10 - Essential (primary) hypertension Status: Acute Assessment and Plan: Metoprolol 50 q.12 hours (8) Hypercholesterolemia: Code(s): E78.00 - Pure hypercholesterolemia, unspecified Status: Acute Assessment and Plan: Continue rosuvastatin 20 mg daily (9) Afib: Code(s): I48.91 - Unspecified atrial fibrillation Status: Acute Assessment and Plan: Sinus rhythm on ECG in ED -Continue apixaban and metoprolol Subjective Date/time seen: 08/17/25 09:18 Interval history: Patient more more alert today. Hematuria has returned. Family at bedside. Review of Systems Review of Systems: All systems reviewed & are unremarkable except as noted in HPI and below Exam Narrative: GENERAL: Comfortable, no acute distress RESPIRATORY: clear to auscultation, no increased respiratory effort CARDIO: Regular rate and rhythm GI: soft, nontender, bowel sounds present SKIN/EXTREMITIES: no rashes, no redness or tenderness, trace edema Segundo catheter with bloody urine in bag Objective Data Vital Signs Vital Signs: Vital Signs - 24 hr 08/16/25 10:23 08/16/25 12:00 08/16/25 16:00 Temperature 96.5 F L Pulse Rate 85 70 71 Respiratory Rate 18 Blood Pressure 102/89 Pulse Oximetry 96 08/16/25 16:00 08/16/25 20:05 08/16/25 20:16 Temperature Pulse Rate 67 77 77 Respiratory Rate Blood Pressure Pulse Oximetry 08/16/25 20:20 08/17/25 00:00 08/17/25 04:00 Temperature 97.1 F L Pulse Rate 79 77 76 Respiratory Rate 16 Blood Pressure 180/78 H Pulse Oximetry 95 08/17/25 04:42 08/17/25 09:06 Temperature 97.1 F L Pulse Rate 74 74 Respiratory Rate 18 Blood Pressure 116/71 Pulse Oximetry 95 Intake/Output Intake/Output: Intake & Output 08/14/25 08/15/25 08/16/25 08/17/25 23:59 23:59 23:59 23:59 Intake Total 1145 905 220 550 Output Total 600 1850 3000 650 Balance 545 -945 -2780 -100 Meds/Results Medications: Active Medications Generic Name Dose Route Start Last Admin Trade Name Freq PRN Reason Stop Dose Admin Acetaminophen 650 mg 08/11/25 00:22 Acetaminophen 325 Mg Tablet PO Q6H PRN Mild Pain (1-3) or Fever Albuterol 2 puff 08/10/25 21:20 Albuterol Sulfate (*Sp) Aerosol 1 Puff INHALATION Q4HRT PRN Shortness Of Breath Or Wheezin Albuterol/Ipratropium 3 ml 08/11/25 00:09 Ipratropium 0.5 Mg/Albuterol Sulfate 2.5 Mg (Base) Ampul.Neb 3 Ml INHALATION Q6HRT PRN Shortness of breath and wheezi Allopurinol 100 mg 08/11/25 09:00 08/17/25 09:05 Allopurinol 100 Mg Tablet PO 100 mg DAILY NIGEL Administration Apixaban 5 mg 08/11/25 09:00 08/17/25 09:06 Apixaban 5 Mg Tablet PO 5 mg Q12HR NIGEL Administration Aspirin 81 mg 08/11/25 09:00 08/17/25 09:06 Aspirin 81 Mg Enteric Tablet PO 81 mg DAILY NIGEL Administration Benzocaine 1 lozenge 08/10/25 23:18 08/11/25 00:12 Benzocaine/Menthol (*Bkc) 18 Ea Lozenge PO 1 lozenge PRN PRN Administration Sore Throat Benzonatate 100 mg 08/11/25 09:00 08/17/25 09:06 Benzonatate 100 Mg Capsule PO 100 mg TID NIGEL Administration Cephalexin HCl 250 mg 08/11/25 21:00 08/11/25 21:17 Cephalexin 250 Mg Capsule PO 250 mg On Hold: 08/12/25 09:00 HS NIGEL Administration Fluticasone/Umeclidinium/Vilanterol 1 puff 08/11/25 08:00 08/17/25 09:16 Fluticasone/Umeclidin/Vilanter 200-62.5-25 Mcg Ellipta INHALATION 1 puff DAILYRT NIGEL Administration Furosemide 40 mg 08/11/25 09:00 08/17/25 09:06 Furosemide 40 Mg Tablet PO 40 mg QAM NIGEL Administration Gabapentin 100 mg 08/11/25 09:00 08/17/25 09:05 Gabapentin 100 Mg Capsule PO 100 mg BID NIGEL Administration Guaifenesin 600 mg 08/11/25 09:00 08/17/25 09:05 Guaifenesin 12 Hr 600 Mg Tabcr PO 600 mg Q12HR NIGEL Administration Loratadine 10 mg 08/11/25 09:00 08/17/25 09:06 Loratadine 10 Mg Tablet PO 10 mg QAM NIGEL Administration Metoprolol Tartrate 50 mg 08/11/25 09:00 08/17/25 09:06 Metoprolol Tartrate 50 Mg Tab PO 50 mg Q12HR NIGEL Administration Multivitamins/Minerals 1 tablet 08/11/25 09:00 08/17/25 09:06 Opti-Gen Tab PO 1 tablet DAILY NIGEL Administration Pantoprazole Sodium 40 mg 08/11/25 09:00 08/17/25 09:06 Pantoprazole 40 Mg Tablet PO 40 mg QAM NIGEL Administration Polyethylene Glycol 17 gm 08/11/25 09:00 08/17/25 09:07 Polyethylene Glycol 3350 17 Gm Powd.Pack PO Not Given QAM NIGEL Potassium Chloride 10 meq 08/11/25 09:00 08/17/25 09:07 Potassium Chloride 10 Meq Er Tablet PO 10 meq BID NIGEL Administration Prochlorperazine Maleate 10 mg 08/10/25 21:20 Prochlorperazine Maleate 5 Mg Tablet PO Q8H PRN Nausea Rosuvastatin Calcium 20 mg 08/11/25 09:00 08/17/25 09:05 Rosuvastatin 20 Mg Tablet PO 20 mg DAILY NIGEL Administration Sacubitril/Valsartan 2 tab 08/11/25 09:00 08/17/25 09:07 Sacubitril/Valsartan 24-26 Mg Tablet PO 2 tab Q12HR NIGEL Administration Senna/Docusate Sodium 2 tab 08/11/25 09:00 08/17/25 09:06 Senna/Docusate Sodium Tablet PO 2 tab BID NIGEL Administration Sodium Chloride 10 ml 08/16/25 22:00 08/17/25 04:59 Saline Lock Flush IV PUSH 10 ml Q8HR NIGEL Administration Sodium Chloride 10 ml 08/16/25 15:23 Saline Lock Flush IV PUSH PRN PRN Flush Sodium Chloride 20 ml 08/16/25 15:23 Saline Lock Flush IV PUSH PRN PRN after blood draws Tamsulosin HCl 0.4 mg 08/11/25 09:00 08/17/25 09:06 Tamsulosin Hcl 0.4 Mg Capsule PO 0.4 mg DAILY NIGEL Administration Tramadol HCl 25 mg 08/10/25 21:20 Tramadol Hcl (*Crx) 25 Mg Tablet PO Q6H PRN Pain Rated 6 or Greater Radiology Results: ITS Impressions Chest X-Ray 08/10/25 15:12 IMPRESSION: 1. Small bilateral pleural effusions with associated bibasilar atelectasis and/or pneumonia. Head CT 08/10/25 16:05 Impression: 1.No acute intracranial abnormality. Chest/Abdomen/Pelvis CT 08/10/25 17:25 IMPRESSION: 1. Small focus of right lower lobe bronchopneumonia superimposed on chronic lung disease. 2. No acute intra-abdominal process. 3. Thickened appendix, correlate for symptoms of chronic appendicitis. The differential includes an appendiceal lesion, adnexal neoplasm is not excluded. Surgical consultation suggested. 4. Left renal lesion incompletely evaluated. Contrast-enhanced CT or MRI is recommended Labs Labs: Laboratory Results - last 24 hr 08/16/25 08/17/25 08/17/25 09:50 05:58 06:33 WBC 8.8 8.6 RBC 4.00 L 4.12 L Hgb 11.9 L 12.2 L Hct 38.2 L 39.1 L MCV 95.5 94.9 MCH 29.8 29.6 MCHC 31.2 L 31.2 L RDW 13.0 13.1 Plt Count 341 373 MPV 9.9 10.3 Sodium 139 139 Potassium 4.7 4.7 Chloride 103 103 Carbon Dioxide 33 H 29 Anion Gap 3 L 7 BUN 56 H 54 H Creatinine 1.18 1.09 Estim Creat Clear Calc 41 44 Estimated GFR 58 L > 60 Glucose 115 H 101 Calcium 10.1 9.9 Magnesium 2.7 H 2.5 H
--- NOTE | 2025-08-17 12:28 | PCNFU ---
Nutrition Follow-Up Complete: Inadequate oral intake related to loss of appetite, increased needs from wounds as evidenced by intakes 0-10%, deep tissue pressure injury Goal:Adequate PO intake to support wound healing Pt slowly progressing to goal, continue with same goal Pt current nutrition is Regular, CORI BID, Ensure BID. Nutrition recommendation: increase Ensure to TID Last recorded weight is 88.9 kg. Bowel Motility: +BM 08/16 Labs Reviewed: Hgb:12.2, HCT:39.1, BUN:54 Meds Noted: KCL, miralax, protonix, lasix, eliquis Skin: DTPI to left buttocks Additional Notes: Pt continues on a regular diet, intake 0-50% and varied. Will increase Ensure to TID for additional supplementation. Agree with orders, encourage po intake of meals and supplements. MOnitoring intakes, weights, labs, skin, supplement tolerance, feeding Follow up in 5 days
[2025-08-17] MEDS: NACL 0.9% IRRIGATION POUR BOTTL 1,000 ML 1000 ML (13:00)
--- NOTE | 2025-08-17 13:16 | WPDURCON ---
Assessment and Plan Assessment and plan (1) Gross hematuria: Code(s): R31.0 - Gross hematuria Status: Acute Assessment and Plan: - Urine culture sent today to rule out UTI - Etiology likely Segundo trauma vs. UTI vs. radiation cystitis potentiated by anticoagulation use - Bladder irrigated to clear at noon; at 4 pm clothes separator in color red urine in Segundo bag. No visible clots and Segundo draining without issue. Hgb stable. 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 Pt history obtained from at bedside and RN; pt still with some confusion. States that when the Segundo was first placed urine was draining clear, yellow up until last night when output became a deep red. No clots noted. No changes in patients confusion/weakness with onset. Pt receiving Meropenem for pneumonia. Pt states that he will occasionally experience gross hematuria when performing CIC but it is typically less significant and self-resolves. Pt currently denies suprapubic pain, worsening fatigue, F/C/N/V. 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 BPH (benign prostatic hyperplasia) Overweight (BMI 25.0-29.9) Prostate CA Gout Arthritis Chronic GERD Lung cancer COPD (chronic obstructive pulmonary disease) HTN (hypertension) Hypercholesterolemia CAD (coronary artery disease) Surgical History Surgical History 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 Social History Social History Social History: Caffeine-coffe/tea/soda Smoking packs per day: 1 Smoking cigarettes per day: 20.0 Years smoked: 20 Smoking pack-years: 20.00 Smoking status: Former smoker Tobacco type: cigarettes Second hand tobacco smoke exposure: No Smoking end date: 11/04/94 Alcohol intake: never Drinks per week: 7 Alcohol use details: 1 GIN & TONIC/DAY Substance use: never Substance use type: does not use Lack of Transportation: No Lack of Food: Never True Current Housing: I Have Housing Concerned About Future Housing: No Difficulty Paying Gas/Electric Bills: No Difficulty Paying for Meds: No Currently Unemployed: No Education: Associate Degree Difficulty w/ Childcare or Family Care: YES Living arrangements: with family Additional living arrangements comments: Gender identity (if verbalized by the patient): Male Sexual Orientation (if Verbalized by the Patient): Straight or Heterosexual Spiritual care concerns: No Meds Home Medications and Allergies Home Medications ?Medication ?Instructions ?Recorded ?Confirmed ?Type allopurinol 100 mg tablet 100 mg PO DAILY 10/11/20 08/10/25 History tamsulosin 0.4 mg capsule 0.4 mg PO DAILY 10/11/20 08/10/25 History aspirin 81 mg tablet,delayed 81 mg PO DAILY 11/28/20 08/10/25 History release ocihdakuwhnk-iiffnsbl-cwehsl tablet 1 tablet PO DAILY 11/28/20 08/10/25 History prochlorperazine maleate 10 mg 10 mg PO Q8H PRN Nausea 07/26/21 08/10/25 History tablet (Compazine) albuterol sulfate 90 mcg/actuation 2 inh inhalation Q4H PRN shortness 03/17/24 08/10/25 History aerosol inhaler of breath or wheezing furosemide 40 mg tablet 40 mg PO QAM 03/17/24 08/10/25 History metoprolol tartrate 50 mg tablet 50 mg PO BID 03/17/24 08/10/25 History potassium chloride 10 mEq 10 meq PO BID 03/17/24 08/10/25 History capsule,extended release rosuvastatin 20 mg tablet 20 mg PO DAILY 03/17/24 08/10/25 History fluticasone fur. 200 mcg-umeclid 1 inh inhalation DAILY 07/30/25 08/10/25 History 62.5 mcg-vilant 25 mcg inhalat.powder (Trelegy Ellipta) apixaban 5 mg tablet (Eliquis) 5 mg PO Q12HR #60 tabs 08/01/25 08/10/25 Rx cephalexin 250 mg capsule 250 mg PO HS #30 caps 08/01/25 08/10/25 Rx acetaminophen 325 mg tablet 975 mg PO Q8H 08/10/25 08/10/25 History benzocaine 6 mg-menthol 10 mg 1 jaime mucous membrane Q2H PRN sore 08/10/25 08/10/25 History lozenges throat benzonatate 100 mg capsule 100 mg PO TID 08/10/25 08/10/25 History cetirizine 10 mg tablet (24Hour 10 mg PO DAILY 08/10/25 08/10/25 History Allergy) gabapentin 100 mg capsule 100 mg PO BID 08/10/25 08/10/25 History pantoprazole 40 mg tablet,delayed 40 mg PO QAM 08/10/25 08/10/25 History release polyethylene glycol 3350 17 gram 17 g PO QAM 08/10/25 08/10/25 History oral powder packet sacubitril 24 mg-valsartan 26 mg 2 tablet PO BID 08/10/25 08/10/25 History tablet (Entresto) senna-docusate sodium tablet 2 tablet PO BID 08/10/25 08/10/25 History tramadol 50 mg tablet 25 mg PO Q6H PRN PAIN RATED 6 OR 08/10/25 08/10/25 History GREATER Allergies Allergy/AdvReac Type Severity Reaction Status Date / Time No Known Allergies Allergy Verified 08/10/25 15:56 Vital Signs Vital Signs - 24 hr 08/16/25 16:00 08/16/25 16:00 08/16/25 20:05 Temperature 35.8 C L Pulse Rate 71 67 77 Respiratory Rate 18 Blood Pressure 102/89 Pulse Oximetry 96 Oxygen Delivery 08/16/25 20:16 08/16/25 20:20 08/17/25 00:00 Temperature 36.2 C L Pulse Rate 77 79 77 Respiratory Rate 16 Blood Pressure 180/78 H Pulse Oximetry 95 Oxygen Delivery 08/17/25 04:00 08/17/25 04:42 08/17/25 08:00 Temperature 36.2 C L Pulse Rate 76 74 Respiratory Rate 18 Blood Pressure 116/71 Pulse Oximetry 95 Oxygen Delivery Room Air 08/17/25 08:00 08/17/25 09:06 08/17/25 09:16 Temperature Pulse Rate 80 74 84 Respiratory Rate 16 Blood Pressure Pulse Oximetry Oxygen Delivery Exam Const: General: comfortable and no acute distress Resp: Effort & Inspection: normal respiratory effort GI: Inspection: non-distended Urinary Catheter: Urinary Catheter: patent and draining and urine red Skin: General skin exam: normal color and no rashes or lesions noted Neuro: Speech: normal speech Extrem: General: normal to inspection Results Labs 08/17/25 06:33 08/17/25 05:58 Labs: Short CBC 08/17/25 Range/Units 06:33 WBC 8.6 (4.5-10.0) K/mm3 Hgb 12.2 L (14.0-18.0) g/dL Hct 39.1 L (42.0-52.0) % Plt Count 373 (150-375) k/mm3 BMP 08/17/25 05:58 Sodium 139 Potassium 4.7 Chloride 103 Carbon Dioxide 29 BUN 54 H Creatinine 1.09 Glucose 101 Calcium 9.9
--- NOTE | 2025-08-17 14:55 | PCOTNOTE ---
Per RN and Care Coordination. Patient to be discharged this afternoon.
[2025-08-18] VITALS (9 sets, daily range): BP systolic 105–133; BP diastolic 50–60; PULSE 68–97; RESP 16–18; TEMP 36.1–36.4; O2SAT 93–98
[2025-08-18] MEDS: SALINE LOCK FLUSH 10 ML IV PUSH ×2 (05:00→13:13)
[2025-08-18 06:32] LABS: Hematocrit 37.9 % (42.0-52.0); Hemoglobin 11.8 g/dL (14.0-18.0); Mean Corpuscular HGB Conc 31.1 g/dl (32-36); Mean Corpuscular Hemoglobin 29.8 pg (26-34); Mean Corpuscular Volume 95.7 fl (80-100); Platelet Count Result 360 k/mm3 (150-375); Red Blood Count 3.96 M/mm3 (4.6-6.20); White Blood Count 7.6 K/mm3 (4.5-10.0)
[2025-08-18 07:23] LABS: Anion Gap 4 mmol/L (4-12); Blood Urea Nitrogen 80 mg/dL (9-20); Calcium 9.8 mg/dL (8.4-10.2); Carbon Dioxide 33 mmol/L (22-30); Chloride 101 mmol/L (98-107); Estimated CRCL calculation 28 ml/min; Estimated Glomerular Filt Rate 42; Glucose 130 mg/dL (65-110); Magnesium 2.8 mg/dL (1.6-2.3); Potassium 4.3 mmol/L (3.4-5.0); Sodium 138 mmol/L (137-145)
[2025-08-18] MEDS: FLUTICASONE/UMECLIDIN/VILANTER 200-62.5-25 MCG ELLIPTA 1 PUFF INHALATION (07:53)
[2025-08-18] MEDS: SACUBITRIL/VALSARTAN 24-26 MG TABLET 2 TAB PO ×2 (09:18→20:31)
[2025-08-18] MEDS: TAMSULOSIN HCL 0.4 MG CAPSULE PO (09:18)
[2025-08-18] MEDS: METOPROLOL TARTRATE 50 MG TAB PO ×2 (09:19→20:30)
[2025-08-18] MEDS: POTASSIUM CHLORIDE 10 MEQ ER TABLET PO ×2 (09:20→17:12)
[2025-08-18] MEDS: ASPIRIN 81 MG ENTERIC TABLET PO (09:20)
[2025-08-18] MEDS: GABAPENTIN 100 MG CAPSULE PO ×2 (09:20→17:12)
[2025-08-18] MEDS: OPTI-GEN TAB 1 TABLET PO (09:20)
[2025-08-18] MEDS: PANTOPRAZOLE 40 MG TABLET PO (09:20)
[2025-08-18] MEDS: LORATADINE 10 MG TABLET PO (09:21)
[2025-08-18] MEDS: BENZONATATE 100 MG CAPSULE PO ×3 (09:21→17:12)
[2025-08-18] MEDS: ROSUVASTATIN 20 MG TABLET PO (09:21)
[2025-08-18] MEDS: guaiFENesin 12 HR 600 MG TABCR PO ×2 (09:21→20:31)
[2025-08-18] MEDS: APIXABAN 5 MG TABLET PO ×2 (09:21→20:31)
[2025-08-18] MEDS: FUROSEMIDE 40 MG TABLET PO (09:21)
--- NOTE | 2025-08-18 10:09 | WPDUROPN2 ---
Progress Note: A&P Assessment and Plan (1) Gross hematuria: Code(s): R31.0 - Gross hematuria Status: Acute Assessment and Plan: - Urine culture pending - Culture driven antibiotics per primary service. - Based upon conversation with Rubi (the ), patient is to be discharged with a Domingo catheter and follow up with Jeremie AMOS in the office in 1 week for discussion of long-term catheter versus clean intermittent catheterization. Subjective Subjective Date/Time Seen: 08/18/25 10:09 Interval history: No acute events overnight. Urine is dark yellow in domingo this morning. is at bedside and is condescending and disagreeable to any recommendations. Review of Systems Constitutional: Constitutional: Denies chills, Reports fatigue and Reports weakness Cardiovascular: Cardiovascular: Denies chest pain and Reports dyspnea Respiratory: Respiratory: Reports cough and Reports dyspnea Gastrointestinal: Gastrointestinal: Denies abdominal pain Genitourinary: Genitourinary: Reports hematuria and Denies flank pain Musculoskeletal: Musculoskeletal: Denies myalgias Neurologic: Denies Abnormal speech present, Reports confusion and Reports weakness Psychiatric: Psychiatric: Reports confusion Endocrine: Endocrine: Reports fatigue Exam Const: General: comfortable, no acute distress and confusion Resp: Effort & Inspection: normal respiratory effort GI: Inspection: non-distended Urinary Catheter: Urinary Catheter: patent and draining (dark yellow) Skin: General skin exam: normal color and no rashes or lesions noted Neuro: General: confusion Speech: normal speech and No Abnormal speech present Extrem: General: normal to inspection Objective Data Vital Signs Vital Signs: Vital Signs - 24 hr 08/17/25 12:00 08/17/25 13:37 08/17/25 13:49 Temperature 98.4 F Pulse Rate 71 73 Respiratory Rate 24 H Blood Pressure 83/53 L 113/52 L Pulse Oximetry 95 08/17/25 16:00 08/17/25 20:00 08/17/25 20:17 Temperature Pulse Rate 79 101 H 88 Respiratory Rate Blood Pressure Pulse Oximetry 08/17/25 21:39 08/18/25 00:00 08/18/25 04:00 Temperature 97.6 F Pulse Rate 88 68 71 Respiratory Rate 20 Blood Pressure 123/57 L Pulse Oximetry 93 08/18/25 05:04 08/18/25 09:19 Temperature 97.6 F Pulse Rate 75 97 Respiratory Rate 16 Blood Pressure 127/60 Pulse Oximetry 98 Intake/Output Intake/Output: Intake & Output 08/15/25 08/16/25 08/17/25 08/18/25 23:59 23:59 23:59 23:59 Intake Total 664 444 6489 550 Output Total 1850 3000 825 250 Balance -945 -1690 1005 300 Meds/Results Medications: Active Medications Generic Name Dose Route Start Last Admin Trade Name Freq PRN Reason Stop Dose Admin Acetaminophen 650 mg 08/11/25 00:22 Acetaminophen 325 Mg Tablet PO Q6H PRN Mild Pain (1-3) or Fever Albuterol 2 puff 08/10/25 21:20 Albuterol Sulfate (*Sp) Aerosol 1 Puff INHALATION Q4HRT PRN Shortness Of Breath Or Wheezin Albuterol/Ipratropium 3 ml 08/11/25 00:09 Ipratropium 0.5 Mg/Albuterol Sulfate 2.5 Mg (Base) Ampul.Neb 3 Ml INHALATION Q6HRT PRN Shortness of breath and wheezi Allopurinol 100 mg 08/11/25 09:00 08/18/25 09:21 Allopurinol 100 Mg Tablet PO 100 mg DAILY NIGEL Administration Apixaban 5 mg 08/11/25 09:00 08/18/25 09:21 Apixaban 5 Mg Tablet PO 5 mg Q12HR NIGEL Administration Aspirin 81 mg 08/11/25 09:00 08/18/25 09:20 Aspirin 81 Mg Enteric Tablet PO 81 mg DAILY NIGEL Administration Benzocaine 1 lozenge 08/10/25 23:18 08/11/25 00:12 Benzocaine/Menthol (*Bkc) 18 Ea Lozenge PO 1 lozenge PRN PRN Administration Sore Throat Benzonatate 100 mg 08/11/25 09:00 08/18/25 09:21 Benzonatate 100 Mg Capsule PO 100 mg TID NIGEL Administration Cephalexin HCl 250 mg 08/11/25 21:00 08/11/25 21:17 Cephalexin 250 Mg Capsule PO 250 mg On Hold: 08/12/25 09:00 HS NIGEL Administration Fluticasone/Umeclidinium/Vilanterol 1 puff 08/11/25 08:00 08/18/25 07:53 Fluticasone/Umeclidin/Vilanter 200-62.5-25 Mcg Ellipta INHALATION 1 puff DAILYRT NIGEL Administration Furosemide 40 mg 08/11/25 09:00 08/18/25 09:21 Furosemide 40 Mg Tablet PO 40 mg QAM NIGEL Administration Gabapentin 100 mg 08/11/25 09:00 08/18/25 09:20 Gabapentin 100 Mg Capsule PO 100 mg BID NIGEL Administration Guaifenesin 600 mg 08/11/25 09:00 08/18/25 09:21 Guaifenesin 12 Hr 600 Mg Tabcr PO 600 mg Q12HR NIGEL Administration Loratadine 10 mg 08/11/25 09:00 08/18/25 09:21 Loratadine 10 Mg Tablet PO 10 mg QAM NIGEL Administration Metoprolol Tartrate 50 mg 08/11/25 09:00 08/18/25 09:19 Metoprolol Tartrate 50 Mg Tab PO 50 mg Q12HR NIGEL Administration Multivitamins/Minerals 1 tablet 08/11/25 09:00 08/18/25 09:20 Opti-Gen Tab PO 1 tablet DAILY NIGEL Administration Pantoprazole Sodium 40 mg 08/11/25 09:00 08/18/25 09:20 Pantoprazole 40 Mg Tablet PO 40 mg QAM NIGEL Administration Polyethylene Glycol 17 gm 08/11/25 09:00 08/18/25 09:22 Polyethylene Glycol 3350 17 Gm Powd.Pack PO Not Given QAM NIGEL Potassium Chloride 10 meq 08/11/25 09:00 08/18/25 09:20 Potassium Chloride 10 Meq Er Tablet PO 10 meq BID NIGEL Administration Prochlorperazine Maleate 10 mg 08/10/25 21:20 Prochlorperazine Maleate 5 Mg Tablet PO Q8H PRN Nausea Rosuvastatin Calcium 20 mg 08/11/25 09:00 08/18/25 09:21 Rosuvastatin 20 Mg Tablet PO 20 mg DAILY NIGEL Administration Sacubitril/Valsartan 2 tab 08/11/25 09:00 08/18/25 09:18 Sacubitril/Valsartan 24-26 Mg Tablet PO 2 tab Q12HR NIGEL Administration Senna/Docusate Sodium 2 tab 08/11/25 09:00 08/18/25 09:23 Senna/Docusate Sodium Tablet PO Not Given BID NIGEL Sodium Chloride 10 ml 08/16/25 22:00 08/18/25 05:00 Saline Lock Flush IV PUSH 10 ml Q8HR NIGEL Administration Sodium Chloride 10 ml 08/16/25 15:23 Saline Lock Flush IV PUSH PRN PRN Flush Sodium Chloride 20 ml 08/16/25 15:23 Saline Lock Flush IV PUSH PRN PRN after blood draws Tamsulosin HCl 0.4 mg 08/11/25 09:00 08/18/25 09:18 Tamsulosin Hcl 0.4 Mg Capsule PO 0.4 mg DAILY NIGEL Administration Tramadol HCl 25 mg 08/10/25 21:20 Tramadol Hcl (*Crx) 25 Mg Tablet PO Q6H PRN Pain Rated 6 or Greater Radiology Results: ITS Impressions Chest X-Ray 08/10/25 15:12 IMPRESSION: 1. Small bilateral pleural effusions with associated bibasilar atelectasis and/or pneumonia. Head CT 08/10/25 16:05 Impression: 1.No acute intracranial abnormality. Chest/Abdomen/Pelvis CT 08/10/25 17:25 IMPRESSION: 1. Small focus of right lower lobe bronchopneumonia superimposed on chronic lung disease. 2. No acute intra-abdominal process. 3. Thickened appendix, correlate for symptoms of chronic appendicitis. The differential includes an appendiceal lesion, adnexal neoplasm is not excluded. Surgical consultation suggested. 4. Left renal lesion incompletely evaluated. Contrast-enhanced CT or MRI is recommended Labs Labs: Laboratory Results - last 24 hr 08/18/25 08/18/25 05:09 06:13 WBC 7.6 RBC 3.96 L Hgb 11.8 L Hct 37.9 L MCV 95.7 MCH 29.8 MCHC 31.1 L RDW 13.2 Plt Count 360 MPV 10.2 Sodium 138 Potassium 4.3 Chloride 101 Carbon Dioxide 33 H Anion Gap 4 BUN 80 H D Creatinine 1.55 H Estim Creat Clear Calc 28 Estimated GFR 42 L Glucose 130 H POC Capillary Glucose 132 H Calcium 9.8 Magnesium 2.8 H
--- NOTE | 2025-08-18 14:04 | P.DS_ITS ---
DS: Admitting Diagnosis Discharge Date 08/18/2025 Admitting Diagnosis PNA, UTI DS: Discharge Diagnosis Discharge Diagnosis (1) Pneumonia: Qualifiers: Laterality: bilateral Lung location: unspecified part of lung Pneumonia type: due to unspecified organism Qualified Code(s): J18.9 - Pneumonia, unspecified organism Code(s): J18.9 - Pneumonia, unspecified organism Status: Acute Assessment and Plan: Recently discharged with pneumonia. Blood cultures grew ESBL during last admission. Did not meet SIRS criteria, however blood cultures drawn which remains negative. Chest x-ray reveals small bilateral pleural effusions and with associated bibasilar atelectasis and/or pneumonia. CT chest abdomen pelvis reveals small focus of right lower lobe bronchopneumonia superimposed on chronic lung disease. WBC 10.5. -Repeat CT 08/10/2025 with small focus of right lower lobe bronchopneumonia superimposed on chronic lung disease. No acute intra- abdominal process. Thickened appendix correlate for symptoms of chronic appendicitis. Left renal lesion incompletely evaluated contrast enhanced CT or MRI recommended -restarted meropenem 1 g q.12 on 08/10, completed course -daily CBC with normalization of white cell count -DuoNebs p.r.n. -Tylenol p.r.n. -Mucinex 600 Q 12 -lozenge PRN -BC no growth at 48 hours. (2) UTI (urinary tract infection): Code(s): N39.0 - Urinary tract infection, site not specified Status: Acute Assessment and Plan: UA concerning for UTI with 3+ blood, 3+ leukocyte esterase, rbc's > 100, WBC 21- 50. Urine culture grew Klebsiella pneumoniae on 07/30 with multiple resistances, see report -culture showed Klebsiella previously susceptible to meropenem, started on 08/11 in the ED -cephalexin 250 mg held -Due to hematuria, his discharge delayed. No hematuria and eliquis resumed 08/14. Hemoglobin remains stable. Hematuria return. Will ask Urology to see. -Blood culture no growth at 48 hours 08/18: Urology seen and signed off on for pt to D/C today with domingo and with uro f/u in x1 week. (3) Diastolic dysfunction with chronic heart failure: Code(s): I50.32 - Chronic diastolic (congestive) heart failure Status: Chronic Assessment and Plan: -Continue Entresto 2 tabs Q 12 -continue furosemide 40 mg daily -potassium chloride 10 mEq p.o. b.i.d. (4) GERD (gastroesophageal reflux disease): Qualifiers: Esophagitis presence: esophagitis presence not specified Qualified Code(s): K21.9 - Gastro-esophageal reflux disease without esophagitis Code(s): K21.9 - Gastro-esophageal reflux disease without esophagitis Status: Acute Assessment and Plan: Continue daily pantoprazole 40 mg (5) BPH (benign prostatic hyperplasia): Qualifiers: Lower urinary tract symptom detail: urinary retention Lower urinary tract symptom presence: symptoms present Qualified Code(s): N40.1 - Benign prostatic hyperplasia with lower urinary tract symptoms; R33.8 - Other retention of urine Code(s): N40.0 - Benign prostatic hyperplasia without lower urinary tract symptoms Status: Acute Assessment and Plan: History of intermittent straight cath after prostate cancer. Currently has indwelling Domingo catheter in place due to retention and noted in the emergency department on 08/10. -Continue tamsulosin 0.4 daily (6) COPD (chronic obstructive pulmonary disease): Qualifiers: COPD type: unspecified COPD Qualified Code(s): J44.9 - Chronic obstructive pulmonary disease, unspecified Code(s): J44.9 - Chronic obstructive pulmonary disease, unspecified Status: Chronic Assessment and Plan: Not in acute exacerbation -DuMitchell p.r.n. -continue Trelegy Ellipta (7) HTN (hypertension): Qualifiers: Hypertension type: primary hypertension Qualified Code(s): I10 - Essential (primary) hypertension Code(s): I10 - Essential (primary) hypertension Status: Acute Assessment and Plan: Metoprolol 50 q.12 hours (8) Hypercholesterolemia: Code(s): E78.00 - Pure hypercholesterolemia, unspecified Status: Acute Assessment and Plan: Continue rosuvastatin 20 mg daily (9) Afib: Code(s): I48.91 - Unspecified atrial fibrillation Status: Acute Assessment and Plan: Sinus rhythm on ECG in ED -Continue apixaban and metoprolol Plan Discharge with uro f/u in x1 week DS: Summary Hospital Course Reason for hospitalization: PNA, UTI Hospital Course: 89-year-old male presents emergency department for evaluation for worsening generalized weakness and some confusion. Patient did have a recent UTI and pneumonia. Patient's urine is concerning for urinary tract infection and patient's CT scan of the chest does show evidence of a bronchial pneumonia. Blood cultures ordered and patient was restarted on meropenem. Head CT was negative for any acute intracranial abnormality. Patient is afebrile but does have a leukocytosis of 10.5 and hemoglobin 11.3. Patient has a INR of 1.9. Patient has a creatinine of 1.5 days of the toes baseline. Patient's CRP is elevated at 16.1. ED course: UA concerning for UTI. Vital signs stable on arrival to ED. CBC revealed WBC 10.5 and hemoglobin 11.3. Creatinine 1.85 with baseline being normal. AST 88, ALT 82, alk-phos 115. BUN 63. CRP 16.1. Viral PCR negative. Blood cultures drawn and patient restarted on meropenem. Chest x-ray reveals small bilateral pleural effusions and with associated bibasilar atelectasis and/or pneumonia. Head CT reveals no acute intracranial abnormality. CT chest abdomen pelvis reveals small focus of right lower lobe bronchopneumonia superimposed on chronic lung disease, no acute intra-abdominal process, thickened appendix, and left renal lesion incompletely evaluated. Pt restarted ertapenum and received it throughout his inpt stay for ESBL BC and PNA per CT. Pt also with UTI, recent UTI on 07/30 with multiple resistances, started on cephalexin after erta course was completed for UTI. Pt ended up having hematuria which delayed his discharge initially. Hematuria resolved even with continuation of eliquis. Discharge delayed further due to acute delirium, resolved. Hematuria returned, urology was consulted. Urology irrigated bladder, hematuria resolved. Pt to go back to residence with domingo catheter with uro f/u in x1 week. Status at Discharge Functional status at discharge: uses cane/walker Overall status at discharge: patient is progressing back to baseline Time Spent with Patient Time attestation: Total time spent providing and/or coordinating discharge services: 30 Exam Narrative: GENERAL: Comfortable, no acute distress, elderly RESPIRATORY: clear to auscultation, no increased respiratory effort CARDIO: Regular rate and rhythm GI: soft, nontender, bowel sounds present SKIN/EXTREMITIES: no rashes, no redness or tenderness, trace edema Domingo catheter with bloody urine in bag DS: Data Data Completed and Pending Completed studies during hospitalization: Labs, urine, CXR, C/A/P CT Pending studies at discharge: Labs on day of discharge: Labs from last 24 hours 08/18/25 08/18/25 06:13 05:09 WBC 7.6 RBC 3.96 L Hgb 11.8 L Hct 37.9 L MCV 95.7 MCH 29.8 MCHC 31.1 L RDW 13.2 Plt Count 360 MPV 10.2 Sodium 138 Potassium 4.3 Chloride 101 Carbon Dioxide 33 H Anion Gap 4 BUN 80 H D Creatinine 1.55 H Estim Creat Clear Calc 28 Estimated GFR 42 L Glucose 130 H POC Capillary Glucose 132 H Calcium 9.8 Magnesium 2.8 H Imaging Radiologist's impression: C/A/P CT: IMPRESSION: 1. Small focus of right lower lobe bronchopneumonia superimposed on chronic lung disease. 2. No acute intra-abdominal process. 3. Thickened appendix, correlate for symptoms of chronic appendicitis. The differential includes an appendiceal lesion, adnexal neoplasm is not excluded. Surgical consultation suggested. 4. Left renal lesion incompletely evaluated. Contrast-enhanced CT or MRI is recommended Head CT: Impression: 1.No acute intracranial abnormality. Discharge Plan Discharge Attending physician on discharge: Nish Almanza Consulting providers: Jennie Banerjee; Pasquale Mcdonald; Bertha Lizarraga; Jeremie Rose; Jack Love; Rubi Estevez; Nish Almanza; Geronimo Cooley; Angela Horta; Lynn Young; Shailesh Marcos; Kenny Martinez; Nathan Amin Discharging Clinician: Bertha Lizarraga Anticipated Discharge Date/Time: 08/18/25 16:05 Patient Disposition: Inpatient Rehab Facility Activity: march shower Diet: heart healthy Discharge Instructions: 1. Urology would like to see you in x1 week as a follow-up with your urinary catheter. You have completed a course of antibiotics here in the hospital for a urinary tract infection. If this urine sample comes back positive on the urine culture (it takes x3 days to result) we will let you know and send you a new antibiotic. 2. Make sure to also follow-up with your primary care provider and update them that you were in the hospital for pneumonia and UTI along with your other health issues. Continue to check your blood pressure and blood sugar at home if applicable. Keep your scheduled appts with your primary care provider and any specialist that you may see. Return to the emergency department if you develop sudden shortness of breath, chest pain, a fever of greater than 101.5, or nausea, vomiting, abd pain, or diarrhea that does not go away. Follow-up with your primary care provider within 1-2 weeks, they will want to be updated on your inpatient stay in the hospital. Thank you for [facility] for your healthcare needs. Patient Instructions: Apixaban (By mouth), Heart Failure (GEN), Urinary Tract Infection in Men (DC), Domingo Catheter Placement and Care (DC), Hematuria (ED), Bacterial Pneumonia (DC) Patient Language: Italian Stand Alone Forms: General Discharge Information Follow-up/Referrals: Dinesh,Susan Paige MD [Primary Care Provider, Unknown] - 2 Weeks Jeremie Vang PA [Physician Breaker Unit Assembler, Urology] - 1 Week Discharge Medications: Continued allopurinol 100 mg tablet 100 mg PO DAILY tamsulosin 0.4 mg capsule 0.4 mg PO DAILY prochlorperazine maleate [Compazine] 10 mg tablet 10 mg PO Q8H PRN (Reason: Nausea) albuterol sulfate 90 mcg/actuation HFA aerosol inhaler 2 inh inhalation Q4H PRN (Reason: shortness of breath or wheezing) furosemide 40 mg tablet 40 mg PO QAM metoprolol tartrate 50 mg tablet 50 mg PO BID potassium chloride 10 mEq capsule, extended release 10 meq PO BID rosuvastatin 20 mg tablet 20 mg PO DAILY aspirin 81 mg Tablet,Delayed Release (Dr/Ec) 81 mg PO DAILY [id number] Tablet 1 tablet PO DAILY Trelegy Ellipta 200-62.5-25 mcg blister with device 1 inh INHALATION DAILY Eliquis 5 mg Tablet 5 mg PO Q12HR Qty: 60 2RF cephalexin 250 mg capsule 250 mg PO HS Qty: 30 3RF sacubitril-valsartan [Entresto] 24-26 mg tablet 2 tablet PO BID benzocaine-menthol 6-10 mg lozenge 1 jaime mucous membrane Q2H PRN (Reason: sore throat) benzonatate 100 mg capsule 100 mg PO TID cetirizine [24Hour Allergy] 10 mg tablet 10 mg PO DAILY gabapentin 100 mg capsule 100 mg PO BID pantoprazole 40 mg tablet,delayed release (DR/EC) 40 mg PO QAM polyethylene glycol 3350 17 gram powder in packet 17 g PO QAM senna-docusate sodium Tablet 2 tablet PO BID tramadol 50 mg tablet 25 mg PO Q6H PRN (Reason: PAIN RATED 6 OR GREATER) Discontinued acetaminophen 325 mg tablet 975 mg PO Q8H Date of admission: 08/12/25 10:26 Primary Care Provider: Dinesh,Susan Paige Admitting Provider: Brian Chacko Attending physician on admission: Bertha Lizarraga Condition: Stable Quality VTE Prophylaxis VTE prophylaxis: pharmacologic ordered Hospitalist MIPS Heart Failure (Exclusion) Patient has history of Heart Transplant or Left Ventricular Assistive Device?: No IF YES, STOP HERE Heart Failure (Qualifier) Patient has current or prior documentation of LVEF less than or equal to 40%, or mod/servere depressed LVSF?: No IF NO, STOP HERE
--- NOTE | 2025-08-18 17:36 | WNDPHOTO ---
PHOTO ONLY - See Nursing Notes and/ or assessments for documentation.
--- NOTE | 2025-08-19 11:32 | PC.NURSE ---
Repeat Urine cx shows no growth. Azalea Lizarraga NP aware.
== END 2025-08-18 20:45 | DRG 190 ==
LOC: ANHED 17:57 → ANHIMU 19:00 → ANH3MEDSUR 08-11 16:55
PROVIDERS: Family Medicine; Internal Medicine; Student in an Organized Health Care Education/Training Program; Admitting Provider General Practice; Emergency Provider Emergency Medicine; PCP Internal Medicine Pulmonary Disease
DX: J44.0 Chronic obstructive pulmonary disease with (acute) lower respiratory infection (principal); J18.9 Pneumonia, unspecified organism; I50.32 Chronic diastolic (congestive) heart failure; N39.0 Urinary tract infection, site not specified; J90 Pleural effusion, not elsewhere classified; N17.9 Acute kidney failure, unspecified; N40.0 Benign prostatic hyperplasia without lower urinary tract symptoms; R31.0 Gross hematuria; E78.00 Pure hypercholesterolemia, unspecified; K21.9 Gastro-esophageal reflux disease without esophagitis; N40.1 Benign prostatic hyperplasia with lower urinary tract symptoms; R33.8 Other retention of urine; J44.9 Chronic obstructive pulmonary disease, unspecified; R41.0 Disorientation, unspecified; I11.0 Hypertensive heart disease with heart failure; I25.10 Atherosclerotic heart disease of native coronary artery without angina pectoris; R60.0 Localized edema; N31.2 Flaccid neuropathic bladder, not elsewhere classified; D72.829 Elevated white blood cell count, unspecified; I48.91 Unspecified atrial fibrillation; F10.90 Alcohol use, unspecified, uncomplicated; Z20.822 Contact with and (suspected) exposure to COVID-19; Z96.0 Presence of urogenital implants; Z85.51 Personal history of malignant neoplasm of bladder; Z87.440 Personal history of urinary (tract) infections; Z79.2 Long term (current) use of antibiotics; Z87.891 Personal history of nicotine dependence; Z79.82 Long term (current) use of aspirin; Z85.46 Personal history of malignant neoplasm of prostate; Z95.1 Presence of aortocoronary bypass graft
CPT/HCPCS: 36415; 70450; 71046; 71250; 74176; 80048; 80053; 81001; 82274; 82948; 83605; 83735; 85025; 85027; 85610; 85730; 86140; 87040; 87086; 87637; 93005; 94640; 96365; 96366; 97110; 97161; 97166; 97530; 97535; 99285; A9270; G0378; J2185

== ENCOUNTER 2025-10-13 09:54 | Outpatient (CLI) | payer MEDICARE, SELFPAY ==
--- NOTE | 2025-10-13 | ECHO_ITS ---
Patient Info Name: Cedric Mckinney Age: 89 years : 1935 Gender: Male Ht: 68 in Wt: 200 lbs BSA: 2.11 m2 HR: 90 bpm BP: 127 / 95 mmHg Heart Rhythm: Sinus Rhythm Technical Quality: Fair Exam Date: 10/13/2025 10:05 AM Patient Status: O Admit Date: 10/13/2025 Exam Type: CA echo doppler color flow Complete two-dimensional, color flow and Doppler transthoracic echocardiogram is performed. Convention Planner: Kristen Marcelino Summary 1. Complete two-dimensional, color flow and Doppler transthoracic echocardiogram is performed. 2. Left ventricular systolic function is normal, estimated at 60-65. 3. Left ventricular septal wall motion is abnormal with septal motion related to bundle branch block. 4. The left ventricular diastolic function is grade I diastolic dysfunction. 5. There is mild tricuspid valve regurgitation. 6. No pulmonary hypertension, estimated pulmonary arterial systolic pressure is 30 mmHg. 7. There is mild pulmonic regurgitation. Left Ventricle Left ventricular chamber dimension is normal. Left ventricular systolic function is normal, estimated at 60-65. There is no increased left ventricular wall thickness. Left ventricular septal wall motion is abnormal with septal motion related to bundle branch block. The left ventricular diastolic function is grade I diastolic dysfunction. Right Ventricle Right ventricular chamber dimension is normal. Right ventricular systolic function is normal. Left Atria Left atrial chamber dimension is normal. Right Atria Right atrial chamber dimension is normal. Aortic Valve The aortic valve is trileaflet. There is mild aortic valve sclerosis. There is no aortic valve stenosis. There is no aortic valve regurgitation. Pulmonic Valve The pulmonic valve is normal. There is no pulmonic valve stenosis. There is mild pulmonic regurgitation. Mitral Valve The mitral valve has normal leaflets. There is no mitral valve stenosis. There is no mitral valve regurgitation. Tricuspid Valve The tricuspid valve leaflets are normal. There is no significant tricuspid valve stenosis. There is mild tricuspid valve regurgitation. No pulmonary hypertension, estimated pulmonary arterial systolic pressure is 30 mmHg. Pericardium/Pleural The pericardium appears normal. There is no pericardial effusion. Inferior Vena Cava Normal inferior vena cava with >50% collapse upon inspiration consistent with normal right atrial pressure, 5 mmHg. Aorta The aortic root size at the sinus of Valsalva is normal. The prox ascending aorta size is normal. Left Ventricular Outflow Tract Name Value Normal LVOT 2D LVOT Diameter 2.0 cm LVOT Doppler LVOT Peak Velocity 89 cm/s LVOT Peak Gradient 3 mmHg LVOT Mean Gradient 2 mmHg LVOT VTI 14 cm LVOT VTI/AV VTI Ratio 0.6 LVOT Stroke Volume 43 ml LVOT CO 3.4 l/min LVOT CI 1.6 l/min/m2 Pulmonic Valve Name Value Normal RVOT Doppler RVOT Peak Velocity 81 cm/s RVOT Peak Gradient 3 mmHg PV Doppler PV Peak Velocity 117 cm/s PV Peak Gradient 6 mmHg Mitral Valve Name Value Normal MV Diastolic Function MV E Peak Velocity 53 cm/s MV A Peak Velocity 90 cm/s MV E/A 0.6 MV Decel Time (PW) 229 ms MV Annular TDI MV E/e' (Septal) 9.2 MV E/e' (Lateral) 5.6 MV E/e' (Average) 7.4 Tricuspid Valve Name Value Normal TV Regurgitation Doppler TR Peak Velocity 249 cm/s TR Peak Gradient 25 mmHg Estimated PAP/RSVP RA Pressure 5 mmHg <=5 PA Systolic Pressure 30 mmHg <36 RV Systolic Pressure 30 mmHg <36 TV Annular TDI TV Lateral Kristin s' Velocity 5.2 cm/s >=9.5 Aorta Name Value Normal Ascending Aorta Ao Root Diameter (MM) 3.2 cm Ao Root Diam Index (MM) 1.5 cm/m2 Aortic Valve Name Value Normal AV Doppler AV Peak Velocity 140 cm/s AV Peak Gradient 8 mmHg AV Mean Gradient 4 mmHg AV VTI 24 cm AV Area (Cont Eq VTI) 1.8 cm2 >=3.0 AV Area (Cont Eq Milton) 2.0 cm2 AV DI (Milton) 0.64 AV Regurgitation 2D LVOT Area 3.1 cm2 Ventricles Name Value Normal LV Dimensions 2D/MM IVS Diastolic Thickness (2D) 1.0 cm 0.6-1.0 LVID Diastole (2D) 3.7 cm 4.2-5.8 LVIW Diastolic Thickness (2D) 1.0 cm 0.6-1.0 LVID Systole (2D) 2.5 cm 2.5-4.0 LVOT Diameter 2.0 cm LV Mass (2D Cubed) 114.10 g 88.00-224.00 LV Mass Index (2D Cubed) 54 g/m2 49-115 Relative Wall Thickness (2D) 0.54 <=0.42 LV Fractional Shortening/Ejection Fraction 2D/MM LV Fractional Shortening (2D) 32 % 25-43 LV EF (2D Teichholz) 60 % LV Diastolic Volume (4C MOD) 64 ml LV EF (4C MOD) 63 % LV Diastolic Volume (2C MOD) 62 ml LV EF (2C MOD) 67 % LV Diastolic Volume (BP MOD) 65 ml 62-150 LV Diastolic Volume Index (BP MOD) 31 ml/m2 34-74 LV Systolic Volume (BP MOD) 22 ml 21-61 LV Systolic Volume Index (BP MOD) 11 ml/m2 11-31 LV EF (BP MOD) 65 % 52-72 LV Diastolic Length (4C) 7.7 cm LV Systolic Length (4C) 6.4 cm LV Stroke Volume (4C MOD) 41 ml Atria Name Value Normal LA Dimensions LA Dimension (MM) 3.7 cm 3.0-4.0 LA Volume (4C A-L) 75 ml LA Volume (BP A-L) 79 ml RA Dimensions RA Area (4C) 15.7 cm2 <=18.0 Report Signatures
== END 2025-10-13 09:55 | disposition home or self-care (01) ==
PROVIDERS: PCP Internal Medicine Pulmonary Disease
DX: R93.1 Abnormal findings on diagnostic imaging of heart and coronary circulation (principal); I25.5 Ischemic cardiomyopathy; I50.20 Unspecified systolic (congestive) heart failure
CPT/HCPCS: 93306